=== PATIENT | male | born 1965 | race Caucasian/White ===

== ENCOUNTER → 2016-12-09 | Day surgery (SDC) | payer BC ==
[2016-12-02 11:43] VITALS: Ht 190.5 cm; Wt 106.8 kg
[~2016-12-09] VITALS: Ht 190.5 cm; Wt 106.8 kg
[~2016-12-09] MED LIST: ADVIN50/60 INH; ASCO500T16 PO; ATROPINE SULFATE 0.1 MG/ML 5ML SYR IV PRN; CALC1TAB25 PO; CHOL2000 PO; CLINDAMYCIN PHOS 150 MG/ML 2 ML VIAL IV SCH; CYCL10TA6 PO; DEXAMETHASONE SOD INJ 4 MG/ML VIAL ONE; DIAZ10TA3 PO; ECHI125T PO; EpHEDrine SULFATE 50MG/5ML SYR ONE; EpHEDrine SULFATE INJ 50 MG/ML AMP IV PRN; FENTANYL CITRATE INJ 50 MCG/1 ML 2 ML VIAL IV PRN; FENTANYL CITRATE INJ 50 MCG/1 ML 2 ML VIAL ONE; FLNIN/ NAE; HYDR25TA5 PO; HYDROmorphone INJ 1 MG/ML SYR IV PRN; KRIL1CAP24 PO; LACTATED RINGER'S 1000ML 1,000 ML IV SCH; LIDOCAINE HCL 2% 2 ML VIAL (20MG/ML) ONE; LISI20TA3 PO; LXP10 PO; MCRK20 PO; MELA1TAB5 PO; MIDAZOLAM HCL 1 MG/ML 2ML VIAL ONE; MULT-513 PO; NURSING VERBAL MED ORDER ONE; ONDANSETRON INJ 2 MG/ML 2 ML VIAL IV PRN; ONDANSETRON INJ 2 MG/ML 2 ML VIAL ONE; OXYCODONE/ACETAMINOPHEN 5-325 TAB ONE; PROMETHAZINE HCL INJ 12.5 MG in SODIUM CHLORIDE 0.9% 50ML 50 ML IV PRN; PROMETHAZINE HCL INJ 25 MG/ML 1 ML VIAL ONE; PROPOFOL IV EMULSION 10 MG/ML 20 ML VIAL IV ONE; ROPIVACAINE 0.5% 5 MG/ML 30 ML VIAL ONE; SNG10 PO; SODIUM CHLORIDE 0.9% 1000ML 1,000 ML IV SCH; VNTHFA/IN INH
--- NOTE | 2016-12-09 06:45 | History & Physical Bridge Note ---
H&P Re-Evaluation Bridge Note: I have examined the patient, reviewed the History & Physical and in the interval since the performance of the History & Physical I have noted the following changes of clinical significance: No changes noted
--- NOTE | 2016-12-09 06:47 | Discharge Instructions ---
Discharge Instructions Visit Reason for Visit: Left Shoulder Acromioclavicular Arthritis, Impinge Discharge Discharge Diagnosis / Problem: same Discharge Goals Goal(s): Decrease discomfort, Improve function, Increase independence Medications Stopped Medications Name(s): na Restart Stopped Medication(s): use scripts as directed Activity Recommendations Activity Limitations: as noted below Lifting Limitations: until after follow-up appointment Exercise/Sports Limitations: until after follow-up appointment May Resume Sexual Activity: when tolerated Shower/Bathe: keep incision dry Driving or Machine Use: resume 1 day after discharge Anesthesia . Post Anesthesia Instructions: If you have had General Anesthesia or IV Sedation: * Do not drive today. * Resume driving when surgeon permits. * Do not make important decisions or sign legal documents today. * Call surgeon for: 1. Temperature elevations greater than 101 degrees F. 2. Uncontrollable pain. 3. Excessive bleeding. 4. Persistent nausea and vomiting. 5. Medication intolerance (nausea, vomiting or rash). * For nausea and vomiting use only clear liquids such as: tea, soda, bouillon until nausea subsides, then gradually increase diet as tolerated. * If you have any concerns or questions, call your surgeon's office. If physician is unavailable and it is an emergency, call 911 or go to the nearest emergency room. . Instructions / Follow-Up Instructions / Follow-Up The following are instructions to follow after "Shoulder Surgery" including, Acromioplasty, Rotator Cuff Repair and Instability Surgery ACTIVITY RECOMMENDATIONS: * Minimize activity after surgery. * No excessive walking, jogging, sports or laboring. * Return to activity is individualized depending on the patient and type of surgery. * Driving is not permitted until at least your first post operative visit. Please ask your doctor when it is safe to resume driving. * Expect increased discomfort with increased activity. Continue to ice the shoulder as needed. SCHOOL/WORK RECOMMENDATIONS: * You may return to sedentary work or school when you are feeling more comfortable. This is usually 3-7 days after surgery. MEDICATIONS: * You will have a prescription for pain medication and an anti-inflammatory medication after surgery. * Use the pain medication for severe pain and the anti-inflammatory for less severe pain. Once the pain medication has run out, try to use the anti-inflammatory medication. If this is not effective, contact the office for assistance. * The pain medication may cause nausea, constipation and drowsiness. You should see how they affect you before driving or similar activity. * The anti-inflammatory medication may cause stomach upset and bleeding. If this occurs let your doctor know immediately . * Take a stool softener like Colace or a laxative like Senokot to prevent constipation. DIET: * Resume previous diet. SPECIAL CARE: ICE: You have the option of an ice cooler, gel packs or ice bags. * If you have an ice cooler, refer to the instructions for that device. The ice cooler may be used continuously. * If you do not have an ice cooler, you will need to use ice bags or gel packs. Do not apply ice directly to the skin. Use a thin dressing or herb shirt between the skin and ice bag. Apply ice for 20-30 minutes and repeat every 2-4 hours. This is especially important for the first 7-10 days after surgery. Once the pain improves, use ice as needed. ELEVATION: * You may be more comfortable sleeping in an upright position. Use the sling to elevate your arm. DRESSING: * Your dressing will be changed at your first therapy appointment approximately 4-5 days after surgery. Band-aids, tape strips or gauze may be applied. You may then change your dressing daily. * Reapply dressing followed by the EBIce cooling pad (if chosen) and then the sling. * Always wash your hands prior to touching the incision area. * Once the stitches are removed, you may leave the wound open to air or cover with gauze. * Expect some bloody drainage for the first few days after surgery. * Leave the tape strips, if present, in place for 5-7 days. * Band-aids and gauze may be changed daily. * There may be a gauze pad in your armpit area. This can be changed daily or replaced by a dry washcloth. SLING/BRACE: * You will need to use a sling or brace after surgery. The length of time the sling is used is dependent upon the type of surgery performed. * Arthroscopic Acromioplasty requires use of the sling for 2-4 weeks for comfort. * Labral procedures and Rotator Cuff Repairs require use of the sling for a longer period of time. Please check with your doctor prior to discontinuing the sling. BATHING: * You may shower or sponge-bathe immediately after surgery. The post operative shoulder dressing is mostly water-tight. You may shower right over this dressing, but be reasonably careful not to get the gauze or incision wet. * Once the dressing has been changed on the fourth or fifth day after surgery, you may shower and get the incision wet. * Wash with regular soap and water. * Do not bathe (submerge the incision), soak, swim or use a hot tub until the incision is completely healed over with normal skin and the doctor has given the OK to proceed. * There is no need to apply any ointments, powders or salves to your incision. * Do not apply alcohol or hydrogen peroxide directly to the incision. * Diluted peroxide (50:50 mixture with sterile saline) may be used to clean dried blood from around the incision area. THERAPY: * You will begin therapy four or five days after surgery. * Organized therapy with the therapist is important for the first 2-4 months after surgery depending on the type of procedure. During that time you will attend therapy 1-3 times per week. * You will also need to do daily exercises for range of motion and strength as instructed. * Patients who have a Capsular Shift Procedure will need to abide by temporary range of motion limitations. * Patients having Rotator Cuff Surgery are not allowed to actively lift their arms until 4-6 weeks after surgery. * Please check with your doctor regarding appropriate motion restrictions. FOLLOW UP VISIT: * If not already scheduled, please call the office at to schedule a follow-up appointment for 10 days after surgery and monthly thereafter. Diet Recommendations Recommended Home Diet: resume previous diet Pending Studies Studies pending at discharge: no Medical Emergencies . Who to Call and When: Medical Emergencies: If at any time you feel your situation is an emergency, please call 911 immediately. . Non-Emergent Contact Non-Emergency issues call your: Specialist Call Non-Emergent contact if: temperature is above 101.5 . . "Provider Documentation" section prepared by Wolf Chandler.
[2016-12-09] MEDS: EpINEphrine INJ 1MG/ML AMP 1 MG/ML AMP ONE (07:25)
--- NOTE | 2016-12-09 08:02 | [facility] Post Operative Brief Note ---
Immediate Operative Summary Operative Date Dec 09, 2016. Pre-Operative Diagnosis Left Shoulder AC Joint Arthritis, Impingement and Adhesive Capsulitis Post-Operative Diagnosis Same Procedure(s) Performed Left Shoulder Arthroscopy, Subacromial Decompression, Distal Clavicle Excision, Manipulation, Exam Under Anesthesia Surgeon Dr. Chandler Developer Programmer Analyst Surgeon(s) Dr. Pandey; Darwin Trejo PA-C Estimated Blood Loss 0 mL Findings adhesive capsulitis/ac djd/impingement Fluids (cc crystalloids) 700cc Specimens None Drains none Anesthesia lma/block Complication(s) None Disposition Recovery Room / PACU
--- NOTE | 2016-12-09 08:39 | OPERATIVE REPORT ---
DATE OF OPERATION: 12/09/2016 PREOPERATIVE DIAGNOSIS: Chronic restrictive capsular disease left shoulder with pain and impingement, AC joint arthropathy. POSTOPERATIVE DIAGNOSIS: Same. OPERATION PERFORMED: 1. Exam under anesthesia. 2. Diagnostic arthroscopy. 3. Resection AC joint. 4. Subacromial decompression with bursectomy. 5. Manipulation under anesthesia. SURGEON: Dr. Chandler. STEEL CHECKER: Dr. Durand. SECOND STILL OPERATOR GIN: Bhupendra Trejo PA-C PERIOPERATIVE SITUATION: Medically cleared male with intractable left shoulder pain has been going on for an extended period of time, has failed conservative management and wants to proceed with surgical treatment. OPERATION AND FINDINGS: OPERATION: The patient appropriately identified, site verified, consent verified, 900 mg of clindamycin confirmed as being given. The left shoulder was examined revealing forward flexion to 100 degrees, external rotation to 0, abduction to 80 degrees with external rotation to -10 in that position. Once anesthetized, the patient was then manipulated forward flexion got to full, abduction external rotation to 90 degrees and 110, external rotation at the side to 50, internal rotation at the 90 degree position to 50. The arm was then prepped and draped in usual routine fashion and scope placed in the posterior portal 2 cm medial and inferior to posterolateral tip of the acromion. Inspection of the joint revealed no major articular disease. The area of capsular releases from the manipulation were noted. These were lightly debrided. The biceps anchor was solid. Rotator cuff attachment was good on the articular side. This part of the procedure was then terminated. The subacromial space entered. There was an exuberant bursa. An anterolateral portal was then made with tedious positioning was finally identified and the shaver started and resected some of the bursa. The CA ligament was quite thick, it was released with the thermal device. The acromion was a type 3. It was burred down to a flat surface. The AC joint was hypertrophic. It was resected on its anterior surface then using the anterior portal, the medial surface of the acromion and the lateral surface of the clavicle resected. Viewing from the straight lateral portal there was an excellent resection. Viewing the rotator cuff there was no tearing noted. All debris was removed from the subacromial space, the procedure then terminated. All instruments and fluid were removed. The portals closed with 4-0 nylon, dressed with Xeroform, 4 x 4 gauze, ABD pads and Ioban dressing. Estimated blood loss trace. Crystalloid 700 mL. DVT prophylaxis none. I attest to the content of the Intraoperative Record and any orders documented therein. Any exceptio ns are noted below.
[2016-12-09 09:24] VITALS: TEMP 36.4
[2016-12-09 10:10] VITALS: BP 142/86; PULSE 71; O2SAT 96
--- NOTE | 2016-12-09 10:22 | Anesthesia Progress Nt - [facility] ---
Anesthesia Post Op Note Date & Time Dec 09, 2016 at 10:21 Vital Signs Pain Intensity: 6 Vital Signs Past 12 Hours Date Time Temp Pulse Resp B/P Pulse Ox O2 Delivery O2 Flow Rate FiO2 12/09/16 09:24 36.4 71 16 144/92 93 Room Air 12/09/16 09:18 81 14 127/71 12/09/16 09:18 85 14 89 12/09/16 09:15 36.4 12/09/16 09:14 128/84 12/09/16 09:13 76 15 94 12/09/16 09:13 77 12 92 12/09/16 09:08 134/76 12/09/16 09:03 77 15 129/79 91 12/09/16 09:03 77 15 12/09/16 08:58 77 19 91 12/09/16 08:58 75 26 130/84 94 12/09/16 08:54 133/85 12/09/16 08:49 154/105 12/09/16 08:48 90 19 12/09/16 08:48 90 19 93 12/09/16 08:43 81 21 138/83 98 12/09/16 08:43 85 13 98 12/09/16 08:38 133/85 12/09/16 08:33 75 19 121/90 98 12/09/16 08:33 75 19 12/09/16 08:28 77 15 127/78 97 12/09/16 08:28 73 15 97 12/09/16 08:23 126/80 12/09/16 08:18 75 15 127/85 98 12/09/16 08:18 74 16 98 12/09/16 08:13 76 7 12/09/16 08:13 36.3 76 16 120/77 97 Diffusion Mask 8 12/09/16 08:13 75 7 126/79 97 12/09/16 07:00 68 14 117/85 96 Nasal Cannula 2 12/09/16 06:55 57 16 123/91 93 Nasal Cannula 2 12/09/16 06:54 61 16 129/83 92 Nasal Cannula 2 12/09/16 06:49 36.5 73 20 115/82 95 Room Air Notes Mental Status: alert / awake / arousable, participated in evaluation Pt Amnestic to Procedure: Yes Nausea / Vomiting: adequately controlled Pain: adequately controlled Airway Patency, RR, SpO2: stable & adequate BP & HR: stable & adequate Hydration State: stable & adequate Anesthetic Complications: no major complications apparent
--- NOTE | 2016-12-09 13:41 | OPERATIVE REPORT ---
PREOPERATIVE DIAGNOSIS: Left shoulder chronic adhesive capsulitis, impingement, and AC joint arthropathy. POSTOPERATIVE DIAGNOSIS: Left shoulder same. PROCEDURE: Left shoulder arthroscopy, resection of the AC joint, subacromial decompression with bursectomy, and manipulation under anesthesia. SURGEON: Dr. Chandler. PLANER TAILER: Dr. Durand. SECOND PLANER TAILER: Bhupendra Trejo PA-C. HISTORY OF PRESENT ILLNESS: This 51-year-old white male presented to the office with complaints of left shoulder pain and loss of motion that had failed conservative care. He elected to proceed with surgical intervention in hopes of improving his range of motion and comfort. Preoperative x-ray and MRI were obtained. OPERATION: The patient was administered regional block and then taken to the operating room where he was given general anesthetic. He was prepped and draped in the usual sterile fashion. Please see Dr. Chandler's operative report for specifics of the procedure. I was present for the entire case from initial patient positioning through final wound closure. Assistance was provided in arthroscopy and final wound closure. The patient was taken to the recovery room in satisfactory condition.
== END | disposition home or self-care (01) ==
LOC: X.SURG 06:21
PROVIDERS: ATTEND Physical Medicine & Rehabilitation Sports Medicine
DX: M25.612 Stiffness of left shoulder, not elsewhere classified (principal); M19.012 Primary osteoarthritis, left shoulder; I10 Essential (primary) hypertension; J45.909 Unspecified asthma, uncomplicated

== ENCOUNTER → 2016-12-10 | Outpatient (CLI) | payer BC ==
[~2016-12-10] MED LIST changes: -ATROPINE SULFATE 0.1 MG/ML 5ML SYR IV PRN; -CLINDAMYCIN PHOS 150 MG/ML 2 ML VIAL IV SCH; -DEXAMETHASONE SOD INJ 4 MG/ML VIAL ONE; -EpHEDrine SULFATE 50MG/5ML SYR ONE; -EpHEDrine SULFATE INJ 50 MG/ML AMP IV PRN; -FENTANYL CITRATE INJ 50 MCG/1 ML 2 ML VIAL IV PRN; -FENTANYL CITRATE INJ 50 MCG/1 ML 2 ML VIAL ONE; -HYDROmorphone INJ 1 MG/ML SYR IV PRN; -LACTATED RINGER'S 1000ML 1,000 ML IV SCH; -LIDOCAINE HCL 2% 2 ML VIAL (20MG/ML) ONE; -MIDAZOLAM HCL 1 MG/ML 2ML VIAL ONE; -NURSING VERBAL MED ORDER ONE; -ONDANSETRON INJ 2 MG/ML 2 ML VIAL IV PRN; -ONDANSETRON INJ 2 MG/ML 2 ML VIAL ONE; -OXYCODONE/ACETAMINOPHEN 5-325 TAB ONE; -PROMETHAZINE HCL INJ 12.5 MG in SODIUM CHLORIDE 0.9% 50ML 50 ML IV PRN; -PROMETHAZINE HCL INJ 25 MG/ML 1 ML VIAL ONE; -PROPOFOL IV EMULSION 10 MG/ML 20 ML VIAL IV ONE; -ROPIVACAINE 0.5% 5 MG/ML 30 ML VIAL ONE; -SODIUM CHLORIDE 0.9% 1000ML 1,000 ML IV SCH
== END | disposition home or self-care (01) ==
LOC: C.LAB 13:20
PROVIDERS: ATTEND Family Medicine
DX: R07.9 Chest pain, unspecified (principal)

== ENCOUNTER → 2017-01-19 | Outpatient (CLI) | payer BC | END | disposition home or self-care (01) | LOC: C.RDSM 10:40 | PROVIDERS: ATTEND Physical Medicine & Rehabilitation Sports Medicine | DX: M75.02 Adhesive capsulitis of left shoulder (principal) ==

== ENCOUNTER → 2017-04-01 | Outpatient (CLI) | payer BC ==
[2017-04-01 16:36] LABS: THYROID STIMULATING HORMONE 2.19 uIu/ml (0.300-4.500)
== END | disposition home or self-care (01) ==
LOC: C.LAB1850 14:18
PROVIDERS: ATTEND Physician Assistant
DX: R53.83 Other fatigue (principal)

== ENCOUNTER 2017-04-17 16:03 | Inpatient (IN) | payer BC ==
[~2017-04-17] VITALS: Ht 190.5 cm; Wt 112.2 kg
[~2017-04-17 16:03] MED LIST changes: -KRIL1CAP24 PO; -MCRK20 PO
[2017-04-17] MEDS ORDERED: ASPIRIN 324 MG CHEW PO STA (16:30)
[2017-04-17] MEDS ORDERED: NITROGLYCERIN OINT 2% 1GM PACKET EXT ONE (16:30)
[2017-04-17] MEDS ORDERED: KRIL1CAP24 PO (16:32)
[2017-04-17 17:06] LABS: BASO % 0.2 %; BASO ABS # 0.01 K/uL (0-0.2); COMPLETE YES; EOS % 6.3 %; HEMATOCRIT 43.9 % (42-52); LYMPH % 26.6 %; LYMPH ABS # 1.69 K/uL (1.2-3.4); MEAN CELL VOLUME 83.3 fL (80-100); MEAN CORPUSCULAR HEMOGLOBIN 28.1 pg (25-34); MEAN CORPUSCULAR HGB CONC 33.7 g/dl (32-36); MEAN PLATELET VOLUME 10.7 fL (7.4-10.4); MONO % 5.8 %; NEUT % 61.1 %; PLATELET COUNT 213 K/uL (130-400); RED BLOOD COUNT 5.27 M/uL (4.7-6.1); WHITE BLOOD COUNT 6.35 K/uL (4.8-10.8)
[2017-04-17 17:14] LABS: PARTIAL THROMBOPLASTIN RATIO 1.1; PROTHROMBIN TIME (PATIENT) 10.6 SECONDS (9.0-12.0)
[2017-04-17] MEDS ORDERED: AMIODARONE IV BOLUS / DRIP IV STA ×2 (17:21→19:13)
[2017-04-17 17:25] LABS: BUN/CREATININE RATIO 18.6 (10-20); CALCIUM 8.4 mg/dl (8.5-10.1); CREATININE 1.2 mg/dl (0.60-1.40); MAGNESIUM 2.4 mg/dl (1.8-2.4); POTASSIUM 2.9 mmol/L (3.5-5.1)
[2017-04-17] MEDS ORDERED: AMIODARONE 150MG / 100ML D5W ONE (17:27)
[2017-04-17 17:30] LABS: URINE APPEARANCE CLEAR (CLEAR); URINE BILIRUBIN NEG (NEG); URINE COLOR YELLOW; URINE NITRITE NEG (NEG); URINE SPECIFIC GRAVITY 1.012 (1.000-1.030); UROBILINOGEN NEG (NEG); ZZUR CULT IF INDIC CLEAN CATCH NO
[2017-04-17] MEDS ORDERED: AMIODARONE 360MG / 200ML D5W ONE (17:32)
[2017-04-17] MEDS ORDERED: POTASSIUM CHLORIDE 10 MEQ / 100ML WTR IV STA (17:32)
[2017-04-17] MEDS ORDERED: AMIODARONE / D5W 100 ML IV STA (17:33)
--- NOTE | 2017-04-17 17:33 | DIAGNOSTIC IMAGING REPORT ---
CHEST ONE VIEW PORTABLE CLINICAL HISTORY: Chest pain, shortness of breath and dizziness. COMPARISON STUDY: Chest radiograph February 06, 2015. FINDINGS: Lung volumes are normal. There is no pneumothorax or pleural effusion. There is no consolidation to suggest pneumonia. Cardiomediastinal silhouette is stable. There is no evidence of pulmonary edema. The appearance of the chest is unchanged. IMPRESSION: No acute cardiopulmonary findings. Electronically signed by: Vasile Parikh M.D. 04/17/2017 5:32 PM Dictated Date/Time: 04/17/2017 5:31 PM
[2017-04-17 17:34] LABS: MANUAL MICROSCOPIC REQUIRED? NO; REVIEW REQ? NO
[2017-04-17 17:37] LABS: CKMB/CK RATIO 1.5 (0-3.0); THYROID STIMULATING HORMONE 2.04 uIu/ml (0.300-4.500)
[2017-04-17] MEDS ORDERED: AMIODARONE / D5W 200 ML IV SCH ×3 (17:45→23:45)
[2017-04-17 18:05] LABS: LYME DISEASE AB IGG NEG (NEG); LYME DISEASE AB IGM NEG (NEG)
[2017-04-17] MEDS ORDERED: NITROGLYCERIN 0.4 MG SL PER TAB CHARGE SL PRN (19:00)
[2017-04-17] MEDS ORDERED: ACETAMINOPHEN 325 MG TAB PO PRN (19:00)
[2017-04-17] MEDS ORDERED: ONDANSETRON INJ 2 MG/ML 2 ML VIAL IV PRN (19:00)
[2017-04-17] MEDS ORDERED: MAGNESIUM HYDROXIDE SUSP 30 ML UDC PO PRN (19:00)
[2017-04-17] MEDS ORDERED: ECHINACEA PO PRN (19:15)
[2017-04-17] MEDS ORDERED: ALBUTEROL HFA 8 GM INHALER INH PRN (19:15)
[2017-04-17] MEDS ORDERED: FLUTICASONE/SALMETEROL (ADVAIR) 500/50 INH 14 PUFF INH PRN (19:15)
--- NOTE | 2017-04-17 19:26 | EMERGENCY ROOM VISIT NOTE ---
History First contact with patient: 16:15 Chief Complaint: CHEST PAIN Stated Complaint: DIZZY,SOB,CHEST PAIN,SORE L ARM Nursing Triage Summary: pt c/o sob for last hour or so. has chest pain described as sore. soreness in left arm. pt reports hx of asthma does not feel like asthma. feels dizzy History of Present Illness The patient is a 51 year old male who presents to the Emergency Room with complaints of chest pain and shortness of breath for the past hour. He states that his left arm is with soreness but not distinct pain. The patient has a history of bad asthma, but this does not feel like his normal asthma exacerbations. The patient reports over the past few weeks he has had similar episodes that have lasted for a shorter duration before resolving. He states that his symptoms began today while he was sitting at his desk at work. The patient states that he did have lightheadedness and dizziness when walking outside to go to his car. The patient does not have a history of cardiac disease or diabetes. No recent travel history. He has not had fever or chills. He does not report other complaints and rates his discomfort a dull 8/ 10. He has not taken anything [id number] for his discomfort. He does not identify any alleviating or aggravating factors. Review of Systems More than 10 systems were reviewed and otherwise negative with the exception of history of present illness. Past Medical/Surgical History Medical Problems: (1) Asthma (2) Benign hypertension (3) Bronchitis (4) Chest pain (5) Depression (6) Migraines (7) Pneumonia (8) Vomiting Family History FH: cancer FHx: heart disease Hypertension Social History Smoking Status: Never Smoker Alcohol Use: occasionally Drug Use: none Marital Status: Housing Status: lives with family Occupation Status: employed Current/Historical Medications Scheduled Ascorbic Acid (Ascorbic Acid), 500 MG PO QAM Calcium W/ Magnesium (Calcium Magnesium 750), 2 TABS PO HS Cholecalciferol (Vitamin D3), 1 CAP PO QAM Cyclobenzaprine Hcl (Flexeril), 10 MG PO HS Diazepam (Valium), 10 MG PO HS Escitalopram Oxalate (Escitalopram Oxalate), 5 MG PO QAM Fluticasone Propionate (Fluticasone Propionate), 2 SPRAYS TG QAM Hydrochlorothiazide (Hydrochlorothiazide), 25 MG PO QAM Krill Oil (Krill Oil 500 mg), 500 MG PO QAM Lisinopril (Prinivil), 20 MG PO QAM Montelukast Sod (Montelukast Sodium), 10 MG PO QAM Multivitamins/Minerals (Mvi With Minerals), 1 TAB PO QAM Scheduled PRN Albuterol Hfa (Ventolin Hfa), 2-4 PUFFS INH Q6H PRN for SOB/Wheezing Echinacea (Echinacea), 2 TAB PO DAILY PRN for PRN Fluticasone Prop/Salmeterol (Advair Diskus 500/50 60 Dose), 1 PUFF INH BID PRN for PRN Allergies Coded Allergies: Amoxicillin (Verified Allergy, Unknown, RX AN , 04/17/17) Clavulanic Acid (Verified Allergy, Unknown, RX AN , 04/17/17) Erythromycin (Verified Allergy, Unknown, REACTION TO PCN AND AUGMENTIN, ) Penicillins (Verified Allergy, Unknown, REACTION AN - UNKNOWN, ) Tetracyclines (Verified Allergy, Unknown, VOMITING AND RASH, 04/17/17) Physical Exam Vital Signs Date Time Temp Pulse Resp B/P Pulse Ox O2 Delivery O2 Flow Rate FiO2 04/17/17 19:02 133/91 04/17/17 19:00 67 14 98 04/17/17 18:56 136/91 04/17/17 18:51 129/93 04/17/17 18:46 135/83 04/17/17 18:45 64 19 98 04/17/17 18:41 147/87 04/17/17 18:36 134/92 04/17/17 18:31 145/109 04/17/17 18:30 59 21 97 04/17/17 18:26 110/88 04/17/17 18:23 147/87 04/17/17 18:15 68 15 04/17/17 18:11 134/84 04/17/17 18:06 126/84 04/17/17 18:01 137/80 04/17/17 18:00 67 20 91 04/17/17 17:45 70 16 120/84 97 Room Air 04/17/17 17:35 72 16 136/90 98 Room Air 04/17/17 17:00 81 16 119/69 96 Room Air 04/17/17 16:42 77 5/26/17 16:21 98 Room Air 04/17/17 16:05 36.7 78 18 135/84 95 Room Air Physical Exam VITALS: Vitals are noted on the nurse's note and reviewed by myself. Vital signs stable. GENERAL: Well-developed, well-nourished, white male, who is in no acute distress and resting comfortably. Patient is cooperative with the examination. HEAD: Normocephalic atraumatic. HEART: Regular rate with frequent PVCs. No murmur appreciated. LUNGS: Clear to auscultation bilaterally without wheezes, rales or rhonchi. No retractions or accessory muscle use. ABDOMEN: Positive normal bowel sounds x 4. Soft, nontender, without masses or organomegaly. No guarding or rebound tenderness. MUSCULOSKELETAL: No muscle atrophy, erythema, or edema noted. Full range of motion without joint tenderness in all extremities. Medical Decision & Procedures ER Provider Diagnostic Interpretation: CHEST ONE VIEW PORTABLE CLINICAL HISTORY: Chest pain, shortness of breath and dizziness. COMPARISON STUDY: Chest radiograph February 06, 2015. FINDINGS: Lung volumes are normal. There is no pneumothorax or pleural effusion. There is no consolidation to suggest pneumonia. Cardiomediastinal silhouette is stable. There is no evidence of pulmonary edema. The appearance of the chest is unchanged. IMPRESSION: No acute cardiopulmonary findings. Laboratory Results 04/17/17 16:50 Red Blood Count 5.27, Mean Corpuscular Volume 83.3, Mean Corpuscular Hemoglobin 28.1, Mean Corpuscular Hemoglobin Concent 33.7, Mean Platelet Volume 10.7, Neutrophils (%) (Auto) 61.1, Lymphocytes (%) (Auto) 26.6, Monocytes (%) (Auto) 5.8, Eosinophils (%) (Auto) 6.3, Basophils (%) (Auto) 0.2, Neutrophils # (Auto) 3.88, Lymphocytes # (Auto) 1.69, Monocytes # (Auto) 0.37, Eosinophils # (Auto) 0.40, Basophils # (Auto) 0.01 04/17/17 16:50 Test 04/17/17 16:50 04/17/17 16:57 04/17/17 17:15 White Blood Count 6.35 K/uL (4.8-10.8) Red Blood Count 5.27 M/uL (4.7-6.1) Hemoglobin 14.8 g/dL (14.0-18.0) Hematocrit 43.9 % (42-52) Mean Corpuscular Volume 83.3 fL (80-100) Mean Corpuscular Hemoglobin 28.1 pg (25-34) Mean Corpuscular Hemoglobin Concent 33.7 g/dl (32-36) Platelet Count 213 K/uL (130-400) Mean Platelet Volume 10.7 fL (7.4-10.4) Neutrophils (%) (Auto) 61.1 % Lymphocytes (%) (Auto) 26.6 % Monocytes (%) (Auto) 5.8 % Eosinophils (%) (Auto) 6.3 % Basophils (%) (Auto) 0.2 % Neutrophils # (Auto) 3.88 K/uL (1.4-6.5) Lymphocytes # (Auto) 1.69 K/uL (1.2-3.4) Monocytes # (Auto) 0.37 K/uL (0.11-0.59) Eosinophils # (Auto) 0.40 K/uL (0-0.5) Basophils # (Auto) 0.01 K/uL (0-0.2) RDW Standard Deviation 38.0 fL (36.4-46.3) RDW Coefficient of Variation 12.6 % (11.5-14.5) Immature Granulocyte % (Auto) 0.0 % Immature Granulocyte # (Auto) 0.00 K/uL (0.00-0.02) Prothrombin Time 10.6 SECONDS (9.0-12.0) Prothromb Time International Ratio 1.0 (0.9-1.1) Activated Partial Thromboplast Time 28.2 SECONDS (21.0-31.0) Partial Thromboplastin Ratio 1.1 Anion Gap 9.0 mmol/L (3-11) Est Creatinine Clear Calc Drug Dose 89.0 ml/min Estimated GFR () 81.8 Estimated GFR (Non- 70.6 BUN/Creatinine Ratio 18.6 (10-20) Calcium Level 8.4 mg/dl (8.5-10.1) Magnesium Level 2.4 mg/dl (1.8-2.4) Total Bilirubin 0.5 mg/dl (0.2-1) Aspartate Amino Transf (AST/SGOT) 19 U/L (15-37) Alanine Aminotransferase (ALT/SGPT) 29 U/L (12-78) Alkaline Phosphatase 55 U/L (45-117) Total Creatine Kinase 94 U/L (39-308) Creatine Kinase MB 1.4 ng/ml (0.5-3.6) Creatine Kinase MB Ratio 1.5 (0-3.0) Total Protein 7.1 gm/dl (6.4-8.2) Albumin 3.6 gm/dl (3.4-5.0) Globulin 3.5 gm/dl (2.5-4.0) Albumin/Globulin Ratio 1.0 (0.9-2) Lipase 198 U/L (73-393) Thyroid Stimulating Hormone (TSH) 2.040 uIu/ml (0.300-4.500) Lyme Disease IgG Antibody NEG (NEG) Lyme Disease IgM Antibody NEG (NEG) Bedside D-Dimer 289 ng/mlFEU (0-450) Bedside Troponin I 0.000 ng/ml (0-0.045) Urine Color YELLOW Urine Appearance CLEAR (CLEAR) Urine pH 5.0 (4.5-7.5) Urine Specific [place] 1.012 (1.000-1.030) Urine Protein NEG (NEG) Urine Glucose (UA) NEG (NEG) Urine Ketones NEG (NEG) Urine Occult Blood NEG (NEG) Urine Nitrite NEG (NEG) Urine Bilirubin NEG (NEG) Urine Urobilinogen NEG (NEG) Urine Leukocyte Esterase NEG (NEG) Medications Administered Medications (Trade) Dose Ordered Sig/[place] Start Time Stop Time Status Last Admin Dose Admin Aspirin (Aspirin Chew) 324 mg NOW STAT PO 04/17/17 16:30 04/17/17 16:32 DC 04/17/17 17:00 324 MG Nitroglycerin (Nitroglycerin 2% Oint) 1 inch NOW ONCE EXT 04/17/17 16:30 04/17/17 16:32 DC 04/17/17 17:01 1 INCH Amiodarone HCL/ Dextrose (Nexterone / D5w) 150 mg STK-MED ONCE .ROUTE 04/17/17 17:27 04/17/17 17:28 DC 04/17/17 17:39 150 MG Potassium Chloride (Kcl 10 Meq / Wtr) 20 meq NOW STAT IV 04/17/17 17:32 04/17/17 17:34 DC 04/17/17 18:23 10 MEQ Amiodarone HCL/ Dextrose (Nexterone / D5w) 360 mg STK-MED ONCE .ROUTE 04/17/17 17:32 04/17/17 17:33 DC 04/17/17 17:40 360 MG ED Course Physical exam and history were performed. Nursing notes and EMR were reviewed. Patient appears to have chest pain, lightheadedness, and shortness of breath for the past few hours. EKG was performed and shows normal sinus rhythm at 86 bpm with frequent PVCs. There is a nonspecific T wave abnormality which appears new from 02/07/2015. IV access was established and labs were obtained. The patient was medicated as above. Chest x-ray was performed. The patient was placed on the ekg monitor tech. The patient's blood work is as above and was reviewed. He does not have a significant elevated white blood cell count, gross anemia, or significant bandemia. His potassium is 2.9 and this was repleted through the IV. Mag is within normal limits. The patient's d-dimer and troponin 1 are both negative. Chest x-rays without acute findings. After about 1 hour stay here in the emergency department the patient was found to have an 11 beat run of nonsustained ventricular tachycardia while on the monitor. I immediately reevaluated the patient following this episode, and he remained in stable condition. The patient case was discussed with my attending physician, Dr. Pedroza, and the patient was given a bolus of amiodarone with a drip. Other modalities were considered, however he is a bad asthmatic and beta blockers were felt contraindicated. The case was discussed with the on-call hospitalist, who agreed to evaluate the patient here in the emergency department for further management. Please see their dictation for further patient course, plan, and disposition. The chart was completed utilizing [employer] Speech Voice Recognition Software. Grammatical errors, random word insertions, pronoun errors, and incomplete sentences are an occasional consequence of this system due to software limitations, ambient noise, and hardware issues. Any formal questions or concerns about the content, text, or information contained within the body of this dictation should be directly addressed to the provider for clarification. . Medical Decision Differential diagnosis includes, but is not limited to: Myocardial infarction, dysrhythmia, pericarditis, pneumothorax, aortic aneurysm/dissection, DVT/PE, anxiety, GERD, PUD, electrolyte imbalance, thyroid disorder, pneumonia, bronchitis, pancreatitis, and others Impression Primary Impression: Ventricular tachycardia, non-sustained Additional Impression: Chest pain Departure Information Referrals Jhonny Damian M.D. (PCP) Patient Instructions [facility] Problem Qualifiers
--- NOTE | 2017-04-17 19:27 | History and Physical ---
History & Physical Date & Time of Service: April 17, 2017 at 19:16 Chief Complaint: Dizzy,Sob,Chest Pain,Sore L Arm Primary Care Physician: Jhonny Damian M.D. History of Present Illness Source: patient 51 y/o M c/o chest pain. Pt has been having chest pain on and off for the last two weeks. It was mostly on the L, but moved to the R on occasion. It would last 30-60 minutes and resolve spontaneously. This morning the chest pain was more intense and did not resolve. He was having chest tightness similar to when he has had asthma attacks in the past and felt like he couldn't catch his breath. He was not frankly SOB. Prior to the last two weeks, his only chest pain was asthma related and not similar to this at all. Pt states the last few weeks at work have been stressful for him. Today, he was looking forward to work as most of the office was off due to the long weekend. There was no stress there today. He has also noted occasional palpitations over the last two weeks. Pt denies fever, abd pain, n/v/c/d, LE pain or swelling. ROS as noted above, otherwise neg. Pt's EKG showed PVCs, however during his work-up he had an 11 beat run of vtach that resolved spontaneously. He was started on amio. Pt has not had further chest pain. He does have some R UE pain that started after his K infusion. After my interview and exam, nursing found me to report another 11 beat vtach run that again resolved spontaneously. She was actually in with the pt and he had no chest pain or other complaints with this. Past Medical/Surgical History Medical Problems: (1) Asthma Status: Chronic (2) Benign hypertension Status: Chronic (3) Bronchitis Status: Resolved (4) Depression Status: Chronic (5) Migraines Status: Chronic (6) Pneumonia Status: Resolved (7) Vomiting Status: Resolved Insomnia RLS Only prior hospitalizations were for asthma Family History Family history was reviewed; no changes noted. Social History Smoking Status: Never Smoker Alcohol Use: none Drug Use: none Marital Status: Occupational Status: employed Immunizations History of Influenza Vaccine: Yes Influenza Vaccine Date: Oct 26, 2006 History of Tetanus Vaccine?: Yes History of Pneumococcal: Yes Pneumococcal Date: March 26, 2005 History of Hepatitis B Vaccine: Unknown Multi-Drug Resistant Organisms History of MDRO: No Allergies Coded Allergies: Amoxicillin (Verified Allergy, Unknown, RX AN , 04/17/17) Clavulanic Acid (Verified Allergy, Unknown, RX AN INFANT, 04/17/17) Erythromycin (Verified Allergy, Unknown, REACTION TO PCN AND AUGMENTIN, ) Penicillins (Verified Allergy, Unknown, REACTION AN - UNKNOWN, ) Tetracyclines (Verified Allergy, Unknown, VOMITING AND RASH, 04/17/17) Home Medications Scheduled Ascorbic Acid (Ascorbic Acid), 500 MG PO QAM Calcium W/ Magnesium (Calcium Magnesium 750), 2 TABS PO HS Cholecalciferol (Vitamin D3), 1 CAP PO QAM Cyclobenzaprine Hcl (Flexeril), 10 MG PO HS Diazepam (Valium), 10 MG PO HS Escitalopram Oxalate (Escitalopram Oxalate), 5 MG PO QAM Fluticasone Propionate (Fluticasone Propionate), 2 SPRAYS TG QAM Hydrochlorothiazide (Hydrochlorothiazide), 25 MG PO QAM Krill Oil (Krill Oil 500 mg), 500 MG PO QAM Lisinopril (Prinivil), 20 MG PO QAM Montelukast Sod (Montelukast Sodium), 10 MG PO QAM Multivitamins/Minerals (Mvi With Minerals), 1 TAB PO QAM Scheduled PRN Albuterol Hfa (Ventolin Hfa), 2-4 PUFFS INH Q6H PRN for SOB/Wheezing Echinacea (Echinacea), 2 TAB PO DAILY PRN for PRN Fluticasone Prop/Salmeterol (Advair Diskus 500/50 60 Dose), 1 PUFF INH BID PRN for PRN Physical Exam Vital Signs Date Time Temp Pulse Resp B/P Pulse Ox O2 Delivery O2 Flow Rate FiO2 04/17/17 19:02 133/91 04/17/17 19:00 67 14 98 04/17/17 18:56 136/91 04/17/17 18:51 129/93 04/17/17 18:46 135/83 04/17/17 18:45 64 19 98 04/17/17 18:41 147/87 04/17/17 18:36 134/92 04/17/17 18:31 145/109 04/17/17 18:30 59 21 97 5/26/17 18:26 110/88 04/17/17 18:23 147/87 04/17/17 18:15 68 15 04/17/17 18:11 134/84 04/17/17 18:06 126/84 04/17/17 18:01 137/80 04/17/17 18:00 67 20 91 04/17/17 17:45 70 16 120/84 97 Room Air 04/17/17 17:35 72 16 136/90 98 Room Air 04/17/17 17:00 81 16 119/69 96 Room Air 04/17/17 16:42 77 04/17/17 16:21 98 Room Air 04/17/17 16:05 36.7 78 18 135/84 95 Room Air General Appearance: WD/WN, no apparent distress Head: normocephalic, atraumatic Respiratory/Chest: normal breath sounds, no respiratory distress Cardiovascular: regular rate, rhythm, no edema Abdomen/GI: non tender, soft Extremities/Musculoskelatal: no calf tenderness, no pedal edema Neurologic/Psych: alert, normal mood/affect, oriented x 3 Skin: normal color, warm/dry Diagnostics Laboratory Results Results Past 24 Hours Test 04/17/17 16:50 04/17/17 16:57 04/17/17 17:15 Range/Units White Blood Count 6.35 4.8-10.8 K/uL Red Blood Count 5.27 4.7-6.1 M/uL Hemoglobin 14.8 14.0-18.0 g/dL Hematocrit 43.9 42-52 % Mean Corpuscular Volume 83.3 80-100 fL Mean Corpuscular Hemoglobin 28.1 25-34 pg Mean Corpuscular Hemoglobin Concent 33.7 32-36 g/dl Platelet Count 213 130-400 K/uL Mean Platelet Volume 10.7 7.4-10.4 fL Neutrophils (%) (Auto) 61.1 % Lymphocytes (%) (Auto) 26.6 % Monocytes (%) (Auto) 5.8 % Eosinophils (%) (Auto) 6.3 % Basophils (%) (Auto) 0.2 % Neutrophils # (Auto) 3.88 1.4-6.5 K/uL Lymphocytes # (Auto) 1.69 1.2-3.4 K/uL Monocytes # (Auto) 0.37 0.11-0.59 K/uL Eosinophils # (Auto) 0.40 0-0.5 K/uL Basophils # (Auto) 0.01 0-0.2 K/uL RDW Standard Deviation 38.0 36.4-46.3 fL RDW Coefficient of Variation 12.6 11.5-14.5 % Immature Granulocyte % (Auto) 0.0 % Immature Granulocyte # (Auto) 0.00 0.00-0.02 K/uL Prothrombin Time 10.6 9.0-12.0 SECONDS Prothromb Time International Ratio 1.0 0.9-1.1 Activated Partial Thromboplast Time 28.2 21.0-31.0 SECONDS Partial Thromboplastin Ratio 1.1 Sodium Level 141 136-145 mmol/L Potassium Level 2.9 3.5-5.1 mmol/L Chloride Level 106 98-107 mmol/L Carbon Dioxide Level 26 21-32 mmol/L Anion Gap 9.0 3-11 mmol/L Blood Urea Nitrogen 22 7-18 mg/dl Creatinine 1.20 0.60-1.40 mg/dl Est Creatinine Clear Calc Drug Dose 89.0 ml/min Estimated GFR () 81.8 Estimated GFR (Non- 70.6 BUN/Creatinine Ratio 18.6 10-20 Random Glucose 119 70-99 mg/dl Calcium Level 8.4 8.5-10.1 mg/dl Magnesium Level 2.4 1.8-2.4 mg/dl Total Bilirubin 0.5 0.2-1 mg/dl Aspartate Amino Transf (AST/SGOT) 19 15-37 U/L Alanine Aminotransferase (ALT/SGPT) 29 12-78 U/L Alkaline Phosphatase 55 45-117 U/L Total Creatine Kinase 94 39-308 U/L Creatine Kinase MB 1.4 0.5-3.6 ng/ml Creatine Kinase MB Ratio 1.5 0-3.0 Total Protein 7.1 6.4-8.2 gm/dl Albumin 3.6 3.4-5.0 gm/dl Globulin 3.5 2.5-4.0 gm/dl Albumin/Globulin Ratio 1.0 0.9-2 Lipase 198 73-393 U/L Thyroid Stimulating Hormone (TSH) 2.040 0.300-4.500 uIu/ml Lyme Disease IgG Antibody NEG NEG Lyme Disease IgM Antibody NEG NEG Bedside D-Dimer 289 0-450 ng/mlFEU Bedside Troponin I 0.000 0-0.045 ng/ml Urine Color YELLOW Urine Appearance CLEAR CLEAR Urine pH 5.0 4.5-7.5 Urine Specific [place] 1.012 1.000-1.030 Urine Protein NEG NEG Urine Glucose (UA) NEG NEG Urine Ketones NEG NEG Urine Occult Blood NEG NEG Urine Nitrite NEG NEG Urine Bilirubin NEG NEG Urine Urobilinogen NEG NEG Urine Leukocyte Esterase NEG NEG CXR normal EKG As above Impression Assessment and Plan 51 y/o M who was admitted on 04/17 with chest pain. Chest pain: Noted vtach in the ED x2 Possibly related to hypoK Trop neg x1, serials pending EKG as noted ECHO pending CBC WNL Ddimer neg Lyme neg TSH WNL Tele monitor, amio drip Dr. Bedolla is aware of pt and agrees with current plan HypoK: replace IV and monitor Asthma: hx of multiple hospitalizations, stable now PRN meds as at home RLS/insomnia: continue home meds Depression: weaning off of lexapro HTN: continue home meds Other: Full code Lovenox for DVT proph Reg diet Level of Care Telemetry VTE Prophylaxis VTE Risk Assessment Done? Y/N: Yes Risk Level: Low
[2017-04-17 19:45] VITALS: BP 148/90; PULSE 59; TEMP 37.3; O2SAT 95; Ht 190.5 cm; Wt 112.2 kg
[2017-04-17] MEDS ORDERED: MAGNESIUM PO SCH (21:00)
[2017-04-17] MEDS ORDERED: CALCIUM PO SCH (21:00)
[2017-04-17] MEDS: DIAZEPAM 5MG TAB PO SCH (21:04)
[2017-04-17] MEDS: ENOXAPARIN 40 MG/0.4 ML SYR SC SCH (21:04)
[2017-04-17] MEDS: CYCLOBENZAPRINE HCL 10 MG TAB PO SCH (21:04)
[2017-04-17 23:48] VITALS: BP 131/76; PULSE 57; TEMP 36.3; O2SAT 92
[2017-04-18] VITALS (8 sets, daily range): BP systolic 110–139; BP diastolic 69–86; PULSE 51–80; TEMP 36.5–36.8; O2SAT 95–97
[2017-04-18] MEDS ORDERED: AMIODARONE / D5W 200 ML IV SCH (01:31)
[2017-04-18 03:10] LABS: BUN/CREATININE RATIO 20.1 (10-20); CALCIUM 8.2 mg/dl (8.5-10.1); CREATININE 1.1 mg/dl (0.60-1.40); POTASSIUM 3.2 mmol/L (3.5-5.1)
[2017-04-18] MEDS ORDERED: NURSING VERBAL MED ORDER ONE ×2 (03:15→08:00)
[2017-04-18] MEDS ORDERED: POTASSIUM CHLORIDE 10 MEQ TABCR PO ONE ×2 (04:30→08:45)
[2017-04-18 05:56] LABS: BLOOD UREA NITROGEN 21 mg/dl (7-18); BUN/CREATININE RATIO 19.5 (10-20); CARBON DIOXIDE 32 mmol/L (21-32); CHLORIDE 107 mmol/L (98-107); GLUCOSE 90 mg/dl (70-99); POTASSIUM 3.5 mmol/L (3.5-5.1); SODIUM 143 mmol/L (136-145)
--- NOTE | 2017-04-18 07:13 | Progress Note ---
Progress Note Date of Service April 18, 2017. Progress Note Pt was placed on Amio earlier in day due to VTs with CP - later in maureen had episodes of Junctional rhythm with dizziness and diaphoresis. Discussed with cardio and Amio D/Cd pending evaluation - may need to commence B fish under supervision With prolonged episode we should consider calling a heart alert per cardiology.
[2017-04-18] MEDS ORDERED: MoRPHine SULFATE 2 MG/ML CARP ONE (07:53)
[2017-04-18] MEDS: LISINOPRIL 20 MG TAB PO SCH (09:00)
[2017-04-18] MEDS: FLUTICASONE PROPIONATE NA SPR 16 GM BTL NAE SCH (09:00)
[2017-04-18] MEDS: MONTELUKAST SOD 10 MG TAB PO SCH (09:00)
[2017-04-18] MEDS: CEROVITE ADV FORMULA TAB PO SCH (09:00)
[2017-04-18] MEDS ORDERED: HYDROCHLOROTHIAZIDE 25 MG TAB PO SCH (09:00)
[2017-04-18] MEDS: ASCORBIC ACID 500 MG TAB PO SCH (09:00)
[2017-04-18] MEDS: ESCITALOPRAM OXALATE 10 MG TAB PO SCH (09:00)
[2017-04-18] MEDS ORDERED: KRILL OIL 500 MG PO SCH (09:00)
[2017-04-18] MEDS: CHOLECALCIFEROL 1000 INTER.UNIT TAB PO SCH (09:00)
--- NOTE | 2017-04-18 12:55 | ECHOCARDIOGRAM REPORT ---
*NOTICE TO RECEIVING DEMOCRAT AGENCY This information is strictly Confidential and protected under [place] law. [place] law prohibits you from making any further disclosure of this information unless further disclosure is expressly permitted by the written consent of the person to whom it pertains or is authorized by law. A general authorization for the release of medical or other information is not sufficient for this purpose. Hospital accepts no responsibility if the information is made available to any other person, INCLUDING THE PATIENT. Interpretation Summary * Name: JOSELO PERALTA Study Date: 04/18/2017 07:28 AM BP: 110/71 mmHg * Patient Location: C.2T\S\E222\S\1 HR: 55 * : 1965 (M/d/yyyy) Gender: Male Height: 75 in * Age: 51 yrs Ethnicity: CA Weight: 207 lb * Ordering Physician: Milly Bergman * Performed By: Maria Fernanda Verma * * Reason For Study: CHEST PAIN * BSA: 2.2 m2 * -- Conclusions -- * 1. Mildly dilated left ventricle with low-normal systolic function. EF 50-55%. No definite regional wall motion abnormalities. No left ventricular hypertrophy. Type 1 diastolic dysfunction. * 2. No significant valvular abnormalities. * 3. Normal estimated right ventricular systolic pressure; RVSP 22mmHg. * 4. Technically difficult study, enhanced with IV Definity. * 5. No prior study available for comparison. Procedure Details * A complete two-dimensional transthoracic echocardiogram was performed (2D, M-mode, Doppler and color flow Doppler). * A contrast injection of Definity was performed to improve assessment of LV function. * Contrast was injected into an intravenous site in the left arm. * One vial of Definity ultrasound contrast was diluted in normal saline to a total volume of 10 ml. A total of '3' ml of solution was administered during imaging. * Lot # [id number] of Definity utilized for procedure. * Expiration date 05/10. * The attending nurse who injected the contrast agent was WESTON RUIZ RN. Left Ventricle * Mildly dilated left ventricle with low-normal systolic function. EF 50-55%. No definite regional wall motion abnormalities. No left ventricular hypertrophy. Type 1 diastolic dysfunction. Right Ventricle * The right ventricle is normal in size and function. * The right ventricular systolic function is normal as assessed by tricuspid annular plane systolic excursion (TAPSE) (normal >1.5 cm). Atria * The left atrial size is normal. * Right atrial size is normal. * There is no evidence of atrial septal defect, but resolution does not allow assessment for a patent foramen ovale. Mitral Valve * The mitral valve is grossly normal. * There is no mitral valve stenosis. * There is trace mitral regurgitation. Tricuspid Valve * The tricuspid valve is not well visualized, but is grossly normal. * There is no tricuspid stenosis. * There is trace tricuspid regurgitation. Aortic Valve * The aortic valve is normal in structure and function. * The aortic valve is trileaflet. * No hemodynamically significant valvular aortic stenosis. * No aortic regurgitation is present. Pulmonic Valve * The pulmonary valve is inadequately visualized, but the Doppler data is adequate for interpretation. * There is no pulmonic valvular stenosis. * There is no significant pulmonary regurgitation. Great Vessels * The aortic root is normal size. Pericardium/Pleural * There is no pericardial effusion. Great Vessels * Normal inferior vena cava size and collapsability with sniff indicates a normal right atrial pressure of 3 mmHg MMode 2D Measurements and Calculations IVSd 0.97 cm IVSs 2.1 cm LVIDd 5.7 cm LVIDs 4.2 cm LVPWd 1.1 cm LVPWs 2.0 cm IVS/LVPW 0.89 FS 26.3 % EDV(Teich) 161.2 ml ESV(Teich) 79.2 ml EF(Teich) 50.9 % EDV(cubed) 187.0 ml ESV(cubed) 74.8 ml EF(cubed) 60.0 % % IVS thick 119.1 % % LVPW thick 86.9 % LV mass(C)d 237.5 grams LV mass(C)dI 106.7 grams/m\S\2 LV mass(C)s 429.6 grams LV mass(C)sI 193.0 grams/m\S\2 SV(Teich) 82.1 ml SI(Teich) 36.9 ml/m\S\2 SV(cubed) 112.2 ml SI(cubed) 50.4 ml/m\S\2 Ao root diam 3.9 cm Ao root area 12.2 cm\S\2 ACS 2.0 cm LA dimension 4.0 cm asc Aorta Diam 3.6 cm LA/Ao 1.0 LVOT diam 2.4 cm LVOT area 4.4 cm\S\2 LVAd ap4 43.1 cm\S\2 LVLd ap4 9.5 cm EDV(MOD-sp4) 160.2 ml EDV(sp4-el) 166.6 ml LVAs ap4 27.1 cm\S\2 LVLs ap4 8.3 cm ESV(MOD-sp4) 73.1 ml ESV(sp4-el) 75.1 ml EF(MOD-sp4) 54.4 % EF(sp4-el) 54.9 % LVAd ap2 45.6 cm\S\2 LVLd ap2 9.3 cm EDV(MOD-sp2) 189.0 ml EDV(sp2-el) 189.8 ml LVAs ap2 27.8 cm\S\2 LVLs ap2 7.9 cm ESV(MOD-sp2) 84.4 ml ESV(sp2-el) 83.5 ml EF(MOD-sp2) 55.3 % EF(sp2-el) 56.0 % LVLd %diff -4.86 % EDV(MOD-bp) 190.9 ml LVLs %diff -3.50 % ESV(MOD-bp) 79.6 ml EF(MOD-bp) 58.3 % SV(MOD-sp4) 87.1 ml SI(MOD-sp4) 39.1 ml/m\S\2 SV(MOD-sp2) 104.6 ml SI(MOD-sp2) 47.0 ml/m\S\2 SV(MOD-bp) 111.3 ml SI(MOD-bp) 50.0 ml/m\S\2 SV(sp4-el) 91.6 ml SI(sp4-el) 41.1 ml/m\S\2 SV(sp2-el) 106.3 ml SI(sp2-el) 47.7 ml/m\S\2 Doppler Measurements and Calculations MV E max woody 75.5 cm/sec MV A max woody 80.8 cm/sec MV E/A 0.93 MV dec time 0.28 sec Ao V2 max 105.8 cm/sec Ao max PG 4.5 mmHg Ao max PG (full) 1.7 mmHg RAMÓN(V,A) 3.5 cm\S\2 RAMÓN(V,D) 3.5 cm\S\2 LV V1 max PG 2.8 mmHg LV V1 max 83.8 cm/sec TV E max woody 42.3 cm/sec PA V2 max 66.4 cm/sec PA max PG 1.8 mmHg TR max woody 218.6 cm/sec RVSP(TR) 22.1 mmHg RAP systole 3.0 mmHg
--- NOTE | 2017-04-18 14:13 | CARDIOLOGY CONSULTATION ---
DATE OF CONSULTATION: 04/18/2017 TIME: 12:21 p.m. CONSULTING PHYSICIAN: Dr. Bergman. REASON FOR CONSULTATION: Ventricular tachycardia. PRIMARY HOSPITALIST: Dr. Rangel. PRIMARY CARE PHYSICIAN: Dr. Jhonny Damian. HISTORY OF PRESENT ILLNESS: Mr. Balbuena is a very pleasant 51-year-old gentleman with a history significant for hypertension, asthma requiring 3 hospitalizations in the past, probable sleep apnea who presented to [facility] with chest discomfort. For the past few weeks he has had left-sided chest tightness intermittently. He attributed it to anxiety. It would resolve if he lay down and relaxed. Symptoms lasted no more than 15 minutes. Yesterday after eating breakfast at approximately 10 a.m. while sitting at his desk at work, he developed left-sided chest discomfort described as a tightness. It did not necessarily radiate, but he did have another type of right-sided chest pain that felt more like a soreness and it was actually more painful than left-sided chest pain. He then developed left forearm pain. He walked to his car and felt quite lightheaded. At some point he had blurry vision intermittently over the next few hours. The chest pain was intermittently occurring, lasting no more than 15 minutes at most throughout the day. At approximately 1530 or 1600 p.m. the left-sided chest discomfort worsened. He noticed dizziness and a spinning sensation. At that point he drove himself to the Emergency Department for further evaluation. In the Emergency Department, he continued to have right-sided chest pain that has since resolved. The arm pain has also resolved. The intermittent left-sided chest tightness continues to occur intermittently. There is no specific trigger. Exertion does not appear to worsen it or cause the chest pain. He also felt mildly short of breath with his symptoms yesterday and at times had some diaphoresis, especially episodes overnight when he would wake up from sleep and found himself sweating. He still feels as though he is breathing shallow, but is not requiring oxygen supplementation. He has had intermittent lightheadedness while hospitalized when getting out of bed and walking to the restroom. He has been having intermittent lightheadedness as well as an outpatient. He states that he typically stays well hydrated. He does take hydrochlorothiazide and has been on it for quite some time as part of his antihypertensive regimen. He has intermittent palpitations for the past 2 weeks that last approximately 15 minutes. It felt as though his heart was beating very pronounced and fast. It did not necessarily correlate with his chest discomfort or other symptoms. In the Emergency Department, it was felt as though he was having ventricular tachycardia with 2 episodes of 11 beats in duration. He was started on amiodarone by the Emergency Department. I was contacted at that time by Dr. Bergman. The chest pain had resolved at that time. Overnight between 2 and 3 a.m., he was noted to have what appears to be idioventricular rhythm while on amiodarone. He was found to be diaphoretic with one of these episodes, but continued to have these episodes intermittently without diaphoresis or any symptoms. At that point, Dr. Lynn discontinued the amiodarone and contacted me via telephone. At that point, the patient was in sinus rhythm and asymptomatic. It was noted that his potassium was 2.9 upon presentation. It was recommended at that time to repeat stat labs and replete potassium as indicated, which Dr. Lynn did. Throughout the morning hours, he continued to have episodes of idioventricular arrhythmia with his last episode being shortly after 9:00 a.m. His heart rates in this rhythm were anywhere from the upper 50s to 70s, but tended to be in the lower range since started on amiodarone. Since shortly after 9 a.m. he has remained in sinus rhythm. He did not appear to be symptomatic with these episodes later this morning. It has been greater than 3 hours since his last episode. He reports having chest discomfort in November and states that he came to the Emergency Department. His troponin at that time was undetectable. During this hospitalization, he was placed on nitroglycerin paste and has since developed headache. This was discussed with nursing staff and she was asked to remove the nitroglycerin ointment to see if his headache improved. The headache has improved but continues to be present. He has had issues with migraines in the past. His states that he has sleep apnea but it has not yet been diagnosed formally. He has a sleep study pending in April. She states that she notices that he stops breathing at night. He also has had concerns recently for adrenal insufficiency. He has been seen by endocrinology who did not necessarily think that he had adrenal insufficiency. Endocrinology note was reviewed and it appears as though there is concern that perhaps his cortisol levels were lower than expected due to the fact that he sleeps only approximately 2 hours per night. Further workup and evaluation is pending. REVIEW OF SYSTEMS: As above and review of systems is otherwise negative. PAST MEDICAL HISTORY: 1. Asthma, requiring hospitalization x3 but no mechanical ventilation. 2. Hypertension. 3. Bronchitis. 4. Depression. 5. Obesity, status post weight loss. 6. Migraine. 7. Insomnia. 8. Probable sleep apnea per history but formal study pending. 9. Restless legs syndrome. 10. Diverticulosis. HOME MEDICATIONS: Include HCTZ 25 mg daily, lisinopril 20 mg daily, montelukast 10 mg daily, Krill oil, Lexapro 5 mg daily, Valium 10 mg p.o. at bedtime, Flexeril 10 mg p.o. at bedtime, ascorbic acid, calcium with magnesium, multivitamin, albuterol p.r.n., Advair Diskus p.r.n. ALLERGIES: INCLUDE AMOXICILLIN/PENICILLINS, CLAVULANIC ACID, ERYTHROMYCIN, TETRACYCLINE. INPATIENT MEDICATIONS: Include Flexeril, Valium, Lovenox 40 mg subQ at bedtime, Lexapro 5 mg daily, lisinopril 20 mg daily, Singulair 10 mg daily, nitroglycerin ointment being discontinued, potassium chloride has been given for supplementation, Advair Diskus. Amiodarone has been discontinued, but was being administered intravenously. SOCIAL HISTORY: Denies tobacco, alcohol or drug use. He is and has 3 children. One attends [employer] at the age of 21. One starts [employer] this fall at the age of 18 and their youngest son is 17 and finishing high school early to pursue collegiate football. 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 His , Nay, is a registered nurse and is present at the bedside. FAMILY HISTORY: There is documented history of hypertension, colon cancer and heart disease. PHYSICAL EXAMINATION: VITAL SIGNS: Temperature 36.6 degrees, heart rate 51 beats per minute, respiration rate 16, blood pressure 125/83 mmHg, oxygen saturation 97% on room air. GENERAL: No acute distress. He is alert and oriented. HEENT: Anicteric sclerae. NECK: No appreciable JVD. No bruits. Normal carotid upstrokes bilaterally. CARDIAC EXAM: No ventricular heave. PMI nondisplaced. Regular, normal S1, S2. No audible murmurs, rubs or gallops. LUNGS: Clear to auscultation bilaterally without wheezes, rales or rhonchi. ABDOMEN: Soft, nondistended. Mild left lower quadrant tenderness but no rebound tenderness. No palpable mass. No bruits. Normoactive bowel sounds. EXTREMITIES: No cyanosis or edema. 2+ radial pulses bilaterally. 2+ dorsalis pedis pulses bilaterally. No palpable cords. CHEST: Tenderness in the left chest reproducing his chest tightness. No palpable masses. No rash. PSYCHIATRIC: Affect appears appropriate. DATA: Telemetry was reviewed in detail. He appeared to have accelerated idioventricular arrhythmia intermittently upon presentation. There was a ventricular triplet. He intermittently had what appears to be accelerated idioventricular arrhythmia throughout the night but predominantly sinus rhythm. The episodes were often brief, but sometimes approximately 30 seconds. His last episode happened shortly after 9:00 a.m. this morning. The frequency appears to have improved with potassium supplementation. ECGs personally reviewed. ECG 04/17/2017 at 16:11 sinus rhythm with frequent PVCs. Possible inferior infarct. Repeat ECG at 04/18/2017 at 01:45 a.m., sinus rhythm at 64 beats per minute with PVC. Possible inferior infarct. ECG 04/18/2017 at 6:29 a.m., sinus bradycardia at 53 beats per minute. Cannot rule out inferior infarct. PVCs are no longer present. LABORATORY DATA: White blood cell count 6.35, hemoglobin 14.8, platelets 213. Sodium 143, potassium 3.5, BUN 21, creatinine 1.1, troponin undetectable x3. Initial potassium was 2.9, at 2:46 a.m. it was 3.2. Chest x-ray image personally reviewed. No acute cardiopulmonary findings per radiology. On personal review, no infiltrate or evidence of CHF suggested. Echocardiogram performed 04/18/2017 demonstrated mildly dilated left ventricle with low normal systolic function. EF 50%-55%. No definite regional wall motion abnormalities. No LVH. Type 1 diastolic dysfunction. No significant valvular abnormalities. Estimated RVSP 22 mmHg. ASSESSMENT AND PLAN: 1. Accelerated idioventricular rhythm: It appears as though in the Emergency Department, he had accelerated idioventricular rhythm rather than ventricular tachycardia other than a ventricular triplet. He continued to have these episodes overnight. This could be related to his hypokalemia. It appears as though the frequency has improved with potassium supplementation and in fact it has been over 3 hours and approaching 4 hours since his last episode now that his potassium is within normal limits. Would aim to keep his potassium between 4 and 4.5 if possible. Try to catch an episode on 12-lead ECG, if possible. Also attempt to see if symptoms correlate with arrhythmia because at this time it does not appear as though there is any correlation with his symptoms and his idioventricular rhythm. No specific antiarrhythmic therapy recommended at this time. Agree with the discontinuation of amiodarone. 2. Chest pain: His chest pain is atypical. It is reproducible upon exam and it is not exertional. His troponins are undetectable x3. We discussed ischemic evaluation. Recommend stress echo, potentially tomorrow if his arrhythmia issues subside. No urgent indication for cardiac catheterization. 3. Hypokalemia: HCTZ could be playing a role. HCTZ will be discontinued at this time. Continue supplementation with a goal of 4 to 4.5 if possible. This is being performed by the primary service. 4. Hypertension: Blood pressure has been adequately controlled. HCTZ will be discontinued as above. He has symptoms concerning for orthostatic hypotension. 5. Lightheadedness: Concerning for orthostatic hypotension as the symptoms occur with change in position. Nursing staff was asked to perform orthostatic vitals. HCTZ discontinued. Remain well hydrated. 6. Palpitations: He did not have palpitations during his idioventricular rhythm here. Continue to monitor to see if any other arrhythmia occurs and if there is any correlation of symptoms. 7. Sleep apnea: He likely has sleep apnea based upon his 's observation at home. Sleep study is pending. Recommend treatment if appropriate. 8. Disposition: Plan of care has been discussed with Dr. Rangel of the primary hospitalist service. Cardiology will continue to follow. Approximately 120 minutes time spent reviewing studies, chart, labs, telemetry, ECGs, and coordinating care. Greater than 50% of that time spent counseling patient at the bedside with his and coordinating care. Thank for allowing me to participate in the care of Mr. Balbuena.
[2017-04-18] MEDS: ENOXAPARIN 40 MG/0.4 ML SYR SC SCH (21:27)
[2017-04-18] MEDS: CYCLOBENZAPRINE HCL 10 MG TAB PO SCH (21:27)
[2017-04-18] MEDS: DIAZEPAM 5MG TAB PO SCH (21:27)
[2017-04-19 04:13] VITALS: BP 125/80; PULSE 56; TEMP 36.5; O2SAT 96
--- NOTE | 2017-04-19 05:26 | Progress Note ---
Subjective Date of Service: late entry for visit April 18, 2017. Subjective Pt evaluation today including: conversation w/ patient, physical exam, chart review, lab review, review of studies (echo), conversation w/ talent development consultant ( cardiology), review of inpatient medication list Pain: mild left chest wall discomfort PO Intake: normal Voiding: no voiding problems, no incontinence tele reviewed with cardiology had wide complex rhythm several times overnight rates were <100; possibly junctional rhythm he feels better today denies any sob or dyspnea on exertion at this time denies recent travel, personal or family h/o PE/DVT Problem List Medical Problems: (1) Asthma Status: Chronic (2) Benign hypertension Status: Chronic (3) Depression Status: Chronic (4) Migraines Status: Chronic (5) Ventricular tachycardia, non-sustained Status: Acute Review of Systems Constitutional: No fever Respiratory: No cough, No sputum Cardiac: + see HPI, No orthopnea Abdomen: No pain Objective Vital Signs Date Time Temp Pulse Resp B/P Pulse Ox O2 Delivery O2 Flow Rate FiO2 04/19/17 04:13 36.5 56 18 125/80 96 Room Air 04/19/17 04:00 Room Air 04/19/17 00:01 Room Air 04/18/17 23:39 36.8 55 18 117/76 95 Room Air 04/18/17 20:00 Room Air 04/18/17 19:22 36.7 66 18 135/69 96 Room Air 04/18/17 16:00 Room Air 04/18/17 15:52 36.6 66 18 130/85 97 Room Air 04/18/17 13:22 80 18 139/82 96 Room Air 128/86 132/85 04/18/17 12:00 Room Air 04/18/17 11:43 36.6 51 16 125/83 97 Room Air 04/18/17 08:00 Room Air 04/18/17 08:00 36.7 57 18 125/83 97 Room Air Physical Exam General Appearance: no apparent distress ENT: pharynx normal Neck: no JVD Respiratory/Chest: lungs clear, no respiratory distress, no accessory muscle use Cardiovascular: regular rate, rhythm, no edema, no gallop, no JVD, no murmur Abdomen: normal bowel sounds, non tender, soft, no organomegaly Extremities: no pedal edema Neurologic/Psychiatric: alert, oriented x 3 Skin: no rash Laboratory Results Last 24 Hours Test 04/18/17 05:22 Sodium Level 143 mmol/L Potassium Level 3.5 mmol/L Chloride Level 107 mmol/L Carbon Dioxide Level 32 mmol/L Anion Gap 4.0 mmol/L Blood Urea Nitrogen 21 mg/dl Creatinine 1.10 mg/dl Est Creatinine Clear Calc Drug Dose 107.7 ml/min Estimated GFR () 90.9 Estimated GFR (Non- 78.4 BUN/Creatinine Ratio 19.5 Random Glucose 90 mg/dl Calcium Level 8.0 mg/dl Troponin I < 0.015 ng/ml Assessment and Plan 51yo male - 1. chest pain - ACS ruled out. Unclear if the dysrhythmia seen on telemetry is a cause of his symptoms or is completely unrelated. Agree with Dr. Bedolla to simply observe again overnight on telemetry. 2. wide complex arrhythmia - may have been due to hypokalemia. Replete K. Observe. Amiodarone stopped. 3. hypokalemia - 2nd to HCTZ use. Replete BMP am HCTZ has been stopped. 4. asthma - not in exacerbation. 5. dyspnea - no signs of CHF, pneumonia, etc. Low threshold to r/o VTE if his symptoms persist. Uncertain if the dyspnea is primarily cardiac driven; will need to observe if the wide complex rhythm seen is correlated with his symptoms. 6. HTN - controlled. 7. DVT proph - lovenox daily. appreciate cardiology evaluation Continued [facility] stay due to: multiple IV medications needed Discharge planning: home
[2017-04-19] MEDS: ESCITALOPRAM OXALATE 10 MG TAB PO SCH (07:32)
[2017-04-19] MEDS: CEROVITE ADV FORMULA TAB PO SCH (07:32)
[2017-04-19] MEDS: LISINOPRIL 20 MG TAB PO SCH (07:32)
[2017-04-19] MEDS: MONTELUKAST SOD 10 MG TAB PO SCH (07:32)
[2017-04-19] MEDS: CHOLECALCIFEROL 1000 INTER.UNIT TAB PO SCH (07:33)
[2017-04-19] MEDS: ASCORBIC ACID 500 MG TAB PO SCH (07:33)
[2017-04-19] MEDS: FLUTICASONE PROPIONATE NA SPR 16 GM BTL NAE SCH (07:34)
[2017-04-19 07:45] VITALS: BP 127/82; PULSE 58; TEMP 36.4; O2SAT 94
[2017-04-19 08:19] LABS: BUN/CREATININE RATIO 14.4 (10-20); CREATININE 1.1 mg/dl (0.60-1.40); POTASSIUM 3.6 mmol/L (3.5-5.1)
[2017-04-19 08:26] LABS: CALCIUM 8.2 mg/dl (8.5-10.1)
[2017-04-19] MEDS ORDERED: POTASSIUM CHLORIDE 10 MEQ TABCR PO ONE (09:00)
[2017-04-19] MEDS ORDERED: POTASSIUM CHLORIDE 10 MEQ TABCR PO STA (10:16)
[2017-04-19 11:06] VITALS: BP 145/83; PULSE 85; TEMP 36.7; O2SAT 97
--- NOTE | 2017-04-19 11:22 | CARDIOLOGY PROGRESS NOTE ---
DATE: 04/19/2017 TIME: 10:11 a.m. SUBJECTIVE: Mr. Balbuena had an episode of chest discomfort yesterday, but overall the frequency has significantly reduced and he has not had any further chest pain today. He has not had any further accelerated idioventricular rhythm since yesterday shortly after 09:00 a.m. His potassium has remained normal. His orthostatic symptoms continued yesterday, but he drank a lot of water at the urging of his . He had orthostatic vital signs checked yesterday, which were not significantly abnormal. His orthostatic symptoms have not been present today. He feels much better overall. 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 He admits that is the most physical activity that he has done a while since having his left shoulder surgery several months ago. He denies syncope or palpitations. OBJECTIVE: VITAL SIGNS: Temperature 36.4 degrees, heart rate 58 beats per minute, respiratory rate 18, blood pressure 127/82 mmHg and oxygen saturation 94% on room air. Weight 112.2 kg. GENERAL: No acute distress. He is alert. NECK: No appreciable JVD. CARDIAC EXAM: No ventricular heave, regular, normal S1 and S2. No murmurs, rubs or gallops. LUNGS: Clear to auscultation bilaterally without wheezes, rales or rhonchi. ABDOMEN: Soft, nontender, and nondistended. Normoactive bowel sounds. EXTREMITIES: No cyanosis or edema. PSYCHIATRIC: Affect appears appropriate. MEDICATIONS: Include Lovenox 40 mg subQ at bedtime, lisinopril 20 mg daily, and Singulair 10 mg daily. Telemetry personally reviewed. No further arrhythmia. There are occasional PVCs, otherwise sinus rhythm. LABORATORY DATA: Sodium 141, potassium 3.6, BUN 16, and creatinine 1.1. Orthostatic vital signs performed yesterday, supine blood pressure 139/82, sitting 132/85, and standing 128/86. ASSESSMENT AND PLAN: 1. Accelerated idioventricular rhythm: Likely related to his hypokalemia upon presentation. Now that his potassium has been replaced and he has not had any further arrhythmia for greater than 24 hours. Recommend keeping potassium near 4. Would consider daily potassium supplementation and close followup with his PCP from a potassium standpoint. A 30-day event monitor could also be arranged as an outpatient to follow more penitentiary to see if he has further arrhythmia issues. No specific therapy recommended at this time from an antiarrhythmic standpoint. 2. Chest pain: Chest pain was atypical and was reproducible upon exam. Given his overall presentation, however, a stress echo will be ordered to be done today. 3. Hypokalemia: HCTZ was discontinued yesterday. Consider low dose potassium supplementation upon discharge and close followup with his PCP to monitor his potassium levels. 4. Hypertension: Blood pressure adequately controlled. 5. Lightheadedness: This has resolved today. He consumed more fluid yesterday and HCTZ has been discontinued. Symptoms were concerning for orthostatic hypotension; however, he was not significantly orthostatic yesterday. Remains well hydrated. 6. Palpitations: He did not have any palpitations while hospitalized. A event monitor as discussed above. 7. Sleep apnea: Sleep study is pending. 8. Disposition: If stress echo is unremarkable, no further cardiac evaluation recommended as an inpatient. Dr. Rangel of the primary hospitalist service will be notified of the stress echo findings.
[2017-04-19 12:15] VITALS: BP 152/69; PULSE 59; TEMP 36.5; O2SAT 99
[2017-04-19 12:35] VITALS: BP_SYST 121; BP_SYST 126; BP_SYST 130; BP_DIAS 79; BP_DIAS 80; BP_DIAS 81; PULSE 83
[2017-04-19] MEDS ORDERED: MCRK20 PO (15:09)
[2017-04-19 15:20] VITALS: BP 126/81; PULSE 83; TEMP 36.5; O2SAT 99
--- NOTE | 2017-04-19 15:23 | Discharge Instructions ---
Discharge Instructions Date of Service April 19, 2017. 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 . Instructions / Follow-Up Instructions / Follow-Up From Dr. Rangel - 1. Starting tomorrow on 04/20/17 recommend a potassium supplement 20meq once daily. Please have Dr. Damian recheck your potassium level at the time of your follow- up appointment. 2. Please STOP your hydrochlorothiazide. 3. Several years ago your testosterone level was low (or low-normal). Please speak with Dr. Damian about whether a recent testosterone level was drawn. 4. You will be receiving a 30-day monitor at your house within the next week. It will be mailed to you. It will contain instructions on its use. Dr. Bedolla will ultimately share the results of that test with you. 5. Keep your sleep study date. 6. If you continue with dizzy spells, and your cardiac work-up is normal, ask Dr. Damian about a referral to a neurologist. 7. Follow-up appointments - * see Dr. Pacheco in the next 1-2 weeks * see Dr. Damian THIS WEEK 8. Return to [facility] if - * you experience palpitations/racing heart for a prolonged period of time * you have recurrent chest pain * you have worsening shortness of breath * you have dizziness that interferes with your ability to walk or do normal activities Current Hospital Diet Patient's current hospital diet: Regular Diet Discharge Diet Recommended Diet: Regular Diet Procedures Procedures Performed: 1. echocardiogram - normal valves, normal structure and function; ejection fraction 55% 2. exercise stress test - normal Pending Studies Studies pending at discharge: yes List of pending studies: vitamin B12 level Medical Emergencies . Who to Call and When: Medical Emergencies: If at any time you feel your situation is an emergency, please call 911 immediately. . Non-Emergent Contact Non-Emergency issues call your: Primary Care Provider Call Non-Emergent contact if: temperature is above 100.5, your pain is unusual for you, your pain is concerning you, you have any medication questions . . "Provider Documentation" section prepared by Torsten Rangel. . VTE Core Measure Inpt VTE Proph given/why not?: Enoxaparin (Lovenox)SQ
--- NOTE | 2017-04-19 18:16 | EXERCISE STRESS ECHO ---
*NOTICE TO RECEIVING CONSTITUTION PARTY AGENCY This information is strictly Confidential and protected under [place] law. [place] law prohibits you from making any further disclosure of this information unless further disclosure is expressly permitted by the written consent of the person to whom it pertains or is authorized by law. A general authorization for the release of medical or other information is not sufficient for this purpose. Hospital accepts no responsibility if the information is made available to any other person, INCLUDING THE PATIENT. Interpretation Summary * Name: JOSELO PERALTA Study Date: 04/19/2017 09:54 AM BP: 118/93 mmHg * Patient Location: C.2T\S\E222\S\1 HR: 50 * : 1965 (M/d/yyyy) Gender: Male Height: 75 in * Age: 51 yrs Ethnicity: [place] Weight: 246 lb * Ordering Physician: Jl Bedolla MD * Performed By: Maria Fernanda Verma * * Reason For Study: CHEST PAIN * BSA: 2.4 m2 * -- Conclusions -- * Stress Echo: * 1. Negative stress echo for ischemia at 101% MPHR. * 2. Negative exercise ECG for ischemia at 101% MPHR. * 3. No arrhythmia. * 4. No chest pain reported. * 5. Mildly hypertensive response to exercise. * 6. Good exercise tolerance. * 7. Technically difficult study, enhanced with IV Definity. Procedure Details * A contrast injection of Definity was performed to improve assessment of LV function. * Contrast was injected into an intravenous site in the left arm. * One vial of Definity ultrasound contrast was diluted in normal saline to a total volume of 10 ml. A total of '4.5' ml of solution was administered during imaging. * Lot # [id number] of Definity utilized for procedure. * Expiration date 05/10. Left Ventricle * The left ventricle is mildly dilated. * Left ventricular systolic function is low-normal at rest and becomes more hyperdynamic following exercise. * The left ventricular ejection fraction increases normally with stress. The left ventricular end-systolic cavity size reduces post-stress (normal response). The left ventricular wall motion with stress is normal. * Resting wall motion: Normal. Stress wall motion: Appropriate increase in Left ventricular systolic function and decrease in cavity size. No stress induced segmental wall motion abnormalities. Stress Parameters * Sinus bradycardia at 54 bpm. * Stress ECG: No ST changes. No arrhythmias. * No arrhythmia were noted with stress. * The stress portion of this study was personally supervised by the undersigned interpreting physician. * Rest heart rate was '50' BPM. * Rest blood pressure was '118/93' * Maximum heart rate achieved was 173 bpm. * Maximum heart rate was 101 % of maximum age-predicted heart rate. * Maximum blood pressure was '205/59' * Total exercise time was '9:42' * Maximum exercise MET level achieved was '11.1' METS * Maximum treadmill speed was '4.10' miles per hour. * Maximum treadmill elevation was '16.00'% grade. * Exercise was terminated due to 'fatigue' * Exercise-induced hypertension. MMode 2D Measurements and Calculations LVIDd 5.5 cm LVIDs 4.0 cm LVPWd 0.98 cm FS 28.3 % EDV(Teich) 148.2 ml ESV(Teich) 68.0 ml EF(Teich) 54.1 % EDV(cubed) 167.6 ml ESV(cubed) 61.8 ml EF(cubed) 63.1 % SV(Teich) 80.2 ml SI(Teich) 33.5 ml/m\S\2 SV(cubed) 105.8 ml SI(cubed) 44.2 ml/m\S\2 LVAd ap2 40.2 cm\S\2 LVLd ap2 8.6 cm EDV(MOD-sp2) 155.7 ml EDV(sp2-el) 160.0 ml LVAs ap2 26.9 cm\S\2 LVLs ap2 8.0 cm ESV(MOD-sp2) 75.9 ml ESV(sp2-el) 77.3 ml EF(MOD-sp2) 51.2 % EF(sp2-el) 51.7 % SV(MOD-sp2) 79.7 ml SI(MOD-sp2) 33.3 ml/m\S\2 SV(sp2-el) 82.7 ml SI(sp2-el) 34.5 ml/m\S\2
[2017-04-20] MEDS ORDERED: POTASSIUM CHLORIDE 20 MEQ TABCR PO SCH (09:00)
--- NOTE | 2017-04-20 22:03 | Discharge Summary ---
Discharge Summary Date of Service April 20, 2017. Discharge Summary Admission Date: April 17, 2017 at 19:01 Discharge Date: April 19, 2017 Discharge Disposition: Home Principal Diagnosis: wide-complex idioventricular rhythm 2nd to hypokalemia Problems/Secondary Diagnoses: 1. Asthma. 2. Hypertension. 3. Depression. 4. Obesity, status post weight loss. 5. Chronic Migraines. 6. Insomnia. 7. concern of obstructive sleep apnea. 8. Restless legs syndrome. 9. Diverticulosis. 10. Dizziness, uncertain etiology. Immunizations: Have You Had Influenza Vaccine: Yes Influenza Vaccine Date: Oct 26, 2006 History of Tetanus Vaccine?: Yes History of Pneumococcal: Yes Pneumococcal Date: March 26, 2005 History of Hepatitis B Vaccine: Unknown Procedures: 1. echocardiogram: * -- Conclusions -- * 1. Mildly dilated left ventricle with low-normal systolic function. EF 50-55% . No definite regional wall motion abnormalities. No left ventricular hypertrophy. Type 1 diastolic dysfunction. * 2. No significant valvular abnormalities. * 3. Normal estimated right ventricular systolic pressure; RVSP 22mmHg. * 4. Technically difficult study, enhanced with IV Definity. * 5. No prior study available for comparison. 2. stress echocardiogram: * 1. Negative stress echo for ischemia at 101% MPHR. * 2. Negative exercise ECG for ischemia at 101% MPHR. * 3. No arrhythmia. * 4. No chest pain reported. * 5. Mildly hypertensive response to exercise. * 6. Good exercise tolerance. * 7. Technically difficult study, enhanced with IV Definity. Consultations: cardiology - Jl Bedolla MD Medication Reconciliation New Medications: Potassium Chloride (Klor-Con M20) 20 Meq Tabcr 20 MEQ PO QAM, #30 TAB 0 Refills Continued Medications: Albuterol Hfa (Ventolin Hfa) 200 Puffs/85526 Mcg Aers 2-4 PUFFS INH Q6H PRN for SOB/Wheezing Ascorbic Acid (Ascorbic Acid) 500 Mg Tab 500 MG PO QAM, TAB Calcium W/ Magnesium (Calcium Magnesium 750) Unknown Strength Tab 2 TABS PO HS Cholecalciferol (Vitamin D3) 2,000 Unit Cap 1 CAP PO QAM Cyclobenzaprine Hcl (Flexeril) 10 Mg Tab 10 MG PO HS Diazepam (Valium) 10 Mg Tab 10 MG PO HS DO NOT DRIVE WITH MEDICATION Echinacea (Echinacea) 125 Mg Tab 2 TAB PO DAILY PRN for PRN Escitalopram Oxalate (Escitalopram Oxalate) 10 Mg Tab 5 MG PO QAM Fluticasone Prop/Salmeterol (Advair Diskus 500/50 60 Dose) 1 Ea Aerp 1 PUFF INH BID PRN for PRN Fluticasone Propionate (Fluticasone Propionate) 120 Sprays/6000 Mcg Inha 2 SPRAYS TG QAM Krill Oil (Krill Oil 500 mg) 1 Cap Cap 500 MG PO QAM Lisinopril (Prinivil) 20 Mg Tab 20 MG PO QAM Montelukast Sod (Montelukast Sodium) 10 Mg Tab 10 MG PO QAM Multivitamins/Minerals (Mvi With Minerals) Tab 1 TAB PO QAM Discontinued Medications: Hydrochlorothiazide (Hydrochlorothiazide) 25 Mg Tab 25 MG PO QAM Referrals At Discharge Follow up Referrals: Technical Service Specialist Referral - Within 1-2 Weeks with Jl Bedolla MD Discharge Exam Physical Exam: General Appearance: WD/WN, no apparent distress ENT: pharynx normal Neck: no JVD Respiratory/Chest: lungs clear, normal breath sounds, no respiratory distress, no accessory muscle use Cardiovascular: regular rate, rhythm, no gallop, no JVD, no murmur, normal peripheral pulses Abdomen / GI: normal bowel sounds, non tender, soft, no organomegaly Extremities: no pedal edema Neurologic/Psychiatric: processor helper II-XII nml as tested, no motor/sensory deficits , alert, normal mood/affect, normal reflexes, oriented x 3, + pertinent finding (finger/nose/finger maneuver w/o dysmetria; heel-man maneuver without ataxia ) Skin: no rash Lymphatic: no adenopathy (cervical ) Hospital Course HISTORY OF PRESENT ILLNESS: 51yo male with history of asthma and HTN who presented with multiple complaints including chest pain. Patient reported he had been having chest pain on and off for about 2 weeks. It was mostly left-sided but moved to the right on occasion as well. Episodes would last 30-60 minutes and resolve spontaneously. On the AM of admission the chest pain was more intense and did not resolve. He reported some shortness of breath. Prior to the last two weeks his only chest pain was asthma related and not similar to this at all. Patient stated the last few weeks at work had been stressful for him. He also reported occasional palpitations over the last two weeks. Patient denied fever, abdominal pain, LE pain or swelling, nausea, emesis. Patient's EKG showed PVCs at presentation. Then, while awaiting admission in the ER, he was noted to have an 11-beat run of a wide complex rhythm, and then had a second run of wide-complex rhythm. These resolved spontaneously. He was subsequently started on amiodarone infusion. HOSPITAL COURSE: After admission to the telemetry unit the patient continued to have brief episodes of wide-complex idioventricular rhythm. Nonsustained ventricular tachycardia was NOT seen. The idioventricular rhythm was felt to be due to his hypokalemia as the episodes fully resolved after his potassium level normalized. Following normalization of his potassium he had no further dysrhythmia for the remainder of his stay. Serial cardiac enzymes were negative while hospitalized. Sed rate, b12, folate, TSH, and lyme's were all normal. He was seen in consult by Dr. Jl Bedolla, [facility] Cardiology. He felt that the wide-complex rhythm was due to the hypokalemia. With that said, in light of his multiple cardiopulmonary symptoms, echocardiogram and stress test were both recommended. Echocardiogram was largely normal except for low-normal EF of 50-55%. Stress echocardiogram was NEGATIVE for ischemia. It was unclear if the patient's symptoms of dizziness, chest pain, dyspnea, etc were due to the idioventricular rhythm. His symptoms did not appear to correlate with his telemetry findings while here. To further investigate this issue he will be set up with a 30-day event monitor after discharge. In light of the patient's significant hypokalemia and complaint of dizziness his HCTZ was discontinued. Orthostatic BPs during his stay were negative. HTN control was excellent OFF the HCTZ while hospitalized. For the reasons above it was recommended he remain off the HCTZ. It was also recommended he take a daily potassium supplement to keep his potassium as close as possible to 4. Lastly, the etiology of the patient's chronic dizziness was unclear. He was advised to follow-up with Dr. Bedolla in the cardiology clinic. If a cardiac cause is not found suggest neurology consultation. He was also encouraged to follow-through with his outpatient sleep study given his significant, daily fatigue. Total Time Spent: Greater than 30 minutes This includes examination of the patient, discharge planning, medication reconciliation, and communication with other providers. Discharge Instructions Please refer to the electronic Patient Visit Report (Discharge Instructions) for additional information. Follow-Up 1. see Dr. Damian within 5-[address] Bedolla within 2 weeks 3. outpatient 30-day event monitor to be arranged by [facility] cardiology Additional Copies To Jhonny Damian M.D.; Jl Bedolla MD
== END 2017-04-19 15:55 | disposition home or self-care (01) | DRG 641 ==
LOC: ENRESERVDT → ENRESERVTM → C.EDB 16:04 → C.2T 19:01
PROVIDERS: ADMIT Family Medicine; ATTEND Internal Medicine
DX: E87.6 Hypokalemia (principal); I44.2 Atrioventricular block, complete; T50.2X5A Adverse effect of carbonic-anhydrase inhibitors, benzothiadiazides and other diuretics, initial encounter; R42 Dizziness and giddiness; R07.89 Other chest pain; R06.00 Dyspnea, unspecified; J45.909 Unspecified asthma, uncomplicated; I10 Essential (primary) hypertension; F32.9 Major depressive disorder, single episode, unspecified; G43.909 Migraine, unspecified, not intractable, without status migrainosus; G47.00 Insomnia, unspecified; E66.9 Obesity, unspecified; Z51.81 Encounter for therapeutic drug level monitoring; Z79.899 Other long term (current) drug therapy; Z82.49 Family history of ischemic heart disease and other diseases of the circulatory system; Z68.30 Body mass index [BMI] 30.0-30.9, adult

== ENCOUNTER → 2017-06-29 | Outpatient (CLI) | payer BC ==
[~2017-06-29] MED LIST changes: -HYDR25TA5 PO; +KRIL1CAP24 PO; +MCRK20 PO; -MELA1TAB5 PO
[2017-06-29 10:08] LABS: BLOOD UREA NITROGEN 19 mg/dl (7-18); BUN/CREATININE RATIO 16.1 (10-20); CALCIUM 9.4 mg/dl (8.5-10.1); CARBON DIOXIDE 29 mmol/L (21-32); CHLORIDE 106 mmol/L (98-107); GLUCOSE 101 mg/dl (70-99); MAGNESIUM 2.2 mg/dl (1.8-2.4); POTASSIUM 3.6 mmol/L (3.5-5.1); SODIUM 141 mmol/L (136-145)
== END | disposition home or self-care (01) ==
LOC: C.LAB1850 08:54
PROVIDERS: ATTEND Internal Medicine Cardiovascular Disease
DX: I47.2 Ventricular tachycardia (principal)

== ENCOUNTER 2017-06-30 00:37 | Emergency (ER) | payer BC ==
[~2017-06-30] VITALS: Ht 190.5 cm; Wt 109.8 kg
[2017-06-30 00:39] VITALS: TEMP 36.7; Ht 190.5 cm; Wt 109.8 kg
[2017-06-30] MEDS ORDERED: SODIUM CHLORIDE 0.9% 1000ML 1,000 ML IV STA ×2 (00:59→02:04)
[2017-06-30] MEDS ORDERED: METOCLOPRAMIDE HCL INJ 5 MG/ML 2 ML VIAL IV STA (00:59)
[2017-06-30] MEDS ORDERED: KETOROLAC TROMETHAMINE 30 MG/ML VIAL IV STA (00:59)
[2017-06-30] MEDS ORDERED: DiphenhydrAMINE HCL 50 MG/ML VIAL IV STA (00:59)
--- NOTE | 2017-06-30 01:04 | EMERGENCY ROOM VISIT NOTE ---
History Report prepared by Alexanderibe: Keyla Lobato Under the Supervision of: Dr. Miguel A Temple M.D. First contact with patient: 00:54 Chief Complaint: HEADACHE Stated Complaint: MIGRAINE History of Present Illness The patient is a 51 year old male who presents to the Emergency Room with complaints of a worsening headache since 1729 last evening. He rates his discomfort as a 9/10 in severity and states it is mostly left sided. He notes "the pain got unbearable about an hour ago", so he decided to come to the ED. He did become nauseous and vomited once at home. He admits to a history of migraine headaches and states he has been experiencing them more frequently over the past 1 week. Before this past week, he had not had a migraine for approximately 1 year. The patient took Excedrin migraine around 2099 but states it has only provided minimal relief. He has been trying to keep hydrated and states "I drank a lot of water today". He denies any changes to his vision. He complains of some congestion last night, but states Mucinex provided good relief. He denies any recent fevers, chills, back pain, abdominal pain, diarrhea or urinary symptoms. Source of History: patient Onset: 1729 yesterday Position: head Symptom Intensity: 9/10 Timing: worsening Modifying Factors (Relieving): other (Excedrin migraine) Associated Symptoms: + nausea, + vomiting, No fevers, No chills, No abdominal pain, No back pain, No diarrhea, No urinary symptoms Review of Systems See HPI for pertinent positives and negatives. A total of ten systems were reviewed and were otherwise negative. Past Medical & Surgical Medical Problems: (1) Asthma (2) Benign hypertension (3) Bronchitis (4) Chest pain (5) Depression (6) Migraines (7) Pneumonia (8) Vomiting Family History FH: cancer FHx: heart disease Hypertension Social History Smoking Status: Never Smoker Alcohol Use: occasionally Drug Use: none Marital Status: Housing Status: lives with family Occupation Status: employed Current/Historical Medications Scheduled Ascorbic Acid (Ascorbic Acid), 500 MG PO QAM Calcium W/ Magnesium (Calcium Magnesium 750), 2 TABS PO HS Cholecalciferol (Vitamin D3), 1 CAP PO QAM Cyclobenzaprine Hcl (Flexeril), 10 MG PO HS Diazepam (Valium), 10 MG PO HS Escitalopram Oxalate (Escitalopram Oxalate), 5 MG PO QAM Fluticasone Propionate (Fluticasone Propionate), 2 SPRAYS TG QAM Krill Oil (Krill Oil 500 mg), 500 MG PO QAM Lisinopril (Prinivil), 20 MG PO QAM Montelukast Sod (Montelukast Sodium), 10 MG PO QAM Multivitamins/Minerals (Mvi With Minerals), 1 TAB PO BID Potassium Chloride (Klor-Con M20), 20 MEQ PO QAM Scheduled PRN Albuterol Hfa (Ventolin Hfa), 2-4 PUFFS INH Q6H PRN for SOB/Wheezing Echinacea (Echinacea), 2 TAB PO DAILY PRN for PRN Fluticasone Prop/Salmeterol (Advair Diskus 500/50 60 Dose), 1 PUFF INH BID PRN for PRN Allergies Coded Allergies: Amoxicillin (Verified Allergy, Unknown, RX AN , 06/30/17) Clavulanic Acid (Verified Allergy, Unknown, RX AN , 06/30/17) Erythromycin (Verified Allergy, Unknown, REACTION TO PCN AND AUGMENTIN, 06/30/17) Penicillins (Verified Allergy, Unknown, REACTION AN - UNKNOWN, ) Tetracyclines (Verified Allergy, Unknown, VOMITING AND RASH, 06/30/17) Physical Exam Vital Signs Date Time Temp Pulse Resp B/P (MAP) Pulse Ox O2 Delivery O2 Flow Rate FiO2 06/30/17 03:13 64 16 154/77 97 06/30/17 02:01 66 16 149/101 95 Room Air 06/30/17 00:39 36.7 70 18 143/97 96 Room Air Physical Exam GENERAL: Awake, alert, well-appearing, in no distress HENT: Normocephalic, atraumatic. Oropharynx unremarkable. Dry mucous membranes. Photophobia. EYES: Normal conjunctiva. Sclera non-icteric. NECK: Supple. No nuchal rigidity. FROM. No JVD. RESPIRATORY: Clear to auscultation. CARDIAC: Regular rate, normal rhythm. Extremities warm and well perfused. Pulses equal. ABDOMEN: Soft, non-distended. No tenderness to palpation. No rebound or guarding. No masses. RECTAL: Deferred. MUSCULOSKELETAL: Chest examination reveals no tenderness. The back is symmetrical on inspection without obvious abnormality. There is no CVA tenderness to palpation. No joint edema. LOWER EXTREMITIES: Calves are equal size bilaterally and non-tender. No edema. No discoloration. NEURO: Normal sensorium. No sensory or motor deficits noted. Cerebellar intact. SKIN: No rash or jaundice noted. Medical Decision & Procedures Medications Administered Medications (Trade) Dose Ordered Sig/North Route Start Time Stop Time Status Last Admin Dose Admin Sodium Chloride 1,000 ml @ 999 mls/hr Q1H1M STAT IV 06/30/17 00:59 06/30/17 01:59 DC 06/30/17 01:19 999 MLS/HR Metoclopramide HCl (Reglan Inj) 10 mg NOW STAT IV 06/30/17 00:59 06/30/17 01:01 DC 06/30/17 01:22 10 MG Diphenhydramine HCl (Benadryl Inj) 25 mg NOW STAT IV 06/30/17 00:59 06/30/17 01:01 DC 06/30/17 01:21 25 MG Ketorolac Tromethamine (Toradol Inj) 30 mg NOW STAT IV 06/30/17 00:59 06/30/17 01:01 DC 06/30/17 01:18 30 MG Dexamethasone Sodium Phosphate (Decadron Inj) 10 mg NOW ONCE IV 06/30/17 02:15 06/30/17 02:16 DC 06/30/17 02:17 10 MG Sodium Chloride 1,000 ml @ 999 mls/hr Q1H1M STAT IV 06/30/17 02:04 06/30/17 03:04 DC 06/30/17 02:17 999 MLS/HR ED Course 0055: The patient was evaluated in room A10. A complete history and physical exam was performed. 0059: Toradol 30 mg IV, Benadryl 25 mg IV, Reglan 10 mg IV, NSS 1000 ml @ 999 mls/hr IV. 0204: NSS 1000 ml @ 999 mls/hr IV. 0215: Decadron 10 mg IV. Medical Decision I reviewed the patient's past medical history, medications, and the nursing notes as described above. The differential diagnoses considered include migraine headache, tension headache, intracranial hemorrhage, meningitis and dehydration. Patient is a 51-year-old gentleman with a past medical history of migraines as well as recent admission with wide complex tachycardia presents emergency Department with complaint of gradual onset headache over the past 2 days per history of present illness. Arrival the patient appears mildly uncomfortable but in no acute distress and is afebrile with stable vital signs. She has mild photophobia but otherwise neurologically intact. Onset and chronicity not consistent with SAH. Neck is supple making managed chart is unlikely. Electrolytes done earlier in the day outpatient were unremarkable. He was treated with migraine cocktail with improvement in his symptoms although still present. An additional liter with a dose of dexamethasone with still additional improvement in his symptoms and the patient felt that he could go home. Findings and plan for follow-up d/w patient. Patient agreeable and d/c'd per discharge instructions. Medication Reconcilliation Current Medication List: was personally reviewed by me Blood Pressure Screening Patient's blood pressure: Elevated blood pressure Blood pressure disposition: Elevated BP felt to be situational Impression Primary Impression: Migraine headache Scribe Attestation The scribe's documentation has been prepared under my direction and personally reviewed by me in its entirety. I confirm that the note above accurately reflects all work, treatment, procedures, and medical decision making performed by me. Departure Information Dispostion Home / Self-Care Referrals Jhonny Damian M.D. (PCP) Patient Instructions ED Headache Migraine, My [facility] Additional Instructions Please follow up with your primary care physician in the next 1-3 days. Your symptoms improved with IV fluid hydration and medications. Otherwise, your exam did not show signs of an emergent condition at this time. Make sure to stay hydrated. Return to the emergency department for worsening symptoms as described in the accompanying instructions.
[2017-06-30] MEDS ORDERED: DEXAMETHASONE SOD INJ 10 MG/ML VIAL IV ONE (02:15)
[2017-06-30 03:13] VITALS: BP 154/77; PULSE 64; O2SAT 97
== END 2017-06-30 03:13 | disposition home or self-care (01) ==
LOC: C.EDB 00:37 → C.EDA 03:13
DX: G43.909 Migraine, unspecified, not intractable, without status migrainosus (principal); I10 Essential (primary) hypertension; F32.9 Major depressive disorder, single episode, unspecified; J45.909 Unspecified asthma, uncomplicated; Z79.899 Other long term (current) drug therapy; Z88.0 Allergy status to penicillin; Z88.1 Allergy status to other antibiotic agents; Z88.8 Allergy status to other drugs, medicaments and biological substances; Z80.9 Family history of malignant neoplasm, unspecified; Z82.49 Family history of ischemic heart disease and other diseases of the circulatory system

== ENCOUNTER → 2017-08-04 | Outpatient (CLI) | payer BC ==
[~2017-08-04] VITALS: Ht 190.5 cm; Wt 117.8 kg
[2017-08-04 15:35] VITALS: BP 150/90; PULSE 88; Ht 190.5 cm; Wt 117.8 kg
== END | disposition home or self-care (01) ==
LOC: C.NEUR 14:53
PROVIDERS: ATTEND Internal Medicine Pulmonary Disease
DX: G47.00 Insomnia, unspecified (principal); G47.61 Periodic limb movement disorder; R06.81 Apnea, not elsewhere classified; R53.83 Other fatigue; F32.9 Major depressive disorder, single episode, unspecified; I49.8 Other specified cardiac arrhythmias; I47.2 Ventricular tachycardia

== ENCOUNTER → 2017-11-06 | Outpatient (CLI) | payer BC ==
--- NOTE | 2017-11-06 11:49 | DIAGNOSTIC IMAGING REPORT ---
CHEST 2 VIEWS ROUTINE CLINICAL HISTORY: PERSONAL HX OF PNEUMONIA pneumonitis COMPARISON STUDY: 04/17/2017 FINDINGS: The bones soft tissues and hemidiaphragms are normal. The cardiomediastinal silhouette is normal. The lungs are clear. The pulmonary vasculature is normal. IMPRESSION: Negative chest. The lungs are considered clear. The above report was generated using voice recognition software. It may contain grammatical, syntax or spelling errors. Electronically signed by: Chad Rojas M.D. 11/06/2017 11:48 AM Dictated Date/Time: 11/06/2017 11:48 AM
== END | disposition home or self-care (01) ==
LOC: C.RAD1850 11:35
PROVIDERS: ATTEND Family Medicine
DX: Z87.01 Personal history of pneumonia (recurrent) (principal)

== ENCOUNTER 2018-01-27 06:36 | Emergency (ER) | payer BC, OTHER ==
[~2018-01-27] VITALS: Ht 190.5 cm; Wt 104.8 kg
[2018-01-27 06:40] VITALS: Ht 190.5 cm; Wt 104.8 kg
[2018-01-27] MEDS ORDERED: NEBI10TA2 PO (07:00)
[2018-01-27] MEDS ORDERED: METHYLPREDNISOLONE 125 MG VIAL IV STA (07:18)
[2018-01-27] MEDS ORDERED: ALBUT/IPRATROP 3MG/0.5MG NEB 3 ML VIAL INH STA (07:18)
[2018-01-27 08:15] LABS: BASO % 0.1 %; BASO ABS # 0.01 K/uL (0-0.2); EOS % 2.9 %; EOS ABS # 0.33 K/uL (0-0.5); HEMATOCRIT 47.7 % (42-52); HEMOGLOBIN 16.4 g/dL (14.0-18.0); IG# 0.04 K/uL (0.00-0.02); LYMPH % 6.4 %; LYMPH ABS # 0.74 K/uL (1.2-3.4); MEAN CELL VOLUME 84.6 fL (80-100); MEAN CORPUSCULAR HEMOGLOBIN 29.1 pg (25-34); MEAN CORPUSCULAR HGB CONC 34.4 g/dl (32-36); MEAN PLATELET VOLUME 10.5 fL (7.4-10.4); MONO % 6.8 %; MONO ABS # 0.78 K/uL (0.11-0.59); NEUT % 83.5 %; NEUT ABS # 9.62 K/uL (1.4-6.5); PLATELET COUNT 190 K/uL (130-400); RED CELL DISTRIBUTION WIDTH CV 13.5 % (11.5-14.5); RED CELL DISTRIBUTION WIDTH SD 41.6 fL (36.4-46.3); WHITE BLOOD COUNT 11.52 K/uL (4.8-10.8)
[2018-01-27 08:29] LABS: ALBUMIN 3.6 gm/dl (3.4-5.0); ALT/SGPT 72 U/L (12-78); BLOOD UREA NITROGEN 11 mg/dl (7-18); CALCIUM 8.4 mg/dl (8.5-10.1); CARBON DIOXIDE 26 mmol/L (21-32); CREATININE 1.05 mg/dl (0.60-1.40); GLUCOSE 92 mg/dl (70-99); POTASSIUM 3.5 mmol/L (3.5-5.1); SODIUM 137 mmol/L (136-145)
--- NOTE | 2018-01-27 08:30 | DIAGNOSTIC IMAGING REPORT ---
CHEST 2 VIEWS ROUTINE HISTORY: 52 years-old Male COUGH, SOB, FLU-LIKE SYMPTOMS acute cough with shortness of breath COMPARISON: Chest radiographs 11/06/2017 TECHNIQUE: PA and lateral views of the chest FINDINGS: Cardiac silhouette is mildly enlarged, unchanged. Atherosclerosis of the aorta. No pneumothorax or pleural effusion. There are patchy subsegmental bibasilar opacities present, some of which appear linear. No overt pulmonary edema. Bones of the chest appear grossly intact. IMPRESSION: 1. Patchy subsegmental bibasilar opacities favor atelectasis, however pneumonia could have a similar appearance. 2. Mild cardiomegaly without overt pulmonary edema. The above report was generated using voice recognition software. It may contain grammatical, syntax or spelling errors. Electronically signed by: Karthikeyan Lopez M.D. 01/27/2018 8:29 AM Dictated Date/Time: 01/27/2018 8:26 AM
[2018-01-27 08:38] LABS: ALKALINE PHOSPHATASE 74 U/L (45-117); AST/SGOT 39 U/L (15-37); CKMB 1.7 ng/ml (0.5-3.6); TOTAL PROTEIN 7.5 gm/dl (6.4-8.2)
[2018-01-27] MEDS ORDERED: ACETAMINOPHEN 500 MG TAB PO STA (09:05)
[2018-01-27] MEDS ORDERED: KETOROLAC TROMETHAMINE 30 MG/ML VIAL IV STA (09:05)
[2018-01-27 09:13] VITALS: BP 160/101
[2018-01-27] MEDS ORDERED: DOXYCYCLINE HYCLATE 100 MG CAP PO ONE (09:15)
[2018-01-27 09:23] LABS: INFLUENZA B ANTIGEN Neg for Influ B (NEG)
[2018-01-27] MEDS ORDERED: DOXY100C76 PO (09:47)
[2018-01-27] MEDS ORDERED: VNTHFA/IN INH (09:47)
[2018-01-27] MEDS ORDERED: IPRASOL4 INH (09:47)
[2018-01-27] MEDS ORDERED: PRED20TA PO (09:47)
[2018-01-27] MEDS ORDERED: HYDR5SYP11 PO (09:47)
--- NOTE | 2018-01-27 09:49 | EMERGENCY ROOM VISIT NOTE ---
History First contact with patient: 06:56 Chief Complaint: FLU LIKE SX Stated Complaint: VOMITING,SORE THROAT,TROUBLE BREATHING-ASTHMA,ACHE History of Present Illness Patient is a 52-year-old white male with past medical history significant for asthma, hypertension, among other medical issues, who presents emergency department for evaluation of flulike symptoms, productive cough and shortness of breath. He reports that about a week and a half ago, he developed flulike symptoms including congestion, cough and fever. He was seen at [facility] and diagnosed with influenza clinically and placed on a course of Tamiflu. He was also placed on a prednisone taper which he took. He states that his symptoms improved, and he was feeling better until yesterday, when he developed a sore throat, body and muscle aches, sweats and chills and a low-grade fever. He reports that his temperature was 100F last evening. He has had difficulty sleeping overnight, and reports a productive cough. He states that his breathing is his primary concern as he feels like he cannot take a full deep breath or catch his breath. He is on Singulair and Flonase chronically, he took airborne, Mucinex and has been using throat lozenges since yesterday. He has an Advair and albuterol inhaler at home, which he has not been using. He reports some chest tightness, but denies any chest pain, palpitations or irregular heartbeat. He has been hospitalized for an asthma exacerbation a couple of years ago, but has never been intubated for his asthma. He traveled by car to [place] a month ago, otherwise no prolonged travel. He has noted some pain in the left lower leg, but no swelling. He is not a smoker. He did get a flu shot this year. He has not been on any antibiotics recently. Review of Systems Review of systems as per HPI. All other systems reviewed were negative. 10 systems reviewed. Past Medical/Surgical History Medical Problems: (1) Acute asthma exacerbation (2) Asthma (3) Benign hypertension (4) Bronchitis (5) Chest pain (6) Depression (7) Headache (8) Migraine headache (9) Migraines (10) Pneumonia (11) URI (upper respiratory infection) (12) Ventricular tachycardia, non-sustained (13) Vomiting Electronic medical records are reviewed and summarized as above/below. See Problem List. Family History FH: cancer FHx: heart disease Hypertension Social History Smoking Status: Never Smoker Alcohol Use: occasionally Drug Use: none Marital Status: Housing Status: lives with family Occupation Status: employed Current/Historical Medications Scheduled Ascorbic Acid (Ascorbic Acid), 500 MG PO QAM Calcium W/ Magnesium (Calcium Magnesium 750), 2 TABS PO QAM Cholecalciferol (Vitamin D3), 1 CAP PO QAM Cyclobenzaprine Hcl (Flexeril), 10 MG PO HS Diazepam (Valium), 10 MG PO HS Doxycycline Monohydrate (Monodox), 100 MG PO BID Fluticasone Propionate (Fluticasone Propionate), 2 SPRAYS TG QAM Krill Oil (Krill Oil 500 mg), 500 MG PO QAM Montelukast Sod (Montelukast Sodium), 10 MG PO QAM Multivitamins/Minerals (Mvi With Minerals), 1 TAB PO BID Nebivolol Hcl (Bystolic), 10 MG PO DAILY Potassium Chloride (Klor-Con M20), 20 MEQ PO QAM Prednisone (Prednisone), 0 PO DAILY Scheduled PRN Albuterol Hfa (Ventolin Hfa), 2-4 PUFFS INH Q6H PRN for SOB/Wheezing Albuterol Hfa (Ventolin Hfa), 2 PUFFS INH Q4 PRN for SOB/Wheezing Echinacea (Echinacea), 2 TAB PO DAILY PRN for PRN Fluticasone Prop/Salmeterol (Advair Diskus 500/50 60 Dose), 1 PUFF INH BID PRN for PRN Hydrocodone W/ Homatropine (Hycodan 5/1.5MG 5 Ml), 10 ML PO Q4H PRN for Cough Ipratropium-Albuterol (Duoneb), 1 TREATMENT INH Q4H PRN for SOB/Wheezing Physical Exam Vital Signs Date Time Temp Pulse Resp B/P (MAP) Pulse Ox O2 Delivery O2 Flow Rate FiO2 01/27/18 10:10 37.2 92 98 01/27/18 09:13 37.2 94 16 160/101 01/27/18 08:56 98 23 92 01/27/18 08:51 97 26 92 01/27/18 08:46 84 30 92 01/27/18 08:41 99 25 93 01/27/18 08:36 91 24 95 01/27/18 08:31 82 21 95 01/27/18 08:30 167/110 01/27/18 08:29 169/101 01/27/18 08:16 79 22 96 01/27/18 08:11 84 17 99 01/27/18 08:06 80 18 98 01/27/18 08:01 74 19 95 01/27/18 07:56 81 27 94 01/27/18 07:51 78 18 94 01/27/18 07:51 37.4 01/27/18 07:46 69 27 93 01/27/18 07:41 74 20 93 01/27/18 07:39 146/107 01/27/18 07:36 84 22 94 01/27/18 07:31 86 01/27/18 07:31 82 19 93 01/27/18 07:26 163/110 01/27/18 06:40 36.9 104 20 172/90 96 Room Air Physical Exam CONSTITUTIONAL: 52-year-old white male who is awake and alert and in no acute distress. EYES: Pupils equal, round, reactive to light and accommodation. EOMs intact without nystagmus. Sclera are anicteric. ENT: Tympanic membranes intact, with normal landmarks. External canals are clear. Oral and nasopharynx are clear. Mucous membranes are moist, no lesions , tongue and gums appear normal. NECK: No bruits auscultated. Supple without lymphadenopathy. No thyromegaly. No meningeal signs. Full active range of motion without discomfort. CARDIOVASCULAR: Regular rate and rhythm, with normal S1 and S2, no murmur or gallop or rub is heard. No carotid bruits auscultated. No JVD. Peripheral pulses easy to palpable. RESPIRATORY: Breath sounds harsh and diminished at the bases bilaterally, posteriorly. No wheezes, rales, or rhonchi heard. Full and equal chest expansion without accessory muscle use or retractions. MUSCULOSKELETAL: Full range of motion of extremities x 4 with good strength. No cyanosis, edema, joint tenderness or swelling. No deformity. Calves are soft and nontender. Negative Homans sign. INTEGUMENTARY: No lesions or rash, normal skin turgor. NEUROLOGICAL: Alert, oriented, and cooperative. Cranial nerves, sensation and strength grossly intact. Pupils round, equal, and react to light, EOMs are full. LYMPH: No lymphadenopathy. Patient is an ill, nontoxic-appearing Medical Decision & Procedures ER Provider Diagnostic Interpretation: CHEST 2 VIEWS ROUTINE HISTORY: 52 years-old Male COUGH, SOB, FLU-LIKE SYMPTOMS acute cough with shortness of breath COMPARISON: Chest radiographs 11/06/2017 TECHNIQUE: PA and lateral views of the chest FINDINGS: Cardiac silhouette is mildly enlarged, unchanged. Atherosclerosis of the aorta. No pneumothorax or pleural effusion. There are patchy subsegmental bibasilar opacities present, some of which appear linear. No overt pulmonary edema. Bones of the chest appear grossly intact. IMPRESSION: 1. Patchy subsegmental bibasilar opacities favor atelectasis, however pneumonia could have a similar appearance. 2. Mild cardiomegaly without overt pulmonary edema. Laboratory Results 01/27/18 07:44 Red Blood Count 5.64, Mean Corpuscular Volume 84.6, Mean Corpuscular Hemoglobin 29.1, Mean Corpuscular Hemoglobin Concent 34.4, Mean Platelet Volume 10.5, Neutrophils (%) (Auto) 83.5, Lymphocytes (%) (Auto) 6.4, Monocytes (%) (Auto) 6.8, Eosinophils (%) (Auto) 2.9, Basophils (%) (Auto) 0.1, Neutrophils # (Auto) 9.62, Lymphocytes # (Auto) 0.74, Monocytes # (Auto) 0.78, Eosinophils # (Auto) 0.33, Basophils # (Auto) 0.01 01/27/18 07:44 Test 01/27/18 07:27 01/27/18 07:44 01/27/18 07:49 Influenza Type A Antigen Neg for Influ A (NEG) Influenza Type B Antigen Neg for Influ B (NEG) White Blood Count 11.52 K/uL (4.8-10.8) Red Blood Count 5.64 M/uL (4.7-6.1) Hemoglobin 16.4 g/dL (14.0-18.0) Hematocrit 47.7 % (42-52) Mean Corpuscular Volume 84.6 fL (80-100) Mean Corpuscular Hemoglobin 29.1 pg (25-34) Mean Corpuscular Hemoglobin Concent 34.4 g/dl (32-36) Platelet Count 190 K/uL (130-400) Mean Platelet Volume 10.5 fL (7.4-10.4) Neutrophils (%) (Auto) 83.5 % Lymphocytes (%) (Auto) 6.4 % Monocytes (%) (Auto) 6.8 % Eosinophils (%) (Auto) 2.9 % Basophils (%) (Auto) 0.1 % Neutrophils # (Auto) 9.62 K/uL (1.4-6.5) Lymphocytes # (Auto) 0.74 K/uL (1.2-3.4) Monocytes # (Auto) 0.78 K/uL (0.11-0.59) Eosinophils # (Auto) 0.33 K/uL (0-0.5) Basophils # (Auto) 0.01 K/uL (0-0.2) RDW Standard Deviation 41.6 fL (36.4-46.3) RDW Coefficient of Variation 13.5 % (11.5-14.5) Immature Granulocyte % (Auto) 0.3 % Immature Granulocyte # (Auto) 0.04 K/uL (0.00-0.02) Anion Gap 8.0 mmol/L (3-11) Est Creatinine Clear Calc Drug Dose 110.3 ml/min Estimated GFR () 95.5 Estimated GFR (Non- 82.4 BUN/Creatinine Ratio 10.2 (10-20) Calcium Level 8.4 mg/dl (8.5-10.1) Total Bilirubin 0.6 mg/dl (0.2-1) Aspartate Amino Transf (AST/SGOT) 39 U/L (15-37) Alanine Aminotransferase (ALT/SGPT) 72 U/L (12-78) Alkaline Phosphatase 74 U/L (45-117) Total Creatine Kinase 93 U/L (39-308) Creatine Kinase MB 1.7 ng/ml (0.5-3.6) Creatine Kinase MB Ratio 1.8 (0-3.0) Troponin I < 0.015 ng/ml (0-0.045) Total Protein 7.5 gm/dl (6.4-8.2) Albumin 3.6 gm/dl (3.4-5.0) Globulin 3.9 gm/dl (2.5-4.0) Albumin/Globulin Ratio 0.9 (0.9-2) Bedside D-Dimer 377 ng/mlFEU (0-450) Medications Administered Medications (Trade) Dose Ordered Sig/North Route Start Time Stop Time Status Last Admin Dose Admin Methylprednisolone Sodium Succinate (Solu-Medrol IV) 125 mg NOW STAT IV 01/27/18 07:18 01/27/18 07:22 DC 01/27/18 07:58 125 MG Albuterol/ Ipratropium (Duoneb) 3 ml NOW STAT INH 01/27/18 07:18 3 07:22 DC 01/27/18 07:58 3 ML Acetaminophen (Tylenol Tab) 1,000 mg NOW STAT PO 01/27/18 09:05 01/27/18 09:06 DC 01/27/18 09:11 1,000 MG Ketorolac Tromethamine (Toradol Inj) 30 mg NOW STAT IV 01/27/18 09:05 01/27/18 09:06 DC 01/27/18 09:12 30 MG Doxycycline Hyclate (Vibramycin Cap) 100 mg ONE ONCE PO 01/27/18 09:15 01/27/18 09:16 DC 01/27/18 09:11 100 MG ECG Per My Interpretation Indication: SOB/dyspnea Rate (beats per minute): 83 Rhythm: sinus rhythm Findings: PVC Comparison ECG Date: PVCs are new, ED Course The patient was seen and assessed as above. His old records were reviewed. IV lock was initiated, EKG was performed, laboratory studies were collected and he was placed on a classroom monitor. The patient was given a DuoNeb treatment and site Medrol 125 mg IV. CBC with differential, CMP, cardiac enzymes, point-of- care d-dimer and an influenza swab were performed. Chest x-ray was obtained. The patient was reassessed frequently. He did have some improvement after the breathing treatment. His laboratory studies noted a white count of 11,500, H&H is normal. Left shift and bandemia is present. Electrolytes are without significant abnormality. Renal functions are normal. LFTs are unremarkable. Cardiac enzymes are negative 1. [id number] d-dimer was within normal limits given this and the lack of PE risk factors, CT scan for PE was not pursued. Influenza swab was negative. Patient was reassessed after chest x-ray, and began to notice more body and muscle aches, a mild headache and sweats. Vital signs were rechecked and he was afebrile. The patient was still mildly tachycardic after the nebulizer treatment. Chest x-ray noted patchy subsegmental bibasilar opacities favoring atelectasis, however pneumonia could appear similar. Mild cardiomegaly without pulmonary edema. He was medicated with Toradol 30 mg IV, doxycycline 100 mg orally and acetaminophen 1 g orally. All laboratory and diagnostic imaging studies were reviewed with the patient. Given his recent flulike illness, now with more acute cough, fever and shortness of breath, in the setting of the patient's asthma, I have elected to treat him for pneumonia/asthma exacerbation. The patient does have a nebulizer machine at home, but no nebulizer vials. He will be placed on doxycycline and prednisone, was given DuoNeb treatments and an albuterol inhaler. He was also given Hycodan to use for nighttime cough. He was encouraged to follow-up with his primary care provider for recheck and was welcome to return to emergency department at any point if his symptoms are worsening. He expressed understanding of this and was agreeable. He was discharged home in fair condition. Differential diagnosis includes acute myocardial infarction, acute coronary syndrome, myocarditis, pericarditis, pericardial effusions /tamponade, esophageal perforation, pulmonary embolism, pneumonia, pneumothorax, cardiomyopathy, congestive heart failure, anemia , COPD/asthma exacerbation, musculoskeletal, anxiety, costochondritis, among others. Medical Decision See ED Course. Medication Reconcilliation Current Medication List: was personally reviewed by me Blood Pressure Screening Patient's blood pressure: Elevated blood pressure Blood pressure disposition: Elevated BP felt to be situational Impression Primary Impression: Pneumonia Additional Impression: Acute asthma exacerbation Departure Information Prescriptions Hydrocodone W/ Homatropine (HYCODAN 5/1.5MG 5 ML) 1 Syp Syp 10 ML PO Q4H Y for Cough, #200 ML For Initial Treatment Prov: Alix Tatum PA 01/27/18 Albuterol Hfa (VENTOLIN HFA) 200 Puffs/[id number] Mcg Aers 2 PUFFS INH Q4 Y for SOB/Wheezing, #1 INHALER Prov: Alix Tatum PA 01/27/18 Ipratropium-Albuterol (DUONEB) 3 Ml Nebu 1 TREATMENT INH Q4H Y for SOB/Wheezing, #1 BOX Prov: Alix Tatum PA 01/27/18 Prednisone (Prednisone) 20 Mg Tab 0 PO DAILY, #18 TAB 3 DAILY FOR 3 DAYS, THEN 2 DAILY FOR 3 DAYS, THEN 1 DAILY FOR 3 DAYS. Prov: Alix Tatum PA 01/27/18 Doxycycline Monohydrate (Monodox) 100 Mg Cap 100 MG PO BID, #14 CAP Prov: Alix Tatum PA 01/27/18 Referrals Jhonny Damian M.D. (PCP) Patient Instructions [facility] Additional Instructions Doxycycline 100mg: Take one pill twice daily for seven days for your infection. Take with food, but avoid dairy. Avoid prolonged sun exposure since this medication makes you temporarily more susceptible to sunburns. All antibiotics can cause diarrhea. If this occurs and you feel worse or it does not resolve in 1-2 days follow up with your doctor or return to the Emergency Department as this could be signs of serious underlying problems. Any medication can cause an allergic reaction, stop the pills immediately and return to the ER for rash, hives, breathing difficulties, or swelling. Prednisone : Once daily until the prescription is finished. It is best to take this earlier in the day as some patients note occasional difficulty falling asleep when taken in the late evening. Albuterol Inhaler/Duoneb treatments: Take 1 nebulizer treatment or 2 puffs via inhaler every 4 hours (while awake) for the next 5-7 days, then as needed. Resume Advair. Ibuprofen(Motrin, Advil) may be used for fever or pain. Use 600mg every six hours as needed. Take with food. Avoid using more than 2400mg in a 24 hour period. Do not use 2400mg per day for more than three consecutive days without physician direction. Prolonged inappropriate use can lead to stomach upset or ulcers. This is available over the counter and typically comes in 200mg tablets. (AND/OR) Acetaminophen(Tylenol) may be used for fever or pain. Use 1000mg every eight hours as needed. Avoid using more than 3000mg in a 24 hour period. This is available over the counter. Hycodan cough syrup: use 10 mL every six hours only as needed for severe cough. It is best for use at night since it will cause sedation. This is a narcotic medication. Avoid alcohol, operating machinery or dangerous equipment, working on ladders or roofs, DRIVING, important decision making, or situations where being under the influence may be dangerous. It is recommended to use an [id number]-[id number] stool softener such as Colace, 100mg twice daily while taking this medication to avoid constipation. Read all the package inserts or medication information paperwork provided. If you have any questions or concerns call your primary provider, pharmacist or the ER for assistance. Controlling your fever with Tylenol and Ibuprofen as above will make you feel better. Rest and drink plenty of fluids. Avoid strenuous activity until your symptoms resolve and your breathing returns to normal. Continue current medications. Return to the ER for chest pain, difficulty breathing, persistent fevers, vomiting, worsening of your condition, or as needed. Follow up with your primary care physician next week for recheck. Problem Qualifiers
[2018-01-27 10:10] VITALS: PULSE 92; TEMP 37.2; O2SAT 98
== END 2018-01-27 10:12 | disposition home or self-care (01) ==
LOC: C.EDB 06:37 → C.EDA 10:12
DX: J18.9 Pneumonia, unspecified organism (principal); J45.901 Unspecified asthma with (acute) exacerbation; I11.9 Hypertensive heart disease without heart failure; Z86.59 Personal history of other mental and behavioral disorders; Z87.01 Personal history of pneumonia (recurrent); Z82.49 Family history of ischemic heart disease and other diseases of the circulatory system

== ENCOUNTER → 2018-03-16 | Outpatient (CLI) | payer OTHER ==
[~2018-03-16] MED LIST changes: +DOXY100C76 PO; +IPRASOL4 INH; -LISI20TA3 PO; -LXP10 PO; +NEBI10TA2 PO; +PRED20TA PO
--- NOTE | 2018-03-16 12:33 | DIAGNOSTIC IMAGING REPORT ---
CHEST 2 VIEWS ROUTINE CLINICAL HISTORY: J18.9 dyspnea. Pneumonia. COMPARISON STUDY: 01/27/2018 FINDINGS: Minimal bibasilar atelectasis. No focal infiltrate. Diaphragms are smooth. Lungs otherwise appear clear. Heart top limits normal in terms of size. IMPRESSION: Mildly improved exam with minimal residual bibasilar atelectasis. The above report was generated using voice recognition software. It may contain grammatical, syntax or spelling errors. Electronically signed by: Chad Rojas M.D. 03/16/2018 12:31 PM Dictated Date/Time: 03/16/2018 12:30 PM
== END | disposition home or self-care (01) ==
LOC: C.RAD 11:26
PROVIDERS: ATTEND Nurse Practitioner Family
DX: J18.9 Pneumonia, unspecified organism (principal); Z88.0 Allergy status to penicillin; Z88.1 Allergy status to other antibiotic agents

== ENCOUNTER 2018-06-27 16:11 | Emergency (ER) | payer OTHER ==
[~2018-06-27] VITALS: Ht 190.5 cm; Wt 123.6 kg
[~2018-06-27 16:11] MED LIST changes: -ADVIN50/60 INH; -CALC1TAB25 PO; +IPRA-64 INH; -IPRASOL4 INH; -KRIL1CAP24 PO; -MULT-513 PO
[2018-06-27 16:19] VITALS: TEMP 36.7; Ht 190.5 cm; Wt 123.6 kg
[2018-06-27] MEDS ORDERED: SODIUM CHLORIDE 0.9% 1000ML 1,000 ML IV STA (16:26)
[2018-06-27] MEDS ORDERED: DiphenhydrAMINE HCL 50 MG/ML VIAL IV STA (16:26)
[2018-06-27] MEDS ORDERED: ACETAMINOPHEN IV 100 ML IV STA (16:26)
[2018-06-27] MEDS ORDERED: METOCLOPRAMIDE HCL INJ 5 MG/ML 2 ML VIAL IV STA (16:26)
[2018-06-27] MEDS ORDERED: KRIL1CAP24 PO (16:32)
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
[2018-06-27 17:00] VITALS: O2SAT 95
[2018-06-27 17:13] LABS: BASO % 0.2 %; BASO ABS # 0.01 K/uL (0-0.2); EOS % 3.9 %; EOS ABS # 0.25 K/uL (0-0.5); HEMATOCRIT 43.5 % (42-52); HEMOGLOBIN 14.8 g/dL (14.0-18.0); IG# 0.01 K/uL (0.00-0.02); LYMPH % 24.9 %; LYMPH ABS # 1.61 K/uL (1.2-3.4); MEAN CELL VOLUME 84.3 fL (80-100); MEAN CORPUSCULAR HEMOGLOBIN 28.7 pg (25-34); MEAN PLATELET VOLUME 11.1 fL (7.4-10.4); MONO % 6.2 %; NEUT % 64.6 %; NEUT ABS # 4.19 K/uL (1.4-6.5); PLATELET COUNT 204 K/uL (130-400); RED CELL DISTRIBUTION WIDTH CV 13.5 % (11.5-14.5); RED CELL DISTRIBUTION WIDTH SD 41.4 fL (36.4-46.3); WHITE BLOOD COUNT 6.47 K/uL (4.8-10.8)
[2018-06-27] MEDS ORDERED: NEBI20TA2 PO (17:15)
[2018-06-27] MEDS ORDERED: BYS5 PO (17:15)
[2018-06-27] MEDS ORDERED: POTA-639 PO (17:15)
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
[2018-06-27 17:53] LABS: ALBUMIN 3.4 gm/dl (3.4-5.0); CREATININE 1.59 mg/dl (0.60-1.40)
--- NOTE | 2018-06-27 18:00 | DIAGNOSTIC IMAGING REPORT ---
CHEST ONE VIEW PORTABLE CLINICAL HISTORY: CHEST PAIN dyspnea COMPARISON STUDY: 03/16/2018 FINDINGS: The bones soft tissues and hemidiaphragms are normal. The cardiomediastinal silhouette is normal. The lungs are clear. The pulmonary vasculature is normal. IMPRESSION: Negative chest. The above report was generated using voice recognition software. It may contain grammatical, syntax or spelling errors. Electronically signed by: Chad Rojas M.D. 06/27/2018 5:59 PM Dictated Date/Time: 06/27/2018 5:59 PM
[2018-06-27] MEDS ORDERED: NON-FORMULARY MEDICATION IV STA (18:35)
[2018-06-27] MEDS ORDERED: MAGNESIUM SULFATE 1GM / D5W 1 GM BAG IV STA (18:41)
[2018-06-27] MEDS ORDERED: POTASSIUM CHLORIDE 10 MEQ TABCR PO STA (18:41)
[2018-06-27] MEDS ORDERED: DEXAMETHASONE **PF** INJ 10 MG/ML VIAL IV ONE (18:45)
[2018-06-27] MEDS ORDERED: SODIUM CHLORIDE 0.9% IV ONE (19:15)
[2018-06-27] MEDS ORDERED: HALOPERIDOL IV ONE (19:15)
[2018-06-27] MEDS ORDERED: DIAZEPAM 5MG TAB PO STA (20:07)
[2018-06-27] MEDS ORDERED: CYCLOBENZAPRINE HCL 5 MG TAB PO STA (20:07)
[2018-06-27 21:38] VITALS: BP 144/97; PULSE 82; O2SAT 95
[2018-06-27] MEDS ORDERED: MULT-513 PO (22:02)
[2018-06-27] MEDS ORDERED: CALC1TAB25 PO (22:02)
[2018-06-27] MEDS ORDERED: ADVIN50/60 INH (22:02)
== END 2018-06-27 21:47 | disposition home or self-care (01) ==
LOC: C.EDB 16:13
DX: S06.0X0A Concussion without loss of consciousness, initial encounter (principal); E86.0 Dehydration; W20.8XXA Other cause of strike by thrown, projected or falling object, initial encounter; J45.909 Unspecified asthma, uncomplicated; I10 Essential (primary) hypertension; F17.200 Nicotine dependence, unspecified, uncomplicated; Z88.1 Allergy status to other antibiotic agents; Z88.0 Allergy status to penicillin; Z88.8 Allergy status to other drugs, medicaments and biological substances

== ENCOUNTER 2023-01-05 15:41 | Inpatient (IN) ==
[2023-01-05 16:31] LABS: Basophils # (auto) 0.03 K/uL (0-0.2); Basophils % (auto) 0.3 %; Eosinophils # (auto) 0.15 K/uL (0-0.50); Eosinophils % (auto) 1.7 %; Hematocrit (blood only) 45.2 % (42.0-52.0); Hemoglobin 15.4 g/dl (14.0-18.0); Immature Granulocytes # (auto) 0.03 K/uL (0.01-0.20); Immature Granulocytes % (auto) 0.3 %; Lymphocytes % (auto) 19.7 %; Mean Corpuscular Hemoglobin 28.5 pg (25.0-34.0); Mean Corpuscular Hgb Conc 34.1 g/dL (32.0-36.0); Mean Corpuscular Volume 83.5 fL (80.0-100.0); Mean Platelet Volume 10.6 fL (9.4-12.4); Monocytes # (auto) 0.76 K/uL (0.11-0.59); Monocytes % (auto) 8.8 %; Neutrophils # (auto) 5.98 K/uL (1.40-6.50); Neutrophils % (auto) 69.2 %; Platelet Count 302 K/uL (130-400); RDW Coefficient of Variation 13.2 % (11.5-14.5); RDW Standard Deviation 39.8 fL (36.4-46.3); Red Blood Count 5.41 M/uL (4.70-6.10); White Blood Count 8.65 K/ul (4.8-10.8)
[2023-01-05 16:52] LABS: Albumin Globulin Ratio 1.5 (0.9-2); BUN Creatinine Ratio 14.5 (10-20); Bilirubin,Total 0.6 mg/dl (0.2-1.0); Creatinine Clr Calc Pharmacy 104.7 ml/min; Est GFR (African American) 87.1 ml/min; Est GFR (Non-African American) 75.2 ml/min; Globulin 2.7 gm/dl (2.5-4.0); Magnesium 2.2 mg/dl (1.7-2.4); Potassium 3.3 mmol/L (3.5-5.1); Total Protein 6.7 gm/dl (6.0-8.3)
[2023-01-05 16:58] LABS: Troponin I High Sensitivity 32.7 pg/ml (0-20)
--- NOTE | 2023-01-05 17:00 | XRay Report ---
SINGLE VIEW CHEST CLINICAL HISTORY: Atypical chest pain FINDINGS: An AP, portable, upright chest radiograph is compared to study dated 11/10/2022 and correla lela with chest CT dated 12/02/2022. The heart is enlarged. There is prominence of the pulmonary vascul ature. The lungs and pleural spaces are clear noting bibasilar atelectasis. No pneumothorax is seen. The bony thorax is grossly intact. IMPRESSION: Cardiomegaly with prominence of the pulmonary vasculature. Correlate clinically for evide nce of fluid overload/mild congestive change. ACT 112: Negative or not required by law. Electronically signed by: Reji Lauren M.D. 01/05/2023 4:59 PM
[2023-01-05 17:09] LABS: Partial Thromboplastin Ratio 0.9; Prothrombin Time 10.9 Seconds (9.0-12.0)
[2023-01-05] MEDS ORDERED: Heparin IV Adult Wt-Based Low-Dose WITH Bolus Protocol IV STA (18:37)
[2023-01-05] MEDS ORDERED: POTASSIUM CHLORIDE 10 MEQ TABCR PO STA (18:37)
[2023-01-05] MEDS ORDERED: HEPARIN SOD (PORCINE) 1000 UNIT/ML IV ONE (18:53)
[2023-01-05] MEDS: HEPARIN SODIUM/DEXTROSE 25,000 UNITS/500 ML BAG IV SCH (18:53)
--- NOTE | 2023-01-05 20:03 | Emergency Department Note ---
History of Present Illness General Chief complaint: Cardiac Assessment Stated complaint: REF BY CARDI, ABNORMAL LABS,A FIB Time Seen by Provider: 01/05/23 16:06 History of Present Illness Provider complaint: Abnormal echo chest pain Maximum Pain Intensity: 1 57-year-old male presents emergency department for an abnormal echo and chest pain. Patient states that he has been having chest pain that comes and goes since he had COVID in August. He also reports some progressive dyspnea since August after being diagnosed with COVID-19. Patient reports that he was sent for an echocardiogram by Dr. Luciano Black cardiology and while he was there they discovered he was in atrial fibrillation. Patient has no history of atrial fibrillation. He states that the compressor service technician then spoke with Dr. Luciano Black who reviewed his images and then referred him to the emergency department. Patient currently reports no chest pain or difficulty breathing. He reports no hem optysis. Patient is not on any blood thinners. Patient has not traveled anywhere recently. No hemoptysis. No exogenous hormone usage. Home Medications Medication Instructions Recorded Confirmed Type albuterol sulfate 90 mcg/actuation 1 puffs inhalation .COMPLEX 08/17/19 12/03/22 History breath activated powder inhaler ascorbate calcium (vitamin C) 500 500 mg PO DAILY 08/17/19 12/03/22 History mg tablet cholecalciferol (vitamin D3) 10 400 units PO DAILY 08/17/19 12/03/22 History mcg (400 unit) capsule cyclobenzaprine 10 mg tablet 10 mg PO HS #30 tabs 08/17/19 12/03/22 Rx fluticasone propionate 50 See Rx Instructions intranasal 08/17/19 12/03/22 History mcg/actuation nasal DAILY spray,suspension (Children's Flonase Allergy Relief) montelukast 10 mg tablet 10 mg PO QPM 08/17/19 12/03/22 History multivitamin 1 cap PO DAILY 08/17/19 12/03/22 History naproxen sodium 220 mg tablet See Rx Instructions PO BID 08/17/19 12/03/22 History (Aleve) amlodipine 10 mg tablet 10 mg PO DAILY #90 tabs 02/11/22 12/03/22 Rx nebivolol 20 mg tablet (Bystolic) 20 mg PO BID #180 tabs 05/07/22 12/03/22 Rx ipratropium 0.5 mg-albuterol 3 mg 3 ml inhalation Q6H PRN wheezing 08/22/22 12/03/22 Rx (2.5 mg base)/3 mL nebulization #90 mL soln diazepam 5 mg tablet 5 mg PO BID PRN 09/03/22 12/03/22 History melatonin 5 mg capsule mg PO PRN 09/03/22 12/03/22 History prednisone 20 mg tablet 20 mg PO DAILY 09/03/22 12/03/22 History calcium-magnesium 500 mg-250 mg 3 tab PO 12/03/22 12/03/22 History tablet fluticasone 500 mcg-salmeterol 50 1 inh inhalation BID #60 ea 12/04/22 12/04/22 Rx mcg/dose blistr powdr for inhalation (Wixela Inhub) furosemide 20 mg tablet (Lasix) 20 mg PO DAILY #30 tabs 12/04/22 12/04/22 Rx benralizumab 30 mg/mL subcutaneous 30 mg subcut .COMPLEX #1 mL 01/01/23 01/01/23 Rx auto-injector (Fasenra Pen) Allergies Allergy/AdvReac Type Severity Reaction Status Date / Time ceftriaxone [From Rocephin] Allergy Mild Hives Verified 12/03/22 11:15 amoxicillin Allergy Unknown RX AN Verified 12/03/22 11:15 INFANT clavulanic acid Allergy Unknown RX AN Verified 12/03/22 11:15 erythromycin base Allergy Unknown REACTION Verified 12/03/22 11:15 TO PCN AND AUGMENTIN Penicillins Allergy Unknown REACTION Verified 12/03/22 11:15 AN INFANT - UNKNOWN Tetracyclines Allergy Unknown VOMITING Verified 12/03/22 11:15 AND RASH Past Med/Surg History Medical History Asthma 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 Chest pain Chest tightness Chronic dyspnea Edema History of ventricular tachycardia Hypertension Restless leg syndrome Subacute cough Surgical History No significant past surgical history Social History Smoking Status: Never smoker Preferred Language: Djiboutian Feels Safe at Home: Yes Physical Exam Vital Signs Vital Signs - 24 hr 01/05/23 15:47 01/05/23 16:09 01/05/23 16:10 Temperature 36.4 C L Temperature Source Temporal Artery Scan Pulse Rate 99 H Pulse Rate [Right Finger] 112 H Pulse Rhythm Regular Pulse Rhythm [Right Finger] Regular Respiratory Rate 16 18 Respiratory Effort / Characteristics Non-Labored Spontaneous Non-Labored Spontaneous Respiratory Depth Normal Normal Respiratory Pattern Regular Blood Pressure 123/85 Blood Pressure [Right Arm] 134/96 Blood Pressure Mean 97 Blood Pressure Mean [Right Arm] 108 Blood Pressure Position [Right Arm] Lying Pulse Oximetry 97 93 92 Oxygen Delivery Method Room Air Room Air Room Air Sepsis Recent Fever Within 48 Hours No Sepsis New/Unexplained Change in Mental Status No Sepsis Action Taken by Nursing No Action Required 01/05/23 17:22 01/05/23 17:40 01/05/23 19:07 Temperature Temperature Source Pulse Rate Pulse Rate [Right Finger] 98 H 110 H Pulse Rhythm Pulse Rhythm [Right Finger] Regular Regular Respiratory Rate 18 18 Respiratory Effort / Characteristics Non-Labored Spontaneous Non-Labored Spontaneous Non-Labored Spontaneous Respiratory Depth Normal Normal Normal Respiratory Pattern Regular Regular Blood Pressure Blood Pressure [Right Arm] 123/97 123/97 Blood Pressure Mean Blood Pressure Mean [Right Arm] 105 105 Blood Pressure Position [Right Arm] Lying Lying Pulse Oximetry 94 94 Oxygen Delivery Method Room Air Room Air Room Air Sepsis Recent Fever Within 48 Hours Sepsis New/Unexplained Change in Mental Status Sepsis Action Taken by Nursing Physical Exam GENERAL: He is oriented to person, place, and time. He appears well-developed and well-nourished. He does not appear distressed. HENT: Exam performed. - Head: Normocephalic and atraumatic. EYES: Conjunctivae and EOM are normal. Pupils are equal, round, and reactive to light. Right eye exhibits no discharge. Left eye exhibits no discharge. No scleral icterus. NECK: Normal range of motion. Neck supple. No JVD present. CV: Normal rate, irregular rhythm, normal heart sounds and intact distal pulses. There is no peripheral edema. Palpable radial pulses bue. PULM/CHEST: Effort normal and breath sounds normal. No respiratory distress. No stridor. He has no wheezes. He has no rales. - Chest Wall: He exhibits no tenderness. ABD: The abdomen is soft. MUSC/SKEL: Normal range of motion. There is no peripheral edema, tenderness or deformity. LYMPH: No cervical adenopathy. NEURO: Motor and sensation grossly intact. SKIN: Skin is warm and dry. He is not diaphoretic. PSYCH: He has a normal mood and affect. Behavior is normal. Judgment and thought content normal. Course Course 1606: The patient was evaluated in room B5. A complete history and physical exam was performed Cardiac monitoring: An order was placed for continuous cardiac monitoring. The monitor shows a rate of 100 with atrial fibrilation rhythm interpreted by me 181: Vital signs stable. Patient has been in atrial fibrillation during his entire emergency department stay. Patient's labs are within normal limits with exception of mild elevation of troponin and mild hypokalemia. Chest x-ray shows mild pulmonary edema. Spoke with [facility] cardiology on-call Dr. Vega who states he was not aware of the patient but did give me Dr. Welching her cell phone number to contact him. 1819: Spoke with Dr. Dykes. He states that the patient had an echocardiogram done outpatient at [facility]. He states he received a call about them and states that the patient's ejection fraction was 25 to 30%. Given the patient's low ejection fracture, chest x-ray showing pulmonary edema, and new onset atrial fibrillation, the patient will be admitted to the hospital and Dr. Dykes will evaluate the patient while he is inpatient. Dr. Dykes states that the patient should be on anticoagulation, patient be started on heparin dr fam. Patient is agreement to be admitted to the hospital. Potassium was also replaced in the emergency department. Administered Medications Heparin Sodium/Dextrose (Heparin Sodium/Dextrose) 25,000 units in 500 mls @ 20 mls/hr IV .Q24H [facility]; Protocol Stop: 02/04/23 18:59 Last Admin: 01/05/23 18:53 Dose: 1,000 units/hr, 20 mls/hr Documented By: JUAN Co-signed By: JIM Discontinued Medications Heparin Sodium (Porcine) (Heparin Sod (Porcine) 1000 Unit/Ml) 1 units IV NOW ONE Stop: 01/05/23 18:54 Last Admin: 01/05/23 18:55 Dose: 4,000 units Documented By: JUAN Co-signed By: JIM Heparin Sodium/Dextrose (Heparin Iv Adult Wt-Based Low-Dose With Bolus Protocol) 1 each IV NOW [facility]; Protocol Stop: 01/05/23 18:38 Last Admin: 01/05/23 19:41 Dose: Not Given Documented By: JUAN Potassium Chloride (Potassium Chloride 10 Meq Tabcr) 40 meq PO NOW STA Stop: 01/05/23 18:38 Last Admin: 01/05/23 19:16 Dose: 40 meq Documented By: JUAN Medical Decision Making Laboratory Data Attestation: I reviewed the patient's lab results. 01/05/23 16:00 01/05/23 16:00 Lab Results 01/05/23 01/05/23 01/05/23 Range/Units 16:00 16:00 16:00 WBC 8.65 (4.8-10.8) K/ul RBC 5.41 (4.70-6.10) M/uL Hgb 15.4 (14.0-18.0) g/dl Hct 45.2 (42.0-52.0) % MCV 83.5 (80.0-100.0) fL MCH 28.5 (25.0-34.0) pg MCHC 34.1 (32.0-36.0) g/dL RDW Std Deviation 39.8 (36.4-46.3) fL RDW Coeff of Nam 13.2 (11.5-14.5) % Plt Count 302 (130-400) K/uL MPV 10.6 (9.4-12.4) fL Immature Gran % (Auto) 0.3 % Neut % (Auto) 69.2 % Lymph % (Auto) 19.7 % Jefferson % (Auto) 8.8 % Eos % (Auto) 1.7 % Baso % (Auto) 0.3 % Neut # (Auto) 5.98 (1.40-6.50) K/uL Lymph # (Auto) 1.70 (1.2-3.4) K/uL Jefferson # (Auto) 0.76 H (0.11-0.59) K/uL Eos # (Auto) 0.15 (0-0.50) K/uL Baso # (Auto) 0.03 (0-0.2) K/uL Immature Gran # (Auto) 0.03 (0.01-0.20) K/uL PT 10.9 (9.0-12.0) Seconds INR 1.0 (0.9-1.1) APTT 26.0 (21.0-31.0) Seconds PTT Ratio 0.9 Sodium 140 (136-145) mmol/L Potassium 3.3 L (3.5-5.1) mmol/L Chloride 105 (98-107) mmol/L Carbon Dioxide 28 (21-32) mmol/L Anion Gap 7 (3-11) BUN 16 (6-23) mg/dl Creatinine 1.10 (0.6-1.4) mg/dl Est Cr Clr Drug Dosing 104.7 ml/min Est GFR ( Amer) 87.1 ml/min Est GFR (Non-Af Amer) 75.2 ml/min BUN/Creatinine Ratio 14.5 (10-20) Glucose 106 H (70-99(Fasting)) mg/dl Calcium 9.0 (8.5-10.1) mg/dl Magnesium 2.2 (1.7-2.4) mg/dl Total Bilirubin 0.6 (0.2-1.0) mg/dl AST 23 (13-39) U/L ALT 18 (7-52) U/L Alkaline Phosphatase 52 (34-104) U/L Troponin I High Sens 32.7 H (0-20) pg/ml Total Protein 6.7 (6.0-8.3) gm/dl Albumin 4.0 (3.4-5.0) gm/dl Globulin 2.7 (2.5-4.0) gm/dl Albumin/Globulin Ratio 1.5 (0.9-2) SARS-CoV-2, RNA, NAAT (NEGATIVE) 01/05/23 01/05/23 Range/Units 18:25 19:11 WBC (4.8-10.8) K/ul RBC (4.70-6.10) M/uL Hgb (14.0-18.0) g/dl Hct (42.0-52.0) % MCV (80.0-100.0) fL MCH (25.0-34.0) pg MCHC (32.0-36.0) g/dL RDW Std Deviation (36.4-46.3) fL RDW Coeff of Nam (11.5-14.5) % Plt Count (130-400) K/uL MPV (9.4-12.4) fL Immature Gran % (Auto) % Neut % (Auto) % Lymph % (Auto) % Jefferson % (Auto) % Eos % (Auto) % Baso % (Auto) % Neut # (Auto) (1.40-6.50) K/uL Lymph # (Auto) (1.2-3.4) K/uL Jefferson # (Auto) (0.11-0.59) K/uL Eos # (Auto) (0-0.50) K/uL Baso # (Auto) (0-0.2) K/uL Immature Gran # (Auto) (0.01-0.20) K/uL PT (9.0-12.0) Seconds INR (0.9-1.1) APTT (21.0-31.0) Seconds PTT Ratio Sodium (136-145) mmol/L Potassium (3.5-5.1) mmol/L Chloride (98-107) mmol/L Carbon Dioxide (21-32) mmol/L Anion Gap (3-11) BUN (6-23) mg/dl Creatinine (0.6-1.4) mg/dl Est Cr Clr Drug Dosing ml/min Est GFR ( Amer) ml/min Est GFR (Non-Af Amer) ml/min BUN/Creatinine Ratio (10-20) Glucose (70-99(Fasting)) mg/dl Calcium (8.5-10.1) mg/dl Magnesium (1.7-2.4) mg/dl Total Bilirubin (0.2-1.0) mg/dl AST (13-39) U/L ALT (7-52) U/L Alkaline Phosphatase (34-104) U/L Troponin I High Sens 35.3 H (0-20) pg/ml Total Protein (6.0-8.3) gm/dl Albumin (3.4-5.0) gm/dl Globulin (2.5-4.0) gm/dl Albumin/Globulin Ratio (0.9-2) SARS-CoV-2, RNA, NAAT NEGATIVE (NEGATIVE) Imaging Data Attestation: I personally reviewed and interpreted this imaging study as follows: Radiologist's Impression: Chest X-Ray 01/05/23 15:50 SINGLE VIEW CHEST CLINICAL HISTORY: Atypical chest pain FINDINGS: An AP, portable, upright chest radiograph is compared to study dated 11/10/2022 and correlated with chest CT dated 12/02/2022. The heart is enlarged. There is prominence of the pulmonary vasculature. The lungs and pleural spaces are clear noting bibasilar atelectasis. No pneumothorax is seen. The bony thorax is grossly intact. IMPRESSION: Cardiomegaly with prominence of the pulmonary vasculature. Correlate clinically for evidence of fluid overload/mild congestive change. ACT 112: Negative or not required by law. Electronically signed by: Reji Lauren M.D. 01/05/2023 4:59 PM ECG Data Attestation: I personally reviewed and interpreted this ECG as follows: Additional Comments: EKG #1 at 1552: Atrial fibrillation with rate of 100. QRS 106. QTc 503. No ST elevation or ST depression. PVCs present. EKG #2 at 1553: Atrial fibrillation with a rate of 90. QRS [address] elevation or ST depression. PVCs present. [facility] Narrative 1606: The patient was evaluated in room B5. A complete history and physical exam was performed Cardiac monitoring: An order was placed for continuous cardiac monitoring. The monitor shows a rate of 100 with atrial fibrilation rhythm interpreted by me 1816: Vital signs stable. Patient has been in atrial fibrillation during his entire emergency department stay. Patient's labs are within normal limits with exception of mild elevation of troponin and mild hypokalemia. Chest x-ray shows mild pulmonary edema. Spoke with [facility] cardiology on-call Dr. Vega who states he was not aware of the patient but did give me Dr. Welching her cell phone number to contact him. 1820: Spoke with Dr. Dykes. He states that the patient had an echocardiogram done outpatient at [facility]. He states he received a call about them and states that the patient's ejection fraction was 25 to 30%. Given the patient's low ejection fracture, chest x-ray showing pulmonary edema, and new onset atrial fibrillation, the patient will be admitted to the hospital and Dr. Dykes will evaluate the patient while he is inpatient. Dr. Dykes states that the patient should be on anticoagulation, patient be started on heparin drip. Patient is agreement to be admitted to the hospital. Potassium was also replaced in the emergency department. Impression & Plan Atrial fibrillation, Congestive heart failure Discharge Plan Visit Data Chief Complaint: Cardiac Assessment Stated Complaint: REF BY CARDI, ABNORMAL LABS,A FIB ED Provider: Jossue Vasquez Discharge Problem: Atrial fibrillation, Congestive heart failure Patient Disposition: Admitted As Inpatient Forms Stand Alone Forms: My [facility] [employer] Prescriptions Prescriptions: No Action naproxen sodium [Aleve] 220 mg tablet See Rx Instructions PO BID Label Comments: ae directed as needed PO BID; Rx Instructions: ae directed as needed PO BID; albuterol sulfate 90 mcg/actuation aerosol powdr breath activated 1 puffs INH .COMPLEX Label Comments: 1 inh INH as needed; Rx Instructions: 1 inh INH as needed; cyclobenzaprine 10 mg tablet 10 mg PO HS Qty: 30 0RF fluticasone propionate [Children's Flonase Allergy Rlf] 50 mcg/actuation spray,suspension See Rx Instructions INTNAS DAILY Label Comments: 1-2sprays in each nostril daily INTNAS DAILY; Rx Instructions: 1-2sprays in each nostril daily INTNAS DAILY; montelukast 10 mg tablet 10 mg PO QPM multivitamin capsule 1 cap PO DAILY ascorbate calcium (vitamin C) 500 mg tablet 500 mg PO DAILY cholecalciferol (vitamin D3) 400 unit capsule 400 units PO DAILY Bystolic 20 mg tablet 20 mg PO BID Qty: 180 3RF calcium-magnesium 500-250 mg tablet 3 tab PO prednisone 20 mg tablet 20 mg PO DAILY diazepam 5 mg tablet 5 mg PO BID PRN melatonin 5 mg capsule PO PRN furosemide [Lasix] 20 mg tablet 20 mg PO DAILY Qty: 30 2RF fluticasone propion-salmeterol [Wixela Inhub] 500-50 mcg/dose blister with device 1 inh inhalation BID Qty: 60 2RF Fasenra Pen 30 mg/mL auto-injector 30 mg subcut .COMPLEX Qty: 1 9RF Rx Instructions: 30 mg subcutaneously; Inject 30 mg subcutaneously every 4 weeks x 3 doses (loading dose), then inject 30 mg subcutaneously every 8 weeks (maintenance dose) Authorization dates 11/23/2022 - 12/28/2023 amlodipine 10 mg tablet 10 mg PO DAILY Qty: 90 3RF ipratropium-albuterol 0.5 mg-3 mg(2.5 mg base)/3 mL solution for nebulization 3 ml inhalation Q6H PRN (Reason: wheezing) Qty: 90 1RF Referrals Referrals: Amrit Alvarez MD [Primary Care Provider] -
--- NOTE | 2023-01-05 21:01 | History & Physical Report ---
Date of Service January 05, 2023 Assessment & Plan (1) Atrial fibrillation: (2) Congestive heart failure: (3) 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: (4) History of COVID-19: (5) Subacute cough: (6) Restless leg syndrome: (7) Hypertension: (8) Hypokalemia: (9) AIVR (accelerated idioventricular rhythm): (10) Elevated troponin: (11) Insomnia: Plan New onset atrial fibrillation/initially RVR, now controlled rate/elevated troponin/hypertension/CHF- The patient will be admitted to telemetry for serial cardiac enzymes, serial EKG's, cardiac rhythm monitoring. Troponin mildly elevated at 35.3, likely function of brief episode of A-fib with RVR, and/or supply demand mismatch Continue nebivolol 20 mg p.o. twice daily, changed to metoprolol tartrate 100 mg p.o. twice daily per formulary interchange Continue furosemide 20 mg daily We will need to increase potassium chloride supplement from 10 mEq daily to 20 mill equivalents p.o. daily, and /or add spironolactone Potassium 3.3 upon admission. Given 40 mEq p.o. by the ED, and will give additional 40 mEq p.o. now. Patient did have echocardiogram done in the outpatient setting, with no reading available at this time Since patient is stable at this time, will leave to cardiology in the a.m. after read of echocardiogram how they want to adjust furosemide, potassium and/or spironolactone We will hold amlodipine, in anticipation of changing to negative inotrope and/or increasing dosing of current negative inotropes in the a.m. Asthma/presumptive CLAUDIA- Patient follows with pulmonology Dr. Early, and reportedly is being considered for Fasenra injections. Continue montelukast, and routine inhalers albuterol and fluticasone/albuterol DuoNebs every 4 hours as needed Chronic cough- Differential including reflux, asthma, postnasal drip etc. Continue asthma treatment per his photographer helper as noted GERD- Start famotidine 20 mg p.o. twice daily, which she has been on in the past Insomnia/RLS- Continue at bedtime dosing of melatonin, cyclobenzaprine and diazepam History of Present Illness Chief Complaint: The patient is referred to the emergency department by cardiology Dr. Velasquez Ventura after having a preoffice visit echocardiogram revealed new onset atrial fibrillation with RVR. Primary Care Provider: Amrit Alvarez MD The patient is a 57-year-old male with a past medical history including steroid- dependent asthma, lower extremity edema, COVID-19 on 08/14, history of V. tach, RLS, hypertension, asthma, insomnia, hypertension, AIVR, concussion and history of asthma exacerbations. He was referred to the emergency department by cardiology today due to atrial fibrillation with RVR being detected on routine preoffice visit echocardiogram. Upon arrival to the emergency department, the patient was in atrial fibrillation with controlled rate. He reports that he has had worsening issues with asthma exacerbations and breathing in general ever s mannie having had COVID-19 infection in July 2022. He has been on multiple prednisone courses, with most recent being 2 weeks ago. He uses his albuterol HFA 4 times daily. He has a persistent irritant cough over the past several months as well. He has had issues with reflux in the past, which she has not taken medications for recently, but did actually take a single dose of Pepcid yesterday. Significant abnormal laboratories: Potassium 3.3 with normal magnesium 2.2, glucose 106, troponin 35.3. Chest x-ray shows cardiomegaly with suggestion of possible early CHF EKG showed atrial fibrillation with controlled rate of 90 The patient was started on heparin drip by the ED Allergies Allergy/AdvReac Type Severity Reaction Status Date / Time ceftriaxone [From Rocephin] Allergy Mild Hives Verified 12/03/22 11:15 amoxicillin Allergy Unknown RX AN Verified 12/03/22 11:15 INFANT clavulanic acid Allergy Unknown RX AN Verified 12/03/22 11:15 INFANT erythromycin base Allergy Unknown REACTION Verified 12/03/22 11:15 TO PCN AND AUGMENTIN Penicillins Allergy Unknown REACTION Verified 12/03/22 11:15 AN - UNKNOWN Tetracyclines Allergy Unknown VOMITING Verified 12/03/22 11:15 AND RASH banana AdvReac Vomiting Unverified 01/05/23 21:19 Home Medications Medication Instructions Recorded Confirmed Type albuterol sulfate 90 mcg/actuation 1 puffs inhalation .COMPLEX PRN 08/17/19 01/05/23 History breath activated powder inhaler Shortness Of Breath Or Wheezing ascorbate calcium (vitamin C) 500 500 mg PO DAILY 08/17/19 01/05/23 History mg tablet cholecalciferol (vitamin D3) 10 400 units PO DAILY 08/17/19 01/05/23 History mcg (400 unit) capsule cyclobenzaprine 10 mg tablet 10 mg PO HS #30 tabs 08/17/19 01/05/23 Rx fluticasone propionate 50 See Rx Instructions intranasal 08/17/19 01/05/23 History mcg/actuation nasal DAILY spray,suspension (Children's Flonase Allergy Relief) montelukast 10 mg tablet 10 mg PO QAM 08/17/19 01/05/23 History amlodipine 10 mg tablet 10 mg PO DAILY #90 tabs 02/11/22 01/05/23 Rx nebivolol 20 mg tablet (Bystolic) 20 mg PO BID #180 tabs 05/07/22 01/05/23 Rx diazepam 5 mg tablet 5 mg PO HS 09/03/22 01/05/23 History melatonin 5 mg capsule 5 mg PO HS 09/03/22 01/05/23 History fluticasone 500 mcg-salmeterol 50 1 inh inhalation BID #60 ea 12/04/22 01/05/23 Rx mcg/dose blistr powdr for inhalation (Wix[facility] Inhub) furosemide 20 mg tablet (Lasix) 20 mg PO DAILY #30 tabs 12/04/22 01/05/23 Rx calcium carb-Ca gluc 500 mg 3 tab PO DAILY 01/05/23 01/05/23 History calcium-magnesium ox-Mg gluc 250 mg tablet (Calcium Magnesium) multivitamin 1 tab PO DAILY 01/05/23 01/05/23 History Past Med/Surg History Medical History Asthma 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 Chest pain Chest tightness Chronic dyspnea Edema History of ventricular tachycardia Hypertension Restless leg syndrome Subacute cough Surgical History No significant past surgical history Social History Smoking Status: Never smoker Hx Alcohol Use: No Hx Substance Use: No Preferred Language: [facility] Aide Required: No Beliefs That Will Affect Care: None Current Living Situation: Spouse Other Information That Helps Us Care for You: No Feels Safe at Home: Yes Safety Concerns: Feels Safe At This Time Assistive Devices: None Review of Systems Review of Systems: The patient denies chest pain, palpitations, sore throat, fevers, chills, sweats, nausea, vomiting, diarrhea , constipation, abdominal pain, pelvic pain, blood in urine or stool, dysuria, urinary frequency or urgency, lightheadedness, dizziness, headache, memory loss, loss of consciousness, rash, abnormal bruising or bleeding, imbalance, focal or generalized weakness, numbness or tingling in arms or legs, generalized arthralgias or myalgias, back or neck pain, or night sweats. The review of systems is otherwise negative other than for that already noted above, and at least 10 systems have been reviewed. Physical Exam Physical Exam: The patient is awake, alert and oriented 3, well developed and well nourished, normocephalic and atraumatic, lying in bed and in no acute distress. HEENT--PERRL, EOMI, mucous membranes and oropharynx normal. Neck--supple. No JVD. No bruits. Thyroid normal, trachea midline, no adenopathy. Heart--normal S1 and S2. No murmurs, rubs or gallops. Lungs--decreased breath sounds throughout, with scattered wheeze. No respiratory distress, no accessory muscle use. Abdomen--normal bowel sounds and soft. Nontender. Nondistended, no hernias or masses, no organomegaly. Obese Extremities--1+ bilateral pretibial pitting edema Dermatologic--normal skin turgor, normal color, no abnormal lymph nodes, no rash. Neurologic--cranial nerves II through XII grossly intact. Rheumatologic--normal range of motion. Psychiatric--normal affect. Results & Data Results & Data ([facility]) Vital Signs (Past 12 Hours) Vital Signs Temp Pulse Pulse Resp BP BP Pulse Ox 01/05/23 20:44 82 01/05/23 16:29 93 H 01/05/23 19:07 110 H 18 123/97 94 01/05/23 17:40 01/05/23 17:22 98 H 18 123/97 94 01/05/23 16:10 112 H 18 134/96 92 01/05/23 16:09 93 01/05/23 15:47 36.4 C L 99 H 16 123/85 97 O2 Del Method 01/05/23 20:44 01/05/23 16:29 01/05/23 19:07 Room Air 01/05/23 17:40 Room Air 01/05/23 17:22 Room Air 01/05/23 16:10 Room Air 01/05/23 16:09 Room Air 01/05/23 15:47 Room Air Laboratory Results Laboratory Results WBC 8.65 K/ul (4.8-10.8) 01/05/23 16:00 RBC 5.41 M/uL (4.70-6.10) 01/05/23 16:00 Hgb 15.4 g/dl (14.0-18.0) 01/05/23 16:00 Hct 45.2 % (42.0-52.0) 01/05/23 16:00 MCV 83.5 fL (80.0-100.0) 01/05/23 16:00 MCH 28.5 pg (25.0-34.0) 01/05/23 16:00 MCHC 34.1 g/dL (32.0-36.0) 01/05/23 16:00 RDW Std Deviation 39.8 fL (36.4-46.3) 01/05/23 16:00 RDW Coeff of Nam 13.2 % (11.5-14.5) 01/05/23 16:00 Plt Count 302 K/uL (130-400) 01/05/23 16:00 MPV 10.6 fL (9.4-12.4) 01/05/23 16:00 Immature Gran % (Auto) 0.3 % 01/05/23 16:00 Neut % (Auto) 69.2 % 01/05/23 16:00 Lymph % (Auto) 19.7 % 01/05/23 16:00 [place] % (Auto) 8.8 % 01/05/23 16:00 Eos % (Auto) 1.7 % 01/05/23 16:00 Baso % (Auto) 0.3 % 01/05/23 16:00 Neut # (Auto) 5.98 K/uL (1.40-6.50) 01/05/23 16:00 Lymph # (Auto) 1.70 K/uL (1.2-3.4) 01/05/23 16:00 [place] # (Auto) 0.76 K/uL (0.11-0.59) H 01/05/23 16:00 Eos # (Auto) 0.15 K/uL (0-0.50) 01/05/23 16:00 Baso # (Auto) 0.03 K/uL (0-0.2) 01/05/23 16:00 Immature Gran # (Auto) 0.03 K/uL (0.01-0.20) 01/05/23 16:00 PT 10.9 Seconds (9.0-12.0) 01/05/23 16:00 INR 1.0 (0.9-1.1) 01/05/23 16:00 APTT 26.0 Seconds (21.0-31.0) 01/05/23 16:00 PTT Ratio 0.9 01/05/23 16:00 Sodium 140 mmol/L (136-145) 01/05/23 16:00 Potassium 3.3 mmol/L (3.5-5.1) L 01/05/23 16:00 Chloride 105 mmol/L (98-107) 01/05/23 16:00 Carbon Dioxide 28 mmol/L (21-32) 01/05/23 16:00 Anion Gap 7 (3-11) 01/05/23 16:00 BUN 16 mg/dl (6-23) 01/05/23 16:00 Creatinine 1.10 mg/dl (0.6-1.4) 01/05/23 16:00 Est Cr Clr Drug Dosing 104.7 ml/min 01/05/23 16:00 Est GFR ( Amer) 87.1 ml/min 01/05/23 16:00 Est GFR (Non-Af Amer) 75.2 ml/min 01/05/23 16:00 BUN/Creatinine Ratio 14.5 (10-20) 01/05/23 16:00 Glucose 106 mg/dl (70-99(Fasting)) H 01/05/23 16:00 Calcium 9.0 mg/dl (8.5-10.1) 01/05/23 16:00 Magnesium 2.2 mg/dl (1.7-2.4) 01/05/23 16:00 Total Bilirubin 0.6 mg/dl (0.2-1.0) 01/05/23 16:00 AST 23 U/L (13-39) 01/05/23 16:00 ALT 18 U/L (7-52) 01/05/23 16:00 Alkaline Phosphatase 52 U/L (34-104) 01/05/23 16:00 Troponin I High Sens 33.1 pg/ml (0-20) H 01/05/23 22:34 Total Protein 6.7 gm/dl (6.0-8.3) 01/05/23 16:00 Albumin 4.0 gm/dl (3.4-5.0) 01/05/23 16:00 Globulin 2.7 gm/dl (2.5-4.0) 01/05/23 16:00 Albumin/Globulin Ratio 1.5 (0.9-2) 01/05/23 16:00 SARS-CoV-2, RNA, NAAT NEGATIVE (NEGATIVE) 01/05/23 19:11 Impressions Chest X-Ray 01/05/23 15:50 SINGLE VIEW CHEST CLINICAL HISTORY: Atypical chest pain FINDINGS: An AP, portable, upright chest radiograph is compared to study dated 11/10/2022 and correlated with chest CT dated 12/02/2022. The heart is enlarged. There is prominence of the pulmonary vasculature. The lungs and pleural spaces are clear noting bibasilar atelectasis. No pneumothorax is seen. The bony thorax is grossly intact. IMPRESSION: Cardiomegaly with prominence of the pulmonary vasculature. Correlate clinically for evidence of fluid overload/mild congestive change. ACT 112: Negative or not required by law. Electronically signed by: Reji Lauren M.D. 01/05/2023 4:59 PM Code Status & VTE Plan Code Status Full code VTE Prophylaxis Plan VTE Prophylaxis will be ordered: Yes PG Care Time/CCT Total # of Minutes Spent Total Time Spent with Patient: Total time spent is greater than 50% in coordination of care (as documented) at patient's floor/unit and/or counseling patient: Coding Level of Care Code 65949 INT INP/OBS CARE 3/75MIN Diagnoses Atrial fibrillation I48.91 Atrial fibrillation type: unspecified Congestive heart failure I50.9 Heart failure chronicity: unspecified Heart failure type: unspecified 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 J45.909; Z79.52 History of COVID-19 Z86.16 Subacute cough R05.2 Restless leg syndrome G25.81 Hypertension I10 Hypokalemia E87.6 AIVR (accelerated idioventricular rhythm) I44.2 Elevated troponin R77.8 Insomnia G47.00 Insomnia type: unspecified (1) Atrial fibrillation Atrial fibrillation type: unspecified Qualified Code(s): I48.91 - Unspecified atrial fibrillation (2) Congestive heart failure Heart failure chronicity: unspecified Heart failure type: unspecified Qualified Code(s): I50.9 - Heart failure, unspecified (3) Insomnia Insomnia type: unspecified Qualified Code(s): G47.00 - Insomnia, unspecified
[2023-01-05] MEDS ORDERED: POTASSIUM CHLORIDE CRTAB 20 MEQ TABCR PO STA (21:03)
[2023-01-05] MEDS ORDERED: FAMOTIDINE 20 MG TAB PO ONE (21:15)
[2023-01-05] MEDS ORDERED: ONDANSETRON INJ 2 MG/ML 2 ML VIAL IV PRN (22:03)
[2023-01-05] MEDS ORDERED: ALBUTEROL HFA 8 GM INHALER INH PRN (23:26)
[2023-01-05] MEDS ORDERED: diazePAM 5 MG TABLET PO ONE (23:59)
[2023-01-06] MEDS: CYCLOBENZAPRINE HCL 10 MG TAB PO SCH ×2 (00:24→21:44)
[2023-01-06] MEDS: METOPROLOL TARTRATE 100 MG TAB PO SCH ×2 (00:24→07:56)
[2023-01-06] MEDS: MELATONIN 3 MG TAB PO SCH ×2 (00:25→21:42)
[2023-01-06 01:17] LABS: Partial Thromboplastin Ratio 1.2; Partial Thromboplastin Time 31.8 Seconds (21.0-31.0)
[2023-01-06] MEDS ORDERED: HEPARIN SOD (PORCINE) 1000 UNIT/ML IV ONE ×2 (01:45→10:30)
[2023-01-06 07:13] LABS: Basophils # (auto) 0.02 K/uL (0-0.2); Basophils % (auto) 0.3 %; Eosinophils # (auto) 0.21 K/uL (0-0.50); Eosinophils % (auto) 2.6 %; Hematocrit (blood only) 46.9 % (42.0-52.0); Hemoglobin 15.6 g/dl (14.0-18.0); Immature Granulocytes # (auto) 0.03 K/uL (0.01-0.20); Immature Granulocytes % (auto) 0.4 %; Lymphocytes # (auto) 1.98 K/uL (1.2-3.4); Lymphocytes % (auto) 24.9 %; Mean Corpuscular Hemoglobin 28.5 pg (25.0-34.0); Mean Corpuscular Hgb Conc 33.3 g/dL (32.0-36.0); Mean Corpuscular Volume 85.6 fL (80.0-100.0); Mean Platelet Volume 10.7 fL (9.4-12.4); Monocytes # (auto) 0.68 K/uL (0.11-0.59); Monocytes % (auto) 8.5 %; Neutrophils # (auto) 5.04 K/uL (1.40-6.50); Neutrophils % (auto) 63.3 %; Platelet Count 296 K/uL (130-400); RDW Coefficient of Variation 13.2 % (11.5-14.5); RDW Standard Deviation 40.9 fL (36.4-46.3); Red Blood Count 5.48 M/uL (4.70-6.10); White Blood Count 7.96 K/ul (4.8-10.8)
[2023-01-06 07:25] LABS: Albumin Level 4.1 gm/dl (3.4-5.0); BUN Creatinine Ratio 13.7 (10-20); Creatinine Clr Calc Pharmacy 113.4 ml/min; Est GFR (African American) 95.5 ml/min; Est GFR (Non-African American) 82.4 ml/min; Magnesium 2.3 mg/dl (1.7-2.4); Phosphorus 3.4 mg/dl (2.5-4.9); Potassium 3.8 mmol/L (3.5-5.1)
[2023-01-06 07:31] LABS: Troponin I High Sensitivity 32.7 pg/ml (0-20)
[2023-01-06 07:48] LABS: INR 1.1 (0.9-1.1); Prothrombin Time 11.4 Seconds (9.0-12.0)
[2023-01-06] MEDS: FAMOTIDINE 20 MG TAB PO SCH ×2 (07:54→21:43)
[2023-01-06] MEDS: POTASSIUM CHLORIDE CRTAB 20 MEQ TABCR PO SCH (07:54)
[2023-01-06] MEDS: CHOLECALCIFEROL 400 UNITS 10 MCG TAB PO SCH (07:55)
[2023-01-06] MEDS: ASCORBIC ACID 500 MG TAB PO SCH (07:55)
[2023-01-06] MEDS: ASPIRIN 81 MG ECTAB PO SCH (07:55)
[2023-01-06] MEDS: MONTELUKAST SODIUM 10 MG TABLET PO SCH (07:55)
--- NOTE | 2023-01-06 07:55 | Progress Note ---
Date of Service January 06, 2023 Assessment & Plan (1) Atrial fibrillation: Plan: This is a 57 y/o M with a history of HTN, CHF, steroid dependent asthma, and ventricular arrhythmias presenting with new onset Afib with RVR, referred by his vice president of development. New onset AFIB with RVR -Continue to monitor on telemetry -Rate controlled with Carvedilol 25 mg BID, discontinued metoprolol 100 mg BID -Anticoagulate switch from heparin drip 1,200 units/hr to apixaban -Monitor cardiac enzymes (troponin trend), currently downtrending at 32.7 (peak was 35.3) Hypokalemia - Last reading was 3.8, up from 3.3 - Continue KCL CHF - As per vice president of development: Carvedilol 25 mg BID Valsartan/Sacubitril 51/ 1 tab - Continue furosemide 20 mg daily (home med) HTN - See plan above for CHF - Recommend sleep study in lab Asthma, subacute cough - Followed by Pulmonology, Dr. Early - Continue Montelukast - Continue Fluticasone/albuterol - Continue DuoNeb q4h Restless leg syndrome/ insomnia - Continue Melatonin 4.5 mg GERD -Continue Ondanstron 4 mg Atrial fibrillation type: unspecified Qualified Code(s): I48.91 - Unspecified atrial fibrillation Admission and Anticipated Discharge Date Admission Date: January 05, 2023 Supervising Physician Co-Signing Physician Notes I personally examined the patient and verified all khalil points of history and exam, discussed case, and agree with decision making with C danuta Ment MS2 breathing still a little off. coughing. extensive discussions w pt and , later discussed with cardiology input greatly appreciated. 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 Subjective This is a 57 y/o M with a history of HTN, CHF, steroid dependent asthma, mild hypokalemia and ventricular arrhythmias presenting with new onset Afib with RVR, referred by his vice president of development. The patient felt no chest discomfort yesterday (01/05/23) and had a routine echo scheduled. The Afib was incidentally found by his vice president of development who referred him to the ED. The patient has a history of hypokalemia that was found during a similar cardiac episode in 2016. At the time he was put on KCL supplementation, and was taken off when his potassium levels normalized. He was recently (in the past week) put on furosemide, which prompted his PCP to check his potassium levels given his history. They came back low and he was given a dose of KCL. He has chronic asthma that was controlled with a rescue inhaler only until this past July when he was caught COVID. This exacerbated his symptoms and since has needed to take Montelukast and DuoNeb, and uses his inhaler 4x/day. He also recently had pneumonia 11/13, where he was given a course of prednisone. He states that since his 30s a mild viral illness quickly progresses to pneumonia which has not helped his breathing. He states that his has been able to hear his wheezing more recently. He does feel some chest discomfort from time to time which he recently attributed to muscle pain. The patient has restless leg syndrome for which he takes cyclobenzaprine for. However, he did not recognize this as chest pain, or palpitations. He is not SOB compared to his normal baseline, he has no fever, chills, or lightheadedness. He has no GI discomfort and no dysuria, diarrhea or constipation. He has having no leg pain or edema. Review of Systems Review of Systems: All systems reviewed & are unremarkable except as noted in Subjective Physical Exam Constitutional: WD/WN, vitals as above well developed, well nourished and + well hydrated; no acute distress Eyes: PERRL, conjunctivae normal, anicteric sclerae Respiratory: normal respiratory effort (Speaking in full sentences, but coug kaycee a little after a deep inhalation) and + cough Auscultation: lungs clear to auscultation bilaterally and + diminished lung sounds Did not appreciate any wheezing. The dimished lung sounds could be from the patient trying to avoid inhaling too deeply as it would induce a cough. Cardiovascular: Rate/Rhythm: regular rate Vessels: normal peripheral pulses; no JVD Extremities: normal capillary refill; no calf tenderness, no pedal edema and no edema Skin: no rashes, warm and dry Psychiatric: A+Ox3, euthymic affect Eye Contact: good eye contact Results & Data ([facility]) Vital Signs (Past 12 Hours) Vital Signs Temp Pulse Pulse Resp BP Pulse Ox O2 Del Method 01/06/23 07:33 36.4 C L 109 H 18 125/85 96 Room Air 01/06/23 04:48 36.8 C 79 18 107/80 96 Room Air 01/05/23 22:16 93 H 01/05/23 22:03 Room Air 01/05/23 22:10 36.8 C 87 16 139/82 97 Room Air 01/05/23 21:14 98 H 18 121/89 95 Room Air 01/05/23 20:44 82 Laboratory Results K+ this morning (01/06/23) at 3.8 (up from 01/05/23 at 3.3)
[2023-01-06] MEDS: FLUTICASONE PROPIONATE NA SPR 16 GM BTL NAE SCH (07:56)
[2023-01-06] MEDS: FUROSEMIDE 20 MG TAB PO SCH (07:56)
[2023-01-06] MEDS: MULTIVITAMIN TAB PO SCH (07:56)
[2023-01-06] MEDS: FLUTICASONE/VILANTEROL 200/25MCG 14 PUFFS/INHALER INH SCH (07:57)
[2023-01-06] MEDS ORDERED: NON-FORMULARY MEDICATION (Ca Carb-Ca Gluc-Mg Ox-Mg Gluco [Calcium Magnesium] 500 mg calciu PO SCH (09:00)
--- NOTE | 2023-01-06 09:32 | Cardiology Consultation ---
Date of Consultation January 06, 2023 Assessment & Plan (1) Congestive heart failure: (2) Cardiomyopathy: (3) Atrial fibrillation: (4) Anticoagulant long-term use: (5) Elevated troponin: (6) History of COVID-19: (7) Hypertension: (8) AIVR (accelerated idioventricular rhythm): Plan 1. Congestive heart failure: He presents with worsening shortness of breath and dyspnea on exertion and appears to be in mild congestive heart failure. It was not obvious however on chest x-ray he seems to have some fluid retention and he does feel better now with diuresis. Although he probably has lung disease as a contributor a lot of his current symptoms are probably due to fluid retention and heart failure. I would continue to diurese for now. 2. Cardiomyopathy: Based on his echocardiogram (verbal report, I have not seen the official report) he has significant left ventricular dysfunction. This is consistent with cardiomegaly seen on CT scan. His cardiomyopathy may well be due to atrial fibrillation, or could be due to COVID-19 or some other cause. At this point I would rate control his atrial fibrillation, he is now on metoprolol tartrate which I would switch to carvedilol although that might not control rate quite as well and we may need to add digoxin. He was started on anticoagulation that should be continued. I am hopeful that with rate control his cardiomyopathy will improve. I do want to start him on Entresto as well. I am going to draw standard laboratory studies for reversible causes of cardiomyopathy. 3. Atrial fibrillation: His echocardiogram from August 21, 2022 shows atrial fibrillation with a rapid heart rate, that was when he presented with COVID-19. His symptoms are relatively minor and perhaps he has been in that arrhythmia since which could explain his cardiomyopathy. His [id number] score was only 1 in July, , but now it with congestive heart failure and with the thought that we will probably try to get him back into sinus rhythm in the near future he should be anticoagulated. He is currently on heparin. 4. Anticoagulation: I would continue anticoagulation for the time being, I doubt we will want to pursue invasive evaluation but for now I would continue heparin before starting an oral agent. When we switch to an oral agent I would use Eliquis 5 mg twice a day. 5. Elevated troponin: His troponin is minimally elevated and has remained at about the same level since presentation. This may be demand ischemia or it may represent a component of myocardial damage such as myocarditis, it is not consistent with ischemia. I will repeat a troponin measurement tomorrow as we correct his heart rate and his heart failure hopefully this will normalize. 6. COVID-19: It is possible his COVID 19 diagnosis in July 2022 was related to his current presentation, either by helping initiate atrial fibrillation (which had not been seen before) or perhaps independently causing the cardiomyopathy. There is no specific treatment for this. 7. Hypertension: He has a long history of hypertension which has been well controlled. I suspect the heart for medications that we are going to place him on will control his blood pressure as well. I would prefer to use beta-blockade and Entresto rather than calcium channel blockers. 8. AIVR: He has a history of AIVR, we have not seen that this admission that probably is not related to his current presentation. That has been minimally symptomatic in the past. History of Present Illness Reason for Consultation: New onset atrial fibrillation, cardiomyopathy Attending Physician: Amrit Stapleton DO History of Present Illness This is a 57-year-old gentleman with a history of hypertension and asthma who presented to [facility] in March 2017 with chest discomfort. Evaluation included stress echocardiography which was negative for ischemia, suggesting the chest discomfort was noncardiac. Echocardiography demonstrated normal left ventricular function. On telemetry however he was observed to have a wide complex rhythm, this was not associated with lightheadedness or palpitations (although he does describe symptoms of lightheadedness and palpitations at times but not during this arrhythmia). He was observed on telemetry to have periods of a ventricular rhythm with a heart rate in the 50s to 70s, although sometimes irregular and at times a little bit faster. A follow-up echocardiogram done July 15, 2018 showed a mildly dilated left ventricle with normal systolic function and ejection fraction 55 to 60%. He did have mild left ventricular hypertrophy. He was somewhat hypokalemic in the emergency room and he had been taking potassium, he was on hydrochlorothiazide and was taking lisinopril for hypertension. He was not on a beta fish or an antiarrhythmic. He was discharged with an event monitor for nursing home monitoring. He had a number of automatic recordings for ventricular arrhythmias. The ventricular arrhythmias demonstrate an irregular pattern of varying durations, some of these more in the 100 beat per minute range, others were slower and appeared to be an accelerated ventricular rhythm in the mid 70s. They seem to occur at different times of day. The longest episode that I saw was on 06/23/2017 at about 6 PM, this lasted approximately 30 seconds, was quite irregular and there were some supraventricular beats conducted during the arrhythmia. The heart rate was a little over 100 on average but quite irregular. I don't believe there were any symptoms. With these findings I added Bystolic 10 mg daily to his regimen and discontinued the lisinopril. His Bystolic has been gradually titrated, in part for blood pressure control, to his current dose of 40 mg daily. He was in the emergency room June 27, 2018 when a ceramic object fell on his head and he had a concussion, but it was not from him falling, etc. due to an arrhythmia. He had a prolonged recovery from that event. Ultimately he went back to work full-time. He was feeling fatigued a lot of the time and was not sleeping well at night which had been going on for several years and he felt that that made him tired during the day. His tells him that he snores intermittently but not all of the time. I arranged a sleep study which was done at home on March 23, 2020, it was somewhat abnormal but not to the point where referral to pulmonary for CPAP seemed warranted. He was diagnosed with asthma which was felt a cause of his dyspnea on exertion. He also had COVID in July 2022 and was seen in the emergency room on August 21, 2022. He was not admitted, however an electrocardiogram done at the time did show atrial fibrillation with a heart rate of [address]-T abnormalities. Subsequently his symptoms of shortness of breath appeared to worsen. He was treated for asthma. Pulmonary function test December 14, 2022 were consistent with his history of asthma. He presented to [facility] as an outpatient for an echocardiogram on January 05, 2023, by verbal report that echocardiogram showed significant left ventricular dysfunction. I therefore referred him to the emergency room. In the emergency room he was noted to be in rate controlled atrial fibrillation, his initial troponin was mildly elevated to 35.3 and 3 subsequent measurements are all in about that range. His chest x-ray suggested mild congestive heart failure and cardiomegaly. At the time my evaluation in the hospital he was feeling a little bit better, he had been diuresing quite a bit and was not having difficulty with shortness of breath at rest. His palpitations however were subtle and he was really not aware of his arrhythmia. His medications were changed somewhat with a switch from Bystolic to metoprolol tartrate and amlodipine was discontinued. Allergies Allergy/AdvReac Type Severity Reaction Status Date / Time ceftriaxone [From Rocephin] Allergy Mild Hives Verified 12/03/22 11:15 amoxicillin Allergy Unknown RX AN Verified 12/03/22 11:15 clavulanic acid Allergy Unknown RX AN Verified 12/03/22 11:15 erythromycin base Allergy Unknown REACTION Verified 12/03/22 11:15 TO PCN AND AUGMENTIN Penicillins Allergy Unknown REACTION Verified 12/03/22 11:15 AN - UNKNOWN Tetracyclines Allergy Unknown VOMITING Verified 12/03/22 11:15 AND RASH banana AdvReac Vomiting Unverified 01/05/23 21:19 Home Medications Medication Instructions Recorded Confirmed Type albuterol sulfate 90 mcg/actuation 1 puffs inhalation .COMPLEX PRN 08/17/19 01/05/23 History breath activated powder inhaler Shortness Of Breath Or Wheezing ascorbate calcium (vitamin C) 500 500 mg PO DAILY 08/17/19 01/05/23 History mg tablet cholecalciferol (vitamin D3) 10 400 units PO DAILY 08/17/19 01/05/23 History mcg (400 unit) capsule cyclobenzaprine 10 mg tablet 10 mg PO HS #30 tabs 08/17/19 01/05/23 Rx fluticasone propionate 50 See Rx Instructions intranasal 08/17/19 01/05/23 History mcg/actuation nasal DAILY spray,suspension (Children's Flonase Allergy Relief) montelukast 10 mg tablet 10 mg PO QAM 08/17/19 01/05/23 History amlodipine 10 mg tablet 10 mg PO DAILY #90 tabs 02/11/22 01/05/23 Rx nebivolol 20 mg tablet (Bystolic) 20 mg PO BID #180 tabs 05/07/22 01/05/23 Rx diazepam 5 mg tablet 5 mg PO HS 09/03/22 01/05/23 History melatonin 5 mg capsule 5 mg PO HS 09/03/22 01/05/23 History fluticasone 500 mcg-salmeterol 50 1 inh inhalation BID #60 ea 12/04/22 01/05/23 Rx mcg/dose blistr powdr for inhalation (Wixela Inhub) furosemide 20 mg tablet (Lasix) 20 mg PO DAILY #30 tabs 12/04/22 01/05/23 Rx calcium carb-Ca gluc 500 mg 3 tab PO DAILY 01/05/23 01/05/23 History calcium-magnesium ox-Mg gluc 250 mg tablet (Calcium Magnesium) multivitamin 1 tab PO DAILY 01/05/23 01/05/23 History Patient History Medical History Asthma 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 Chest pain Chest tightness Chronic dyspnea Edema History of ventricular tachycardia Hypertension Restless leg syndrome Subacute cough Surgical History No significant past surgical history Social History Smoking Status: Never smoker Hx Alcohol Use: No Hx Substance Use: No Preferred Language: Latvian Social Media Community Manager Required: No Beliefs That Will Affect Care: None Current Living Situation: Spouse Other Information That Helps Us Care for You: No Feels Safe at Home: Yes Safety Concerns: Feels Safe At This Time Assistive Devices: None Review of Systems Review of Systems: A review of systems was performed and is notable as in the HPI Physical Exam Physical Exam: Constitutional: Alert, cooperative and in no distress. HEENT: Unremarkable Neck: No jugular venous distention, carotid pulses are irregular but otherwise normal and equal bilaterally without bruits. Pulmonary: Clear to auscultation bilaterally. Cardiac: Irregular rhythm with no murmur, gallop or rub. Abdomen: Soft, nontender with normal bowel sounds. Extremities: No edema. Distal pulses intact. Neurologic: No focal findings. Gait is steady. Skin: No rash, ecchymoses or petechiae. Results & Data ([facility]) Vital Signs (Past 12 Hours) Vital Signs Temp Pulse Pulse Resp BP Pulse Ox O2 Del Method 01/06/23 07:33 36.4 C L 109 H 18 125/85 96 Room Air 01/06/23 04:48 36.8 C 79 18 107/80 96 Room Air 01/05/23 22:16 93 H 01/05/23 22:03 Room Air 01/05/23 22:10 36.8 C 87 16 139/82 97 Room Air Laboratory Results Cardiac Enzymes 01/05/23 01/05/23 01/05/23 Range/Units 16:00 18:25 22:34 AST 23 (13-39) U/L Troponin I High Sens 32.7 H 35.3 H 33.1 H (0-20) pg/ml 01/06/23 01/06/23 Range/Units 06:29 10:58 AST (13-39) U/L Troponin I High Sens 32.7 H 30.3 H (0-20) pg/ml Coagulation 01/05/23 01/06/23 01/06/23 Range/Units 16:00 00:30 06:29 PT 10.9 11.4 (9.0-12.0) Seconds APTT 26.0 31.8 H (21.0-31.0) Seconds 01/06/23 Range/Units 08:41 PT (9.0-12.0) Seconds APTT 37.3 H (21.0-31.0) Seconds CBC 01/05/23 01/06/23 Range/Units 16:00 06:29 WBC 8.65 7.96 (4.8-10.8) K/ul RBC 5.41 5.48 (4.70-6.10) M/uL Hgb 15.4 15.6 (14.0-18.0) g/dl Hct 45.2 46.9 (42.0-52.0) % Plt Count 302 296 (130-400) K/uL Neut # (Auto) 5.98 5.04 (1.40-6.50) K/uL Lymph # (Auto) 1.70 1.98 (1.2-3.4) K/uL [place] # (Auto) 0.76 H 0.68 H (0.11-0.59) K/uL Eos # (Auto) 0.15 0.21 (0-0.50) K/uL Baso # (Auto) 0.03 0.02 (0-0.2) K/uL Comprehensive Metabolic Panel 01/05/23 01/06/23 Range/Units 16:00 06:29 Sodium 140 141 (136-145) mmol/L Potassium 3.3 L 3.8 (3.5-5.1) mmol/L Chloride 105 106 (98-107) mmol/L Carbon Dioxide 28 30 (21-32) mmol/L BUN 16 14 (6-23) mg/dl Creatinine 1.10 1.02 (0.6-1.4) mg/dl Glucose 106 H 103 H (70-99(Fasting)) mg/dl Calcium 9.0 9.0 (8.5-10.1) mg/dl AST 23 (13-39) U/L ALT 18 (7-52) U/L Alkaline Phosphatase 52 (34-104) U/L Total Protein 6.7 (6.0-8.3) gm/dl Albumin 4.0 4.1 (3.4-5.0) gm/dl Intake and Output 01/05/23 01/06/23 01/06/23 22:59 06:59 14:59 Intake Total 150 / 590.667 440.667 / 590.667 196.0 / 196.0 Output Total 350 / 850 500 / 850 Balance -200 / -259.333 -59.333 / -259.333 196.0 / 196.0 Intake: IV 140.667 / 140.667 196.0 / 196.0 Heparin Sodium/Dextrose 25,000 140.667 / 140.667 196.0 / 196.0 units In 500 ml @ 1,200 UNITS/ HR 24 mls/hr IV .[id number] [facility] Rx #:[id number] Oral 150 / 450 300 / 450 Output: Urine 350 / 850 500 / 850 Other: # Unmeasured Voids 2 Weight 118.5 kg 118.1 kg Weight Measurement Method Standing Scale Built in [facility] Diagnostic Findings Electrocardiograms this admission were reviewed and demonstrate atrial fibrillation with a moderately rapid ventricular response and no acute changes. Telemetry was reviewed and this shows atrial fibrillation with an average heart rate of about 100 or little bit higher with very little diurnal heart rate variation. Frequent PVCs are present. PG Care Time/CCT Total # of Minutes Spent Total Time Spent with Patient: Total time spent is greater than 50% in coordination of care (as documented) at patient's floor/unit and/or counseling patient: Coding Level of Care Code INP/OBS CONSULT LVL 5, 80 MIN Diagnoses Congestive heart failure I50.9 Heart failure chronicity: unspecified Heart failure type: unspecified Cardiomyopathy I42.0 Cardiomyopathy type: dilated Atrial fibrillation I48.91 Atrial fibrillation type: unspecified Anticoagulant long-term use Z79.01 Elevated troponin R77.8 History of COVID-19 Z86.16 Hypertension I10 Hypertension type: primary hypertension AIVR (accelerated idioventricular rhythm) I44.2 (1) Congestive heart failure Heart failure chronicity: unspecified Heart failure type: unspecified Qualified Code(s): I50.9 - Heart failure, unspecified (2) Cardiomyopathy Cardiomyopathy type: dilated Qualified Code(s): I42.0 - Dilated cardiomyopathy (3) Atrial fibrillation Atrial fibrillation type: unspecified Qualified Code(s): I48.91 - Unspecified atrial fibrillation (7) Hypertension Hypertension type: primary hypertension Qualified Code(s): I10 - Essential (primary) hypertension
[2023-01-06 09:39] LABS: Partial Thromboplastin Ratio 1.4; Partial Thromboplastin Time 37.3 Seconds (21.0-31.0)
[2023-01-06] MEDS ORDERED: DIGOXIN 0.125 MG TAB PO ONE ×2 (12:47→17:30)
[2023-01-06] MEDS: HEPARIN SODIUM/DEXTROSE 25,000 UNITS/500 ML BAG IV SCH ×2 (15:38→17:42)
[2023-01-06 17:04] LABS: Partial Thromboplastin Ratio 1.6; Partial Thromboplastin Time 44.4 Seconds (21.0-31.0)
--- NOTE | 2023-01-06 19:29 | Billing Data ---
Date of Service January 06, 2023 Coding Level of Care Code 15618 SUB INP/OBS CARE 3MIN
[2023-01-06] MEDS: VALSARTAN/SACUBITRIL 51/49 MG TAB PO SCH (21:43)
[2023-01-06] MEDS: diazePAM 5 MG TABLET PO SCH (21:43)
[2023-01-06] MEDS: carvediloL 25 MG TAB PO SCH (21:44)
[2023-01-06] MEDS ORDERED: DIGOXIN 0.25 MG TAB PO ONE (22:00)
[2023-01-06 23:43] LABS: Partial Thromboplastin Ratio 1.5; Partial Thromboplastin Time 41.1 Seconds (21.0-31.0)
--- NOTE | 2023-01-07 04:32 | Electrocardiogram Report ---
Test Reason : Blood Pressure : / mmHG Vent. Rate : 090 BPM Atrial Rate : 069 BPM P-R Int : 000 ms QRS Dur : 102 ms QT Int : 392 ms P-R-T Axes : 000 -37 020 degrees QTc Int : 479 ms Atrial fibrillation with premature ventricular or aberrantly conducted complexes Left axis deviation Nonspecific T wave abnormality Abnormal ECG When compared with ECG of 21-AUG-2022 21:39, No significant change Confirmed by Jl Bedolla ([id number]) on 01/07/2023 4:32:28 AM Referred By: Confirmed By:Jl Bedolla
--- NOTE | 2023-01-07 04:57 | Electrocardiogram Report ---
Test Reason : Blood Pressure : / mmHG Vent. Rate : 104 BPM Atrial Rate : 111 BPM P-R Int : 000 ms QRS Dur : 104 ms QT Int : 402 ms P-R-T Axes : 000 001 019 degrees QTc Int : 528 ms Atrial fibrillation with rapid ventricular response with premature ventricular or aberrantly conducte d complexes Prolonged QT Abnormal ECG When compared with ECG of 05-JAN-2023 15:53, No significant change was found Confirmed by Jl Bedolla ([id number]) on 01/07/2023 4:57:30 AM Referred By: Velasquez Ventura Confirmed By:Jl Bedolla
[2023-01-07 06:12] LABS: Basophils # (auto) 0.03 K/uL (0-0.2); Basophils % (auto) 0.4 %; Eosinophils # (auto) 0.27 K/uL (0-0.50); Eosinophils % (auto) 3.4 %; Hematocrit (blood only) 49.8 % (42.0-52.0); Hemoglobin 16.7 g/dl (14.0-18.0); Immature Granulocytes # (auto) 0.03 K/uL (0.01-0.20); Immature Granulocytes % (auto) 0.4 %; Lymphocytes # (auto) 1.52 K/uL (1.2-3.4); Lymphocytes % (auto) 19.4 %; Mean Corpuscular Hemoglobin 28.3 pg (25.0-34.0); Mean Corpuscular Hgb Conc 33.5 g/dL (32.0-36.0); Mean Corpuscular Volume 84.4 fL (80.0-100.0); Mean Platelet Volume 10.4 fL (9.4-12.4); Monocytes # (auto) 0.65 K/uL (0.11-0.59); Monocytes % (auto) 8.3 %; Neutrophils # (auto) 5.35 K/uL (1.40-6.50); Neutrophils % (auto) 68.1 %; Platelet Count 277 K/uL (130-400); RDW Coefficient of Variation 12.9 % (11.5-14.5); RDW Standard Deviation 39.7 fL (36.4-46.3); White Blood Count 7.85 K/ul (4.8-10.8)
[2023-01-07 07:16] LABS: Ferritin 69.8 ng/ml (8-388)
[2023-01-07 07:38] LABS: INR 1.1 (0.9-1.1); Partial Thromboplastin Ratio 1.6; Partial Thromboplastin Time 43.4 Seconds (21.0-31.0); Prothrombin Time 11.4 Seconds (9.0-12.0)
[2023-01-07 07:45] LABS: Albumin Level 3.9 gm/dl (3.4-5.0); Calcium 8.7 mg/dl (8.5-10.1); Magnesium 2.1 mg/dl (1.7-2.4); Potassium 3.5 mmol/L (3.5-5.1)
[2023-01-07 07:58] LABS: Phosphorus 2.3 mg/dl (2.5-4.9)
[2023-01-07] MEDS: FAMOTIDINE 20 MG TAB PO SCH ×2 (08:33→20:14)
[2023-01-07] MEDS: carvediloL 25 MG TAB PO SCH (08:33)
[2023-01-07] MEDS: CHOLECALCIFEROL 400 UNITS 10 MCG TAB PO SCH (08:34)
[2023-01-07] MEDS: MULTIVITAMIN TAB PO SCH (08:34)
[2023-01-07] MEDS: ASPIRIN 81 MG ECTAB PO SCH (08:34)
[2023-01-07] MEDS: VALSARTAN/SACUBITRIL 51/49 MG TAB PO SCH ×2 (08:34→20:14)
[2023-01-07] MEDS: MONTELUKAST SODIUM 10 MG TABLET PO SCH (08:34)
[2023-01-07] MEDS: FLUTICASONE PROPIONATE NA SPR 16 GM BTL NAE SCH (08:35)
[2023-01-07] MEDS: FUROSEMIDE 20 MG TAB PO SCH (08:35)
[2023-01-07] MEDS: FLUTICASONE/VILANTEROL 200/25MCG 14 PUFFS/INHALER INH SCH (08:35)
[2023-01-07] MEDS: ASCORBIC ACID 500 MG TAB PO SCH (08:35)
[2023-01-07] MEDS: POTASSIUM CHLORIDE CRTAB 20 MEQ TABCR PO SCH (08:35)
[2023-01-07] MEDS: HEPARIN SODIUM/DEXTROSE 25,000 UNITS/500 ML BAG IV SCH ×2 (08:40→11:51)
[2023-01-07 08:49] LABS: BUN Creatinine Ratio 10.5 (10-20); Creatinine Clr Calc Pharmacy 118.4 ml/min; Est GFR (Non-African American) 89.8 ml/min
--- NOTE | 2023-01-07 09:57 | Progress Note ---
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 Acute on chronic CHF exacerbation -presented with increased sob at rest -outpatient echo: global dyskinesia, EF 30% -switched to carvedilol 25mg bid, cont. -started on entresto, cont. -cont. home lasix 20mg daily. Gave an additional dose of lasix 20mg po for further diuresis -monitor I/Os, daily weights, Cr Afib with RVR -Previosuly seen on EKG in Jul 2022. Found incidentally again on recent outpatient echo. Possible triggers include previous covid, asthma, right heart strain. Possibly contributing to cardiomyopathy. -previously on Bystolic; switched to carvedilol for rate control -digoxin x3 given 01/06 for rhythm control; may attempt cardioversion later this week -started on heparin gtt on admission, will transition to eliquis 5mg bid for anticoagulation Elevated trop -trop peaked at 35, suspect due to demand ischemia Hypokalemia - likely due to diuresis - cont. potassium 20meq qam HTN - See above; cont. carvedilol, entresto - Recommend sleep study outpatient Asthma, chronic - Followed by Pulmonology, Dr. Early - Continue Montelukast, Fluticasone/albuterol inhaler, duoneb q4h Restless leg syndrome Insomnia - Continue Melatonin 4.5 mg GERD -Continue Ondansetron 4 mg FEN/GI: HH DVT ppx: heparin gtt, will transition to eliquis 5mg bid Code Status: Full Dispo: PCU Atrial fibrillation type: unspecified Qualified Code(s): I48.91 - Unspecified atrial fibrillation Admission and Anticipated Discharge Date Admission Date: January 05, 2023 Supervising Physician Co-Signing Physician Notes I personally examined the patient and verified all khalil points of history and exam, discussed case, and agree with decision making with Georgia Taylor Feeling a good bit better still dyspnea on exertion. vitals noted nad heent nc at mmm breathing unlabored no accessory muscles good effort skin no rashes no pallor or icterus neuro no focal deficits afib, likely rate related cardiomyopathy, subsequent rate related (diastolic) and possibly acute systolic CHF w mild pulmonary edema - likely precipitated by long standing increase in intrathoracic pressure (mostly from asthma - ?underlying CLAUDIA as well?) - rate control, anticoagulation, likely ischemic w/u at some point for completeness but demand ischemia fairly mild and echo not w focal wall motion abnormalities so certainly no acuity for this. Outpatient sleep study. Continue current med management, a little bit of additional diuresis today. Depending on cardioversion versus outpatient management per cardiologypossibly home tomorrow, if cardioversion, will likely keep until it i s complete Subjective Patient seen at bedside this morning. He did not sleep well overnight. Still having sob at rest, has not tried to walk around yet. Some sternal pain. Denies chest pain, fever, headache, abd pain, diarrhea/constipation, leg pain. Review of Systems Review of Systems: All systems reviewed & are unremarkable except as noted in HPI & below Physical Exam Constitutional: WD/WN, vitals as above well developed, well nourished and + well hydrated; no acute distress Eyes: PERRL, conjunctivae normal, anicteric sclerae Respiratory: normal respiratory effort (Speaking in full sentences, but coughing a little after a deep inhalation) and + cough Auscultation: lungs clear to auscultation bilaterally and + diminished lung sounds Cardiovascular: Rate/Rhythm: regular rate and + irregularly irregular Vessels: normal peripheral pulses; no JVD and no carotid bruit Extremities: + pedal edema; no calf tenderness Skin: no rashes, warm and dry Psychiatric: A+Ox3, euthymic affect Eye Contact: good eye contact Results & Data ([facility]) Vital Signs (Past 12 Hours) Vital Signs Temp Pulse Pulse Resp BP Pulse Ox O2 Del Method 01/07/23 07:00 36.5 C 81 20 125/61 Room Air 01/07/23 05:06 36.4 C L 80 16 125/61 93 Room Air 01/06/23 23:20 36.6 C 99 H 16 113/72 96 Room Air 01/06/23 22:10 119 H 01/06/23 21:44 110 H
--- NOTE | 2023-01-07 10:02 | Cardiology Progress Note ---
Date of Service January 07, 2023 Assessment & Plan (1) Congestive heart failure: (2) Cardiomyopathy: (3) Atrial fibrillation: (4) Anticoagulant long-term use: (5) Elevated troponin: (6) History of COVID-19: (7) Hypertension: (8) AIVR (accelerated idioventricular rhythm): Plan 1. Congestive heart failure: He presents with worsening shortness of breath and dyspnea on exertion and appears to be in mild congestive heart failure. Although improved I believe he still has some element of congestive heart failure and would recommend another day of diuresis. 2. Cardiomyopathy: Based on his echocardiogram (verbal report, I have not seen the official report) he has significant left ventricular dysfunction. This is consistent with cardiomegaly seen on CT scan. His cardiomyopathy is most likely due to atrial fibrillation, although it could be due to COVID-19 or some other cause. At this point I would rate control his atrial fibrillation, he is now on Entresto, carvedilol and digoxin, although his rate remains elevated. I am going to increase his carvedilol today and check a digoxin level, he did receive 0.75 mg yesterday total. He was started on anticoagulation that should be continued, I believe we can discontinue heparin and initiate Eliquis today. I am hopeful that with rate control his cardiomyopathy will improve. If we cannot get his heart rate controlled I recommended a RATNA cardioversion, I am going to go ahead and try to schedule that for Thursday in case we were still struggling with high heart rates. So far his blood test for reversible causes of cardiomyopathy are negative. 3. Atrial fibrillation: His echocardiogram from August 21, 2022 shows atrial fibrillation with a rapid heart rate, that was when he presented with COVID-19. His symptoms are relatively minor and perhaps he has been in that arrhythmia since which could explain his cardiomyopathy. His [id number] score was only 1 in July, hypertension, but now with congestive heart failure and with the thought that we will probably try to get him back into sinus rhythm in the near future he should be anticoagulated. He is currently on heparin but I will switch to Eliquis. 4. Anticoagulation: I would continue anticoagulation for the time being, I would use Eliquis 5 mg twice a day. 5. Elevated troponin: His troponin is minimally elevated and there has been a slight drop since presentation. This may be demand ischemia or it may represent a component of ongoing myocardial damage such as myocarditis, however it is not consistent with ischemia. At some point we should probably do something to exclude coronary artery disease but that does not change our current approach. I would favor a stress echo, but I would not do that now in the acute setting. 6. COVID-19: It is possible his COVID 19 diagnosis in July 2022 was related to his current presentation, either by helping initiate atrial fibrillation (which had not been seen before) or perhaps independently causing the cardiomyopathy. There is no specific treatment for this. 7. Hypertension: He has a long history of hypertension which has been well controlled. I suspect the heart for medications that we are going to place him on will control his blood pressure as well. I would prefer to use beta-blockade and Entresto rather than calcium channel blockers. 8. AIVR: He has a history of AIVR, we have not seen that this admission that probably is not related to his current presentation. That has been minimally symptomatic in the past. Admission and Anticipated Discharge Date Admission Date: January 05, 2023 Subjective He is probably feeling somewhat better today but still does not feel back. His breathing is still not back to baseline and he has not been very active although he has been going to the bathroom frequently. He is diuresing quite a bit. He is not aware of his rhythm and does not have palpitations or sensation of a high heart rate. Physical Exam Physical Exam: Constitutional: Alert, cooperative and in no distress. HEENT: Unremarkable Neck: No jugular venous distention, carotid pulses are irregular but otherwise normal and equal bilaterally without bruits. Pulmonary: Slight basilar crackles. Cardiac: Irregular rhythm with no murmur, gallop or rub. Abdomen: Soft, nontender with normal bowel sounds. Extremities: No edema. Distal pulses intact. Neurologic: No focal findings. Gait is steady. Skin: No rash, ecchymoses or petechiae. Results & Data ([facility]) Vital Signs (Past 12 Hours) Vital Signs Temp Pulse Pulse Resp BP Pulse Ox O2 Del Method 01/07/23 07:00 36.5 C 81 20 125/61 Room Air 01/07/23 05:06 36.4 C L 80 16 125/61 93 Room Air 01/06/23 23:20 36.6 C 99 H 16 113/72 96 Room Air 01/06/23 22:10 119 H Laboratory Results Cardiac Enzymes 01/06/23 01/06/23 Range/Units 10:58 16:06 Troponin I High Sens 30.3 H 30.3 H (0-20) pg/ml Coagulation 01/06/23 01/06/23 01/07/23 Range/Units 16:01 22:57 05:49 PT (9.0-12.0) Seconds APTT 44.4 H 41.1 H Cancelled (21.0-31.0) Seconds 01/07/23 Range/Units 05:49 PT 11.4 (9.0-12.0) Seconds APTT 43.4 H (21.0-31.0) Seconds CBC 01/07/23 Range/Units 05:49 WBC 7.85 (4.8-10.8) K/ul RBC 5.90 (4.70-6.10) M/uL Hgb 16.7 (14.0-18.0) g/dl Hct 49.8 (42.0-52.0) % Plt Count 277 (130-400) K/uL Neut # (Auto) 5.35 (1.40-6.50) K/uL Lymph # (Auto) 1.52 (1.2-3.4) K/uL [place] # (Auto) 0.65 H (0.11-0.59) K/uL Eos # (Auto) 0.27 (0-0.50) K/uL Baso # (Auto) 0.03 (0-0.2) K/uL Comprehensive Metabolic Panel 01/07/23 Range/Units 05:49 Sodium 141 (136-145) mmol/L Potassium 3.5 (3.5-5.1) mmol/L Chloride 107 (98-107) mmol/L Carbon Dioxide 26 (21-32) mmol/L BUN 10 (6-23) mg/dl Creatinine 0.95 (0.6-1.4) mg/dl Glucose 107 H (70-99(Fasting)) mg/dl Calcium 8.7 (8.5-10.1) mg/dl Albumin 3.9 (3.4-5.0) gm/dl Intake and Output 01/06/23 01/07/23 01/07/23 22:59 06:59 14:59 Intake Total 200.2 / 1541.2 350 / 1541.2 255.200 / 255.200 Output Total 1225 / 2350 575 / 2350 Balance -1024.8 / -808.8 -225 / -808.8 255.200 / 255.200 Intake: IV 200.2 / 596.2 200 / 596.2 255.200 / 255.200 Heparin Sodium/Dextrose 25,000 200.2 / 596.2 200 / 596.2 255.200 / 255.200 units In 500 ml @ 1,500 UNITS/ HR 30 mls/hr IV .[id number] DONNIE Rx #:[id number] Oral 150 / 945 Output: Urine 1225 / 2350 575 / 2350 Other: Weight 111.4 kg Weight Measurement Method Built in [facility] Diagnostic Findings Telemetry: Atrial fibrillation, heart rate still elevated. Averaging around 100 overall, in the mid 90s overnight, 110-120 during the day while active. V isually assessed. PG Care Time/CCT Total # of Minutes Spent Total Time Spent with Patient: Total time spent is greater than 50% in coordination of care (as documented) at patient's floor/unit and/or counseling patient: Coding Level of Care Code 38071 SUB INP/OBS CARE 3/50MIN Diagnoses Congestive heart failure I50.9 Heart failure chronicity: unspecified Heart failure type: unspecified Cardiomyopathy I42.0 Cardiomyopathy type: dilated Atrial fibrillation I48.91 Atrial fibrillation type: unspecified Anticoagulant long-term use Z79.01 Elevated troponin R77.8 History of COVID-19 Z86.16 Hypertension I10 Hypertension type: primary hypertension AIVR (accelerated idioventricular rhythm) I44.2 (1) Congestive heart failure Heart failure chronicity: unspecified Heart failure type: unspecified Qualified Code(s): I50.9 - Heart failure, unspecified (2) Cardiomyopathy Cardiomyopathy type: dilated Qualified Code(s): I42.0 - Dilated cardiomyopathy (3) Atrial fibrillation Atrial fibrillation type: unspecified Qualified Code(s): I48.91 - Unspecified atrial fibrillation (7) Hypertension Hypertension type: primary hypertension Qualified Code(s): I10 - Essential (primary) hypertension
[2023-01-07] MEDS ORDERED: FUROSEMIDE 20 MG TAB PO ONE (11:06)
[2023-01-07] MEDS ORDERED: carvediloL 12.5 MG TAB PO ONE (12:45)
[2023-01-07] MEDS ORDERED: POTASSIUM CHLORIDE CRTAB 20 MEQ TABCR PO STA (12:46)
[2023-01-07] MEDS: POT PHOSPHATE MONOBASIC W/ SOD TAB PO SCH ×3 (13:27→20:14)
[2023-01-07] MEDS: APIXABAN 5 MG TABLET PO SCH ×2 (13:28→20:14)
[2023-01-07 13:52] LABS: Partial Thromboplastin Ratio 1.5; Partial Thromboplastin Time 40.1 Seconds (21.0-31.0)
[2023-01-07] MEDS: ACETAMINOPHEN 325 MG TAB PO PRN (16:39)
--- NOTE | 2023-01-07 17:46 | Billing Data ---
Date of Service January 07, 2023 Coding Level of Care Code 72283 SUB INP/OBS CARE 3MIN
[2023-01-07] MEDS: DIGOXIN 0.25 MG TAB PO SCH (17:48)
[2023-01-07] MEDS: CYCLOBENZAPRINE HCL 10 MG TAB PO SCH (20:15)
[2023-01-07] MEDS: MELATONIN 3 MG TAB PO SCH (20:15)
[2023-01-07] MEDS: carvediloL 12.5 MG TAB PO SCH (20:16)
[2023-01-07] MEDS: diazePAM 5 MG TABLET PO SCH (20:18)
--- NOTE | 2023-01-07 22:21 | Electrocardiogram Report ---
Test Reason : Blood Pressure : / mmHG Vent. Rate : 102 BPM Atrial Rate : 096 BPM P-R Int : 000 ms QRS Dur : 106 ms QT Int : 384 ms P-R-T Axes : 000 -31 026 degrees QTc Int : 500 ms Poor data quality, interpretation may be adversely affected Atrial fibrillation with rapid ventricular response Left axis deviation Cannot rule out Inferior infarct , age undetermined Nonspecific T wave abnormality Abnormal ECG When compared with ECG of 06-JAN-2023 06:01, QRS axis Shifted left Nonspecific T wave abnormality now evident in Anterolateral leads Confirmed by Jl Bedolla ([id number]) on 01/07/2023 10:21:26 PM Referred By: Velasquez Ventura Confirmed By:Jl Bedolla
[2023-01-08] MEDS: POT PHOSPHATE MONOBASIC W/ SOD TAB PO SCH (01:10)
[2023-01-08 07:03] LABS: Basophils # (auto) 0.02 K/uL (0-0.2); Basophils % (auto) 0.3 %; Eosinophils # (auto) 0.24 K/uL (0-0.50); Eosinophils % (auto) 3.4 %; Hematocrit (blood only) 51.5 % (42.0-52.0); Hemoglobin 17.2 g/dl (14.0-18.0); Immature Granulocytes # (auto) 0.05 K/uL (0.01-0.20); Immature Granulocytes % (auto) 0.7 %; Lymphocytes # (auto) 1.67 K/uL (1.2-3.4); Lymphocytes % (auto) 23.5 %; Mean Corpuscular Hemoglobin 28.5 pg (25.0-34.0); Mean Corpuscular Hgb Conc 33.4 g/dL (32.0-36.0); Mean Corpuscular Volume 85.4 fL (80.0-100.0); Mean Platelet Volume 10.7 fL (9.4-12.4); Monocytes # (auto) 0.78 K/uL (0.11-0.59); Neutrophils # (auto) 4.34 K/uL (1.40-6.50); Neutrophils % (auto) 61.1 %; Platelet Count 274 K/uL (130-400); RDW Coefficient of Variation 13.2 % (11.5-14.5); RDW Standard Deviation 40.9 fL (36.4-46.3); Red Blood Count 6.03 M/uL (4.70-6.10)
[2023-01-08 07:19] LABS: Albumin Level 3.6 gm/dl (3.4-5.0); BUN Creatinine Ratio 12.6 (10-20); Calcium 9.1 mg/dl (8.5-10.1); Creatinine Clr Calc Pharmacy 85.7 ml/min; Est GFR (African American) 73.2 ml/min; Est GFR (Non-African American) 63.2 ml/min; Magnesium 2.2 mg/dl (1.7-2.4); Phosphorus 5.6 mg/dl (2.5-4.9); Potassium 4.4 mmol/L (3.5-5.1)
[2023-01-08 07:31] LABS: INR 1.1 (0.9-1.1); Partial Thromboplastin Time 28.5 Seconds (21.0-31.0); Prothrombin Time 11.4 Seconds (9.0-12.0)
[2023-01-08] MEDS: FLUTICASONE PROPIONATE NA SPR 16 GM BTL NAE SCH (09:21)
[2023-01-08] MEDS: FLUTICASONE/VILANTEROL 200/25MCG 14 PUFFS/INHALER INH SCH (09:21)
[2023-01-08] MEDS: VALSARTAN/SACUBITRIL 51/49 MG TAB PO SCH (09:22)
[2023-01-08] MEDS: FAMOTIDINE 20 MG TAB PO SCH (09:22)
[2023-01-08] MEDS: CHOLECALCIFEROL 400 UNITS 10 MCG TAB PO SCH (09:22)
[2023-01-08] MEDS: POTASSIUM CHLORIDE CRTAB 20 MEQ TABCR PO SCH (09:22)
[2023-01-08] MEDS: FUROSEMIDE 20 MG TAB PO SCH (09:22)
[2023-01-08] MEDS: MONTELUKAST SODIUM 10 MG TABLET PO SCH (09:22)
[2023-01-08] MEDS: MULTIVITAMIN TAB PO SCH (09:22)
[2023-01-08] MEDS: carvediloL 12.5 MG TAB PO SCH (09:22)
[2023-01-08] MEDS: ASPIRIN 81 MG ECTAB PO SCH (09:23)
[2023-01-08] MEDS: APIXABAN 5 MG TABLET PO SCH (09:23)
[2023-01-08] MEDS: ASCORBIC ACID 500 MG TAB PO SCH (09:23)
[2023-01-08] MEDS ORDERED: carvediloL 12.5 MG TAB PO ONE (10:08)
--- NOTE | 2023-01-08 10:09 | Discharge Summary ---
Date of Service January 08, 2023 Admission HPI Per Admitting Provider The patient is a 57-year-old male with a past medical history including steroid- dependent asthma, lower extremity edema, COVID-19 on 08/14, history of V. tach, RLS, hypertension, asthma, insomnia, hypertension, AIVR, concussion and history of asthma exacerbations. He was referred to the emergency department by cardiology today due to atrial fibrillation with RVR being detected on routine preoffice visit echocardiogram. Upon arrival to the emergency department, the patient was in atrial fibrillation with controlled rate. He reports that he has had worsening issues with asthma exacerbations and breathing in general ever since having had COVID-19 infection in July 2022. He has been on multiple prednisone courses, with most recent being 2 weeks ago. He uses his albuterol HFA 4 times daily. He has a persistent irritant cough over the past several months as well. He has had issues with reflux in the past, which she has not taken medications for recently, but did actually take a single dose of Pepcid yesterday. Significant abnormal laboratories: Potassium 3.3 with normal magnesium 2.2, glucose 106, troponin 35.3. Chest x-ray shows cardiomegaly with suggestion of possible early CHF EKG showed atrial fibrillation with controlled rate of 90 The patient was started on heparin drip by the ED Principal Diagnosis acute on chronic CHF, atrial fibrillation, cardiomyopathy Discharge Exam Constitutional WD/WN, vitals as above well nourished and + well hydrated Eyes PERRL, conjunctivae normal, anicteric sclerae Respiratory normal respiratory effort, lungs clear to auscultation normal respiratory effort, + cough and able to speak in complete sentences; no labored breathing Auscultation: lungs clear to auscultation bilaterally and + diminished lung sounds Cardiovascular Rate/Rhythm: regular rate and + irregularly irregular Heart Sounds: no gallop, no murmur and no cardiac rub Vessels: no JVD Extremities: normal capillary refill and + pedal edema; no calf tenderness and no edema Skin no rashes, warm and dry Psychiatric A+Ox3, euthymic affect Discharge Data Allergies Allergy/AdvReac Type Severity Reaction Status Date / Time ceftriaxone [From Rocephin] Allergy Mild Hives Verified 12/03/22 11:15 amoxicillin Allergy Unknown RX AN Verified 12/03/22 11:15 clavulanic acid Allergy Unknown RX AN Verified 12/03/22 11:15 INFANT erythromycin base Allergy Unknown REACTION Verified 12/03/22 11:15 TO PCN AND AUGMENTIN Penicillins Allergy Unknown REACTION Verified 12/03/22 11:15 AN INFANT - UNKNOWN Tetracyclines Allergy Unknown VOMITING Verified 12/03/22 11:15 AND RASH banana AdvReac Vomiting Unverified 01/05/23 21:19 Consultations 01/05/23 18:37 ED Decision to Admit Stat 01/05/23 22:03 Consult Cardiology Routine 01/07/23 11:07 Consult Cardiac Rehabilitation Routine Ordered Studies Laboratory Results WBC 7.10 K/ul (4.8-10.8) 01/08/23 06:08 RBC 6.03 M/uL (4.70-6.10) 01/08/23 06:08 Hgb 17.2 g/dl (14.0-18.0) 01/08/23 06:08 Hct 51.5 % (42.0-52.0) 01/08/23 06:08 MCV 85.4 fL (80.0-100.0) 01/08/23 06:08 MCH 28.5 pg (25.0-34.0) 01/08/23 06:08 MCHC 33.4 g/dL (32.0-36.0) 01/08/23 06:08 RDW Std Deviation 40.9 fL (36.4-46.3) 01/08/23 06:08 RDW Coeff of Nam 13.2 % (11.5-14.5) 01/08/23 06:08 Plt Count 274 K/uL (130-400) 01/08/23 06:08 MPV 10.7 fL (9.4-12.4) 01/08/23 06:08 Immature Gran % (Auto) 0.7 % 01/08/23 06:08 Neut % (Auto) 61.1 % 01/08/23 06:08 Lymph % (Auto) 23.5 % 01/08/23 06:08 [place] % (Auto) 11.0 % 01/08/23 06:08 Eos % (Auto) 3.4 % 01/08/23 06:08 Baso % (Auto) 0.3 % 01/08/23 06:08 Neut # (Auto) 4.34 K/uL (1.40-6.50) 01/08/23 06:08 Lymph # (Auto) 1.67 K/uL (1.2-3.4) 01/08/23 06:08 [place] # (Auto) 0.78 K/uL (0.11-0.59) H 01/08/23 06:08 Eos # (Auto) 0.24 K/uL (0-0.50) 01/08/23 06:08 Baso # (Auto) 0.02 K/uL (0-0.2) 01/08/23 06:08 Immature Gran # (Auto) 0.05 K/uL (0.01-0.20) 01/08/23 06:08 PT 11.4 Seconds (9.0-12.0) 01/08/23 06:08 INR 1.1 (0.9-1.1) 01/08/23 06:08 APTT 28.5 Seconds (21.0-31.0) 01/08/23 06:08 PTT Ratio 1.0 01/08/23 06:08 Sodium 144 mmol/L (136-145) 01/08/23 06:08 Potassium 4.4 mmol/L (3.5-5.1) D 01/08/23 06:08 Chloride 106 mmol/L (98-107) 01/08/23 06:08 Carbon Dioxide 32 mmol/L (21-32) 01/08/23 06:08 Anion Gap 6 (3-11) 01/08/23 06:08 BUN 16 mg/dl (6-23) 01/08/23 06:08 Creatinine 1.27 mg/dl (0.6-1.4) D 01/08/23 06:08 Est Cr Clr Drug Dosing 85.7 ml/min 01/08/23 06:08 Est GFR ( Amer) 73.2 ml/min 01/08/23 06:08 Est GFR (Non-Af Amer) 63.2 ml/min 01/08/23 06:08 BUN/Creatinine Ratio 12.6 (10-20) 01/08/23 06:08 Glucose 94 mg/dl (70-99(Fasting)) 01/08/23 06:08 Calcium 9.1 mg/dl (8.5-10.1) 01/08/23 06:08 Phosphorus 5.6 mg/dl (2.5-4.9) H D 01/08/23 06:08 Magnesium 2.2 mg/dl (1.7-2.4) 01/08/23 06:08 Iron 92 mcg/dl (35-175) 01/07/23 05:49 Unsaturated IBC 220 mcg/dl (155-355) 01/07/23 05:49 Ferritin 69.8 ng/ml (8-388) 01/07/23 05:49 Total Bilirubin 0.6 mg/dl (0.2-1.0) 01/05/23 16:00 AST 23 U/L (13-39) 01/05/23 16:00 ALT 18 U/L (7-52) 01/05/23 16:00 Alkaline Phosphatase 52 U/L (34-104) 01/05/23 16:00 Troponin I High Sens 30.3 pg/ml (0-20) H 01/06/23 16:06 Total Protein 6.7 gm/dl (6.0-8.3) 01/05/23 16:00 Albumin 3.6 gm/dl (3.4-5.0) 01/08/23 06:08 Globulin 2.7 gm/dl (2.5-4.0) 01/05/23 16:00 Albumin/Globulin Ratio 1.5 (0.9-2) 01/05/23 16:00 Digoxin 0.5 ng/ml (0.8-2.0) L 01/07/23 12:57 SARS-CoV-2, RNA, NAAT NEGATIVE (NEGATIVE) 01/05/23 19:11 Impressions Chest X-Ray 01/05/23 15:50 SINGLE VIEW CHEST CLINICAL HISTORY: Atypical chest pain FINDINGS: An AP, portable, upright chest radiograph is compared to study dated 11/10/2022 and correlated with chest CT dated 12/02/2022. The heart is enlarged. There is prominence of the pulmonary vasculature. The lungs and pleural spaces are clear noting bibasilar atelectasis. No pneumothorax is seen. The bony thorax is grossly intact. IMPRESSION: Cardiomegaly with prominence of the pulmonary vasculature. Correlate clinically for evidence of fluid overload/mild congestive change. ACT 112: Negative or not required by law. Electronically signed by: Reji Lauren M.D. 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 Acute on chronic CHF exacerbation Cardiomyopathy -presented with increased sob at rest; likely culprit was big superbowl meal the night before. Cardiology following. -outpatient echo: global dyskinesia, EF 30% -titrated up carvedilol 50mg bid, cont. -cont. Entresto bid, cont. -cont. home Lasix 20 mg daily with supplementation of potassium 20meq daily -f/u cardiology, heart clinic, cardiac rehab Afib with RVR -Previously seen on EKG in Jul 2022. Found incidentally again on recent outpatient echo. Possible triggers include previous covid, asthma, right heart strain. Possibly contributing to cardiomyopathy. Remains in atrial fibrillation. -previously on Bystolic; switched to carvedilol for rate control, cont. -Cont. digoxin daily -Eliquis 5mg bid, cont. -will f/u with cardiology next week. Possible cardioversion in the upcoming weeks. Elevated trop, peaked -trop peaked at 35 then continued to downtrend, suspect due to demand ischemia Hypokalemia, resolved - Likely due to diuresis - Continue potassium 20meq daily HTN - See above; continue Carvedilol, Entresto - D/c'd home amlodipine, Bystolic Asthma, chronic - Followed by Pulmonology, Dr. Early - Continue taking Montelukast, Wixela, albuterol - Recommend in lab sleep study outpatient Restless leg syndrome Insomnia - Continue taking Melatonin 4.5 mg GERD -Continue taking Ondansetron 4 mg Total Time Total Time Spent Total Time Spent (In Minutes): >30 Discharge Plan Discharge Items Patient Disposition: Home - Self-Care Reason For Visit: NEW ONSET ATRIAL FIBRILLATION Discharge Diagnosis: acute on chronic CHF, atrial fibrillation, cardiomyopathy Activity: Per Instructions section Non-emergency contact: Primary Care Provider, Aircraft Power Plant Assembler and Pulp Screen Operator Call non-emergency contact if: you have any medication questions Follow-up/Referrals: Velasquez Ventura MD [Physician] - 01/16/23 11:00 am Gabriella Elizabeth PA-C [Physician Kitchen Operator] - (Heart failure clinic) Amrit Alvarez MD [Primary Care Provider] - Diet: Heart Healthy and Low Sodium (2gm) Addtl Attending Provider Instructions: You were admitted to the hospital for suspected atrial fibrillation from an outpatient echocardiogram. We monitored you in the hospital and you remained in atrial fibrillation throughout your stay with the goal of improving your heart rate. As for your echocardiogram, it showed that you have a reduced heart function, unknown etiology at this time as discussed her treatment plan remains the same with the hopes of improved heart function over time. Below is a problem by problem list with treatment goals going forward. CHF -When you arrived you appear to be fluid overloaded which was aiding to your shortness of breath. We gave you additional diuretics to take fluid off eventually we got you to the more dry side. To avoid CHF exacerbation in the future it is important to reduce your sodium intake with goals of limiting sodium to 2000mg a day. As fluid intake is less important you should still be cautious in over drinking daily. Atrial fibrillation -You remain in atrial fibrillation, but your heart rate is reasonable for your clinical picture. We have added some medications to help with your heart rate as well as a blood thinner to reduce your chance of stroke going forward. Cardiology will speak with you at your next visit for a potential cardioversion down the road. 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 -It would be a good idea to plan for a repeat sleep study. Medications: -Stop home amlodipine and Bystolic -Continue Entresto, carvedilol, digoxin as prescribed -Continue potassium supplementation 20meq daily -Continue lasix 20mg daily Follow ups: -Cardiology next week -Primary care provider in the next 1-2 weeks -Heart failure clinic with Gabriella Elizabeth who will likely get repeat labs -Cardiac rehab -Pulmonology for sleep study and asthma Pending Studies at Discharge: No Stand-Alone Forms: My [facility], Work/School Release, Smoking Cessation Medications and DC Order Prescriptions: New Eliquis 5 mg Tablet 5 mg PO BID Qty: 40 0RF carvedilol 25 mg Tablet 50 mg PO BID Qty: 40 0RF digoxin 250 mcg (0.25 mg) Tablet 0.25 mg PO QAM Qty: 20 0RF potassium chloride 20 mEq Tablet,Er Particles/Crystals 20 meq PO QAM Qty: 40 0RF Entresto 49-51 mg Tablet 1 tab PO BID Qty: 40 0RF Continued albuterol sulfate 90 mcg/actuation aerosol powdr breath activated 1 puffs INH .COMPLEX PRN (Reason: Shortness Of Breath Or Wheezing) Patient Comments: 1 inh INH as needed; Rx Instructions: 1 inh INH as needed; cyclobenzaprine 10 mg tablet 10 mg PO HS Qty: 30 0RF fluticasone propionate [Children's Flonase Allergy Rlf] 50 mcg/actuation spray,suspension See Rx Instructions INTNAS DAILY Rx Instructions: 1-2sprays in each nostril daily INTNAS DAILY; montelukast 10 mg tablet 10 mg PO QAM ascorbate calcium (vitamin C) 500 mg tablet 500 mg PO DAILY cholecalciferol (vitamin D3) 400 unit capsule 400 units PO DAILY diazepam 5 mg tablet 5 mg PO HS melatonin 5 mg capsule 5 mg PO HS furosemide [Lasix] 20 mg tablet 20 mg PO DAILY Qty: 30 2RF fluticasone propion-salmeterol [Wixela Inhub] 500-50 mcg/dose blister with device 1 inh inhalation BID Qty: 60 2RF Calcium Magnesium 500 mg calcium -250 mg Tablet 3 tab PO DAILY multivitamin Tablet 1 tab PO DAILY Discontinued Bystolic 20 mg tablet 20 mg PO BID Qty: 180 3RF amlodipine 10 mg tablet 10 mg PO DAILY Qty: 90 3RF Discharge Orders: Discharge Order- CHF (Routine); Ordered 01/08/23 Ordered By: Cliff Kaplan Admission Data Admit Date/Time: 01/05/23 20:47 Attending Provider: Amrit Stapleton Admit Provider: Trip Fragoso Primary Care Provider: Amrit Alvarez Other Providers: Trip Fragoso ; Velasquez Ventura Other Interventions: Discharge Summary Assessment (RN) Last Done: 01/08/23 17:53 Supervising Physician Co-Signing Physician Notes I personally examined the patient and verified all khalil points of history and exam, discussed case, and agree with decision making with Georgia Taylor Dyspnea on exertion better. Somewhat lightheaded when walking. Otherwise feels up to going home. Heart rate bumped up some with exertion, may be a little bit at rest at times, but overall rate control is been much better. Would like to go home. vitals noted nad heent nc at mmm breathing unlabored no accessory muscles good effort skin no rashes no pallor or icterus neuro no focal deficits afib, likely rate related cardiomyopathy, subsequent rate related (diastolic) and possibly acute systolic CHF w mild pulmonary edema - likely precipitated by long standing increase in intrathoracic pressure (mostly from asthma - ?underlying CLAUDIA as well?) - rate control, anticoagulation, likely ischemic w/u at some point for completeness but demand ischemia fairly mild and echo not w focal wall motion abnormalities so certainly no acuity for this. Outpatient sleep study. Stable for home. Discussed that lightheadedness and even a little bit of low blood pressure from time to time is likely a combination of being on the slightly dry side after extra diuresis yesterday, as well as Entresto. Discussed orthostatic prophylaxis as far as preventing syncope and preventing problems if he has syncope, then discussed that it is likely that these are side effects that will be temporary, but if he is continuing to feel that dizziness/orthostasis past maybe the next 5 days or so, that likely reducing dose of Entresto would make sense. Otherwise home on current medications, basic metabolic panel roughly weekly. Extensively discussed sodium restriction (with hindsight his joked that she put him into congestive heart failure with their Super Bowl meal)but they expressed a very good understanding of sodium restriction. Home, close and multidisciplinary follow-up
--- NOTE | 2023-01-08 10:20 | Cardiology Progress Note ---
Date of Service January 08, 2023 Assessment & Plan (1) Congestive heart failure: (2) Cardiomyopathy: (3) Atrial fibrillation: (4) Anticoagulant long-term use: (5) Elevated troponin: (6) History of COVID-19: (7) Hypertension: (8) AIVR (accelerated idioventricular rhythm): Plan 1. Congestive heart failure: He appears to be euvolemic now, I would transition back to his outpatient oral Lasix. He should follow up in CHF clinic. 2. Cardiomyopathy: He has significant left ventricular dysfunction. This is consistent with cardiomegaly seen on CT scan. His cardiomyopathy is most likely due to atrial fibrillation, although it could be due to COVID-19 or some other cause. At this point I would continue to rate control his atrial fibrillation, which is probably adequate now but I am going to increase the Carvedilol. He is now on Entresto, carvedilol and digoxin, at appropriate doses. I would continue these. cardiomyopathy are negative. 3. Atrial fibrillation: His echocardiogram from August 21, 2022 shows atrial fibrillation with a rapid heart rate, that was when he presented with COVID-19. His symptoms are relatively minor and perhaps he has been in that arrhythmia since which could explain his cardiomyopathy. His [id number] score was only 1 in July (hypertension), but now with congestive heart failure and with the thought that we will probably try to get him back into sinus rhythm in the near future he should be anticoagulated. He is currently on Eliquis. 4. Anticoagulation: I would continue anticoagulation for the time being, I would use Eliquis 5 mg twice a day. 5. Elevated troponin: His troponin is minimally elevated and there has been a slight drop since presentation. This may be demand ischemia or it may represent a component of ongoing myocardial damage such as myocarditis, or even rate related, however it is not consistent with ischemia. At some point we should probably do something to exclude coronary artery disease but that does not change our current approach. I would favor a stress echo, but I would not do that now in the acute setting and with the rapid HR. 6. COVID-19: It is possible his COVID 19 diagnosis in July 2022 was related to his current presentation, either by helping initiate atrial fibri llation (which had not been seen before) or perhaps independently causing the cardiomyopathy. There is no specific treatment for this. 7. Hypertension: He has a long history of hypertension which has been well controlled. I suspect the heart for medications that he is now on will control his blood pressure as well. I would prefer to use beta-blockade and Entresto rather than calcium channel blockers. 8. AIVR: He has a history of AIVR, we have not seen that this admission and that probably is not related to his current presentation. That has been minimally symptomatic in the past. I agree with discharge today if his ambulation is good and his HR does not elevate too much with activity. Admission and Anticipated Discharge Date Admission Date: January 05, 2023 Subjective He is feeling better today, he has been ambulating without too much difficulty. Less SOB and coughing, no chest pain. Brief mild headache relieved by tylenol. Physical Exam Physical Exam: Constitutional: Alert, cooperative and in no distress. HEENT: Unremarkable Neck: No jugular venous distention, carotid pulses are irregular but otherwise normal and equal bilaterally without bruits. Pulmonary: Clear to auscultation. Cardiac: Irregular rhythm with no murmur, gallop or rub. Abdomen: Soft, nontender with normal bowel sounds. Extremities: No edema. Distal pulses intact. Neurologic: No focal findings. Gait is steady. Skin: No rash, ecchymoses or petechiae. Results & Data ([facility]) Vital Signs (Past 12 Hours) Vital Signs Temp Pulse Pulse Pulse Resp BP Pulse Ox 01/08/23 07:46 36.5 C 148 H 17 124/80 94 01/08/23 07:28 88 01/08/23 03:44 36.3 C L 71 18 122/66 92 01/08/23 00:02 36.6 C 93 H 16 117/54 L 92 01/07/23 23:00 98 H O2 Del Method 01/08/23 07:46 Room Air 01/08/23 07:28 01/08/23 03:44 Room Air 01/08/23 00:02 Room Air 01/07/23 23:00 Laboratory Results Coagulation 01/07/23 01/08/23 Range/Units 12:57 06:08 PT 11.4 (9.0-12.0) Seconds APTT 40.1 H 28.5 (21.0-31.0) Seconds CBC 01/08/23 Range/Units 06:08 WBC 7.10 (4.8-10.8) K/ul RBC 6.03 (4.70-6.10) M/uL Hgb 17.2 (14.0-18.0) g/dl Hct 51.5 (42.0-52.0) % Plt Count 274 (130-400) K/uL Neut # (Auto) 4.34 (1.40-6.50) K/uL Lymph # (Auto) 1.67 (1.2-3.4) K/uL [place] # (Auto) 0.78 H (0.11-0.59) K/uL Eos # (Auto) 0.24 (0-0.50) K/uL Baso # (Auto) 0.02 (0-0.2) K/uL Comprehensive Metabolic Panel 01/08/23 Range/Units 06:08 Sodium 144 (136-145) mmol/L Potassium 4.4 D (3.5-5.1) mmol/L Chloride 106 (98-107) mmol/L Carbon Dioxide 32 (21-32) mmol/L BUN 16 (6-23) mg/dl Creatinine 1.27 D (0.6-1.4) mg/dl Glucose 94 (70-99(Fasting)) mg/dl Calcium 9.1 (8.5-10.1) mg/dl Albumin 3.6 (3.4-5.0) gm/dl Intake and Output 01/07/23 01/08/23 01/08/23 22:59 06:59 14:59 Intake Total 1000 / 1917.267 200 / 1917.267 Balance 1000 / -82.733 200 / -82.733 Intake: Oral 1000 / 1500 200 / 1500 Other: # Unmeasured Voids 2 2 Weight 103.8 kg Weight Measurement Method Built in [facility] Diagnostic Findings Telemetry: AF, rate better, averaging less than 100 PG Care Time/CCT Total # of Minutes Spent Total Time Spent with Patient: Total time spent is greater than 50% in coordination of care (as documented) at patient's floor/unit and/or counseling patient: Coding Level of Care Code 32689 SUB INP/OBS CARE 3/50MIN Diagnoses Congestive heart failure I50.9 Heart failure chronicity: unspecified Heart failure type: unspecified Cardiomyopathy I42.0 Cardiomyopathy type: dilated Atrial fibrillation I48.91 Atrial fibrillation type: unspecified Anticoagulant long-term use Z79.01 Elevated troponin R77.8 History of COVID-19 Z86.16 Hypertension I10 Hypertension type: primary hypertension AIVR (accelerated idioventricular rhythm) I44.2 (1) Congestive heart failure Heart failure chronicity: unspecified Heart failure type: unspecified Qualified Code(s): I50.9 - Heart failure, unspecified (2) Cardiomyopathy Cardiomyopathy type: dilated Qualified Code(s): I42.0 - Dilated cardiomyopathy (3) Atrial fibrillation Atrial fibrillation type: unspecified Qualified Code(s): I48.91 - Unspecified atrial fibrillation (7) Hypertension Hypertension type: primary hypertension Qualified Code(s): I10 - Essential (primary) hypertension
[2023-01-08] MEDS: ACETAMINOPHEN 325 MG TAB PO PRN (14:38)
[2023-01-08] MEDS: DIGOXIN 0.25 MG TAB PO SCH (16:46)
[2023-01-08 18:02] LABS: Albumin 3.5 g/dL (3.8-4.8); Alpha 1 Globulin 0.3 g/dL (0.2-0.3); Alpha 2 Globulin 0.8 g/dL (0.5-0.9); Angiotensin Converting Enzyme 45 U/L (9-67); Beta-1-Globulin 0.4 g/dL (0.4-0.6); Beta-2-Globulin 0.4 g/dL (0.2-0.5); Gamma Globulin 0.8 g/dL (0.8-1.7); Monoclonal Protein Band 1 DNR g/dL (NONE DETECTED); Monoclonal Protein Band 2 DNR g/dL (NONE DETECTED); Monoclonal Protein Band 3 DNR g/dL (NONE DETECTED); Total Protein 6.1 g/dL (6.1-8.1)
--- NOTE | 2023-01-08 20:23 | Billing Data ---
Date of Service January 08, 2023 Coding Level of Care Code 20774 SUB INP/OBS CARE 3MIN
--- NOTE | 2023-01-08 20:24 | Billing Data ---
Date of Service January 08, 2023 Coding Level of Care Code HOSP INP/OBS DISCH >30 MIN Comment disregard [id number] - entered in error
[2023-01-08] MEDS ORDERED: carvediloL 25 MG TAB PO SCH (21:00)
== END 2023-01-08 18:48 | disposition home or self-care (01) | DRG 308 ==
LOC: ED 15:41 → SUATTDRO 20:47 → 2S 20:47

== ENCOUNTER 2023-01-30 17:52 | Observation (INO) ==
--- NOTE | 2023-01-30 18:12 | Emergency Department Note ---
Impression & Plan Facial droop, Chest pain, Right-sided headache ED Provider Note Name: JOSELO PERALTA Age: 57 Sex: M Arrives Via: Walk-In Informant: Patient, ED Provider: David Callahan MD Chief Complaint: Frontal headache with facial droop Impression: As per impression above Medical Decision Makin-year-old pleasant gentleman with a history of asthma, hypertension and recent diagnosis of A-fib hospitalized here last month started on Eliquis, digoxin. He arrives for evaluation of sudden onset right periorbital discomfort with right upper facial weakness at roughly 4-430pm. No recent trauma, injuries or other inciting event. On getting patient to a room nursing emergently requested me to come bedside patient and due to acute onset of symptoms stroke alert was called. Taken to CT where no clear evidence of intracranial hemorrhage was noted did obtain CT angios of head and neck as well. Discussed with neurology at [place] reviewing the fact that is no LVO findings, is on Eliquis and has no evidence of intracranial hemorrhage on CT head. Agree patient is not a TNKase candidate nor would he be intervention candidate with the CTAs being negative and no evidence of dissection. Suggested treating as complex atypical migraine adding on inflammatory markers. Patient did also complain of bilateral upper chest pain. I do feel this is likely musculoskeletal given he was at rehab earlier today. EKG x2 does not show STEMI but rather his A-fib and his troponin is not consistent with ACS. Patient was monitored in the ER for several hours following medications and continues to have right-sided mild headache with right upper facial droop. With this in mind hospitalization indicated for further work-up. This is not consistent with acute arterial or venous occlusion of the eye and is made much less likely given that he is on Eliquis. There is no evidence of herpetic lesions to suggest shingles at this time. He does have mildly injected right eye which would be consistent with possible complex migraine or cluster headache. Prior Medical Record and Triage/Nursing Notes reviewed by Me External chart review by me including recent discharge summary from hospital Differentials:Intracranial hemorrhage, ischemic stroke, arterial/venous retinal issue, seizure, complex migraine, Lyme, inflammatory arterial issue, herpetic, dissection amongst other pathologies considered Vital Signs: reviewed and remarkable for no significant abnormalities Interventions: Decadron IV, magnesium IV, Ativan IV, Tylenol IV, Zofran IV Labs:Reviewed and remarkable for unremarkable laboratory work-up other than just faintly elevated CRP of nonspecific etiology. Imaging: CT of the head without contrast as per my informal interpretation no evidence of intracranial hemorrhage. Radiologist concurs CT angio of the head and neck as per radiologist no evidence of dissection or occlusion EKG:As per my interpretation. Indication anterior chest pain. Atrial fibrillation at 70 bpm with a QTc of 419. There is no ischemia appreciated. There is a PVC noted. When compared to EKG of January 07 2023 there is no significant change and PVC is new Cardiac/Tele Monitoring: Cardiac Monitoring: An Order was placed for continuous cardiac monitoring. The monitor shows a rate of 70 with a afib rhythm. Consults: Dr. Olive[facility] neurology. Agrees not TNKase candidate. No indication for transfer for neuro IR. Suggested management with Decadron mag and other meds as needed for possible atypical migraine Dr. Xuan EVANS hospitalist Plan: Disposition:Hospitalization. Condition: Good History of Present Illness:57-year-old gentleman arrives for evaluation of right facial weakness. Patient notes that he start developing what felt like an itchy right eye around 4 to 4:30 PM. As he drove home he started develop headache behind the right eye and now he notes significant weakness of the right upper face and difficulty opening his eye. Notes some tingling of the right side of his face in general. No other weakness in arms and legs, paresthesias, visual changes, nausea, vomiting, palpitations or other concerning signs or symptoms. Patient was recently diagnosed with A-fib about 1 month ago and started on Eliquis. He states he been taking it twice daily without any missed doses. He is on both a beta-fish and digoxin for rate control. He is supposed to have cardioversion in the next few days. Patient denies previous issues with this though did have a complex migraine in the past. Past Medical History:A-fib, hypertension, heart failure, asthma, migraines Home Medications:See Below Allergies:Ceftriaxone, amoxicillin, clavulanic acid, erythromycin, penicillins, tetracyclines, banana Vitals:Blood Pressure: 140/82, Pulse 64, RR 18, T 36.6C, O2 94% on RA Physical Exam: GENERAL: Patient is anxious appearing and in mild distress. EYES: No scleral icterus, unremarkable pupils. FACE: Right upper facial loss of tone. Voluntary control bilateral lower. Slight rash bilateral face (reportedly x 1 month) ENT: Mucous membranes moist, no nasal congestion. NECK: No masses appreciated, nomeningismus, trachea is midline. RESPIRATORY: No dyspnea. Clear to auscultation and equal bilaterally. No wheeze, no rhonchi. CARDIOVASCULAR: Regular rate and rhythm.No murmurs, rubs, gallops appreciated. GASTROINTESTINAL: Abdomen soft, non-tender, no peritonitis.Bowel sounds positive.No masses appreciated. BACK: No midline tenderness, no CVA tenderness EXTREMITIES: Normal motion all extremities, no cyanosis, no edema. NEUROLOGIC: Alert and oriented, no acute motor or sensory deficits, no focal weakness, right upper face weakness SKIN: No rash, no jaundice, no diaphoresis. PSYCH: Appropriate GCS: 15 ED Course: Times/Reassessments: Multiple repeat evaluations mild improvement in pain but continues to have weakness in the right upper face. Agreeable to [facility] for further work-up and evaluation Critical Care: I have personally spent 30 minutes of critical care time in the direct management of this patient. Acute Stroke Alert activation with consideration of thrombolytic. This was a life/limb threatening event. This 30 minutes is in excess of all separately billable procedures. David Callahan MD Past Med/Surg History Medical History Asthma 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 Chest pain Chest tightness Chronic dyspnea Edema History of ventricular tachycardia Hypertension Restless leg syndrome Subacute cough Surgical History No significant past surgical history Social History Smoking Status: Never smoker Hx Alcohol Use: No Hx Substance Use: No Preferred Language: Yi Communication Ability: Effective Electrocardiograph Technician Required: No Beliefs That Will Affect Care: None Current Living Situation: Spouse current occupation: [employer] Other Information That Helps Us Care for You: No Feels Safe at Home: Yes Safety Concerns: Feels Safe At This Time Assistive Devices: None Allergies Allergies Allergy/AdvReac Type Severity Reaction Status Date / Time ceftriaxone [From Rocephin] Allergy Mild Hives Verified 01/22/23 12:00 amoxicillin Allergy Unknown RX AN Verified 01/22/23 12:00 clavulanic acid Allergy Unknown RX AN Verified 01/22/23 12:00 erythromycin base Allergy Unknown REACTION Verified 01/22/23 12:00 TO PCN AND AUGMENTIN Penicillins Allergy Unknown REACTION Verified 01/22/23 12:00 AN - UNKNOWN Tetracyclines Allergy Unknown VOMITING Verified 01/22/23 12:00 AND RASH banana AdvReac Vomiting Unverified 01/22/23 12:00 Home Meds Home Medications Medication Instructions Recorded Confirmed albuterol sulfate 90 mcg/actuation 1 puffs inhalation .COMPLEX PRN 08/17/19 01/30/23 breath activated powder inhaler Shortness Of Breath Or Wheezing ascorbate calcium (vitamin C) 500 500 mg PO DAILY 08/17/19 01/30/23 mg tablet cholecalciferol (vitamin D3) 10 400 units PO DAILY 08/17/19 01/30/23 mcg (400 unit) capsule fluticasone propionate 50 See Rx Instructions intranasal 08/17/19 01/30/23 mcg/actuation nasal DAILY spray,suspension (Children's Flonase Allergy Relief) montelukast 10 mg tablet 10 mg PO QAM 08/17/19 01/30/23 diazepam 5 mg tablet 5 mg PO HS 09/03/22 01/30/23 melatonin 5 mg capsule 5 mg PO HS 09/03/22 01/30/23 calcium carb-Ca gluc 500 mg 3 tab PO DAILY 01/05/23 01/30/23 calcium-magnesium ox-Mg gluc 250 mg tablet (Calcium Magnesium) multivitamin 1 tab PO DAILY 01/05/23 01/30/23 fluticasone 100 mcg-salmeterol 50 1 inh inhalation BID 01/12/23 01/30/23 mcg/dose blistr powdr for inhalation (Advair Diskus) famotidine 20 mg tablet (Pepcid) 20 mg PO BID 01/30/23 01/30/23 furosemide 20 mg tablet (Lasix) 20 mg PO DAILY PRN Weight Gain 01/30/23 01/30/23 Previous Rx's Medication Instructions Recorded cyclobenzaprine 10 mg tablet 10 mg PO HS #30 tabs 08/17/19 carvedilol 25 mg tablet 50 mg PO BID #180 tabs 01/13/23 apixaban 5 mg tablet (Eliquis) 5 mg PO BID #180 tabs 01/22/23 digoxin 250 mcg (0.25 mg) tablet 0.25 mg PO QAM #90 tabs 01/22/23 sacubitril 49 mg-valsartan 51 mg 1 tab PO BID #180 tabs 01/22/23 tablet (Entresto) Results & Data (ED) Vital Signs Vital Signs - 24 hr 01/30/23 17:58 01/30/23 18:08 01/30/23 19:24 Temperature 36.6 C Temperature Source Temporal Artery Scan Pulse Rate 72 64 Pulse Rate [Apical] 64 Pulse Rate from SpO2 Sensor Respiratory Rate 18 17 Respiratory Effort / Characteristics Non-Labored Spontaneous Respiratory Depth Normal Normal Blood Pressure 140/82 Blood Pressure [Right Arm] 137/93 Blood Pressure Mean 101 Blood Pressure Mean [Right Arm] 107 Pulse Oximetry 94 99 Oxygen Delivery Method Room Air Non-rebreather Oxygen Flow Rate 10 Sepsis Recent Fever Within 48 Hours No Sepsis New/Unexplained Change in Mental Status No Sepsis Action Taken by Nursing No Action Required 01/30/23 19:22 01/30/23 19:30 01/30/23 20:00 Temperature Temperature Source Pulse Rate 62 64 82 Pulse Rate [Apical] Pulse Rate from SpO2 Sensor 60 Respiratory Rate 23 17 18 Respiratory Effort / Characteristics Respiratory Depth Blood Pressure 137/93 Blood Pressure [Right Arm] Blood Pressure Mean 107 Blood Pressure Mean [Right Arm] Pulse Oximetry 99 Oxygen Delivery Method Non-rebreather Oxygen Flow Rate 10 Sepsis Recent Fever Within 48 Hours Sepsis New/Unexplained Change in Mental Status Sepsis Action Taken by Nursing 01/30/23 20:16 01/30/23 20:30 Temperature Temperature Source Pulse Rate 66 67 Pulse Rate [Apical] Pulse Rate from SpO2 Sensor Respiratory Rate 19 21 Respiratory Effort / Characteristics Respiratory Depth Blood Pressure 151/103 H Blood Pressure [Right Arm] Blood Pressure Mean 119 Blood Pressure Mean [Right Arm] Pulse Oximetry 99 98 Oxygen Delivery Method Oxygen Flow Rate Sepsis Recent Fever Within 48 Hours Sepsis New/Unexplained Change in Mental Status Sepsis Action Taken by Nursing Laboratory Data 01/30/23 18:08 01/30/23 18:08 Lab Results 01/30/23 01/30/23 01/30/23 Range/Units 18:08 18:08 18:08 WBC 7.34 (4.8-10.8) K/ul RBC 5.63 (4.70-6.10) M/uL Hgb 16.2 (14.0-18.0) g/dl Hct 47.7 (42.0-52.0) % MCV 84.7 (80.0-100.0) fL MCH 28.8 (25.0-34.0) pg MCHC 34.0 (32.0-36.0) g/dL RDW Std Deviation 41.8 (36.4-46.3) fL RDW Coeff of Nam 13.5 (11.5-14.5) % Plt Count 233 (130-400) K/uL MPV 11.2 (9.4-12.4) fL Immature Gran % (Auto) 0.3 % Neut % (Auto) 60.4 % Lymph % (Auto) 25.1 % Wright % (Auto) 9.0 % Eos % (Auto) 4.9 % Baso % (Auto) 0.3 % Neut # (Auto) 4.44 (1.40-6.50) K/uL Lymph # (Auto) 1.84 (1.2-3.4) K/uL Wright # (Auto) 0.66 H (0.11-0.59) K/uL Eos # (Auto) 0.36 (0-0.50) K/uL Baso # (Auto) 0.02 (0-0.2) K/uL Immature Gran # (Auto) 0.02 (0.01-0.20) K/uL ESR (0-20) mm/hr PT 10.9 (9.0-12.0) Seconds INR 1.0 (0.9-1.1) APTT 29.3 (21.0-31.0) Seconds PTT Ratio 1.1 Sodium 140 (136-145) mmol/L Potassium 3.5 (3.5-5.1) mmol/L Chloride 103 (98-107) mmol/L Carbon Dioxide 30 (21-32) mmol/L Anion Gap 7 (3-11) BUN 17 (6-23) mg/dl Creatinine 1.28 (0.6-1.4) mg/dl Est Cr Clr Drug Dosing 92.2 ml/min Est GFR ( Amer) 72.5 ml/min Est GFR (Non-Af Amer) 62.6 ml/min BUN/Creatinine Ratio 13.3 (10-20) Glucose 102 H (70-99(Fasting)) mg/dl POC Glucose (70-99) mg/dl Calcium 9.4 (8.5-10.1) mg/dl Magnesium 2.3 (1.7-2.4) mg/dl Total Bilirubin 0.6 (0.2-1.0) mg/dl AST 23 (13-39) U/L ALT 18 (7-52) U/L Alkaline Phosphatase 50 (34-104) U/L Troponin I High Sens 19.4 (0-20) pg/ml C-Reactive Protein 0.77 H (0-0.5) mg/dl Total Protein 6.9 (6.0-8.3) gm/dl Albumin 4.2 (3.4-5.0) gm/dl Globulin 2.7 (2.5-4.0) gm/dl Albumin/Globulin Ratio 1.6 (0.9-2) Digoxin (0.8-2.0) ng/ml Lyme Disease IgG Ab (Negative) Lyme Disease IgM Ab (Negative) SARS-CoV-2, RNA, NAAT (NEGATIVE) Blood Type Antibody Screen 01/30/23 01/30/23 01/30/23 Range/Units 18:08 18:08 18:31 WBC (4.8-10.8) K/ul RBC (4.70-6.10) M/uL Hgb (14.0-18.0) g/dl Hct (42.0-52.0) % MCV (80.0-100.0) fL MCH (25.0-34.0) pg MCHC (32.0-36.0) g/dL RDW Std Deviation (36.4-46.3) fL RDW Coeff of Nam (11.5-14.5) % Plt Count (130-400) K/uL MPV (9.4-12.4) fL Immature Gran % (Auto) % Neut % (Auto) % Lymph % (Auto) % Wright % (Auto) % Eos % (Auto) % Baso % (Auto) % Neut # (Auto) (1.40-6.50) K/uL Lymph # (Auto) (1.2-3.4) K/uL Wright # (Auto) (0.11-0.59) K/uL Eos # (Auto) (0-0.50) K/uL Baso # (Auto) (0-0.2) K/uL Immature Gran # (Auto) (0.01-0.20) K/uL ESR (0-20) mm/hr PT (9.0-12.0) Seconds INR (0.9-1.1) APTT (21.0-31.0) Seconds PTT Ratio Sodium (136-145) mmol/L Potassium (3.5-5.1) mmol/L Chloride (98-107) mmol/L Carbon Dioxide (21-32) mmol/L Anion Gap (3-11) BUN (6-23) mg/dl Creatinine (0.6-1.4) mg/dl Est Cr Clr Drug Dosing ml/min Est GFR ( Amer) ml/min Est GFR (Non-Af Amer) ml/min BUN/Creatinine Ratio (10-20) Glucose (70-99(Fasting)) mg/dl POC Glucose (70-99) mg/dl Calcium (8.5-10.1) mg/dl Magnesium (1.7-2.4) mg/dl Total Bilirubin (0.2-1.0) mg/dl AST (13-39) U/L ALT (7-52) U/L Alkaline Phosphatase (34-104) U/L Troponin I High Sens (0-20) pg/ml C-Reactive Protein (0-0.5) mg/dl Total Protein (6.0-8.3) gm/dl Albumin (3.4-5.0) gm/dl Globulin (2.5-4.0) gm/dl Albumin/Globulin Ratio (0.9-2) Digoxin 1.3 (0.8-2.0) ng/ml Lyme Disease IgG Ab Negative (Negative) Lyme Disease IgM Ab Negative (Negative) SARS-CoV-2, RNA, NAAT (NEGATIVE) Blood Type O Positive Antibody Screen NEGATIVE 01/30/23 01/30/23 01/30/23 Range/Units 18:31 19:08 19:45 WBC (4.8-10.8) K/ul RBC (4.70-6.10) M/uL Hgb (14.0-18.0) g/dl Hct (42.0-52.0) % MCV (80.0-100.0) fL MCH (25.0-34.0) pg MCHC (32.0-36.0) g/dL RDW Std Deviation (36.4-46.3) fL RDW Coeff of Nam (11.5-14.5) % Plt Count (130-400) K/uL MPV (9.4-12.4) fL Immature Gran % (Auto) % Neut % (Auto) % Lymph % (Auto) % Wright % (Auto) % Eos % (Auto) % Baso % (Auto) % Neut # (Auto) (1.40-6.50) K/uL Lymph # (Auto) (1.2-3.4) K/uL Wright # (Auto) (0.11-0.59) K/uL Eos # (Auto) (0-0.50) K/uL Baso # (Auto) (0-0.2) K/uL Immature Gran # (Auto) (0.01-0.20) K/uL ESR 18 (0-20) mm/hr PT (9.0-12.0) Seconds INR (0.9-1.1) APTT (21.0-31.0) Seconds PTT Ratio Sodium (136-145) mmol/L Potassium (3.5-5.1) mmol/L Chloride (98-107) mmol/L Carbon Dioxide (21-32) mmol/L Anion Gap (3-11) BUN (6-23) mg/dl Creatinine (0.6-1.4) mg/dl Est Cr Clr Drug Dosing ml/min Est GFR ( Amer) ml/min Est GFR (Non-Af Amer) ml/min BUN/Creatinine Ratio (10-20) Glucose (70-99(Fasting)) mg/dl POC Glucose 97 (70-99) mg/dl Calcium (8.5-10.1) mg/dl Magnesium (1.7-2.4) mg/dl Total Bilirubin (0.2-1.0) mg/dl AST (13-39) U/L ALT (7-52) U/L Alkaline Phosphatase (34-104) U/L Troponin I High Sens (0-20) pg/ml C-Reactive Protein (0-0.5) mg/dl Total Protein (6.0-8.3) gm/dl Albumin (3.4-5.0) gm/dl Globulin (2.5-4.0) gm/dl Albumin/Globulin Ratio (0.9-2) Digoxin (0.8-2.0) ng/ml Lyme Disease IgG Ab (Negative) Lyme Disease IgM Ab (Negative) SARS-CoV-2, RNA, NAAT NEGATIVE (NEGATIVE) Blood Type Antibody Screen Administered Medications Apixaban (Apixaban 5 Mg Tablet) 5 mg PO BID [facility] Stop: 03/01/23 22:18 Last Admin: 01/31/23 00:26 Dose: 5 mg Documented By: CLC Carvedilol (Carvedilol 25 Mg Tab) 50 mg PO BID [facility] Stop: 03/01/23 22:18 Last Admin: 01/31/23 00:26 Dose: 50 mg Documented By: CLC Acetaminophen (Ofirmev) 1,000 mg in 100 mls @ 400 mls/hr IV Q8H PRN PRN Reason: pain (1,2,3), fever, headache Stop: 02/02/23 21:27 Last Infusion: 01/31/23 00:17 Dose: 0 mls/hr Documented By: Admin: 01/31/23 00:01 Dose: 400 mls/hr Documented By: CLC Melatonin (Melatonin 3 Mg Tab) 6 mg PO HS PRN PRN Reason: Sleep Stop: 03/01/23 22:47 Last Admin: 01/31/23 00:25 Dose: 6 mg Documented By: CLC Ondansetron HCl (Ondansetron Inj 2 Mg/Ml 2 Ml Vial) 4 mg IV Q6H PRN PRN Reason: Nausea And Vomiting Stop: 03/01/23 23:20 Last Admin: 01/30/23 23:55 Dose: 4 mg Documented By: CLC Sacubitril/Valsartan (Valsartan/Sacubitril 51/49 Mg Tab) 1 tab PO BID [facility] Stop: 03/01/23 22:18 Last Admin: 01/31/23 00:26 Dose: 1 tab Documented By: CLC Discontinued Medications Dexamethasone Sodium Phosphate (DexamethasonePf 10 Mg/Ml Vial) 10 mg IV NOW ONE Stop: 01/30/23 18:38 Last Admin: 01/30/23 18:48 Dose: 10 mg Documented By: OAM Hydromorphone HCl (Hydromorphone Inj 0.5 Mg/0.5 Ml Syr) 0.5 mg IV NOW STA Stop: 01/30/23 18:38 Last Admin: 01/30/23 18:48 Dose: 0.5 mg Documented By: KILEY Magnesium Sulfate/Dextrose (Magnesium Sulfate / D5w) 1 gm in 100 mls @ 100 mls/hr IV NOW STA Stop: 01/30/23 19:36 Last Infusion: 01/30/23 20:18 Dose: 0 mls/hr Documented By: Admin: 01/30/23 18:48 Dose: 100 mls/hr Documented By: KILEY Acetaminophen (Ofirmev) 1,000 mg in 100 mls @ 400 mls/hr IV NOW STA Stop: 01/30/23 18:51 Last Infusion: 01/30/23 19:24 Dose: 0 mls/hr Documented By: Admin: 01/30/23 18:48 Dose: 400 mls/hr Documented By: KILEY Lorazepam (Lorazepam 2 Mg/1 Ml Vial) 0.5 mg IV NOW STA Stop: 01/30/23 19:29 Last Admin: 01/30/23 19:41 Dose: 0.5 mg Documented By: ADELE Lorazepam (Lorazepam 2 Mg/1 Ml Vial) 0.5 mg IV NOW STA Stop: 01/30/23 20:39 Last Admin: 01/30/23 20:48 Dose: 0.5 mg Documented By: ADELE Ondansetron HCl (Ondansetron Inj 2 Mg/Ml 2 Ml Vial) 4 mg IV NOW STA Stop: 01/30/23 20:39 Last Admin: 01/30/23 20:49 Dose: 4 mg Documented By: ADELE Imaging Data Radiologist's Impression: Head CT 01/30/23 18:[address] OF THE BRAIN; CT ANGIOGRAM OF THE BRAIN; CT ANGIOGRAM OF THE NECK CLINICAL HISTORY: Neurological deficit. Stroke like symptoms. COMPARISON STUDY: CT of the brain dated 06/27/2018. TECHNIQUE: Unenhanced axial CT scan of the brain is performed. Subsequently, following the IV administration of 110 of Optiray 320, CT angiogram of the head and neck was performed from the aortic arch to the vertex. Images are reviewed in the axial, sagittal, and coronal planes. 3-D MIPS images are created and assessed. IV contrast was administered without complication. All measurements were calculated based on NASCET criteria. A dose lowering technique was utilized adhering to the principles of ALARA. CT DOSE: 1196.29 mGy.cm FINDINGS: Brain parenchyma: The brain parenchyma is normal in appearance. There is no hemorrhage, mass effect, or evidence of acute territorial ischemia by CT criteria. There is no evidence of enhancing mass lesion on the angiogram phase images. The ventricles, sulci, and cisterns are normal in configuration. Lopez- white matter differentiation is preserved. No extra-axial fluid collection is seen. Thoracic aorta: Visualized portions of the thoracic aorta are normal in caliber. The aortic arch demonstrates bovine variant anatomy. Right carotid arterial system: The right common carotid artery is widely patent, as are the right internal and external carotid arteries. Minimal calcified pl aque is seen in the carotid bulb. Left carotid arterial system: The left common carotid artery is widely patent, as are the left internal and external carotid arteries. Vertebral arteries: The vertebral arteries are widely patent bilaterally noting left-sided dominance. Subclavian arteries: Widely patent bilaterally. Intracranial vasculature: The internal carotid arteries are patent at the skull base, as are the anterior and middle cerebral arteries bilaterally. The vertebrobasilar system and posterior cerebral arteries are widely patent. There are bilateral posterior communicating arteries. The left vertebral artery is dominant. There is no aneurysm, high-grade stenosis, or focal vessel cut off seen throughout the intracranial circulation. Jugular veins: Patent bilaterally. Dural sinuses: Patent. Lung apices: Partially visualized upper lobe lung parenchyma appears clear. Soft tissues: The visualized pharyngeal soft tissues are normal in appearance noting angiographic phase technique. The oropharyngeal airway appears widely patent. The salivary and thyroid glands are normal in appearance. No cervical lymphadenopathy is seen. Skeletal structures: The calvarium appears intact. The cervical spine is within normal limits. Orbits: The bony orbits are intact. Orbital contents are normal as visualized. Sinuses and mastoids: The paranasal sinuses are clear. The mastoid air cells are well pneumatized. IMPRESSION: 1. There is no hemorrhage, mass effect, or evidence of acute territorial ischemia by CT criteria. 2. Unremarkable CT angiogram of the brain. 3. Unremarkable CT angiogram of the neck. ACT 112: Negative or not required by law. Electronically signed by: Reji Lauren M.D. 01/30/2023 6:32 PM Head CTA 01/30/23 18:[address] OF THE BRAIN; CT ANGIOGRAM OF THE BRAIN; CT ANGIOGRAM OF THE NECK CLINICAL HISTORY: Neurological deficit. Stroke like symptoms. COMPARISON STUDY: CT of the brain dated 06/27/2018. TECHNIQUE: Unenhanced axial CT scan of the brain is performed. Subsequently, following the IV administration of 110 of Optiray 320, CT angiogram of the head and neck was performed from the aortic arch to the vertex. Images are reviewed in the axial, sagittal, and coronal planes. 3-D MIPS images are created and assessed. IV contrast was administered without complication. All measurements were calculated based on NASCET criteria. A dose lowering technique was utilized adhering to the principles of ALARA. CT DOSE: 1196.29 mGy.cm FINDINGS: Brain parenchyma: The brain parenchyma is normal in appearance. There is no hemorrhage, mass effect, or evidence of acute territorial ischemia by CT criteria. There is no evidence of enhancing mass lesion on the angiogram phase images. The ventricles, sulci, and cisterns are normal in configuration. Lopez- white matter differentiation is preserved. No extra-axial fluid collection is seen. Thoracic aorta: Visualized portions of the thoracic aorta are normal in caliber. The aortic arch demonstrates bovine variant anatomy. Right carotid arterial system: The right common carotid artery is widely patent, as are the right internal and external carotid arteries. Minimal calcified pl aque is seen in the carotid bulb. Left carotid arterial system: The left common carotid artery is widely patent, as are the left internal and external carotid arteries. Vertebral arteries: The vertebral arteries are widely patent bilaterally noting left-sided dominance. Subclavian arteries: Widely patent bilaterally. Intracranial vasculature: The internal carotid arteries are patent at the skull base, as are the anterior and middle cerebral arteries bilaterally. The vertebrobasilar system and posterior cerebral arteries are widely patent. There are bilateral posterior communicating arteries. The left vertebral artery is dominant. There is no aneurysm, high-grade stenosis, or focal vessel cut off seen throughout the intracranial circulation. Jugular veins: Patent bilaterally. Dural sinuses: Patent. Lung apices: Partially visualized upper lobe lung parenchyma appears clear. Soft tissues: The visualized pharyngeal soft tissues are normal in appearance noting angiographic phase technique. The oropharyngeal airway appears widely patent. The salivary and thyroid glands are normal in appearance. No cervical lymphadenopathy is seen. Skeletal structures: The calvarium appears intact. The cervical spine is within normal limits. Orbits: The bony orbits are intact. Orbital contents are normal as visualized. Sinuses and mastoids: The paranasal sinuses are clear. The mastoid air cells are well pneumatized. IMPRESSION: 1. There is no hemorrhage, mass effect, or evidence of acute territorial ischemia by CT criteria. 2. Unremarkable CT angiogram of the brain. 3. Unremarkable CT angiogram of the neck. ACT 112: Negative or not required by law. Electronically signed by: Reji Lauren M.D. 01/30/2023 6:32 PM Neck CTA 01/30/23 18:[address] OF THE BRAIN; CT ANGIOGRAM OF THE BRAIN; CT ANGIOGRAM OF THE NECK CLINICAL HISTORY: Neurological deficit. Stroke like symptoms. COMPARISON STUDY: CT of the brain dated 06/27/2018. TECHNIQUE: Unenhanced axial CT scan of the brain is performed. Subsequently, following the IV administration of 110 of Optiray 320, CT angiogram of the head and neck was performed from the aortic arch to the vertex. Images are reviewed in the axial, sagittal, and coronal planes. 3-D MIPS images are created and assessed. IV contrast was administered without complication. All measurements were calculated based on NASCET criteria. A dose lowering technique was utilized adhering to the principles of ALARA. CT DOSE: 1196.29 mGy.cm FINDINGS: Brain parenchyma: The brain parenchyma is normal in appearance. There is no hemorrhage, mass effect, or evidence of acute territorial ischemia by CT criteria. There is no evidence of enhancing mass lesion on the angiogram phase images. The ventricles, sulci, and cisterns are normal in configuration. Lopez- white matter differentiation is preserved. No extra-axial fluid collection is seen. Thoracic aorta: Visualized portions of the thoracic aorta are normal in caliber. The aortic arch demonstrates bovine variant anatomy. Right carotid arterial system: The right common carotid artery is widely patent, as are the right internal and external carotid arteries. Minimal calcified pl aque is seen in the carotid bulb. Left carotid arterial system: The left common carotid artery is widely patent, as are the left internal and external carotid arteries. Vertebral arteries: The vertebral arteries are widely patent bilaterally noting left-sided dominance. Subclavian arteries: Widely patent bilaterally. Intracranial vasculature: The internal carotid arteries are patent at the skull base, as are the anterior and middle cerebral arteries bilaterally. The vertebrobasilar system and posterior cerebral arteries are widely patent. There are bilateral posterior communicating arteries. The left vertebral artery is dominant. There is no aneurysm, high-grade stenosis, or focal vessel cut off seen throughout the intracranial circulation. Jugular veins: Patent bilaterally. Dural sinuses: Patent. Lung apices: Partially visualized upper lobe lung parenchyma appears clear. Soft tissues: The visualized pharyngeal soft tissues are normal in appearance noting angiographic phase technique. The oropharyngeal airway appears widely patent. The salivary and thyroid glands are normal in appearance. No cervical lymphadenopathy is seen. Skeletal structures: The calvarium appears intact. The cervical spine is within normal limits. Orbits: The bony orbits are intact. Orbital contents are normal as visualized. Sinuses and mastoids: The paranasal sinuses are clear. The mastoid air cells are well pneumatized. IMPRESSION: 1. There is no hemorrhage, mass effect, or evidence of acute territorial ischemia by CT criteria. 2. Unremarkable CT angiogram of the brain. 3. Unremarkable CT angiogram of the neck. ACT 112: Negative or not required by law. Electronically signed by: Reji Lauren M.D. 01/30/2023 6:32 PM Discharge Plan Visit Data Chief Complaint: Headache Stated Complaint: HEADACHE OVER R EYE,DIZZINESS,EYE CLOSED, ELIQUIS ED Provider: David Callahan Discharge Problem: Facial droop, Chest pain, Right-sided headache Patient Disposition: Admitted As Inpatient Discharge Instructions Interventions: ED Discharge Assessment Last Done: 01/30/23 21:51 Chest pain Qualifiers: Chest pain type: unspecified Qualified Code(s): R07.9 - Chest pain, unspecified
[2023-01-30 18:30] LABS: Basophils # (auto) 0.02 K/uL (0-0.2); Basophils % (auto) 0.3 %; Eosinophils # (auto) 0.36 K/uL (0-0.50); Eosinophils % (auto) 4.9 %; Hematocrit (blood only) 47.7 % (42.0-52.0); Hemoglobin 16.2 g/dl (14.0-18.0); Immature Granulocytes # (auto) 0.02 K/uL (0.01-0.20); Immature Granulocytes % (auto) 0.3 %; Lymphocytes # (auto) 1.84 K/uL (1.2-3.4); Lymphocytes % (auto) 25.1 %; Mean Corpuscular Hemoglobin 28.8 pg (25.0-34.0); Mean Corpuscular Volume 84.7 fL (80.0-100.0); Mean Platelet Volume 11.2 fL (9.4-12.4); Monocytes # (auto) 0.66 K/uL (0.11-0.59); Neutrophils # (auto) 4.44 K/uL (1.40-6.50); Neutrophils % (auto) 60.4 %; Platelet Count 233 K/uL (130-400); RDW Coefficient of Variation 13.5 % (11.5-14.5); RDW Standard Deviation 41.8 fL (36.4-46.3); Red Blood Count 5.63 M/uL (4.70-6.10); White Blood Count 7.34 K/ul (4.8-10.8)
--- NOTE | 2023-01-30 18:34 | CT Scan Report ---
UNENHANCED CT OF THE BRAIN; CT ANGIOGRAM OF THE BRAIN; CT ANGIOGRAM OF THE NECK CLINICAL HISTORY: Neurological deficit. Stroke like symptoms. COMPARISON STUDY: CT of the brain dated 06/27/2018. TECHNIQUE: Unenhanced axial CT scan of the brain is performed. Subsequently, following the IV adminis tration of 110 of Optiray 320, CT angiogram of the head and neck was performed from the aortic arch t o the vertex. Images are reviewed in the axial, sagittal, and coronal planes. 3-D MIPS images are cre ated and assessed. IV contrast was administered without complication. All measurements were calculate d based on NASCET criteria. A dose lowering technique was utilized adhering to the principles of ALA RA. CT DOSE: 1196.29 mGy.cm FINDINGS: Brain parenchyma: The brain parenchyma is normal in appearance. There is no hemorrhage, mass effect, or evidence of acute territorial ischemia by CT criteria. There is no evidence of enhancing mass lesi on on the angiogram phase images. The ventricles, sulci, and cisterns are normal in configuration. Gr ay-white matter differentiation is preserved. No extra-axial fluid collection is seen. Thoracic aorta: Visualized portions of the thoracic aorta are normal in caliber. The aortic arch demo nstrates bovine variant anatomy. Right carotid arterial system: The right common carotid artery is widely patent, as are the right int ernal and external carotid arteries. Minimal calcified plaque is seen in the carotid bulb. Left carotid arterial system: The left common carotid artery is widely patent, as are the left international relations teacher al and external carotid arteries. Vertebral arteries: The vertebral arteries are widely patent bilaterally noting left-sided dominance. Subclavian arteries: Widely patent bilaterally. Intracranial vasculature: The internal carotid arteries are patent at the skull base, as are the ante rior and middle cerebral arteries bilaterally. The vertebrobasilar system and posterior cerebral regina derick are widely patent. There are bilateral posterior communicating arteries. The left vertebral regina ry is dominant. There is no aneurysm, high-grade stenosis, or focal vessel cut off seen throughout th e intracranial circulation. Jugular veins: Patent bilaterally. Dural sinuses: Patent. Lung apices: Partially visualized upper lobe lung parenchyma appears clear. Soft tissues: The visualized pharyngeal soft tissues are normal in appearance noting angiographic pha se technique. The oropharyngeal airway appears widely patent. The salivary and thyroid glands are nor mal in appearance. No cervical lymphadenopathy is seen. Skeletal structures: The calvarium appears intact. The cervical spine is within normal limits. Orbits: The bony orbits are intact. Orbital contents are normal as visualized. Sinuses and mastoids: The paranasal sinuses are clear. The mastoid air cells are well pneumatized. IMPRESSION: 1. There is no hemorrhage, mass effect, or evidence of acute territorial ischemia by CT criteria. 2. Unremarkable CT angiogram of the brain. 3. Unremarkable CT angiogram of the neck. ACT 112: Negative or not required by law. Electronically signed by: Reji Lauren M.D. 01/30/2023 6:32 PM
[2023-01-30] MEDS ORDERED: ACETAMINOPHEN 1,000 MG/100 ML VIAL IV STA (18:37)
[2023-01-30] MEDS ORDERED: HYDROmorphone INJ 0.5 MG/0.5 ML SYR IV STA (18:37)
[2023-01-30] MEDS ORDERED: MAGNESIUM SULFATE / D5W 1 GM/100 ML BAG IV STA (18:37)
[2023-01-30] MEDS ORDERED: dexAMETHasone**PF** 10 MG/ML VIAL IV ONE (18:37)
[2023-01-30 18:44] LABS: Creatinine Clr Calc Pharmacy 92.2 ml/min; Potassium 3.5 mmol/L (3.5-5.1); Total Protein 6.9 gm/dl (6.0-8.3)
[2023-01-30 18:53] LABS: Albumin Globulin Ratio 1.6 (0.9-2); Albumin Level 4.2 gm/dl (3.4-5.0); BUN Creatinine Ratio 13.3 (10-20); Bilirubin,Total 0.6 mg/dl (0.2-1.0); C Reactive Protein 0.77 mg/dl (0-0.5); Calcium 9.4 mg/dl (8.5-10.1); Est GFR (African American) 72.5 ml/min; Est GFR (Non-African American) 62.6 ml/min; Globulin 2.7 gm/dl (2.5-4.0); Magnesium 2.3 mg/dl (1.7-2.4)
[2023-01-30 18:59] LABS: Troponin I High Sensitivity 19.4 pg/ml (0-20)
[2023-01-30 19:20] LABS: Partial Thromboplastin Ratio 1.1; Partial Thromboplastin Time 29.3 Seconds (21.0-31.0); Prothrombin Time 10.9 Seconds (9.0-12.0)
[2023-01-30] MEDS ORDERED: LORazepam 2 MG/1 ML VIAL IV STA ×2 (19:28→20:38)
[2023-01-30 19:45] LABS: Lyme Ab IgG w/WB Rflx Negative (Negative); Lyme Ab IgM w/WB Rflx Negative (Negative)
[2023-01-30] MEDS ORDERED: ONDANSETRON INJ 2 MG/ML 2 ML VIAL IV STA (20:38)
[2023-01-30] MEDS ORDERED: PHARMACIST DISCHARGE MED REC CONSULT PRN (20:52)
--- NOTE | 2023-01-30 20:52 | History & Physical Report ---
Patient seen and examined. I agree with the history and physical and the plan as outlined in the PA note. Date of Service January 30, 2023 Assessment & Plan (1) Weakness on right side of face: Plan: -Admit to the PCU on tele -The patient is currently afebrile, hemodynamically stable, and stable on RA -The patient experienced sudden onset of right headache and right sided facial weakness at approximately 4 pm today -Stroke alert called in the ED, CT of the head and CTA of the head/neck were negative for acute findings -[place] telestroke suggested treating for an atypical migraine but his symptoms have not resolved -Patient has been on Eliquis since 01/08 without other medication changes, however, he was recently diagnosed with afib so embolic stroke cannot entirely be ruled out at this time -Physical exam findings are not consistent with Zurita's Palsy as he is having difficulty opening his eye and eyebrow raise is decreased on the right side -Will obtain MRI of the brain without con tonight for further assessment, TTE in the am -Dysphagia screen ordered, speech therapy, PT/OT tomorrow -Q4h neuro checks ordered -Not currently on a Statin, follow am A1c and lipid panels -Continue home Eliquis at this time -BL SCD's and Eliquis for DVT PPX -AM CBC, CMP, Mag, PT/INR, Lipid panel and A1c (2) Chest tightness: Plan: -Patient described chest tightness after arrival to the ED, prior to my exam, this chest tightness has now resolved -Multiple ECG's obtained since ED arrival as there was artifact disrupting an accurate read -Repeat ECG obtained after admission now without acute ST segment or T-wave changes -Will repeat another high sensitivity trop now and continue to monitor on tele (3) HFrEF (heart failure with reduced ejection fraction): Plan: -Currently examines euvolemic -Continue entresto (4) Atrial fibrillation: Plan: -Stable -Continue Carvedilol, Dig, and Eliquis -Monitor AM Dig level (5) 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: Plan: -Stable on RA -Continue Advair and prn albuterol (6) Hypertension: Plan: -Stable -Continue Carvedilol Plan The patient was discussed with Dr. Lu at the time of the admission History of Present Illness Chief Complaint: Right facial weakness Primary Care Provider: Amrit Alvarez MD Wilder is a 57-year-old male with a past medical history significant for atrial fibrillation (started on Eliquis this month) , cardiomyopathy, HFrEF (LVEF of 25-30% as of 01/16/23), AIVR, hypertension, and asthma who presented to the [facility] ED on 01/30/23 with complaints of acute, right-sided facial weakness/numbness. In the ED the patient was found to be afebrile, hemodynamically stable, and and stable on RA. Labs were significant for a CBC WNL, stable Cr. at 1.28, stable electrolytes, glucose of 102, LFT's WNL, CRP of 0.77, dig level of 1.3, lyme IgG and IgM negative. CT of the head and CTA of the head/neck was read as "1. There is no hemorrhage, mass effect, or evidence of acute territorial ischemia by CT criteria. 2. Unremarkable CT angiogram of the brain. 3. Unremarkable CT angiogram of the neck.". The ED staff spoke with Tele stroke who thought the patient's symptoms were more likely associated with an atypical migraine. At that time they recommended the ED treat the patient for a migraine and monitor for improvement of symptoms. They recommended admission for further TIA/stroke workup if the patient's symptoms did not resolve within a few hours. TNK was not administered due to the patient being anticoagulated on Eliquis. Prior to admission the patient was given 4 mg IV zofran, 1gm IV magnesium, 0.5 mg IV ativan, 0.5 mg IV dilaudid, 10 mg IV dexamethasone, and 1g IV tylenol. At the time of the exam the patient was sitting up in bed in no acute distress with his sitting bedside. He states that he was in his normal state of health when he woke up this am. He went to Cardiac rehab around noon and then ran some more errands in the afternoon. He was driving home at approximately 4:15 pm when he developed a sudden right-sided headache. He noticed some irritation in his right eye while driving but was not sure if he experienced a change in vision. By the time he got home his noticed that his eye appeared irritated with an injected sclera and some swelling around the right eye. They then noticed the weakness/dropping of the right side of his face which prompted him to come to the ED. He denies recent fevers, chills, insect bites, weakness in his extremities, chest pain, SOB, abd pain, dysuria, hematuria, and recent trauma prior to ED arrival. He does mention that he had some chest tightness approximately an hour before my exam, this has resolved at the time of my exam. He states that he has a long history of migraines, especially occipital migraines but this does not feel like his normal ones. He experienced one episode of nausea and vomiting after receiving medications in the ED but is feeling ok now. He has not missed a dose of Eliquis since starting it on 01/08/23. He still has a moderate headache at this time, approximately a 5/10. He has had no other medication changes since his last admission and denies recent illness. Please refer to Dr. Lu's attestation for any changes to the treatment plan Allergies Allergy/AdvReac Type Severity Reaction Status Date / Time ceftriaxone [From Rocephin] Allergy Mild Hives Verified 01/22/23 12:00 amoxicillin Allergy Unknown RX AN Verified 01/22/23 12:00 INFANT clavulanic acid Allergy Unknown RX AN Verified 01/22/23 12:00 erythromycin base Allergy Unknown REACTION Verified 01/22/23 12:00 TO PCN AND AUGMENTIN Penicillins Allergy Unknown REACTION Verified 01/22/23 12:00 AN - UNKNOWN Tetracyclines Allergy Unknown VOMITING Verified 01/22/23 12:00 AND RASH banana AdvReac Vomiting Unverified 01/22/23 12:00 Home Medications Medication Instructions Recorded Confirmed Type albuterol sulfate 90 mcg/actuation 1 puffs inhalation .COMPLEX PRN 08/17/19 01/30/23 History breath activated powder inhaler Shortness Of Breath Or Wheezing ascorbate calcium (vitamin C) 500 500 mg PO DAILY 08/17/19 01/30/23 History mg tablet cholecalciferol (vitamin D3) 10 400 units PO DAILY 08/17/19 01/30/23 History mcg (400 unit) capsule cyclobenzaprine 10 mg tablet 10 mg PO HS #30 tabs 08/17/19 01/30/23 Rx fluticasone propionate 50 See Rx Instructions intranasal 08/17/19 01/30/23 History mcg/actuation nasal DAILY spray,suspension (Children's Flonase Allergy Relief) montelukast 10 mg tablet 10 mg PO QAM 08/17/19 01/30/23 History diazepam 5 mg tablet 5 mg PO HS 09/03/22 01/30/23 History melatonin 5 mg capsule 5 mg PO HS 09/03/22 01/30/23 History calcium carb-Ca gluc 500 mg 3 tab PO DAILY 01/05/23 01/30/23 History calcium-magnesium ox-Mg gluc 250 mg tablet (Calcium Magnesium) multivitamin 1 tab PO DAILY 01/05/23 01/30/23 History fluticasone 100 mcg-salmeterol 50 1 inh inhalation BID 01/12/23 01/30/23 History mcg/dose blistr powdr for inhalation (Advair Diskus) carvedilol 25 mg tablet 50 mg PO BID #180 tabs 01/13/23 01/30/23 Rx apixaban 5 mg tablet (Eliquis) 5 mg PO BID #180 tabs 01/22/23 01/30/23 Rx digoxin 250 mcg (0.25 mg) tablet 0.25 mg PO QAM #90 tabs 01/22/23 01/30/23 Rx sacubitril 49 mg-valsartan 51 mg 1 tab PO BID #180 tabs 01/22/23 01/30/23 Rx tablet (Entresto) famotidine 20 mg tablet (Pepcid) 20 mg PO BID 01/30/23 01/30/23 History furosemide 20 mg tablet (Lasix) 20 mg PO DAILY PRN Weight Gain 01/30/23 01/30/23 History Past Med/Surg History Medical History Asthma 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 Chest pain Chest tightness Chronic dyspnea Edema History of ventricular tachycardia Hypertension Restless leg syndrome Subacute cough Surgical History No significant past surgical history Social History Smoking Status: Never smoker Hx Alcohol Use: No (None 05/2021) Hx Substance Use: No Preferred Language: French Communication Ability: Effective Registry Np Required: No Beliefs That Will Affect Care: None Current Living Situation: Spouse current occupation: [employer] Feels Safe at Home: Yes Assistive Devices: None Review of Systems Review of Systems: Denies current fever, chills, changes hearing, taste, and smell, chest pain, SOB, cough, abdominal pain,diarrhea, hematemesis, melena, dysuria, hematuria, and recent trauma All systems have been reviewed and are otherwise negative. Physical Exam Physical Exam: Physical Exam: General: In no acute distress, stated age, well-nourished, non-toxic appearing HEENT: Patient currently with drooping of the right face with difficulty opening his right eye, no scleral icterus, pupils around round, symmetrical, and reactive to light, right eye is not currently irritated or injected, moist mucus membranes, trachea midline, no thyromegaly Chest/Pulm: No respiratory distress, symmetrical chest expansion, clear breath sounds throughout Cardiac: irregular rate and rhythm, no murmurs noted Abdomen: Negative for ascites and bruising, normoactive bowel sounds, soft, non-tender to palpation throughout Musculoskeletal: Symmetrical and without signs of acute trauma, upper and lower extremities with full ROM, no atrophy, spasticity, or flaccidity Extremities: Radial, dorsalis pedis, and posterior tibial pulses are intact and symmetrical, no edema noted in the BL LE's Skin: Warm, dry, no rashes , lesions, or scars noted Neuro: Alert and oriented to person, place, month, year, and president, patient currently with drooping of the right side of his face, eyebrow raise less pronounced on the right than left, difficulty opening right eyelid, pupils are round, symmetrical and reactive to light, tongue and uvula are midline, symmetrical strength with turning head left and right and symmetrical shoulder shrug, negative pronator drift BL, symmetrical strength in the BL upper and lower extremities, no tremor noted Psych: No acute distress, calm and cooperative during the exam Results & Data Results & Data ([facility]) Vital Signs (Past 12 Hours) Vital Signs Temp Pulse Pulse Resp BP BP Pulse Ox 01/30/23 19:24 64 17 137/93 99 01/30/23 18:08 64 01/30/23 17:58 36.6 C 72 18 140/82 94 O2 Del Method O2 Flow Rate 01/30/23 19:24 Non-rebreather 10 01/30/23 18:08 01/30/23 17:58 Room Air Laboratory Results Abnormal lab results 01/30/23 01/30/23 Range/Units 18:08 18:08 [place] # (Auto) 0.66 H (0.11-0.59) K/uL Glucose 102 H (70-99(Fasting)) mg/dl C-Reactive Protein 0.77 H (0-0.5) mg/dl Diagnostic Findings Head CT 01/30/23 18:[address] OF THE BRAIN; CT ANGIOGRAM OF THE BRAIN; CT ANGIOGRAM OF THE NECK CLINICAL HISTORY: Neurological deficit. Stroke like symptoms. COMPARISON STUDY: CT of the brain dated 06/27/2018. TECHNIQUE: Unenhanced axial CT scan of the brain is performed. Subsequently, following the IV administration of 110 of Optiray 320, CT angiogram of the head and neck was performed from the aortic arch to the vertex. Images are reviewed in the axial, sagittal, and coronal planes. 3-D MIPS images are created and assessed. IV contrast was administered without complication. All measurements were calculated based on NASCET criteria. A dose lowering technique was utilized adhering to the principles of ALARA. CT DOSE: 1196.29 mGy.cm FINDINGS: Brain parenchyma: The brain parenchyma is normal in appearance. There is no hemorrhage, mass effect, or evidence of acute territorial ischemia by CT criteria. There is no evidence of enhancing mass lesion on the angiogram phase images. The ventricles, sulci, and cisterns are normal in configuration. Lopez- white matter differentiation is preserved. No extra-axial fluid collection is seen. Thoracic aorta: Visualized portions of the thoracic aorta are normal in caliber. The aortic arch demonstrates bovine variant anatomy. Right carotid arterial system: The right common carotid artery is widely patent, as are the right internal and external carotid arteries. Minimal calcified plaque is seen in the carotid bulb. Left carotid arterial system: The left common carotid artery is widely patent, as are the left internal and external carotid arteries. Vertebral arteries: The vertebral arteries are widely patent bilaterally noting left-sided dominance. Subclavian arteries: Widely patent bilaterally. Intracranial vasculature: The internal carotid arteries are patent at the skull base, as are the anterior and middle cerebral arteries bilaterally. The vertebrobasilar system and posterior cerebral arteries are widely patent. There are bilateral posterior communicating arteries. The left vertebral artery is dominant. There is no aneurysm, high-grade stenosis, or focal vessel cut off seen throughout the intracranial circulation. Jugular veins: Patent bilaterally. Dural sinuses: Patent. Lung apices: Partially visualized upper lobe lung parenchyma appears clear. Soft tissues: The visualized pharyngeal soft tissues are normal in appearance noting angiographic phase technique. The oropharyngeal airway appears widely patent. The salivary and thyroid glands are normal in appearance. No cervical lymphadenopathy is seen. Skeletal structures: The calvarium appears intact. The cervical spine is within normal limits. Orbits: The bony orbits are intact. Orbital contents are normal as visualized. Sinuses and mastoids: The paranasal sinuses are clear. The mastoid air cells are well pneumatized. IMPRESSION: 1. There is no hemorrhage, mass effect, or evidence of acute territorial ischemia by CT criteria. 2. Unremarkable CT angiogram of the brain. 3. Unremarkable CT angiogram of the neck. ACT 112: Negative or not required by law. Electronically signed by: Reji Lauren M.D. 01/30/2023 6:32 PM Head CTA 01/30/23 18:[address] OF THE BRAIN; CT ANGIOGRAM OF THE BRAIN; CT ANGIOGRAM OF THE NECK CLINICAL HISTORY: Neurological deficit. Stroke like symptoms. COMPARISON STUDY: CT of the brain dated 06/27/2018. TECHNIQUE: Unenhanced axial CT scan of the brain is performed. Subsequently, following the IV administration of 110 of Optiray 320, CT angiogram of the head and neck was performed from the aortic arch to the vertex. Images are reviewed in the axial, sagittal, and coronal planes. 3-D MIPS images are created and assessed. IV contrast was administered without complication. All measurements were calculated based on NASCET criteria. A dose lowering technique was utilized adhering to the principles of ALARA. CT DOSE: 1196.29 mGy.cm FINDINGS: Brain parenchyma: The brain parenchyma is normal in appearance. There is no h emorrhage, mass effect, or evidence of acute territorial ischemia by CT criteria. There is no evidence of enhancing mass lesion on the angiogram phase images. The ventricles, sulci, and cisterns are normal in configuration. Lopez- white matter differentiation is preserved. No extra-axial fluid collection is seen. Thoracic aorta: Visualized portions of the thoracic aorta are normal in caliber. The aortic arch demonstrates bovine variant anatomy. Right carotid arterial system: The right common carotid artery is widely patent, as are the right internal and external carotid arteries. Minimal calcified plaque is seen in the carotid bulb. Left carotid arterial system: The left common carotid artery is widely patent, as are the left internal and external carotid arteries. Vertebral arteries: The vertebral arteries are widely patent bilaterally noting left-sided dominance. Subclavian arteries: Widely patent bilaterally. Intracranial vasculature: The internal carotid arteries are patent at the skull base, as are the anterior and middle cerebral arteries bilaterally. The vertebrobasilar system and posterior cerebral arteries are widely patent. There are bilateral posterior communicating arteries. The left vertebral artery is dominant. There is no aneurysm, high-grade stenosis, or focal vessel cut off seen throughout the intracranial circulation. Jugular veins: Patent bilaterally. Dural sinuses: Patent. Lung apices: Partially visualized upper lobe lung parenchyma appears clear. Soft tissues: The visualized pharyngeal soft tissues are normal in appearance noting angiographic phase technique. The oropharyngeal airway appears widely patent. The salivary and thyroid glands are normal in appearance. No cervical lymphadenopathy is seen. Skeletal structures: The calvarium appears intact. The cervical spine is within normal limits. Orbits: The bony orbits are intact. Orbital contents are normal as visualized. Sinuses and mastoids: The paranasal sinuses are clear. The mastoid air cells are well pneumatized. IMPRESSION: 1. There is no hemorrhage, mass effect, or evidence of acute territorial ischemia by CT criteria. 2. Unremarkable CT angiogram of the brain. 3. Unremarkable CT angiogram of the neck. ACT 112: Negative or not required by law. Electronically signed by: Reji Lauren M.D. 01/30/2023 6:32 PM Neck CTA 01/30/23 18:[address] OF THE BRAIN; CT ANGIOGRAM OF THE BRAIN; CT ANGIOGRAM OF THE NECK CLINICAL HISTORY: Neurological deficit. Stroke like symptoms. COMPARISON STUDY: CT of the brain dated 06/27/2018. TECHNIQUE: Unenhanced axial CT scan of the brain is performed. Subsequently, following the IV administration of 110 of Optiray 320, CT angiogram of the head and neck was performed from the aortic arch to the vertex. Images are reviewed in the axial, sagittal, and coronal planes. 3-D MIPS images are created and assessed. IV contrast was administered without complication. All measurements were calculated based on NASCET criteria. A dose lowering technique was utilized adhering to the principles of ALARA. CT DOSE: 1196.29 mGy.cm FINDINGS: Brain parenchyma: The brain parenchyma is normal in appearance. There is no hemorrhage, mass effect, or evidence of acute territorial ischemia by CT criteria. There is no evidence of enhancing mass lesion on the angiogram phase images. The ventricles, sulci, and cisterns are normal in configuration. Lopez- white matter differentiation is preserved. No extra-axial fluid collection is seen. Thoracic aorta: Visualized portions of the thoracic aorta are normal in caliber. The aortic arch demonstrates bovine variant anatomy. Right carotid arterial system: The right common carotid artery is widely patent, as are the right internal and external carotid arteries. Minimal calcified plaque is seen in the carotid bulb. Left carotid arterial system: The left common carotid artery is widely patent, as are the left internal and external carotid arteries. Vertebral arteries: The vertebral arteries are widely patent bilaterally noting left-sided dominance. Subclavian arteries: Widely patent bilaterally. Intracranial vasculature: The internal carotid arteries are patent at the skull base, as are the anterior and middle cerebral arteries bilaterally. The vertebrobasilar system and posterior cerebral arteries are widely patent. There are bilateral posterior communicating arteries. The left vertebral artery is dominant. There is no aneurysm, high-grade stenosis, or focal vessel cut off seen throughout the intracranial circulation. Jugular veins: Patent bilaterally. Dural sinuses: Patent. Lung apices: Partially visualized upper lobe lung parenchyma appears clear. Soft tissues: The visualized pharyngeal soft tissues are normal in appearance noting angiographic phase technique. The oropharyngeal airway appears widely patent. The salivary and thyroid glands are normal in appearance. No cervical lymphadenopathy is seen. Skeletal structures: The calvarium appears intact. The cervical spine is within normal limits. Orbits: The bony orbits are intact. Orbital contents are normal as visualized. Sinuses and mastoids: The paranasal sinuses are clear. The mastoid air cells are well pneumatized. IMPRESSION: 1. There is no hemorrhage, mass effect, or evidence of acute territorial ische yuri by CT criteria. 2. Unremarkable CT angiogram of the brain. 3. Unremarkable CT angiogram of the neck. ACT 112: Negative or not required by law. Electronically signed by: Reji Lauren M.D. 01/30/2023 6:32 PM ECG Additional Comments: Initial ECG with increased artifact, will reapeat one now Code Status & VTE Plan Code Status Full Code VTE Prophylaxis Plan VTE Prophylaxis will be ordered: Yes PG Care Time/CCT Total # of Minutes Spent Total Time Spent with Patient: Total time spent is greater than 50% in coordination of care (as documented) at patient's floor/unit and/or counseling patient: Coding [place] [address] INT INP/OBS CARE MIN Patient Type Established History Comprehensive Exam Comprehensive Medical Decision Making High Complexity Diagnoses Weakness on right side of face R29.810 Chest tightness R07.89 HFrEF (heart failure with reduced ejection fraction) I50.20 Atrial fibrillation I48.91 Atrial fibrillation type: unspecified 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
[2023-01-30] MEDS ORDERED: MELATONIN 3 MG TAB PO PRN (22:48)
[2023-01-30] MEDS ORDERED: ONDANSETRON INJ 2 MG/ML 2 ML VIAL IV PRN (23:21)
[2023-01-31] MEDS: ACETAMINOPHEN 1,000 MG/100 ML VIAL IV PRN ×2 (00:01→08:54)
[2023-01-31] MEDS: APIXABAN 5 MG TABLET PO SCH ×2 (00:26→08:47)
[2023-01-31] MEDS: carvediloL 25 MG TAB PO SCH ×2 (00:26→08:47)
[2023-01-31] MEDS: VALSARTAN/SACUBITRIL 51/49 MG TAB PO SCH ×2 (00:26→08:47)
[2023-01-31 05:09] LABS: Hematocrit (blood only) 47.5 % (42.0-52.0); Hemoglobin 16.2 g/dl (14.0-18.0); Mean Corpuscular Hemoglobin 28.6 pg (25.0-34.0); Mean Corpuscular Hgb Conc 34.1 g/dL (32.0-36.0); Mean Corpuscular Volume 83.8 fL (80.0-100.0); Mean Platelet Volume 11.1 fL (9.4-12.4); Platelet Count 218 K/uL (130-400); RDW Coefficient of Variation 13.3 % (11.5-14.5); RDW Standard Deviation 40.7 fL (36.4-46.3); Red Blood Count 5.67 M/uL (4.70-6.10); White Blood Count 11.93 K/ul (4.8-10.8)
[2023-01-31 05:26] LABS: Albumin Globulin Ratio 1.6 (0.9-2); Albumin Level 4.2 gm/dl (3.4-5.0); Bilirubin,Total 0.6 mg/dl (0.2-1.0); Calcium 9.1 mg/dl (8.5-10.1); Chol HDL Ratio 4.7 (0-5); Creatinine Clr Calc Pharmacy 114.3 ml/min; Est GFR (African American) 97.8 ml/min; Est GFR (Non-African American) 84.4 ml/min; Globulin 2.6 gm/dl (2.5-4.0); Magnesium 2.3 mg/dl (1.7-2.4); Potassium 4.4 mmol/L (3.5-5.1); Total Protein 6.8 gm/dl (6.0-8.3)
[2023-01-31 05:49] LABS: Basophils # (auto) 0.02 K/uL (0-0.2); Basophils % (auto) 0.2 %; Immature Granulocytes # (auto) 0.05 K/uL (0.01-0.20); Immature Granulocytes % (auto) 0.4 %; Lymphocytes # (auto) 0.51 K/uL (1.2-3.4); Lymphocytes % (auto) 4.3 %; Monocytes # (auto) 0.15 K/uL (0.11-0.59); Monocytes % (auto) 1.3 %; Neutrophils % (auto) 93.8 %; RBC Morphology Unremarkable
[2023-01-31 07:46] LABS: Estimated Average Glucose 117 mg/dl; Hemoglobin A1C 5.7 % (4.5-5.6)
[2023-01-31] MEDS ORDERED: FLUTICASONE/VILANTEROL 100/25MCG 14 PUFFS/INHALER INH SCH (09:00)
[2023-01-31] MEDS ORDERED: FAMOTIDINE 20 MG TAB PO SCH (09:00)
--- NOTE | 2023-01-31 11:21 | Magnetic Resonance Report ---
MR brain wo con CLINICAL HISTORY: stroke workup TECHNIQUE: Multiplanar and multisequence MR images of the brain were obtained without intravenous con trast. Comparison: Comparison is made to MRI brain 03/24/2013 FINDINGS: No abnormal restricted diffusion is identified. Foci of T2 and FLAIR hyperintensity are noted in the paraventricular areas consistent with chronic small vessel ischemic disease. The ventricular system i s normal in appearance. No mass is seen. There is no mass effect or midline shift. There is no eviden ce of acute intraparenchymal hemorrhage. No extra axial fluid collections are seen. The corpus callos um, pituitary gland, and cerebellar tonsils appear grossly unremarkable. Incidental note is again mad e of low-lying right cerebellar tonsil. Flow voids of the major intracranial arterial vessels are identified. The imaged portions of the para nasal sinuses, mastoid air cells, and orbits are unremarkable. IMPRESSION: No acute abnormality and in particular no evidence of acute infarct. ACT 112: Negative or not required by law. Electronically signed by: Elkin Moran M.D. 01/31/2023 11:20 AM
--- NOTE | 2023-01-31 11:50 | Neurology Consultation ---
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 not suggestive of stroke. mri negative. Recommendations: do recommend prednisone 60mg po daily for 5 days and stop. no need for further stroke work up. ok for discharge from neurology stand point. will sign off. Dr. Jesus Easley MD [facility] Neurology Chief Complaint: rt face droop History of Present Illness: 57 yo male with rt face droop. this morning improved headache and rt face droop mild. mri brain negative. chart reviewed. pt feeling much better and wants to go home. Admission/Initial HPI documentation: Wilder is a 57-year-old male with a past medical history significant for atrial fibrillation (started on Eliquis this month) , cardiomyopathy, HFrEF (LVEF of 25-30% as of 01/16/23), AIVR, hypertension, and asthma who presented to the [facility] ED on 01/30/23 with complaints of acute, right-sided facial weakness/numbness. In the ED the patient was found to be afebrile, hemodynamically stable, and and stable on RA. Labs were significant for a CBC WNL, stable Cr. at 1.28, stable electrolytes, glucose of 102, LFT's WNL, CRP of 0.77, dig level of 1.3, lyme IgG and IgM negative. CT of the head and CTA of the head/neck was read as "1. There is no hemorrhage, mass effect, or evidence of acute territorial ischemia by CT criteria. 2. Unremarkable CT angiogram of the brain. 3. Unremarkable CT angiogram of the neck.". The ED staff spoke with Tele stroke who thought the patient's symptoms were more likely associated with an atypical migraine. At that time they recommended the ED treat the patient for a migraine and monitor for improvement of symptoms. They recommended admission for further TIA/stroke workup if the patient's symptoms did not resolve within a few hours. TNK was not administered due to the patient being anticoagulated on Eliquis. Prior to admission the patient was given 4 mg IV zofran, 1gm IV magnesium, 0.5 mg IV ativan, 0.5 mg IV dilaudid, 10 mg IV dexamethasone, and 1g IV tylenol. At the time of the exam the patient was sitting up in bed in no acute distress with his sitting bedside. He states that he was in his normal state of health when he woke up this am. He went to Cardiac rehab around noon and then ran some more errands in the afternoon. He was driving home at approximately 4:15 pm when he developed a sudden right-sided headache. He noticed some irritation in his right eye while driving but was not sure if he experienced a change in vision. By the time he got home his noticed that his eye appeared irritated with an injected sclera and some swelling around the right eye. They then noticed the weakness/dropping of the right side of his face which prompted him to come to the ED. He denies recent fevers, chills, insect bites, weakness in his extremities, chest pain, SOB, abd pain, dysuria, hematuria, and recent trauma prior to ED arrival. He does mention that he had some chest tightness approximately an hour before my exam, this has resolved at the time of my exam. He states that he has a long history of migraines, especially occipital migraines but this does not feel like his normal ones. He experienced one episode of nausea and vomiting after receiving medications in the ED but is feeling ok now. He has not missed a dose of Eliquis since starting it on 01/08/23. He still has a moderate headache at this time, approximately a 5/10. He has had no other medication changes since his last admission and denies recent illness. Past Medical History: See chart Meds: See chart I personally reviewed all of the medications Social & Family History: See chart Review of Systems: Per initial HPI on admission. Physical Exam: GEN: NAD HEENT: Normocephalic Neuro: Mental status:A & O x 3.No dysarthria or aphasia.No neglect. Fluent speech. No apraxia Cranial Nerves:II-XII intact except subtle rt forehead and face weakness. Motor:Normal bulk and tone,5/5 strength x 4 extremities Coordination:Intact FTN testing Reflexes:down going toes chrissy Sensation: Intact x 4 extremities to touch Chart reviewed I have spent more than 50% educating patient about potential diagnosis and neurological evaluation and coordinating care with patient's treatment team. Total time spent (including chart review and coordination of care): 80 min (this includes chart review). History of Present Illness Attending Physician: Pancho Espinozaorio Allergies Allergy/AdvReac Type Severity Reaction Status Date / Time ceftriaxone [From Rocephin] Allergy Mild Hives Verified 01/22/23 12:00 amoxicillin Allergy Unknown RX AN Verified 01/22/23 12:00 INFANT clavulanic acid Allergy Unknown RX AN Verified 01/22/23 12:00 INFANT erythromycin base Allergy Unknown REACTION Verified 01/22/23 12:00 TO PCN AND AUGMENTIN Penicillins Allergy Unknown REACTION Verified 01/22/23 12:00 AN - UNKNOWN Tetracyclines Allergy Unknown VOMITING Verified 01/22/23 12:00 AND RASH banana AdvReac Vomiting Unverified 01/22/23 12:00 Home Medications Medication Instructions Recorded Confirmed Type albuterol sulfate 90 mcg/actuation 1 puffs inhalation .COMPLEX PRN 08/17/19 01/30/23 History breath activated powder inhaler Shortness Of Breath Or Wheezing ascorbate calcium (vitamin C) 500 500 mg PO DAILY 08/17/19 01/30/23 History mg tablet cholecalciferol (vitamin D3) 10 400 units PO DAILY 08/17/19 01/30/23 History mcg (400 unit) capsule cyclobenzaprine 10 mg tablet 10 mg PO HS #30 tabs 08/17/19 01/30/23 Rx fluticasone propionate 50 See Rx Instructions intranasal 08/17/19 01/30/23 History mcg/actuation nasal DAILY spray,suspension (Children's Flonase Allergy Relief) montelukast 10 mg tablet 10 mg PO QAM 08/17/19 01/30/23 History diazepam 5 mg tablet 5 mg PO HS 09/03/22 01/30/23 History melatonin 5 mg capsule 5 mg PO HS 09/03/22 01/30/23 History calcium carb-Ca gluc 500 mg 3 tab PO DAILY 01/05/23 01/30/23 History calcium-magnesium ox-Mg gluc 250 mg tablet (Calcium Magnesium) multivitamin 1 tab PO DAILY 01/05/23 01/30/23 History fluticasone 100 mcg-salmeterol 50 1 inh inhalation BID 01/12/23 01/30/23 History mcg/dose blistr powdr for inhalation (Advair Diskus) carvedilol 25 mg tablet 50 mg PO BID #180 tabs 01/13/23 01/30/23 Rx apixaban 5 mg tablet (Eliquis) 5 mg PO BID #180 tabs 01/22/23 01/30/23 Rx digoxin 250 mcg (0.25 mg) tablet 0.25 mg PO QAM #90 tabs 01/22/23 01/30/23 Rx sacubitril 49 mg-valsartan 51 mg 1 tab PO BID #180 tabs 01/22/23 01/30/23 Rx tablet (Entresto) famotidine 20 mg tablet (Pepcid) 20 mg PO BID 01/30/23 01/30/23 History furosemide 20 mg tablet (Lasix) 20 mg PO DAILY PRN Weight Gain 01/30/23 01/30/23 History Patient History Medical History Asthma 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 Chest pain Chest tightness Chronic dyspnea Edema History of ventricular tachycardia Hypertension Restless leg syndrome Subacute cough Surgical History No significant past surgical history Social History Smoking Status: Never smoker Hx Alcohol Use: No Hx Substance Use: No Preferred Language: Lebanese Communication Ability: Effective General Activities Therapist Required: No Beliefs That Will Affect Care: None Current Living Situation: Spouse current occupation: [employer] Other Information That Helps Us Care for You: No Feels Safe at Home: Yes Safety Concerns: Feels Safe At This Time Assistive Devices: None Results & Data ([facility]) Vital Signs (Past 12 Hours) Vital Signs Temp Pulse Pulse Resp BP Pulse Ox O2 Del Method 01/31/23 08:38 70 01/31/23 07:47 37.0 C 74 18 104/67 95 Room Air 01/31/23 02:50 36.6 C 88 18 119/77 93 Room Air
--- NOTE | 2023-01-31 14:11 | Electrocardiogram Report ---
Test Reason : Blood Pressure : / mmHG Vent. Rate : 071 BPM Atrial Rate : 150 BPM P-R Int : 000 ms QRS Dur : 108 ms QT Int : 384 ms P-R-T Axes : 000 -25 039 degrees QTc Int : 417 ms Atrial fibrillation with premature ventricular or aberrantly conducted complexes Possible Anterior infarct (cited on or before 12-JAN-2023) Abnormal ECG When compared with ECG of 12-JAN-2023 11:31, (unconfirmed) No significant change was found Confirmed by Tha Denney ([id number]) on 01/31/2023 2:11:03 PM Referred By: REFERRED SELF Confirmed By:Tha Denney
--- NOTE | 2023-01-31 14:15 | Electrocardiogram Report ---
Test Reason : Blood Pressure : / mmHG Vent. Rate : 069 BPM Atrial Rate : 038 BPM P-R Int : 000 ms QRS Dur : 080 ms QT Int : 362 ms P-R-T Axes : 000 003 085 degrees QTc Int : 387 ms Poor data quality, interpretation may be adversely affected Atrial fibrillation with premature ventricular or aberrantly conducted complexes RSR' or QR pattern in V1 suggests right ventricular conduction delay Anteroseptal infarct (cited on or before 12-JAN-2023) Abnormal ECG When compared with ECG of 30-JAN-2023 18:12, (unconfirmed) No significant change was found T wave inversion now evident in Lateral leads Confirmed by Tha Denney ([id number]) on 01/31/2023 2:15:15 PM Referred By: REFERRED SELF Confirmed By:Tha Denney
--- NOTE | 2023-01-31 14:16 | Electrocardiogram Report ---
Test Reason : Blood Pressure : / mmHG Vent. Rate : 070 BPM Atrial Rate : 340 BPM P-R Int : 000 ms QRS Dur : 104 ms QT Int : 388 ms P-R-T Axes : 000 -25 038 degrees QTc Int : 419 ms Poor data quality, interpretation may be adversely affected Atrial fibrillation with premature ventricular or aberrantly conducted complexes Possible Inferior infarct , age undetermined Anterolateral infarct (cited on or before 12-JAN-2023) Abnormal ECG When compared with ECG of 30-JAN-2023 19:31, (unconfirmed) Possible Inferior infarct is now Present Serial changes of Anterior infarct Present Confirmed by Tha Denney ([id number]) on 01/31/2023 2:15:52 PM Referred By: REFERRED SELF Confirmed By:Tha Denney
--- NOTE | 2023-01-31 14:22 | Electrocardiogram Report ---
Test Reason : Blood Pressure : / mmHG Vent. Rate : 083 BPM Atrial Rate : 101 BPM P-R Int : 000 ms QRS Dur : 102 ms QT Int : 388 ms P-R-T Axes : 000 -23 058 degrees QTc Int : 455 ms Poor data quality, interpretation may be adversely affected Atrial fibrillation with premature ventricular or aberrantly conducted complexes Possible Inferior infarct (cited on or before 07-JAN-2023) Possible Anterior infarct (cited on or before 12-JAN-2023) Abnormal ECG When compared with ECG of 30-JAN-2023 19:32, (unconfirmed) No significant change was found Confirmed by Tha Denney ([id number]) on 01/31/2023 2:22:27 PM Referred By: REFERRED SELF Confirmed By:Tha Denney
--- NOTE | 2023-01-31 14:23 | Electrocardiogram Report ---
Test Reason : Blood Pressure : / mmHG Vent. Rate : 096 BPM Atrial Rate : 258 BPM P-R Int : 000 ms QRS Dur : 100 ms QT Int : 420 ms P-R-T Axes : 000 -22 016 degrees QTc Int : 530 ms Poor data quality, interpretation may be adversely affected Atrial fibrillation with premature ventricular or aberrantly conducted complexes Possible Inferior infarct (cited on or before 07-JAN-2023) Possible Anterior infarct (cited on or before 12-JAN-2023) Abnormal ECG When compared with ECG of 30-JAN-2023 21:56, (unconfirmed) Lateral ST/T cahnges slightly worse Confirmed by Tha Denney ([id number]) on 01/31/2023 2:23:04 PM Referred By: REFERRED SELF Confirmed By:Tha Denney
[2023-01-31] MEDS ORDERED: STROKE PATIENT DISCHARGE STA (14:32)
[2023-01-31] MEDS ORDERED: DIGOXIN 0.25 MG TAB PO SCH (16:00)
[2023-01-31] MEDS ORDERED: diazePAM 5 MG TABLET PO SCH (21:00)
[2023-01-31] MEDS ORDERED: CYCLOBENZAPRINE HCL 10 MG TAB PO SCH (21:00)
--- NOTE | 2023-02-10 22:09 | Discharge Summary ---
Date of Service January 31, 2023 Admission HPI Per Admitting Provider Wilder is a 57-year-old male with a past medical history significant for atrial fibrillation (started on Eliquis this month) , cardiomyopathy, HFrEF (LVEF of 25-30% as of 01/16/23), AIVR, hypertension, and asthma who presented to the [facility] ED on 01/30/23 with complaints of acute, right-sided facial weakness/numbness. In the ED the patient was found to be afebrile, hemodynamically stable, and and stable on RA. Labs were significant for a CBC WNL, stable Cr. at 1.28, stable electrolytes, glucose of 102, LFT's WNL, CRP of 0.77, dig level of 1.3, lyme IgG and IgM negative. CT of the head and CTA of the head/neck was read as "1. There is no hemorrhage, mass effect, or evidence of acute territorial ischemia by CT criteria. 2. Unremarkable CT angiogram of the brain. 3. Unremarkable CT angiogram of the neck.". The ED staff spoke with Tele stroke who thought the patient's symptoms were more likely associated with an atypical migraine. At that time they recommended the ED treat the patient for a migraine and monitor for improvement of symptoms. They recommended admission for further TIA/stroke workup if the patient's symptoms did not resolve within a few hours. TNK was not administered due to the patient being anticoagulated on Eliquis. Prior to admission the patient was given 4 mg IV zofran, 1gm IV magnesium, 0.5 mg IV ativan, 0.5 mg IV dilaudid, 10 mg IV dexamethasone, and 1g IV tylenol. At the time of the exam the patient was sitting up in bed in no acute distress with his sitting bedside. He states that he was in his normal state of health when he woke up this am. He went to Cardiac rehab around noon and then ran some more errands in the afternoon. He was driving home at approximately 4:15 pm when he developed a sudden right-sided headache. He noticed some irritation in his right eye while driving but was not sure if he experienced a change in vision. By the time he got home his noticed that his eye appeared irritated with an injected sclera and some swelling around the right eye. They then noticed the weakness/dropping of the right side of his face which prompted him to come to the ED. He denies recent fevers, chills, insect bites, weakness in his extremities, chest pain, SOB, abd pain, dysuria, hematuria, and recent trauma prior to ED arrival. He does mention that he had some chest tightness approximately an hour before my exam, this has resolved at the time of my exam. He states that he has a long history of migraines, especially occipital migraines but this does not feel like his normal ones. He experienced one episode of nausea and vomiting after receiving medications in the ED but is feeling ok now. He has not missed a dose of Eliquis since starting it on 01/08/23. He still has a moderate headache at this time, approximately a 5/10. He has had no other medication changes since his last admission and denies recent illness. 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 Discharge Exam General: In no acute distress, stated age, well-nourished, non-toxic appearing HEENT: Patient currently with drooping of the right face with difficulty opening his right eye, no scleral icterus, pupils around round, symmetrical, and reactive to light, right eye is not currently irritated or injected, moist mucus membranes, trachea midline, no thyromegaly Chest/Pulm: No respiratory distress, symmetrical chest expansion, clear breath sounds throughout Cardiac: irregular rate and rhythm, no murmurs noted Abdomen: Negative for ascites and bruising, normoactive bowel sounds, soft, non-tender to palpation throughout Musculoskeletal: Symmetrical and without signs of acute trauma, upper and lower extremities with full ROM, no atrophy, spasticity, or flaccidity Extremities: Radial, dorsalis pedis, and posterior tibial pulses are intact and symmetrical, no edema noted in the BL LE's Skin: Warm, dry, no rashes , lesions, or scars noted Neuro: Alert and oriented to person, place, month, year, and president, patient currently with drooping of the right side of his face, eyebrow raise less pronounced on the right than left, difficulty opening right eyelid, pupils are round, symmetrical and reactive to light, tongue and uvula are midline, symmetrical strength with turning head left and right and symmetrical shoulder shrug, negative pronator drift BL, symmetrical strength in the BL upper and lower extremities, no tremor noted Psych: No acute distress, calm and cooperative during the exam Discharge Data Allergies Allergy/AdvReac Type Severity Reaction Status Date / Time ceftriaxone [From Rocephin] Allergy Intermediate Hives Verified 02/03/23 10:12 amoxicillin Allergy Unknown RX AN Verified 02/03/23 10:12 INFANT clavulanic acid Allergy Unknown RX AN Verified 02/03/23 10:12 erythromycin base Allergy Unknown REACTION Verified 02/03/23 10:12 TO PCN AND AUGMENTIN Penicillins Allergy Unknown REACTION Verified 02/03/23 10:12 AN INFANT - UNKNOWN Tetracyclines Allergy Unknown VOMITING Verified 02/03/23 10:12 AND RASH banana AdvReac Mild Vomiting Unverified 02/03/23 10:12 hydromorphone [From Dilaudid] AdvReac Mild Vomiting Verified 02/03/23 10:12 Consultations 01/30/23 20:39 ED Decision to Admit Stat 01/31/23 08:48 Consult Neurology Routine Ordered Studies 01/30/23 18:09 CT angio head w con Stat CT angio neck with con Stat CT head/brain wo con Stat 01/30/23 21:22 MRI Brain [MR brain wo con] Routine Hospital Course (1) Weakness on right side of face: -Admit to the PCU on tele -The patient is currently afebrile, hemodynamically stable, and stable on RA -The patient experienced sudden onset of right headache and right sided facial weakness at approximately 4 pm today -Stroke alert called in the ED, CT of the head and CTA of the head/neck were negative for acute findings [facility] an [facility] but his symptoms have not resolved -Patient has been on Eliquis since 01/08 without other medication changes, however, he was recently diagnosed with afib so embolic stroke cannot entirely be ruled out at this time -Physical exam findings are not consistent with Zurita's Palsy as he is having difficulty opening his eye and eyebrow raise is decreased on the right side -Will obtain MRI of the brain without con tonight for further assessment, TTE in the am -Dysphagia screen ordered, speech therapy, PT/OT tomorrow -Q4h neuro checks ordered -Not currently on a Statin, follow am A1c and lipid panels -Continue home Eliquis at this time On day of discharge: Evaluated by Neuro: pt likely with 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 not suggestive of stroke. mri negative. Recommendations: do recommend prednisone 60mg po daily for 5 days and stop. no need for further stroke work up. ok for discharge from neurology stand point. 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: -Stable on RA -Continue Advair and prn albuterol (6) Hypertension: -Stable -Continue Carvedilol Total Time Total Time Spent Total Time Spent (In Minutes): 32 Discharge Plan Discharge Items Patient Disposition: Home - Self-Care Reason For Visit: STROKE ALERT Discharge Diagnosis: 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 Neurology recommends to take prednisone 60 mg once a day for 5 days start tomorrow. Pending Studies at Discharge: No Stand-Alone Forms: My [facility], Smoking Cessation Medications and DC Order Prescriptions: Continued albuterol sulfate 90 mcg/actuation aerosol powdr breath activated 1 puffs INH .COMPLEX PRN (Reason: Shortness Of Breath Or Wheezing) Patient Comments: 1 inh INH as needed; Rx Instructions: 1 inh INH as needed; cyclobenzaprine 10 mg tablet 10 mg PO HS Qty: 30 0RF fluticasone propionate [Children's Flonase Allergy Rlf] 50 mcg/actuation spray,suspension See Rx Instructions INTNAS DAILY Rx Instructions: 1-2sprays in each nostril daily INTNAS DAILY; montelukast 10 mg tablet 10 mg PO QAM ascorbate calcium (vitamin C) 500 mg tablet 500 mg PO DAILY cholecalciferol (vitamin D3) 400 unit capsule 400 units PO DAILY carvedilol 25 mg tablet 50 mg PO BID Qty: 180 3RF Eliquis 5 mg tablet 5 mg PO BID Qty: 180 3RF digoxin 250 mcg (0.25 mg) tablet 0.25 mg PO QAM Qty: 90 3RF Hold Instructions: low hr Entresto 49-51 mg tablet 1 tab PO BID Qty: 180 3RF diazepam 5 mg tablet 5 mg PO HS melatonin 5 mg capsule 5 mg PO HS fluticasone propion-salmeterol [Advair Diskus] 100-50 mcg/dose blister with device 1 inh inhalation BID Calcium Magnesium 500 mg calcium -250 mg Tablet 3 tab PO DAILY multivitamin Tablet 1 tab PO DAILY famotidine [Pepcid] 20 mg Tablet 20 mg PO BID furosemide [Lasix] 20 mg tablet 20 mg PO DAILY PRN (Reason: Weight Gain) Discharge Orders: Discharge Order (Routine); Ordered 01/31/23 Ordered By: Pancho Sheth Admission Data Admit Date/Time: 01/30/23 20:52 Attending Provider: Pancho Sheth Admit Provider: Miki Govea Primary Care Provider: Amrit Alvarez Other Providers: Miki Govea ; Jesus Easley Other Interventions: Discharge Summary Assessment (RN) Last Done: 01/31/23 14:42 Coding Level of Care Code 95086 INP/OBS DISCH >30 MIN Diagnoses Weakness on right side of face R29.810 Chest tightness R07.89 HFrEF (heart failure with reduced ejection fraction) I50.20 Atrial fibrillation I48.91 Atrial fibrillation type: unspecified 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
== END 2023-01-31 15:44 | disposition home or self-care (01) ==
LOC: ED 17:52 → SUATTDRO 20:52 → INTOOBSV 20:52 → 2S 20:52
DX: G51.0 Bell's palsy; I50.20 Unspecified systolic (congestive) heart failure; I48.91 Unspecified atrial fibrillation; G43.809 Other migraine, not intractable, without status migrainosus; R07.89 Other chest pain; R29.810 Facial weakness; Z79.52 Long term (current) use of systemic steroids; Z88.1 Allergy status to other antibiotic agents; J45.909 Unspecified asthma, uncomplicated; I11.0 Hypertensive heart disease with heart failure; Z88.0 Allergy status to penicillin

== ENCOUNTER 2023-10-27 08:43 | Inpatient (IN) ==
[2023-10-27] MEDS ORDERED: ACETAMINOPHEN 1,000 MG/100 ML VIAL IV STA ×2 (09:06→13:47)
--- NOTE | 2023-10-27 09:18 | Emergency Department Note ---
Impression & Plan Chest pain, Dyspnea, Atrial fibrillation with rapid ventricular response, COVID-19 ED Provider Note ED Provider Note NAME: JOSELO PERALTA AGE:57 SEX: Male : 1965 ARRIVES VIA: Private vehicle INFORMANT: Patient ED PROVIDER(s): Perla Cage DO CHIEF COMPLAINT: Chest pain, shortness of breath, atrial fibrillation HPI: This is a 57-year-old male who presents emergency department due to concern for chest pain, difficulty breathing, and atrial fibrillation. Patient states last evening he began noticing a sore throat, fatigue, headache, and cough and went to bed early. He states this morning around 4 AM he awoke and realized he had a heavy burning in the center of his chest that was otherwise nonradiating. He states he felt more short of breath. He tried to lay back down but had difficulty sleeping. He did try and take medication at that time however it did not help and he continued to have discomfort. He did check his smart watch and realized he was in a very rapid rate. He states he has been in A-fib since he saw cardiology the end of August. He does have a prior history of atrial fibrillation. Patient otherwise has significant prior heart history and states his last ejection fraction was 30%. He states he was referred to [facility] for additional evaluation. He states he has tried to contact Dr. Rios, his routine transplanter each week over the last 4 weeks due to the ongoing atrial fibrillation but had not received any follow-up. He states a physician psychology assistant from the office did call him and states that upon review of his tracing sent to the office as well as his known history they wanted to add Toprol to his current regimen that does not include carvedilol and Eliquis already. Patient states he had just picked that up yesterday but did not yet started it. He has not had anything to eat this morning and has not otherwise taken his medications. PAST MEDICAL HISTORY:See Below PAST SURGICAL HISTORY:See Below FAMILY HISTORY:See Below SOCIAL HISTORY:See Below HOME MEDICATIONS:See Below ALLERGIES:See Below VITALS:See Below PHYSICAL EXAMINATION: GENERAL: alert, anxious appearing, well nourished, no distress, non-toxic EYE EXAM: normal conjunctiva, PERRL and EOM's grossly intact OROPHARYNX: no exudate, no erythema, lips, buccal mucosa, and tongue normal and mucous membranes are moist NECK: supple, no nuchal rigidity, no adenopathy, non-tender LUNGS: Clear to auscultation. Normal chest wall mechanics, no w/r/r HEART: no murmurs, S1 normal and S2 normal ABDOMEN: abdomen soft, non-tender, normo-active bowel sounds, no masses, no rebound or guarding. BACK: Back is symmetrical on inspection and there is no deformity, no midline tenderness, no CVA tenderness. SKIN: no rashes, petechiae, orbruising UPPER EXTREMITIES: upper extremities are grossly normal. FROM, nml pulses b/l. LOWER EXTREMITIES: No pitting edema. FROM, nml pulses b/l. NEURO EXAM: Normal sensorium, cranial nerves II-XII grossly intact, normal speech, no facial droop,nogross weakness of arms, no gross weakness of legs. Gross sensation intact. No ataxia. Vital Signs: reviewed and remarkable Differential Diagnosis: acute coronary syndrome, pericarditis, pulmonary embolus, aortic dissection, pneumonia, pneumothorax, musculoskeletal pain, shingles, GERD, GI bleed, as well as others were considered MEDICAL DECISION MAKING: This is a 57-year-old male presents emerged department due to concern for chest pain and shortness of breath which began this morning. Patient afebrile vital signs stable but he was noted to have a elevated heart rate and an EKG appeared to have atrial fibrillation with RVR. Labs drawn and sent, IV established, EKG and chest x-ray performed at bedside interpret by me and patient monitor on telemetry. Patient given small IV fluid bolus as he appeared clinically dehydrated at that time. He was also given medication for nausea as well as his chest discomfort in the form of IV Tylenol and IV Zofran. Patient's presentation discussed with cardiology who recommended adding the Toprol that had been previously recommended last week. Patient was given his normal home carvedilol initially and then the Toprol was added. Patient did not have any significant improvement in his heart rate. He was then given an additional small fluid bolus. I did have concern for patient's volume status as well he appeared clinically dehydrated his last ejection fraction was 30 to 35%. Patient's nasal swab ultimately positive for COVID which I suspect is the reason for his symptoms. Patient as well as cardiology were updated on this. Patient then had recurrent nausea and vomiting, additional medications were added, and he also complained of a headache. I did update cardiology again given the persistent rapid heart rate and they recommended adding digoxin next. Patient sent for CT head as a precaution due to use of anticoagulation although it he had not had his morning dose due to his nausea. CT head reassuring, patient given additional meds for nausea and was able to tolerate a small amount p.o. Due to concern for persistent worsening symptoms as well as persistent rapid heart rate, case discussed with hospitalist team for additional evaluation and management. Consultation(s): 1045: Discussed with Dr. Vega. Recommends maintaining patient on his usual meds and adding in the Toprol as described by the cardiology note from Neptali Reis PA-C. 1422: Updated Dr. Vega. Recommends digoxin next. 1545: Discussed with Dr. Junior, [facility] hospitalist team, for additional evaluation and mgmt. ER Treatment Provided: See below Diagnostics Interpreted By Me: -ECG: Atrial fibrillation at a rate of 129, leftward axis, normal intervals, nonspecific ST/T wave changes -Cardiac Monitoring: An order was placed for continuous cardiac monitoring. The monitor shows a rate of 111 with a.fib rhythm. -Laboratory studies: As stated above and show below. -Imaging studies: X-ray Chest: A single view study of the chest was reviewed and was negative for cardiomegaly, focal infiltrate, effusion, pulmonary edema, or wide mediastinum. Triage Nursing Note Reviewed Prior/Outside Records Reviewed -office visit with cardiology 09/22/2023 Procedures: [] Critical Care: Critical care of 48 min performed to assess and manage high likelihood of life- threatening dysrhythmia, involving labs and imaging performed with assessment to evaluate dysrhythmia diagnosis with frequent reassessment. This time includes bedside time, treatment discussions with patient/family/consultants, documentation time and excludes procedure time. 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 on Eliquis. Follows with Dr. Rios. 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 DETAILS History of tooth extraction Hx of vasectomy Nausea and vomiting after administration of anesthetic agent Social History Smoking Status: Never smoker Cigarettes Per Day: USED TO SMOKE CIGARS "ONCE IN A WHILE" NOT ANY FOR YEARS; Second Hand Exposure: No; Do You Dip or Chew Tobacco: No; Hx Alcohol Use: No Hx Substance Use: No Preferred Language: Cook Islander Communication Ability: Effective Manager Molecular Required: No Beliefs That Will Affect Care: None Current Living Situation: Spouse current occupation: [employer] Other Information That Helps Us Care for You: No Feels Safe at Home: Yes Safety Concerns: Feels Safe At This Time Assistive Devices: None Allergies Allergies Allergy/AdvReac Type Severity Reaction Status Date / Time ceftriaxone [From Rocephin] Allergy Intermediate Hives Verified 10/27/23 13:15 amoxicillin Allergy Unknown RX AN Verified 10/27/23 13:15 INFANT clavulanic acid Allergy Unknown RX AN Verified 10/27/23 13:15 erythromycin base Allergy Unknown REACTION Verified 10/27/23 13:15 TO PCN AND AUGMENTIN Penicillins Allergy Unknown REACTION Verified 10/27/23 13:15 AN INFANT - UNKNOWN Tetracyclines Allergy Unknown VOMITING Verified 10/27/23 13:15 AND RASH banana AdvReac Mild Vomiting Unverified 10/27/23 13:15 hydromorphone [From Dilaudid] AdvReac Mild Vomiting Verified 10/27/23 13:15 Home Meds Home Medications Medication Instructions Recorded Confirmed albuterol sulfate 90 mcg/actuation 1 puffs inhalation .COMPLEX PRN 08/17/19 10/27/23 breath activated powder inhaler Shortness Of Breath Or Wheezing ascorbate calcium (vitamin C) 500 500 mg PO DAILY 08/17/19 10/27/23 mg tablet cholecalciferol (vitamin D3) 10 400 units PO DAILY 08/17/19 10/27/23 mcg (400 unit) capsule montelukast 10 mg tablet 10 mg PO QAM 08/17/19 10/27/23 diazepam 5 mg tablet 5 mg PO HS 09/03/22 10/27/23 melatonin 5 mg capsule 5 mg PO HS 09/03/22 10/27/23 calcium carb-Ca gluc 500 mg 3 tab PO DAILY 01/05/23 10/27/23 calcium-magnesium ox-Mg gluc 250 mg tablet (Calcium Magnesium) multivitamin 1 tab PO DAILY 01/05/23 10/27/23 famotidine 20 mg tablet (Pepcid) 20 mg PO BID 01/30/23 10/27/23 furosemide 20 mg tablet (Lasix) 20 mg PO DAILY PRN Weight Gain 01/30/23 10/27/23 fluticasone 500 mcg-salmeterol 50 1 inh inhalation BID 02/19/23 10/27/23 mcg/dose blistr powdr for inhalation (Advair Diskus) carvedilol 25 mg tablet 25 mg PO BID 10/27/23 10/27/23 fluticasone propionate 50 1 spray intranasal DAILY 10/27/23 10/27/23 mcg/actuation nasal spray,suspension Previous Rx's Medication Instructions Recorded cyclobenzaprine 10 mg tablet 10 mg PO HS #30 tabs 08/17/19 apixaban 5 mg tablet (Eliquis) 5 mg PO BID #180 tabs 01/22/23 sacubitril 97 mg-valsartan 103 mg 1 tab PO BID #180 tabs 03/10/23 tablet (Entresto) dapagliflozin propanediol 10 mg 10 mg PO DAILY #30 tabs 08/19/23 tablet (Farxiga) metoprolol succinate 50 mg 50 mg PO DAILY #90 tabs 10/23/23 tablet,extended release 24 hr Results & Data (ED) Vital Signs Vital Signs - 24 hr 10/27/23 16:00 10/27/23 16:00 10/27/23 16:00 Pulse Rate 126 H Pulse Rate [Apical] 126 H Pulse Rate from SpO2 Sensor 165 H Respiratory Rate 18 29 H Respiratory Effort / Characteristics Spontaneous Blood Pressure 132/74 Blood Pressure [Right Arm] 132/74 Blood Pressure Mean 99 Blood Pressure Mean [Right Arm] 93 Blood Pressure Position [Right Arm] Lying Pulse Oximetry 95 91 Oxygen Delivery Method Room Air Laboratory Data 10/28/23 03:28 10/28/23 03:28 Lab Results 10/27/23 10/27/23 Range/Units 08:57 09:36 WBC 9.32 (4.8-10.8) K/ul RBC 5.87 (4.70-6.10) M/uL Hgb 16.8 (14.0-18.0) g/dl Hct 48.7 (42.0-52.0) % MCV 83.0 (80.0-100.0) fL MCH 28.6 (25.0-34.0) pg MCHC 34.5 (32.0-36.0) g/dL RDW Std Deviation 39.8 (36.4-46.3) fL RDW Coeff of Nam 13.3 (11.5-14.5) % Plt Count 195 (130-400) K/uL MPV 11.1 (9.4-12.4) fL Immature Gran % (Auto) 0.3 % Neut % (Auto) 85.9 % Lymph % (Auto) 4.4 % Wood % (Auto) 7.5 % Eos % (Auto) 1.7 % Baso % (Auto) 0.2 % Neut # (Auto) 8.00 H (1.40-6.50) K/uL Lymph # (Auto) 0.41 L (1.20-3.40) K/uL Wood # (Auto) 0.70 H (0.11-0.59) K/uL Eos # (Auto) 0.16 (0.00-0.50) K/uL Baso # (Auto) 0.02 (0.00-0.20) K/uL Immature Gran # (Auto) 0.03 (0.01-0.20) K/uL PT 11.6 (9.0-12.0) Seconds INR 1.1 (0.9-1.1) Sodium 139 (136-145) mmol/L Potassium 3.6 (3.5-5.1) mmol/L Chloride 106 (98-107) mmol/L Carbon Dioxide 23 (21-32) mmol/L Anion Gap 10 (3-11) BUN 13 (6-23) mg/dl Creatinine 1.02 (0.6-1.4) mg/dl Est Cr Clr Drug Dosing 106.6 ml/min Est GFR ( Amer) 95.5 ml/min Est GFR (Non-Af Amer) 82.4 ml/min BUN/Creatinine Ratio 12.7 (10-20) Glucose 98 (70-99(Fasting)) mg/dl Calcium 9.2 (8.6-10.3) mg/dl Magnesium 2.0 (1.7-2.4) mg/dl Total Bilirubin 0.9 (0.2-1.0) mg/dl AST 18 (13-39) U/L ALT 16 (7-52) U/L Alkaline Phosphatase 46 (34-104) U/L Troponin I High Sens 17.0 (0-20) pg/ml Total Protein 6.8 (6.0-8.3) gm/dl Albumin 4.2 (3.4-5.0) gm/dl Globulin 2.6 (2.5-4.0) gm/dl Albumin/Globulin Ratio 1.6 (0.9-2) Lipase 15 (11-82) U/L TSH 2.614 (0.300-4.500) uIu/ml Adenovirus (PCR) Not Detected (NotDetected) B. pertussis DNA (PCR) Not Detected (NotDetected) B.parapertussis DNA PCR Not Detected (NotDetected) C. pneumoniae DNA (PCR) Not Detected (NotDetected) Coronavirus OC43 (PCR) Not Detected (NotDetected) Coronavirus HKU1 (PCR) Not Detected (NotDetected) Coronavirus 229E (PCR) Not Detected (NotDetected) SARS-CoV-2 (PCR) DETECTED A* (NotDetected) Coronavirus NL63 (PCR) Not Detected (NotDetected) Human Metapneumovir PCR Not Detected (NotDetected) Influenza Type A (PCR) Not Detected (NotDetected) Influenza Type B (PCR) Not Detected (NotDetected) M. pneumoniae (PCR) Not Detected (NotDetected) Parainfluenza 1 (PCR) Not Detected (NotDetected) Parainfluenza 2 (PCR) Not Detected (NotDetected) Parainfluenza 3 (PCR) Not Detected (NotDetected) Parainfluenza 4 (PCR) Not Detected (NotDetected) RSV (PCR) Not Detected (NotDetected) Entero/Rhino (PCR) Not Detected (NotDetected) Administered Medications Acetaminophen (Acetaminophen 325 Mg Tab) 650 mg PO Q4H PRN PRN Reason: Pain or Fever Stop: 11/26/23 16:26 Last Admin: 10/28/23 12:27 Dose: 650 mg Documented By: Admin: 10/28/23 08:42 Dose: 650 mg Documented By: Admin: 10/28/23 01:05 Dose: 650 mg Documented By: IVÁN Apixaban (Apixaban 2.5 Mg Tab) 2.5 mg PO BID [facility] Stop: 11/26/23 20:59 Last Admin: 10/28/23 08:46 Dose: 2.5 mg Documented By: Admin: 10/27/23 21:15 Dose: 2.5 mg Documented By: LEXI Benzonatate (Benzonatate 100 Mg Capsule) 100 mg PO TID [facility] Stop: 11/26/23 20:59 Last Admin: 10/28/23 13:03 Dose: 100 mg Documented By: Admin: 10/28/23 08:44 Dose: 100 mg Documented By: Admin: 10/27/23 21:14 Dose: 100 mg Documented By: LEXI Carvedilol (Carvedilol 25 Mg Tab) 25 mg PO BID [facility] Stop: 11/26/23 20:59 Last Admin: 10/28/23 08:45 Dose: 25 mg Documented By: Admin: 10/27/23 21:14 Dose: 25 mg Documented By: LEXI Cyclobenzaprine HCl (Cyclobenzaprine Hcl 10 Mg Tab) 10 mg PO HS [facility] Stop: 11/26/23 20:59 Last Admin: 10/27/23 21:13 Dose: 10 mg Documented By: LEXI Famotidine (Famotidine 20 Mg Tab) 20 mg PO BID [facility] Stop: 11/26/23 20:59 Last Admin: 10/28/23 08:42 Dose: 20 mg Documented By: Admin: 10/27/23 21:15 Dose: 20 mg Documented By: LEXI Fluticasone Propionate (Fluticasone Propionate Na Spr 16 Gm Btl) 1 sprays NA DAILY [facility] Stop: 11/27/23 08:59 Last Admin: 10/28/23 08:44 Dose: 1 sprays Documented By: LAURYN Fluticasone/Vilanterol (Fluticasone/Vilanterol 100/25mcg 14 Puffs/Inhaler) 1 puffs INH DAILY [facility]; Protocol Stop: 11/27/23 08:59 Last Admin: 10/28/23 08:50 Dose: 1 puffs Documented By: LAURYN Melatonin (Melatonin 3 Mg Tab) 6 mg PO HSZ [facility] Stop: 11/26/23 21:59 Last Admin: 10/27/23 21:09 Dose: 6 mg Documented By: LEXI Metoprolol Succinate (Metoprolol Succ 50mg Ext Rel Tab) 50 mg PO DAILY [facility] Stop: 11/27/23 08:59 Last Admin: 10/28/23 08:45 Dose: 50 mg Documented By: LAURYN Miscellaneous (Order Awaiting Action) 1 each N/A QS [facility] Stop: 11/27/23 00:00 Last Admin: 10/28/23 16:30 Dose: Not Given Documented By: Admin: 10/28/23 07:53 Dose: Not Given Documented By: Admin: 10/28/23 00:07 Dose: Not Given Documented By: JAS Montelukast Sodium (Montelukast Sodium 10 Mg Tablet) 10 mg PO QAM [facility] Stop: 11/27/23 08:59 Last Admin: 10/28/23 08:45 Dose: 10 mg Documented By: LAURYN Nirmatrelvir/Ritonavir (Nirmatrelvir/Ritonavir 1 Ea Tab) 3 each PO BID [facility] Stop: 11/26/23 20:59 Last Admin: 10/28/23 08:42 Dose: 3 each Documented By: Admin: 10/27/23 21:13 Dose: 3 each Documented By: LEXI Ondansetron HCl (Ondansetron Inj 2 Mg/Ml 2 Ml Vial) 4 mg IV Q6H PRN PRN Reason: Nausea Stop: 11/26/23 16:26 Last Admin: 10/28/23 12:30 Dose: 4 mg Documented By: Admin: 10/28/23 08:41 Dose: 4 mg Documented By: LAURYN Sacubitril/Valsartan (Valsartan/Sacubitril 103/97mg Tab) 0.5 tab PO BID [facility] Stop: 11/26/23 20:59 Last Admin: 10/28/23 08:43 Dose: 0.5 tab Documented By: Admin: 10/27/23 21:09 Dose: 0.5 tab Documented By: KRYSTAJ Discontinued Medications Acetaminophen/Butalbital/Caffeine (Butalbital/Acetamin/Caffeine Tab) 1 tab PO NOW STA Stop: 10/28/23 14:48 Last Admin: 10/28/23 15:14 Dose: 1 tab Documented By: CPB Acetaminophen/Butalbital/Caffeine (Butalbital/Acetamin/Caffeine Tab) Confirm Administered Dose 1 tab PO .STK-MED ONE Stop: 10/28/23 15:11 Last Admin: 10/28/23 15:14 Dose: Not Given Documented By: CPB Carvedilol (Carvedilol 25 Mg Tab) 25 mg PO NOW ONE Stop: 10/27/23 10:47 Last Admin: 10/27/23 11:58 Dose: 25 mg Documented By: CHELLE Diphenhydramine HCl (Diphenhydramine 50 Mg/Ml Vial) 12.5 mg IV NOW STA Stop: 10/27/23 14:41 Last Admin: 10/27/23 14:58 Dose: 12.5 mg Documented By: MARIO Acetaminophen (Ofirmev) 1,000 mg in 100 mls @ 400 mls/hr IV NOW STA Stop: 10/27/23 09:20 Last Infusion: 10/27/23 09:56 Dose: Infused Documented By: Admin: 10/27/23 09:29 Dose: 400 mls/hr Documented By: HS Famotidine (Pepcid 20mg Iv Push) 20 mg in 5 mls @ 2.5 mls/min IV NOW STA Stop: 10/27/23 10:05 Last Admin: 10/27/23 10:24 Dose: 2.5 mls/min Documented By: HS Sodium Chloride (Nss) 500 mls @ 999 mls/hr IV .Q31M ONE Stop: 10/27/23 11:06 Last Infusion: 10/27/23 13:30 Dose: Infused Documented By: Admin: 10/27/23 11:59 Dose: 999 mls/hr Documented By: AMS Sodium Chloride (Nss) 500 mls @ 999 mls/hr IV .Q31M ONE Stop: 10/27/23 13:59 Last Infusion: 10/27/23 17:41 Dose: Infused Documented By: Admin: 10/27/23 13:31 Dose: 999 mls/hr Documented By: CHELLE Acetaminophen (Ofirmev) 1,000 mg in 100 mls @ 400 mls/hr IV NOW STA Stop: 10/27/23 14:01 Last Infusion: 10/27/23 17:35 Dose: Infused Documented By: Admin: 10/27/23 14:58 Dose: 400 mls/hr Documented By: MARIO Prochlorperazine (Compazine) 1 mls @ 1 mls/min IV ONE ONE Stop: 10/27/23 14:41 Last Admin: 10/27/23 14:57 Dose: 1 mls/min Documented By: MARIO Digoxin 250 mcg/ Syringe 10 mls @ 2 mls/min IV 1700 ONE Stop: 10/27/23 17:04 Last Admin: 10/27/23 17:20 Dose: 2 mls/min Documented By: JESÚS Digoxin 250 mcg/ Syringe 10 mls @ 2 mls/min IV ONE ONE Stop: 10/27/23 21:24 Last Admin: 10/27/23 21:15 Dose: 2 mls/min Documented By: LEXI Metoprolol Succinate (Metoprolol Succ 50mg Ext Rel Tab) 50 mg PO NOW STA Stop: 10/27/23 12:57 Last Admin: 10/27/23 13:29 Dose: 50 mg Documented By: CHELLE Metoprolol Tartrate (Metoprolol Tartrate 1 Mg/Ml Vial) 5 mg IV NOW STA Stop: 10/27/23 09:59 Last Admin: 10/27/23 10:24 Dose: 5 mg Documented By: JESÚS Montelukast Sodium (Montelukast Sodium 10 Mg Tablet) 10 mg PO NOW ONE Stop: 10/27/23 12:40 Last Admin: 10/27/23 13:29 Dose: 10 mg Documented By: CHELLE Ondansetron HCl (Ondansetron Inj 2 Mg/Ml 2 Ml Vial) 4 mg IV NOW STA Stop: 10/27/23 10:05 Last Admin: 10/27/23 10:24 Dose: 4 mg Documented By: JESÚS Ondansetron HCl (Ondansetron Inj 2 Mg/Ml 2 Ml Vial) 4 mg IV NOW STA Stop: 10/28/23 14:48 Last Admin: 10/28/23 15:14 Dose: 4 mg Documented By: CPB Imaging Data Radiologist's Impression: Chest X-Ray 10/27/23 09:06 XR chest 1V portable HISTORY: Shortness of breath. Atypical chest pain. COMPARISON: Chest 01/05/2023. FINDINGS: No pneumothorax. No pleural effusions. The heart remains enlarged. No focal lung consolidations to suggest a pneumonia. No evidence for pulmonary edema. No acute fractures identified. IMPRESSION: Stable cardiomegaly. Otherwise, no acute process within the chest. ACT 112: Negative or not required by law. Electronically signed by: Adrian Willis M.D. 10/27/2023 9:[address] 10/27/23 15:12 CT head/brain wo con CLINICAL HISTORY: headache Technique: Contiguous axial CT images of the head were acquired from the base of the skull to the vertex without intravenous contrast administration. Images were viewed in brain, subdural and bone windows. Automated dose lowering techniques and/or adjustment according to patient size were utilized for this exam. Comparison: Comparison is made to CT head 01/30/2023 Findings: The ventricles, basal cisterns, and cerebral sulci are normal. There is no acute intracranial hemorrhage or evidence of acute territorial infarction. Neither mass effect, shift of the midline structures, nor abnormal extra-axial fluid collections are shown. Imaged portions of the paranasal sinuses and mastoid air cells are clear. The orbits appear normal. There are no acute fractures of the calvaria or scalp swelling. Impression: No acute intracranial hemorrhage, no evidence of acute territorial infarction or other acute intracranial disease process. ACT 112: Negative or not required by law. Electronically signed by: Elkin Moran M.D. 10/27/2023 3:32 PM Discharge Plan Visit Data Chief Complaint: Chest Pain Stated Complaint: chest pain,sob,nausea,cough,has afib,hr 150 ED Provider: Perla Cage Discharge Problem: Chest pain, Dyspnea, Atrial fibrillation with rapid ventricular response, COVID-19 Discharge Instructions Interventions: ED Discharge Assessment Last Done: 10/27/23 18:54
[2023-10-27 09:32] LABS: Basophils # (auto) 0.02 K/uL (0.00-0.20); Basophils % (auto) 0.2 %; Eosinophils # (auto) 0.16 K/uL (0.00-0.50); Eosinophils % (auto) 1.7 %; Hematocrit (blood only) 48.7 % (42.0-52.0); Hemoglobin 16.8 g/dl (14.0-18.0); Immature Granulocytes # (auto) 0.03 K/uL (0.01-0.20); Immature Granulocytes % (auto) 0.3 %; Lymphocytes # (auto) 0.41 K/uL (1.20-3.40); Lymphocytes % (auto) 4.4 %; Mean Corpuscular Hemoglobin 28.6 pg (25.0-34.0); Mean Corpuscular Hgb Conc 34.5 g/dL (32.0-36.0); Mean Platelet Volume 11.1 fL (9.4-12.4); Monocytes % (auto) 7.5 %; Neutrophils % (auto) 85.9 %; Platelet Count 195 K/uL (130-400); RDW Coefficient of Variation 13.3 % (11.5-14.5); RDW Standard Deviation 39.8 fL (36.4-46.3); Red Blood Count 5.87 M/uL (4.70-6.10); White Blood Count 9.32 K/ul (4.8-10.8)
[2023-10-27 09:45] LABS: Albumin Globulin Ratio 1.6 (0.9-2); Albumin Level 4.2 gm/dl (3.4-5.0); BUN Creatinine Ratio 12.7 (10-20); Bilirubin,Total 0.9 mg/dl (0.2-1.0); Calcium 9.2 mg/dl (8.6-10.3); Creatinine Clr Calc Pharmacy 106.6 ml/min; Est GFR (African American) 95.5 ml/min; Est GFR (Non-African American) 82.4 ml/min; Globulin 2.6 gm/dl (2.5-4.0); Potassium 3.6 mmol/L (3.5-5.1); Total Protein 6.8 gm/dl (6.0-8.3)
--- OUTSIDE RECORDS SUMMARY | 2023-10-27 09:55 | External Medical Summary | Continuity of Care Document ---
Author Name Unknown Organization [facility] [address] [id number] Care Team Providers Care Supervisor Cabinetmaker Name Role Phone Brianna Cornell Primary Care Physician [phone] Encounter [facility] [id number] Date(s): 06/29/23 - 06/29/23 [facility] [address] [place], [place] [address]Hxyaq [phone] Encounter Diagnosis HFrEF (heart failure with reduced ejection fraction)(Discharge Diagnosis) - 06/29/23 Persistent atrial fibrillation(Discharge Diagnosis) - 06/29/23 Insomnia(Discharge Diagnosis) - 06/29/23 Daytime hypersomnolence(Discharge Diagnosis) - 06/29/23 Discharge Disposition: Home or Self Care Attending Physician: DO Ahuja Franklin J Allergies, Adverse Reactions, Alerts Substance Reaction Severity Status erythromycin Active penicillins Active Keflex unknown Active Rocephin rash Active cefTRIAXone hives Active Assessment and Plan Extracted from: Title:Office Visit Note Author:DO Cornell Alonn a Paige Date:06/30/23 1.HFrEF (heart failure wit h reduced ejection fraction) - Chronic, stable - Likely w/w persistent A Fib (s/p Cardioversion, ongoing beta fish/Eliquis) - Continue Carvedilol, Entresto, and PRN Lasix - Discussed addition of Jardiance (SGLT2) - Continue Cardiac rehab and dietary modifications (low salt) - Continue to follow with HF clinic and Dr. Ventura (Cardiology) 2.Persistent atrial fibrillation - See above 3.Insomnia - Acute on chronic - Ongoing Valium 5 mg nightly (CSA completed at visit) - Continues to awaken at night with racing thoughts - Possible anxiety component - Consideration given to CLAUDIA, sleep study ordered d/t day time hypersomnolence and increased upper airway sounds at night - Will pursue further anxiety management pending sleep study - Long-term goal to d/c benzodiazepine Immunizations Given and Recorded Vaccine Date Status Refusal Reason SARS-CoV-2 (COVID-19) mRNA BNT-162b2 vax 1 11/20/21 Recorded SARS-CoV-2 (COVID-19) mRNA BNT-162b2 vax 03/07/21 Recorded SARS-CoV-2 (COVID-19) mRNA BNT-162b2 vax 02/14/21 Recorded influenza virus vaccine, inactivated 09/06/18 Jose M rded influenza virus vaccine, inactivated 01/03/18 Jose M rded influenza virus vaccine, inactivated 2 09/28/15 Re corded influenza virus vaccine, inactivated 09/26/13 Give n 1Result Comment: 2022-08-26: Historical information-source unspecified 2Result Comment: [10/01/2015] Got at [facility] Medications Advair Diskus 500 mcg-50 mcg Start: 08/26/22 9:44:00 EDT, See Instructions, Disp# 60 blister, Refills: 5, inhale 1 dose by mouthtwice a day, Pharmacy: [facility] #[id number] Start Date: 08/26/22 Status: Ordered albuterol 90 mcg/inh inhalation powder Start: 01/19/23 13:51:00 EST, 1 Unknown, Unknown, 1 inh INH as needed; Start Date: 01/19/23 Status: Ordered albuterol CFC free 90 mcg/inh MDI Start: 11/21/22 8:38:00 EST, 4 puff, inhaled, qid, Disp# 2 each, Refills: 3, PRN: as needed for wheezing, Pharmacy: [facility] #[id number] Start Date: 11/21/22 Stop Date: 03/21/23 Status: Ordered albuterol-ipratropium 2.5 mg-0.5 mg/3 mL inhalation solution Start: 08/26/22 9:38:00 EDT, 3 mL, inhaled, q6h, PRN: as needed for shortness of breath or wheezing Start Date: 08/26/22 Status: Ordered Alina 24 Hour Allergy oral tablet Start: 08/26/22 9:41:00 EDT Start Date: 08/26/22 Status: Ordered Calcium and Magnesium oral tablet Start: 10/31/15 10:11:00, 1 tab, PO, qhs Start Date: 10/31/15 Status: Ordered carvedilol 25 mg oral tablet Start: 03/23/23 8:18:00 EDT, 1 tab, PO, bid Start Date: 03/23/23 Status: Ordered cyclobenzaprine 10 mg oral tablet Start: 05/12/23 11:27:00 EDT, See Instructions, Disp# 60 tab, Refills: 0, take 1 tablet by mouth twice a day if needed for muscle spasm, Pharmacy: [facility] #[id number] Start Date: 05/12/23 Status: Ordered diazePAM 5 mg oral tablet Start: 06/29/23 19:16:00 EDT, 1 tab, PO, qhs, Disp# 30 tab, Refills: 0, Note to Pharmacy: PDMP verified, PRN: sleep, Pharmacy: [facility] #[id number] Start Date: 06/29/23 Status: Ordered Efudex 5% topical cream Start: 05/28/23 16:09:00 EDT, 1 appl, topical, bid, Disp# 40 g, Refills: 0, apply to face for 4 weeks and then stop, Pharmacy: [facility] #[id number] Start Date: 05/28/23 Status: Ordered Eliquis 5 mg oral tablet Start: 01/19/23 13:57:00 EST, 1 tab, PO, bid Start Date: 01/19/23 Status: Ordered Entresto 97 mg-103 mg oral tablet Start: 05/28/23 15:38:00 EDT, 1 tab, PO, bid Start Date: 05/28/23 Status: Ordered famotidine 20 mg oral tablet Start: 03/23/23 8:20:00 EDT, 1 tab, PO, Daily Start Date: 03/23/23 Status: Ordered fluticasone 50 mcg/inh nasal spray Start: 03/03/23 21:45:00 EDT, See Instructions, Disp# 16 g, Refills: 2, instill 2 sprays into each nostril once daily, [facility]acy: [facility] #[id number] Start Date: 03/03/23 Status: Ordered furosemide 20 mg oral tablet Start: 12/25/22 14:17:00 EST, 1 tab, PO, Daily Start Date: 12/25/22 Status: Ordered inhaler spacer Start: 02/01/18 14:25:00, See Instructions, Disp# 1 each, UD, Pharmacy: [facility] [place] [address] Start Date: 02/01/18 Status: Ordered Mag-SR with Calcium Start: 05/28/23 15:39:00 EDT, Daily Start Date: 05/28/23 Status: Ordered melatonin 5 mg oral tablet Start: 08/13/18 16:26:00 EDT, 1 tab, PO, qhs, PRN: Insomnia Start Date: 08/13/18 Status: Ordered montelukast 10 mg oral tablet Start: 06/05/23 10:34:00 EDT, See Instructions, Disp# 90 tab, Refills: 0, take 1 tablet by mouth every evening, Pharmacy: [facility] #[id number] Start Date: 06/05/23 Status: Ordered Multiple Vitamins oral tablet Start: 09/26/13 14:39:00, 1 tab, PO, Daily Start Date: 09/26/13 Status: Ordered naproxen 500 mg oral tablet Start: 09/24/22 10:43:00 EDT, 1 tab, PO, bid, Disp# 60 tab, PRN: as needed for pain, Pharmacy: [facility] #[id number] Start Date: 09/24/22 Stop Date: 10/24/22 Status: Ordered Potassium Chloride (Eqv-K-Tab) 10 mEq oral tablet, extended release Start: 12/29/22 11:07:00 EST, 1 tab, PO, Daily, Disp# 30 tab, Refills: 2, Pharmacy: [facility] #[id number] Start Date: 12/29/22 Stop Date: 03/29/23 Status: Ordered sacubitril-valsartan 97 mg-103 mg oral tablet Start: 03/23/23 8:21:00 EDT, 1 tab, bid Start Date: 03/23/23 Status: Ordered Vitamin C 500 mg oral tablet Start: 09/26/13 14:39:00, 1 tab, PO, Daily Start Date: 09/26/13 Status: Ordered Vitamin D3 2000 intl units oral tablet Start: 06/04/15 9:06:00, 1 tab, PO, Daily Start Date: 06/04/15 Status: Ordered Mental Status 06/29/23 Barriers to Learning one year None evide nt Mandatory Health Literacy Documentation Yes Health Literacy Communication Barriers N ever Primary Language Algerian Problem List Condition Confirmation Course Effective Dates Status H ealth Status Informant AIVR (accelerated idioventricular rhythm) Confirmed Active Witnessed apneic spells Confirmed Active Benign hypertension Confirmed Active Cardiomegaly Confirmed Active HFrEF (heart failure with reduced ejection fraction) Confirmed Active History of recurrent pneumonia Confirmed Active Insomnia Confirmed Active Persistent atrial fibrillation Confirmed Active Severe persistent asthma Confirmed Active Tobacco user Confirmed Active Weight disorder Confirmed Active Diagnosis Diagnosis Type Effective Dates Health Status Clinical Service Informant Insomnia Discharge Diagnosis 06/29/23 Persistent atrial fibrillation Discharge Diagnosis 06/29/23 HFrEF (heart failure with reduced ejection fraction) Discharge Diagnosis 06/29/23 Daytime hypersomnolence Discharge Diagnosis 06/29/23 Non-Specified Procedures Procedure Date Related Diagnosis Body Site Status Colonoscopy 1 06/01/[address] 2 01/30/[address] ANGIOGRAPHY HEAD 3 01/30/23 Com pleted MRI of brain 4 01/30/[address] 5 12/02/22 Completed Chest X-ray 6 12/12/19 Completed Colonoscopy 7 04/08/19 Completed Examination of eye 8 06/19/17 Comp leted Echocardiogram 9 04/17/17 Complete d Exercise stress echocardiography 10 04/13/17 Completed MR,left shoulderI 11/06/[address] - Computerised tomography ,head noncontrast 10/19/16 Completed Colonoscopy 11, 12 04/08/16 Comple lela Mohs surgery 13 Completed Procedure on knee Complet ed Tonsillectomy Completed 1Impression: -Non-bleeding internal hemorrhoids -Diverticulosis in the sigmoid colonm in the descending colon and in the ascending colon -Repeat in 5-10 years 2IMPRESSION: 1. There is no hemorrhage, mass effect, or evidence of acute territorial ischemia by CT criteria. 2. Unremarkable CT angiogram of the brain. 3. Unremarkable CT angiogram of the neck. 3IMPRESSION: 1. There is no hemorrhage, mass effect, or evidence of acute territorial ischemia by CT criteria. 2. Unremarkable CT angiogram of the brain. 3. Unremarkable CT angiogram of the neck. 4IMPRESSION: No acute abnormality and in particular no evidence of acute infarct. 5Impression: 1. Moderate cardiomegaly which has developed since prior CT> Given symptoms, cardiology consultation might be considered. 2. Mild dilatation of the central pulmonary arteries. This raises the possibility of pulmonary arterial hypertension. 3. Ground glass opacities which favor atelectasis. No consolidation to suggest pneumonia. No CT evidence for interstitial lung disease. 6No active disease in the chest. 7COLO to cecum, pandiveriticulosis, hemorrhids, repeat colo 3 years. 8No pathology related to hypertension in either eye. No evidence for glaucoma or macular degeneration. Return in 1 year for another dilated exam. 91. Mildly dilated left ventricle with low-normal systoloc function. EF 50-55%. No definite regionalwall motion abnormalities. No left ventricular hypertrophy. Type 1 diastolic dysfunction. 2. No significant valvular abnormalities. 3. Normal estimated right ventricular systolic pressure; RVSP 22mmHg 4. Technically difficult study, enhanced with IV definity. 5. No prior study available for comparison.d 101. Negative stress echo for ischemia at 101% MPHR. 2. Negative exercise ECG for ischemia at 101% MPHR. 3. No arrhythmoa. 4. No chest pain reported. 5. Mildly hypertensive response to exercise. 6. Good exercise tolerance. 7. Technically difficult study enhanced with IV Dfefinity. 11COLO to cecum, diverticulosis, hemorrhoids 12repeat colo 3 years (brother with CRC at age 52). 13Nose Vital Signs Most recent to oldest [Reference Range]: 1 Patient Weight 105.1 kg (06/29/23 3:55 PM) Temperature [36.5-37.9 DegC] 36.8 DegC (06/29/23 3:55 PM) Blood Pressure 120/74mmHg (06/29/23 3:55 PM) BP Location # 1 Left Arm (06/29/23 3:55 PM) Social History Social History Type Response Smoking Status Never smoked cigaret asuncion Sex FCM Outpt Note * MD [place] Amy L: MODIFY MD [place] Amy L: MODIFY, MODIFY Event Display: FCM Outpt Note Authored Date: [id number] Chief Complaint pt here for f/u- needs CSA History of Present Illness Joselo is a 57 year old male with history of HFrEF, persistent A Fib, insomnia, HTN, cardiomegaly, severe asthma, tobacco use, and apneic spells who presents for follow up visit. HFrEF - Considered 2/2 A Fib (required cardioversion to return to NSR) - Ongoing Coreg, Entresto, and PRN Lasix (1x per month) - No active SGLT2 or IGGY (considered by Cardiology) - Last Cardiology visit March 2023, upcoming in July (Dr. Ventura) - Ongoing Cardiac Rehab and follow up with HF Clinic (Gabriella Elizabeth) - Next Echo scheduled in July - On Eliquis for anticoagulation in A Fib - Changed diet significantly - Generally weighs himself daily, no significant weight changes Insomnia/Anxiety - Notes he is commonly awakened by racing thoughts - halfway Valium 5 mg - Prior failure of Melatonin/Ambien - CLAUDIA evaluation - not yet complete - Tried Paroxetine years ago w/o benefit for anxiety - Occasional daytime hypersomnolence (worse in evenings) - concerned for significant snoring and wheezing at night - Increased airway sounds when sleeping on the back Asthma - Singulair Daily - Occasional Flonase - Has not needed Albuterol Physical Exam Vitals & Measurements T:36.8C BP:120/74 SpO2:98% WT:105.100kg(Dosing) WT:105.1kg PHQ2 Data(Data Documented on:06/29/2023 15:49) Emotional health assessment NEGATIVE General: NAD, well appearing, alert, interactive HEENT: NC/AT, PERRL, EOMI, patent nares, MMM Neck: Supple, no LAD, normal ROM, no JVD Respiratory: Non-labored, no wheezing/rhonchi/rales, CTAB Cardiovascular: RRR, normal S1/S2, no murmur/rubs/gallops Abdomen: Soft, non-distended, no TTP, normoactive bowel sounds, no masses Extremities: refill <2s, 2+ dp bilaterally, no peripheral edema Neurologic: Alert/oriented X3, no focal neurologic defects Skin: Intact, no rashes/lesions/erythema Assessment/Plan 1.HFrEF (heart failure with reduced ejection fraction) - Chronic, stable - Likely w/w persistent A Fib (s/p Cardioversion, ongoing beta fish/Eliquis) - Continue Carvedilol, Entresto, and PRN Lasix - Discussed addition of Jardiance (SGLT2) - Continue Cardiac rehab and dietary modifications (low salt) - Continue to follow with HF clinic and Dr. Ventura (Cardiology) 2.Persistent atrial fibrillation - See above 3.Insomnia - Acute on chronic - Ongoing Valium 5 mg nightly (CSA completed at visit) - Continues to awaken at night with racing thoughts - Possible anxiety component - Consideration given to CLAUDIA, sleep study ordered d/t day time hypersomnolence and increased upper airway sounds at night - Will pursue further anxiety management pending sleep study - Long-term goal to d/c benzodiazepine Attestation Attestation -I discussed and evaluated this patient with Dr. Cornell. The assessment and plan was developed with her and carried out at my direction. I have read and agree with her note. Problem List/Past Medical History Ongoing AIVR (accelerated idioventricular rhythm) Benign hypertension Cardiomegaly HFrEF (heart failure with reduced ejection fraction) History of recurrent pneumonia Insomnia Persistent atrial fibrillation Severe persistent asthma Tobacco user Weight disorder Witnessed apneic spells Historical Adhesive capsulitis of left shoulder Asthma Asthma Calcific tendonitis of left shoulder Concussion Cramp in lower limb Epistaxis Left shoulder pain LRTI (lower respiratory tract infection) Strain of tendon of right rotator cuff Procedure/Surgical History Colonoscopy (06/01/2023)MRI of brain (01/30/2023)Chest CT (01/30/2023)CT ANGIOGRAPHY HEAD (01/30/2023)Chest CT (12/02/2022)Chest X-ray (12/12/2019)Colonoscopy (04/08/2019)Examination of eye (06/19/2017)Echocardiogram (04/17/2017)Exercise stress echocardiography (04/13/2017)MR,left shoulderI (11/06/2016)CT - Computerised tomography,head noncontrast (10/19/2016)Colonoscopy (04/08/2016)Mohs surgeryProcedure on kneeTonsillectomy Medications albuterol(albuterol CFC free 90 mcg/inh MDI), 4 puff, inhaled, qid, PRN, 3 refills albuterol(albuterol 90 mcg/inh inhalation powder) albuterol-ipratropium(albuterol-ipratropium 2.5 mg-0.5 mg/3 mL inhalation solution), 3 mL, inhaled,q6h, PRN apixaban(Eliquis 5 mg oral tablet), 5 mg= 1 tab, PO, bid ascorbic acid(Vitamin C 500 mg oral tablet), 500 mg= 1 tab, PO, Daily carvedilol(carvedilol 25 mg oral tablet), 25 mg= 1 tab, PO, bid cholecalciferol(Vitamin D3 2000 intl units oral tablet), 2000 Int_Unit= 1 tab, PO, Daily cyclobenzaprine(cyclobenzaprine 10 mg oral tablet), See Instructions diazePAM(diazePAM 5 mg oral tablet), 5 mg= 1 tab, PO, qhs, PRN famotidine(famotidine 20 mg oral tablet), 20 mg= 1 tab, PO, Daily fexofenadine(Alina 24 Hour Allergy oral tablet) fluorouracil topical(Efudex 5% topical cream), 1 appl, topical, bid fluticasone nasal(fluticasone 50 mcg/inh nasal spray), See Instructions, 2 refills fluticasone-salmeterol(Advair Diskus 500 mcg-50 mcg), See Instructions, 5 refills furosemide(furosemide 20 mg oral tablet), 20 mg= 1 tab, PO, Daily inhalation accessory(inhaler spacer), See Instructions melatonin(melatonin 5 mg oral tablet), 5 mg= 1 tab, PO, qhs, PRN montelukast(montelukast 10 mg oral tablet), See Instructions multivitamin(Multiple Vitamins oral tablet), 1 tab, PO, Daily multivitamin with minerals(Calcium and Magnesium oral tablet), 1 tab, PO, qhs multivitamin with minerals(Mag-SR with Calcium), Daily naproxen(naproxen 500 mg oral tablet), 500 mg= 1 tab, PO, bid, PRN potassium chloride(Potassium Chloride (Eqv-K-Tab) 10 mEq oral tablet, extended release), 10 mEq= 1 tab, PO, Daily, 2 refills sacubitril-valsartan(sacubitril-valsartan 97 mg-103 mg oral tablet), 1 tab, bid sacubitril-valsartan(Entresto 97 mg-103 mg oral tablet), 1 tab, PO, bid Allergies Keflexunknown Rocephinrash cefTRIAXonehives erythromycin penicillins Social History Smoking Status Never smoked cigarettes Employment/School 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 Health Status Family Member(s) Father: History is negative Immunizations Vaccine Date Status SARS-CoV-2 (COVID-19) mRNA BNT-162b2 vax 11/20/2021 Recorded Comments : 2022-08-26: Historical information-source unspecified SARS-CoV-2 (COVID-19) mRNA BNT-162b2 vax 03/07/2021 Recorded SARS-CoV-2 (COVID-19) mRNA BNT-162b2 vax 02/14/2021 Recorded influenza virus vaccine, inactivated - Not Given Comments : Already received vaccine influenza virus vaccine, inactivated 09/06/2018 Recorded influenza virus vaccine, inactivated 01/03/2018 Recorded influenza virus vaccine, inactivated 09/28/2015 Recorded Comments : [10/01/2015] Got at [facility] influenza virus vaccine, inactivated 09/26/2013 Given Recommendations Health Maintenance Pending(in the next year) OverDue Adult Influenza Vaccine due05/23/23and every 1year Due Adult COVID-19 Vaccination due06/30/23Unknown Frequency Adult Tdap/Td Vaccine due06/30/23Unknown Frequency Hepatitis C Screening due06/30/23One-time only Pneumococcal Vaccine Adults and Adolescents with Chronic Illness due06/30/23One-time only Shingles Vaccine due06/30/23One-time only Due In Future Body Mass Index not due until06/28/24and every 1year Satisfied(in the past 1 year) Satisfied Body Mass Index on04/27/23.Satisfied by COLLEEN Torres Paul Electronic Signature on File Electronically Reviewed/Signed by: Brianna Cornell DO Author Signature Dt/Tm:06/30/2023 08:09 PM Resident Department of Family Medicine Electronically Reviewed/Signed by: Brianna Cornell DO Cosigner Signature Dt/Tm: 06/30/2023 08:11 PM Resident Department of Family Medicine Electronically Reviewed/Signed by: Clarisa Montana MD Cosigner Signature Dt/Tm: 06/30/2023 08:24 PM Re Recording Mixer [facility] [address], [address] [place] [address] APQ Patient Care team information Care Team Personnel Name: Nina Ibrahim Position: HIS Supervisor_P Member Role: HIS Lifetime Name: DO Cornell Alonna Paige Position: Resident Member Role: Primary Care Provider Address: Address: [address] [place] [address] [place] Care Team Related Persons Name: JAE PERALTA Address: [place] Address: home [address] [place], [place] [phone] Name: UMA PERALTA Address: [place] Address: home [address] [place], [phone] Name: MIGEL PERALTA Address: [place] Address: home [address] [place], [place] [id number] Name: CESAR PERALTA Address: home [address] [place], [place] [phone] Name: CESAR PERALTA Address: [place] Address: home [address] [place], [place] [id number]
--- OUTSIDE RECORDS SUMMARY | 2023-10-27 09:55 | External Medical Summary | Continuity of Care Document ---
Author Name Unknown Organization [facility] [address] [facility] [address] [id number] Care Team Providers Care Security Guard Name Role Phone Brianna Cornell Primary Care Physician [phone] Encounter [facility] VIJAYA [id number] Date(s): 09/15/23 - 09/15/23 [facility] [address] [facility] [address] [id number] Encounter Diagnosis Epidermal inclusion cyst(Discharge Diagnosis) - 09/15/23 AK (actinic keratosis)(Discharge Diagnosis) - 09/15/23 Discharge Disposition: Home or Self Care Attending Physician: MD Phelan Thomas A Referring Physician: MD Phelan Thomas A Allergies, Adverse Reactions, Alerts Substance Reaction Severity Status erythromycin Active penicillins Active Keflex unknown Active Rocephin rash Active bananas Vomiting Active cefTRIAXone hives Active Immunizations Given and Recorded Vaccine Date Status [...] information-source unspecified 2Result Comment: [10/01/2015] Got at [facility] Medications Advair Diskus 500 mcg-50 mcg Start: 08/26/22 9:44:00 EDT, See Instructions, Disp# 60 blister, Refills: 5, inhale 1 dose by mouthtwice a day, Pharmacy: [facility] #[id number] Start Date: 08/26/22 Status: Ordered albuterol 90 mcg/inh inhalation powder Start: 01/19/23 13:51:00 EST, 1 Unknown, Unknown, 1 inh INH as needed; Start Date: 01/19/23 Status: Ordered albuterol CFC free 90 mcg/inh MDI Start: 11/21/22 8:38:00 EST, 4 puff, inhaled, qid, Disp# 2 each, Refills: 3, PRN: as needed for wheezing, Pharmacy: [facility] #[id number] Start Date: 11/21/22 Stop Date: 03/21/23 Status: [...] Ordered cyclobenzaprine 10 mg oral tablet Start: 09/03/23 18:10:00 EDT, See Instructions, Disp# 30 tab, Refills: 0, take 1 tablet by mouth twice a day if needed for muscle spasm, Pharmacy: [facility] #[id number] Start Date: 09/03/23 Status: Ordered diazePAM 5 mg oral tablet Start: 09/03/23 18:12:00 EDT, 1 tab, PO, qhs, Disp# 30 tab, Refills: 0, Note to Pharmacy: PDMP verified, PRN: sleep, Pharmacy: [facility] #[id number] Start Date: 09/03/23 Status: Ordered Efudex 5% topical cream Start: 05/28/23 16:09:00 EDT, 1 appl, topical, bid, Disp# 40 g, Refills: 0, apply to face for 4 weeks and then stop, Pharmacy: [facility] #[id number] Start Date: 05/28/23 Status: Ordered Eliquis 5 mg oral tablet Start: 01/19/23 13:57:00 EST, 1 tab, PO, bid Start Date: 01/19/23 Status: Ordered Entresto 97 mg-103 mg oral tablet Start: 05/28/23 15:38:00 EDT, 1 tab, PO, bid Start Date: 05/28/23 Status: Ordered famotidine 20 mg oral tablet Start: 03/23/23 8:20:00 EDT, 1 tab, PO, Daily Start Date: 03/23/23 Status: Ordered Farxiga 10 mg oral tablet Start: 09/15/23 9:11:00 EDT, 1 tab, PO, Daily Start Date: 09/15/23 Status: Ordered fluticasone 50 mcg/inh nasal spray Start: 03/03/23 21:45:00 EDT, See Instructions, Disp# 16 g, Refills: 2, instill 2 sprays into each nostril once daily, Pharmacy: [facility] #[id number] Start Date: 03/03/23 Status: Ordered inhaler spacer Start: 02/01/18 14:25:00, See Instructions, Disp# 1 each, UD, Pharmacy: [id number] Start Date: 02/01/18 Status: Ordered Mag-SR with Calcium Start: 05/28/23 15:39:00 EDT, Daily Start Date: 05/28/23 Status: Ordered melatonin 5 mg oral tablet Start: 08/13/18 16:26:00 EDT, 1 tab, PO, qhs, PRN: Insomnia Start Date: 08/13/18 Status: Ordered montelukast 10 mg oral tablet Start: 09/07/23 20:30:00 EDT, 1 tab, PO, qPM, Disp# 90 tab, Refills: 0, Pharmacy: [facility] #[id number] Start Date: 09/07/23 Status: Ordered Multiple Vitamins oral tablet Start: 09/26/13 14:39:00, 1 tab, PO, Daily Start Date: 11/4/13 Status: Ordered Potassium Chloride (Eqv-K-Tab) 10 mEq oral tablet, extended release Start: 12/29/22 11:07:00 EST, 1 tab, PO, Daily, Disp# 30 tab, Refills: 2, Pharmacy: [facility] #[id number] Start Date: 12/29/22 Stop Date: 03/29/23 Status: Ordered Vitamin C 500 mg oral tablet Start: 09/26/13 14:39:00, 1 tab, PO, Daily Start Date: 09/26/13 Status: Ordered Vitamin D3 2000 intl units oral tablet Start: 06/04/15 9:06:00, 1 tab, PO, Daily Start Date: 06/04/15 Status: Ordered Mental Status 09/15/23 Barriers to Learning one year None evide nt Mandatory Health Literacy Documentation Yes Health Literacy Communication Barriers N ever Primary Language Qatari Problem List Condition Confirmation Course Effective Dates Status H ealth Status Informant AIVR (accelerated idioventricular rhythm) Confirmed Active AK (actinic keratosis) Confirmed Active Right ankle pain Confirmed Active Witnessed apneic spells Confirmed Active Benign hypertension Confirmed Active Cardiomegaly Confirmed Active Effusion, right ankle Confirmed Active HFrEF (heart failure with reduced ejection fraction) Confirmed Active History of recurrent pneumonia Confirmed Active Insomnia Confirmed Active Persistent atrial fibrillation Confirmed Active Severe persistent asthma Confirmed Active Tobacco user Confirmed Active Diagnosis Diagnosis Type Effective Dates Health Status Cl inical Service Informant Epidermal inclusion cyst Discharge Diagnosis 09/15/23 AK (actinic keratosis) Discharge Diagnosis 09/15/23 Procedures Procedure Date Related Diagnosis Body Site [...] (brother with CRC at age 52). 13Nose Social History Social History Type Response Smoking Status Never smoked cigaret asuncion Sex Patient Care team information Care Team Personnel Name: Nina Ibrahim Position: HIS Supervisor_P Member Role: HIS Lifetime Name: DO Cornell Alonna Paige Position: Resident Member Role: Primary Care Provider Address: Address: [facility] [address] [place] [phone] Care Team Related Persons Name: JAE PERALTA Address: [place] Address: home [address] [place], [place] [phone] Name: UMA PERALTA Address: [place] Address: home [address] [place], [phone] Name: MIGEL PERALTA Address: [place] Address: home [address] [place], [place] [phone] Name: CESAR PERALTA Address: home [address] [place], [place] [phone] Name: CESAR PERALTA Address: [place] Address: home [address] [place], [place] [phone]
--- OUTSIDE RECORDS SUMMARY | 2023-10-27 09:55 | External Medical Summary | Continuity of Care Document ---
Author Name Unknown Organization [facility] [address] [address] [place] [id number] Care Team Providers Care Worm Grower Name Role Phone Brianna Cornell Primary Care Physician [phone] Encounter [facility] [id number] Date(s): 09/16/23 - 09/16/[address] [facility] [address] [address] [phone] Encounter Diagnosis Body mass index [BMI] 28.0-28.9, adult(Discharge Diagnosis) - 09/16/23 Ankle pain(Discharge Diagnosis) - 09/16/23 Discharge Disposition: Home or Self Care Attending Physician: MD Yeh Christopher Allergies, Adverse Reactions, Alerts Substance Reaction Severity Status erythromycin Active penicillins Active Keflex unknown Active Rocephin rash Active bananas Vomiting Active cefTRIAXone hives Active Assessment and Plan Extracted from: Title:Office Visit Note Author:MD Saida, C dede Date:09/16/23 Ankle pain Subacute, stable, Patient's injury occurred 3 1/2 weeks ago and today he presents with mild/moderate pain (3/10), but no swelling, no erythema, no restricted ROM upon dorsiflexion, plantar flexion, eversion, inversion, and 5/5 strength upon both dorsiflexion and plantar flexion in that right ankle. Upon palpation the pain is observed to be primarily in the anterior portion of the ankle, at height of the malleolus. No foot pain upon palpation. Patient encouraged to take Tylenol for the pain, continued to use ice treatments as needed to help loosen it up in the mornings, and use heat treatment/heating pad to help treat area symptomatically. Patient also encouraged to resume activity as tolerated to continue to get blood flow to area, help healing process, while avoiding activity that could put undue stress on the ankle. Discouraged from using NSAIDs on a daily basis since he is on Eliquis to manage the pain. 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 Encouraged to call for F/U if pain doesn't improve within a month. Immunizations Given and Recorded Vaccine Date Status [...] information-source unspecified 2Result Comment: [10/01/2015] Got at [facility] Medications Advair Diskus 500 mcg-50 mcg Start: 08/26/22 9:44:00 EDT, See Instructions, Disp# 60 blister, Refills: 5, inhale 1 dose by mouthtwice a day, Pharmacy: [facility] #[id number] Start Date: 08/26/22 Status: Ordered albuterol 90 mcg/inh inhalation powder Start: 01/19/23 13:51:00 EST, 1 Unknown, Unknown, 1 inh INH as needed; Start Date: 01/19/23 Status: Ordered albuterol CFC free 90 mcg/inh MDI Start: 11/21/22 8:38:00 EST, 4 puff, inhaled, qid, Disp# 2 each, Refills: 3, PRN: as needed for wheezing, Pharmacy: [facility] #[id number] Start Date: 11/21/22 Stop Date: 03/21/23 Status: [...] day if needed for muscle spasm, [facility]acy: [facility] #[id number] Start Date: 09/03/23 Status: Ordered diazePAM 5 mg oral tablet Start: 09/03/23 18:12:00 EDT, 1 tab, PO, qhs, Disp# 30 tab, Refills: 0, Note to Pharmacy: PDMP verified, PRN: sleep, Pharmacy: [facility] #[id number] Start Date: 09/03/23 Status: Ordered Efudex 5% topical cream Start: 05/28/23 16:09:00 EDT, 1 appl, topical, bid, Disp# 40 g, Refills: 0, apply to face for 4 weeks and then stop, Pharmacy: [facility] #[id number] Start Date: 05/28/23 Status: Ordered Eliquis 5 [...] each nostril once daily, Pharmacy: [facility] #[id number] Start Date: 03/03/23 Status: Ordered inhaler spacer Start: 02/01/18 14:25:00, See Instructions, Disp# 1 each, UD, Pharmacy: [facility] Start Date: 02/01/18 Status: Ordered Mag-SR with Calcium Start: 05/28/23 15:39:00 EDT, Daily Start Date: 05/28/23 Status: Ordered melatonin 5 mg oral tablet Start: 08/13/18 16:26:00 EDT, 1 tab, PO, qhs, PRN: Insomnia Start Date: 08/13/18 Status: Ordered montelukast 10 mg oral tablet Start: 09/07/23 20:30:00 EDT, 1 tab, PO, qPM, Disp# 90 tab, Refills: 0, [facility]acy[facility] #[id number] Start Date: 09/07/23 Status: Ordered Multiple Vitamins oral tablet Start: 09/26/13 14:39:00, 1 tab, PO, Daily Start Date: 09/26/13 Status: Ordered Potassium Chloride (Eqv-K-Tab) 10 mEq oral tablet, extended release Start: 12/29/22 11:07:00 EST, 1 tab, PO, Daily, Disp# 30 tab, Refills: 2, Pharmacy: [facility] #[id number] Start Date: 12/29/22 Stop Date: 03/29/23 Status: Ordered Vitamin C 500 mg oral tablet Start: 09/26/13 14:39:00, 1 tab, PO, Daily Start Date: 09/26/13 Status: Ordered Vitamin D3 2000 intl units oral tablet Start: 06/04/15 9:06:00, 1 tab, PO, Daily Start Date: 06/04/15 Status: Ordered Mental Status 09/16/23 Barriers to Learning one year None evide nt Mandatory Health Literacy Documentation Yes Health Literacy Communication Barriers N ever Primary Language Russian Problem List Condition Confirmation Course Effective Dates [...] Dates Health Status Cl inical Service Informant Body mass index [BMI] 28.0-28.9, adult Discharge Diagnosis 09/16/23 Non-Specified Ankle pain Discharge Diagnosis 09/16/23 Non-Specified Procedures Procedure Date Related Diagnosis Body [...] Most recent to oldest [Reference Range]: 1 Height 190.8 cm (09/16/23 8:07 AM) Patient Weight 103.6 kg (09/16/23 8:07 AM) Body Mass Index 28.46 kg/m2 (09/16/23 8:07 AM) Temperature [36.5-37.9 DegC] 36.7 DegC (09/16/23 8:07 AM) Respiratory Rate 20 br/min (09/16/23 8:07 AM) Blood Pressure 120/84mmHg (09/16/23 8:07 AM) Cuff Pulse Pressure 36 mmHg (09/16/23 8:07 AM) BP Location # 1 Left Arm (09/16/23 8:07 AM) Social History Social History Type Response Smoking Status Never smoked cigaret asuncion Sex FCM Outpt Note * MD Yeh Christopher: MODIFY MD Yeh Christopher: MODIFY Event Display: FCM Outpt Note Authored Date: [id number] Chief Complaint Pt here for f/u on his ER visit for rt ankle pain. Was seen at Ortho and had fluid removed. History of Present Illness Patient is a 57 yo M w/ a PMHx of HTN, HFrEF, insomnia, recurrent pneumonia, persistent AFib, severe persistent asthma, insomnia who presents today for a F/U appt after being seen in the [facility] ED for right ankle pain and effusion on 09/06/23. Since discharge he has seen an park interpretive specialist, , on09/08/23 who aspirated the joint and found evidence of blood but no evidence of crystals (due to gout or pseudogout). - Xrays of r. foot and ankle neg at [facility], 09/06/23 - pt on 5 mg Eliquis, PO, BID -pt describes pain as 3/10 but he's not taking anything for it - been about 3 1/2 wks since initial "trauma" when walking dog -rec'd flu vaccine; reccommended and pt willing to take COVID19 vacc - pt will see Lorenzo next week to follow up with cardiac issues (HFrEF) Physical Exam Vitals & Measurements T:36.7C RR:20 BP:120/84 SpO2:99% HT:190.8cm WT:103.600kg(Dosing) WT:103.6kg BMI:28.46 PHQ2 Data(Data Documented on:09/16/2023 08:05) Emotional health assessment NEGATIVE ANKLE,_Noproximal fibular tenderness.Nomedial or lateral malleolus tenderness.Notenderness to palpation along the Lisfranc joint or the base of the fifth metatarsal. Painless and fulldorsiflexion, plantarflexion, inversion and eversion, but pain associated with dorsiflexion and plantar flexion.Negativesqueeze test. General: _Alert and oriented, No acute distress HEENT: Normocephalic Cardiovascular:Normal rate, Regular rhythm, No murmur, No gallop. Respiratory:Lungs are clear to auscultation, Respirations are non-labored, Breath sounds are equal Gastrointestinal:Soft, Non-tender, Non-distended, Normal bowel sounds. Musculoskeletal: Normal range of motion,normal strength. Assessment/Plan Ankle pain Subacute, stable, Patient's injury occurred 3 1/2 weeks ago and today he presents with mild/moderate pain (3/10), butno swelling, no erythema, no restricted ROM upon dorsiflexion, plantar flexion, eversion, inversion, and 5/5 strength upon both dorsiflexion and plantar flexion in that right ankle. Upon palpation the pain is observed to be primarily in the anterior portion of the ankle, at height of the malleolus.No foot pain upon palpation. Patient encouraged to take Tylenol for the pain, continued to use ice treatments as needed to help loosen it up in the mornings, and use heat treatment/heating pad to help treat area symptomatically.Patient also encouraged to resume activity as tolerated to continue to get blood flow to area, helphealing process, while avoiding activity that could put undue stress on the ankle. Discouraged fromusing NSAIDs on a daily basis since he is on Eliquis to manage the pain. 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 Encouraged to call for F/U if pain doesn't improve within a month. Attestation Pt seen and examined in concert with Dr. Cintron, agree with history and physical as documented above. Plan reviewed in detail. Any corrections or additions are noted here - ankle pain following mild inversion injury while wlaking the dog (but 1 wk following) with ongoing mild pain that is improving following tap with ortho. Counseling reviewed re: potential etiology and management including conservative measures and support as well as precautions for nonresolving f/u. NSAID avoidance in thesetting of chronic AC reviewed in detail and encourage APAP for pain control if needed. Problem List/Past Medical History Ongoing AIVR (accelerated idioventricular rhythm) AK (actinic keratosis) Benign hypertension Cardiomegaly Effusion, right ankle HFrEF (heart failure with reduced ejection fraction) History of recurrent pneumonia Insomnia Persistent atrial fibrillation Right ankle pain Severe persistent asthma Tobacco user Witnessed apneic spells Historical Adhesive capsulitis of [...] cyclobenzaprine(cyclobenzaprine 10 mg oral tablet), See Instructions dapagliflozin(Farxiga 10 mg oral tablet), 10 mg= 1 tab, PO, Daily diazePAM(diazePAM 5 mg oral tablet), 5 mg= 1 tab, PO, qhs, PRN famotidine(famotidine 20 mg oral tablet), 20 mg= 1 tab, PO, Daily fexofenadine(Alina 24 Hour Allergy oral tablet) fluorouracil topical(Efudex 5% topical cream), 1 appl, topical, bid fluticasone nasal(fluticasone 50 mcg/inh nasal spray), See Instructions, 2 refills fluticasone-salmeterol(Advair Diskus 500 mcg-50 mcg), See Instructions, 5 refills inhalation accessory(inhaler spacer), See Instructions melatonin(melatonin 5 mg oral tablet), 5 mg= 1 tab, PO, qhs, PRN montelukast(montelukast 10 mg oral tablet), 1 tab, PO, qPM multivitamin(Multiple Vitamins oral tablet), 1 tab, PO, Daily multivitamin with minerals(Calcium and Magnesium oral tablet), 1 tab, PO, qhs multivitamin with minerals(Mag-SR with Calcium), Daily potassium chloride(Potassium Chloride (Eqv-K-Tab) 10 mEq oral tablet, extended release), 10 mEq= 1 tab, PO, Daily, 2 refills sacubitril-valsartan(Entresto 97 mg-103 mg oral tablet), 1 tab, PO, bid Allergies Keflexunknown Rocephinrash bananasVomiting cefTRIAXonehives erythromycin penicillins Social History Smoking Status Never smoked cigarettes Employment/School Status:Employed Description:[employer] Exercise Times per week:5-6 times/week Exercise type:Walking [...] due05/23/23and every 1year Due Adult COVID-19 Vaccination due09/16/23Unknown Frequency Adult Tdap/Td Vaccine due09/16/23Unknown Frequency Hepatitis C Screening due09/16/23One-time only Pneumococcal Vaccine Adults and Adolescents with Chronic Illness due09/16/23One-time only Shingles Vaccine due09/16/23One-time only Due In Future Body Mass Index not due until09/15/24and every 1year Satisfied(in the past 1 year) Satisfied Body Mass Index on09/16/23.Satisfied by BAYLEE Zarco Paula Electronic Signature on File Electronically Reviewed/Signed by: Gopi Cintron MD Author Signature Dt/Tm:09/16/2023 09:39 AM Resident Department of Family Medicine Electronically Reviewed/Signed by: Gopi Yeh MD Cosigner Signature Dt/Tm: 09/16/2023 11:05AM Department of Family Medicine CM Patient Care team information Care Team Personnel Name: Nina Ibrahim Position: HIS Supervisor_P Member Role: HIS Lifetime Name: DO Cornell Alonna Paige Position: Resident Member Role: Primary Care Provider Address: Address: [facility] [address] [place] [address] [place] Care Team Related Persons Name: JAE PERALTA Address: [place] Address: home [address] [place], [place] [phone] Name: UMA PERALTA Address: [place] Address: home [address] [place], [id number] Name: MIGEL PERALTA Address: [place] Address: home [address] [place], [place] [phone] Name: CESAR PERALTA Address: home [address] [place], [place] [phone] Name: CESAR PERALTA Address: [place] Address: home [address] [place], [place] [phone]
--- OUTSIDE RECORDS SUMMARY | 2023-10-27 09:55 | External Medical Summary | Continuity of Care Document ---
Author Name Unknown Organization [address] Address [address] [place] [phone] Care Team Providers Care Costume Technician Name Role Phone Brianna Cornell Primary Care Physician [phone] Encounter PSYCHIATRIC MARYR [id number] Date(s): 09/08/23 - 09/08/23 [place] [id number] [place] [id number] [facility] Medicine [address] [place], [place] [id number] Encounter Diagnosis Right ankle pain(Discharge Diagnosis) - 09/08/23 Effusion, right ankle(Discharge Diagnosis) - 09/08/23 Discharge Disposition: Home or Self Care Attending Physician: MD Dylan, Roge Aguirre Allergies, Adverse Reactions, Alerts Substance Reaction Severity Status erythromycin Active penicillins Active Keflex unknown Active Rocephin rash Active cefTRIAXone hives Active Assessment and Plan Extracted from: Title:Orthopaedics Office Visit Note Author:Ángel baig MD, Roge Aguirre Date:09/08/23 1.Right ankle pain 2.Effusion, right ankle Differential and treatment options were discussed with thepatient. He has done some reading ongout and is notthink thatthis fits what he iscurrently experiencing. His diet has been much improved sinceFebruary of this year. He denies any personal orfamily history of gout. On evaluation of his x-rays there are some degenerative changesnoted. His joint effusioncould be coming from joint irritation or possibly a loosebody. For diagnostic andless so therapeuticoptions, I suggested that we aspirate the right ankleand check the fluid forcrystals. He is agreeable with this plan. Verbal consent was obtained and a timeout procedure was performed per [facility] protocol. Site of injection was confirmed and the patient wascorrectly identified. I was assisted with this procedure byFabiana Elizabeth LPN. The anterior aspect of theright ankle was prepped in a sterile manner with ChloraPrep skin prep and sterile ultrasound gel was used for the procedure. Taking care to avoid the dorsalis pedis artery andanterior ankletendons, andout of plane approachwas used for the aspiration. The injectionpath andjoint was anesthetized with3 cc ofa solution containing 2 cc of 1% lidocaine without epinephrine and 1 cc ofropivacaine 0.5%. After anesthesia was achieved,an 18-gauge needle was advanced into the jointand approximately7 cc ofbloody fluid was obtained. The needle was withdrawn, the anterior ankle was cleaned, and a Band-Aid was applied. Conner tolerated theprocedure well. Fluid will be sent to the lab for analysis, he will be notifiedwith the results of thisanalysis. If there is no evidence of crystals and he is still having anklepain we could consider further imaging of theankle. Immunizations Given and Recorded Vaccine Date Status [...] information-source unspecified 2Result Comment: [10/01/2015] Got at [facility] Medications Advair Diskus 500 mcg-50 mcg Start: 08/26/22 9:44:00 EDT, See Instructions, Disp# 60 blister, Refills: 5, inhale 1 dose by mouthtwice a day, Pharmacy: [facility] #[id number] Start Date: 08/26/22 Status: Ordered albuterol 90 mcg/inh inhalation powder Start: 01/19/23 13:51:00 EST, 1 Unknown, Unknown, 1 inh INH as needed; Start Date: 01/19/23 Status: Ordered albuterol CFC free 90 mcg/inh MDI Start: 11/21/22 8:38:00 EST, 4 puff, inhaled, qid, Disp# 2 each, Refills: 3, PRN: as needed for wheezing, Pharmacy: [facility] #[id number] Start Date: 11/21/22 Stop Date: 03/21/23 Status: [...] day if needed for muscle spasm, Pharmacy: [facility] #[id number] Start Date: 09/03/23 Status: Ordered diazePAM 5 mg oral tablet Start: 09/03/23 18:12:00 EDT, 1 tab, PO, qhs, Disp# 30 tab, Refills: 0, Note to Pharmacy: PDMP verified, PRN: sleep, Pharmacy: [facility] #[id number] Start Date: 09/03/23 Status: Ordered Efudex 5% topical cream Start: 05/28/23 16:09:00 EDT, 1 appl, topical, bid, Disp# 40 g, Refills: 0, apply to face for 4 weeks and then stop, Pharmacy: [facility] #[id number] Start Date: 05/28/23 Status: Ordered Eliquis 5 [...] each nostril once daily, [facility]acy: [facility] #[id number] Start Date: 03/03/23 Status: Ordered furosemide 20 mg oral tablet Start: 12/25/22 14:17:00 EST, 1 tab, PO, Daily Start Date: 12/25/22 Status: Ordered inhaler spacer Start: 02/01/18 14:25:00, See Instructions, Disp# 1 each, UD, [facility]acy[id number] Start Date: 02/01/18 Status: Ordered Mag-SR with Calcium Start: 05/28/23 15:39:00 EDT, Daily Start Date: 05/28/23 Status: Ordered melatonin 5 mg oral tablet Start: 08/13/18 16:26:00 EDT, 1 tab, PO, qhs, PRN: Insomnia Start Date: 08/13/18 Status: Ordered montelukast 10 mg oral tablet Start: 09/07/23 20:30:00 EDT, 1 tab, PO, qPM, Disp# 90 tab, Refills: 0, [facility]acy: [facility] #[id number] Start Date: 09/07/23 Status: Ordered Multiple Vitamins oral tablet Start: 09/26/13 14:39:00, 1 tab, PO, Daily Start Date: 09/26/13 Status: Ordered naproxen 500 mg oral tablet Start: 09/24/22 10:43:00 EDT, 1 tab, PO, bid, Disp# 60 tab, PRN: as needed for pain, Pharmacy: [facility] #[id number] Start Date: 09/24/22 Stop Date: 10/24/22 Status: Ordered Potassium Chloride (Eqv-K-Tab) 10 mEq oral tablet, extended release Start: 12/29/22 11:07:00 EST, 1 tab, PO, Daily, Disp# 30 tab, Refills: 2, [facility]acy: [facility] #[id number] Start Date: 12/29/22 Stop Date: 03/29/23 Status: [...] Start Date: 06/04/15 Status: Ordered Mental Status 09/08/23 Barriers to Learning one year None evide nt Mandatory Health Literacy Documentation Yes Health Literacy Communication Barriers N ever Primary Language Romanian Problem List Condition Confirmation Course Effective Dates Status H ealth Status Informant AIVR (accelerated idioventricular rhythm) Confirmed Active Right ankle pain Confirmed Active [...] Dates Health Status Cl inical Service Informant Right ankle pain Discharge Diagnosis 09/08/23 Effusion, right ankle Discharge Diagnosis 09/08/23 Procedures Procedure Date Related Diagnosis Body Site [...] (brother with CRC at age 52). 13Nose Results Most recent to oldest [Reference Range]: 1 2 Site, fld-QST RIGHT ANKLE 1 (09/08/23 2:22 PM) RIGHT ANKLE 2 (09/08/23 2:22 PM) Color, Fld-Quest [STRAW/YELLOW] RED 3 *A* (09/08/23 2:22 PM) Appearance, [facility]Quest [CLEAR/HAZY] BLOOD Y 4 *A* (09/08/23 2:22 PM) Nuc Cell, Fld-Quest [<150 cells/uL] 500 cells/uL 5 *HI* (09/08/23 2:22 PM) Neutrophils, Fld[facility]Quest [0-24 %] 10 % 6 (09/08/23 2:22 PM) Lympho, Fld[facility]Quest [0-74 %] 72 % 7 (09/08/23 2:22 PM) Concho/Mac, Fld-Quest [0-69 %] 15 % 8 (09/08/23 2:22 PM) EOS, Fld-Quest [0-2 %] 3 % 9 *HI* (09/08/23 2:22 PM) Baso, Fld[facility]Quest [0 %] 0 % 10 (09/08/23 2:22 PM) Synoviocytes, Fld-Quest [0-15 %] 0 % 11 (09/08/23 2:22 PM) Crystals, Synovial fld-Quest [NONE SEEN /HPF] SEE COMMENT /HPF 12 (09/08/23 2:22 PM) 1Result Comment: Specimen Received d/t: 09/09/2023 03:59:00 Lab test performed by: [facility] [address] [place] [address] Rudi Bruno MD 2Result Comment: Specimen Received d/t: 09/09/2023 03:59:00 Lab test performed by: [facility] [address] [place] [address]Merari Bruno MD 3Result Comment: Specimen Received d/t: 09/09/2023 03:59:00 Lab test performed by: [facility] [address] [place] [address]Merari Bruno MD 4Result Comment: Specimen Received d/t: 09/09/2023 03:59:00 Lab test performed by: [facility] [address] [place] [address]Merari Bruno MD 5Result Comment: Specimen Received d/t: 09/09/2023 03:59:00 Lab test performed by: [facility] [address] [place], [place] Orlin Bruno MD 6Result Comment: Specimen Received d/t: 09/09/2023 03:59:00 Lab test performed by: [facility] [address] [place], [place] Orlin Bruno MD 7Result Comment: Specimen Received d/t: 09/09/2023 03:59:00 Lab test performed by: [facility] [address] [place], [place] Orlin Bruno MD 8Result Comment: Specimen Received d/t: 09/09/2023 03:59:00 Lab test performed by: [facility] [address] [place], [place] Orlin Bruno MD 9Result Comment: Specimen Received d/t: 09/09/2023 03:59:00 Lab test performed by: [facility] [address] [place] [address]Dianna Bruno MD 10Result Comment: Specimen Received d/t: 09/09/2023 03:59:00 Lab test performed by: [facility] [address] [place], [place] Orlin Bruno MD 11Result Comment: Specimen Received d/t: 09/09/2023 03:59:00 Lab test performed by: [facility] [address] [place], [place] Orlin Bruno MD 12Result Comment: None seen Specimen Received d/t: 09/09/2023 03:59:00 Lab test performed by: [facility] [address] [place] [address]Chava Bruno MD Vital Signs Most recent to oldest [Reference Range]: 1 Height 190.8 cm (09/08/23 1:31 PM) Patient Weight 102.2 kg (09/08/23 1:31 PM) Body Mass Index 28.07 kg/m2 (09/08/23 1:31 PM) Social History Social History Type Response Smoking Status Never smoked cigaret asuncion Sex Ortho Outpt Note * MD Dylan, Roge Aguirre: PERFORM, MODIFY Event Display: Ortho Outpt Note Authored Date: [id number] Primary Care Provider DO Cornell Alonna Paige Chief Complaint Injured right ankle about 2 weeks ago when he rolled it. Walked it off and felt ok. This weekend itflared and swelled. went to ED History of Present Illness Conner is a [id number] seen for evaluation of right ankle painas above. He was walkinghisdog in a field near his housewhen herolled the ankle, but did not think much of it. His symptoms graduallyimproved, however about a weeklater he noticed increasedpain and swellingprompting him to go to the emergency roomon the morning of09/06. He had x-rays of the foot and ankle performed there which were negative. He has had gradually improvingpain since thattime but has noticed persistent stiffnessin the ankle. He did not have anyredness or warmth of theankleat any timefor the past 2 weeks. He denies any prior history ofgout, however this was brought up as a possible diagnosis when he was in the emergency room. He denies any prior history of significantright ankle injury. His recent past medical history and current medications have been reviewed, as there has been several changessince December of this year. Physical Exam Vitals & Measurements HT:190.8cm WT:102.2kg WT:102.200kg(Dosing) BMI:28.07 General: Appears well, ambulatingslowly but comfortably. Right ankle: Trace lower extremityswelling and fullness to palpation of theright ankle. He lacks about 10 degrees of dorsiflexion and plantarflexion when compared to theleft and feels limitedininversion andeversion. Pain- free and full strength with resisted dorsiflexion, plantarflexion, inversion, andeversion. No redness or warmthnoted. Dependent bruising is noted at the toes. Diagnostic Results A limited musculoskeletal ultrasound evaluation of theright anterior ankle isperformed. Amoderatetibiotalar joint effusion is appreciated. Images of theevaluation and procedure [facility]. Assessment/Plan 1.Right ankle pain 2.Effusion, right ankle Differential and treatment options were discussed with thepatient. He has done some reading ongout and is notthink thatthis fits what he iscurrently experiencing. His diet has been muchimproved sinceFebruary of this year. He denies any personal orfamily history of gout. On evaluation of his x-rays there are some degenerative changesnoted. His joint effusioncouldbe coming from joint irritation or possibly a loosebody. For diagnostic andless so therapeuticoptions, I suggested that we aspirate the right ankleand check the fluid forcrystals. He is agreeable with this plan. Verbal consent was obtained and a timeout procedure was performed per [facility] protocol. Site of injection was confirmed and the patient wascorrectly identified. I was assisted with this procedure byFabiana Elizabeth LPN. The anterior aspect of theright ankle was prepped in a sterile manner with ChloraPrep skin prep and sterile ultrasound gel was used for the procedure. Takingcare to avoid the dorsalis pedis artery andanterior ankletendons, andout of plane approachwas used for the aspiration. The injectionpath andjoint was anesthetized with3 cc ofa solution containing 2 cc of 1% lidocaine without epinephrine and 1 cc ofropivacaine 0.5%. After anesthesia was achieved,an 18-gauge needle was advanced into the jointand approximately7 cc ofbloody fluid was obtained. The needle was withdrawn, the anterior ankle was cleaned, and a Band-Aid was applied. Conner tolerated theprocedure well. Fluid will be sent to the lab for analysis, he will be notifiedwith the results of thisanalysis. If there is no evidence of crystals and he is still having anklepain we could consider furtherimaging of theankle. 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 Exercise Times per week:5-6 times/week Exercise type:Walking [...] due05/23/23and every 1year Due Adult COVID-19 Vaccination due09/08/23Unknown Frequency Adult Tdap/Td Vaccine due09/08/23Unknown Frequency Hepatitis C Screening due09/08/23One-time only Pneumococcal Vaccine Adults and Adolescents with Chronic Illness due09/08/23One-time only Shingles Vaccine due09/08/23One-time only Due In Future Body Mass Index not due until09/07/24and every 1year Satisfied(in the past 1 year) Satisfied Body Mass Index on09/08/23.Satisfied by COLLEEN Elizabeth Bonita Electronic Signature on File Electronically Reviewed/Signed by: Roge Richardson MD Author Signature Dt/Tm:09/08/2023 04:34 PM Division of Sports Medicine [facility] Patient Care team information Care Team Personnel Name: Patrice Nina Position: HIS Supervisor_P Member Role: HIS Lifetime Name: DO Cornell Alonna Paige Position: Resident Member Role: Primary Care Provider Address: Address: [address] [place] [address] Care Team Related Persons Name: JAE PERALTA Address: [place] Address: home [address] [place] [phone] Name: UMA PERALTA Address: [place] Address: home [address] [place], [phone] Name: MIGEL PERALTA Address: [place] Address: home [address] [place], [place] [phone] Name: CESAR PERALTA Address: home [address] [place], [place] [phone] Name: CESAR PERALTA Address: [place] Address: home [address] [place] [phone]
[2023-10-27 09:56] LABS: INR 1.1 (0.9-1.1); Prothrombin Time 11.6 Seconds (9.0-12.0)
--- NOTE | 2023-10-27 09:56 | XRay Report ---
XR chest 1V portable HISTORY: Shortness of breath. Atypical chest pain. COMPARISON: Chest 01/05/2023. FINDINGS: No pneumothorax. No pleural effusions. The heart remains enlarged. No focal lung consolidat ions to suggest a pneumonia. No evidence for pulmonary edema. No acute fractures identified. IMPRESSION: Stable cardiomegaly. Otherwise, no acute process within the chest. ACT 112: Negative or not required by law. Electronically signed by: Adrian Willis M.D. 10/27/2023 9:55 AM
[2023-10-27] MEDS ORDERED: METOPROLOL TARTRATE 1 MG/ML VIAL IV STA (09:58)
[2023-10-27 10:01] LABS: Thyroid Stimulating Hormone 2.614 uIu/ml (0.300-4.500)
[2023-10-27] MEDS ORDERED: FAMOTIDINE 20MG IV PUSH 20 MG/5 ML SYR IV STA (10:04)
[2023-10-27] MEDS ORDERED: ONDANSETRON INJ 2 MG/ML 2 ML VIAL IV STA (10:04)
[2023-10-27] MEDS ORDERED: SODIUM CHLORIDE 0.9% 500 ML IV ONE ×2 (10:36→13:29)
[2023-10-27] MEDS ORDERED: carvediloL 25 MG TAB PO ONE (10:46)
[2023-10-27 10:52] LABS: Adenovirus PCR Not Detected (NotDetected); Bordetella parapertussis PCR Not Detected (NotDetected); Bordetella pertussis PCR Not Detected (NotDetected); Chlamydia pneumoniae PCR Not Detected (NotDetected); Coronavirus 229E PCR Not Detected (NotDetected); Coronavirus HKU1 PCR Not Detected (NotDetected); Coronavirus NL63 PCR Not Detected (NotDetected); Coronavirus OC43PCR Not Detected (NotDetected); Human Metapneumovirus PCR Not Detected (NotDetected); Influenza A PCR Not Detected (NotDetected); Influenza B PCR Not Detected (NotDetected); Mycoplasma pneumoniae PCR Not Detected (NotDetected); Parainfluenza Virus 1 PCR Not Detected (NotDetected); Parainfluenza Virus 2 PCR Not Detected (NotDetected); Parainfluenza Virus 3 PCR Not Detected (NotDetected); Parainfluenza Virus 4 PCR Not Detected (NotDetected); Respiratory Syncytial VirusPCR Not Detected (NotDetected); Rhinovirus/Enterovirus PCR Not Detected (NotDetected)
[2023-10-27 11:01] LABS: Coronavirus CoV-2 (COVID19)PCR DETECTED (NotDetected)
[2023-10-27] MEDS ORDERED: MONTELUKAST SODIUM 10 MG TABLET PO ONE (12:39)
[2023-10-27] MEDS ORDERED: METOPROLOL SUCC 50MG EXT REL TAB PO STA (12:56)
[2023-10-27] MEDS ORDERED: diphenhydrAMINE 50 MG/ML VIAL IV STA (14:40)
[2023-10-27] MEDS ORDERED: PROCHLORPERAZINE 1 ML IV ONE (14:40)
--- NOTE | 2023-10-27 15:02 | Electrocardiogram Report ---
Test Reason : Blood Pressure : / mmHG Vent. Rate : 129 BPM Atrial Rate : 000 BPM P-R Int : 000 ms QRS Dur : 100 ms QT Int : 342 ms P-R-T Axes : 000 -31 015 degrees QTc Int : 501 ms Atrial fibrillation with rapid ventricular response with premature ventricular or aberrantly conducte d complexes Left axis deviation Inferior infarct (cited on or before 07-JAN-2023) Possible Anterior infarct , age undetermined Abnormal ECG When compared with ECG of 22-SEP-2023 11:19, (unconfirmed) Nonspecific T wave abnormality now evident in Anterior leads Confirmed by Jhonny Vega ([id number]) on 10/27/2023 3:02:09 PM Referred By: REFERRED SELF Confirmed By:Jhonny Vega
--- NOTE | 2023-10-27 15:33 | CT Scan Report ---
CT head/brain wo con CLINICAL HISTORY: headache Technique: Contiguous axial CT images of the head were acquired from the base of the skull to the tutu vida without intravenous contrast administration. Images were viewed in brain, [facility]ural and bone [facility]. Automated dose lowering techniques and/or adjustment according to patient size were utilized for this exam. Comparison: Comparison is made to CT head 01/30/2023 Findings: The ventricles, basal cisterns, and cerebral sulci are normal. There is no acute intracranial hemorrh age or evidence of acute territorial infarction. Neither mass effect, shift of the midline structures , nor abnormal extra-axial fluid collections are shown. Imaged portions of the paranasal sinuses and mastoid air cells are clear. The orbits appear normal. There are no acute fractures of the calvaria or scalp swelling. Impression: No acute intracranial hemorrhage, no evidence of acute territorial infarction or other acute intracra nial disease process. ACT 112: Negative or not required by law. Electronically signed by: Elkin Moran M.D. 10/27/2023 3:32 PM
--- NOTE | 2023-10-27 15:49 | History & Physical Report ---
Date of Service October 27, 2023 Assessment & Plan (1) Atrial fibrillation with rapid ventricular response: Plan: Patient with known history of atrial fibrillation. Was previously successfully cardioverted which lasted about 7 months. On carvedilol 25 mg and Eliquis at home. Recently metoprolol was added to his regimen - has not taken any doses yet. ED physician spoke to cards oncology specialist - Dr. Vega recommended starting metoprolol as outlined by Neptali Dang PA-C. No significant improvement in rate control. Follow up rec - Dig load. Will formally consult cardiology - appreciate recs. This is likely reactive in the setting of acute Covid-19 infection. Cards on board Digoxin load - 0.25 mg IV x2 - 4 hours apart Consider cardioversion Continuous cardiac monitoring (2) COVID-19: Plan: This is all likely in the setting of acute Covid-19 infection. Patient may benefit from Paxlovid administration. [place] interaction aircraft delivery checker used. Will decrease Eliquis to 2.5 mg BID. Decreased Entresto to half dosing as there is a possibility of hypotension with concomitant use of Entresto and Paxlovid. Caution with diazepam. Switch to Breo Ellipta from Advair. Continue these modifications during Paxlovid use and for 3 days following. Otherwise continue with supportive care. Antiemetics as needed Tylenol 650 Q4H PRN Austyn barajas Will send paxlovid to outpatient pharmacy (3) Cardiomyopathy: Plan: Patient with history of non-ischemic cardiomyopathy. On GDMT - Entresto, dapagliflozin, furosemide, carvedilol. Recently added on metoprolol as patient was not adequately rate controlled. Last ECHO 08/15 - EF 30-35%, dilated cardiomyopathy. Adjust medications as above. Continue to monitor. (4) Restless leg syndrome: Plan: Stable on diazepam 5 mg QHS, cyclobenzaprine 10 mg, melatonin 5 mg QHS. Continue while inpatient. Caution with diazepam while taking Paxlovid. (5) Asthma: Plan: Patient stable on Advair, montelukast, and fluticasone nasal. Would need to hold Advair while taking Paxlovid. Would do Breo while taking Paxlovid. (6) Chest pain: (7) Dyspnea: Plan Code status: full DVT ppx: Eliquis 2.5 mg, ambulation FENGI: heart healthy Dispo: PCU History of Present Illness Chief Complaint: heart racing Primary Care Provider: Brianna Cornell DO 57 y/o male with a PMHx of HFrEF, asthma, a. fib, RLS, and difficulty sleeping here for evaluation of heart racing. Patient with intermittent bouts of elevated heart rates for the past few weeks. Patient was in contact with his mattress packer's office - Dr. Ventura sending him readings from his smart watch. Neptali Reis PA-C was in contact with patient and recommended started metoprolol. Patient has not yet started that medication as he picked it up yesterday. 10/26 patient began to feel unwell. Rapid covid test was negative at that time. Patient felt worse this morning - headache, sore throat, cough, chest pain, shortness of breath, nauseous, heart racing. He was brought by his to the ED. In the ED HDS with tachycardia - irregularly irregular. Afebrile without tachypnea. High sensitivity troponin negative, EKG consistent with a. fib with RVR, labs relatively unremarkable. Respiratory panel positive for Covid-19. CXR without acute findings CT Head without acute findings Dr. Cage discussed the case with Dr. Vega. Patient given metoprolol succinate 50 mg as this was the medication he was to start outpatient. In addition he was given 5 mg Lopressor IV without significant improvement in rate control. Next step would be dig load. Patient also nauseous with a headache - treated with Zofran, then treated with Tylenol, prochlorperazine, and Benadryl. Upon my interview, patient much more comfortable after being able to take a nap. Reports continued headache (improved to 4/10), cough, congestion, and sore throat. Nausea has much improved. Patient would like to eat something. No fevers or chills. Patient would be interested in Paxlovid if it is an option. Allergies Allergy/AdvReac Type Severity Reaction Status Date / Time ceftriaxone [From Rocephin] Allergy Intermediate Hives Verified 10/27/23 13:15 amoxicillin Allergy Unknown RX AN Verified 10/27/23 13:15 clavulanic acid Allergy Unknown RX AN Verified 10/27/23 13:15 erythromycin base Allergy Unknown REACTION Verified 10/27/23 13:15 TO PCN AND AUGMENTIN Penicillins Allergy Unknown REACTION Verified 10/27/23 13:15 AN INFANT - UNKNOWN Tetracyclines Allergy Unknown VOMITING Verified 10/27/23 13:15 AND RASH banana AdvReac Mild Vomiting Unverified 10/27/23 13:15 hydromorphone [From Dilaudid] AdvReac Mild Vomiting Verified 10/27/23 13:15 Home Medications Medication Instructions Recorded Confirmed Type albuterol sulfate 90 mcg/actuation 1 puffs inhalation .COMPLEX PRN 08/17/19 10/27/23 History breath activated powder inhaler Shortness Of Breath Or Wheezing ascorbate calcium (vitamin C) 500 500 mg PO DAILY 08/17/19 10/27/23 History mg tablet cholecalciferol (vitamin D3) 10 400 units PO DAILY 08/17/19 10/27/23 History mcg (400 unit) capsule cyclobenzaprine 10 mg tablet 10 mg PO HS #30 tabs 08/17/19 10/27/23 Rx montelukast 10 mg tablet 10 mg PO QAM 08/17/19 10/27/23 History diazepam 5 mg tablet 5 mg PO HS 09/03/22 10/27/23 History melatonin 5 mg capsule 5 mg PO HS 09/03/22 10/27/23 History calcium carb-Ca gluc 500 mg 3 tab PO DAILY 01/05/23 10/27/23 History calcium-magnesium ox-Mg gluc 250 mg tablet (Calcium Magnesium) multivitamin 1 tab PO DAILY 01/05/23 10/27/23 History apixaban 5 mg tablet (Eliquis) 5 mg PO BID #180 tabs 01/22/23 10/27/23 Rx famotidine 20 mg tablet (Pepcid) 20 mg PO BID 01/30/23 10/27/23 History furosemide 20 mg tablet (Lasix) 20 mg PO DAILY PRN Weight Gain 01/30/23 10/27/23 History fluticasone 500 mcg-salmeterol 50 1 inh inhalation BID 02/19/23 10/27/23 History mcg/dose blistr powdr for inhalation (Advair Diskus) sacubitril 97 mg-valsartan 103 mg 1 tab PO BID #180 tabs 03/10/23 10/27/23 Rx tablet (Entresto) dapagliflozin propanediol 10 mg 10 mg PO DAILY #30 tabs 08/19/23 10/27/23 Rx tablet (Farxiga) metoprolol succinate 50 mg 50 mg PO DAILY #90 tabs 10/23/23 10/27/23 Rx tablet,extended release 24 hr carvedilol 25 mg tablet 25 mg PO BID 10/27/23 10/27/23 History fluticasone propionate 50 1 spray intranasal DAILY 10/27/23 10/27/23 History mcg/actuation nasal spray,suspension Past Med/Surg History Medical History Anxiety 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 Atrial fibrillation s/p cardioversion 01/2023 [place]. on Eliquis. Follows with Dr. Rios. Zurita's palsy DX 01/30/23 *[facility] (CURRENTLY RX PREDNISONE FOR 5 DAYS) RT EYE CLOSED AND PARALYSIS RT SIDE CHF (congestive heart failure) Chronic dyspnea Diverticulosis GERD (gastroesophageal reflux disease) History of COVID-19 07/2022>DEVELOPED PNX AFTER COVID AND TREATED History of skin cancer NOSE AREA History of ventricular tachycardia Hypertension Migraine Restless leg syndrome Surgical History Family history of reaction to anesthesia MOTHER AND DAUGHTER>N/V History of arthroscopy LEFT KNEE History of cardioversion History of colonoscopy History of ear surgery ? 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 Feels Safe at Home: Yes Assistive Devices: Glasses Review of Systems 2 Review of Systems: See HPI Physical Exam 2 Physical Exam: Gen: non-toxic, but ill appearing male in NAD HEENT: AT NC, EOMI PERRL, photophobic, no conjunctival injection, no scleral icterus Resp: CTAB no wheezing no increased work of breathing CV: irregularly irregular, tachycardia, without murmurs or additional heart sounds, clinically well perfused, no lower extremity edema Abd: soft, non-distended, non-tender, +BS Skin: no rashes or bruising noted MSK: no obvious deformities Neuro: alert and oriented Psych: appropriate mood and affect Results & Data Results & Data Vital Signs (Past 12 Hours) Vital Signs Temp Pulse Pulse Resp BP BP Pulse Ox 10/27/23 14:00 126 H 19 140/105 H 96 10/27/23 13:03 132 H 10/27/23 12:10 121 H 19 150/94 H 98 10/27/23 10:30 125 H 21 96 10/27/23 10:27 101/86 10/27/23 10:27 133 H 13 93 10/27/23 10:24 126 H 10/27/23 10:00 140 H 18 95 10/27/23 09:30 124 H 19 97 10/27/23 09:04 133 H 10/27/23 09:02 133 H 25 H 97 10/27/23 09:01 137/102 H 10/27/23 08:45 36.7 C 98 H 18 160/106 H 99 O2 Del Method 10/27/23 14:00 Room Air 10/27/23 13:03 10/27/23 12:10 Room Air 10/27/23 10:30 10/27/23 10:27 10/27/23 10:27 10/27/23 10:24 10/27/23 10:00 10/27/23 09:30 10/27/23 09:04 10/27/23 09:02 10/27/23 09:01 10/27/23 08:45 Room Air Laboratory Results 10/27/23 08:57 10/27/23 08:57 Diagnostic Findings Chest X-Ray 10/27/23 09:06 FINDINGS: No pneumothorax. No pleural effusions. The heart remains enlarged. No focal lung consolidations to suggest a pneumonia. No evidence for pulmonary edema. No acute fractures identified. IMPRESSION: Stable cardiomegaly. Otherwise, no acute process within the chest. Head CT 10/27/23 15:12 Findings: The ventricles, basal cisterns, and cerebral sulci are normal. There is no acute intracranial hemorrhage or evidence of acute territorial infarction. Neither mass effect, shift of the midline structures, nor abnormal extra-axial fluid collections are shown. Imaged portions of the paranasal sinuses and mastoid air cells are clear. The orbits appear normal. There are no acute fractures of the calvaria or scalp swelling. Impression: No acute intracranial hemorrhage, no evidence of acute territorial infarction or other acute intracranial disease process. Supervising Physician Co-Signing Physician Notes I personally saw and examined the patient. I independently reviewed the labs, EKG, imaging, problem list, medication list, past medical history and family history. I verified all khalil points and agree with resident physician Dr Simran Wharton MD with the following exceptions and/or additions: 57 year old with paroxysmal atrial fibrillation. COVID-19 symptoms started today. Suspect this is making it difficult to get him back into NSR. Resident and ER provider discussed with cardiology for plan. Palpitations and shortness of breath on exertion when in atrial fibrillation previously. O/E A&Ox3, HS normal rate, irregular rhythm, no murmurs, Chest CTAB, Abdo SNT A/P A. fib RVR - improved over the course of the day with digoxin load. Will defer ongoing dosing to cardiology. Continue anticogulation. COVID-19 - Paxlovid with temporary medication changes due to interactions as above Resident Activity Tracking Resident Involvement: Resident Care Provided Care Provided: Adult Hospital Medicine (3) Cardiomyopathy Cardiomyopathy type: dilated Qualified Code(s): I42.0 - Dilated cardiomyopathy
[2023-10-27] MEDS ORDERED: POLYETHYLENE (MIRALAX) 17 GM PACK PO PRN (16:27)
[2023-10-27] MEDS ORDERED: IBUPROFEN 600 MG TAB PO PRN (16:39)
[2023-10-27] MEDS ORDERED: DIGOXIN 250 MCG in SYRINGE 9 ML IV ONE ×2 (17:00→21:20)
[2023-10-27] MEDS ORDERED: FUROSEMIDE 20 MG TAB PO PRN (18:54)
[2023-10-27] MEDS ORDERED: ALBUTEROL HFA 8 GM INHALER INH PRN (19:04)
[2023-10-27] MEDS ORDERED: diazePAM 5 MG TABLET PO SCH (21:00)
[2023-10-27] MEDS: VALSARTAN/SACUBITRIL 103/97MG TAB PO SCH (21:09)
[2023-10-27] MEDS: MELATONIN 3 MG TAB PO SCH (21:09)
[2023-10-27] MEDS: CYCLOBENZAPRINE HCL 10 MG TAB PO SCH (21:13)
[2023-10-27] MEDS: NIRMATRELVIR/RITONAVIR 1 EA TAB PO SCH (21:13)
[2023-10-27] MEDS: carvediloL 25 MG TAB PO SCH (21:14)
[2023-10-27] MEDS: BENZONATATE 100 MG CAPSULE PO SCH (21:14)
[2023-10-27] MEDS: FAMOTIDINE 20 MG TAB PO SCH (21:15)
[2023-10-27] MEDS: APIXABAN 2.5 MG TAB PO SCH (21:15)
[2023-10-28] MEDS ORDERED: [UNRECOGNIZED DRUG - REMARK] SCH
[2023-10-28] MEDS: ACETAMINOPHEN 325 MG TAB PO PRN ×4 (01:05→22:25)
[2023-10-28 03:45] LABS: Basophils # (auto) 0.01 K/uL (0.00-0.20); Basophils % (auto) 0.2 %; Eosinophils # (auto) 0.03 K/uL (0.00-0.50); Eosinophils % (auto) 0.5 %; Hematocrit (blood only) 44.6 % (42.0-52.0); Immature Granulocytes # (auto) 0.03 K/uL (0.01-0.20); Immature Granulocytes % (auto) 0.5 %; Lymphocytes # (auto) 0.66 K/uL (1.20-3.40); Lymphocytes % (auto) 10.3 %; Mean Corpuscular Hemoglobin 28.3 pg (25.0-34.0); Mean Corpuscular Hgb Conc 33.6 g/dL (32.0-36.0); Mean Corpuscular Volume 84.2 fL (80.0-100.0); Mean Platelet Volume 10.9 fL (9.4-12.4); Monocytes # (auto) 0.82 K/uL (0.11-0.59); Monocytes % (auto) 12.8 %; Neutrophils # (auto) 4.86 K/uL (1.40-6.50); Neutrophils % (auto) 75.7 %; Platelet Count 143 K/uL (130-400); RDW Coefficient of Variation 13.4 % (11.5-14.5); RDW Standard Deviation 41.8 fL (36.4-46.3); White Blood Count 6.41 K/ul (4.8-10.8)
[2023-10-28 04:01] LABS: BUN Creatinine Ratio 12.1 (10-20); Calcium 8.4 mg/dl (8.6-10.3); Creatinine Clr Calc Pharmacy 101.6 ml/min; Est GFR (African American) 90.1 ml/min; Est GFR (Non-African American) 77.7 ml/min; Potassium 3.6 mmol/L (3.5-5.1)
[2023-10-28] MEDS: ONDANSETRON INJ 2 MG/ML 2 ML VIAL IV PRN ×2 (08:41→12:30)
[2023-10-28] MEDS: NIRMATRELVIR/RITONAVIR 1 EA TAB PO SCH ×2 (08:42→22:24)
[2023-10-28] MEDS: FAMOTIDINE 20 MG TAB PO SCH ×2 (08:42→22:38)
[2023-10-28] MEDS: VALSARTAN/SACUBITRIL 103/97MG TAB PO SCH ×2 (08:43→22:40)
[2023-10-28] MEDS: BENZONATATE 100 MG CAPSULE PO SCH ×3 (08:44→22:28)
[2023-10-28] MEDS: FLUTICASONE PROPIONATE NA SPR 16 GM BTL SCH (08:44)
[2023-10-28] MEDS: MONTELUKAST SODIUM 10 MG TABLET PO SCH (08:45)
[2023-10-28] MEDS: METOPROLOL SUCC 50MG EXT REL TAB PO SCH (08:45)
[2023-10-28] MEDS: carvediloL 25 MG TAB PO SCH ×2 (08:45→22:29)
[2023-10-28] MEDS: APIXABAN 2.5 MG TAB PO SCH ×2 (08:46→22:37)
[2023-10-28] MEDS: FLUTICASONE/VILANTEROL 100/25MCG 14 PUFFS/INHALER INH SCH (08:50)
[2023-10-28] MEDS ORDERED: FLUTICASONE/VILANTEROL 200/25MCG 14 PUFFS/INHALER INH SCH (09:00)
--- NOTE | 2023-10-28 09:21 | Billing Data ---
Date of Service October 27, 2023 Coding Level of Care Code 74410 INT INP/OBS CARE
--- NOTE | 2023-10-28 12:02 | Cardiology Consultation ---
Date of Consultation October 28, 2023 Assessment & Plan (1) Atrial fibrillation with rapid ventricular response: -ventricular response now well controlled with the addition of metoprolol succinate to his carvedilol. -he did receive intravenous digoxin last evening. -rapid ventricular response likely related to his COVID infection. -continue Eliquis (dose reduced secondary to Paxlovid). (2) COVID-19: -management per hospitalist team. -Eliquis and Entresto dose is reduced secondary to Paxlovid. (3) Nonischemic cardiomyopathy: -LVEF 30-35%, July 2023. -follows closely with Dr. Ventura as an outpatient. -continue carvedilol and Entresto. -Farxiga currently on hold. -continue Lasix on a p.r.n. basis. History of Present Illness Attending Physician: Torsten Rangel MD History of Present Illness Mr. Balbuena is a 57-year-old male admitted yesterday with the COVID infection and atrial fibrillation with a rapid ventricular response. This consultation was ordered to assist in his cardiac management. Of note, patient typically follows with Dr. Ventura in the outpatient setting. The patient was in his usual state of health until approximately 24 hours prior to presentation. He began to note fatigue, a headache, and low-grade fever. He checked a COVID test at home which was negative. He was noting some palpitations and checked his heart rate and EKG via his Apple watch. He noted atrial fibrillation with a rapid ventricular response approximately 140-150 beats per minute. He then proceeded to the emergency room for further care. The patient has longstanding history of paroxysmal atrial fibrillation. He underwent an elective cardioversion back in January. He remained in sinus rhythm until early September. He has been in atrial fibrillation since that time. The heart rates have been adequately controlled until lately. He also carries a history of a nonischemic cardiomyopathy. Most recent echocardiogram performed on August 15 noted ejection fraction of 30-35% with global hypokinesis. There was mild mitral regurgitation. Compared with the study performed in February 2023, no significant change. He continues on carvedilol and Entresto. Currently, patient is COVID symptoms are improving on Paxlovid. Ventricular response to atrial fibrillation now well controlled. Past medical and surgical history 1. Nonischemic cardiomyopathy 2. Chronic systolic CHF 3. History of an accelerated idioventricular rhythm 4. Paroxysmal atrial fibrillation 5. Frequent PVCs 6. Hypertension 7. Asthma 8. GERD 9. Diverticulitis 10. Migraine headaches 11. Restless leg syndrome 12. Anxiety 13. Vasectomy Social history and lives with his No tobacco alcohol Family history Noncontributory Review of systems A 10 point review of systems was undertaken and negative except that described above Allergies Allergy/AdvReac Type Severity Reaction Status Date / Time ceftriaxone [From Rocephin] Allergy Intermediate Hives Verified 10/27/23 13:15 amoxicillin Allergy Unknown RX AN Verified 10/27/23 13:15 clavulanic acid Allergy Unknown RX AN Verified 10/27/23 13:15 erythromycin base Allergy Unknown REACTION Verified 10/27/23 13:15 TO PCN AND AUGMENTIN Penicillins Allergy Unknown REACTION Verified 10/27/23 13:15 AN - UNKNOWN Tetracyclines Allergy Unknown VOMITING Verified 10/27/23 13:15 AND RASH banana AdvReac Mild Vomiting Unverified 10/27/23 13:15 hydromorphone [From Dilaudid] AdvReac Mild Vomiting Verified 10/27/23 13:15 Home Medications Medication Instructions Recorded Confirmed Type albuterol sulfate 90 mcg/actuation 1 puffs inhalation .COMPLEX PRN 08/17/19 10/27/23 History breath activated powder inhaler Shortness Of Breath Or Wheezing ascorbate calcium (vitamin C) 500 500 mg PO DAILY 08/17/19 10/27/23 History mg tablet cholecalciferol (vitamin D3) 10 400 units PO DAILY 08/17/19 10/27/23 History mcg (400 unit) capsule cyclobenzaprine 10 mg tablet 10 mg PO HS #30 tabs 08/17/19 10/27/23 Rx montelukast 10 mg tablet 10 mg PO QAM 08/17/19 10/27/23 History diazepam 5 mg tablet 5 mg PO HS 09/03/22 10/27/23 History melatonin 5 mg capsule 5 mg PO HS 09/03/22 10/27/23 History calcium carb-Ca gluc 500 mg 3 tab PO DAILY 01/05/23 10/27/23 History calcium-magnesium ox-Mg gluc 250 mg tablet (Calcium Magnesium) multivitamin 1 tab PO DAILY 01/05/23 10/27/23 History apixaban 5 mg tablet (Eliquis) 5 mg PO BID #180 tabs 01/22/23 10/27/23 Rx famotidine 20 mg tablet (Pepcid) 20 mg PO BID 01/30/23 10/27/23 History furosemide 20 mg tablet (Lasix) 20 mg PO DAILY PRN Weight Gain 01/30/23 10/27/23 History fluticasone 500 mcg-salmeterol 50 1 inh inhalation BID 02/19/23 10/27/23 History mcg/dose blistr powdr for inhalation (Advair Diskus) sacubitril 97 mg-valsartan 103 mg 1 tab PO BID #180 tabs 03/10/23 10/27/23 Rx tablet (Entresto) dapagliflozin propanediol 10 mg 10 mg PO DAILY #30 tabs 08/19/23 10/27/23 Rx tablet (Farxiga) metoprolol succinate 50 mg 50 mg PO DAILY #90 tabs 10/23/23 10/27/23 Rx tablet,extended release 24 hr carvedilol 25 mg tablet 25 mg PO BID 10/27/23 10/27/23 History fluticasone propionate 50 1 spray intranasal DAILY 10/27/23 10/27/23 History mcg/actuation nasal spray,suspension Patient History Medical History Anxiety 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 Atrial fibrillation s/p cardioversion 01/2023 [place]. on Eliquis. Follows with Dr. Rios. Zurita's palsy DX 01/30/23 *[facility] (CURRENTLY RX PREDNISONE FOR 5 DAYS) RT EYE CLOSED AND PARALYSIS RT SIDE CHF (congestive heart failure) Chronic dyspnea Diverticulosis GERD (gastroesophageal reflux disease) History of COVID-19 07/2022>DEVELOPED PNX AFTER COVID AND TREATED History of skin cancer NOSE AREA History of ventricular tachycardia Hypertension Migraine Restless leg syndrome Surgical History Family history of reaction to anesthesia MOTHER AND DAUGHTER>N/V History of arthroscopy LEFT KNEE History of cardioversion History of colonoscopy History of ear surgery ? 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 Ruiz as patient in [facility]. Results & Data Vital Signs (Past 12 Hours) Vital Signs Pulse Pulse Resp BP BP Pulse Ox O2 Del Method 10/28/23 07:31 80 10/28/23 06:30 89 30 H 94 10/28/23 06:00 143/99 H 10/28/23 06:00 83 30 H 95 10/28/23 05:30 89 26 H 97 10/28/23 05:00 121/73 10/28/23 05:00 87 28 H 10/28/23 04:30 87 26 H 95 10/28/23 04:00 80 26 H 93 10/28/23 04:00 130/95 10/28/23 03:30 90 25 H 93 10/28/23 03:00 90 25 H 92 10/28/23 03:00 126/79 10/28/23 02:30 82 25 H 92 10/28/23 02:00 89 28 H 96 10/28/23 02:00 155/94 H 10/28/23 01:30 90 26 H 96 10/28/23 01:21 94 H 28 H 97 10/28/23 01:21 156/103 H 10/28/23 01:20 89 18 156/103 H 96 Room Air 10/28/23 01:17 95 Room Air 10/28/23 01:00 144/115 H 10/28/23 01:00 95 10/28/23 00:30 112 H 27 H 93 10/28/23 00:00 154/102 H 10/28/23 00:00 90 22 96 O2 Flow Rate 10/28/23 07:31 10/28/23 06:30 10/28/23 06:00 10/28/23 06:00 10/28/23 05:30 10/28/23 05:00 10/28/23 05:00 10/28/23 04:30 10/28/23 04:00 10/28/23 04:00 10/28/23 03:30 10/28/23 03:00 10/28/23 03:00 10/28/23 02:30 10/28/23 02:00 10/28/23 02:00 10/28/23 01:30 10/28/23 01:21 10/28/23 01:21 10/28/23 01:20 10/28/23 01:17 0 10/28/23 01:00 10/28/23 01:00 10/28/23 00:30 10/28/23 00:00 10/28/23 00:00 Laboratory Results CBC notes hemoglobin 15.0, crit 44.6, white count 6.4, and platelet count [id number]. Electrolytes note a sodium 136, potassium 3.6, chloride 103, bicarb 27, BUN 13, creatinine 1.07, and glucose of 96. High sensitivity troponin 17 on presentation. Diagnostic Findings EKG on presentation notes atrial fibrillation with a rapid ventricular response and PVCs versus aberrant beats. There is a left axis deviation and poor R-wave progression across the anterior precordium. PG Care Time/CCT Total # of Minutes Spent Total Time Spent with Patient: Total time spent is greater than 50% in coordination of care (as documented) at patient's floor/unit and/or counseling patient: Coding Level of Care Code 20608 IN/OBS CONSULT LVL 4,60M Diagnoses Atrial fibrillation with rapid ventricular response I48.91 COVID-19 U07.1 Nonischemic cardiomyopathy I42.8
[2023-10-28] MEDS ORDERED: BUTALBITAL/ACETAMIN/CAFFEINE TAB PO STA ×2 (14:47→21:50)
[2023-10-28] MEDS ORDERED: ONDANSETRON INJ 2 MG/ML 2 ML VIAL IV STA (14:47)
--- NOTE | 2023-10-28 14:51 | Hospitalist Progress Note ---
Date of Service October 28, 2023 Assessment & Plan (1) Atrial fibrillation with rapid ventricular response: Plan: Patient with known history of atrial fibrillation. Was previously cardioverted which maintained NSR for about 7 months. On carvedilol 25 mg BID and Eliquis BID at home. Uncontrolled a.fib is likely due to physical stress of his COVID illness. I corresponded with Dr Vega - he advises continued use of coreg + the metoprolol succinate. He was dig loaded overnight, but Dr Vega recommends deferring on PO dig at this time. Follow rates overnight. Cont Eliquis at reduced dose of 2.5mg BID while on Paxlovid. TSH, K, mag all wnl. (2) COVID-19: Plan: Fortunately labs, vitals, etc are stable. CXR without pneumonia. O2 sats wnl. Lungs clear today. Worst symptom is headache - could have migraine (has past h/o such). Fioricet with zofran x 1 now. Day #2 of Paxlovid. There is interaction between Paxlovid & Eliquis thus latter dose decreased to 2.5mg BID. Entresto dose also reduced due to interaction. Will need reduced doses until Paxlovid course is complete. Defer on steroids at this time unless worsening respiratory symptoms/signs of lower resp tract disease/pneumonia. Repeat labs in am. Supportive care. (3) Cardiomyopathy: Plan: Patient with history of non-ischemic cardiomyopathy. Remains on Entresto, dapagliflozin, furosemide, carvedilol. ECHO 08/15 - EF 30-35%, dilated cardiomyopathy. Adjust medications as above in #2. Compensated on exam today. Appreciate cardiology consultation. (4) Restless leg syndrome: Plan: Stable on diazepam 5 mg QHS, cyclobenzaprine 10 mg, melatonin 5 mg QHS. Continue while inpatient. (5) Asthma: Plan: Patient stable on Advair, montelukast, and fluticasone nasal. No exacerbation at this time. (6) Chest pain: Plan: 2nd rapid a.fib? no evidence of ACS. no evidence of lower respiratory tract disease from COVID. O2 sats wnl. Chest pain has resolved. Monitor. (7) Dyspnea: Plan: 2nd to rapid a.fib, +/- COVID? improved. monitor. Plan updated by phone while I was in the room visiting with him watch overnight home tomorrow? Admission and Anticipated Discharge Date Admission Date: October 27, 2023 Subjective HRs overnight much improved s/p dig loading and addition of metoprolol succ to his coreg during the visit he c/o cough, nasal congestion, myalgias, fatigue, and severe headache he does report a past h/o migraines headache is worst symptom eating is a little better today tolerating Paxlovid w/o GI side effects Review of Systems Review of Systems: gen - no fevers today cv - had chest "pain" / tightness yesterday - now resolved pulm - cough but no dyspnea or wheeze GI - no vomiting; no abd pain Physical Exam Physical Exam: gen - looks ill but nontoxic, coughing mouth - MMM neck - no JVD heart - irregularly irregular, s1 s2, no murmur lungs - CTA b/l; no rales, no wheeze, no increased work of breathing abd - soft NT ND BS+ ext - no edema, pulses 2+ b/l psych - a/o x 3 Results & Data Results & Data Vital Signs (Past 12 Hours) Vital Signs Pulse Pulse Resp BP BP Pulse Ox O2 Del Method 10/28/23 14:30 93 H 14 94 10/28/23 14:01 106/73 10/28/23 14:01 90 22 83 L 10/28/23 14:00 75 14 89 L 10/28/23 13:30 82 23 94 10/28/23 13:01 131/86 10/28/23 13:01 75 19 97 10/28/23 13:00 91 H 23 97 10/28/23 12:30 96 H 18 99 10/28/23 12:13 80 18 124/86 98 Room Air 10/28/23 12:01 73 23 93 10/28/23 12:01 124/86 10/28/23 12:00 83 20 93 10/28/23 11:30 84 16 93 10/28/23 11:21 68 16 98 10/28/23 11:21 124/83 10/28/23 11:00 87 21 96 10/28/23 07:31 80 10/28/23 06:30 89 30 H 94 10/28/23 06:00 143/99 H 10/28/23 06:00 83 30 H 95 12/06/23 05:30 89 26 H 97 10/28/23 05:00 121/73 10/28/23 05:00 87 28 H 10/28/23 04:30 87 26 H 95 10/28/23 04:00 80 26 H 93 10/28/23 04:00 130/95 10/28/23 03:30 90 25 H 93 10/28/23 03:00 90 25 H 92 10/28/23 03:00 126/79 Laboratory Results Laboratory Results - last 48 hr 10/27/23 10/27/23 10/28/23 08:57 09:36 03:28 WBC 9.32 6.41 RBC 5.87 5.30 Hgb 16.8 15.0 Hct 48.7 44.6 MCV 83.0 84.2 MCH 28.6 28.3 MCHC 34.5 33.6 RDW Std Deviation 39.8 41.8 RDW Coeff of Nam 13.3 13.4 Plt Count 195 143 MPV 11.1 10.9 Immature Gran % (Auto) 0.3 0.5 Neut % (Auto) 85.9 75.7 Lymph % (Auto) 4.4 10.3 [place] % (Auto) 7.5 12.8 Eos % (Auto) 1.7 0.5 Baso % (Auto) 0.2 0.2 Neut # (Auto) 8.00 H 4.86 Lymph # (Auto) 0.41 L 0.66 L [place] # (Auto) 0.70 H 0.82 H Eos # (Auto) 0.16 0.03 Baso # (Auto) 0.02 0.01 Immature Gran # (Auto) 0.03 0.03 PT 11.6 INR 1.1 Sodium 139 136 Potassium 3.6 3.6 Chloride 106 103 Carbon Dioxide 23 27 Anion Gap 10 6 BUN 13 13 Creatinine 1.02 1.07 Est Cr Clr Drug Dosing 106.6 101.6 Est GFR ( Amer) 95.5 90.1 Est GFR (Non-Af Amer) 82.4 77.7 BUN/Creatinine Ratio 12.7 12.1 Glucose 98 96 POC Glucose Calcium 9.2 8.4 L Magnesium 2.0 Total Bilirubin 0.9 AST 18 ALT 16 Alkaline Phosphatase 46 Troponin I High Sens 17.0 Total Protein 6.8 Albumin 4.2 Globulin 2.6 Albumin/Globulin Ratio 1.6 Lipase 15 TSH 2.614 Adenovirus (PCR) Not Detected B. pertussis DNA (PCR) Not Detected B.parapertussis DNA PCR Not Detected C. pneumoniae DNA (PCR) Not Detected Coronavirus OC43 (PCR) Not Detected Coronavirus HKU1 (PCR) Not Detected Coronavirus 229E (PCR) Not Detected SARS-CoV-2 (PCR) DETECTED A* Coronavirus NL63 (PCR) Not Detected Human Metapneumovir PCR Not Detected Influenza Type A (PCR) Not Detected Influenza Type B (PCR) Not Detected M. pneumoniae (PCR) Not Detected Parainfluenza 1 (PCR) Not Detected Parainfluenza 2 (PCR) Not Detected Parainfluenza 3 (PCR) Not Detected Parainfluenza 4 (PCR) Not Detected RSV (PCR) Not Detected Entero/Rhino (PCR) Not Detected PG Care Time/CCT Total # of Minutes Spent Total Time Spent with Patient: Total time spent is greater than 50% in coordination of care (as documented) at patient's floor/unit and/or counseling patient: Coding Level of Care Code 41635 SUB INP/OBS CARE 2/35MIN Diagnoses Atrial fibrillation with rapid ventricular response I48.91 COVID-19 U07.1 Dilated cardiomyopathy I42.0 Cardiomyopathy type: dilated Restless leg syndrome G25.81 Asthma J45.909 Chest pain R07.9 Dyspnea R06.00 (3) Cardiomyopathy Cardiomyopathy type: dilated Qualified Code(s): I42.0 - Dilated cardiomyopathy
[2023-10-28] MEDS ORDERED: BUTALBITAL/ACETAMIN/CAFFEINE TAB PO ONE (15:10)
--- NOTE | 2023-10-28 15:23 | Electrocardiogram Report ---
Test Reason : Blood Pressure : / mmHG Vent. Rate : 129 BPM Atrial Rate : 000 BPM P-R Int : 000 ms QRS Dur : 098 ms QT Int : 326 ms P-R-T Axes : 000 -39 021 degrees QTc Int : 477 ms Atrial fibrillation with rapid ventricular response Left axis deviation Poor R wave progression, consider anterior [place] vs. lead placement vs. LVH Abnormal ECG When compared with ECG of 22-SEP-2023 11:19, (unconfirmed) Borderline criteria for Anterior infarct are now Present Confirmed by Jhonny Vega ([id number]) on 10/28/2023 3:22:55 PM Referred By: REFERRED SELF Confirmed By:Jhonny Vega
[2023-10-28] MEDS: MELATONIN 3 MG TAB PO SCH (22:39)
[2023-10-28] MEDS: CYCLOBENZAPRINE HCL 10 MG TAB PO SCH (22:42)
[2023-10-28] MEDS ORDERED: METOCLOPRAMIDE HCL INJ 5 MG/ML 2 ML VIAL IV ONE (23:41)
[2023-10-29] MEDS ORDERED: MoRPHine SULFATE 4 MG/ML 1 ML CARP\\VIAL IV STA (05:48)
[2023-10-29 06:48] LABS: Basophils # (auto) 0.02 K/uL (0.00-0.20); Basophils % (auto) 0.5 %; Eosinophils # (auto) 0.13 K/uL (0.00-0.50); Eosinophils % (auto) 3.2 %; Hematocrit (blood only) 44.8 % (42.0-52.0); Hemoglobin 15.2 g/dl (14.0-18.0); Immature Granulocytes # (auto) 0.01 K/uL (0.01-0.20); Immature Granulocytes % (auto) 0.2 %; Mean Corpuscular Hemoglobin 28.4 pg (25.0-34.0); Mean Corpuscular Hgb Conc 33.9 g/dL (32.0-36.0); Mean Corpuscular Volume 83.6 fL (80.0-100.0); Mean Platelet Volume 10.8 fL (9.4-12.4); Monocytes # (auto) 0.67 K/uL (0.11-0.59); Monocytes % (auto) 16.7 %; Neutrophils # (auto) 2.38 K/uL (1.40-6.50); Neutrophils % (auto) 59.4 %; Platelet Count 155 K/uL (130-400); RDW Coefficient of Variation 13.4 % (11.5-14.5); Red Blood Count 5.36 M/uL (4.70-6.10); White Blood Count 4.01 K/ul (4.8-10.8)
[2023-10-29 07:02] LABS: BUN Creatinine Ratio 16.3 (10-20); Calcium 8.5 mg/dl (8.6-10.3); Creatinine Clr Calc Pharmacy 125.8 ml/min; Est GFR (African American) 113.1 ml/min; Est GFR (Non-African American) 97.6 ml/min; Potassium 3.6 mmol/L (3.5-5.1)
[2023-10-29] MEDS: MONTELUKAST SODIUM 10 MG TABLET PO SCH (09:37)
[2023-10-29] MEDS: VALSARTAN/SACUBITRIL 103/97MG TAB PO SCH ×2 (09:37→21:21)
[2023-10-29] MEDS: FLUTICASONE/VILANTEROL 100/25MCG 14 PUFFS/INHALER INH SCH (09:37)
[2023-10-29] MEDS: APIXABAN 2.5 MG TAB PO SCH ×2 (09:37→21:19)
[2023-10-29] MEDS: carvediloL 25 MG TAB PO SCH ×2 (09:37→21:20)
[2023-10-29] MEDS: METOPROLOL SUCC 50MG EXT REL TAB PO SCH (09:37)
[2023-10-29] MEDS: FAMOTIDINE 20 MG TAB PO SCH ×2 (09:37→21:21)
[2023-10-29] MEDS: BENZONATATE 100 MG CAPSULE PO SCH ×3 (09:37→21:57)
[2023-10-29] MEDS: FLUTICASONE PROPIONATE NA SPR 16 GM BTL SCH (09:37)
[2023-10-29] MEDS: NIRMATRELVIR/RITONAVIR 1 EA TAB PO SCH ×2 (09:38→21:23)
--- NOTE | 2023-10-29 13:04 | Hospitalist Progress Note ---
Date of Service October 29, 2023 Assessment & Plan (1) Atrial fibrillation with rapid ventricular response: Plan: Patient with known history of atrial fibrillation. Was previously cardioverted which maintained NSR for about 7 months. On carvedilol 25 mg BID and Eliquis BID at home. Presented with uncontrolled a.fib -- likely due to physical stress of his COVID illness. I corresponded with Dr Vega - he advises continued use of coreg + the metoprolol succinate. He was dig loaded hospital day #[address] Vega recommends deferring on PO dig at this time. Rates are under good control with double beta fish. Cont Eliquis at reduced dose of 2.5mg BID while on Paxlovid. TSH, K, mag all wnl. (2) COVID-19: Plan: Fortunately labs, vitals, etc are stable. CXR without pneumonia. Repeat cxr today -- still no pneumonia. Obtained repeat cxr due to mild chest tightness. O2 sats remain wnl. Lungs still clear today. Worst symptom is headache - could have migraine (has past h/o such). 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 If vertigo was to worsen/persist OR he has other posterior circulation symptoms would need MRI brain to r/o CVA. For vertigo start meclizine 12.5mg qid. For headache - give Fioricet again. Start dexamethasone 6mg daily - this should help with pulmonary symptoms (does have asthma), headache, and potentially any inner ear issues (vertigo). Day #3 of Paxlovid. There is interaction between Paxlovid & Eliquis thus latter dose decreased to 2.5mg BID. Entresto dose also reduced due to interaction. Will need reduced doses until Paxlovid course is complete. Repeat labs in am. Supportive care. (3) Cardiomyopathy: Plan: Patient with history of non-ischemic cardiomyopathy (presumed, has not had cath). Remains on Entresto, dapagliflozin, furosemide, carvedilol. ECHO 08/15 - EF 30-35%, dilated cardiomyopathy. Adjust medications as above in #2. Again compensated on exam today. CXR w/o pulm edema. Appreciate cardiology consultation. (4) Restless leg syndrome: Plan: Stable on diazepam 5 mg QHS, cyclobenzaprine 10 mg, melatonin 5 mg QHS. Continue while inpatient. (5) Asthma: Plan: Patient stable on Advair, montelukast, and fluticasone nasal. No wheezing but he is reporting bronchial cough and chest tightness. Start dexamethasone. Albuterol 2 puffs qid. Flutter valve. Incentive spirometer. Add mucinex BID. (6) Chest pain: Plan: More of a tightness. Suspect bronchoconstriction from his asthma. Starting steroids. no evidence of ACS. no evidence of pneumonia. doubt PE - is on anticoagulation. O2 sats wnl. Monitor. (7) Dyspnea: Plan: 2nd to rapid a.fib, + COVID/asthma. improved. monitor. Plan left message for pt's this evening no discharge today change OBS status to full admission home tomorrow if symptoms have improved?? Admission and Anticipated Discharge Date Admission Date: October 27, 2023 Subjective c/o multiple symptoms - * vertigo - multiple episodes with movement; each last 30 sec or less; started 2 days ago, but he did not mention this yesterday; denies visual changes; denies visual field cut * nausea/emesis - had latter after walking back from the bathroom earlier today * ongoing cough with some sputum * chest tightness but no pain * ongoing headache which DID respond to fioricet yesterday and then morphine this am; the morphine made him a little "off" * myalgias are slightly better * is eating despite the nausea * denies any dyspnea tele - a.fib, rates <100 Review of Systems Review of Systems: gen - no fevers or chills cv - no orthopnea, no edema pulm - no dyspnea at rest or with walking GI - no pain Physical Exam Physical Exam: gen - continues to look ill; looks tired; coughing mouth - MMM eyes - PERRL, EOMI, no nystagmus neck - no JVD heart - irregularly irregular, s1 s2, no murmur lungs - CTA b/l; no rales, no wheeze, no increased work of breathing abd - soft NT ND BS+ ext - no edema, pulses 2+ b/l psych - a/o x 3 neuro - finger/nose/finger maneuver w/o ataxia; strength 5/5 x 4 exts; no facial droop; did not test gait Results & Data Results & Data Vital Signs (Past 12 Hours) Vital Signs Temp Pulse Pulse Resp BP Pulse Ox O2 Del Method 10/29/23 11:41 36.8 C 77 20 131/86 95 Room Air 10/29/23 08:00 84 18 127/82 95 Room Air 10/29/23 07:46 80 10/29/23 03:00 37 C 73 18 134/96 93 Room Air Laboratory Results Laboratory Results 10/28/23 10/29/23 16:33 06:17 WBC 4.01 L RBC 5.36 Hgb 15.2 Hct 44.8 MCV 83.6 MCH 28.4 MCHC 33.9 RDW Std Deviation 41.0 RDW Coeff of Nam 13.4 Plt Count 155 MPV 10.8 Immature Gran % (Auto) 0.2 Neut % (Auto) 59.4 Lymph % (Auto) 20.0 [place] % (Auto) 16.7 Eos % (Auto) 3.2 Baso % (Auto) 0.5 Neut # (Auto) 2.38 Lymph # (Auto) 0.80 L [place] # (Auto) 0.67 H Eos # (Auto) 0.13 Baso # (Auto) 0.02 Immature Gran # (Auto) 0.01 Sodium 139 Potassium 3.6 Chloride 105 Carbon Dioxide 27 Anion Gap 7 BUN 14 Creatinine 0.86 Est Cr Clr Drug Dosing 125.8 Est GFR ( Amer) 113.1 Est GFR (Non-Af Amer) 97.6 BUN/Creatinine Ratio 16.3 Glucose 88 POC Glucose 106 H Calcium 8.5 L Troponin I High Sens 17.0 PG Care Time/CCT Total # of Minutes Spent Total Time Spent with Patient: Total time spent is greater than 50% in coordination of care (as documented) at patient's floor/unit and/or counseling patient: Coding Level of Care Code 39554 SUB INP/OBS CARE 3/50MIN Diagnoses Atrial fibrillation with rapid ventricular response I48.91 COVID-19 U07.1 Dilated cardiomyopathy I42.0 Cardiomyopathy type: dilated Restless leg syndrome G25.81 Asthma J45.909 Chest pain R07.9 Dyspnea R06.00 (3) Cardiomyopathy Cardiomyopathy type: dilated Qualified Code(s): I42.0 - Dilated cardiomyopathy
[2023-10-29] MEDS ORDERED: BUTALBITAL/ACETAMIN/CAFFEINE TAB PO STA (13:05)
--- NOTE | 2023-10-29 13:07 | Cardiology Progress Note ---
Date of Service October 29, 2023 Assessment & Plan (1) Atrial fibrillation with rapid ventricular response: Plan: -ventricular response controlled with the addition of metoprolol succinate to his carvedilol. -no further digoxin required. -rapid ventricular response likely related to his COVID infection. -continue Eliquis (dose reduced secondary to Paxlovid). (2) COVID-19: Plan: -management per hospitalist team. -Eliquis and Entresto doses reduced secondary to Paxlovid. (3) Nonischemic cardiomyopathy: Plan: -LVEF 30-35%, July 2023. -follows closely with Dr. Ventura as an outpatient. -continue carvedilol and Entresto. -Farxiga currently on hold, resume when able. -continue Lasix on a p.r.n. basis. Admission and Anticipated Discharge Date Admission Date: October 27, 2023 Subjective The patient is improving according to his report. Headache and shortness of breath much better. Physical Exam Physical Exam: Physical exam per Dr. Ruiz as patient in [facility] isolation. Results & Data Vital Signs (Past 12 Hours) Vital Signs Temp Pulse Pulse Resp BP Pulse Ox O2 Del Method 10/29/23 11:41 36.8 C 77 20 131/86 95 Room Air 10/29/23 08:00 84 18 127/82 95 Room Air 10/29/23 07:46 80 10/29/23 03:00 37 C 73 18 134/96 93 Room Air Diagnostic Findings vehicle monitor technician notes rate controlled atrial fibrillation. PG Care Time/CCT Total # of Minutes Spent Total Time Spent with Patient: Total time spent is greater than 50% in coordination of care (as documented) at patient's floor/unit and/or counseling patient: Coding Level of Care Code 64324 SUB INP/OBS CARE 3/50MIN Diagnoses Atrial fibrillation with rapid ventricular response I48.91 COVID-19 U07.1 Nonischemic cardiomyopathy I42.8
--- NOTE | 2023-10-29 14:16 | Electrocardiogram Report ---
Test Reason : Blood Pressure : / mmHG Vent. Rate : 094 BPM Atrial Rate : 241 BPM P-R Int : 000 ms QRS Dur : 104 ms QT Int : 332 ms P-R-T Axes : 000 -17 041 degrees QTc Int : 415 ms Atrial fibrillation with premature ventricular or aberrantly conducted complexes Possible Anterior infarct (cited on or before 12-JAN-2023) Abnormal ECG When compared with ECG of 27-OCT-2023 10:59, Inverted T waves have replaced nonspecific T wave abnormality in Anterior leads Confirmed by Jhonny Vega ([id number]) on 10/29/2023 2:16:03 PM Referred By: REFERRED SELF Confirmed By:Jhonny Vega
--- NOTE | 2023-10-29 14:16 | Electrocardiogram Report ---
Test Reason : Blood Pressure : / mmHG Vent. Rate : 093 BPM Atrial Rate : 288 BPM P-R Int : 000 ms QRS Dur : 104 ms QT Int : 344 ms P-R-T Axes : 000 -19 037 degrees QTc Int : 427 ms Atrial fibrillation with premature ventricular or aberrantly conducted complexes Poor R wave progression, consider anterior [place] vs. lead placement vs. LVH Abnormal ECG When compared with ECG of 28-OCT-2023 22:35, (unconfirmed) Nonspecific T wave abnormality no longer evident in Inferior leads Confirmed by Jhonny Vega ([id number]) on 10/29/2023 2:16:39 PM Referred By: REFERRED SELF Confirmed By:Jhonny Vega
[2023-10-29] MEDS: guaiFENesin 600 MG TABCR PO SCH ×2 (14:25→21:19)
[2023-10-29] MEDS: MECLIZINE 12.5 MG TAB PO SCH ×3 (14:25→21:57)
[2023-10-29] MEDS: dexAMETHasone 6 MG in SYRINGE 0 ML IV SCH (14:27)
[2023-10-29] MEDS: ALBUTEROL HFA 8 GM INHALER INH SCH ×3 (14:51→19:41)
--- NOTE | 2023-10-29 16:05 | XRay Report ---
SINGLE VIEW CHEST CLINICAL HISTORY: Chest tightness. Covid. FINDINGS: An AP, portable, upright chest radiograph is compared to study dated 10/27/2023. Correlation is made with chest CT dated 12/02/2022. The heart is enlarged. The pulmonary vasculature is not conge sted. There is mild chronic elevation of the right hemidiaphragm with dependent atelectasis. No airsp buffy consolidation or large pleural effusion is identified. No pneumothorax is seen. The bony thorax i s grossly intact. IMPRESSION: Cardiomegaly with no acute cardiopulmonary abnormality. ACT 112: Negative or not required by law. Electronically signed by: Reji Lauren M.D. 10/29/2023 4:04 PM
[2023-10-29] MEDS: MELATONIN 3 MG TAB PO SCH (21:57)
[2023-10-29] MEDS: CYCLOBENZAPRINE HCL 10 MG TAB PO SCH (21:57)
[2023-10-30] MEDS ORDERED: METOPROLOL TARTRATE 1 MG/ML VIAL IV PRN (01:53)
[2023-10-30] MEDS ORDERED: traMADol HCL 50 MG TABLET PO STA (02:08)
[2023-10-30] MEDS: ALBUTEROL HFA 8 GM INHALER INH SCH ×4 (07:57→19:44)
[2023-10-30 08:06] LABS: BUN Creatinine Ratio 22.3 (10-20); C Reactive Protein 1.8 mg/dl (0-0.5); Calcium 9.5 mg/dl (8.6-10.3); Est GFR (African American) 105.4 ml/min; Est GFR (Non-African American) 90.9 ml/min; Potassium 4.4 mmol/L (3.5-5.1)
[2023-10-30] MEDS: carvediloL 25 MG TAB PO SCH ×2 (08:51→21:24)
[2023-10-30] MEDS: APIXABAN 2.5 MG TAB PO SCH ×2 (08:51→21:24)
[2023-10-30] MEDS: FLUTICASONE PROPIONATE NA SPR 16 GM BTL SCH (08:52)
[2023-10-30] MEDS: FAMOTIDINE 20 MG TAB PO SCH ×2 (08:52→21:24)
[2023-10-30] MEDS: guaiFENesin 600 MG TABCR PO SCH ×2 (08:53→21:24)
[2023-10-30] MEDS: MECLIZINE 12.5 MG TAB PO SCH ×3 (08:54→17:18)
[2023-10-30] MEDS: MONTELUKAST SODIUM 10 MG TABLET PO SCH (08:54)
[2023-10-30] MEDS: METOPROLOL SUCC 50MG EXT REL TAB PO SCH (08:54)
[2023-10-30] MEDS: NIRMATRELVIR/RITONAVIR 1 EA TAB PO SCH ×2 (08:55→21:26)
[2023-10-30] MEDS: VALSARTAN/SACUBITRIL 103/97MG TAB PO SCH ×2 (08:56→21:24)
[2023-10-30] MEDS: BENZONATATE 100 MG CAPSULE PO SCH ×3 (09:55→21:24)
[2023-10-30] MEDS ORDERED: DIGOXIN 250 MCG in SYRINGE 9 ML IV ONE (10:30)
[2023-10-30] MEDS: FLUTICASONE/VILANTEROL 100/25MCG 14 PUFFS/INHALER INH SCH (10:59)
--- NOTE | 2023-10-30 12:22 | Cardiology Progress Note ---
Date of Service October 30, 2023 Assessment & Plan (1) Atrial fibrillation with rapid ventricular response: Plan: -ventricular response has been elevated since last evening. -would try digoxin 0.25 mg IV x2. Would then use digoxin 0.25 mg p.o. daily. -continue metoprolol succinate and carvedilol. -rapid ventricular response likely related to his COVID infection. -continue Eliquis (dose reduced secondary to Paxlovid). (2) COVID-19: Plan: -management per hospitalist team. -Eliquis and Entresto doses reduced secondary to Paxlovid. (3) Nonischemic cardiomyopathy: Plan: -LVEF 30-35%, July 2023. -follows closely with Dr. Ventura as an outpatient. -continue carvedilol and Entresto. -Farxiga currently on hold, resume when able. -continue Lasix on a p.r.n. basis. Admission and Anticipated Discharge Date Admission Date: October 29, 2023 Subjective The patient is improving clinically. He specifically denies palpitations related to his atrial fibrillation. Physical Exam Physical Exam: Physical exam per Dr. Ruiz as patient in [facility] isolation. Results & Data Vital Signs (Past 12 Hours) Vital Signs Temp Pulse Pulse Resp BP Pulse Ox O2 Del Method 10/30/23 11:52 36.3 C L 68 18 133/86 97 Room Air 10/30/23 11:00 82 10/30/23 08:00 99 H 10/30/23 08:00 36.8 C 90 18 129/80 94 Room Air 10/30/23 07:58 83 16 93 Room Air 10/30/23 02:30 36.7 C 91 H 18 148/93 H 95 Room Air Diagnostic Findings panel monitor noted an elevated ventricular response since approximately 8:00 p.m. last evening. PG Care Time/CCT Total # of Minutes Spent Total Time Spent with Patient: Total time spent is greater than 50% in coordination of care (as documented) at patient's floor/unit and/or counseling patient: Coding Level of Care Code 25291 SUB INP/OBS CARE 3/50MIN Diagnoses Atrial fibrillation with rapid ventricular response I48.91 COVID-19 U07.1 Nonischemic cardiomyopathy I42.8
[2023-10-30] MEDS: dexAMETHasone 6 MG in SYRINGE 0 ML IV SCH (13:35)
[2023-10-30] MEDS: ONDANSETRON INJ 2 MG/ML 2 ML VIAL IV PRN (13:44)
[2023-10-30] MEDS ORDERED: LORazepam 0.5 MG TAB PO STA (17:02)
--- NOTE | 2023-10-30 17:05 | Hospitalist Progress Note ---
Date of Service October 30, 2023 Assessment & Plan (1) Atrial fibrillation with rapid ventricular response: Plan: Patient with known history of atrial fibrillation. Was previously cardioverted which maintained NSR for about 7 months. On carvedilol 25 mg BID and Eliquis BID at home. Presented with uncontrolled a.fib -- likely due to physical stress of his COVID illness. Rates overall have been controlled with coreg + metoprolol succinate. He was dig loaded hospital day #1 as well. Did have uncontrolled a.fib overnight and this am with nausea/emesis and movement. Dr Vega recommended another dose of digoxin IV which was given (250mcg). Rates rest of day were normal. Cont Eliquis at reduced dose of 2.5mg BID while on Paxlovid. TSH, K, mag all wnl. (2) COVID-19: Plan: CXR x 2 without pneumonia. O2 sats remain wnl. Mild asthma symptoms remain with COVID as the trigger for the asthma flare. Day #2 dexamethasone 6mg daily. Worst symptom is headache - could have migraine (has past h/o such). 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 Day #4 of Paxlovid. There is interaction between Paxlovid & Eliquis thus latter dose decreased to 2.5mg BID. Entresto dose also reduced due to interaction. Will need reduced doses until Paxlovid course is complete. Limit fioricet use as it can reduce the effectiveness of the Paxlovid. Repeat labs in am. Supportive care. (3) Cardiomyopathy: Plan: Patient with history of non-ischemic cardiomyopathy (presumed, has not had cath). Remains on Entresto, dapagliflozin, furosemide, carvedilol. ECHO 08/15 - EF 30-35%, dilated cardiomyopathy. Adjust medications as above in #2. Again compensated on exam today. CXR w/o pulm edema. Appreciate cardiology consultation. (4) Restless leg syndrome: Plan: Stable on diazepam 5 mg QHS, cyclobenzaprine 10 mg, melatonin 5 mg QHS. Continue while inpatient. (5) Asthma: Plan: Patient with mild flare due to COVID infection. Day #2 steroids. Cont albuterol qid Cont Breo in selene of advair. Cont montelukast and fluticasone nasal. Cont Flutter valve, incentive spirometer, mucinex, and tessalon. o2 sats remain stable. (6) Chest pain: Plan: More of a tightness. Suspect bronchoconstriction from his asthma. no evidence of ACS. no evidence of pneumonia. doubt PE - is on anticoagulation. O2 sats wnl. Monitor. (7) Dyspnea: Plan: 2nd to rapid a.fib + COVID/asthma. improved. monitor. (8) Vertigo: Plan: statistically likely due to vestibular neuronitis from COVID infection. however, he continues with vertigo despite QID meclizine 12.5mg each dose. he is even getting sx's at rest and without movement. theoretically a migraine could cause vertigo (VB migraine) but doubt. ?double vision with rightward gaze during my exam today?? recommended MRI brain to r/o CVA - obtain today. increase meclizine to 25mg TID. could consider scop patch if refractory, ativan prn, etc. re-eval after MRI. Plan left message for pt's yesterday evening Admission and Anticipated Discharge Date Admission Date: October 29, 2023 Subjective some episodes of rapid a.fib to 130s with activity (and during episode of emesis) continues with vertigo with most spells lasting <1 min; had at least 4 today a couple have occurred with simply laying in bed still nausea/emesis continue headache continues although not as severe as yesterday did require dose of tramadol overnight albuterol is helping cough & chest symptoms appetite is good today Review of Systems Review of Systems: gen - no fever cv - no chest pain just occasional tightness; no orthopnea; no edema pulm - ongoing cough; sputum is better neuro - no double vision; no focal motor weakness Physical Exam Physical Exam: gen - continues to look ill although not as bad as yesterday; looks tired; occasional cough mouth - MMM eyes - PERRL, EOMI, maybe couple beats of horizontal nystagmus; with rightward gaze had brief double vision but no double vision otherwise neck - no JVD heart - irregularly irregular, s1 s2, no murmur lungs - CTA b/l; no rales, no wheeze, no increased work of breathing abd - soft NT ND BS+ ext - no edema, pulses 2+ b/l psych - a/o x 3 neuro - finger/nose/finger maneuver still w/o ataxia; strength 5/5 x 4 exts; no facial droop Results & Data Results & Data Vital Signs (Past 12 Hours) Vital Signs Temp Pulse Pulse Resp BP Pulse Ox O2 Del Method 10/30/23 15:47 67 18 96 Room Air 10/30/23 11:52 36.3 C L 68 18 133/86 97 Room Air 10/30/23 11:00 82 10/30/23 10:57 76 18 96 Room Air 10/30/23 09:00 Room Air 10/30/23 08:00 99 H 10/30/23 08:00 36.8 C 90 18 129/80 94 Room Air 10/30/23 07:58 83 16 93 Room Air Laboratory Results Laboratory Results 10/30/23 07:19 Sodium 139 Potassium 4.4 D Chloride 105 Carbon Dioxide 28 Anion Gap 6 BUN 21 Creatinine 0.94 Est Cr Clr Drug Dosing 115.0 Est GFR ( Amer) 105.4 Est GFR (Non-Af Amer) 90.9 BUN/Creatinine Ratio 22.3 H Glucose 127 H Calcium 9.5 C-Reactive Protein 1.80 H PG Care Time/CCT Total # of Minutes Spent Total Time Spent with Patient: Total time spent is greater than 50% in coordination of care (as documented) at patient's floor/unit and/or counseling patient: Coding Level of Care Code 09180 SUB INP/OBS CARE 3/50MIN Diagnoses Atrial fibrillation with rapid ventricular response I48.91 COVID-19 U07.1 Dilated cardiomyopathy I42.0 Cardiomyopathy type: dilated Restless leg syndrome G25.81 Asthma J45.909 Chest pain R07.9 Dyspnea R06.00 Vertigo R42 (3) Cardiomyopathy Cardiomyopathy type: dilated Qualified Code(s): I42.0 - Dilated cardiomyopathy
[2023-10-30] MEDS ORDERED: LORazepam 0.5 MG TAB ONE (20:16)
[2023-10-30] MEDS: CYCLOBENZAPRINE HCL 10 MG TAB PO SCH (21:23)
[2023-10-30] MEDS: MECLIZINE HCL 25 MG TAB PO SCH (21:24)
[2023-10-30] MEDS: MELATONIN 3 MG TAB PO SCH (21:25)
--- NOTE | 2023-10-30 22:58 | Magnetic Resonance Report ---
Exam(s): MRI HEAD Without Contrast EXAM: MR Head Without Intravenous Contrast CLINICAL HISTORY: Reason for exam: COVID+, vertigo; eval CVA. TECHNIQUE: Magnetic resonance images of the head/brain without intravenous contrast in multiple planes. COMPARISON: Comparison made to prior head CT from October 27, 2023. FINDINGS: Brain: Minimal nonspecific white matter changes. No mass. No hemorrhage. No acute infarct. The flow voids at the base of the brain are intact. There are 10.7 mm of right cerebellar tonsillar ectopia and 4.2 mm of left cerebellar tonsillar ectopia. Ventricles: Unremarkable. No ventriculomegaly. Bones/joints: Hyperostosis frontalis interna. No acute fracture. Sinuses: Chronic left sphenoid, maxillary and ethmoid sinusitis. No acute sinusitis. Mastoid air cells: Unremarkable as visualized. No mastoid effusion. Orbits: Unremarkable as visualized. IMPRESSION: No evidence of acute intracranial pathology. Minimal nonspecific white matter changes. Electronically signed by: Leydi Mitchell MD 10/30/23 22:57 PM
[2023-10-31] MEDS: ACETAMINOPHEN 325 MG TAB PO PRN ×3 (06:35→20:17)
[2023-10-31 07:34] LABS: BUN Creatinine Ratio 27.3 (10-20); Calcium 9.3 mg/dl (8.6-10.3); Creatinine Clr Calc Pharmacy 122.6 ml/min; Est GFR (African American) 112.1 ml/min; Est GFR (Non-African American) 96.7 ml/min; Potassium 3.7 mmol/L (3.5-5.1)
[2023-10-31] MEDS: ALBUTEROL HFA 8 GM INHALER INH SCH ×4 (07:43→18:06)
[2023-10-31] MEDS: carvediloL 25 MG TAB PO SCH ×2 (08:36→20:12)
[2023-10-31] MEDS: APIXABAN 2.5 MG TAB PO SCH ×2 (08:36→20:11)
[2023-10-31] MEDS: FLUTICASONE PROPIONATE NA SPR 16 GM BTL SCH (08:37)
[2023-10-31] MEDS: FLUTICASONE/VILANTEROL 100/25MCG 14 PUFFS/INHALER INH SCH (08:37)
[2023-10-31] MEDS: guaiFENesin 600 MG TABCR PO SCH ×2 (08:37→20:13)
[2023-10-31] MEDS: FAMOTIDINE 20 MG TAB PO SCH ×2 (08:37→20:13)
[2023-10-31] MEDS: MECLIZINE HCL 25 MG TAB PO SCH ×3 (08:38→20:15)
[2023-10-31] MEDS: METOPROLOL SUCC 50MG EXT REL TAB PO SCH (08:39)
[2023-10-31] MEDS: VALSARTAN/SACUBITRIL 103/97MG TAB PO SCH ×2 (08:39→20:16)
[2023-10-31] MEDS: NIRMATRELVIR/RITONAVIR 1 EA TAB PO SCH ×2 (08:40→20:15)
[2023-10-31] MEDS: MONTELUKAST SODIUM 10 MG TABLET PO SCH (08:40)
[2023-10-31] MEDS: BENZONATATE 100 MG CAPSULE PO SCH ×3 (09:09→20:11)
[2023-10-31] MEDS: dexAMETHasone 6 MG in SYRINGE 0 ML IV SCH (14:02)
[2023-10-31] MEDS ORDERED: MAGNESIUM SULFATE / D5W 1 GM/100 ML BAG IV ONE (14:22)
--- NOTE | 2023-10-31 16:05 | Hospitalist Progress Note ---
Date of Service October 31, 2023 Assessment & Plan (1) Atrial fibrillation with rapid ventricular response: Plan: Patient with known history of atrial fibrillation. Was previously cardioverted which maintained NSR for about 7 months. On carvedilol 25 mg BID and Eliquis BID at home. Presented with uncontrolled a.fib -- likely due to physical stress of his COVID illness. Rates overall have been controlled with coreg + metoprolol succinate. He was dig loaded hospital day #1 as well. Then received dig again yesterday. Cont Eliquis at reduced dose of 2.5mg BID while on Paxlovid. TSH, K, mag all wnl. (2) COVID-19: Plan: CXR x 2 without pneumonia. O2 sats remain wnl. Mild asthma symptoms remain with COVID as the trigger for the asthma flare. Day #3 dexamethasone 6mg daily. Plan 7 days in total. Worst symptom is headache - could have migraine (has past h/o such). 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 Day #4-5 of Paxlovid. last dose tomorrow am. There is interaction between Paxlovid & Eliquis thus latter dose decreased to 2.5mg BID. Entresto dose also reduced due to interaction. Will need reduced doses until Paxlovid course is complete. Limit fioricet use as it can reduce the effectiveness of the Paxlovid. Repeat labs in am. Supportive care. (3) Cardiomyopathy: Plan: Patient with history of non-ischemic cardiomyopathy (presumed, has not had cath). Remains on Entresto, dapagliflozin, furosemide, carvedilol. ECHO 08/15 - EF 30-35%, dilated cardiomyopathy. Adjust medications as above in #2. Again compensated on exam today. CXR w/o pulm edema. Appreciate cardiology consultation. (4) Restless leg syndrome: Plan: Stable on diazepam 5 mg QHS, cyclobenzaprine 10 mg, melatonin 5 mg QHS. Continue while inpatient. (5) Asthma: Plan: Patient with mild flare due to COVID infection. Day #3 steroids. Cont albuterol qid Cont Breo in selene of advair. Cont montelukast and fluticasone nasal. Cont Flutter valve, incentive spirometer, mucinex, and tessalon. o2 sats remain stable. (6) Chest pain: Plan: More of a tightness. Suspect bronchoconstriction from his asthma. no evidence of ACS. no evidence of pneumonia. doubt PE - is on anticoagulation. O2 sats wnl. Monitor. (7) Dyspnea: Plan: 2nd to rapid a.fib + COVID/asthma. improved. monitor. stable o2 sats. (8) Vertigo: Plan: statistically likely due to vestibular neuronitis from COVID infection. theoretically a migraine could cause vertigo (VB migraine) but doubt. MRI brain WITHOUT acute CVA, ICH, etc cont meclizine 25mg TID. could consider scop patch if refractory, ativan prn, etc. 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 Admission and Anticipated Discharge Date Admission Date: October 29, 2023 Subjective afib, rates <100 overnight he is eating most of his meals 2-3 episodes of brief vertigo since Midnight - much more manageable than previous still with occasional nausea still with headache coughing but no worse than prior no dyspnea on exertion ambulating in room no double vision or any new neuro symptoms Review of Systems Review of Systems: gen - no fevers or chills; still with fatigue cv - no chest pain or tightness today pulm - sputum better GI - no diarrhea; hasn't moved bowels much while here Physical Exam Physical Exam: gen - looks better today; not as tired appearing; occasional cough; NAD mouth - MMM eyes - PERRL, EOMI, NO nystagmus today; no diplopia with gaze in any direction neck - no JVD heart - irregularly irregular, s1 s2, no murmur lungs - CTA b/l; still no rales, no wheeze unless he is coughing, no increased work of breathing abd - soft NT ND BS+ ext - no edema, pulses 2+ b/l psych - a/o x 3 Results & Data Results & Data Vital Signs (Past 12 Hours) Vital Signs Temp Pulse Pulse Resp BP Pulse Ox O2 Del Method 10/31/23 14:28 60 18 96 Room Air 10/31/23 11:51 36.5 C 51 L 18 117/68 96 Room Air 10/31/23 10:53 68 18 97 Room Air 10/31/23 10:18 Room Air 10/31/23 07:43 70 16 94 Room Air 10/31/23 07:34 81 10/31/23 07:28 36.5 C 67 18 142/88 H 93 Room Air Laboratory Results Laboratory Results 10/31/23 06:24 WBC RBC Hgb Hct MCV MCH MCHC RDW Std Deviation RDW Coeff of Nam Plt Count MPV Sodium 140 Potassium 3.7 Chloride 105 Carbon Dioxide 28 Anion Gap 7 BUN 24 H Creatinine 0.88 Est Cr Clr Drug Dosing 122.6 Est GFR ( Amer) 112.1 Est GFR (Non-Af Amer) 96.7 BUN/Creatinine Ratio 27.3 H Glucose 126 H Calcium 9.3 Magnesium PG Care Time/CCT Total # of Minutes Spent Total Time Spent with Patient: Total time spent is greater than 50% in coordination of care (as documented) at patient's floor/unit and/or counseling patient: Coding Level of Care Code 86995 SUB INP/OBS CARE 3/50MIN Diagnoses Atrial fibrillation with rapid ventricular response I48.91 COVID-19 U07.1 Dilated cardiomyopathy I42.0 Cardiomyopathy type: dilated Restless leg syndrome G25.81 Asthma J45.909 Chest pain R07.9 Dyspnea R06.00 Vertigo R42 Headache R51 Cerebellar tonsillar ectopia Q04.8 (3) Cardiomyopathy Cardiomyopathy type: dilated Qualified Code(s): I42.0 - Dilated cardiomyopathy
[2023-10-31] MEDS ORDERED: VALPROATE SOD 500 MG in DEXTROSE 5% 50 ML IV ONE (18:45)
[2023-10-31] MEDS: CYCLOBENZAPRINE HCL 10 MG TAB PO SCH (20:12)
[2023-10-31] MEDS ORDERED: SUMAtriptan succinate 25 MG TAB PO STA (21:18)
[2023-10-31] MEDS: MELATONIN 3 MG TAB PO SCH (22:07)
[2023-10-31] MEDS: diazePAM 5 MG TABLET PO PRN (22:08)
[2023-11-01] MEDS: ALBUTEROL HFA 8 GM INHALER INH SCH ×4 (07:09→19:36)
[2023-11-01 07:46] LABS: Hemoglobin 17.2 g/dl (14.0-18.0); Mean Corpuscular Hemoglobin 28.3 pg (25.0-34.0); Mean Corpuscular Hgb Conc 34.4 g/dL (32.0-36.0); Mean Corpuscular Volume 82.4 fL (80.0-100.0); Mean Platelet Volume 10.8 fL (9.4-12.4); Platelet Count 214 K/uL (130-400); RDW Coefficient of Variation 13.3 % (11.5-14.5); RDW Standard Deviation 39.5 fL (36.4-46.3); Red Blood Count 6.07 M/uL (4.70-6.10); White Blood Count 14.41 K/ul (4.8-10.8)
[2023-11-01 08:31] LABS: BUN Creatinine Ratio 28.4 (10-20); Calcium 9.1 mg/dl (8.6-10.3); Creatinine Clr Calc Pharmacy 133.7 ml/min; Est GFR (Non-African American) 100.1 ml/min; Magnesium 2.1 mg/dl (1.7-2.4); Potassium 3.6 mmol/L (3.5-5.1)
[2023-11-01] MEDS: APIXABAN 2.5 MG TAB PO SCH ×2 (08:50→20:31)
[2023-11-01] MEDS: BENZONATATE 100 MG CAPSULE PO SCH ×3 (08:50→20:31)
[2023-11-01] MEDS: FLUTICASONE PROPIONATE NA SPR 16 GM BTL SCH (08:51)
[2023-11-01] MEDS: carvediloL 25 MG TAB PO SCH (08:51)
[2023-11-01] MEDS: FAMOTIDINE 20 MG TAB PO SCH ×2 (08:51→20:33)
[2023-11-01] MEDS: FLUTICASONE/VILANTEROL 100/25MCG 14 PUFFS/INHALER INH SCH (08:52)
[2023-11-01] MEDS: guaiFENesin 600 MG TABCR PO SCH ×2 (08:52→20:33)
[2023-11-01] MEDS: MECLIZINE HCL 25 MG TAB PO SCH ×2 (08:53→14:15)
[2023-11-01] MEDS: METOPROLOL SUCC 50MG EXT REL TAB PO SCH ×2 (08:53→20:35)
[2023-11-01] MEDS: NIRMATRELVIR/RITONAVIR 1 EA TAB PO SCH ×2 (08:54→21:35)
[2023-11-01] MEDS: MONTELUKAST SODIUM 10 MG TABLET PO SCH (08:54)
[2023-11-01] MEDS: VALSARTAN/SACUBITRIL 103/97MG TAB PO SCH ×2 (08:55→20:36)
[2023-11-01] MEDS: dexAMETHasone 6 MG in SYRINGE 0 ML IV SCH (14:15)
--- NOTE | 2023-11-01 20:01 | Hospitalist Progress Note ---
Date of Service November 01, 2023 Assessment & Plan (1) Atrial fibrillation with rapid ventricular response: Plan: Patient with known history of atrial fibrillation. Was previously cardioverted which maintained NSR for about 7 months. On carvedilol 25 mg BID and Eliquis BID at home. Presented this admission with uncontrolled a.fib -- likely due to physical stress of his COVID illness. Rates overall have been controlled with coreg + metoprolol succinate. He was dig loaded hospital day #1; then received dig again on Thursday. Cont Eliquis at reduced dose of 2.5mg BID while on Paxlovid. TSH, K, mag all wnl. Plan - reduce dose of coreg to 6.25mg; increase metoprolol succinate to 50mg BID. then wean coreg off completely and proceed forward with metoprolol only. (2) COVID-19: Plan: IMPROVED. CXR x 2 without pneumonia. O2 sats remain wnl. Mild asthma symptoms remain with COVID as the trigger for the asthma flare. Day #4 dexamethasone 6mg daily. Plan 7 days in total. Worst symptom is headache - could have migraine (has past h/o such). 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 Today is final day of 5-day course of Paxlovid. There is interaction between Paxlovid & Eliquis thus latter dose decreased to 2.5mg BID. Entresto dose also reduced due to interaction. Need to check with pharmacy to see when Eliquis/Entresto dosing can be adjusted back to normal doses. Leukocytosis on CBC today likely due to steroids and not a sign of any bacterial process. (3) Cardiomyopathy: Plan: Patient with history of non-ischemic cardiomyopathy (presumed, has not had cath). Remains on Entresto, dapagliflozin, furosemide, carvedilol. ECHO 08/15 - EF 30-35%, dilated cardiomyopathy. Adjust medications as above in #2. Again compensated on exam today. CXR w/o pulm edema. Appreciate cardiology consultation. Weaning coreg off; changing to metoprolol succ BID. (4) Restless leg syndrome: Plan: Stable on diazepam 5 mg QHS, cyclobenzaprine 10 mg, melatonin 5 mg QHS. Continue while inpatient. (5) Asthma: Plan: Patient with mild flare due to COVID infection. Day #4 steroids. Cont albuterol qid Cont Breo in selene of advair. Resume latter at dc. Cont montelukast and fluticasone nasal. Cont Flutter valve, incentive spirometer, mucinex, and tessalon. o2 sats remain stable. (6) Chest pain: Plan: Suspect bronchoconstriction from his asthma. resolved. no evidence of ACS. no evidence of pneumonia. doubt PE - is on anticoagulation. o2 sats nl the entire hospitalization. (7) Dyspnea: Plan: 2nd to rapid a.fib + COVID/asthma. improved. stable o2 sats. (8) Vertigo: Plan: statistically likely due to vestibular neuronitis from COVID infection. theoretically a migraine could cause vertigo (VB migraine) but doubt. MRI brain WITHOUT acute CVA, ICH, etc cont meclizine but lower dose to 12.5mg TID. wean off next 3-4 days. 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: Plan: I discussed this with him Told him that he has had this likely since if he had had severe, chronic migraine headaches - refractory to meds - for years perhaps he would have needed neurosurg eval earlier in life at this point in time additional Rx for low lying tonsils is unnecessary he could f/u on routine basis with neuro to discuss more if desired Plan progressing left message for pt's on her cell phone this pm home tomorrow barring any setbacks or new issues Admission and Anticipated Discharge Date Admission Date: October 29, 2023 Subjective overall good day 1 episode of vertigo with walking to bathroom lasted about 1 minute then resolved while working with PT had fleeting dizziness/lightheadedness had BP taken during PT session - was told it was normal eating drinking mild cough - nonproductive no dyspnea had mild nausea today with the vertigo but no emesis headache is down to 2/10 today - very manageable still ill with COVID at home tele - a.fib, rates <100 wide complex rhythms seen on monitor - likely a.fib with aberrancy; not VT Review of Systems Review of Systems: gen - no fevers or chills cv - no chest pain or tightness pulm - cough only; no dyspnea; no KENNEDY; no orthopnea or PND GI - no abd pain; no emesis today; moving bowels Physical Exam Physical Exam: gen - again looks better today; occasional cough; NAD mouth - MMM neck - no JVD heart - irregularly irregular, s1 s2, no murmur lungs - CTA b/l; still no rales, no wheeze, no increased work of breathing abd - soft NT ND BS+ ext - no edema, pulses 2+ b/l psych - a/o x 3 Results & Data Results & Data Vital Signs (Past 12 Hours) Vital Signs Temp Pulse Pulse Resp BP Pulse Ox O2 Del Method 11/01/23 19:37 73 18 93 Room Air 11/01/23 19:00 37.0 C 92 H 16 132/91 94 Room Air 11/01/23 16:36 36.8 C 70 18 147/103 H 96 Room Air 11/01/23 14:40 60 18 98 Room Air 11/01/23 11:34 36.4 C L 62 18 138/88 96 Room Air 11/01/23 10:56 68 16 96 Room Air 11/01/23 10:41 67 11/01/23 10:34 Room Air Laboratory Results Laboratory Results - last 24 hr 11/01/23 06:50 WBC 14.41 H RBC 6.07 Hgb 17.2 Hct 50.0 MCV 82.4 MCH 28.3 MCHC 34.4 RDW Std Deviation 39.5 RDW Coeff of Nam 13.3 Plt Count 214 MPV 10.8 Sodium 140 Potassium 3.6 Chloride 105 Carbon Dioxide 28 Anion Gap 7 BUN 23 Creatinine 0.81 Est Cr Clr Drug Dosing 133.7 Est GFR ( Amer) 116.0 Est GFR (Non-Af Amer) 100.1 BUN/Creatinine Ratio 28.4 H Glucose 128 H Calcium 9.1 Magnesium 2.1 PG Care Time/CCT Total # of Minutes Spent Total Time Spent with Patient: Total time spent is greater than 50% in coordination of care (as documented) at patient's floor/unit and/or counseling patient: Coding Level of Care Code 92555 SUB INP/OBS CARE 2/35MIN Diagnoses Atrial fibrillation with rapid ventricular response I48.91 COVID-19 U07.1 Dilated cardiomyopathy I42.0 Cardiomyopathy type: dilated Restless leg syndrome G25.81 Asthma J45.909 Chest pain R07.9 Dyspnea R06.00 Vertigo R42 Headache R51 Cerebellar tonsillar ectopia Q04.8 (3) Cardiomyopathy Cardiomyopathy type: dilated Qualified Code(s): I42.0 - Dilated cardiomyopathy
[2023-11-01] MEDS: CYCLOBENZAPRINE HCL 10 MG TAB PO SCH (20:32)
[2023-11-01] MEDS: MECLIZINE 12.5 MG TAB PO SCH (20:34)
[2023-11-01] MEDS ORDERED: carvediloL 6.25 MG TAB PO ONE (21:00)
[2023-11-01] MEDS: diazePAM 5 MG TABLET PO PRN (22:44)
[2023-11-01] MEDS: MELATONIN 3 MG TAB PO SCH (22:44)
[2023-11-02] MEDS: ALBUTEROL HFA 8 GM INHALER INH SCH (07:12)
[2023-11-02 07:40] LABS: Calcium 8.9 mg/dl (8.6-10.3); Creatinine Clr Calc Pharmacy 112.4 ml/min; Est GFR (African American) 102.7 ml/min; Est GFR (Non-African American) 88.6 ml/min; Potassium 3.5 mmol/L (3.5-5.1)
[2023-11-02 07:58] LABS: Hematocrit (blood only) 52.7 % (42.0-52.0); Hemoglobin 17.7 g/dl (14.0-18.0); Mean Corpuscular Hemoglobin 28.3 pg (25.0-34.0); Mean Corpuscular Hgb Conc 33.6 g/dL (32.0-36.0); Mean Corpuscular Volume 84.3 fL (80.0-100.0); Mean Platelet Volume 10.9 fL (9.4-12.4); Platelet Count 232 K/uL (130-400); RDW Coefficient of Variation 13.1 % (11.5-14.5); RDW Standard Deviation 40.5 fL (36.4-46.3); Red Blood Count 6.25 M/uL (4.70-6.10); White Blood Count 13.84 K/ul (4.8-10.8)
[2023-11-02] MEDS: FLUTICASONE/VILANTEROL 100/25MCG 14 PUFFS/INHALER INH SCH (08:44)
[2023-11-02] MEDS: APIXABAN 2.5 MG TAB PO SCH (08:45)
[2023-11-02] MEDS: FLUTICASONE PROPIONATE NA SPR 16 GM BTL SCH (08:45)
[2023-11-02] MEDS: FAMOTIDINE 20 MG TAB PO SCH (08:46)
[2023-11-02] MEDS: ACETAMINOPHEN 325 MG TAB PO PRN (08:46)
[2023-11-02] MEDS: guaiFENesin 600 MG TABCR PO SCH (08:46)
[2023-11-02] MEDS: BENZONATATE 100 MG CAPSULE PO SCH ×2 (08:46→13:04)
[2023-11-02] MEDS: MONTELUKAST SODIUM 10 MG TABLET PO SCH (08:47)
[2023-11-02] MEDS: MECLIZINE 12.5 MG TAB PO SCH ×2 (08:47→13:04)
[2023-11-02] MEDS: METOPROLOL SUCC 50MG EXT REL TAB PO SCH (08:47)
[2023-11-02] MEDS: VALSARTAN/SACUBITRIL 103/97MG TAB PO SCH (08:48)
[2023-11-02] MEDS ORDERED: SUMAtriptan succinate 6 MG/0.5 ML VIAL SQ STA (10:14)
[2023-11-02] MEDS ORDERED: ALBUTEROL HFA 8 GM INHALER INH PRN (10:27)
[2023-11-02] MEDS: dexAMETHasone 6 MG in SYRINGE 0 ML IV SCH (13:04)
--- NOTE | 2023-11-03 10:02 | Discharge Summary ---
Date of Service date of admission - October 27, 2023 date of discharge - November 02, 2023 Admission HPI Per Admitting Provider 57 y/o male with a PMHx of HFrEF, asthma, a. fib, RLS, and difficulty sleeping here for evaluation of heart racing. Patient with intermittent bouts of elevated heart rates for the past few weeks. 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 Ventura sending him readings from his smart watch. Neptali Reis PA-C was in contact with patient and recommended started metoprolol. Patient has not yet started that medication as he picked it up yesterday. 10/26 patient began to feel unwell. Rapid covid test was negative at that time. Patient felt worse this morning - headache, sore throat, cough, chest pain, shortness of breath, nauseous, heart racing. He was brought by his to the ED. In the ED HDS with tachycardia - irregularly irregular. Afebrile without tachypnea. High sensitivity troponin negative, EKG consistent with a. fib with RVR, labs relatively unremarkable. Respiratory panel positive for Covid-19. CXR without acute findings CT Head without acute findings Dr. Cage discussed the case with Dr. Vega. Patient given metoprolol succinate 50 mg as this was the medication he was to start outpatient. In addition he was given 5 mg Lopressor IV without significant improvement in rate control. Next step would be dig load. Patient also nauseous with a headache - treated with Zofran, then treated with Tylenol, prochlorperazine, and Benadryl. Upon my interview, patient much more comfortable after being able to take a nap. Reports continued headache (improved to 4/10), cough, congestion, and sore throat. Nausea has much improved. Patient would like to eat something. No fevers or chills. Patient would be interested in Paxlovid if it is an option. Principal Diagnosis 1. COVID-19 infection 2. A.fib with RVR 3. Chronic systolic CHF / cardiomyopathy 4. Acute vertigo - 2nd to #1 5. Status migraine headache 6. Asthma with exacerbation - resolving 7. 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 Discharge Exam gen - again looks better today; NAD; nontoxic in appearance mouth - MMM neck - no JVD eyes - no nystagmus heart - irregularly irregular, s1 s2, no murmur lungs - CTA b/l; no rales, no wheeze, no increased work of breathing abd - soft NT ND BS+ ext - no edema, pulses 2+ b/l psych - a/o x 3 neuro - gait w/o ataxia; strength 5/5 x 4 exts Discharge Data Allergies Allergy/AdvReac Type Severity Reaction Status Date / Time ceftriaxone [From Rocephin] Allergy Intermediate Hives Verified 10/27/23 13:15 amoxicillin Allergy Unknown RX AN Verified 10/27/23 13:15 INFANT clavulanic acid Allergy Unknown RX AN Verified 10/27/23 13:15 erythromycin base Allergy Unknown REACTION Verified 10/27/23 13:15 TO PCN AND AUGMENTIN Penicillins Allergy Unknown REACTION Verified 10/27/23 13:15 AN INFANT - UNKNOWN Tetracyclines Allergy Unknown VOMITING Verified 10/27/23 13:15 AND RASH banana AdvReac Mild Vomiting Unverified 10/27/23 13:15 hydromorphone [From Dilaudid] AdvReac Mild Vomiting Verified 10/27/23 13:15 Consultations [facility] [place] Cardiology Physical therapy Ordered Studies Chest X-Ray 10/27/23 09:06 XR chest 1V portable HISTORY: Shortness of breath. Atypical chest pain. COMPARISON: Chest 01/05/2023. FINDINGS: No pneumothorax. No pleural effusions. The heart remains enlarged. No focal lung consolidations to suggest a pneumonia. No evidence for pulmonary edema. No acute fractures identified. IMPRESSION: Stable cardiomegaly. Otherwise, no acute process within the chest. ACT 112: Negative or not required by law. Electronically signed by: Adrian Willis M.D. 10/27/2023 9:[address] 10/27/23 15:12 CT head/brain wo con CLINICAL HISTORY: headache Technique: Contiguous axial CT images of the head were acquired from the base of the skull to the vertex without intravenous contrast administration. Images were viewed in brain, subdural and bone windows. Automated dose lowering techniques and/or adjustment according to patient size were utilized for this exam. Comparison: Comparison is made to CT head 01/30/2023 Findings: The ventricles, basal cisterns, and cerebral sulci are normal. There is no acute intracranial hemorrhage or evidence of acute territorial infarction. Neither mass effect, shift of the midline structures, nor abnormal extra-axial fluid collections are shown. Imaged portions of the paranasal sinuses and mastoid air cells are clear. The orbits appear normal. There are no acute fractures of the calvaria or scalp swelling. Impression: No acute intracranial hemorrhage, no evidence of acute territorial infarction or other acute intracranial disease process. ACT 112: Negative or not required by law. Electronically signed by: Elkin Moran M.D. 10/27/2023 3:32 PM Chest X-Ray 10/29/23 13:01 SINGLE VIEW CHEST CLINICAL HISTORY: Chest tightness. Covid. FINDINGS: An AP, portable, upright chest radiograph is compared to study dated 10/27/2023. Correlation is made with chest CT dated 12/02/2022. The heart is enlarged. The pulmonary vasculature is not congested. There is mild chronic elevation of the right hemidiaphragm with dependent atelectasis. No airspace consolidation or large pleural effusion is identified. No pneumothorax is seen. The bony thorax is grossly intact. IMPRESSION: Cardiomegaly with no acute cardiopulmonary abnormality. ACT 112: Negative or not required by law. Electronically signed by: Reji Lauren M.D. 10/29/2023 4:04 PM Brain MRI 10/30/23 17:02 Exam(s): MRI HEAD Without Contrast EXAM: MR Head Without Intravenous Contrast CLINICAL HISTORY: Reason for exam: COVID+, vertigo; eval CVA. TECHNIQUE: Magnetic resonance images of the head/brain without intravenous contrast in multiple planes. COMPARISON: Comparison made to prior head CT from October 27, 2023. FINDINGS: Brain: Minimal nonspecific white matter changes. No mass. No hemorrhage. No acute infarct. The flow voids at the base of the brain are intact. There are 10.7 mm of right cerebellar tonsillar ectopia and 4.2 mm of left cerebellar tonsillar ectopia. Ventricles: Unremarkable. No ventriculomegaly. Bones/joints: Hyperostosis frontalis interna. No acute fracture. Sinuses: Chronic left sphenoid, maxillary and ethmoid sinusitis. No acute sinusitis. Mastoid air cells: Unremarkable as visualized. No mastoid effusion. Orbits: Unremarkable as visualized. IMPRESSION: No evidence of acute intracranial pathology. Minimal nonspecific white matter changes. Electronically signed by: Leydi Mitchell MD 10/30/23 22:57 PM Hospital Course (1) COVID-19: IMPROVED/resolving by time of discharge. CXR x 2 without pneumonia. O2 sats were wnl the entire stay. He did have a mild asthma exacerbation from his COVID infection. He received IV dexamethasone while here for his asthma flare. 5 days of dexamethasone were given throughout his stay, and he will complete 5 more days of such upon discharge home. He was treated with a 5-day course of Paxlovid; the entire course was completed prior to discharge. His stay was complicated by acute vertigo - likely vestibular neuronitis from COVID-19 infection. MRI brain was negative for acute CVA. In addition, he had a status migraine headache for much of the stay, requiring multiple medications for symptomatic relief. Labs and vitals were stable while hospitalized. He had a mild leukocytosis on CBC prior to discharge but this was likely due to his steroid therapy. (2) Atrial fibrillation with rapid ventricular response: Patient with known history of atrial fibrillation. Was previously cardioverted on 02/05/[address] Velasquez Ventura which maintained NSR for about 7 months. Has been taking coreg 25mg BID and Eliquis BID at home. Presented this admission with uncontrolled, rapid a.fib -- likely due to physical stress of his COVID illness. He was seen in consult by [facility] [place] Cardiology during the stay. Metoprolol succinate 50mg daily was added to his twice daily coreg. He was also loaded with IV digoxin on hospital day #1 but this was not continued thereafter. He was continued on his usual Eliquis albeit at a reduced dose of 2.5mg BID as Paxlovid interacts with Eliquis. TSH, K, magnesium were all wnl. With the above his rate control improved. Towards the conclusion of the stay his metoprolol succinate was increased to 50mg BID and his coreg was weaned off. With such his rates were <100 at rest and about 110-120 with activity. He will need to remain on a reduced dose of Eliquis 2.5mg BID until 11/05/23 at which time he can resume his usual Eliquis dose of 5mg BID. He will continue metoprolol succinate 50mg BID. Coreg has been stopped. (3) Vertigo: Likely due to vestibular neuronitis from COVID infection. Theoretically a migraine could cause vertigo (Vertebral-basilar migraine) but doubt such in his case. MRI brain WITHOUT acute CVA, ICH, etc Required meclizine the majority of his stay. He was prescribed meclizine 12.5mg tablets and was asked to take scheduled for a few days post-discharge, then use prn thereafter. (4) Headache: Migraine vs tension-migraine - all in the setting of COVID-19 infection. No symptoms or signs on exam to suggest meningitis. Headache had been refractory to steroids, tramadol, fioricet, etc. in the early part of his stay. He was ultimately given mag sulfate 1gm IV x 1 + depakote 500mg IV x 1 + imitrex both PO & Subcu for his refractory headache. Headache finally went down to less than 3/10 on pain scale prior to discharge. Hopefully his 5-day steroid course will extinguish any remaining headache. He was given a small amount of fioricet to use on prn basis at home. (5) Asthma: Patient with mild flare due to COVID infection. s/p 5 days of IV dexamethasone 6mg. Will complete 5 more days of dexamethasone 6mg PO daily upon discharge home. Cont albuterol qid prn. Cont Advair. Cont montelukast and fluticasone nasal. Cont Flutter valve, incentive spirometer, and tessalon prn. o2 sats were stable in room air while here. (6) Cardiomyopathy: Patient with history of non-ischemic cardiomyopathy (presumed, has not had heart catheterization). Treated with Entresto, dapagliflozin, furosemide, and beta blockade. ECHO 08/15 - EF 30-35%, dilated cardiomyopathy. Was compensated on exam the entire stay, and CXR x 2 did not show pulmonary edema. Again, coreg was weaned off and metoprolol succinate 50mg BID was prescribed at discharge in selene. (7) Restless leg syndrome: Stable on diazepam 5 mg QHS, cyclobenzaprine 10 mg, melatonin 5 mg QHS. (8) Chest pain: Suspect bronchoconstriction from his asthma was the culprit. Pain/tightness was resolved by discharge. no evidence of ACS. no evidence of pneumonia. doubt PE - is on chronic anticoagulation. o2 sats were normal the entire hospitalization. Multiple HS troponins were negative. (9) Dyspnea: 2nd to rapid a.fib + COVID/asthma. improved/resolved. (10) Cerebellar tonsillar ectopia: Seen incidentally on MRI brain. No treatment needed at this time. Patient was told about this incidental finding. Total Time Total Time Spent Total Time Spent (In Minutes): 50 Discharge Plan Discharge Items Patient Disposition: Home - Self-Care Reason For Visit: RAPID A FIB Discharge Diagnosis: 1. COVID-19 infection 2. Rapid a.fib - improved 3. Severe vertigo - improving; 2nd to #1; MRI brain negative for stroke 4. Headache / Migraine - improving 5. Asthma exacerbation - due to #1 6. Low lying cerebellar "tonsils" on MRI brain - no treatment needed for this Activity: As commented below Activity Comment: light activities for a few days then gradually increase as tolerated Exercise/Sports: Wait until after follow-up appointment Non-emergency contact: Primary Care Provider and [employer] Call non-emergency contact if: you have any medication questions and your symptoms worsen Follow-up/Referrals: Uma Anderson PA-C [Physician Analysis Evaluator] - 11/06/23 (a.fib follow-up) Brianna Cornell DO [Primary Care Provider] - 11/09/23 11:00 am (Will see Dr Lyles) Diet: Heart Healthy Fluids: 1800ml (7 cups) Addtl Attending Provider Instructions: Mr Balbuena, You were hospitalized due to COVID-19 infection and rapid atrial fibrillation (a .fib). Fortunately you did not have pneumonia from the COVID-19. Chest x-rays x 2 were both negative for fluid or pneumonia. Your stay was complicated by severe headache/migraine as well as vertigo. Migraine headaches are often triggered by illness. A brain MRI was obtained due to the persistent vertigo and was negative for stroke, bleeding, tumor, etc. Thus, the vertigo is likely coming from an inner ear infection from your COVID- 19. [facility] Cardiology saw you in consult for your a.fib and made recommendations for better control of such. Your COVID-19 infection as well as the vertigo, headaches, etc were treated with various medicines including Paxlovid (you completed the full 5-day course), dexamethasone steroid, meclizine (for vertigo), various medications for your hea dache, etc. All symptoms gradually improved while here. You were seen by physical therapy and you did well with them. Rehab was not recommended. Recommendations - 1. steroids for headache, COVID-19 infection, and asthma flare-up - * dexamethasone 6mg once daily x 5 days, start 11/03/23; take with food * steroids can cause fluid retention/weight gain; thus, check your weight every day diligently and take furosemide as needed 2. for vertigo - take as follows - * take meclizine 12.5mg upon return home this afternoon, then take 12.5mg at bedtime tonight * take meclizine 12.5mg tomorrow morning and 12.5mg tomorrow evening * then take meclizine 12.5mg every 6 hours as needed for vertigo thereafter starting 11/04/23 3. for nausea/vomiting - * ondansetron 4mg every 6 hours as needed 4. for severe headache - * fioricet ([id number]) capsule - 1 every 6 hours as needed * do not drive while taking this medication * do not drink alcohol while taking this medication * do not take this medication with your muscle relaxers (diazepam, cyclobenzaprine) 5. Please plan to stay at home and rest today, tomorrow, and Thursday. This is the remainder of your "isolation" period. On of this week - if you are feeling well, all symptoms are improved, and you have had no fever - you can discontinue isolation at that time. Please wear a mask in public until your cough is mostly resolved. 6. You likely have another 1-2 weeks of recovery ahead. Focus on good nutrition, rest/sleep, etc. Light activities only during your recovery period. The last symptoms to likely go away will be the fatigue and cough. 7. For a.fib - * DISCONTINUE carvedilol * START metoprolol succinate 50mg TWICE DAILY; first dose TONIGHT 8. Resume your normal Entresto dose TONIGHT 9. Eliquis instructions - * take Eliquis 2.5mg TONIGHT * take Eliquis 2.5mg twice daily TOMORROW (11/03/23) * take Eliquis 2.5mg twice daily on 11/04/23 * THEN resume your normal Eliquis dosing of 5mg twice daily on 11/05/23 Follow-up - see separate section Return to [facility] if - * you have worsening shortness of breath * you have chest pains that don't respond to your usual inhalers * you have oxygen levels with your finger oximeter less than 90% * you have severe vomiting that is not responding to your nausea medication * you have severe vertigo that is not responding to your vertigo medication * any other concerns It was our pleasure caring for you! Pending Studies at Discharge: No Stand-Alone Forms: My [facility], Work/School Release, Smoking Cessation Medications and DC Order Prescriptions: New meclizine 12.5 mg Tablet 12.5 mg PO TID PRN (Reason: vertigo/spinning) Qty: 20 0RF benzonatate 100 mg Capsule 100 mg PO TID PRN (Reason: cough) Qty: 30 0RF Eliquis 2.5 mg tablet 2.5 mg PO BID Qty: 6 0RF Rx Instructions: first dose PM of 11/02/23. dexamethasone 6 mg tablet 6 mg PO DAILY 5 Days Qty: 5 0RF Rx Instructions: start 11/03/23; take with food. ondansetron 4 mg tablet,disintegrating 4 mg PO Q6H PRN (Reason: nausea and vomiting) Qty: 14 0RF [id number] [Fioricet] 50-300-40 mg capsule 1 cap PO Q6H PRN (Reason: headache/migraine) Qty: 7 0RF Continued cyclobenzaprine 10 mg tablet 10 mg PO HS Qty: 30 0RF montelukast 10 mg tablet 10 mg PO QAM ascorbate calcium (vitamin C) 500 mg tablet 500 mg PO DAILY cholecalciferol (vitamin D3) 400 unit capsule 400 units PO DAILY diazepam 5 mg tablet 5 mg PO HS melatonin 5 mg capsule 5 mg PO HS Entresto 97-103 mg tablet 1 tab PO BID Qty: 180 3RF fluticasone propion-salmeterol [Advair Diskus] 500-50 mcg/dose blister with device 1 inh inhalation BID Farxiga 10 mg tablet 10 mg PO DAILY Qty: 30 11RF Calcium Magnesium 500 mg calcium -250 mg Tablet 3 tab PO DAILY multivitamin Tablet 1 tab PO DAILY famotidine [Pepcid] 20 mg Tablet 20 mg PO BID furosemide [Lasix] 20 mg tablet 20 mg PO DAILY PRN (Reason: Weight Gain) fluticasone propionate 50 mcg/actuation spray,suspension 1 spray INTRANASAL DAILY Changed metoprolol succinate 50 mg tablet extended release 24 hr 50 mg PO BID Qty: 90 3RF Rx Instructions: aS OF 10/27/23, PT HASN'T STARTED YET albuterol sulfate 90 mcg/actuation aerosol powdr breath activated 2 puffs INH Q4H PRN (Reason: Shortness Of Breath Or Wheezing or cough) Qty: 1 0RF Patient Comments: 1 inh INH as needed; Rx Instructions: use with spacer device Held Eliquis 5 mg tablet 5 mg PO BID Qty: 180 3RF Hold Instructions: Resume on 11/05/23. Discontinued carvedilol 25 mg tablet 25 mg PO BID Discharge Orders: Discharge Order (Routine); Ordered 11/02/23 Ordered By: Torsten Mac/Other Patient Handouts: Using an Inhaler with a Spacer Admission Data Admit Date/Time: 10/29/23 18:49 Attending Provider: Torsten Rangel Admit Provider: Torsten Rangel Primary Care Provider: Brianna Cornell Other Providers: Torsten Junior; Jhonny Vega Other Interventions: Discharge Summary Assessment (RN) Last Done: 11/02/23 13:29 Coding Level of Care Code 92576 INP/OBS DISCH >30 MIN Diagnoses COVID-19 U07.1 Atrial fibrillation with rapid ventricular response I48.91 Vertigo R42 Headache R51 Asthma J45.909 Dilated cardiomyopathy I42.0 Cardiomyopathy type: dilated Restless leg syndrome G25.81 Chest pain R07.9 Dyspnea R06.00 Cerebellar tonsillar ectopia Q04.8
== END 2023-11-02 14:21 | disposition home or self-care (01) | DRG 178 ==
LOC: EDINP 08:43 → ED 08:43 → SUATTDRO 16:29 → 2S 18:54
DX: G43.909 Migraine, unspecified, not intractable, without status migrainosus; Z88.1 Allergy status to other antibiotic agents; G25.81 Restless legs syndrome; I50.22 Chronic systolic (congestive) heart failure; Z86.16 Personal history of COVID-19; Q04.8 Other specified congenital malformations of brain; I11.0 Hypertensive heart disease with heart failure; G44.209 Tension-type headache, unspecified, not intractable; I42.8 Other cardiomyopathies; I48.0 Paroxysmal atrial fibrillation; H81.20 Vestibular neuronitis, unspecified ear; U07.1 COVID-19; J45.901 Unspecified asthma with (acute) exacerbation

== ENCOUNTER 2023-11-13 02:23 | Observation (INO) ==
[2023-11-13] MEDS ORDERED: SODIUM CHLORIDE 0.9% 500 ML IV ONE (02:41)
[2023-11-13] MEDS ORDERED: METOPROLOL TARTRATE 1 MG/ML VIAL IV STA (03:13)
[2023-11-13 03:17] LABS: Basophils # (auto) 0.01 K/uL (0.00-0.20); Basophils % (auto) 0.1 %; Eosinophils # (auto) 0.03 K/uL (0.00-0.50); Eosinophils % (auto) 0.3 %; Hematocrit (blood only) 51.3 % (42.0-52.0); Immature Granulocytes # (auto) 0.07 K/uL (0.01-0.20); Immature Granulocytes % (auto) 0.6 %; Lymphocytes # (auto) 0.74 K/uL (1.20-3.40); Lymphocytes % (auto) 6.3 %; Mean Corpuscular Hemoglobin 28.1 pg (25.0-34.0); Mean Corpuscular Hgb Conc 33.1 g/dL (32.0-36.0); Mean Corpuscular Volume 84.9 fL (80.0-100.0); Mean Platelet Volume 11.1 fL (9.4-12.4); Monocytes # (auto) 0.68 K/uL (0.11-0.59); Monocytes % (auto) 5.8 %; Neutrophils # (auto) 10.28 K/uL (1.40-6.50); Neutrophils % (auto) 86.9 %; Platelet Count 207 K/uL (130-400); RDW Coefficient of Variation 13.6 % (11.5-14.5); RDW Standard Deviation 41.9 fL (36.4-46.3); Red Blood Count 6.04 M/uL (4.70-6.10); White Blood Count 11.81 K/ul (4.8-10.8)
[2023-11-13 03:25] LABS: Base Excess VBG 1.1 mEq/L; HCO3 VBG 25 mmol/L; Oxygen Saturation VBG 88.3 %; PCO2 VBG 37 mmHg (38-50); PO2 VBG 56 mmHg; pH VBG 7.44 (7.36-7.41)
[2023-11-13 03:32] LABS: Albumin Globulin Ratio 1.2 (0.9-2); Albumin Level 3.7 gm/dl (3.4-5.0); BUN Creatinine Ratio 27.2 (10-20); Bilirubin,Total 0.4 mg/dl (0.2-1.0); Calcium 8.8 mg/dl (8.6-10.3); Creatinine Clr Calc Pharmacy 108.4 ml/min; Est GFR (African American) 108.1 ml/min; Est GFR (Non-African American) 93.3 ml/min; Magnesium 2.4 mg/dl (1.7-2.4); Potassium 4.3 mmol/L (3.5-5.1); Total Protein 6.7 gm/dl (6.0-8.3)
[2023-11-13 03:38] LABS: Troponin I High Sensitivity 16.9 pg/ml (0-20)
[2023-11-13 04:00] LABS: INR 0.9 (0.9-1.1); Partial Thromboplastin Time 28 Seconds (21-31); Prothrombin Time 10.3 Seconds (9.0-12.0)
--- NOTE | 2023-11-13 05:56 | History & Physical Report ---
Date of Service November 13, 2023 Assessment & Plan (1) Atrial fibrillation with rapid ventricular response: Plan: Patient is a 57-year-old male with a past medical history of cerebellar tonsillar being, nonischemic cardiomyopathy, atrial fibrillation, hypertension, asthma, HFrEF, and chronic dyspnea who presents to the hospital for evaluation of dyspnea. Patient found to be in A-fib with RVR. -Admit to telemetry, telemetry indication being A-fib with RVR -5 mg of IV metoprolol tartrate given in ED with some improvement in rate, as needed metoprolol pushes available -Consult cardiology, appreciate recommendations. Patient has been on regular dose Eliquis for the past 10 days and should be adequately anticoagulated for possible cardioversion in house -Magnesium goal greater than 2, potassium goal greater than 4 -Continue Eliquis 5 mg twice daily (2) Dyspnea: Plan: - Likely exacerbation of chronic dyspnea due to A-fib with RVR and recent COVID- 19 illness as well as history of asthma -Without hypoxia but with mild exacerbation, gave dose of methylprednisolone in the ED -Austyn Chavez for cough (3) Hypertension: Plan: - Continue metoprolol, Entresto (4) HFrEF (heart failure with reduced ejection fraction): Plan: - Continue metoprolol, Entresto, Farxiga -Hold Lasix (5) History of COVID-19: Plan: -Recent diagnosis of COVID-19 on last admission, patient completed Paxlovid -Does not require isolation room at this time (6) Asthma: Plan: - Continue inhalers and montelukast -Solu-Medrol for possible exacerbation as above Plan Disposition: Admit to telemetry for rate control/possible cardioversion Diet: N.p.o. for possible cardioversion DVT prophylaxis: Eliquis CODE STATUS: Full code History of Present Illness Chief Complaint: Dyspnea Primary Care Provider: Brianna Cornell DO Patient is a 57-year-old male with a past medical history of cerebellar tonsillar being, nonischemic cardiomyopathy, atrial fibrillation, hypertension, asthma, HFrEF, and chronic dyspnea who presents to the hospital for evaluation of dyspnea. Patient has long history of subjective dyspnea without hypoxia and it seems over the past day or so, his dyspnea has progressively gotten worse so he came to the emergency room for evaluation. He denies any nausea, vomiting, chest pain, or headache. Of note, he was recently diagnosed with COVID-19 on 10/27/2023 and was placed on Paxil bid. While on Paxil bid he felt improvement in his symptoms. At that time, he also was in A-fib with RVR secondary to the stress of COVID. While on Paxlovid his Eliquis dose was reduced to 2.5 mg twice daily and was reverted once the Paxlovid dose was completed. He had follow-up with his gis analyst developer on 11/06/2023 who recommended a cardioversion which is currently scheduled for December 02. Otherwise without any complaints at this time. ED course: Patient brought back and evaluated by provider. Labs are significant for white count of 11.8, VBG pH of 7.4, lactate of 3.3, BNP of 439. Chest x-ray per my interpretation shows cardiomegaly without acute pulmonary edema. Patient was given a 500 cc bolus of normal saline and one 5 mg IV dose of metoprolol. His rate did improved to the low 100s. A 40 mg dose of IV Solu-Medrol was also given. The hospitalist service was then consulted for further recommendations and treatment. Allergies Allergy/AdvReac Type Severity Reaction Status Date / Time Tetracyclines Allergy Severe VOMITING Verified 11/13/23 02:43 AND RASH ceftriaxone [From Rocephin] Allergy Intermediate Hives Verified 11/13/23 02:43 amoxicillin Allergy Unknown RX AN Verified 11/13/23 02:43 INFANT clavulanic acid Allergy Unknown RX AN Verified 11/13/23 02:43 erythromycin base Allergy Unknown REACTION Verified 11/13/23 02:43 TO PCN AND AUGMENTIN Penicillins Allergy Unknown REACTION Verified 11/13/23 02:43 AN - UNKNOWN banana AdvReac Intermediate Vomiting Verified 11/13/23 02:43 hydromorphone [From Dilaudid] AdvReac Intermediate Vomiting Verified 11/13/23 02:43 Home Medications Medication Instructions Recorded Confirmed Type ascorbate calcium (vitamin C) 500 500 mg PO DAILY 08/17/19 11/13/23 History mg tablet cholecalciferol (vitamin D3) 10 400 units PO DAILY 08/17/19 11/13/23 History mcg (400 unit) capsule cyclobenzaprine 10 mg tablet 10 mg PO HS #30 tabs 08/17/19 11/13/23 Rx montelukast 10 mg tablet 10 mg PO QAM 08/17/19 11/13/23 History diazepam 5 mg tablet 5 mg PO HS 09/03/22 11/13/23 History melatonin 5 mg capsule 5 mg PO HS 09/03/22 11/13/23 History calcium carb-Ca gluc 500 mg 3 tab PO DAILY 01/05/23 11/13/23 History calcium-magnesium ox-Mg gluc 250 mg tablet (Calcium Magnesium) multivitamin 1 tab PO DAILY 01/05/23 11/13/23 History apixaban 5 mg tablet (Eliquis) 5 mg PO BID #180 tabs 01/22/23 11/13/23 Rx famotidine 20 mg tablet (Pepcid) 20 mg PO BID 01/30/23 11/13/23 History furosemide 20 mg tablet (Lasix) 20 mg PO DAILY PRN Weight Gain 01/30/23 11/13/23 History fluticasone 500 mcg-salmeterol 50 1 inh inhalation BID 02/19/23 11/13/23 History mcg/dose blistr powdr for inhalation (Advair Diskus) sacubitril 97 mg-valsartan 103 mg 1 tab PO BID #180 tabs 03/10/23 11/13/23 Rx tablet (Entresto) dapagliflozin propanediol 10 mg 10 mg PO DAILY #30 tabs 08/19/23 11/13/23 Rx tablet (Farxiga) fluticasone propionate 50 1 spray intranasal DAILY 10/27/23 11/13/23 History mcg/actuation nasal spray,suspension albuterol sulfate 90 mcg/actuation 2 puffs inhalation Q4H PRN 11/02/23 11/13/23 Rx breath activated powder inhaler Shortness Of Breath Or Wheezing or cough #1 ea benzonatate 100 mg capsule 100 mg PO TID PRN cough #30 caps 11/02/23 11/13/23 Rx aidhnoutnb-sdjdsksgrbkmz-mujxqsar 1 cap PO Q6H PRN headache/migraine 11/02/23 11/13/23 Rx 50 mg-300 mg-40 mg capsule #7 caps (Fioricet) meclizine 12.5 mg tablet 12.5 mg PO TID PRN 11/02/23 11/13/23 Rx vertigo/spinning #20 tabs ondansetron 4 mg disintegrating 4 mg PO Q6H PRN nausea and 11/02/23 11/13/23 Rx tablet vomiting #14 tabs metoprolol succinate 50 mg 200 mg (4 x 50 mg) PO DAILY 30 11/14/23 Rx tablet,extended release 24 hr days #120 tabs oxymetazoline 0.05 % nasal spray 1 spray TG BID 3 days #22 mL 11/14/23 Rx (Nasal [place] (oxymetazoline)) sulfamethoxazole 800 1 tab PO Q12 6 days #12 tabs 11/14/23 Rx mg-trimethoprim 160 mg tablet (Bactrim DS) Past Med/Surg History Medical History (Updated 11/14/23 @ 11:01 by Brianna Cornell DO) Acute bacterial rhinosinusitis HFrEF (heart failure with reduced ejection fraction) Cardiomyopathy Migraine Atrial fibrillation s/p cardioversion 01/2023 [place]. on Eliquis. Follows with Dr. Rios. 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 DETAILS Social History Smoking Status: Never smoker Cigarettes Per Day: USED TO SMOKE CIGARS "ONCE IN A WHILE" NOT ANY FOR YEARS; Second Hand Exposure: No; Do You Dip or Chew Tobacco: No; Hx Alcohol Use: No Hx Substance Use: No Preferred Language: Georgian Communication Ability: Effective Warehouse Team Member Required: No Beliefs That Will Affect Care: None Current Living Situation: Spouse and Family current occupation: [employer] Feels Safe at Home: Yes Assistive Devices: None Review of Systems Review of Systems: All systems reviewed & are unremarkable except as noted in HPI & below Physical Exam Constitutional: WD/WN, vitals as above Eyes: + anicteric sclerae Neck: trachea midline, no thyromegaly Respiratory: normal respiratory effort, lungs clear to auscultation frequent cough Cardiovascular: Rate/Rhythm: + tachycardic and + irregularly irregular Chest (Breasts): normal inspection/palpation of breasts Gastrointestinal (Abdomen): normal bowel sounds, soft, nontender, no hepatosplenomegaly Musculoskeletal: Head/Neck/Chest: normocephalic and head atraumatic Skin: no rashes, warm and dry Neurologic: moves all extremities Psychiatric: A+Ox3, euthymic affect Results & Data Results & Data Vital Signs (Past 12 Hours) Vital Signs Temp Pulse Pulse Resp BP BP Pulse Ox 11/13/23 05:28 112 H 11/13/23 05:00 110 H 16 116/83 96 11/13/23 04:24 128 H 18 105/67 94 11/13/23 04:00 128 H 22 124/86 94 11/13/23 02:44 11/13/23 02:44 142 H 20 119/76 95 11/13/23 02:44 11/13/23 02:36 136 H 11/13/23 02:26 37 C 69 20 99/63 L 98 O2 Del Method 11/13/23 05:28 11/13/23 05:00 Room Air 11/13/23 04:24 Room Air 11/13/23 04:00 Room Air 11/13/23 02:44 Room Air 11/13/23 02:44 Room Air 11/13/23 02:44 Room Air 11/13/23 02:36 11/13/23 02:26 Room Air Supervising Physician Co-Signing Physician Notes Attending addendum: I have physically seen this patient, have supervised the medical residents activities, and agree with the H&P unless as otherwise noted. Assessment and Plan: Atrial fibrillation with RVR/hypertension/HFrEF- The patient will be admitted to telemetry for serial cardiac enzymes, serial EKG's, cardiac rhythm monitoring and a 2-D echocardiogram with Dopplers. Continue Eliquis 5 mg p.o. twice daily Target potassium greater than 4, and magnesium greater than 2 Given Lopressor 5 mg IV in the ED with some improvement to control heart rate Lopressor 5 mg IV every 4 hours as needed for heart rate greater than 110 Continue metoprolol succinate 200 mg daily, Entresto 97-103 p.o. twice daily and Farxiga Physiologic stress of recent COVID-19 infection may be in part responsible as a trigger, as patient does still have a mildly productive cough Cardiology consult COPD with mild exacerbation- May be a component of residual inflammation due to recent COVID-19 infection Status post methylprednisolone IV in ED Methylprednisolone 40 mg IV every 12 hours Continue usual inhalers and montelukast Remaining orders and notations as noted (3) Hypertension Hypertension type: primary hypertension Qualified Code(s): I10 - Essential (primary) hypertension
--- OUTSIDE RECORDS SUMMARY | 2023-11-13 06:23 | External Medical Summary | Continuity of Care Document ---
Author Name Unknown Organization [facility] [address] [place] [id number] Care Team Providers Care Band Edger Name Role Phone Brianna Cornell Primary Care Physician [phone] Encounter [facility] [id number] Date(s): 11/09/23 - 11/09/[address] [facility] 0 [facility] [address] [address] [phone] Encounter Diagnosis Body mass index [BMI] 28.0-28.9, adult(Discharge Diagnosis) - 11/09/23 Cough(Discharge Diagnosis) - 11/09/23 Hospital discharge follow-up(Discharge Diagnosis) - 11/09/23 Insomnia(Discharge Diagnosis) - 11/09/23 Muscle spasm(Discharge Diagnosis) - 11/09/23 Atrial fibrillation(Discharge Diagnosis) - 11/09/23 COVID(Discharge Diagnosis) - 11/09/23 Rash of hand(Discharge Diagnosis) - 11/09/23 Discharge Disposition: Home or Self Care [facility] Allergies, Adverse Reactions, Alerts Substance Reaction Severity Status cefTRIAXone hives Active erythromycin Active penicillins Active Keflex unknown Active Rocephin rash Active bananas Vomiting Active Immunizations Given and Recorded Vaccine Date [...] information-source unspecified 2Result Comment: [10/01/2015] Got at [facility] Medications Advair Diskus 500 mcg-50 mcg Start: 08/26/22 9:44:00 EDT, See Instructions, Disp# 60 blister, Refills: 5, inhale 1 dose by mouthtwice a day, Pharmacy: [id number] Start Date: 08/26/22 Status: Ordered albuterol CFC free 90 mcg/inh MDI Start: 11/21/22 8:38:00 EST, 4 puff, inhaled, qid, Disp# 2 each, Refills: 3, PRN: as needed for wheezing, Pharmacy: [email or web address] #[id number] Start Date: 11/21/22 Stop Date: 03/21/23 Status: Ordered Alina 24 Hour Allergy oral tablet Start: 08/26/22 9:41:00 EDT Start Date: 08/26/22 Status: Ordered Calcium and Magnesium oral tablet Start: 10/31/15 10:11:00, 1 tab, PO, qhs Start Date: 10/31/15 Status: Ordered cyclobenzaprine 10 mg oral tablet Start: 11/09/23 12:10:00 EST, 1 tab, PO, qhs, Disp# 30 tab, Refills: 0, PRN: as needed for spasm, Pharmacy: [email or web address] #[id number] Start Date: 11/09/23 Status: Ordered diazePAM 5 mg oral tablet Start: 11/09/23 12:59:00 EST, 1 tab, PO, qhs, Disp# 30 tab, Refills: 0, Note to Pharmacy: PDMP verified, PRN: sleep, Pharmacy: [email or web address] #[id number] Start Date: 11/09/23 Status: Ordered Eliquis 5 mg oral tablet [...] each nostril once daily, Pharmacy: [facility] #[id number] Start Date: 03/03/23 Status: Ordered inhaler spacer Start: 02/01/18 14:25:00, See Instructions, Disp# 1 each, UD, Pharmacy: [id number] Start Date: 02/01/18 Status: Ordered Lasix 20 mg oral tablet Start: 10/08/23 9:37:00 EST, 1 tab, PO, Daily Start Date: 10/08/23 Status: Ordered Mag-SR with Calcium Start: 05/28/23 15:39:00 EDT, Daily Start Date: 05/28/23 Status: Ordered melatonin 5 mg oral tablet Start: 08/13/18 16:26:00 EDT, 1 tab, PO, qhs, PRN: Insomnia Start Date: 08/13/18 Status: Ordered Metoprolol Succinate ER 50 mg oral tablet, extended release Start: 11/09/23 11:14:00 EST, 3 tab, PO, Daily Start Date: 11/09/23 Status: Ordered montelukast 10 mg oral tablet Start: 09/07/23 20:30:00 EDT, 1 tab, PO, qPM, Disp# 90 tab, Refills: 0, Pharmacy: [facility] #[id number] Start Date: 09/07/23 Status: Ordered Multiple Vitamins oral tablet Start: 09/26/13 14:39:00, 1 tab, PO, Daily Start Date: 09/26/13 Status: Ordered Tessalon Perles 100 mg oral capsule Start: 11/09/23 11:46:00 EST, 1 cap, PO, tid, Disp# 21 cap, Refills: 0, Pharmacy: [facility] #[id number] Start Date: 11/09/23 Status: Ordered Vitamin C 500 mg oral tablet Start: 09/26/13 14:39:00, 1 tab, PO, Daily Start Date: 09/26/13 Status: Ordered Vitamin D3 2000 intl units oral tablet Start: 06/04/15 9:06:00, 1 tab, PO, Daily Start Date: 06/04/15 Status: Ordered Mental Status 11/09/23 Barriers to Learning one year None evide nt Mandatory Health Literacy Documentation Yes Health Literacy Communication Barriers N ever Primary Language Latvian Problem List Condition Confirmation Course Effective Dates [...] Effective Dates Health Status Clinical Service Informant Body mass index [BMI] 28.0-28.9, adult Discharge Diagnosis 11/09/23 Non-Specified Cough Discharge Diagnosis 11/09/23 Non-Specified COVID Discharge Diagnosis 11/09/23 Non-Specified Hospital discharge follow-up Discharge Diagnosis 11/09/23 Insomnia Discharge Diagnosis 11/09/23 Non-Specified Muscle spasm Discharge Diagnosis 11/09/23 Non-Specified Atrial fibrillation Discharge Diagnosis 11/09/23 Non-Specified Rash of hand Discharge Diagnosis 11/09/23 Procedures Procedure Date Related Diagnosis Body Site [...] recent to oldest [Reference Range]: 1 Height 189.5 cm (11/09/23 11:14 AM) Patient Weight 101.3 kg (11/09/23 11:14 AM) Body Mass Index 28.21 kg/m2 (11/09/23 11:14 AM) Temperature [36.5-37.9 DegC] 36.5 DegC (11/09/23 11:14 AM) Heart Rate 64 bpm (11/09/23 11:14 AM) Respiratory Rate 12 br/min (11/09/23 11:14 AM) Blood Pressure 104/80mmHg (11/09/23 11:14 AM) Cuff Pulse Pressure 24 mmHg (11/09/23 11:14 AM) Social History Social History Type Response Smoking Status Never smoked cigaret asuncion Sex Patient Care team information Care Team Personnel Name: Nina Ibrahim Position: HIS Supervisor_P Member Role: HIS Lifetime Name: DO Cornell Alonna Paige Position: Resident Member Role: Primary Care Provider Address: Address: [address] Care Team Related Persons Name: JAE PERALTA Address: [place] Address: home [address] [place], [place] [phone] Name: UMA PERALTA Address: [place] Address: home [address] [place], [id number] Name: MIGEL PERALTA Address: [place] Address: home [address] [place], [place] [id number] Name: CESAR PERALTA Address: home [address] [place], [place] [phone] Name: CESAR PERALTA Address: [place] Address: home [address] [place], [place] [id number]
--- NOTE | 2023-11-13 06:26 | Emergency Department Note ---
History of Present Illness General Chief complaint: Shortness of Breath/Dyspnea Stated complaint: SOB,COUGH Time Seen by Provider: 11/13/23 02:31 History of Present Illness This is a 57-year-old male presenting to the emergency department for evaluation of shortness of breath symptoms worsening over the past 3 to 4 days. The patient has a history of A-fib and CHF with ejection fraction of 30%. He was diagnosed with COVID-19 about 3 weeks ago and seems to have been recovering. The patient has chest tightness tonight and did take an old dose of steroids as well as use an albuterol inhaler without significant improvement of symptoms. Patient has not had distinct fevers or chills. He rates his discomfort an 8/10. Home Medications Medication Instructions Recorded Confirmed Type ascorbate calcium (vitamin C) 500 500 mg PO DAILY 08/17/19 11/13/23 History mg tablet cholecalciferol (vitamin D3) 10 400 units PO DAILY 08/17/19 11/13/23 History mcg (400 unit) capsule cyclobenzaprine 10 mg tablet 10 mg PO HS #30 tabs 08/17/19 11/13/23 Rx montelukast 10 mg tablet 10 mg PO QAM 08/17/19 11/13/23 History diazepam 5 mg tablet 5 mg PO HS 09/03/22 11/13/23 History melatonin 5 mg capsule 5 mg PO HS 09/03/22 11/13/23 History calcium carb-Ca gluc 500 mg 3 tab PO DAILY 01/05/23 11/13/23 History calcium-magnesium ox-Mg gluc 250 mg tablet (Calcium Magnesium) multivitamin 1 tab PO DAILY 01/05/23 11/13/23 History apixaban 5 mg tablet (Eliquis) 5 mg PO BID #180 tabs 01/22/23 11/13/23 Rx famotidine 20 mg tablet (Pepcid) 20 mg PO BID 01/30/23 11/13/23 History furosemide 20 mg tablet (Lasix) 20 mg PO DAILY PRN Weight Gain 01/30/23 11/13/23 History fluticasone 500 mcg-salmeterol 50 1 inh inhalation BID 02/19/23 11/13/23 History mcg/dose blistr powdr for inhalation (Advair Diskus) sacubitril 97 mg-valsartan 103 mg 1 tab PO BID #180 tabs 03/10/23 11/13/23 Rx tablet (Entresto) dapagliflozin propanediol 10 mg 10 mg PO DAILY #30 tabs 08/19/23 11/13/23 Rx tablet (Farxiga) fluticasone propionate 50 1 spray intranasal DAILY 10/27/23 11/13/23 History mcg/actuation nasal spray,suspension albuterol sulfate 90 mcg/actuation 2 puffs inhalation Q4H PRN 11/02/23 11/13/23 Rx breath activated powder inhaler Shortness Of Breath Or Wheezing or cough #1 ea benzonatate 100 mg capsule 100 mg PO TID PRN cough #30 caps 11/02/23 11/13/23 Rx khkuprizln-xwgmxwjdaakdd-cyrejbzk 1 cap PO Q6H PRN headache/migraine 11/02/23 11/13/23 Rx 50 mg-300 mg-40 mg capsule #7 caps (Fioricet) meclizine 12.5 mg tablet 12.5 mg PO TID PRN 11/02/23 11/13/23 Rx vertigo/spinning #20 tabs ondansetron 4 mg disintegrating 4 mg PO Q6H PRN nausea and 11/02/23 11/13/23 Rx tablet vomiting #14 tabs metoprolol succinate 50 mg 150 mg (3 x 50 mg) PO DAILY #90 11/06/23 11/13/23 Rx tablet,extended release 24 hr tabs Allergies Allergy/AdvReac Type Severity Reaction Status Date / Time Tetracyclines Allergy Severe VOMITING Verified 11/13/23 02:43 AND RASH ceftriaxone [From Rocephin] Allergy Intermediate Hives Verified 11/13/23 02:43 amoxicillin Allergy Unknown RX AN Verified 11/13/23 02:43 INFANT clavulanic acid Allergy Unknown RX AN Verified 11/13/23 02:43 INFANT erythromycin base Allergy Unknown REACTION Verified 11/13/23 02:43 TO PCN AND AUGMENTIN Penicillins Allergy Unknown REACTION Verified 11/13/23 02:43 AN INFANT - UNKNOWN banana AdvReac Intermediate Vomiting Verified 11/13/23 02:43 hydromorphone [From Dilaudid] AdvReac Intermediate Vomiting Verified 11/13/23 02:43 Past Med/Surg History Medical History Migraine Atrial fibrillation s/p cardioversion 01/2023 [place]. on Eliquis. Follows with Dr. Rios. 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 DETAILS Social History Smoking Status: Never smoker Cigarettes Per Day: USED TO SMOKE CIGARS "ONCE IN A WHILE" NOT ANY FOR YEARS; Second Hand Exposure: No; Do You Dip or Chew Tobacco: No; Hx Alcohol Use: No Hx Substance Use: No Preferred Language: Japanese Communication Ability: Effective Enterprise Resource Planner Required: No Beliefs That Will Affect Care: None Current Living Situation: Spouse current occupation: [employer] Feels Safe at Home: Yes Assistive Devices: None Review of Systems A total of 10 systems reviewed and were otherwise negative Physical Exam Vital Signs Vital Signs - 24 hr 11/13/23 02:26 11/13/23 02:36 11/13/23 02:44 Temperature 37 C Temperature Source Temporal Artery Scan Pulse Rate 69 136 H Pulse Rate [Finger] Pulse Rhythm Regular Pulse Rhythm [Finger] Pulse Strength Normal Pulse Strength [Finger] Respiratory Rate 20 Respiratory Effort / Characteristics Non-Labored Spontaneous Respiratory Depth Normal Respiratory Pattern Blood Pressure 99/63 L Blood Pressure [Right Arm] Blood Pressure Mean 75 Blood Pressure Mean [Right Arm] Blood Pressure Position Sitting Pulse Oximetry 98 Oxygen Delivery Method Room Air Room Air Sepsis Recent Fever Within 48 Hours No Sepsis New/Unexplained Change in Mental Status N/A Sepsis Action Taken by Nursing No Action Required 11/13/23 02:44 11/13/23 02:44 11/13/23 04:00 Temperature Temperature Source Pulse Rate Pulse Rate [Finger] 142 H 128 H Pulse Rhythm Regular Pulse Rhythm [Finger] Regular Pulse Strength Pulse Strength [Finger] Normal Respiratory Rate 20 22 Respiratory Effort / Characteristics Non-Labored Spontaneous Non-Labored Spontaneous Respiratory Depth Normal Normal Respiratory Pattern Regular Regular Blood Pressure Blood Pressure [Right Arm] 119/76 124/86 Blood Pressure Mean Blood Pressure Mean [Right Arm] 90 98 Blood Pressure Position Pulse Oximetry 95 94 Oxygen Delivery Method Room Air Room Air Room Air Sepsis Recent Fever Within 48 Hours Sepsis New/Unexplained Change in Mental Status Sepsis Action Taken by Nursing 11/13/23 04:24 11/13/23 05:00 11/13/23 05:28 Temperature Temperature Source Pulse Rate 112 H Pulse Rate [Finger] 128 H 110 H Pulse Rhythm Pulse Rhythm [Finger] Pulse Strength Pulse Strength [Finger] Respiratory Rate 18 16 Respiratory Effort / Characteristics Respiratory Depth Respiratory Pattern Blood Pressure Blood Pressure [Right Arm] 105/67 116/83 Blood Pressure Mean Blood Pressure Mean [Right Arm] 79 94 Blood Pressure Position Pulse Oximetry 94 96 Oxygen Delivery Method Room Air Room Air Sepsis Recent Fever Within 48 Hours Sepsis New/Unexplained Change in Mental Status Sepsis Action Taken by Nursing 11/13/23 06:00 Temperature Temperature Source Pulse Rate Pulse Rate [Finger] 108 H Pulse Rhythm Pulse Rhythm [Finger] Regular Pulse Strength Pulse Strength [Finger] Normal Respiratory Rate 24 Respiratory Effort / Characteristics Non-Labored Spontaneous Respiratory Depth Normal Respiratory Pattern Regular Blood Pressure Blood Pressure [Right Arm] 124/90 Blood Pressure Mean Blood Pressure Mean [Right Arm] 101 Blood Pressure Position Pulse Oximetry 94 Oxygen Delivery Method Room Air Sepsis Recent Fever Within 48 Hours Sepsis New/Unexplained Change in Mental Status Sepsis Action Taken by Nursing VITALS: Vitals are noted on the nurse's note and reviewed by myself. Vital signs with tachycardia in the 140s GENERAL: Well-developed, well-nourished, white male, who is pleasant but mildly uncomfortable. HEAD: Normocephalic atraumatic. NECK: Supple without nuchal rigidity. No lymphadenopathy. No thyromegaly. Cervical spine is nontender. HEART: Irregularly irregular LUNGS: Mild bibasilar crackles right greater than left ABDOMEN: Positive normal bowel sounds x 4. Soft, nontender, without masses or organomegaly. No guarding or rebound tenderness. MUSCULOSKELETAL: No muscle atrophy, erythema, or edema noted. Full range of motion in all extremities. NEURO: Patient was alert and oriented to person place and time. CN II through XII grossly intact. Course Administered Medications Discontinued Medications Sodium Chloride (Nss) 500 mls @ 999 mls/hr IV .Q31M ONE Stop: 11/13/23 03:11 Last Infusion: 11/13/23 05:29 Dose: Infused Documented By: Admin: 11/13/23 03:22 Dose: 999 mls/hr Documented By: LEXI Metoprolol Tartrate (Metoprolol Tartrate 1 Mg/Ml Vial) 5 mg IV NOW STA Stop: 11/13/23 03:14 Last Admin: 11/13/23 03:25 Dose: 5 mg Documented By: LEXI Medical Decision Making Differential Diagnosis Differential diagnosis includes, but is not limited to: Myocardial infarction, dysrhythmia, pericarditis, pneumothorax, aortic aneurysm/dissection, DVT/PE, anxiety, GERD, PUD, electrolyte imbalance, thyroid disorder, pneumonia, bronchitis, pancreatitis, and others Laboratory Data 11/13/23 02:48 11/13/23 02:48 Lab Results 11/13/23 11/13/23 Range/Units 02:48 03:18 WBC 11.81 H (4.8-10.8) K/ul RBC 6.04 (4.70-6.10) M/uL Hgb 17.0 (14.0-18.0) g/dl Hct 51.3 (42.0-52.0) % MCV 84.9 (80.0-100.0) fL MCH 28.1 (25.0-34.0) pg MCHC 33.1 (32.0-36.0) g/dL RDW Std Deviation 41.9 (36.4-46.3) fL RDW Coeff of Nam 13.6 (11.5-14.5) % Plt Count 207 (130-400) K/uL MPV 11.1 (9.4-12.4) fL Immature Gran % (Auto) 0.6 % Neut % (Auto) 86.9 % Lymph % (Auto) 6.3 % [place] % (Auto) 5.8 % Eos % (Auto) 0.3 % Baso % (Auto) 0.1 % Neut # (Auto) 10.28 H (1.40-6.50) K/uL Lymph # (Auto) 0.74 L (1.20-3.40) K/uL [place] # (Auto) 0.68 H (0.11-0.59) K/uL Eos # (Auto) 0.03 (0.00-0.50) K/uL Baso # (Auto) 0.01 (0.00-0.20) K/uL Immature Gran # (Auto) 0.07 (0.01-0.20) K/uL PT 10.3 (9.0-12.0) Seconds INR 0.9 (0.9-1.1) APTT 28 (21-31) Seconds PTT Ratio 1.0 VBG pH 7.44 H (7.36-7.41) VBG pCO2 37 L (38-50) mmHg VBG pO2 56 mmHg VBG HCO3 25 mmol/L VBG O2 Saturation 88.3 % VBG Base Excess 1.1 mEq/L Sodium 138 (136-145) mmol/L Potassium 4.3 (3.5-5.1) mmol/L Chloride 105 (98-107) mmol/L Carbon Dioxide 23 (21-32) mmol/L Anion Gap 10 (3-11) BUN 25 H (6-23) mg/dl Creatinine 0.92 (0.6-1.4) mg/dl Est Cr Clr Drug Dosing 108.4 ml/min Est GFR ( Amer) 108.1 ml/min Est GFR (Non-Af Amer) 93.3 ml/min BUN/Creatinine Ratio 27.2 H (10-20) Glucose 156 H (70-99(Fasting)) mg/dl Lactate 3.3 H* (0.4-2.0) mmol/L Calcium 8.8 (8.6-10.3) mg/dl Magnesium 2.4 (1.7-2.4) mg/dl Total Bilirubin 0.4 (0.2-1.0) mg/dl AST 23 (13-39) U/L ALT 27 (7-52) U/L Alkaline Phosphatase 55 (34-104) U/L Troponin I High Sens 16.9 (0-20) pg/ml B-Natriuretic Peptide 439 H (0-100) pg/ml Total Protein 6.7 (6.0-8.3) gm/dl Albumin 3.7 (3.4-5.0) gm/dl Globulin 3.0 (2.5-4.0) gm/dl Albumin/Globulin Ratio 1.2 (0.9-2) MDM Narrative Physical exam and history were performed. Nursing notes, EMR, and Medication List were personally reviewed. No social concerns were identified as barriers to patients care. Patient appears to have shortness of breath symptoms bringing him to the ER. He does have an elevated heart rate on arrival in the 130s to 140s. EKG was performed and does show atrial fibrillation with RVR at 127 bpm. IV access was established and labs were obtained. He does have a history of CHF and was very gently hydrated with 500 mL normal saline. An order was placed for continuous cardiac monitoring. The monitor shows a rate of 108 with atrial fibrillation rhythm. Patient's blood work is as above and was reviewed. His white blood cell count is minimally elevated at 11.8. He does not have significant anemia, bandemia, or gross electrolyte imbalance. Glucose is 156. Transaminases are not diagnostic. Troponin x 1 is negative. BNP is elevated at 439. Lipase and transaminases not diagnostic. The patient initially had a slightly low blood pressure on arrival, which did seem to correct with the 500 mL normal saline. Case was discussed with my attending physician, and we did give the patient 5 milligram IV Lopressor. Overall the patient does not appear well for discharge home. He does not have an obvious source for infection, and antibiotics were considered, however this was deferred to the hospitalist service. Additionally we did not wish to overload the patient with fluids as his ejection fraction is low and BNP is elevated. The case was discussed with the hospitalist team who agreed to evaluate the patient here in the ER. Please see their dictation for further patient course, plan, disposition. The chart was completed utilizing [employer] Speech Voice Recognition Software. Grammatical errors, random word insertions, pronoun errors, and incomplete sentences are an occasional consequence of this system due to software limitations, ambient noise, and hardware issues. Any formal questions or concerns about the content, text, or information contained within the body of this dictation should be directly addressed to the provider for clarification. . Impression & Plan Atrial fibrillation with rapid ventricular response, Congestive heart failure, History of COVID-19 Discharge Plan Visit Data Chief Complaint: Shortness of Breath/Dyspnea Stated Complaint: SOB,COUGH ED Provider: David Callahan ED Midlevel Provider: Wilder Johnson Discharge Problem: Atrial fibrillation with rapid ventricular response, Congestive heart failure, History of COVID-19 Discharge Instructions Interventions: ED Discharge Assessment Last Done: 11/13/23 06:18 Forms Stand Alone Forms: [facility] Prescriptions Prescriptions: No Action cyclobenzaprine 10 mg tablet 10 mg PO HS Qty: 30 0RF montelukast 10 mg tablet 10 mg PO QAM ascorbate calcium (vitamin C) 500 mg tablet 500 mg PO DAILY cholecalciferol (vitamin D3) 400 unit capsule 400 units PO DAILY Eliquis 5 mg tablet 5 mg PO BID Qty: 180 3RF Hold Instructions: Resume on 11/05/23. metoprolol succinate 50 mg tablet extended release 24 hr 150 mg PO DAILY Qty: 90 5RF diazepam 5 mg tablet 5 mg PO HS melatonin 5 mg capsule 5 mg PO HS Entresto 97-103 mg tablet 1 tab PO BID Qty: 180 3RF fluticasone propion-salmeterol [Advair Diskus] 500-50 mcg/dose blister with device 1 inh inhalation BID Farxiga 10 mg tablet 10 mg PO DAILY Qty: 30 11RF Calcium Magnesium 500 mg calcium -250 mg Tablet 3 tab PO DAILY multivitamin Tablet 1 tab PO DAILY famotidine [Pepcid] 20 mg Tablet 20 mg PO BID furosemide [Lasix] 20 mg tablet 20 mg PO DAILY PRN (Reason: Weight Gain) fluticasone propionate 50 mcg/actuation spray,suspension 1 spray INTRANASAL DAILY meclizine 12.5 mg Tablet 12.5 mg PO TID PRN (Reason: vertigo/spinning) Qty: 20 0RF benzonatate 100 mg Capsule 100 mg PO TID PRN (Reason: cough) Qty: 30 0RF ondansetron 4 mg tablet,disintegrating 4 mg PO Q6H PRN (Reason: nausea and vomiting) Qty: 14 0RF albuterol sulfate 90 mcg/actuation aerosol powdr breath activated 2 puffs INH Q4H PRN (Reason: Shortness Of Breath Or Wheezing or cough) Qty: 1 0RF Patient Comments: 1 inh INH as needed; Rx Instructions: use with spacer device eznpucrczs-hmyumjtzxouaz-zgck [Fioricet] 50-300-40 mg capsule 1 cap PO Q6H PRN (Reason: headache/migraine) Qty: 7 0RF Referrals Referrals: Brianna Cornell DO [Primary Care Provider] -
[2023-11-13 06:44] LABS: Appearance Urine Clear (Clear); Bacteria Urine Automated Negative (Negative); Bilirubin Urine Negative (Negative); Blood Urine Negative (Negative); Cast Urine Automated 0 /lpf (0-5); Color Urine Yellow; Epithelial Cell Urine Auto 0-5 /lpf (0-5); Glucose Urine UA 3+ (Negative); Ketones Urine Negative (Negative); Leukocyte Esterase Urine Negative (Negative); Nitrite Urine Negative (Negative); Protein Urine Trace (Negative); RBC Urine Automated 0-4 /hpf (0-4); Specific Gravity Urine 1.033 (1.000-1.030); Urobilinogen Urine Negative (Negative)
[2023-11-13] MEDS ORDERED: POLYETHYLENE (MIRALAX) 17 GM PACK PO PRN (06:53)
[2023-11-13] MEDS ORDERED: BENZONATATE 100 MG CAPSULE PO PRN (06:53)
[2023-11-13] MEDS ORDERED: ONDANSETRON 4 MG OD TAB PO PRN (06:53)
[2023-11-13] MEDS ORDERED: ACETAMINOPHEN 325 MG TAB PO PRN (06:53)
[2023-11-13] MEDS ORDERED: METOPROLOL TARTRATE 1 MG/ML VIAL IV PRN (06:53)
[2023-11-13] MEDS ORDERED: MECLIZINE 12.5 MG TAB PO PRN (06:53)
--- NOTE | 2023-11-13 07:11 | Hospitalist Progress Note ---
"Date of Service November 13, 2023 Assessment & Plan (1) Atrial fibrillation with rapid ventricular response: (2) Dyspnea: (3) Hypertension: (4) HFrEF (heart failure with reduced ejection fraction): (5) History of COVID-19: (6) Asthma: Plan Conner is a 57 M w/ PMH of nonischemic cardiomyopathy, atrial fibrillation, hypertension, asthma, HFrEF, chronic dyspnea, and cerebellar tonsillar ectopia who presents to the hospital for evaluation of dyspnea. Patient found to be in A-fib with RVR. Atrial fibrillation with rapid ventricular response: -Admit to telemetry, telemetry indication being A-fib with RVR -5 mg of IV metoprolol tartrate given in ED with some improvement in rate, as needed metoprolol pushes available -Consult cardiology, appreciate recommendations -Magnesium goal greater than 2, potassium goal greater than 4 -Continue Eliquis 5 mg twice daily --- Cardiology recommending against inpt cardioversion, unlikely that patient's symptoms are consistent with AFib given that he is chronically asymptomatic, in addition, patient would require 4 weeks of full dose anticoagulation prior to Cardioversion, otherwise RATNA/CV would be required. Cardiology to increase dose of Metoprolol and add Spironolactone to regimen. Dyspnea/Cough | ABRS - Likely secondary to acute bacterial rhinosinusitis in the setting of recent COVID-19 infection and chronic asthma - Patient w/o hypoxia or evidence of fluid overload on examination - Improvement following Methylprednisolone dose in ED - Continue Tessalon perles PRN for cough --- Add Bactrim DS BID for treatment of ABRS (patient allergic to PCN, cephalosporins, and tetracyclines) --- Add Affrin nasal spray x 6 doses for nasal congestion Hypertension: - Continue metoprolol, Entresto HFrEF (heart failure with reduced ejection fraction): - Continue metoprolol, Entresto, Farxiga - Hold Lasix --- No evidence of fluid overload on examination, continue w/o Lasix History of COVID-19: -Recent diagnosis of COVID-19 on last admission, patient completed Paxlovid -Does not require isolation room at this time Asthma: - Continue inhalers and montelukast - S/p Solu-Medrol as above Disposition: Med/tele Diet: Heart Healthy DVT prophylaxis: Eliquis CODE STATUS: Full code Admission and Anticipated Discharge Date Admission Date: November 13, 2023 Supervising Physician Co-Signing Physician Notes I personally examined the patient and verified all khalil points of history and exam, discussed case, and agree with decision making with Dr Cornell seen in f/u from early AM admission - abx for secondary bacterial overgrowth sinusitis. follow into tomorrow - anticipate probably home then. otherwise as above Subjective 11/13: Patient feeling much improved this morning. He endorses an ongoing cough and upper respiratory congestion, but denies dyspnea, chest pain, fevers, or chills. He is not experiencing any lower extremity edema. He denies any significant weight gain in the last two weeks and states he has not required a dose of lasix. Of note, patient recently had COVID-19, he feels that he recovered, but then subsequently worsened again. Patient and have similar symptoms. Review of Systems Review of Systems: As per HPI Physical Exam Physical Exam: Gen: NAD, alert, interactive HEENT: Supple, no LAD, no thyromegaly, no JVD Resp:Non-labored, no wheezing/rhonchi/rales, CTAB, coughing CV:tachycardic, irregularly irregular, no M/R/G Abd: Soft, non-distended, no TTP, normoactive bowels, no masses Extr: 2+ dp bilaterally, no edema Skin: No rashes lesions or erythema Results & Data Results & Data Vital Signs (Past 12 Hours) Vital Signs Temp Pulse Pulse Resp BP BP Pulse Ox 11/13/23 06:00 108 H 24 124/90 94 11/13/23 05:28 112 H 11/13/23 05:00 110 H 16 116/83 96 11/13/23 04:24 128 H 18 105/67 94 11/13/23 04:00 128 H 22 124/86 94 11/13/23 02:44 11/13/23 02:44 142 H 20 119/76 95 11/13/23 02:44 11/13/23 02:36 136 H 11/13/23 02:26 37 C 69 20 99/63 L 98 O2 Del Method 11/13/23 06:00 Room Air 11/13/23 05:28 11/13/23 05:00 Room Air 11/13/23 04:24 Room Air 11/13/23 04:00 Room Air 11/13/23 02:44 Room Air 11/13/23 02:44 Room Air 11/13/23 02:44 Room Air 11/13/23 02:36 11/13/23 02:26 Room Air Resident Activity Tracking Resident Involvement: Resident Care Provided Care Provided: Adult Hospital Medicine (3) Hypertension Hypertension type: primary hypertension Qualified Code(s): I10 - Essential (primary) hypertension"
[2023-11-13] MEDS ORDERED: ALBUTEROL HFA 8 GM INHALER INH PRN (07:13)
--- NOTE | 2023-11-13 07:21 | XRay Report ---
XR chest 1V portable CLINICAL HISTORY: Shortness of breath. COMPARISON STUDY: Chest CT December 02, 2022. Chest radiograph October 29, 2023. FINDINGS: Lung volumes are normal. Lungs are clear. There is no pneumothorax or pleural effusion. Mod erate cardiomegaly is unchanged. Mediastinal contours are normal. There is no evidence for pulmonary edema. IMPRESSION: No acute cardiopulmonary findings. ACT 112: Negative or not required by law. Electronically signed by: Vasile Parikh M.D. 11/13/2023 7:20 AM
[2023-11-13] MEDS: APIXABAN 5 MG TABLET PO SCH ×2 (08:27→21:21)
[2023-11-13] MEDS: CHOLECALCIFEROL 400 UNITS 10 MCG TAB PO SCH (08:27)
[2023-11-13] MEDS: guaiFENesin 600 MG TABCR PO SCH ×2 (08:28→21:21)
[2023-11-13] MEDS: VALSARTAN/SACUBITRIL 103/97MG TAB PO SCH ×2 (08:29→21:21)
[2023-11-13] MEDS: MONTELUKAST SODIUM 10 MG TABLET PO SCH (08:29)
[2023-11-13] MEDS: FLUTICASONE PROPIONATE NA SPR 16 GM BTL SCH (08:30)
[2023-11-13] MEDS ORDERED: METOPROLOL SUCC 50MG EXT REL TAB PO SCH (09:00)
[2023-11-13] MEDS ORDERED: NON-FORMULARY MEDICATION (Ca Carb-Ca Gluc-Mg Ox-Mg Gluco [Calcium Magnesium] 500 mg calciu PO SCH (09:00)
[2023-11-13] MEDS: FLUTICASONE/VILANTEROL 100/25MCG 14 PUFFS/INHALER INH SCH (09:40)
[2023-11-13] MEDS: FAMOTIDINE 20 MG TAB PO SCH ×2 (10:27→21:22)
--- NOTE | 2023-11-13 13:04 | Cardiology Consultation ---
Date of Consultation November 13, 2023 Assessment & Plan (1) Atrial fibrillation: (2) HFrEF (heart failure with reduced ejection fraction): (3) Cardiomyopathy: (4) Chest tightness: (5) Dyspnea: (6) Hypertension: Plan ASSESSMENT/PLAN: 1. Atrial fibrillation: Persistent. Heart rate reasonably controlled at rest but quickly elevates on exertion per nursing staff. Will increase metoprolol succinate to 200 mg daily. Discussed potentially performing transesophageal echo and cardioversion today, if able to arrange but given what sounds to be more like an upper respiratory issue, since there is no urgent indication, recommend at this time continuation of rate control and keeping arranged outpatient cardioversion. Atrial fibrillation does not seem to be playing a role in his admission as he has been in A-fib since August and tolerating it without obvious symptoms. Continue anticoagulation for stroke risk reduction. 2. Heart failure with reduced EF: He appears euvolemic. Continue metoprolol succinate and will titrate to 200 mg daily for more rate control. Continue high-dose Entresto. Continue SGLT2 inhibitor. Start spironolactone 25 mg daily. Monitor renal function and electrolytes. Low-sodium diet, less than 2000 mg daily. Daily weights. I's and O's while hospitalized. Uses Lasix as needed. Lasix not necessary at this time. 3. Cardiomyopathy: Presumed nonischemic. Secondary workup has been unremarkable thus far. His primary bodywork therapist has mentioned referral to [facility] heart failure specialist team. He follows with the heart failure program locally as well. Medical therapy as above. After 3 months of optimal therapy, if LV systolic function remains significantly reduced, can consider ICD for primary prevention. 4. Chest pain: Does not seem consistent with angina or pericarditis. May be related to his upper respiratory issue and asthma. Symptoms seem to have improved with steroids. 5. Dyspnea: Euvolemic on exam. Does not seem to be cardiac in nature. Symptoms improving with steroids. Recent COVID infection. 6. Hypertension: Blood pressure reasonably controlled. Adjusting medications as above. 7. Disposition: Plan of care discussed with primary hospitalist team, Dr. Cornell. Dr. Ventura, his primary bodywork therapist, will be on-call and covering the next several days. Please call with any questions or concerns. Plan of care discussed with nursing staff as well. Thank you for allowing me to participate in the care of your patient. Please call for any other questions or concerns. Sincerely, Eagle Bedolla M.D. History of Present Illness Reason for Consultation: Afib Requesting Physician: Sekou Story Attending Physician: rBianna Cornell, History of Present Illness Mr. Balbuena is a very pleasant 57-year-old gentleman with a history significant for atrial fibrillation, heart failure with reduced EF, cardiomyopathy, hypertension, and asthma. His primary bodywork therapist is Dr. Ventura. He also follows in the heart failure program. He has had the following studies/procedures: 1. 01/16/23 Echo: Severely dilated LV with reduced EF, 25-30%. Global hypokinesis. No LVH. Normal RV size with moderately reduced systolic function. Mild left atrial dilation. Afib. 2. 12/14/22 PFTs: Moderate airflow obstruction with significant bronchodilator response. Mild air trapping and normal DLCO. Consistent with asthma. 3. 01/31/23 Echo: LV moderately dilated. Severe concentric LVH. EF 15-20%. Severe global hypokinesis of the LV. RV normal size/function. No right to left shunting. Frequent PVCs. 4. 02/05/23 Cardioversion 5. 03/10/23 Echo: Moderately dilated LV. Mild LVH. EF 35-40%. Normal RV size/function. No significant valve pathology. Normal CVP. Sinus. 6. 03/27/23 Stress echo: Abnormal baseline echo and EKG but no evidence of ischemia. 7. 08/05/23 Echo: Severe LV dilatation with moderate global hypokinesis. EF 30- 35%. Mild left atrial dilatation. Mild MR. He was hospitalized on 11/13/2023 after presenting to the emergency department with shortness of breath and cough. He was previously discharged on 11/03/2023 after being treated for COVID infection and asthma exacerbation. He has been in atrial fibrillation since sometime in August and when noted to be in A-fib, apparently had no significant symptoms when evaluated by his primary bodywork therapist. After recent hospitalization, he noted improvement of his shortness of breath and chest tightness and was treated with Paxlovid. Eliquis was transiently reduced to 2.5 mg twice daily. He felt better went home but over the past 3 to 4 days, had increased shortness of breath and cough with yellow/green sputum. He also has had thick yellow/green mucus from his nose but no sore throat or fever. When he came to the emergency department, he was noted to be in atrial fibrillation as he has been since August, with rapid ventricular response. His breathing has improved since presentation, noting improvement following methylprednisolone earlier this morning. His coughing has improved. He denies orthopnea. He has had substernal chest tightness both earlier in October and once again on occasion. The chest discomfort is nonradiating, nonexertional, nonpositional, and nonpleuritic. The pain can persist for several minutes. It is accompanied with shortness of breath at times. He weighs himself daily at home. He has gained only 1.5 pounds since discharged earlier in October. He has as needed Lasix available but has used only 1 dose in the past 9 months or so. He maintains a low-sodium diet. He is scheduled for outpatient cardioversion in 2 or 3 weeks, after several weeks of therapeutic anticoagulation therapy. He recently noted red "spots" on his chest, face, and hands. He showed them to his PCP, Dr. Shelby. It was felt that perhaps it was related to the COVID infection. He believes that these spots are improving. Review of systems: As above. Review of systems otherwise negative/unremarkable. Family history: No known premature CAD in first-degree relatives. Paternal grandfather and paternal uncle in their 50s with presumed myocardial infarction. Social history: No recent smoking. No alcohol abuse. Lives at home with his and an adult daughter. Has 3 adult children. 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 He was unaccompanied. Allergies Allergy/AdvReac Type Severity Reaction Status Date / Time Tetracyclines Allergy Severe VOMITING Verified 11/13/23 02:43 AND RASH ceftriaxone [From Rocephin] Allergy Intermediate Hives Verified 11/13/23 02:43 amoxicillin Allergy Unknown RX AN Verified 11/13/23 02:43 INFANT clavulanic acid Allergy Unknown RX AN Verified 11/13/23 02:43 INFANT erythromycin base Allergy Unknown REACTION Verified 11/13/23 02:43 TO PCN AND AUGMENTIN Penicillins Allergy Unknown REACTION Verified 11/13/23 02:43 AN - UNKNOWN banana AdvReac Intermediate Vomiting Verified 11/13/23 02:43 hydromorphone [From Dilaudid] AdvReac Intermediate Vomiting Verified 11/13/23 02:43 Home Medications Medication Instructions Recorded Confirmed Type ascorbate calcium (vitamin C) 500 500 mg PO DAILY 08/17/19 11/13/23 History mg tablet cholecalciferol (vitamin D3) 10 400 units PO DAILY 08/17/19 11/13/23 History mcg (400 unit) capsule cyclobenzaprine 10 mg tablet 10 mg PO HS #30 tabs 08/17/19 11/13/23 Rx montelukast 10 mg tablet 10 mg PO QAM 08/17/19 11/13/23 History diazepam 5 mg tablet 5 mg PO HS 09/03/22 11/13/23 History melatonin 5 mg capsule 5 mg PO HS 09/03/22 11/13/23 History calcium carb-Ca gluc 500 mg 3 tab PO DAILY 01/05/23 11/13/23 History calcium-magnesium ox-Mg gluc 250 mg tablet (Calcium Magnesium) multivitamin 1 tab PO DAILY 01/05/23 11/13/23 History apixaban 5 mg tablet (Eliquis) 5 mg PO BID #180 tabs 01/22/23 11/13/23 Rx famotidine 20 mg tablet (Pepcid) 20 mg PO BID 01/30/23 11/13/23 History furosemide 20 mg tablet (Lasix) 20 mg PO DAILY PRN Weight Gain 01/30/23 11/13/23 History fluticasone 500 mcg-salmeterol 50 1 inh inhalation BID 02/19/23 11/13/23 History mcg/dose blistr powdr for inhalation (Advair Diskus) sacubitril 97 mg-valsartan 103 mg 1 tab PO BID #180 tabs 03/10/23 11/13/23 Rx tablet (Entresto) dapagliflozin propanediol 10 mg 10 mg PO DAILY #30 tabs 08/19/23 11/13/23 Rx tablet (Farxiga) fluticasone propionate 50 1 spray intranasal DAILY 10/27/23 11/13/23 History mcg/actuation nasal spray,suspension albuterol sulfate 90 mcg/actuation 2 puffs inhalation Q4H PRN 11/02/23 11/13/23 Rx breath activated powder inhaler Shortness Of Breath Or Wheezing or cough #1 ea benzonatate 100 mg capsule 100 mg PO TID PRN cough #30 caps 11/02/23 11/13/23 Rx yiqckljgax-heqgpdkobwroq-tkahyydr 1 cap PO Q6H PRN headache/migraine 11/02/23 11/13/23 Rx 50 mg-300 mg-40 mg capsule #7 caps (Fioricet) meclizine 12.5 mg tablet 12.5 mg PO TID PRN 11/02/23 11/13/23 Rx vertigo/spinning #20 tabs ondansetron 4 mg disintegrating 4 mg PO Q6H PRN nausea and 11/02/23 11/13/23 Rx tablet vomiting #14 tabs metoprolol succinate 50 mg 150 mg (3 x 50 mg) PO DAILY #90 11/06/23 11/13/23 Rx tablet,extended release 24 hr tabs Patient History Medical History (Updated 11/13/23 @ 13:29 by Jl Bedolla MD) HFrEF (heart failure with reduced ejection fraction) Cardiomyopathy Migraine Atrial fibrillation s/p cardioversion 01/2023 [place]. on Eliquis. Follows with Dr. Rios. Diverticulosis GERD (gastroesophageal reflux disease) History of skin cancer NOSE AREA Anxiety Zurita's palsy DX 01/30/23 *[facility] (CURRENTLY RX PREDNISONE FOR 5 DAYS) RT EYE CLOSED AND PARALYSIS RT SIDE CHF (congestive heart failure) History of COVID-19 07/2022>DEVELOPED PNX AFTER COVID AND TREATED Chronic dyspnea 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 History of ventricular tachycardia Restless leg syndrome Hypertension Surgical History History of cardioversion Family history of reaction to anesthesia MOTHER AND DAUGHTER>N/V Nausea and vomiting after administration of anesthetic agent History of arthroscopy LEFT KNEE Hx of vasectomy History of colonoscopy History of tooth extraction History of ear surgery ? 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 Alert and oriented. HEENT: Anicteric sclera. Neck: No JVD. No hepatojugular reflux. No bruits. Normal carotid upstrokes bilaterally. Cardiac: No ventricular heave. Irregularly irregular in the 90s. Normal S1-S2. No murmurs, rubs, or gallops. Pulmonary: Clear to auscultation bilaterally without wheezes, rales, or rhonchi. Abdomen: Soft, nontender, nondistended, with normoactive bowel sounds. No bruits noted. Extremities: 2+ radial pulses bilaterally. 2+ posterior tibialis pulses bilaterally. No edema or cyanosis. Psychiatric: Affect appears appropriate. Results & Data Vital Signs (Past 12 Hours) Vital Signs Temp Pulse Pulse Resp BP BP Pulse Ox 11/13/23 11:48 36.6 C 74 18 123/76 93 11/13/23 08:12 93 H 11/13/23 07:47 36.5 C 80 18 129/85 98 11/13/23 07:30 11/13/23 07:00 36.5 C 81 18 118/77 95 11/13/23 06:00 108 H 24 124/90 94 11/13/23 05:28 112 H 11/13/23 05:00 110 H 16 116/83 96 11/13/23 04:24 128 H 18 105/67 94 11/13/23 04:00 128 H 22 124/86 94 11/13/23 02:44 11/13/23 02:44 142 H 20 119/76 95 11/13/23 02:44 11/13/23 02:36 136 H 11/13/23 02:26 37 C 69 20 99/63 L 98 O2 Del Method 11/13/23 11:48 Room Air 11/13/23 08:12 11/13/23 07:47 Room Air 11/13/23 07:30 Room Air 11/13/23 07:00 Room Air 11/13/23 06:00 Room Air 11/13/23 05:28 11/13/23 05:00 Room Air 11/13/23 04:24 Room Air 11/13/23 04:00 Room Air 11/13/23 02:44 Room Air 11/13/23 02:44 Room Air 11/13/23 02:44 Room Air 11/13/23 02:36 11/13/23 02:26 Room Air Intake & Output 11/11/23 11/12/23 11/13/23 11/14/23 06:59 06:59 06:59 06:59 Intake Total 500 / 500 Balance 500 / 500 Weight 221 lb 1.978 oz 220 lb 10.923 oz Laboratory Results Laboratory Results - last 24 hr 11/13/23 11/13/23 11/13/23 02:48 03:18 06:18 WBC 11.81 H RBC 6.04 Hgb 17.0 Hct 51.3 MCV 84.9 MCH 28.1 MCHC 33.1 RDW Std Deviation 41.9 RDW Coeff of Nam 13.6 Plt Count 207 MPV 11.1 Immature Gran % (Auto) 0.6 Neut % (Auto) 86.9 Lymph % (Auto) 6.3 [place] % (Auto) 5.8 Eos % (Auto) 0.3 Baso % (Auto) 0.1 Neut # (Auto) 10.28 H Lymph # (Auto) 0.74 L [place] # (Auto) 0.68 H Eos # (Auto) 0.03 Baso # (Auto) 0.01 Immature Gran # (Auto) 0.07 PT 10.3 INR 0.9 APTT 28 PTT Ratio 1.0 VBG pH 7.44 H VBG pCO2 37 L VBG pO2 56 VBG HCO3 25 VBG O2 Saturation 88.3 VBG Base Excess 1.1 Sodium 138 Potassium 4.3 Chloride 105 Carbon Dioxide 23 Anion Gap 10 BUN 25 H Creatinine 0.92 Est Cr Clr Drug Dosing 108.4 Est GFR ( Amer) 108.1 Est GFR (Non-Af Amer) 93.3 BUN/Creatinine Ratio 27.2 H Glucose 156 H Lactate 3.3 H* 1.7 Calcium 8.8 Magnesium 2.4 Total Bilirubin 0.4 AST 23 ALT 27 Alkaline Phosphatase 55 Troponin I High Sens 16.9 B-Natriuretic Peptide 439 H Total Protein 6.7 Albumin 3.7 Globulin 3.0 Albumin/Globulin Ratio 1.2 Urine Color Urine Appearance Urine pH Ur Specific [place] Urine Protein Urine Glucose (UA) Urine Ketones Urine Blood Urine Nitrite Urine Bilirubin Urine Urobilinogen Ur Leukocyte Esterase Urine WBC (Auto) Urine RBC (Auto) U Hyaline Cast (Auto) U Epithel Cells (Auto) Urine Bacteria (Auto) 11/13/23 06:24 WBC RBC Hgb Hct MCV MCH MCHC RDW Std Deviation RDW Coeff of Nam Plt Count MPV Immature Gran % (Auto) Neut % (Auto) Lymph % (Auto) [place] % (Auto) Eos % (Auto) Baso % (Auto) Neut # (Auto) Lymph # (Auto) [place] # (Auto) Eos # (Auto) Baso # (Auto) Immature Gran # (Auto) PT INR APTT PTT Ratio VBG pH VBG pCO2 VBG pO2 VBG HCO3 VBG O2 Saturation VBG Base Excess Sodium Potassium Chloride Carbon Dioxide Anion Gap BUN Creatinine Est Cr Clr Drug Dosing Est GFR ( Amer) Est GFR (Non-Af Amer) BUN/Creatinine Ratio Glucose Lactate Calcium Magnesium Total Bilirubin AST ALT Alkaline Phosphatase Troponin I High Sens B-Natriuretic Peptide Total Protein Albumin Globulin Albumin/Globulin Ratio Urine Color Yellow Urine Appearance Clear Urine pH 6.0 Ur Specific [place] 1.033 H Urine Protein Trace H Urine Glucose (UA) 3+ H Urine Ketones Negative Urine Blood Negative Urine Nitrite Negative Urine Bilirubin Negative Urine Urobilinogen Negative Ur Leukocyte Esterase Negative Urine WBC (Auto) 1-5 Urine RBC (Auto) 0-4 U Hyaline Cast (Auto) 0 U Epithel Cells (Auto) 0-5 Urine Bacteria (Auto) Negative Diagnostic Findings Outpatient cardiology notes reviewed. Echo reports reviewed as noted above in HPI. History and physical report reviewed. Telemetry personally reviewed: Atrial fibrillation with improved heart rate. Heart rate now mostly 90s while in bed. ECG personally reviewed 11/13/2023 at 2:34 AM: A-fib RVR 127 bpm. PVC versus aberrantly conducted complex. Labs reviewed and notable for mild leukocytosis, normal hemoglobin, normal potassium, normal renal function, normal magnesium, normal transaminase levels, normal high-sensitivity troponin level, improved BNP, normal albumin. Chest x-ray 11/13/2023: No acute findings per radiology. Blood cultures are pending. Medications Administered Current Inpatient Medications Acetaminophen (Acetaminophen 325 Mg Tab) 650 mg PO Q4H PRN PRN Reason: Pain or Fever Stop: 12/13/23 06:52 Albuterol (Albuterol Hfa 8 Gm Inhaler) 2 puffs INH Q4H PRN PRN Reason: Shortness Of Breath Or Wheezing or cough Stop: 12/13/23 07:12 Apixaban (Apixaban 5 Mg Tablet) 5 mg PO BID [facility] Stop: 12/13/23 08:59 Last Admin: 11/13/23 08:27 Dose: 5 mg Benzonatate (Benzonatate 100 Mg Capsule) 100 mg PO TID PRN PRN Reason: cough Stop: 12/13/23 06:52 Cyclobenzaprine HCl (Cyclobenzaprine Hcl 10 Mg Tab) 10 mg PO HS [facility] Stop: 12/13/23 20:59 Diazepam (Diazepam 5 Mg Tablet) 5 mg PO HS [facility] Stop: 12/13/23 20:59 Famotidine (Famotidine 20 Mg Tab) 20 mg PO BID [facility] Stop: 12/13/23 08:59 Last Admin: 11/13/23 10:27 Dose: 20 mg Fluticasone Propionate (Fluticasone Propionate Na Spr 16 Gm Btl) 1 sprays NA DAILY DONNIE Stop: 12/13/23 08:59 Last Admin: 11/13/23 08:30 Dose: 1 sprays Fluticasone/Vilanterol (Fluticasone/Vilanterol 100/25mcg 14 Puffs/Inhaler) 1 puffs INH DAILY [facility] Stop: 12/13/23 08:59 Last Admin: 11/13/23 09:40 Dose: 1 puffs Guaifenesin (Guaifenesin 600 Mg Tabcr) 1,200 mg PO Q12 DONNIE Stop: 12/13/23 08:59 Last Admin: 11/13/23 08:28 Dose: 1,200 mg Meclizine HCl (Meclizine 12.5 Mg Tab) 12.5 mg PO TID PRN PRN Reason: vertigo/spinning Stop: 12/13/23 06:52 Melatonin (Melatonin 3 Mg Tab) 6 mg PO HS [facility] Stop: 12/13/23 20:59 Metoprolol Succinate (Metoprolol Succ 50mg Ext Rel Tab) 150 mg PO DAILY DONNIE Stop: 12/13/23 08:59 Last Admin: 11/13/23 08:28 Dose: 150 mg Metoprolol Tartrate (Metoprolol Tartrate 1 Mg/Ml Vial) 5 mg IV Q5M PRN PRN Reason: Tachycardia Stop: 12/13/23 06:52 Miscellaneous (Farxiga 10 Mg Tablet: Order Awaiting Action) 1 each N/A QS [facility] Stop: 12/13/23 07:59 Last Admin: 11/13/23 08:26 Dose: Not Given Montelukast Sodium (Montelukast Sodium 10 Mg Tablet) 10 mg PO QAM [facility] Stop: 12/13/23 08:59 Last Admin: 11/13/23 08:29 Dose: 10 mg Ondansetron HCl (Ondansetron 4 Mg Od Tab) 4 mg PO Q6H PRN PRN Reason: nausea and vomiting Stop: 12/13/23 06:52 Oxymetazoline HCl (Oxymetazoline 0.05% 30 Ml Btl) 1 sprays TG BID [facility] Stop: 11/16/23 09:01 Polyethylene Glycol (Polyethylene (Miralax) 17 Gm Pack) 17 gm PO DAILY PRN PRN Reason: Constipation Stop: 12/13/23 06:52 Sacubitril/Valsartan (Valsartan/Sacubitril 103/97mg Tab) 1 tab PO BID [facility] Stop: 12/13/23 08:59 Last Admin: 11/13/23 08:29 Dose: 1 tab Trimethoprim/Sulfamethoxazole (Sulfamethoxazole/Trimethoprim Ds 800/160mg Tab) 1 tab PO Q12 [facility] Stop: 11/20/23 20:59 Vitamin D (Cholecalciferol 400 Units 10 Mcg Tab) 400 units PO DAILY [facility] Stop: 12/13/23 08:59 Last Admin: 11/13/23 08:27 Dose: 400 units PG Care Time/CCT Total # of Minutes Spent Total Time Spent with Patient: Total time spent is greater than 50% in coordination of care (as documented) at patient's floor/unit and/or counseling patient: Coding Level of Care Code 33347 INT INP/OBS CARE 3/75MIN Diagnoses Atrial fibrillation I48.91 Atrial fibrillation type: unspecified HFrEF (heart failure with reduced ejection fraction) I50.20 Dilated cardiomyopathy I42.0 Cardiomyopathy type: dilated Chest tightness R07.89 Dyspnea R06.00 Primary hypertension I10 Hypertension type: primary hypertension (1) Atrial fibrillation Atrial fibrillation type: unspecified Qualified Code(s): I48.91 - Unspecified atrial fibrillation (3) Cardiomyopathy Cardiomyopathy type: dilated Qualified Code(s): I42.0 - Dilated cardiomyopathy (6) Hypertension Hypertension type: primary hypertension Qualified Code(s): I10 - Essential (primary) hypertension
[2023-11-13] MEDS ORDERED: METOPROLOL SUCC 50MG EXT REL TAB PO STA (15:15)
[2023-11-13] MEDS ORDERED: diazePAM 5 MG TABLET PO SCH (21:00)
[2023-11-13] MEDS ORDERED: CYCLOBENZAPRINE HCL 10 MG TAB PO SCH (21:00)
[2023-11-13] MEDS ORDERED: MELATONIN 3 MG TAB PO SCH (21:00)
[2023-11-13] MEDS: SULFAMETHOXAZOLE/TRIMETHOPRIM DS 800/160MG TAB PO SCH (21:21)
[2023-11-13] MEDS: OXYMETAZOLINE 0.05% 30 ML BTL NAE SCH (21:22)
--- NOTE | 2023-11-13 22:14 | Electrocardiogram Report ---
Test Reason : Blood Pressure : / mmHG Vent. Rate : 127 BPM Atrial Rate : 000 BPM P-R Int : 000 ms QRS Dur : 100 ms QT Int : 322 ms P-R-T Axes : 000 -10 038 degrees QTc Int : 467 ms Atrial fibrillation with rapid ventricular response with premature ventricular or aberrantly conducte d complexes Possible Inferior infarct (cited on or before 06-NOV-2023) Abnormal ECG When compared with ECG of 06-NOV-2023 15:44, No significant change was found Confirmed by Jl Bedolla ([id number]) on 11/13/2023 10:14:05 PM Referred By: REFERRED SELF Confirmed By:Jl Bedolla
[2023-11-14 06:23] LABS: Hematocrit (blood only) 46.5 % (42.0-52.0); Hemoglobin 15.4 g/dl (14.0-18.0); Mean Corpuscular Hemoglobin 28.2 pg (25.0-34.0); Mean Corpuscular Hgb Conc 33.1 g/dL (32.0-36.0); Mean Platelet Volume 10.4 fL (9.4-12.4); Platelet Count 194 K/uL (130-400); RDW Coefficient of Variation 13.6 % (11.5-14.5); Red Blood Count 5.47 M/uL (4.70-6.10); White Blood Count 12.83 K/ul (4.8-10.8)
[2023-11-14 06:47] LABS: BUN Creatinine Ratio 31.1 (10-20); Calcium 8.7 mg/dl (8.6-10.3); Creatinine Clr Calc Pharmacy 110.8 ml/min; Est GFR (Non-African American) 95.8 ml/min; Potassium 3.9 mmol/L (3.5-5.1)
--- NOTE | 2023-11-14 07:34 | Discharge Summary ---
"Date of Service November 14, 2023 Admission HPI Per Admitting Provider Patient is a 57-year-old male with a past medical history of cerebellar tonsillar being, nonischemic cardiomyopathy, atrial fibrillation, hypertension, asthma, HFrEF, and chronic dyspnea who presents to the hospital for evaluation of dyspnea. Patient has long history of subjective dyspnea without hypoxia and it seems over the past day or so, his dyspnea has progressively gotten worse so he came to the emergency room for evaluation. He denies any nausea, vomiting, chest pain, or headache. Of note, he was recently diagnosed with COVID-19 on 10/27/2023 and was placed on Paxil bid. While on Paxil bid he felt improvement in his symptoms. At that time, he also was in A-fib with RVR secondary to the stress of COVID. While on Paxlovid his Eliquis dose was reduced to 2.5 mg twice daily and was reverted once the Paxlovid dose was completed. 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 Otherwise without any complaints at this time. ED course: Patient brought back and evaluated by provider. Labs are significant for white count of 11.8, VBG pH of 7.4, lactate of 3.3, BNP of 439. Chest x-ray per my interpretation shows cardiomegaly without acute pulmonary edema. Patient was given a 500 cc bolus of normal saline and one 5 mg IV dose of metoprolol. His rate did improved to the low 100s. A 40 mg dose of IV Solu-Medrol was also given. The hospitalist service was then consulted for further recommendations and treatment. Admission Exam Per Admitting Provider Constitutional: WD/WN, vitals as above Eyes: + anicteric sclerae Neck: trachea midline, no thyromegaly Respiratory: normal respiratory effort, lungs clear to auscultation frequent cough Cardiovascular: Rate/Rhythm: + tachycardic and + irregularly irregular Chest (Breasts): normal inspection/palpation of breasts Gastrointestinal (Abdomen): normal bowel sounds, soft, nontender, no hepatosplenomegaly Musculoskeletal: Head/Neck/Chest: normocephalic and head atraumatic Skin: no rashes, warm and dry Neurologic: moves all extremities Psychiatric: A+Ox3, euthymic affect Principal Diagnosis AFib RVR ABRS Discharge Exam Gen: NAD, alert, interactive HEENT: Supple, no LAD, no thyromegaly, no JVD Resp:Non-labored, no wheezing/rhonchi/rales, CTAB, coughing CV:irregularly irregular, no M/R/G Abd: Soft, non-distended, no TTP, normoactive bowels, no masses Extr: 2+ dp bilaterally, no edema Skin: No rashes lesions or erythema OSE: Headache: Suboccipital/L>R Paraspinal hypertonicity w/ TTP --> Paraspinal kneading & stretching, Suboccipital Inhibition ---> Resolution of sx Discharge Data Allergies Allergy/AdvReac Type Severity Reaction Status Date / Time Tetracyclines Allergy Severe VOMITING Verified 11/13/23 02:43 AND RASH ceftriaxone [From Rocephin] Allergy Intermediate Hives Verified 11/13/23 02:43 amoxicillin Allergy Unknown RX AN Verified 11/13/23 02:43 clavulanic acid Allergy Unknown RX AN Verified 11/13/23 02:43 INFANT erythromycin base Allergy Unknown REACTION Verified 11/13/23 02:43 TO PCN AND AUGMENTIN Penicillins Allergy Unknown REACTION Verified 11/13/23 02:43 AN - UNKNOWN banana AdvReac Intermediate Vomiting Verified 11/13/23 02:43 hydromorphone [From Dilaudid] AdvReac Intermediate Vomiting Verified 11/13/23 02:43 Consultations 11/13/23 04:15 ED Decision to Admit Stat 11/13/23 06:53 Consult Cardiology Routine Hospital Course (1) Atrial fibrillation with rapid ventricular response: (2) Dyspnea: (3) Hypertension: (4) HFrEF (heart failure with reduced ejection fraction): (5) History of COVID-19: (6) Asthma: (7) Acute bacterial rhinosinusitis: Liz Prieto is a 57 M w/ PMH of nonischemic cardiomyopathy, atrial fibrillation, hypertension, asthma, HFrEF, chronic dyspnea, and cerebellar tonsillar ectopia who presents to the hospital for evaluation of dyspnea. Patient found to be in A-fib with RVR. Atrial fibrillation with rapid ventricular response: -Admit to telemetry, telemetry indication being A-fib with RVR -5 mg of IV metoprolol tartrate given in ED with some improvement in rate, as needed metoprolol pushes available -Consult cardiology, appreciate recommendations -Magnesium goal greater than 2, potassium goal greater than 4 -Continue Eliquis 5 mg twice daily --- Plan for outpatient cardioversion as scheduled to allow for 4 weeks of full anticoagulation --- Continue increased Metoprolol dosing at 200 mg, plan for addition of Spironolactone as outpatient Dyspnea/Cough | ABRS - Likely secondary to acute bacterial rhinosinusitis in the setting of recent COVID-19 infection and chronic asthma - Patient w/o hypoxia or evidence of fluid overload on examination - Improvement following Methylprednisolone dose in ED - Continue Tessalon perles PRN for cough --- Improved with symptomatic management and Bactrim DS BID, continue 7 day course as complete treatment of ABRS --- Continue Affrin nasal spray for total of 6 doses to improve nasal congestion Hypertension: - Continue metoprolol, Entresto HFrEF (heart failure with reduced ejection fraction): - Continue metoprolol, Entresto, Farxiga - Hold Lasix --- No evidence of fluid overload on examination, continue w/o Lasix History of COVID-19: -Recent diagnosis of COVID-19 on last admission, patient completed Paxlovid -Does not require isolation room at this time Asthma: - Continue inhalers and montelukast - S/p Solu-Medrol as above Disposition: Med/tele Diet: Heart Healthy DVT prophylaxis: Eliquis CODE STATUS: Full code Total Time Total Time Spent Total Time Spent (In Minutes): <30 Discharge Plan Discharge Items Patient Disposition: Home - Self-Care Reason For Visit: DYSPNEA Discharge Diagnosis: AFib RVR ABRS Activity: Per Instructions section Non-emergency contact: Primary Care Provider Call non-emergency contact if: you have any medication questions and your symptoms worsen Follow-up/Referrals: Brianna Cornell DO [Primary Care Provider] - Diet: Heart Healthy Addtl Attending Provider Instructions: You were admitted to the hospital for shortness of breath in the setting of an acute bacterial sinus infection and Atrial Fibrillation with rapid ventricular rate. You were evaluated by Cardiology while inpatient, who felt that your shortness of breath was not paired with the active A Fib w/ RVR. Atrial Fibrillation w/ RVR: During your inpatient admission, your dose of Metoprolol was increased from 150 mg to 200 mg daily. This was done to provide increased rate control moving forward. The plan remains for you to receive a cardioversion as an outpatient following 4 complete weeks of full dose anticoagulation with Eliquis. This will be the best way to reduce the risk of dislodging a clot during the cardioversion procedure as the medication will drastically reduce the risk of there being a clot present. Heart Failure: Clinically stable during presentation, you presented with no evidence of fluid overload or decompensation from a heart failure perspective. Cardiology recommended starting Spironolactone 25 mg PO daily for increased long-term benefit to your chronic heart failure. Because of active treatment of a bacterial infection with the antibiotic Bactrim, we will hold off on starting Spironolactone until your outpatient follow up. Acute Bacterial Rhinosinusitis: Given your recent COVID-19 infection with subsequent improvement followed by worsening symptoms, it is strongly suspected that you have a bacterial sinus infection. Continue supportive measures at home (decongestants, Tylenol, hydration). You were started on an antibiotic inpatient, Bactrim DS twice daily. I recommend taking this medication for 7 days total. In addition, you were started on Afrin (Oxymetazoline) nasal spray inpatient, use this medication for no more than 3 days (6 doses), this will help reduce nasal congestion and runny nose (rhinorrhea). Please follow up with your PCP (myself) within 1-2 weeks of discharge, at this visit we will address the addition of Spironolactone to your Heart Failure management regimen. It was a pleasure to be a part of your inpatient care, Brianna Cornell, Pending Studies at Discharge: No Stand-Alone Forms: My [facility], Smoking Cessation Medications and DC Order Prescriptions: New metoprolol succinate 50 mg Tablet Extended Release 24 Hr 200 mg PO DAILY 30 Days Qty: 120 0RF sulfamethoxazole-trimethoprim [Bactrim DS] 800-160 mg Tablet 1 tab PO Q12 6 Days Qty: 12 0RF oxymetazoline [Nasal [place] (oxymetazoline)] 0.05 % [place],Non-Aerosol 1 spray TG BID 3 Days Qty: 22 0RF Rx Instructions: Take 6 doses total (AM and PM) for 3 days Continued cyclobenzaprine 10 mg tablet 10 mg PO HS Qty: 30 0RF montelukast 10 mg tablet 10 mg PO QAM ascorbate calcium (vitamin C) 500 mg tablet 500 mg PO DAILY cholecalciferol (vitamin D3) 400 unit capsule 400 units PO DAILY Eliquis 5 mg tablet 5 mg PO BID Qty: 180 3RF Hold Instructions: Resume on 11/05/23. diazepam 5 mg tablet 5 mg PO HS melatonin 5 mg capsule 5 mg PO HS Entresto 97-103 mg tablet 1 tab PO BID Qty: 180 3RF fluticasone propion-salmeterol [Advair Diskus] 500-50 mcg/dose blister with device 1 inh inhalation BID Farxiga 10 mg tablet 10 mg PO DAILY Qty: 30 11RF Calcium Magnesium 500 mg calcium -250 mg Tablet 3 tab PO DAILY multivitamin Tablet 1 tab PO DAILY famotidine [Pepcid] 20 mg Tablet 20 mg PO BID furosemide [Lasix] 20 mg tablet 20 mg PO DAILY PRN (Reason: Weight Gain) fluticasone propionate 50 mcg/actuation spray,suspension 1 spray INTRANASAL DAILY meclizine 12.5 mg Tablet 12.5 mg PO TID PRN (Reason: vertigo/spinning) Qty: 20 0RF benzonatate 100 mg Capsule 100 mg PO TID PRN (Reason: cough) Qty: 30 0RF ondansetron 4 mg tablet,disintegrating 4 mg PO Q6H PRN (Reason: nausea and vomiting) Qty: 14 0RF albuterol sulfate 90 mcg/actuation aerosol powdr breath activated 2 puffs INH Q4H PRN (Reason: Shortness Of Breath Or Wheezing or cough) Qty: 1 0RF Patient Comments: 1 inh INH as needed; Rx Instructions: use with spacer device [id number] [Fioricet] 50-300-40 mg capsule 1 cap PO Q6H PRN (Reason: headache/migraine) Qty: 7 0RF Discontinued metoprolol succinate 50 mg tablet extended release 24 hr 150 mg PO DAILY Qty: 90 5RF Discharge Orders: Discharge Order (Routine); Ordered 11/14/23 Ordered By: Brianna Cornell Admission Data Admit Date/Time: 11/13/23 05:40 Attending Provider: Amrit Stapleton Admit Provider: Sekou Story Primary Care Provider: Brianna Cornell Other Providers: Trip Fragoso; Neptali Reis; Jose F Flores; Jhonny Vega; Wilder Deleon; Velasquez Ventura; Alfonso Lyle Jr; Jl Bedolla; Sheri Kirkland; Uma Anderson; Gopi Ibrahim; Gopi Hawley; Gerald Delacruz; Gabriella Elizabeth; Patricia Schmitt; Jeison Mae; Te Serna; Silas Valle Other Interventions: Discharge Summary Assessment (RN) Last Done: 11/14/23 11:27 Supervising Physician Co-Signing Physician Notes I personally examined the patient and verified all khalil points of history and exam, discussed case, and agree with decision making with Dr Cornell feeling ok enough to go home. head pressure but feels like he can manage at home vitals noted nad heent nc at mmm breathing unlabored no accessory muscles good effort skin no rashes no pallor or icterus neuro no focal deficits bacterial overgrowth sinusitis - secondary to initial covid infection. stable for home. bactrim due to allergies. afib, dilated cardiomyopathy -safe for home, outpt f/u - disucssed not starting spironolactone until after done wtih bactrim due to K risk; discussed having BMP after starting spironolactone regardless. otherwise as above Resident Activity Tracking Resident Involvement: Resident Care Provided Care Provided: Adult Hospital Medicine"
[2023-11-14] MEDS: FLUTICASONE PROPIONATE NA SPR 16 GM BTL SCH (08:22)
[2023-11-14] MEDS: OXYMETAZOLINE 0.05% 30 ML BTL NAE SCH (08:23)
[2023-11-14] MEDS: VALSARTAN/SACUBITRIL 103/97MG TAB PO SCH (08:24)
[2023-11-14] MEDS: SULFAMETHOXAZOLE/TRIMETHOPRIM DS 800/160MG TAB PO SCH (08:24)
[2023-11-14] MEDS: guaiFENesin 600 MG TABCR PO SCH (08:25)
[2023-11-14] MEDS: APIXABAN 5 MG TABLET PO SCH (08:25)
[2023-11-14] MEDS: MONTELUKAST SODIUM 10 MG TABLET PO SCH (08:26)
[2023-11-14] MEDS: FAMOTIDINE 20 MG TAB PO SCH (08:27)
[2023-11-14] MEDS: CHOLECALCIFEROL 400 UNITS 10 MCG TAB PO SCH (08:27)
[2023-11-14] MEDS: FLUTICASONE/VILANTEROL 100/25MCG 14 PUFFS/INHALER INH SCH (08:28)
[2023-11-14] MEDS ORDERED: METOPROLOL SUCC 50MG EXT REL TAB PO SCH (09:00)
--- NOTE | 2023-11-14 17:19 | Billing Data ---
Date of Service November 14, 2023 Coding Level of Care Code 05346 IN/OBS DISCH 30 MIN/LESS
--- NOTE | 2023-11-14 23:09 | Billing Data ---
Date of Service November 14, 2023 Coding Level of Care Code 82338 INT INP/OBS CARE
== END 2023-11-14 13:57 | disposition home or self-care (01) | DRG 309 ==
LOC: ED 02:23 → 2S 05:40 → INTOOBSV 05:40 → SUATTDRO 05:40 → 2S 06:18

== ENCOUNTER 2023-12-14 14:14 | Inpatient (IN) ==
--- NOTE | 2023-12-14 14:22 | ED Triage Note ---
Date of Service December 14, 2023 Provider in Triage Author: Miguel Bar History of Present Illness This patient was briefly evaluated while in triage. An abbreviated physical exam was performed. This patient is a 58-year-old Male who presents to the ED for evaluation of headache fever chills rhinorrnea. Brief episode of chest pain this morning. These symptoms began yesterday. Was cardioverted a few weeks ago. Was admitted for covid 1.5 months ago. Headache has become unbearable at this point. History of migraines. Has been taking tylenol. Fever yesterday 100.0 Physical Exam CONSTITUTIONAL: mildly ill appearing, nontoxic SKIN: pink, warm, dry CARDIAC: regular rate and rhythm RESPIRATORY: in no respiratory distress, lungs clear to auscultation Initial orders for labs and / or imaging were placed and patient was placed in the waiting area until a bed is available. Please see further documentation for the full ED course.
[2023-12-14 15:06] LABS: Hematocrit (blood only) 48.3 % (42.0-52.0); Hemoglobin 16.4 g/dl (14.0-18.0); Mean Corpuscular Hemoglobin 28.2 pg (25.0-34.0); Mean Platelet Volume 10.1 fL (9.4-12.4); Platelet Count 212 K/uL (130-400); RDW Coefficient of Variation 13.9 % (11.5-14.5); RDW Standard Deviation 41.6 fL (36.4-46.3); Red Blood Count 5.82 M/uL (4.70-6.10); White Blood Count 2.33 K/ul (4.8-10.8)
[2023-12-14 15:23] LABS: Albumin Globulin Ratio 1.4 (0.9-2); Albumin Level 4.4 gm/dl (3.4-5.0); BUN Creatinine Ratio 16.3 (10-20); Bilirubin,Total 1.2 mg/dl (0.2-1.0); Calcium 9.9 mg/dl (8.6-10.3); Creatinine Clr Calc Pharmacy 100.6 ml/min; Est GFR (African American) 99.5 ml/min; Est GFR (Non-African American) 85.8 ml/min; Globulin 3.2 gm/dl (2.5-4.0); Potassium 4.3 mmol/L (3.5-5.1); Total Protein 7.6 gm/dl (6.0-8.3)
[2023-12-14 15:29] LABS: Troponin I High Sensitivity 9.5 pg/ml (0-20)
--- NOTE | 2023-12-14 15:49 | CT Scan Report ---
CT OF THE HEAD WITHOUT CONTRAST CLINICAL HISTORY: Severe headache. COMPARISON STUDY: Head CT October 27, 2023. MRI of the brain October 30, 2023. CT DOSE: 625.8 mGy.cm TECHNIQUE: Helical axial images of the head were obtained without IV contrast. Automated exposure con trol was utilized for the study. A dose lowering technique was utilized adhering to the principles o f ALARA. FINDINGS: No acute intracranial hemorrhage, midline shift or mass effect is present. The ventricular system is unremarkable. Fullness at the level of the foramen magnum remains unchanged from earlier ex ams. No extra-axial collections are present. There are no findings to suggest acute dural sinus throm bosis or acute territorial infarct. There are no calvarial fractures. There is mild ethmoid sinus muc osal thickening. IMPRESSION: No acute intracranial findings. No change in appearance of the brain. ACT 112: Negative or not required by law. Electronically signed by: Vasile Parikh M.D. 12/14/2023 3:48 PM
[2023-12-14 16:03] LABS: Adenovirus PCR Not Detected (NotDetected); Bordetella parapertussis PCR Not Detected (NotDetected); Bordetella pertussis PCR Not Detected (NotDetected); Chlamydia pneumoniae PCR Not Detected (NotDetected); Coronavirus 229E PCR Not Detected (NotDetected); Coronavirus CoV-2 (COVID19)PCR Not Detected (NotDetected); Coronavirus HKU1 PCR Not Detected (NotDetected); Coronavirus NL63 PCR Not Detected (NotDetected); Coronavirus OC43PCR Not Detected (NotDetected); Human Metapneumovirus PCR Not Detected (NotDetected); Influenza A PCR Not Detected (NotDetected); Influenza B PCR Not Detected (NotDetected); Mycoplasma pneumoniae PCR Not Detected (NotDetected); Parainfluenza Virus 1 PCR Not Detected (NotDetected); Parainfluenza Virus 2 PCR Not Detected (NotDetected); Parainfluenza Virus 3 PCR Not Detected (NotDetected); Parainfluenza Virus 4 PCR Not Detected (NotDetected); Respiratory Syncytial VirusPCR Not Detected (NotDetected); Rhinovirus/Enterovirus PCR Not Detected (NotDetected)
--- NOTE | 2023-12-14 16:05 | XRay Report ---
XR chest 1V not portable HISTORY: 58 years-old Male fever, cough acute cough with fever COMPARISON: 11/13/2023 TECHNIQUE: PA view of the chest FINDINGS: Cardiomediastinal and hilar silhouettes are within normal limits. No pneumothorax, pleural effusion o r airspace consolidation. The bones of the chest appear grossly intact. IMPRESSION: No acute process. ACT 112: Negative or not required by law. The above report was generated using voice recognition software. It may contain grammatical, syntax o r spelling errors. Electronically signed by: Maynor Lopez M.D. 12/14/2023 4:04 PM
[2023-12-14 16:07] LABS: Basophils # (auto) 0.01 K/uL (0.00-0.20); Basophils % (auto) 0.4 %; Eosinophils # (auto) 0.14 K/uL (0.00-0.50); Immature Granulocytes # (auto) 0.01 K/uL (0.01-0.20); Immature Granulocytes % (auto) 0.4 %; Lymphocytes # (auto) 1.02 K/uL (1.20-3.40); Lymphocytes % (auto) 43.8 %; Monocytes # (auto) 0.97 K/uL (0.11-0.59); Monocytes % (auto) 41.6 %; Neutrophils # (auto) 0.18 K/uL (1.40-6.50); Neutrophils % (auto) 7.8 %
--- NOTE | 2023-12-14 16:43 | Electrocardiogram Report ---
Test Reason : Blood Pressure : / mmHG Vent. Rate : 058 BPM Atrial Rate : 058 BPM P-R Int : 166 ms QRS Dur : 102 ms QT Int : 416 ms P-R-T Axes : 066 006 056 degrees QTc Int : 408 ms Sinus bradycardia Abnormal ECG When compared with ECG of 02-DEC-2023 07:36, Premature ventricular complexes are no longer Present QT has shortened Confirmed by Gopi Hawley ([id number]) on 12/14/2023 4:43:19 PM Referred By: Confirmed By:Niko Hawley
--- NOTE | 2023-12-14 17:56 | Emergency Department Note ---
Impression & Plan Neutropenic fever, Nonischemic cardiomyopathy, Cough with congestion of paranasal sinus, Migraine ED Provider Note NAME: JOSELO PERALTA AGE: 58 SEX: M ARRIVES VIA: Walk-In INFORMANT: Patient ED PROVIDER(S): Miguel A Temple MD CHIEF COMPLAINT: Fever, headache, sinus congestion PLAN: Disposition: Admit MEDICAL DECISION MAKING: The patient is a pleasant 58-year-old gentleman with a past medical history of chronic migraines, nonischemic cardiomyopathy, atrial fibrillation on Eliquis status post cardioversion on 12/02, recent admission to this facility at the beginning of October 2023 for COVID-19 and then towards the end of October who presents to the emergency department via walk-in accompanied by his for evaluation of fever, cough, sinus congestion and worsening of his chronic headache last night with associated fever where his temperature was 100 last night. He reports 1 episode of vomiting when his headache was most severe. He correlates his ongoing headache to having a cardioversion which was performed on December 02 for atrial fibrillation but does admit that he had his headache prior to this stemming from his recent COVID-19 infection. He is also following with dermatology for skin eruption which they feel is attributed to his COVID-19 infection and/or Paxlovid and is currently being treated with topical fluorouracil and these 3 facial lesions are improving. He denies chest pain, shortness of breath. He denies any diarrhea. He reports having a single episode of burning with urination which resolved once he initiated the stream. Of note, the patient did arrive to emergency department during time of high volume, acuity and prolonged emergency department waiting times. Critical pathways initiated from triage. On my evaluation the patient is fatigued appearing but no acute distress, afebrile with stable vital signs. He appears clinically dry. He has boggy nasal turbinates. Bilateral TMs with scant middle ear effusion without significant TM injection. He has approximate 1 cm skin lesion of bilateral maxillary areas and 1 lesion left of midline on his forehead. He has no focal neurologic deficits. Neck is supple full range of motion. EKG without overt acute ischemia. CXR negative for acute cardiopulmonary process per my personal preliminary review/interpretation. WBC 2.3 with ANC of 0.18 demonstrating new neutropenia of unclear etiology. There is mild lymphopenia of 1.02. H/H and platelets within normal limits. Chemistry without metabolic acidosis. Electrolytes LFTs without significant abnormality. High-sensitivity troponin 9.5, within normal limits. Respiratory viral panel/BioFire was negative. Given the patient's neutropenia and report of fevers last night and ongoing myalgias we did agree with referral to hospital service for admission. Blood cultures were obtained and empiric treatment initiated with cefepime at this time. Unclear etiology to the patient's fever and congestion at this time however given the patient's unremarkable chest x-ray and sinus symptoms with mucosal thickening on CT symptoms possibly related to sinusitis. While the patient's BioFire was negative his symptoms are relatively new with feverishness and bodyaches only beginning yesterday and so viral illness is still a consideration. Patient is deny any known recent tick bites. Do have dogs at home but have not found any ticks on them recently. Additional symptomatic treatment of patient's headache/migraine was provided with gentle IV fluid hydration in setting of the patient's history of nonischemic or myopathy, IV APAP, Compazine, diphenhydramine and dexamethasone. Case was discussed with Dr. Jacobs [facility] hospitalist, who will evaluate the patient for admission. Further management per admitting team. Triage Nursing notes reviewed and agree them. Prior/external medical records reviewed Vital Signs: reviewed Differential diagnosis: Viral syndrome, otitis, pharyngitis, pneumonia, influenza, meningitis, urinary tract infection, sepsis, bacteremia, as well as other pathologies. ER treatment provided: See below. Diagnostics interpreted by me: ECG: Sinus bradycardia, 58 bpm, no ectopy, no overt ST elevation or depression, QTc 408, QRS 102 Cardiac Monitoring: An order for continuous cardiac monitoring was placed and demonstrated Sinus bradycardia, 58 bpm, no ectopy. Laboratory studies: See below Imaging studies: See below Consultation(s): Case was discussed with Dr. Jacobs [facility] hospitalist, who will evaluate the patient for admission. HPI: The patient is a pleasant 58-year-old gentleman with a past medical history of chronic migraines, nonischemic cardiomyopathy, atrial fibrillation on Eliquis status post cardioversion on 12/02, recent admission to this facility at the beginning of October 2023 for COVID-19 and then towards the end of October who presents to the emergency department via walk-in accompanied by his for evaluation of fever, cough, sinus congestion and worsening of his chronic headache last night with associated fever where his temperature was 100 last night. He reports 1 episode of vomiting when his headache was most severe. He correlates his ongoing headache to having a cardioversion which was performed on December 02 for atrial fibrillation but does admit that he had his headache prior to this stemming from his recent COVID-19 infection. He is also following with dermatology for skin eruption which they feel is attributed to his COVID-19 infection and/or Paxlovid and is currently being treated with topical fluorouracil and these 3 facial lesions are improving. He denies chest pain, shortness of breath. He denies any diarrhea. He reports having a single episode of burning with urination which resolved once he initiated the stream. ROS: See above HPI for pertinent positives & negatives. A total of 10 systems reviewed and were otherwise negative. VITALS:See Below PHYSICAL EXAMINATION: GENERAL: Awake, alert, fatigued-appearing, in no distress HENT: Normocephalic, atraumatic. Boggy nasal turbinates. Bilateral TMs with scant middle ear effusion without significant TM injection. Oropharynx with dry mucous membranes and otherwise unremarkable. EYES: Normal conjunctiva. Sclera non-icteric. EOMI. No nystamgus. PEARRL. NECK: Supple. No nuchal rigidity. FROM. No JVD. RESPIRATORY: Clear to auscultation. CARDIAC: Regular rate, normal rhythm. Extremities warm and well perfused. Pulses equal. ABDOMEN: Soft, non-distended. No tenderness to palpation. No rebound or guarding. No masses. RECTAL: Deferred. MUSCULOSKELETAL: Chest examination reveals no tenderness. The back is symmetrical on inspection without obvious abnormality. There is no CVA tenderness to palpation. No joint edema. LOWER EXTREMITIES: Calves are equal size bilaterally and non-tender. No edema. No discoloration. NEURO: Normal sensorium. No sensory or motor deficits noted. SKIN: 1 cm skin lesion of bilateral maxillary areas and 1 lesion left of midline on his forehead. No jaundice noted. Miguel A Temple MD Past Med/Surg History Medical History Nonischemic cardiomyopathy History of COVID-19 10/27/23 tested positive at [facility] through the emergency room. treated with paxlovid on 10/27/23. symptoms: flu symptoms. Migraine hx Atrial fibrillation s/p cardioversion 01/2023 [place]. on Eliquis. Follows with Dr. Rios. 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 CHF (congestive heart failure) Chronic dyspnea History of ventricular tachycardia Restless leg syndrome Hypertension Surgical History History of cardioversion (~01/2023) at [facility] Family history of reaction to anesthesia MOTHER AND DAUGHTER>N/V Nausea and vomiting after administration of anesthetic agent History of arthroscopy left knee Hx of vasectomy History of colonoscopy History of tooth extraction History of ear surgery ? 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 Other Information That Helps Us Care for You: No Feels Safe at Home: No Is there a partner from a previous relationship who is making you feel unsafe now?: No Any Concerns about Your Family Situation: No Would You Like to Speak to Someone About Your Situation: No Safety Concerns: Feels Safe At This Time Assistive Devices: None Allergies Allergies Allergy/AdvReac Type Severity Reaction Status Date / Time ceftriaxone [From Rocephin] Allergy Severe Throat Verified 12/14/23 19:30 Swelling Tetracyclines Allergy Severe VOMITING Verified 12/14/23 19:30 AND RASH amoxicillin Allergy Unknown RX AN Verified 12/14/23 19:30 clavulanic acid Allergy Unknown RX AN Verified 12/14/23 19:30 erythromycin base Allergy Unknown REACTION Verified 12/14/23 19:30 TO PCN AND AUGMENTIN Penicillins Allergy Unknown REACTION Verified 12/14/23 19:30 AN INFANT - UNKNOWN banana AdvReac Intermediate Vomiting Verified 12/14/23 19:30 hydromorphone [From Dilaudid] AdvReac Intermediate Vomiting Verified 12/14/23 19:30 Home Meds Home Medications Medication Instructions Recorded Confirmed ascorbate calcium (vitamin C) 500 500 mg PO QAM 08/17/19 12/14/23 mg tablet cholecalciferol (vitamin D3) 10 400 units PO QAM 08/17/19 12/14/23 mcg (400 unit) capsule montelukast 10 mg tablet 10 mg PO QAM 08/17/19 12/14/23 diazepam 5 mg tablet 5 mg PO HS 09/03/22 12/14/23 melatonin 5 mg capsule 5 mg PO HS 09/03/22 12/14/23 calcium carb-Ca gluc 500 mg 3 tab PO QAM 01/05/23 12/14/23 calcium-magnesium ox-Mg gluc 250 mg tablet (Calcium Magnesium) multivitamin 1 tab PO QAM 01/05/23 12/14/23 famotidine 20 mg tablet (Pepcid) 20 mg PO BID PRN Heartburn 01/30/23 12/14/23 furosemide 20 mg tablet (Lasix) 20 mg PO DAILY PRN Weight Gain 01/30/23 12/14/23 fluticasone 500 mcg-salmeterol 50 1 inh inhalation BID 02/19/23 12/14/23 mcg/dose blistr powdr for inhalation (Advair Diskus) fluticasone propionate 50 1 spray intranasal DAILY 10/27/23 12/14/23 mcg/actuation nasal spray,suspension dapagliflozin propanediol 10 mg 10 mg PO QAM 11/25/23 12/14/23 tablet (Farxiga) metoprolol succinate 50 mg 200 mg PO QAM 11/25/23 12/14/23 tablet,extended release 24 hr Previous Rx's Medication Instructions Recorded cyclobenzaprine 10 mg tablet 10 mg PO HS #30 tabs 08/17/19 apixaban 5 mg tablet (Eliquis) 5 mg PO BID #180 tabs 01/22/23 sacubitril 97 mg-valsartan 103 mg 1 tab PO BID #180 tabs 03/10/23 tablet (Entresto) albuterol sulfate 90 mcg/actuation 2 puffs inhalation Q4H PRN 11/02/23 breath activated powder inhaler Shortness Of Breath Or Wheezing or cough #1 ea ozaiieyklo-cvleunbtwqboy-obrepahh 1 cap PO Q6H PRN headache/migraine 11/02/23 50 mg-300 mg-40 mg capsule #7 caps (Fioricet) ondansetron 4 mg disintegrating 4 mg PO Q6H PRN nausea and 11/02/23 tablet vomiting #14 tabs spironolactone 25 mg tablet 25 mg PO DAILY #30 tabs 11/30/23 Results & Data (ED) Vital Signs Vital Signs - 24 hr 12/14/23 14:15 12/14/23 17:50 12/14/23 18:00 Temperature 36.3 C L Temperature Source Oral Pulse Rate 69 53 L Pulse Rate [Apical] 57 L Respiratory Rate 18 20 13 Respiratory Effort / Characteristics Non-Labored Spontaneous Non-Labored Respiratory Depth Normal Normal Respiratory Pattern Regular Blood Pressure 121/79 119/79 Blood Pressure [Right Arm] 120/78 Blood Pressure Mean 93 92 Blood Pressure Mean [Right Arm] 92 Pulse Oximetry 95 97 95 Oxygen Delivery Method Room Air Room Air Room Air Sepsis Recent Fever Within 48 Hours Yes Sepsis New/Unexplained Change in Mental Status N/A Sepsis Action Taken by Nursing No Action Required 12/14/23 18:04 12/14/23 18:30 12/14/23 19:01 Temperature Temperature Source Pulse Rate 51 L 54 L 56 L Pulse Rate [Apical] Respiratory Rate 13 14 Respiratory Effort / Characteristics Respiratory Depth Respiratory Pattern Blood Pressure 115/71 Blood Pressure [Right Arm] Blood Pressure Mean 85 Blood Pressure Mean [Right Arm] Pulse Oximetry 98 96 Oxygen Delivery Method Room Air Room Air Sepsis Recent Fever Within 48 Hours Sepsis New/Unexplained Change in Mental Status Sepsis Action Taken by Nursing 12/14/23 19:30 Temperature Temperature Source Pulse Rate 55 L Pulse Rate [Apical] Respiratory Rate 18 Respiratory Effort / Characteristics Respiratory Depth Respiratory Pattern Blood Pressure 125/70 Blood Pressure [Right Arm] Blood Pressure Mean 88 Blood Pressure Mean [Right Arm] Pulse Oximetry 99 Oxygen Delivery Method Room Air Sepsis Recent Fever Within 48 Hours Sepsis New/Unexplained Change in Mental Status Sepsis Action Taken by Nursing Laboratory Data Attestation: I reviewed the patient's lab results. 12/14/23 14:45 12/14/23 14:45 Lab Results 12/14/23 12/14/23 12/14/23 Range/Units 14:37 14:45 18:55 WBC 2.33 L (4.8-10.8) K/ul RBC 5.82 (4.70-6.10) M/uL Hgb 16.4 (14.0-18.0) g/dl Hct 48.3 (42.0-52.0) % MCV 83.0 (80.0-100.0) fL MCH 28.2 (25.0-34.0) pg MCHC 34.0 (32.0-36.0) g/dL RDW Std Deviation 41.6 (36.4-46.3) fL RDW Coeff of Nam 13.9 (11.5-14.5) % Plt Count 212 (130-400) K/uL MPV 10.1 (9.4-12.4) fL Immature Gran % (Auto) 0.4 % Neut % (Auto) 7.8 % Lymph % (Auto) 43.8 % [place] % (Auto) 41.6 % Eos % (Auto) 6.0 % Baso % (Auto) 0.4 % Neut # (Auto) 0.18 L* (1.40-6.50) K/uL Lymph # (Auto) 1.02 L (1.20-3.40) K/uL [place] # (Auto) 0.97 H (0.11-0.59) K/uL Eos # (Auto) 0.14 (0.00-0.50) K/uL Baso # (Auto) 0.01 (0.00-0.20) K/uL Immature Gran # (Auto) 0.01 (0.01-0.20) K/uL Sodium 135 L (136-145) mmol/L Potassium 4.3 (3.5-5.1) mmol/L Chloride 101 (98-107) mmol/L Carbon Dioxide 28 (21-32) mmol/L Anion Gap 6 (3-11) BUN 16 (6-23) mg/dl Creatinine 0.98 (0.6-1.4) mg/dl Est Cr Clr Drug Dosing 100.6 ml/min Est GFR ( Amer) 99.5 ml/min Est GFR (Non-Af Amer) 85.8 ml/min BUN/Creatinine Ratio 16.3 (10-20) Glucose 101 H (70-99(Fasting)) mg/dl Lactate 0.9 (0.4-2.0) mmol/L Calcium 9.9 (8.6-10.3) mg/dl Total Bilirubin 1.2 H (0.2-1.0) mg/dl AST 18 (13-39) U/L ALT 13 (7-52) U/L Alkaline Phosphatase 51 (34-104) U/L Troponin I High Sens 9.5 (0-20) pg/ml Total Protein 7.6 (6.0-8.3) gm/dl Albumin 4.4 (3.4-5.0) gm/dl Globulin 3.2 (2.5-4.0) gm/dl Albumin/Globulin Ratio 1.4 (0.9-2) Procalcitonin < 0.05 (0-0.5) ng/ml Urine Color Urine Appearance (Clear) Urine pH (4.5-7.5) Ur Specific [place] (1.000-1.030) Urine Protein (Negative) Urine Glucose (UA) (Negative) Urine Ketones (Negative) Urine Blood (Negative) Urine Nitrite (Negative) Urine Bilirubin (Negative) Urine Urobilinogen (Negative) Ur Leukocyte Esterase (Negative) Nasal Screen MRSA (PCR) (Negative) Adenovirus (PCR) Not Detected (NotDetected) Anaplasma Smear See Comment B. pertussis DNA (PCR) Not Detected (NotDetected) B.parapertussis DNA PCR Not Detected (NotDetected) Lyme Disease IgG Ab Negative (Negative) Lyme Disease IgM Ab Negative (Negative) C. pneumoniae DNA (PCR) Not Detected (NotDetected) Coronavirus OC43 (PCR) Not Detected (NotDetected) Coronavirus HKU1 (PCR) Not Detected (NotDetected) Coronavirus 229E (PCR) Not Detected (NotDetected) SARS-CoV-2 (PCR) Not Detected (NotDetected) Coronavirus NL63 (PCR) Not Detected (NotDetected) Human Metapneumovir PCR Not Detected (NotDetected) Influenza Type A (PCR) Not Detected (NotDetected) Influenza Type B (PCR) Not Detected (NotDetected) M. pneumoniae (PCR) Not Detected (NotDetected) Parainfluenza 1 (PCR) Not Detected (NotDetected) Parainfluenza 2 (PCR) Not Detected (NotDetected) Parainfluenza 3 (PCR) Not Detected (NotDetected) Parainfluenza 4 (PCR) Not Detected (NotDetected) RSV (PCR) Not Detected (NotDetected) Entero/Rhino (PCR) Not Detected (NotDetected) 12/14/23 12/14/23 Range/Units 19:10 19:26 WBC (4.8-10.8) K/ul RBC (4.70-6.10) M/uL Hgb (14.0-18.0) g/dl Hct (42.0-52.0) % MCV (80.0-100.0) fL MCH (25.0-34.0) pg MCHC (32.0-36.0) g/dL RDW Std Deviation (36.4-46.3) fL RDW Coeff of Nam (11.5-14.5) % Plt Count (130-400) K/uL MPV (9.4-12.4) fL Immature Gran % (Auto) % Neut % (Auto) % Lymph % (Auto) % [place] % (Auto) % Eos % (Auto) % Baso % (Auto) % Neut # (Auto) (1.40-6.50) K/uL Lymph # (Auto) (1.20-3.40) K/uL [place] # (Auto) (0.11-0.59) K/uL Eos # (Auto) (0.00-0.50) K/uL Baso # (Auto) (0.00-0.20) K/uL Immature Gran # (Auto) (0.01-0.20) K/uL Sodium (136-145) mmol/L Potassium (3.5-5.1) mmol/L Chloride (98-107) mmol/L Carbon Dioxide (21-32) mmol/L Anion Gap (3-11) BUN (6-23) mg/dl Creatinine (0.6-1.4) mg/dl Est Cr Clr Drug Dosing ml/min Est GFR ( Amer) ml/min Est GFR (Non-Af Amer) ml/min BUN/Creatinine Ratio (10-20) Glucose (70-99(Fasting)) mg/dl Lactate (0.4-2.0) mmol/L Calcium (8.6-10.3) mg/dl Total Bilirubin (0.2-1.0) mg/dl AST (13-39) U/L ALT (7-52) U/L Alkaline Phosphatase (34-104) U/L Troponin I High Sens (0-20) pg/ml Total Protein (6.0-8.3) gm/dl Albumin (3.4-5.0) gm/dl Globulin (2.5-4.0) gm/dl Albumin/Globulin Ratio (0.9-2) Procalcitonin (0-0.5) ng/ml Urine Color Yellow Urine Appearance Clear (Clear) Urine pH 6.5 (4.5-7.5) Ur Specific [place] 1.026 (1.000-1.030) Urine Protein Negative (Negative) Urine Glucose (UA) 3+ H (Negative) Urine Ketones Trace H (Negative) Urine Blood Negative (Negative) Urine Nitrite Negative (Negative) Urine Bilirubin Negative (Negative) Urine Urobilinogen Negative (Negative) Ur Leukocyte Esterase Negative (Negative) Nasal Screen MRSA (PCR) Negative (Negative) Adenovirus (PCR) (NotDetected) Anaplasma Smear B. pertussis DNA (PCR) (NotDetected) B.parapertussis DNA PCR (NotDetected) Lyme Disease IgG Ab (Negative) Lyme Disease IgM Ab (Negative) C. pneumoniae DNA (PCR) (NotDetected) Coronavirus OC43 (PCR) (NotDetected) Coronavirus HKU1 (PCR) (NotDetected) Coronavirus 229E (PCR) (NotDetected) SARS-CoV-2 (PCR) (NotDetected) Coronavirus NL63 (PCR) (NotDetected) Human Metapneumovir PCR (NotDetected) Influenza Type A (PCR) (NotDetected) Influenza Type B (PCR) (NotDetected) M. pneumoniae (PCR) (NotDetected) Parainfluenza 1 (PCR) (NotDetected) Parainfluenza 2 (PCR) (NotDetected) Parainfluenza 3 (PCR) (NotDetected) Parainfluenza 4 (PCR) (NotDetected) RSV (PCR) (NotDetected) Entero/Rhino (PCR) (NotDetected) Administered Medications Apixaban (Apixaban 5 Mg Tablet) 5 mg PO BID DONNIE Stop: 01/13/24 21:40 Last Admin: 12/14/23 22:48 Dose: 5 mg Documented By: SYLVESTER Cyclobenzaprine HCl (Cyclobenzaprine Hcl 10 Mg Tab) 10 mg PO HS DONNIE Stop: 01/13/24 21:40 Last Admin: 12/14/23 22:48 Dose: 10 mg Documented By: SYLVESTER Fluticasone/Vilanterol (Fluticasone/Vilanterol 200/25mcg 14 Puffs/Inhaler) 1 puffs INH DAILY DONNIE Stop: 01/13/24 22:14 Last Admin: 12/14/23 23:02 Dose: 1 puffs Documented By: SYLVESTER Melatonin (Melatonin 3 Mg Tab) 6 mg PO HS DONNIE Stop: 01/13/24 22:14 Last Admin: 12/14/23 22:48 Dose: 6 mg Documented By: SYLVESTER Sacubitril/Valsartan (Valsartan/Sacubitril 103/97mg Tab) 1 tab PO BID DONNIE Stop: 01/13/24 21:40 Last Admin: 12/14/23 23:02 Dose: 1 tab Documented By: SYLVESTER Discontinued Medications Dexamethasone Sodium Phosphate (DexamethasonePf 10 Mg/Ml Vial) 10 mg IV NOW ONE Stop: 12/14/23 18:35 Last Admin: 12/14/23 19:10 Dose: 10 mg Documented By: SCOUT Diphenhydramine HCl (Diphenhydramine 50 Mg/Ml Vial) 25 mg IV NOW STA Stop: 12/14/23 18:35 Last Admin: 12/14/23 19:10 Dose: 25 mg Documented By: SCOUT Guaifenesin (Guaifenesin 600 Mg Tabcr) 1,200 mg PO NOW STA Stop: 12/14/23 18:37 Last Admin: 12/14/23 19:00 Dose: 1,200 mg Documented By: SCOUT Acetaminophen (Ofirmev) 1,000 mg in 100 mls @ 400 mls/hr IV NOW STA Stop: 12/14/23 18:34 Last Infusion: 12/14/23 19:30 Dose: Infused Documented By: Admin: 12/14/23 19:13 Dose: 400 mls/hr Documented By: SCOUT Cefepime HCl (Maxipime) 2,000 mg in 20 mls @ 5 mls/min IV NOW STA; Protocol Stop: 12/14/23 18:24 Last Admin: 12/14/23 19:56 Dose: Not Given Documented By: SCOUT Sodium Chloride (Nss) 500 mls @ 125 mls/hr IV .Q4H DONNIE Stop: 01/13/24 18:44 Last Infusion: 12/14/23 21:58 Dose: Infused Documented By: Admin: 12/14/23 19:13 Dose: 125 mls/hr Documented By: SCOUT Prochlorperazine (Compazine) 1 mls @ 1 mls/min IV ONE ONE Stop: 12/14/23 18:35 Last Admin: 12/14/23 19:07 Dose: 1 mls/min Documented By: SCOUT Meropenem 500 mg/ Syringe 10 mls @ 2 mls/min IV NOW STA; Protocol Stop: 12/14/23 20:29 Last Admin: 12/14/23 20:43 Dose: 2 mls/min Documented By: SCOUT Sodium Chloride (Sodium Chloride 0.65% Na Soln 45 Ml ([place])) 2 sprays NA NOW ONE Stop: 12/14/23 18:37 Last Admin: 12/14/23 19:02 Dose: 2 sprays Documented By: SCOUT Imaging Data Radiologist's Impression: Chest X-Ray 12/14/23 14:22 XR chest 1V not portable HISTORY: 58 years-old Male fever, cough acute cough with fever COMPARISON: 11/13/2023 TECHNIQUE: PA view of the chest FINDINGS: Cardiomediastinal and hilar silhouettes are within normal limits. No pneumothorax, pleural effusion or airspace consolidation. The bones of the chest appear grossly intact. IMPRESSION: No acute process. ACT 112: Negative or not required by law. The above report was generated using voice recognition software. It may contain grammatical, syntax or spelling errors. Electronically signed by: Maynor Lopez M.D. 12/14/2023 4:[address] 12/14/23 14:22 CT OF THE HEAD WITHOUT CONTRAST CLINICAL HISTORY: Severe headache. COMPARISON STUDY: Head CT October 27, 2023. MRI of the brain October 30, 2023. CT DOSE: 625.8 mGy.cm TECHNIQUE: Helical axial images of the head were obtained without IV contrast. Automated exposure control was utilized for the study. A dose lowering technique was utilized adhering to the principles of ALARA. FINDINGS: No acute intracranial hemorrhage, midline shift or mass effect is present. The ventricular system is unremarkable. Fullness at the level of the foramen magnum remains unchanged from earlier exams. No extra-axial collections are present. There are no findings to suggest acute dural sinus thrombosis or acute territorial infarct. There are no calvarial fractures. There is mild ethmoid sinus mucosal thickening. IMPRESSION: No acute intracranial findings. No change in appearance of the brain. ACT 112: Negative or not required by law. Electronically signed by: Vasile Parikh M.D. 12/14/2023 3:48 PM Discharge Plan Visit Data Chief Complaint: Flu Like Symptoms Stated Complaint: FEVER/HEADACHE/ACHES &PAINS/NAUSEA ED Provider: Miguel A Temple Discharge Problem: Neutropenic fever, Nonischemic cardiomyopathy, Cough with congestion of paranasal sinus, Migraine Patient Disposition: Admitted As Inpatient Discharge Instructions Interventions: ED Discharge Assessment Last Done: 12/14/23 21:27 Discharge Problem: Migraine Qualifiers: Migraine type: unspecified Status migrainosus presence: with status migrainosus Intractability: intractable Qualified Code(s): G43.911 - Migraine, unspecified, intractable, with status migrainosus
[2023-12-14] MEDS ORDERED: ACETAMINOPHEN 1,000 MG/100 ML VIAL IV STA (18:20)
[2023-12-14] MEDS ORDERED: PROCHLORPERAZINE 1 ML IV ONE (18:34)
[2023-12-14] MEDS ORDERED: diphenhydrAMINE 50 MG/ML VIAL IV STA (18:34)
[2023-12-14] MEDS ORDERED: dexAMETHasone**PF** 10 MG/ML VIAL IV ONE (18:34)
[2023-12-14] MEDS ORDERED: SODIUM CHLORIDE 0.65% NA SOLN 45 ML (OCEAN) ONE (18:36)
[2023-12-14] MEDS ORDERED: guaiFENesin 600 MG TABCR PO STA (18:36)
[2023-12-14] MEDS ORDERED: SODIUM CHLORIDE 0.9% 500 ML IV SCH (18:45)
--- NOTE | 2023-12-14 18:58 | History & Physical Report ---
Date of Service December 14, 2023 Assessment & Plan (1) Neutropenic fever: Plan: Neutropenic fever Neutropenic, ANC 0.18 Bio fire negative With hyperbilirubinemia without transaminitis. Lyme and anaplasmosis are pending. Chest x-ray negative Received empiric cefepime, blood cultures drawn. Improving dry cough, otherwise denies respiratory symptoms, no sputum production. No abdominal pain. Denies rash outside of Paxlovid skin reaction. Patient reports that he was given ceftriaxone in the past and had a immediate reaction with hives and throat swelling. Cefepime discontinued due to risk of cross reaction/anaphylaxis; continue meropenem for empiric coverage Has had an improving dry cough since COVID, but this is improving and not any worse. Endorses dysuria for a few days. UA is noninfected appearing Headache is without neurodeficits, no nuchal rigidity, normal CThead migraine. Low suspicion for meningitis (2) Nonischemic cardiomyopathy: Plan: Heart failure with reduced ejection fraction, history of atrial fibrillation s/p cardioversion Nonischemic, suspect rate related due to afib versus COVID EF 25% 12/2022, 08/05/2023 echo with EF 30-35%, grade 1 diastolic dysfunction moderate global hypokinesis. Patient is pending follow-up with [facility] [place] No acute heart failure decompensation at time of admission. Continue Continue Eliquis, Lasix as needed, metoprolol, Entresto, spironolactone Farxiga held temporarily for risk of UTI (3) Asthma: Plan: No wheezing on admission DuoNebs as needed Continue Advair Continue montelukast (4) Atrial fibrillation with rapid ventricular response: Plan: History of A-fib, sinus bradycardia on admission Anticoagulation continued (5) Dysuria: Plan: With recent mild dysuria and urgency. UA is not infected appearing. History of Present Illness Primary Care Provider: DO Wilder Nguyen is a 58yo M who presents with neutropenic fever. Patient is at the bedside with his present. He reports he has had a chronic headache for a few weeks, and noticed that he had a 3-4/10 headache since cardioversion on the . This did completely resolve last week however it recurred 1 day ago. He reports he does not have severe photosensitivity, but the lights in the room are bright. No photosensitivity. No vision change. No strength or neurodeficits. He has been trying to stretch his neck but this has not helped. He does not have nuchal rigidity and is able to bring his chin to his chest without worsening of his pain. Headache is mostly in the occiput and slightly behind the left eye. He reports for the last day has had chills, muscle aches, muscle pain, a fever of 100 F, and an increase in the headache to around 8/10 today. He has taken a few regular strength Tylenol yesterday and today which have not helped. He did have a bloody nose after using Afrin yesterday, this has resolved. He does get sinus congestion intermittently he does not feel like he has sinusitis at this time. He has had a dry cough which is gradually improving since he had COVID for the second time in October. He has recently developed some burning and soreness when he starts to void, and urinary hesitancy which is new. No flank pain. No abdominal pain. He reports when he had COVID in October he was treated with Paxlovid and had 3 lesions develop, 1 on his right cheek, 1 on left cheek, 1 on the forehead as a result of the Paxlovid. He saw dermatology for this and completed topical 5-fluorouracil treatment. These have not been changing and are not painful. Patient reports he did have a severe reaction to ceftriaxone in the past, 5 minutes after this was administered he had rapid onset of hives and throat swelling. No other medications were coadministered at that time so suspect this was a true severe allergy to the antibiotic. He is also allergic to amoxicillin/penicillin. He reports he had an adverse reaction to tetracycline as a kid which stained his teeth but he has tolerated doxycycline well for infections in the past. He does not use tobacco or alcohol. Full code Allergies Allergy/AdvReac Type Severity Reaction Status Date / Time ceftriaxone [From Rocephin] Allergy Severe Throat Verified 12/14/23 19:30 Swelling Tetracyclines Allergy Severe VOMITING Verified 12/14/23 19:30 AND RASH amoxicillin Allergy Unknown RX AN Verified 12/14/23 19:30 INFANT clavulanic acid Allergy Unknown RX AN Verified 12/14/23 19:30 erythromycin base Allergy Unknown REACTION Verified 12/14/23 19:30 TO PCN AND AUGMENTIN Penicillins Allergy Unknown REACTION Verified 12/14/23 19:30 AN - UNKNOWN banana AdvReac Intermediate Vomiting Verified 12/14/23 19:30 hydromorphone [From Dilaudid] AdvReac Intermediate Vomiting Verified 12/14/23 19:30 Home Medications Medication Instructions Recorded Confirmed Type ascorbate calcium (vitamin C) 500 500 mg PO QAM 08/17/19 12/14/23 History mg tablet cholecalciferol (vitamin D3) 10 400 units PO QAM 08/17/19 12/14/23 History mcg (400 unit) capsule cyclobenzaprine 10 mg tablet 10 mg PO HS #30 tabs 08/17/19 12/14/23 Rx montelukast 10 mg tablet 10 mg PO QAM 08/17/19 12/14/23 History diazepam 5 mg tablet 5 mg PO HS 09/03/22 12/14/23 History melatonin 5 mg capsule 5 mg PO HS 09/03/22 12/14/23 History calcium carb-Ca gluc 500 mg 3 tab PO QAM 01/05/23 12/14/23 History calcium-magnesium ox-Mg gluc 250 mg tablet (Calcium Magnesium) multivitamin 1 tab PO QAM 01/05/23 12/14/23 History apixaban 5 mg tablet (Eliquis) 5 mg PO BID #180 tabs 01/22/23 12/14/23 Rx famotidine 20 mg tablet (Pepcid) 20 mg PO BID PRN Heartburn 01/30/23 12/14/23 History furosemide 20 mg tablet (Lasix) 20 mg PO DAILY PRN Weight Gain 01/30/23 12/14/23 History fluticasone 500 mcg-salmeterol 50 1 inh inhalation BID 02/19/23 12/14/23 History mcg/dose blistr powdr for inhalation (Advair Diskus) sacubitril 97 mg-valsartan 103 mg 1 tab PO BID #180 tabs 03/10/23 12/14/23 Rx tablet (Entresto) fluticasone propionate 50 1 spray intranasal DAILY 10/27/23 12/14/23 History mcg/actuation nasal spray,suspension albuterol sulfate 90 mcg/actuation 2 puffs inhalation Q4H PRN 11/02/23 12/14/23 Rx breath activated powder inhaler Shortness Of Breath Or Wheezing or cough #1 ea oulbfcgtvw-[id number]-jkqgoyvi 1 cap PO Q6H PRN headache/migraine 11/02/23 12/14/23 Rx 50 mg-300 mg-40 mg capsule #7 caps (Fioricet) ondansetron 4 mg disintegrating 4 mg PO Q6H PRN nausea and 11/02/23 12/14/23 Rx tablet vomiting #14 tabs dapagliflozin propanediol 10 mg 10 mg PO QAM 11/25/23 12/14/23 History tablet (Farxiga) metoprolol succinate 50 mg 200 mg PO QAM 11/25/23 12/14/23 History tablet,extended release 24 hr spironolactone 25 mg tablet 25 mg PO DAILY #30 tabs 11/30/23 12/14/23 Rx Past Med/Surg History Medical History Nonischemic cardiomyopathy History of COVID-19 10/27/23 tested positive at [facility] through the emergency room. treated with paxlovid on 10/27/23. symptoms: flu symptoms. Migraine hx Atrial fibrillation s/p cardioversion 01/2023 [place]. on Eliquis. Follows with Dr. Rios. 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 CHF (congestive heart failure) Chronic dyspnea History of ventricular tachycardia Restless leg syndrome Hypertension Surgical History History of cardioversion (~01/2023) at [facility] Family history of reaction to anesthesia MOTHER AND DAUGHTER>N/V Nausea and vomiting after administration of anesthetic agent History of arthroscopy left knee Hx of vasectomy History of colonoscopy History of tooth extraction History of ear surgery ? 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 NAD. Cooperative. HEENT: Atraumatic, normocephalic. Skin plaque and keratosis on left cheek, right cheek, and forehead without erythema/warmth/tenderness. Vision intact without deficit. Pupils equal and reactive to light. No nuchal rigidity Pulm: CTAB A&P. -wheezes, -rales, -rhonchi. Symmetrical chest rise. No increased work of breathing. No respiratory distress. Cardiac: RRR, -mrg. Radial pulses intact and symmetrical. Abdominal: Nontender, nondistended, soft. BS present. Extremities: Warm, dry. No swelling. Sensation is soft touch intact in hands and feet without asymmetry. 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/pulmonary physician strength 5/5 Results & Data Results & Data Vital Signs (Past 12 Hours) Vital Signs Temp Pulse Pulse Resp BP BP Pulse Ox 12/14/23 18:30 54 L 13 115/71 98 12/14/23 18:04 51 L 12/14/23 18:00 53 L 13 119/79 95 12/14/23 17:50 57 L 20 120/78 97 12/14/23 14:15 36.3 C L 69 18 121/79 95 O2 Del Method 12/14/23 18:30 Room Air 12/14/23 18:04 12/14/23 18:00 Room Air 12/14/23 17:50 Room Air 12/14/23 14:15 Room Air PG Care Time/CCT Total # of Minutes Spent Total Time Spent with Patient: Total time spent is greater than 50% in coordination of care (as documented) at patient's floor/unit and/or counseling patient: Coding Level of Care Code 07473 INT INP/OBS CARE 3/75MIN Diagnoses Neutropenic fever D70.9; R50.81 Nonischemic cardiomyopathy I42.8 Asthma J45.909 Atrial fibrillation with rapid ventricular response I48.91 Dysuria R30.0
[2023-12-14] MEDS: CEFEPIME 2,000 MG/20 ML VIAL IV STA ×2 (19:13→19:56)
[2023-12-14 19:34] LABS: Appearance Urine Clear (Clear); Bilirubin Urine Negative (Negative); Blood Urine Negative (Negative); Color Urine Yellow; Glucose Urine UA 3+ (Negative); Ketones Urine Trace (Negative); Leukocyte Esterase Urine Negative (Negative); Nitrite Urine Negative (Negative); Protein Urine Negative (Negative); Specific Gravity Urine 1.026 (1.000-1.030); Urobilinogen Urine Negative (Negative); pH Urine 6.5 (4.5-7.5)
[2023-12-14] MEDS ORDERED: BUTALBITAL/ACETAMIN/CAFFEINE TAB PO PRN (19:46)
[2023-12-14 20:11] LABS: Procalcitonin < 0.05 ng/ml (0-0.5)
[2023-12-14 20:17] LABS: Lyme Ab IgG w/WB Rflx Negative (Negative)
[2023-12-14 20:18] LABS: Lyme Ab IgM w/WB Rflx Negative (Negative)
[2023-12-14] MEDS ORDERED: MEROPENEM 500 MG in SYRINGE 0 ML IV STA (20:25)
[2023-12-14] MEDS ORDERED: ACETAMINOPHEN 325 MG TAB PO PRN (21:41)
[2023-12-14] MEDS ORDERED: POLYETHYLENE (MIRALAX) 17 GM PACK PO PRN (21:41)
[2023-12-14] MEDS ORDERED: FAMOTIDINE 20 MG TAB PO PRN (21:41)
[2023-12-14] MEDS ORDERED: diazePAM 5 MG TABLET PO PRN (21:41)
[2023-12-14] MEDS ORDERED: ONDANSETRON 4 MG OD TAB PO PRN (21:41)
[2023-12-14] MEDS: APIXABAN 5 MG TABLET PO SCH (22:48)
[2023-12-14] MEDS: MELATONIN 3 MG TAB PO SCH (22:48)
[2023-12-14] MEDS: CYCLOBENZAPRINE HCL 10 MG TAB PO SCH (22:48)
[2023-12-14] MEDS: VALSARTAN/SACUBITRIL 103/97MG TAB PO SCH (23:02)
[2023-12-14] MEDS: FLUTICASONE/VILANTEROL 200/25MCG 14 PUFFS/INHALER INH SCH (23:02)
[2023-12-15] MEDS: MEROPENEM 500 MG in SYRINGE 0 ML IV SCH ×4 (01:36→20:29)
[2023-12-15 07:08] LABS: Hematocrit (blood only) 49.8 % (42.0-52.0); Hemoglobin 16.4 g/dl (14.0-18.0); Mean Corpuscular Hemoglobin 27.8 pg (25.0-34.0); Mean Corpuscular Hgb Conc 32.9 g/dL (32.0-36.0); Mean Corpuscular Volume 84.4 fL (80.0-100.0); Mean Platelet Volume 10.1 fL (9.4-12.4); Platelet Count 218 K/uL (130-400); RDW Coefficient of Variation 13.4 % (11.5-14.5); RDW Standard Deviation 41.7 fL (36.4-46.3); White Blood Count 1.47 K/ul (4.8-10.8)
--- NOTE | 2023-12-15 07:10 | Hospitalist Progress Note ---
Date of Service December 15, 2023 Assessment & Plan (1) Neutropenic fever: (2) Nonischemic cardiomyopathy: (3) Asthma: (4) Atrial fibrillation with rapid ventricular response: (5) Dysuria: Plan Neutropenic fever Neutropenic, ANC 0.18 Bio fire negative With hyperbilirubinemia without transaminitis. Lyme and anaplasmosis are pending. Chest x-ray negative Received empiric cefepime, blood cultures drawn. Improving dry cough, otherwise denies respiratory symptoms, no sputum production. No abdominal pain. Denies rash outside of Paxlovid skin reaction. Patient reports that he was given ceftriaxone in the past and had a immediate reaction with hives and throat swelling. Cefepime discontinued due to risk of cross reaction/anaphylaxis; continue meropenem for empiric coverage Has had an improving dry cough since COVID, but this is improving and not any worse. Endorses dysuria for a few days. UA negative Headache is without neurodeficits, no nuchal rigidity, normal CThead migraine. Low suspicion for meningitis. -Will consult hematology d/t neutropenic fever w/o a known source. Nonischemic cardiomyopathy Heart failure with reduced ejection fraction, history of atrial fibrillation s/p cardioversion Nonischemic, suspect rate related due to afib versus COVID EF 25% 12/2022, 08/05/2023 echo with EF 30-35%, grade 1 diastolic dysfunction moderate global hypokinesis. Patient is pending follow[place] with [facility] [place] acute heart failure decompensation at time of admission. Continue Continue Eliquis, Lasix as needed, metoprolol, Entresto, spironolactone Farxiga held temporarily for risk of UTI Asthma No wheezing on admission DuoNebs as needed Continue Advair Continue montelukast Atrial fibrillation with rapid ventricular response History of A-fib, sinus bradycardia on admission Anticoagulation continued Dysuria With recent mild dysuria and urgency. UA is not infected appearing. Admission and Anticipated Discharge Date Admission Date: December 14, 2023 Supervising Physician Co-Signing Physician Notes Attending attestation Pt seen and examined in concert with Dr. Costa. In agreement with the documented findings as noted in the resident documentation with any exceptions or additions as noted here. Feeling overall better w/ less fatigue and malaise compared to time of admission. On examination, S1/S2 nl RRR no MCG. CTAB. Abd NT/ND BS+ve WBC: 1.47 ANC: 0.48 BIOFIRE Neg Neutropenic fever - continue meropenem and follow Cx. Hematology consultation for initial etiology of neutropenia without apparent cause. Else see resident documentation as noted. Subjective Patient was seen beside this AM. States that he is feeling a little bit better. Still has a minor cough and sweating at night. INIGUEZ 4/10 today which is improved. Review of Systems Review of Systems: All systems reviewed & are unremarkable except as noted in Subjective Physical Exam Physical Exam: General: A&Ox3. NAD. Cooperative. HEENT: Atraumatic, normocephalic. Skin plaque and keratosis on right cheek and forehead without erythema/warmth/tenderness. No nuchal rigidity Pulm: CTAB A&P. -wheezes, -rales, -rhonchi. Symmetrical chest rise. No increased work of breathing. No respiratory distress. Cardiac: RRR, -mrg. Radial pulses intact and symmetrical. Abdominal: Nontender, nondistended, soft. BS present. Extremities: Warm, dry. No swelling. Sensation is soft touch intact in hands and feet without asymmetry. 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/plate stacker hand strength 5/5 Results & Data Results & Data Vital Signs (Past 12 Hours) Vital Signs Temp Pulse Pulse Resp BP BP Pulse Ox 12/14/23 22:00 36.8 C 53 L 16 116/67 97 12/14/23 21:35 36.8 C 53 L 16 116/67 97 12/14/23 21:00 62 18 108/78 92 12/14/23 20:30 62 20 96/76 L 94 12/14/23 20:00 53 L 18 113/71 93 12/14/23 19:30 55 L 18 125/70 99 O2 Del Method 12/14/23 22:00 Room Air 12/14/23 21:35 Room Air 12/14/23 21:00 Room Air 12/14/23 20:30 Room Air 12/14/23 20:00 Room Air 12/14/23 19:30 Room Air Resident Activity Tracking Resident Involvement: Resident Care Provided Care Provided: Adult Hospital Medicine
[2023-12-15 07:26] LABS: BUN Creatinine Ratio 20.9 (10-20); Creatinine Clr Calc Pharmacy 117.1 ml/min; Est GFR (African American) 108.8 ml/min; Est GFR (Non-African American) 93.9 ml/min
[2023-12-15 07:34] LABS: RBC Morphology Unremarkable
[2023-12-15 07:35] LABS: Basophils # (auto) 0.01 K/uL (0.00-0.20); Basophils % (auto) 0.7 %; Immature Granulocytes # (auto) 0.01 K/uL (0.01-0.20); Immature Granulocytes % (auto) 0.7 %; Lymphocytes # (auto) 0.64 K/uL (1.20-3.40); Lymphocytes % (auto) 43.5 %; Monocytes # (auto) 0.33 K/uL (0.11-0.59); Monocytes % (auto) 22.4 %; Neutrophils # (auto) 0.48 K/uL (1.40-6.50); Neutrophils % (auto) 32.7 %
[2023-12-15] MEDS: APIXABAN 5 MG TABLET PO SCH ×2 (08:22→20:29)
[2023-12-15] MEDS: FLUTICASONE PROPIONATE NA SPR 16 GM BTL NAE SCH (08:22)
[2023-12-15] MEDS: MONTELUKAST SODIUM 10 MG TABLET PO SCH (08:22)
[2023-12-15] MEDS: VALSARTAN/SACUBITRIL 103/97MG TAB PO SCH ×2 (08:22→20:29)
[2023-12-15] MEDS: SPIRONOLACTONE 25 MG TAB PO SCH (08:22)
[2023-12-15] MEDS: MULTIVITAMIN TAB PO SCH (08:22)
[2023-12-15] MEDS: METOPROLOL SUCC 50MG EXT REL TAB PO SCH (08:22)
[2023-12-15] MEDS: FLUTICASONE/VILANTEROL 200/25MCG 14 PUFFS/INHALER INH SCH (13:58)
--- NOTE | 2023-12-15 16:27 | Oncology Consultation ---
Date of Consultation December 15, 2023 Assessment & Plan (1) Neutropenic fever: At from the neutropenic fever aspect I would recommend continuing him on broad- spectrum antibiotics to prevent septic shock. As far as the workup for neutropenia is concerned the patient will benefit from a peripheral smear, basic hematological evaluation including testing for B12, folate. I will also anticipate that he undergoes a bone marrow biopsy if his neutropenia does not resolve. 1 hypothesis is that this is a postviral neutropenia, the other issue could be an inherited problem in the bone marrow which is causing to him to be neutropenic. Rule that out I will recommend a bone marrow biopsy. Given that he has severe neutropenia I would definitely want to rule out an underlying bone marrow pathology. Plan Thank you for this interesting hematological consult. Hematology will continue to follow the patient and make appropriate recommendations. Chief recommendation after today's visit was to consider performing a bone marrow biopsy especially if the neutropenia is persistent. His ANC on admission was 180, increased to 480 on 12/15/2023. Continue checking absolute neutrophil count going forward. 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 He comes to [facility] after he had been complaining of chronic headache which had been going on for a few days since he underwent cardioversion. The patient has not started any new medications. He had COVID in October and was treated with Paxlovid. Subsequently he received topical 5-FU treatment. While in the hospital the patient was noted to be severely neutropenic with an absolute neutrophil count less than 500/mcL. He also had some chills, muscle ache and muscle pain due to fever of 100 Fahrenheit. Hematology has been consulted to assist in management of this patient with neutropenic fever which is not related to chemotherapy. He has undergone a viral serology which has been negative Allergies Allergy/AdvReac Type Severity Reaction Status Date / Time ceftriaxone [From Rocephin] Allergy Severe Throat Verified 12/14/23 19:30 Swelling Tetracyclines Allergy Severe VOMITING Verified 12/14/23 19:30 AND RASH amoxicillin Allergy Unknown RX AN Verified 12/14/23 19:30 INFANT clavulanic acid Allergy Unknown RX AN Verified 12/14/23 19:30 INFANT erythromycin base Allergy Unknown REACTION Verified 12/14/23 19:30 TO PCN AND AUGMENTIN Penicillins Allergy Unknown REACTION Verified 12/14/23 19:30 AN INFANT - UNKNOWN banana AdvReac Intermediate Vomiting Verified 12/14/23 19:30 hydromorphone [From Dilaudid] AdvReac Intermediate Vomiting Verified 12/14/23 19:30 Home Medications Medication Instructions Recorded Confirmed Type ascorbate calcium (vitamin C) 500 500 mg PO QAM 08/17/19 12/14/23 History mg tablet cholecalciferol (vitamin D3) 10 400 units PO QAM 08/17/19 12/14/23 History mcg (400 unit) capsule cyclobenzaprine 10 mg tablet 10 mg PO HS #30 tabs 08/17/19 12/14/23 Rx montelukast 10 mg tablet 10 mg PO QAM 08/17/19 12/14/23 History diazepam 5 mg tablet 5 mg PO HS 09/03/22 12/14/23 History melatonin 5 mg capsule 5 mg PO HS 09/03/22 12/14/23 History calcium carb-Ca gluc 500 mg 3 tab PO QAM 01/05/23 12/14/23 History calcium-magnesium ox-Mg gluc 250 mg tablet (Calcium Magnesium) multivitamin 1 tab PO QAM 01/05/23 12/14/23 History apixaban 5 mg tablet (Eliquis) 5 mg PO BID #180 tabs 01/22/23 12/14/23 Rx famotidine 20 mg tablet (Pepcid) 20 mg PO BID PRN Heartburn 01/30/23 12/14/23 History furosemide 20 mg tablet (Lasix) 20 mg PO DAILY PRN Weight Gain 01/30/23 12/14/23 History fluticasone 500 mcg-salmeterol 50 1 inh inhalation BID 02/19/23 12/14/23 History mcg/dose blistr powdr for inhalation (Advair Diskus) sacubitril 97 mg-valsartan 103 mg 1 tab PO BID #180 tabs 03/10/23 12/14/23 Rx tablet (Entresto) fluticasone propionate 50 1 spray intranasal DAILY 10/27/23 12/14/23 History mcg/actuation nasal spray,suspension albuterol sulfate 90 mcg/actuation 2 puffs inhalation Q4H PRN 11/02/23 12/14/23 Rx breath activated powder inhaler Shortness Of Breath Or Wheezing or cough #1 ea psdgveaqmw-eqlkshwkcdrjs-ggknjhqy 1 cap PO Q6H PRN headache/migraine 11/02/23 12/14/23 Rx 50 mg-300 mg-40 mg capsule #7 caps (Fioricet) ondansetron 4 mg disintegrating 4 mg PO Q6H PRN nausea and 11/02/23 12/14/23 Rx tablet vomiting #14 tabs dapagliflozin propanediol 10 mg 10 mg PO QAM 11/25/23 12/14/23 History tablet (Farxiga) metoprolol succinate 50 mg 200 mg PO QAM 11/25/23 12/14/23 History tablet,extended release 24 hr spironolactone 25 mg tablet 25 mg PO DAILY #30 tabs 11/30/23 12/14/23 Rx Patient History Medical History Nonischemic cardiomyopathy History of COVID-19 10/27/23 tested positive at [facility] through the emergency room. treated with paxlovid on 10/27/23. symptoms: flu symptoms. Migraine hx Atrial fibrillation s/p cardioversion 01/2023 [place]. on Eliquis. Follows with Dr. Rios. 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 CHF (congestive heart failure) Chronic dyspnea History of ventricular tachycardia Restless leg syndrome Hypertension Surgical History History of cardioversion (~01/2023) at [facility] Family history of reaction to anesthesia MOTHER AND DAUGHTER>N/V Nausea and vomiting after administration of anesthetic agent History of arthroscopy left knee Hx of vasectomy History of colonoscopy History of tooth extraction History of ear surgery ? 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
[2023-12-15] MEDS: MELATONIN 3 MG TAB PO SCH (20:29)
[2023-12-15] MEDS: CYCLOBENZAPRINE HCL 10 MG TAB PO SCH (20:29)
[2023-12-16] MEDS: MEROPENEM 500 MG in SYRINGE 0 ML IV SCH ×4 (01:34→20:54)
--- NOTE | 2023-12-16 07:07 | Hospitalist Progress Note ---
Date of Service December 16, 2023 Assessment & Plan (1) Neutropenic fever: (2) Nonischemic cardiomyopathy: (3) Asthma: (4) Atrial fibrillation with rapid ventricular response: (5) Dysuria: Plan Neutropenic fever Neutropenic, ANC 0.18 Bio fire negative With hyperbilirubinemia without transaminitis. Lyme and anaplasmosis are pending. Chest x-ray negative Received empiric cefepime, blood cultures drawn. Improving dry cough, otherwise denies respiratory symptoms, no sputum production. No abdominal pain. Denies rash outside of Paxlovid skin reaction. Patient reports that he was given ceftriaxone in the past and had a immediate reaction with hives and throat swelling. Cefepime discontinued due to risk of cross reaction/anaphylaxis; continue meropenem for empiric coverage Has had an improving dry cough since COVID, but this is improving and not any worse. Endorses dysuria for a few days. UA negative Headache is without neurodeficits, no nuchal rigidity, normal CThead migraine. Low suspicion for meningitis. -Will consult hematology d/t neutropenic fever w/o a known source. -Recommend continuing on broad-spectrum antibiotics -May be a result of a postviral neutropenia though unsure and would recommend at least a follow-up with hematology outpatient to discuss bone marrow biopsy. -Folate and vitamin B12 normal. Peripheral smear negative. -Neutrophil continues to raise and was 1.1 on 12/16 Nonischemic cardiomyopathy Heart failure with reduced ejection fraction, history of atrial fibrillation s/p cardioversion Nonischemic, suspect rate related due to afib versus COVID EF 25% 12/2022, 08/05/2023 echo with EF 30-35%, grade 1 diastolic dysfunction moderate global hypokinesis. Patient is pending follow[place] with [facility] [place] No acute heart failure decompensation at time of admission. Continue Continue Eliquis, Lasix as needed, metoprolol, Entresto, spironolactone Farxiga held temporarily for risk of UTI Asthma No wheezing on admission DuoNebs as needed Continue Advair Continue montelukast Atrial fibrillation with rapid ventricular response History of A-fib, sinus bradycardia on admission Anticoagulation continued Dysuria With recent mild dysuria and urgency. UA is not infected appearing. Admission and Anticipated Discharge Date Admission Date: December 14, 2023 Supervising Physician Co-Signing Physician Notes Attending attestation Pt seen and examined in concert with Dr. Costa. In agreement with the documented findings as noted in the resident documentation with any exceptions or additions as noted here. Ongoing improvement in malaise/fatigue. Spouse at bedside. On examination, S1/S2 nl RRR no MCG. CTAB. Abd NT/ND BS+ve WBC: 3.46 Neutrophils: 1.11 B12: 360 Folate: 18.39 Neutropenic fever - hematology consult - continue meropenem, cultures 48 hrs at 1700 today. May warrant bone marrow bx by hematology with any worsening but likely for outpatient f/u with ongoing improvement. Else see resident documentation as noted. Subjective Patient seen bedside this morning. States that he feels okay but was having trouble with sleeping last night. Not in any current pain at this time. Denies any shortness of breath, chest pain, nausea, or vomiting. Review of Systems Review of Systems: All systems reviewed & are unremarkable except as noted in Subjective Physical Exam Physical Exam: General: A&Ox3. NAD. Cooperative. HEENT: Atraumatic, normocephalic. Skin plaque and keratosis on right cheek and forehead without erythema/warmth/tenderness. No nuchal rigidity Pulm: CTAB A&P. -wheezes, -rales, -rhonchi. Symmetrical chest rise. No increased work of breathing. No respiratory distress. Cardiac: RRR, -mrg. Radial pulses intact and symmetrical. Abdominal: Nontender, nondistended, soft. BS present. Extremities: Warm, dry. No swelling. Sensation is soft touch intact in hands and feet without asymmetry. 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
[2023-12-16 07:41] LABS: Basophils # (auto) 0.02 K/uL (0.00-0.20); Basophils % (auto) 0.6 %; Eosinophils # (auto) 0.03 K/uL (0.00-0.50); Eosinophils % (auto) 0.9 %; Hematocrit (blood only) 48.4 % (42.0-52.0); Hemoglobin 15.9 g/dl (14.0-18.0); Immature Granulocytes # (auto) 0.06 K/uL (0.01-0.20); Immature Granulocytes % (auto) 1.7 %; Lymphocytes # (auto) 1.37 K/uL (1.20-3.40); Lymphocytes % (auto) 39.6 %; Mean Corpuscular Hemoglobin 27.7 pg (25.0-34.0); Mean Corpuscular Hgb Conc 32.9 g/dL (32.0-36.0); Mean Corpuscular Volume 84.3 fL (80.0-100.0); Mean Platelet Volume 9.9 fL (9.4-12.4); Monocytes # (auto) 0.87 K/uL (0.11-0.59); Monocytes % (auto) 25.1 %; Neutrophils # (auto) 1.11 K/uL (1.40-6.50); Neutrophils % (auto) 32.1 %; Platelet Count 226 K/uL (130-400); RDW Coefficient of Variation 13.9 % (11.5-14.5); RDW Standard Deviation 42.6 fL (36.4-46.3); Red Blood Count 5.74 M/uL (4.70-6.10); White Blood Count 3.46 K/ul (4.8-10.8)
[2023-12-16 07:53] LABS: Calcium 9.5 mg/dl (8.6-10.3); Potassium 3.9 mmol/L (3.5-5.1)
[2023-12-16 07:58] LABS: Creatinine Clr Calc Pharmacy 106.6 ml/min; Est GFR (African American) 97.1 ml/min; Est GFR (Non-African American) 83.8 ml/min
[2023-12-16 08:37] LABS: Folate (Folic Acid),Ser orPlas 18.39 ng/ml (>5.38)
[2023-12-16] MEDS: APIXABAN 5 MG TABLET PO SCH ×2 (08:59→20:51)
[2023-12-16] MEDS: MULTIVITAMIN TAB PO SCH (08:59)
[2023-12-16] MEDS: SPIRONOLACTONE 25 MG TAB PO SCH (08:59)
[2023-12-16] MEDS: FLUTICASONE/VILANTEROL 200/25MCG 14 PUFFS/INHALER INH SCH (09:00)
[2023-12-16] MEDS: VALSARTAN/SACUBITRIL 103/97MG TAB PO SCH ×2 (09:00→20:51)
[2023-12-16] MEDS: METOPROLOL SUCC 50MG EXT REL TAB PO SCH (09:00)
[2023-12-16] MEDS: MONTELUKAST SODIUM 10 MG TABLET PO SCH (09:00)
[2023-12-16] MEDS: FLUTICASONE PROPIONATE NA SPR 16 GM BTL NAE SCH (09:01)
--- NOTE | 2023-12-16 19:06 | Hematology/Oncology Prog Note ---
Date of Service December 16, 2023 Assessment & Plan (1) Neutropenic fever: Plan: His neutropenia seems to be improving without any intervention. At this point I am on the fence about a bone marrow biopsy. If he continues to notice improvement in his blood counts, then a bone marrow biopsy will not be needed. This may very well be a sequelae of a viral infection. Will recommend continued CBC evaluation. Plan Hematology will continue to follow and make appropriate recommendations. I relayed my recommendations to the primary team. Explained the rationale behind being on the fence of bone marrow biopsy at this point Admission and Anticipated Discharge Date Admission Date: December 14, 2023 Subjective The patient feels much better today. He does not feel tired or fatigued. No active bleeding or bruising. No more fevers. Results & Data Vital Signs (Past 12 Hours) Vital Signs Temp Pulse Resp BP Pulse Ox O2 Del Method 12/16/23 15:28 36.3 C L 53 L 16 117/70 94 Room Air
[2023-12-16] MEDS: CYCLOBENZAPRINE HCL 10 MG TAB PO SCH (20:51)
[2023-12-16] MEDS: MELATONIN 3 MG TAB PO SCH (20:51)
[2023-12-16] MEDS ORDERED: diazePAM 5 MG TABLET PO SCH (21:00)
--- NOTE | 2023-12-17 07:48 | Discharge Summary ---
Date of Service December 17, 2023 Admission HPI Per Admitting Provider Wilder is a 58yo M who presents with neutropenic fever. Patient is at the bedside with his present. He reports he has had a chronic headache for a few weeks, and noticed that he had a 3-4/10 headache since cardioversion on the . This did completely resolve last week however it recurred 1 day ago. He reports he does not have severe photosensitivity, but the lights in the room are bright. No photosensitivity. No vision change. No strength or neurodeficits. He has been trying to stretch his neck but this has not helped. He does not have nuchal rigidity and is able to bring his chin to his chest without worsening of his pain. Headache is mostly in the occiput and slightly behind the left eye. He reports for the last day has had chills, muscle aches, muscle pain, a fever of 100 F, and an increase in the headache to around 8/10 today. He has taken a few regular strength Tylenol yesterday and today which have not helped. He did have a bloody nose after using Afrin yesterday, this has resolved. He does get sinus congestion intermittently he does not feel like he has sinusitis at this time. He has had a dry cough which is gradually improving since he had COVID for the second time in October. He has recently developed some burning and soreness when he starts to void, and urinary hesitancy which is new. No flank pain. No abdominal pain. He reports when he had COVID in October he was treated with Paxlovid and had 3 lesions develop, 1 on his right cheek, 1 on left cheek, 1 on the forehead as a result of the Paxlovid. He saw dermatology for this and completed topical 5-fluorouracil treatment. These have not been changing and are not painful. Patient reports he did have a severe reaction to ceftriaxone in the past, 5 minutes after this was administered he had rapid onset of hives and throat swelling. No other medications were coadministered at that time so suspect this was a true severe allergy to the antibiotic. He is also allergic to amoxicillin/penicillin. He reports he had an adverse reaction to tetracycline as a kid which stained his teeth but he has tolerated doxycycline well for infections in the past. He does not use tobacco or alcohol. Full code Admission Exam Per Admitting Provider General: A&Ox3. NAD. Cooperative. HEENT: Atraumatic, normocephalic. Skin plaque and keratosis on left cheek, right cheek, and forehead without erythema/warmth/tenderness. Vision intact without deficit. Pupils equal and reactive to light. No nuchal rigidity Pulm: CTAB A&P. -wheezes, -rales, -rhonchi. Symmetrical chest rise. No increased work of breathing. No respiratory distress. Cardiac: RRR, -mrg. Radial pulses intact and symmetrical. Abdominal: Nontender, nondistended, soft. BS present. Extremities: Warm, dry. No swelling. Sensation is soft touch intact in hands and feet without asymmetry. 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 5/5 Principal Diagnosis Neutropenic fever Discharge Exam Constitutional: well-appearing, no acute distress HEENT: NCAT, no conjunctival injection CV: regular rhythm, no murmur appreciated, extremities well-perfused, no LE edema Resp: CTABL, no wheezes/rales/rhonchi appreciated, no increased work of breathing GI: soft, nondistended, nontender, BS normoactive MSK: no gross deformities appreciated Skin: warm, dry, no rash appreciated Neuro: alert, oriented, no focal neurologic deficit appreciated Discharge Data Allergies Allergy/AdvReac Type Severity Reaction Status Date / Time ceftriaxone [From Rocephin] Allergy Severe Throat Verified 12/14/23 19:30 Swelling Tetracyclines Allergy Severe VOMITING Verified 12/14/23 19:30 AND RASH amoxicillin Allergy Unknown RX AN Verified 12/14/23 19:30 INFANT clavulanic acid Allergy Unknown RX AN Verified 12/14/23 19:30 INFANT erythromycin base Allergy Unknown REACTION Verified 12/14/23 19:30 TO PCN AND AUGMENTIN Penicillins Allergy Unknown REACTION Verified 12/14/23 19:30 AN - UNKNOWN banana AdvReac Intermediate Vomiting Verified 12/14/23 19:30 hydromorphone [From Dilaudid] AdvReac Intermediate Vomiting Verified 12/14/23 19:30 Consultations 12/14/23 18:36 ED Decision to Admit Stat 12/15/23 09:29 Consult Hematology Routine Ordered Studies Chest X-Ray 12/14/23 14:22 XR chest 1V not portable HISTORY: 58 years-old Male fever, cough acute cough with fever COMPARISON: 11/13/2023 TECHNIQUE: PA view of the chest FINDINGS: Cardiomediastinal and hilar silhouettes are within normal limits. No pneumothorax, pleural effusion or airspace consolidation. The bones of the chest appear grossly intact. IMPRESSION: No acute process. ACT 112: Negative or not required by law. The above report was generated using voice recognition software. It may contain grammatical, syntax or spelling errors. Electronically signed by: Maynor Lopez M.D. 12/14/2023 4:[address] 12/14/23 14:22 CT OF THE HEAD WITHOUT CONTRAST CLINICAL HISTORY: Severe headache. COMPARISON STUDY: Head CT October 27, 2023. MRI of the brain October 30, 2023. CT DOSE: 625.8 mGy.cm TECHNIQUE: Helical axial images of the head were obtained without IV contrast. Automated exposure control was utilized for the study. A dose lowering technique was utilized adhering to the principles of ALARA. FINDINGS: No acute intracranial hemorrhage, midline shift or mass effect is present. The ventricular system is unremarkable. Fullness at the level of the foramen magnum remains unchanged from earlier exams. No extra-axial collections are present. There are no findings to suggest acute dural sinus thrombosis or acute territorial infarct. There are no calvarial fractures. There is mild ethmoid sinus mucosal thickening. IMPRESSION: No acute intracranial findings. No change in appearance of the brain. ACT 112: Negative or not required by law. Electronically signed by: Vasile Parikh M.D. 12/14/2023 3:48 PM 12/14/23 14:22 CT head/brain wo con Stat Hospital Course (1) Neutropenic fever: (2) Nonischemic cardiomyopathy: (3) Asthma: (4) Atrial fibrillation with rapid ventricular response: (5) Dysuria: Plan Neutropenic fever Neutropenic, ANC 0.18 at admission. Bio fire negative With hyperbilirubinemia without transaminitis. Lyme and anaplasmosis negative. Chest x-ray negative Received empiric cefepime, blood cultures drawn. Improving dry cough, otherwise denies respiratory symptoms, no sputum production. No abdominal pain. Denies rash outside of Paxlovid skin reaction. Blood cultures negative. Patient reports that he was given ceftriaxone in the past and had a immediate reaction with hives and throat swelling. Cefepime discontinued due to risk of cross reaction/anaphylaxis; continue meropenem for empiric coverage Has had an improving dry cough since COVID, but this is improving and not any worse. Endorses dysuria for a few days. UA negative Headache is without neurodeficits, no nuchal rigidity, normal CThead migraine. Low suspicion for meningitis. -Will consult hematology d/t neutropenic fever w/o known source. -Continue to broad-spectrum antibiotics while admitted to the hospital. -May be a result of a postviral neutropenia though unsure and will have a follow-up with hematology outpatient to discuss bone marrow biopsy. -Folate and vitamin B12 normal. Peripheral smear negative. -Neutrophil continues to raise and was 1.1 on 12/16 and then 1.2 on 12/17. Broad- spectrum antibiotics were stopped due to neutrophil count over 1.0 and no signs of infection. -CBC with differential in 1 week ordered. -Follow-up with PCP within 1 week and hematology. Nonischemic cardiomyopathy Heart failure with reduced ejection fraction, history of atrial fibrillation s/p cardioversion Nonischemic, suspect rate related due to afib versus COVID EF 25% 12/2022, 08/05/2023 echo with EF 30-35%, grade 1 diastolic dysfunction moderate global hypokinesis. Patient is pending follow-up with [facility] [place] No acute heart failure decompensation at time of admission. Continue Continue Eliquis, Lasix as needed, metoprolol, Entresto, spironolactone Farxiga held temporarily for risk of UTI, restarted at discharge. Asthma No wheezing on admission DuoNebs as needed Continue Advair Continue montelukast Atrial fibrillation with rapid ventricular response History of A-fib, sinus bradycardia on admission Anticoagulation continued Dysuria With recent mild dysuria and urgency. UA is not infected appearing. Total Time Total Time Spent Total Time Spent (In Minutes): Please refer to attendings attestation. Discharge Plan Discharge Items Patient Disposition: Home - Self-Care Reason For Visit: NEUTROPENIC FEVER Discharge Diagnosis: Neutropenic Fever Activity: Resume your previous activity Non-emergency contact: Primary Care Provider Call non-emergency contact if: you have any medication questions, your pain is unusual for you and your temperature is above 101.5 Follow-up/Referrals: Jonny Baker MD [Physician] - ([facility] PER [facility] WILL CONTACT THE PATIENT WITH A HOSPITAL FOLLOW UP VISIT.) Brianna Cornell DO [Primary Care Provider] - 12/22/23 10:25 am Diet: Regular Ambulatory Orders: Complete Blood Count with Diff (Routine) Timeframe: 1 Week Location: Determined by Patient Ordered By: Reji Marie Attending Provider Instructions: You were admitted to the hospital for neutropenic fever. You were treated with supportive care and antibiotics and got better. A discharge summary will be sent to your primary care physician to ensure continuity of care. Please bring this discharge summary with you to your next office appointment so that your provider can review it at that time. Follow-up appointments: * Make a follow-up appointment with your PCP within the next week. It is very important that you follow up with them shortly after discharge from the hospital. * Make a follow-up appointment with Dr. Baker (hematology/oncology) within the next 2 weeks. You will discuss the need for a bone marrow biopsy. * Keep all your follow-up appointments as already scheduled. If you cannot make an appointment, notify your provider. Medications: Your medication list has been reviewed and reconciled upon discharge to ensure accuracy and continuity of care. An updated list of all your medications is included with your hospital discharge paperwork. Please review this list closely, and make note of any changes. * No changes to your medications were made during this admission. * You should have a CBC with differential in one week after discharge and this will be discussed with your PCP. * If you have any issues filling these prescriptions, please call [phone] and ask to leave a message for Dr. Costa. * Take your medications as instructed; do not skip a dose of your medicines. Make sure all of your doctors know every medicine you are taking (including etfx-pxs-mipkcmt medicines, vitamins, and supplements). Call your primary care provider before taking any new medicines (including over- the-counter medicines, vitamins, and supplements), because some of these may interact with your current medications, or may make your symptoms worse. Tell your primary care provider if you cannot afford your medications. CONTACT YOUR PRIMARY CARE PROVIDER if you experience any of the following: * Worsening of symptoms * Fever, chills, or fatigue * Difficulty following your treatment plan, or difficulty taking medications CALL 911 OR GO TO THE EMERGENCY DEPARTMENT if you experience any of the following: * Sudden, severe abdominal pain or nausea/vomiting * Severe chest pain, or chest pain that radiates (moves) to your jaw or arm * Sudden, severe shortness of breath or difficulty breathing Thank you for allowing us to participate in your care. Pending Studies at Discharge: No Stand-Alone Forms: [facility], Smoking Cessation Medications and DC Order Prescriptions: Continued cyclobenzaprine 10 mg tablet 10 mg PO HS Qty: 30 0RF montelukast 10 mg tablet 10 mg PO QAM ascorbate calcium (vitamin C) 500 mg tablet 500 mg PO QAM cholecalciferol (vitamin D3) 400 unit capsule 400 units PO QAM Eliquis 5 mg tablet 5 mg PO BID Qty: 180 3RF Hold Instructions: Resume on 11/05/23. spironolactone 25 mg tablet 25 mg PO DAILY Qty: 30 2RF Rx Instructions: started after cardioversion. diazepam 5 mg tablet 5 mg PO HS melatonin 5 mg capsule 5 mg PO HS Entresto 97-103 mg tablet 1 tab PO BID Qty: 180 3RF fluticasone propion-salmeterol [Advair Diskus] 500-50 mcg/dose blister with device 1 inh inhalation BID Calcium Magnesium 500 mg calcium -250 mg Tablet 3 tab PO QAM multivitamin Tablet 1 tab PO QAM famotidine [Pepcid] 20 mg Tablet 20 mg PO BID PRN (Reason: Heartburn) furosemide [Lasix] 20 mg tablet 20 mg PO DAILY PRN (Reason: Weight Gain) fluticasone propionate 50 mcg/actuation spray,suspension 1 spray INTRANASAL DAILY ondansetron 4 mg tablet,disintegrating 4 mg PO Q6H PRN (Reason: nausea and vomiting) Qty: 14 0RF albuterol sulfate 90 mcg/actuation aerosol powdr breath activated 2 puffs INH Q4H PRN (Reason: Shortness Of Breath Or Wheezing or cough) Qty: 1 0RF Patient Comments: 1 inh INH as needed; Rx Instructions: use with spacer device [id number] [Fioricet] 50-300-40 mg capsule 1 cap PO Q6H PRN (Reason: headache/migraine) Qty: 7 0RF metoprolol succinate 50 mg tablet extended release 24 hr 200 mg PO QAM Farxiga 10 mg tablet 10 mg PO QAM Discharge Orders: Discharge Order (Routine); Ordered 12/17/23 Ordered By: Reji Mac/Other Patient Handouts: Neutropenia Admission Data Admit Date/Time: 12/14/23 19:46 Attending Provider: Gopi Yeh Admit Provider: Pranay Jacobs Primary Care Provider: Brianna Cornell Other Providers: Pranay Jacobs; Reji Bell; Clarisa Trinidad; Mayda Noonan; Jonny Baker; Jasmyne Dowling; Saray Maier; Sudhakar Leone; Darrin Jimenez; Ashley Cordero; NicoleP,No Attending Other Interventions: Discharge Summary Assessment (RN) Last Done: 12/17/23 13:26 Supervising Physician Co-Signing Physician Notes Attending attestation Pt seen and examined in concert with Dr. Costa. In agreement with the documented findings as noted in the resident documentation with any exceptions or additions as noted here. Ongoing improvement in malaise/fatigue, approaching baseline On examination, S1/S2 nl RRR no MCG. CTAB. Abd NT/ND BS+ve WBC: 4.32 Neutrophils: 1.2 B12: 360 Folate: 18.39 Neutropenic fever - hematology consult - d/c abx at discharge w/ negative cultures and improved neutropenia. To follow up with hematology with repeat CBC and ?bone marrow bx in the outpatient setting. Else see resident documentation as noted. Total attending physician time spent with this patient's care on the day of discharge: 38 minutes. Resident Activity Tracking Resident Involvement: Resident Care Provided Care Provided: Adult Hospital Medicine
[2023-12-17 08:21] LABS: Basophils # (auto) 0.05 K/uL (0.00-0.20); Basophils % (auto) 1.2 %; Eosinophils # (auto) 0.14 K/uL (0.00-0.50); Eosinophils % (auto) 3.2 %; Hematocrit (blood only) 47.6 % (42.0-52.0); Hemoglobin 15.9 g/dl (14.0-18.0); Immature Granulocytes # (auto) 0.15 K/uL (0.01-0.20); Immature Granulocytes % (auto) 3.5 %; Lymphocytes # (auto) 1.93 K/uL (1.20-3.40); Lymphocytes % (auto) 44.7 %; Mean Corpuscular Hemoglobin 27.7 pg (25.0-34.0); Mean Corpuscular Hgb Conc 33.4 g/dL (32.0-36.0); Mean Corpuscular Volume 82.9 fL (80.0-100.0); Mean Platelet Volume 9.7 fL (9.4-12.4); Monocytes # (auto) 0.85 K/uL (0.11-0.59); Monocytes % (auto) 19.7 %; Neutrophils % (auto) 27.7 %; Platelet Count 228 K/uL (130-400); RDW Coefficient of Variation 13.9 % (11.5-14.5); RDW Standard Deviation 41.9 fL (36.4-46.3); Red Blood Count 5.74 M/uL (4.70-6.10); White Blood Count 4.32 K/ul (4.8-10.8)
[2023-12-17] MEDS: VALSARTAN/SACUBITRIL 103/97MG TAB PO SCH (08:23)
[2023-12-17] MEDS: SPIRONOLACTONE 25 MG TAB PO SCH (08:24)
[2023-12-17] MEDS: MULTIVITAMIN TAB PO SCH (08:24)
[2023-12-17] MEDS: APIXABAN 5 MG TABLET PO SCH (08:24)
[2023-12-17] MEDS: METOPROLOL SUCC 50MG EXT REL TAB PO SCH (08:25)
[2023-12-17] MEDS: MONTELUKAST SODIUM 10 MG TABLET PO SCH (08:25)
[2023-12-17] MEDS: FLUTICASONE PROPIONATE NA SPR 16 GM BTL NAE SCH (08:26)
[2023-12-17] MEDS: FLUTICASONE/VILANTEROL 200/25MCG 14 PUFFS/INHALER INH SCH (08:26)
[2023-12-17 08:49] LABS: Calcium 9.1 mg/dl (8.6-10.3); Creatinine Clr Calc Pharmacy 122.5 ml/min; Est GFR (African American) 111.8 ml/min; Est GFR (Non-African American) 96.5 ml/min; Potassium 3.8 mmol/L (3.5-5.1)
== END 2023-12-17 14:03 | disposition home or self-care (01) | DRG 809 ==
LOC: ED 14:14 → 3N 19:46 → SUATTDRO 19:46 → 3N 21:27
DX: D70.9 Neutropenia, unspecified; I48.91 Unspecified atrial fibrillation; Z88.0 Allergy status to penicillin; Z88.1 Allergy status to other antibiotic agents; R30.0 Dysuria; Z88.5 Allergy status to narcotic agent; J45.909 Unspecified asthma, uncomplicated; R50.81 Fever presenting with conditions classified elsewhere; Z79.899 Other long term (current) drug therapy; I50.22 Chronic systolic (congestive) heart failure; Z86.16 Personal history of COVID-19; Z91.018 Allergy to other foods; I42.8 Other cardiomyopathies

== ENCOUNTER 2025-10-02 09:39 | Inpatient (IN) ==
--- NOTE | 2025-10-02 10:11 | XRay Report ---
XR chest 1V portable CLINICAL HISTORY: Dyspnea COMPARISON STUDY: 12/14/2023 FINDINGS: The heart is enlarged. There is slight prominence of the azygos, but no evidence for overt failure. There is no focal pulmonary consolidation. There are no pleural effusions. There is no pneum othorax.. IMPRESSION: 1. Mild cardiomegaly. 2. No evidence of focal pulmonary consolidation. No evidence of overt failure. ACT 112: Negative or not required by law. Electronically signed by: Sean Tapia M.D. 10/02/2025 10:09 AM
--- NOTE | 2025-10-02 10:15 | Emergency Department Note ---
ED Provider Note History of Present Illness Chief Complaint: Illness Time Seen by Provider: 10/02/25 09:52 Source: patient Mode of arrival: ambulatory Limitations: no limitations Patient is a 59-year-old male who presents to the emergency department with complaints of generalized bodyaches, cough, congestion, palpitations intermittently, intermittent chest discomfort and general unwell feeling. Patient states that he took a COVID test at home today which was negative and also reports that he has a history of CHF and is unsure if that is related to his symptoms today. Home Medications Medication Instructions Recorded Confirmed Type ascorbate calcium (vitamin C) 500 500 mg PO QAM 08/17/19 10/02/25 History mg tablet cholecalciferol (vitamin D3) 10 400 units PO QAM 08/17/19 10/02/25 History mcg (400 unit) capsule montelukast 10 mg tablet 10 mg PO QAM 08/17/19 10/02/25 History melatonin 5 mg capsule 5 mg PO HS 09/03/22 10/02/25 History calcium 500 mg 3 tab PO QAM 01/05/23 10/02/25 History (carb,gluconate)-magnesium 250 mg (gluc,oxide) tablet (Calcium Magnesium) multivitamin 1 tab PO QAM 01/05/23 10/02/25 History famotidine 20 mg tablet (Pepcid) 20 mg PO BID PRN Heartburn 01/30/23 10/02/25 History furosemide 20 mg tablet (Lasix) 20 mg PO DAILY PRN Weight Gain 01/30/23 10/02/25 History fluticasone 500 mcg-salmeterol 50 0 inh inhalation BID 02/19/23 10/02/25 History mcg/dose blistr powdr for inhalation (Advair Diskus) fluticasone propionate 50 0 spray intranasal DAILY 10/27/23 10/02/25 History mcg/actuation nasal spray,suspension albuterol sulfate 90 mcg/actuation 2 puffs inhalation Q4H PRN 11/02/23 10/02/25 Rx breath activated powder inhaler Shortness Of Breath Or Wheezing or cough #1 ea metoprolol succinate 200 mg 200 mg PO QAM #90 tabs 11/24/24 10/02/25 Rx tablet,extended release 24 hr apixaban 5 mg tablet (Eliquis) 5 mg PO BID #180 tabs 04/27/25 10/02/25 Rx dapagliflozin propanediol 10 mg 10 mg PO QAM #90 tabs 04/27/25 10/02/25 Rx tablet (Farxiga) sacubitril 97 mg-valsartan 103 mg 1 tab PO BID #180 tabs 04/27/25 10/02/25 Rx tablet (Entresto) spironolactone 25 mg tablet 25 mg PO DAILY #90 tabs 05/19/25 10/02/25 Rx escitalopram oxalate 20 mg tablet 20 mg PO DAILY 06/06/25 10/02/25 History (Lexapro) ropinirole 2 mg tablet 2 mg PO DAILY 06/06/25 10/02/25 History mrkoicfvsi-spmzrbssrvkim-cabetmli 0 cap PO Q6H PRN headache/migraine 10/02/25 10/02/25 History 50 mg-300 mg-40 mg capsule (Fioricet) ondansetron 4 mg disintegrating 0 mg PO Q6H PRN nausea and vomiting 10/02/25 10/02/25 History tablet Allergies Allergy/AdvReac Type Severity Reaction Status Date / Time ceftriaxone [From Rocephin] Allergy Severe Throat Verified 06/06/25 11:54 Swelling Tetracyclines Allergy Severe VOMITING Verified 06/06/25 11:54 AND RASH amoxicillin Allergy Unknown RX AN Verified 06/06/25 11:54 clavulanic acid Allergy Unknown RX AN Verified 06/06/25 11:54 erythromycin base Allergy Unknown REACTION Verified 06/06/25 11:54 TO PCN AND AUGMENTIN Penicillins Allergy Unknown REACTION Verified 06/06/25 11:54 AN - UNKNOWN banana AdvReac Intermediate Vomiting Verified 06/06/25 11:54 hydromorphone [From Dilaudid] AdvReac Intermediate Vomiting Verified 06/06/25 11:54 Past Med/Surg History Problem List (Updated 10/02/25 @ 17:53 by Long Reese MD) Rhinovirus Mononucleosis (Acute) Elevated troponin (Acute) Migraine (Acute) Cough with congestion of paranasal sinus (Acute) Neutropenic fever (Acute) Dysuria Neutropenic fever Nonischemic cardiomyopathy (Acute) Acute bacterial rhinosinusitis Cerebellar tonsillar ectopia Vertigo COVID-19 (Acute) COVID-19 Dyspnea (Acute) Chest pain (Acute) Colon cancer screening Frequent unifocal PVCs Encounter for pre-operative examination Zurita's palsy Right-sided headache (Acute) Chest pain (Acute) Facial droop (Acute) Weakness on right side of face Anticoagulant long-term use Congestive heart failure (Acute) Atrial fibrillation (Acute) 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 Chest tightness Edema Chest pain Subacute cough History of COVID-19 (Acute) No significant past surgical history Asthma Dizziness Insomnia Hypokalemia HBP (high blood pressure) AIVR (accelerated idioventricular rhythm) Dehydration (Acute) Concussion (Acute) Cardiomyopathy HFrEF (heart failure with reduced ejection fraction) Chronic dyspnea History of ventricular tachycardia Hypertension Medical History Atrial fibrillation with rapid ventricular response History of COVID-19 10/27/23 tested positive at [facility] through the emergency room. treated with paxlovid on 10/27/23. symptoms: flu symptoms. Migraine hx Atrial fibrillation s/p cardioversion 01/2023 [place]. on Eliquis. Follows with Dr. Rios. 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 CHF (congestive heart failure) Restless leg syndrome Surgical History History of cardioversion (~01/2023) at [facility] Family history of reaction to anesthesia MOTHER AND DAUGHTER>N/V Nausea and vomiting after administration of anesthetic agent History of arthroscopy left knee Hx of vasectomy History of colonoscopy History of tooth extraction History of ear surgery ? details Family History Daughter PONV (postoperative nausea and vomiting) Mother PONV (postoperative nausea and vomiting) Social History Smoking Status: Never smoker Tobacco Type: Cigars Second Hand Exposure: No; Do You Dip or Chew Tobacco: No; Hx Alcohol Use: No Hx Substance Use: No Preferred Language: Syriac Communication Ability: Effective Job Setter Required: No Beliefs That Will Affect Care: None Current Living Situation: Spouse current occupation: [employer] Other Information That Helps Us Care for You: No Feels Safe at Home: Yes Safety Concerns: Feels Safe At This Time Assistive Devices: None Physical Exam Vital Signs Vital Signs - 24 hr 10/02/25 09:46 10/02/25 10:10 10/02/25 10:12 Temperature 36.6 C Temperature Source Temporal Artery Scan Pulse Rate 102 H Pulse Rate [Apical] 101 H Respiratory Rate 18 20 Respiratory Effort / Characteristics Non-Labored Non-Labored Spontaneous Respiratory Depth Normal Normal Respiratory Pattern Regular Blood Pressure 133/87 Blood Pressure [Left Arm] 135/94 Blood Pressure Mean 102 Blood Pressure Mean [Left Arm] 107 Blood Pressure Position [Left Arm] Pulse Oximetry 96 95 93 Oxygen Delivery Method Room Air Room Air Room Air Sepsis Recent Fever Within 48 Hours No Sepsis New/Unexplained Change in Mental Status No Sepsis Action Taken by Nursing No Action Required 10/02/25 10:23 10/02/25 11:32 Temperature Temperature Source Pulse Rate 103 H Pulse Rate [Apical] 115 H Respiratory Rate 17 Respiratory Effort / Characteristics Non-Labored Spontaneous Respiratory Depth Normal Respiratory Pattern Blood Pressure Blood Pressure [Left Arm] 132/77 Blood Pressure Mean Blood Pressure Mean [Left Arm] 95 Blood Pressure Position [Left Arm] Semi-fowlers Pulse Oximetry 94 Oxygen Delivery Method Room Air Sepsis Recent Fever Within 48 Hours Sepsis New/Unexplained Change in Mental Status Sepsis Action Taken by Nursing VITAL SIGNS - Vital signs and nursing notes were reviewed. GENERAL -59-year-old male appearing their stated age, who is in no acute distress. Communicates well with provider and answers questions appropriately. HEAD - Normocephalic, Atraumatic. No Daigle's Sign or Raccoon's Eyes. EYES - PERRL with EOMI bilaterally. Sclera anicteric. Conjunctiva pink and moist with no injection. EARS - No deformities of external structures noted on gross examination bilaterally. NOSE - Midline and without cyanosis. No epistaxis or purulent drainage noted. MOUTH/OROPHARYNX - Without perioral cyanosis. Buccal mucosa pink and moist and without leukoplakia. NECK - Neck with FROM. Supple to palpation. No lymphadenopathy noted. LUNGS - Chest wall symmetric without accessory muscle use, intercostals retractions, or central cyanosis. Normal vesicular breath sounds CTA B/L. No wheezes, rales, or rhonchi appreciated. CARDIAC - RRR with S1/S2. No murmur, rubs, or gallops appreciated. EXTREMITIES - No edema present. +5/5 strength noted in UE/LE bilaterally. PSYCH - A&Ox3 and cooperates fully with examiner. Pt is very pleasant and interacts well with examiner Course Administered Medications Acetaminophen (Acetaminophen 325 Mg Tab) 650 mg PO Q4H PRN PRN Reason: Pain or Fever Stop: 11/01/25 15:22 Last Admin: 10/02/25 15:50 Dose: 650 mg Documented By: YARELIS Fluticasone/Vilanterol (Fluticasone/Vilanterol 200/25mcg 14 Puffs/Inhaler) 1 puffs INH DAILY DONNIE Stop: 11/01/25 15:44 Last Admin: 10/02/25 16:52 Dose: Not Given Documented By: kimberlyn Guaifenesin/Dextromethorphan (Guaifenesin/Dextrom Syrup 100mg/10mg 5ml Udc) 5 ml PO Q6H PRN PRN Reason: Cough Stop: 11/01/25 15:22 Last Admin: 10/02/25 17:48 Dose: 5 ml Documented By: kimberlyn Menthol (Cough Drop (Sugar Free) Ashley 24 Ashley/1 Box) 1 ashley BUCCAL Q2H PRN PRN Reason: Sore Throat Stop: 11/01/25 12:17 Last Admin: 10/02/25 16:44 Dose: 1 ashley Documented By: kimberlyn Discontinued Medications Acetaminophen (Acetaminophen 325 Mg Tab) Confirm Administered Dose 650 mg .ROUTE .STK-MED ONE Stop: 10/02/25 13:41 Last Admin: 10/02/25 13:43 Dose: 650 mg Documented By: FIONA Medical Decision Making Differential Diagnosis RSV, influenza, COVID, mono, strep throat, pneumonia, adenovirus, congestive heart failure, among others Medical Records Attestation: I reviewed the patient's medical records. Home Medications was personally reviewed by me Laboratory Data Attestation: I reviewed the patient's lab results. 10/02/25 10:10 10/02/25 10:10 Lab Results 10/02/25 10/02/25 10/02/25 Range/Units 10:10 11:00 11:53 WBC 11.53 H (4.8-10.8) K/ul RBC 5.63 (4.70-6.10) M/uL Hgb 16.4 (14.0-18.0) g/dl Hct 49.4 (42.0-52.0) % MCV 87.7 (80.0-100.0) fL MCH 29.1 (25.0-34.0) pg MCHC 33.2 (32.0-36.0) g/dL RDW Std Deviation 41.5 (36.4-46.3) fL RDW Coeff of Nam 12.9 (11.5-14.5) % Plt Count 197 (130-400) K/uL MPV 9.8 (9.4-12.4) fL Immature Gran % (Auto) 0.4 % Neut % (Auto) 81.0 % Lymph % (Auto) 9.2 % Weber % (Auto) 7.8 % Eos % (Auto) 1.4 % Baso % (Auto) 0.2 % Neut # (Auto) 9.34 H (1.40-6.50) K/uL Lymph # (Auto) 1.06 L (1.20-3.40) K/uL Weber # (Auto) 0.90 H (0.11-0.59) K/uL Eos # (Auto) 0.16 (0.00-0.50) K/uL Baso # (Auto) 0.02 (0.00-0.20) K/uL Immature Gran # (Auto) 0.05 (0.01-0.20) K/uL Sodium 137 (136-145) mmol/L Potassium 4.6 (3.5-5.1) mmol/L Chloride 103 (98-107) mmol/L Carbon Dioxide 28 (21-32) mmol/L Anion Gap 6 (3-11) BUN 20 (6-23) mg/dl Creatinine 1.11 (0.6-1.4) mg/dl Est Cr Clr Drug Dosing 101.8 ml/min eGFR 77.45 BUN/Creatinine Ratio 18.0 (10-20) Glucose 92 (70-99(Fasting)) mg/dl Calcium 9.4 (8.6-10.3) mg/dl Total Bilirubin 0.7 (0.2-1.0) mg/dl AST 22 (13-39) U/L ALT 19 (7-52) U/L Alkaline Phosphatase 45 (34-104) U/L Troponin I High Sens 40.6 H 8.8 D (0-20) pg/ml B-Natriuretic Peptide 365 H (0-100) pg/ml Total Protein 7.1 (6.0-8.3) gm/dl Albumin 4.2 (3.4-5.0) gm/dl Globulin 2.9 (2.5-4.0) gm/dl Albumin/Globulin Ratio 1.4 (0.9-2) Urine Color Yellow Urine Appearance Clear (Clear) Urine pH 8.0 H (4.5-7.5) Ur Specific [place] 1.017 (1.000-1.030) Urine Protein Negative (Negative) Urine Glucose (UA) 2+ H (Negative) Urine Ketones Negative (Negative) Urine Blood Negative (Negative) Urine Nitrite Negative (Negative) Urine Bilirubin Negative (Negative) Urine Urobilinogen Negative (Negative) Ur Leukocyte Esterase Negative (Negative) Urine Comment EBV Capsid Ag IgG Ab Positive EBV Caps Ag IgG Sig Str > 750.0 (< 18.0) U/mL EBV Capsid Ag IgM Ab Negative EBV Caps Ag IgM Sig Str < 10.0 (< 36.0) U/mL EBV Nuclear Antigen Ab Negative EBV Nucl Ag IgG Sig Str < 3.0 (< 18.0) U/mL EBV Interpretation See Comment Monoscreen Positive A (Negative) Imaging Data Radiologist's Impression: Chest X-Ray 10/02/25 09:52 XR chest 1V portable CLINICAL HISTORY: Dyspnea COMPARISON STUDY: 12/14/2023 FINDINGS: The heart is enlarged. There is slight prominence of the azygos, but no evidence for overt failure. There is no focal pulmonary consolidation. There are no pleural effusions. There is no pneumothorax.. IMPRESSION: 1. Mild cardiomegaly. 2. No evidence of focal pulmonary consolidation. No evidence of overt failure. ACT 112: Negative or not required by law. Electronically signed by: Sean Tapia M.D. 10/02/2025 10:09 AM [facility] Narrative Patient is a 59-year-old male who presents to the emergency department with complaints of generalized bodyaches, cough, congestion, palpitations intermittently, intermittent chest discomfort and general unwell feeling. Patient states that he took a COVID test at home today which was negative and also reports that he has a history of CHF and is unsure if that is related to his symptoms today. Patient was evaluated by myself and findings were noted in the physical exam above. Patient was ordered IV placement, lab work, EKG, cardiac monitoring, urinalysis, and an x-ray of the chest. Patient was also ordered an upper respiratory viral panel as well as a strep swab and Monospot. Patient's EKG was completed and interpreted by myself to show the patient and an A-fib rhythm. The patient does have a history of A-fib, is rate controlled and takes Eliquis daily. Patient's lab work resulted with a mildly elevated white blood cell count of 11.53. Patient had no indication of anemia with a hemoglobin of 16.4 and hematocrit of 49.4. Patient had no significant electrolyte imbalance noted. Patient did have an elevated troponin of 40.6 as well as BNP of 365. Patient was positive for mono and negative for strep throat. Patient's upper respiratory viral panel also resulted positive for enterovirus/rhinovirus. I discussed all these findings with the patient and the patient verbalized understanding. I discussed with the patient that despite he tested positive for rhinovirus and mono which are both viral processes, he does appear to be having a mild CHF exacerbation and has an elevated troponin level which would warrant hospitalization for further evaluation and management. Patient verbalized understanding and was agreeable to the plan for admission to the hospital for further management. I reached out and spoke with the [facility] hospitalist group and spoke with Dr. Ahuja. He gave him a full report and the patient's chief complaint, current status and the results of his imaging and lab work. He was agreeable to admit the patient under the [facility] group service for admission. Please refer to the [facility] hospitalist group's documentation for further evaluation and management of this patient. Impression Congestive heart failure, Atrial fibrillation, Elevated troponin, Mononucleosis Discharge Plan Visit Data Chief Complaint: Illness ED Provider: Eh Osuna ED Midlevel Provider: Ruth Poole Discharge Problem: Congestive heart failure, Atrial fibrillation, Elevated troponin, Mononucleosis Patient Disposition: Admitted As Inpatient Condition: Fair Discharge Instructions Interventions: ED Discharge Assessment Last Done: 10/02/25 15:24 ED DC CONDITION Conditon at Discharge Condition at Discharge: Fair Discharge Problem: Congestive heart failure Qualifiers: Heart failure type: unspecified Heart failure chronicity: acute on chronic Q ualified Code(s): I50.9 - Heart failure, unspecified Atrial fibrillation Qualifiers: Atrial fibrillation type: unspecified Qualified Code(s): I48.91 - Unspecified atrial fibrillation Mononucleosis Qualifiers: Infectious mononucleosis etiology: unspecified organism Infectious mononucleosis complication: without complication Qualified Code(s): B27.90 - Infectious mononucleosis, unspecified without complication
[2025-10-02 10:22] LABS: Hematocrit (blood only) 49.4 % (42.0-52.0); Hemoglobin 16.4 g/dl (14.0-18.0); Immature Granulocytes # (auto) 0.05 K/uL (0.01-0.20); Immature Granulocytes % (auto) 0.4 %; Mean Corpuscular Hemoglobin 29.1 pg (25.0-34.0); Mean Corpuscular Volume 87.7 fL (80.0-100.0); Platelet Count 197 K/uL (130-400); RDW Standard Deviation 41.5 fL (36.4-46.3); Red Blood Count 5.63 M/uL (4.70-6.10); White Blood Count 11.53 K/ul (4.8-10.8)
[2025-10-02 10:46] LABS: Albumin Level 4.2 gm/dl (3.4-5.0); Anion Gap 6.0 (3-11); Bilirubin,Total 0.7 mg/dl (0.2-1.0); Calcium 9.4 mg/dl (8.6-10.3); Carbon Dioxide 28.0 mmol/L (21-32); Chloride 103.0 mmol/L (98-107); Potassium 4.6 mmol/L (3.5-5.1); Sodium 137.0 mmol/L (136-145)
[2025-10-02 10:52] LABS: Alanine Aminotransferase 19.0 U/L (7-52); Albumin Globulin Ratio 1.4 (0.9-2); Alkaline Phosphatase 45.0 U/L (34-104); Blood Urea Nitrogen 20.0 mg/dl (6-23); Creatinine Clr Calc Pharmacy 101.8 ml/min; Globulin 2.9 gm/dl (2.5-4.0); Glucose 92.0 mg/dl (70-99(Fasting)); Total Protein 7.1 gm/dl (6.0-8.3)
[2025-10-02 11:21] LABS: Chlamydia pneumoniae PCR Not Detected (NotDetected); Coronavirus 229E PCR Not Detected (NotDetected); Coronavirus CoV-2 (COVID19)PCR Not Detected (NotDetected); Coronavirus HKU1 PCR Not Detected (NotDetected); Coronavirus NL63 PCR Not Detected (NotDetected); Coronavirus OC43PCR Not Detected (NotDetected); Human Metapneumovirus PCR Not Detected (NotDetected); Parainfluenza Virus 1 PCR Not Detected (NotDetected); Parainfluenza Virus 2 PCR Not Detected (NotDetected); Parainfluenza Virus 3 PCR Not Detected (NotDetected); Parainfluenza Virus 4 PCR Not Detected (NotDetected); Respiratory Syncytial VirusPCR Not Detected (NotDetected); Rhinovirus/Enterovirus PCR DETECTED (NotDetected)
[2025-10-02 11:53] LABS: Appearance Urine Clear (Clear); Glucose Urine UA 2+ (Negative)
--- NOTE | 2025-10-02 12:19 | History & Physical Report ---
Date of Service October 02, 2025 Assessment & Plan (1) Elevated troponin: (2) Nonischemic cardiomyopathy: (3) Rhinovirus: Plan 59 y/o male with PMH idiopathy Cardiomyopathy, Afib, CHF, HTN, GERD, asthma that presented to the ED due to general malaise, sore throat, palpitations and chest discomfort. Symptoms started last night. States having sporadic cough as well. Denied any SOB now now but does states feeling more SOB in the last couple of days. He'd been traveling recently due to work, he admitted not following low sodium diet. 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 Denied any chest pain on evaluation. Denied any abdominal pain, nausea or vomiting. Denied any orthopnea. Patient found positive for rhino virus and positive mono test. Due to SOB and general maise will admit for further monitoring Rhinovirus + - SOB , general malaise, sore throat - Lab unremarkable, WBC elevated 11.53, Normal renal function - Biofire positive for rhino virus and positive mono test - EBV panel negative for an acute infection - CXR: Mild cardiomegaly. No focal consolidations. No pulmonary edema or effusion - Symptomatic treatment: Tylenol, cough syrup - Labs in am Mild CHF - Increased SOB, palpitations and chest discomfort since yesterday night - Last echocardiogram on 2023, will repeat today - BNP 365 - Euvolemic on exam - Continue spironolactone, Entresto and Farxiga - Daily weight, and I/Os - Continue to monitor Paroxysmal Afib - Continue rate control - Continue Eliquis Elevated troponin - Arrival 40.6 repeat 8 - EKK afib, no ST elevation or depression - Echocardiogram ordered Dispo: Flo Young - DVT prophylaxis: Eliquis Admission and Anticipated Discharge Date Admission Date: ATTESTATION I also saw the patient and confirmed khalil portions of the history and exam. I agree with the impression and plan in the resident documentation, and as summarized below. patient reports about a 24-hour history of body aches, cough, congestion, palpitations and sore throat. he took a home COVID test which was negative. Given his past medical history of paroxysmal atrial fibrillation and congestive heart failure, he presented to the emergency department for evaluation. Workup in the emergency department demonstrated positive BioFire for rhinovirus. Also had a positive Monospot, but discussed this could be (unlikely) a false positive. With his history of atrial fibrillation and borderline rate control, and with concern for mild CHF exacerbation, he was referred for admission. EXAM 121/76, 94, 20, 36.7, 94% on room air He is alert and oriented. No distress appreciated. He speaks in full complete sentences without pause. Heart irregularly irregular - on the bedside monitor, he does have short runs of what looks to be sinus, mixed with longer periods of atrial fibrillation Lungs with nonlabored respirations; clear DATA Labs white blood cell count 11.53, hemoglobin 16.4 BMP is unremarkable with BUN 20, creatinine 1.11 AST 22, ALT 19, alkaline phosphatase 45 BNP 365 Imaging chest x-ray completed upon admission shows mild cardiomegaly but no evidence of focal pulmonary consolidation or pulmonary congestion. EKG demonstrates atrial fibrillation ventricular rate of 96 Micro BioFire is positive for rhinovirus IMPRESSION & PLAN Rhinovirus infection Cardiomyopathy with low normal systolic function Paroxysmal atrial fibrillation, on systemic anticoagulation, rate controlled Hypertension, controlled Elevated troponin Upon my exam, he appears euvolemic. Check echocardiogram Trend troponin Continue home medications Additional per resident documentation History of Present Illness Primary Care Provider: Chad Escalante Georgina 59 y/o male with PMH idiopathy Cardiomyopathy, Afib, CHF, HTN, GERD, asthma that presented to the ED due to general malaise, sore throat, palpitations and chest discomfort. Symptoms started last night. States having sporadic cough as well. Denied any SOB now now but does states feeling more SOB in the last couple of days. He'd been traveling recently due to work, he admitted not following low sodium diet. 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 Denied any chest pain on evaluation. Denied any abdominal pain, nausea or vomiting. Denied any orthopnea. Patient found positive for rhino virus and positive mono test. Allergies Allergy/AdvReac Type Severity Reaction Status Date / Time ceftriaxone [From Rocephin] Allergy Severe Throat Verified 06/06/25 11:54 Swelling Tetracyclines Allergy Severe VOMITING Verified 06/06/25 11:54 AND RASH amoxicillin Allergy Unknown RX AN Verified 06/06/25 11:54 INFANT clavulanic acid Allergy Unknown RX AN Verified 06/06/25 11:54 erythromycin base Allergy Unknown REACTION Verified 06/06/25 11:54 TO PCN AND AUGMENTIN Penicillins Allergy Unknown REACTION Verified 06/06/25 11:54 AN INFANT - UNKNOWN banana AdvReac Intermediate Vomiting Verified 06/06/25 11:54 hydromorphone [From Dilaudid] AdvReac Intermediate Vomiting Verified 06/06/25 11:54 Home Medications Medication Instructions Recorded Confirmed Type ascorbate calcium (vitamin C) 500 500 mg PO QAM 08/17/19 10/02/25 History mg tablet cholecalciferol (vitamin D3) 10 400 units PO QAM 08/17/19 10/02/25 History mcg (400 unit) capsule montelukast 10 mg tablet 10 mg PO QAM 08/17/19 10/02/25 History melatonin 5 mg capsule 5 mg PO HS 09/03/22 10/02/25 History calcium 500 mg 3 tab PO QAM 01/05/23 10/02/25 History (carb,gluconate)-magnesium 250 mg (gluc,oxide) tablet (Calcium Magnesium) multivitamin 1 tab PO QAM 01/05/23 10/02/25 History famotidine 20 mg tablet (Pepcid) 20 mg PO BID PRN Heartburn 01/30/23 10/02/25 History furosemide 20 mg tablet (Lasix) 20 mg PO DAILY PRN Weight Gain 01/30/23 10/02/25 History fluticasone 500 mcg-salmeterol 50 0 inh inhalation BID 02/19/23 10/02/25 History mcg/dose blistr powdr for inhalation (Advair Diskus) fluticasone propionate 50 0 spray intranasal DAILY 10/27/23 10/02/25 History mcg/actuation nasal spray,suspension albuterol sulfate 90 mcg/actuation 2 puffs inhalation Q4H PRN 11/02/23 10/02/25 Rx breath activated powder inhaler Shortness Of Breath Or Wheezing or cough #1 ea metoprolol succinate 200 mg 200 mg PO QAM #90 tabs 11/24/24 10/02/25 Rx tablet,extended release 24 hr apixaban 5 mg tablet (Eliquis) 5 mg PO BID #180 tabs 04/27/25 10/02/25 Rx dapagliflozin propanediol 10 mg 10 mg PO QAM #90 tabs 04/27/25 10/02/25 Rx tablet (Farxiga) sacubitril 97 mg-valsartan 103 mg 1 tab PO BID #180 tabs 04/27/25 10/02/25 Rx tablet (Entresto) spironolactone 25 mg tablet 25 mg PO DAILY #90 tabs 05/19/25 10/02/25 Rx escitalopram oxalate 20 mg tablet 20 mg PO DAILY 06/06/25 10/02/25 History (Lexapro) ropinirole 2 mg tablet 2 mg PO DAILY 06/06/25 10/02/25 History itcvfyqqnh-tzstqxtwrorbf-acatznsq 0 cap PO Q6H PRN headache/migraine 10/02/25 10/02/25 History 50 mg-300 mg-40 mg capsule (Fioricet) ondansetron 4 mg disintegrating 0 mg PO Q6H PRN nausea and vomiting 10/02/25 10/02/25 History tablet Past Med/Surg History Problem List (Updated 10/02/25 @ 17:53 by Long Reese MD) Rhinovirus Mononucleosis (Acute) Elevated troponin (Acute) Migraine (Acute) Cough with congestion of paranasal sinus (Acute) Neutropenic fever (Acute) Dysuria Neutropenic fever Nonischemic cardiomyopathy (Acute) Acute bacterial rhinosinusitis Cerebellar tonsillar ectopia Vertigo COVID-19 (Acute) COVID-19 Dyspnea (Acute) Chest pain (Acute) Colon cancer screening Frequent unifocal PVCs Encounter for pre-operative examination Zurita's palsy Right-sided headache (Acute) Chest pain (Acute) Facial droop (Acute) Weakness on right side of face Anticoagulant long-term use Congestive heart failure (Acute) Atrial fibrillation (Acute) 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 Chest tightness Edema Chest pain Subacute cough History of COVID-19 (Acute) No significant past surgical history Asthma Dizziness Insomnia Hypokalemia HBP (high blood pressure) AIVR (accelerated idioventricular rhythm) Dehydration (Acute) Concussion (Acute) Cardiomyopathy HFrEF (heart failure with reduced ejection fraction) Chronic dyspnea History of ventricular tachycardia Hypertension Medical History Atrial fibrillation with rapid ventricular response History of COVID-19 10/27/23 tested positive at [facility] through the emergency room. treated with paxlovid on 10/27/23. symptoms: flu symptoms. Migraine hx Atrial fibrillation s/p cardioversion 01/2023 [place]. on Eliquis. Follows with Dr. Rios. 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 CHF (congestive heart failure) Restless leg syndrome Surgical History History of cardioversion (~01/2023) at [facility] Family history of reaction to anesthesia MOTHER AND DAUGHTER>N/V Nausea and vomiting after administration of anesthetic agent History of arthroscopy left knee Hx of vasectomy History of colonoscopy History of tooth extraction History of ear surgery ? details Family History Daughter PONV (postoperative nausea and vomiting) Mother PONV (postoperative nausea and vomiting) Social History Smoking Status: Never smoker Tobacco Type: Cigars Second Hand Exposure: No; Do You Dip or Chew Tobacco: No; Hx Alcohol Use: No Hx Substance Use: No Preferred Language: [place] Communication Ability: Effective Network Pricing Consultant Required: No Beliefs That Will Affect Care: None Current Living Situation: Spouse current occupation: [employer] Other Information That Helps Us Care for You: No Feels Safe at Home: Yes Safety Concerns: Feels Safe At This Time Assistive Devices: None Review of Systems Review of Systems: as per hpi Physical Exam Constitutional: well developed and well nourished; no acute distress Respiratory: normal respiratory effort, lungs clear to auscultation Auscultation: no crackles and no wheezes Cardiovascular: Rate/Rhythm: + irregularly irregular Gastrointestinal (Abdomen): normal bowel sounds, soft, nontender, no hepatosplenomegaly Skin: no rashes, warm and dry Psychiatric: A+Ox3, euthymic affect Results & Data Results & Data Vital Signs (Past 12 Hours) Vital Signs Temp Pulse Pulse Resp BP BP Pulse Ox 10/02/25 11:32 115 H 17 132/77 94 10/02/25 10:23 103 H 10/02/25 10:12 101 H 20 135/94 93 10/02/25 10:10 95 10/02/25 09:46 36.6 C 102 H 18 133/87 96 O2 Del Method 10/02/25 11:32 Room Air 10/02/25 10:23 10/02/25 10:12 Room Air 10/02/25 10:10 Room Air 10/02/25 09:46 Room Air Code Status & VTE Plan VTE Prophylaxis Plan VTE Prophylaxis will be ordered: Yes Resident Activity Tracking Resident Involvement: Resident Care Provided Care Provided: Adult Hospital Medicine
[2025-10-02 13:06] LABS: EBV Nuclear Antigen IgG Ab Negative; EBV Nuclear Antigen IgG Quant < 3.0 U/mL (< 18.0)
[2025-10-02 13:07] LABS: EBV IgG Antibody Positive; EBV IgG Quant > 750.0 U/mL (< 18.0); EBV IgM Antibody Negative; EBV IgM Quant < 10.0 U/mL (< 36.0)
[2025-10-02] MEDS: ACETAMINOPHEN 325 MG TAB ONE (13:43)
[2025-10-02] MEDS ORDERED: FLUTICASONE PROPIONATE NA SPR 16 GM BTL NAE PRN (15:23)
[2025-10-02] MEDS ORDERED: FAMOTIDINE 20 MG TAB PO PRN (15:23)
[2025-10-02] MEDS ORDERED: ALBUTEROL HFA 8 GM INHALER INH PRN (15:28)
[2025-10-02] MEDS: ACETAMINOPHEN 325 MG TAB PO PRN (15:50)
[2025-10-02] MEDS ORDERED: INFLUENZA VACC TS2025-26(6m+)/PF (IIV3) 0.5mL Syr IM ONE (16:39)
[2025-10-02] MEDS: COUGH DROP (SUGAR FREE) LOZ 24 LOZ/1 BOX BUCCAL PRN (16:44)
[2025-10-02] MEDS: FLUTICASONE/VILANTEROL 200/25MCG 14 PUFFS/INHALER INH SCH (16:52)
[2025-10-02] MEDS: VALSARTAN/SACUBITRIL 103/97MG TAB PO SCH (20:07)
[2025-10-02] MEDS: MELATONIN 3 MG TAB PO SCH (20:07)
[2025-10-02] MEDS: APIXABAN 5 MG TABLET PO SCH (20:07)
[2025-10-02] MEDS: BUTALBITAL/ACETAMIN/CAFFEINE TAB PO PRN (20:27)
[2025-10-02] MEDS: ONDANSETRON INJ 2 MG/ML 2 ML VIAL IV PRN (21:12)
[2025-10-03] MEDS: PROCHLORPERAZINE 10 MG in SYRINGE 8 ML IV ONE (01:53)
[2025-10-03] MEDS: diphenhydrAMINE 50 MG/ML VIAL IV STA (01:54)
[2025-10-03] MEDS: ACETAMINOPHEN 1,000 MG/100 ML VIAL IV STA (01:54)
[2025-10-03] MEDS: METOPROLOL TARTRATE 1 MG/ML VIAL IV STA (02:38)
[2025-10-03 07:29] LABS: Hematocrit (blood only) 49.4 % (42.0-52.0); Hemoglobin 16.5 g/dl (14.0-18.0); Immature Granulocytes # (auto) 0.05 K/uL (0.01-0.20); Immature Granulocytes % (auto) 0.4 %; Mean Corpuscular Hemoglobin 29.0 pg (25.0-34.0); Mean Corpuscular Volume 87.0 fL (80.0-100.0); Platelet Count 187 K/uL (130-400); RDW Standard Deviation 41.4 fL (36.4-46.3); Red Blood Count 5.68 M/uL (4.70-6.10); White Blood Count 11.53 K/ul (4.8-10.8)
[2025-10-03 07:57] LABS: Anion Gap 6 (3-11); Blood Urea Nitrogen 17 mg/dl (6-23); Calcium 9.1 mg/dl (8.6-10.3); Carbon Dioxide 29 mmol/L (21-32); Chloride 104 mmol/L (98-107); Creatinine Clr Calc Pharmacy 99.8 ml/min; Glucose 93 mg/dl (70-99(Fasting)); Magnesium 2.2 mg/dl (1.7-2.4); Sodium 139 mmol/L (136-145)
[2025-10-03] MEDS: MONTELUKAST SODIUM 10 MG TABLET PO SCH (08:59)
[2025-10-03] MEDS: METOPROLOL SUCC 50MG EXT REL TAB PO SCH (08:59)
[2025-10-03] MEDS ORDERED: METOPROLOL SUCC 50MG EXT REL TAB PO SCH (09:00)
[2025-10-03] MEDS ORDERED: NON-FORMULARY MEDICATION (Dapagliflozin Propanediol [Farxiga] 10 mg tablet) PO SCH (09:00)
[2025-10-03] MEDS: ESCITALOPRAM OXALATE 20 MG TAB PO SCH (09:00)
[2025-10-03] MEDS: SPIRONOLACTONE 25 MG TAB PO SCH (09:00)
[2025-10-03] MEDS: LACTATED RINGER'S 1,000 ML IV SCH (12:09)
[2025-10-03] MEDS: PROCHLORPERAZINE 5 MG in SYRINGE 4 ML IV ONE (14:05)
[2025-10-03] MEDS: MAGNESIUM SULFATE / D5W 1 GM/100 ML BAG IV ONE (14:05)
--- NOTE | 2025-10-03 14:42 | Cardiology Consultation ---
Date of Consultation October 03, 2025 Assessment & Plan (1) Atrial fibrillation: (2) Nonischemic cardiomyopathy: (3) Anticoagulant long-term use: (4) Congestive heart failure: (5) Hypertension: (6) Frequent unifocal PVCs: Plan 1. Atrial fibrillation: He has had intermittent episodes of atrial fibrillation of which he was unaware, however he could usually tell by an increase in heart rate so I suspect he is not having much atrial fibrillation. The last electrocardiogram he had (and the last vital signs) were June 06, 2025 when he was in the office and he was in sinus statin. I suspect it is recent and possibly related to his viral illness. Still I do not like him being that fast with his history of cardiomyopathy and I think we should convert his rhythm back to normal. I am going to arrange this for tomorrow morning. 2. Cardiomyopathy: He has had a gradual improvement in his left ventricular function and his most recent outpatient echo suggested low normal systolic function and his current echocardiogram done during rapid atrial fibrillation is little hard to interpret but would be consistent with this. I am therefore going to continue with his current medical regimen. My understanding is that we should continue his medications for his left ventricular dysfunction even though we are not sure that he will need them over the long run. 3. Anticoagulation: He is doing well on Eliquis. He is on the correct dose based on his age, weight and kidney function and he has not missed doses recently. It should be safe to proceed with cardioversion. 4. Congestive heart failure: His symptoms of heart failure have improved substantially and he does not have fluid retention currently, has had an improvement in his exercise ability both clinically and by stress testing before developing his current illness. 5. Hypertension: His blood pressure is well controlled today on his current regimen and we have not detected symptomatic low blood pressures. He does not have orthostatic symptoms. 6. Frequent PVCs: He had PVCs historically although they did not appear to be frequent enough to cause development of his cardiomyopathy. With 5.3% on his Holter monitor April 03, 2023 we did continue to watch for these, but then at 13% I remain a little concerned that may be contributing to his cardiomyopathy although his ejection fraction is now nearly normalized so it does not fit well with that. On monitoring here he does not seem to have frequent PVCs at the moment. We are planning to repeat the Holter monitor this year but that would be best done during sinus rhythm. History of Present Illness Reason for Consultation: Atrial fibrillation with RVR, cardiomyopathy Attending Physician: Nick Ahuja DO History of Present Illness This is a 59-year-old gentleman with a history of hypertension and asthma who presented to [facility] in March 2017 with chest discomfort. Evaluation included stress echocardiography which was negative for ischemia, suggesting the chest discomfort was noncardiac. Echocardiography demonstrated normal left ventricular function. On telemetry however he was observed to have a wide complex rhythm, this was not associated with lightheadedness or palpitations (although he does describe symptoms of lightheadedness and palpitations at times but not during this arrhythmia). He was observed on telemetry to have periods of a ventricular rhythm with a heart rate in the 50s to 70s, although sometimes irregular and at times a little bit faster. A follow-up echocardiogram done July 15, 2018 showed a mildly dilated left ventricle (5.6 cm) with normal systolic function and ejection fraction 55 to 60%. He did have mild left ventricular hypertrophy. He was somewhat hypokalemic in the emergency room and he had been taking potassium, he was on hydrochlorothiazide and was taking lisinopril for hypertension. He was not on a beta fish or an antiarrhythmic. He was discharged with an event monitor for chcf monitoring. He had a number of automatic recordings for ventricular arrhythmias. The ventricular arrhythmias demonstrate an irregular pattern of varying durations, some of these more in the 100 beat per minute range, others were slower and appeared to be an accelerated ventricular rhythm in the mid 70s. They seemed to occur at different times of day. The longest episode that I saw was on 06/23/2017 at about 6 PM, this lasted approximately 30 seconds, was quite irregular and there were some supr aventricular beats conducted during the arrhythmia. The heart rate was a little over 100 on average but quite irregular. I don't believe there were any symptoms. With these findings I added Bystolic 10 mg daily to his regimen and discontinued the lisinopril. His Bystolic had been gradually titrated, in part for blood pressure control, to a dose of 40 mg daily. He was in the emergency room June 27, 2018 when a ceramic object fell on his head and he had a concussion, but it was not from him falling, etc. due to an arrhythmia. He had a prolonged recovery from that event. Ultimately he went b [facility] to [facility] full-time. A Holter monitor done July 12, 2018 showed sinus rhythm with a range from 39 to 96 bpm and an average of 57. He had 2827 premature ventricular beats which included runs of bigeminy and isolated premature beats. He did have dizziness at times which may have correlated with premature ventricular beats. He was feeling fatigued a lot of the time and was not sleeping well at night which had been going on for several years and he felt that that made him tired during the day. His tells him that he snores intermittently but not all of the time. I arranged a sleep study which was done at home on March 23, 2020, it was somewhat abnormal but not to the point where referral to pulmonary for CPAP seemed warranted. He was diagnosed with asthma which was felt a cause of his dyspnea on exertion. He also had COVID in July 2022 and was seen in the emergency room on August 21, 2022. He was not admitted, however an electrocardiogram done at the time did show atrial fibrillation with a heart rate of [address]-T abnormalities. Subsequently his symptoms of shortness of breath appeared to worsen. He was treated for asthma. Pulmonary function tests December 14, 2022 were consistent with his history of asthma. He presented to [facility] as an outpatient for an echocardiogram on January 05, 2023, by verbal report that echocardiogram showed significant left ventricular dysfunction. I therefore referred him to the emergency room. In the emergency room he was noted to be in rate controlled atrial fibrillation, his initial troponin was mildly elevated to 35.3 and 3 subsequent measurements are all in about that range. His chest x-ray suggested mild congestive heart failure and cardiomegaly. He was diuresed in the hospital and started on medical therapy for his cardiomyopathy. Reversible causes of cardiomyopathy were evaluated although an ischemic evaluation was not performed at that time due to his clinical status and the fact that it was not likely an ischemic cardiomyopathy. An echocardiogram done at [facility] on January 16, 2023 showed severe left ventricular dysfunction with ejection fraction of 25 to 30%. He remained in atrial fibrillation. He was treated with guideline directed medical therapy for his cardiomyopathy and a repeat echocardiogram on January 31, 2023 done in the [facility] hospital showed a moderately dilated left ventricle with ejection fraction reported at 15 to 20% although by my estimation on direct comparison I do not think it was worse than his prior. Cardioversion was performed on February 05, 2023 successfully. A Holter monitor was worn from March 27, 2023 through March 30, 2023, his rhythm was sinus and the heart rate range was from 38-123 with an average of 66. There was no atrial fibrillation, he did have a occasional runs of PAT up to 19 beats and he had 6.3% premature ventricular beats. He did have some nonsustained ventricular tachycardia with the longest episode being AIVR (which he had historically) with up to 9 beats at a rate of 72 bpm. This was asymptomatic. An echocardiogram was performed March 10, 2023, this showed a mildly dilated left ventricle with concentric left ventricular hypertrophy and ejection fraction felt to be 35 to 40%. This appeared improved compared to January 31, 2023. He had a treadmill stress echo performed on March 27, 2023 where he reached 87% of his maximal predicted heart rate, his blood pressure response was normal and his exercise tolerance was acceptable at 8.1 METS. He had no evidence of ischemia. An echocardiogram done August 05, 2023 shows severe left ventricular dilatation with moderate left ventricular dysfunction in a global manner, his ejection fraction was 30 to 35% and left ventricular diastolic dim ension was 7.2 cm. This was reported as unchanged from February 2023 however the ejection fraction on the prior study was 35 to 40% and left ventricular diastolic dimension was 6.1 cm. An echocardiogram done January 22, 2024 shows mild left ventricular dysfunction with an ejection fraction of 40 to 45% and moderate left ventricular dilatation with mild concentric left ventricular hypertrophy. Left ventricular diastolic dimension was 5.9 cm. This appears to show a definite improvement. An echocardiogram done August 09, 2024 shows borderline left ventricular dilatation with low normal left ventricular function with an ejection fraction of 50 to 55% and a borderline dilated ascending aorta at 3.9 cm. I did refer him to [facility] and he saw Dr. Yepez on February 15, 2024. Subsequently he had a metabolic stress test performed on March 17, 2024, I have the report and it was done as a modified Sammy protocol where he achieved 9.3 METS with a good heart rate response and I suspect a normal blood pressure response although his blood pressure did reach 202/96. He did have frequent premature ventricular beats and ventricular couplets during the test. He seemed to exercise quite well. Although he will stay in the loop at [facility] for future therapies was felt that our current approach was sufficient at this time. I did repeat his Holter monitor due to his longstanding ventricular ectopy, a 3- day Holter monitor was performed from October 28, 2024 through October 31, 2024. His rhythm was sinus (without atrial fibrillation) but with very frequent ventricular ectopy. His heart rate range was from 44 to 204 bpm, although that was a ventricular arrhythmia and his sinus rate was not that fast, with an average heart rate of 70 bpm. He did have 13.4% premature ventricular beats, 10.3% were isolated, 2% in couplets and 814 ventricular events with the longest 25 beats (which was AIVR at about 65 bpm). Most of his PVCs were of 1 morphology (99.5%). He was evaluated by Dr. Parikh at [facility] who noted that he had multifocal PVCs which would make targeting them with ablation difficult, although based on our last report 99.5% of his premature beats were categorized as a single morphology so this potentially could be reevaluated if indicated.. If he has recurrent atrial fibrillation she felt we should consider ablation of that arrhythmia to avoid recurrent cardiomyopathy although I do not think we ever established whether the cardiomyopathy or the atrial fibrillation was the primary event at the time and we treated both with good success. When I last saw him in the office in mid May 2025 he had been working full- time, he did not have symptoms of atrial fibrillation and did not seem to have symptoms related to his premature beats. He presented to the emergency room October 02, 2025 with what appeared to be a viral illness, his first troponin was 40.6 but the second 1 less than 2 hours later was only 8.8. His presenting electrocardiogram showed atrial fibrillation with a somewhat rapid heart rate of 96, however during the night (this morning at 224) his electrocardiogram showed atrial fibrillation with a rapid heart rate of 167. He remains on metoprolol succinate 200 mg daily as well as his other heart failure medications. He is also on Eliquis as his anticoagulant. He has been feeling better since admission, he has very little awareness of his atrial fibrillation despite the rapid heart rate. He feels that his throat symptoms are nearly resolved and he does not have much in the way of cardiovascular symptoms but has not been very active. Prior to renny his recent illness he was quite active and feeling well. Allergies Allergy/AdvReac Type Severity Reaction Status Date / Time ceftriaxone [From Rocephin] Allergy Severe Throat Verified 06/06/25 11:54 Swelling Tetracyclines Allergy Severe VOMITING Verified 06/06/25 11:54 AND RASH amoxicillin Allergy Unknown RX AN Verified 06/06/25 11:54 INFANT clavulanic acid Allergy Unknown RX AN Verified 06/06/25 11:54 INFANT erythromycin base Allergy Unknown REACTION Verified 06/06/25 11:54 TO PCN AND AUGMENTIN Penicillins Allergy Unknown REACTION Verified 06/06/25 11:54 AN - UNKNOWN banana AdvReac Intermediate Vomiting Verified 06/06/25 11:54 hydromorphone [From Dilaudid] AdvReac Intermediate Vomiting Verified 06/06/25 11:54 Home Medications Medication Instructions Recorded Confirmed Type ascorbate calcium (vitamin C) 500 500 mg PO QAM 08/17/19 10/02/25 History mg tablet cholecalciferol (vitamin D3) 10 400 units PO QAM 08/17/19 10/02/25 History mcg (400 unit) capsule montelukast 10 mg tablet 10 mg PO QAM 08/17/19 10/02/25 History melatonin 5 mg capsule 5 mg PO HS 09/03/22 10/02/25 History calcium 500 mg 3 tab PO QAM 01/05/23 10/02/25 History (carb,gluconate)-magnesium 250 mg (gluc,oxide) tablet (Calcium Magnesium) multivitamin 1 tab PO QAM 01/05/23 10/02/25 History famotidine 20 mg tablet (Pepcid) 20 mg PO BID PRN Heartburn 01/30/23 10/02/25 History furosemide 20 mg tablet (Lasix) 20 mg PO DAILY PRN Weight Gain 01/30/23 10/02/25 History fluticasone 500 mcg-salmeterol 50 0 inh inhalation BID 02/19/23 10/02/25 History mcg/dose blistr powdr for inhalation (Advair Diskus) fluticasone propionate 50 0 spray intranasal DAILY 10/27/23 10/02/25 History mcg/actuation nasal spray,suspension albuterol sulfate 90 mcg/actuation 2 puffs inhalation Q4H PRN 11/02/23 10/02/25 Rx breath activated powder inhaler Shortness Of Breath Or Wheezing or cough #1 ea metoprolol succinate 200 mg 200 mg PO QAM #90 tabs 11/24/24 10/02/25 Rx tablet,extended release 24 hr apixaban 5 mg tablet (Eliquis) 5 mg PO BID #180 tabs 04/27/25 10/02/25 Rx dapagliflozin propanediol 10 mg 10 mg PO QAM #90 tabs 04/27/25 10/02/25 Rx tablet (Farxiga) sacubitril 97 mg-valsartan 103 mg 1 tab PO BID #180 tabs 04/27/25 10/02/25 Rx tablet (Entresto) spironolactone 25 mg tablet 25 mg PO DAILY #90 tabs 05/19/25 10/02/25 Rx escitalopram oxalate 20 mg tablet 20 mg PO DAILY 06/06/25 10/02/25 History (Lexapro) ropinirole 2 mg tablet 2 mg PO DAILY 06/06/25 10/02/25 History fhfufxcszg-hxpeukdeocxad-mircekve 0 cap PO Q6H PRN headache/migraine 10/02/25 10/02/25 History 50 mg-300 mg-40 mg capsule (Fioricet) ondansetron 4 mg disintegrating 0 mg PO Q6H PRN nausea and vomiting 10/02/25 10/02/25 History tablet Patient History Medical History Atrial fibrillation with rapid ventricular response History of COVID-19 10/27/23 tested positive at [facility] through the emergency room. treated with paxlovid on 10/27/23. symptoms: flu symptoms. Migraine hx Atrial fibrillation s/p cardioversion 01/2023 [place]. on Eliquis. Follows with Dr. Rios. 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 CHF (congestive heart failure) Restless leg syndrome Surgical History History of cardioversion (~01/2023) at [facility] Family history of reaction to anesthesia MOTHER AND DAUGHTER>N/V Nausea and vomiting after administration of anesthetic agent History of arthroscopy left knee Hx of vasectomy History of colonoscopy History of tooth extraction History of ear surgery ? details Family History Daughter PONV (postoperative nausea and vomiting) Mother PONV (postoperative nausea and vomiting) Social History Smoking Status: Never smoker Tobacco Type: Cigars Second Hand Exposure: No; Do You Dip or Chew Tobacco: No; Hx Alcohol Use: No Hx Substance Use: No Preferred Language: Georgian Communication Ability: Effective Environmental Communications Specialist Required: No Beliefs That Will Affect Care: None Current Living Situation: Spouse current occupation: [employer] Other Information That Helps Us Care for You: No Feels Safe at Home: Yes Safety Concerns: Feels Safe At This Time Assistive Devices: None Review of Systems Review of Systems: All systems reviewed & are unremarkable except as noted in HPI & below Physical Exam Physical Exam: Constitutional: Alert, cooperative and in no distress. HEENT: Unremarkable Neck: No jugular venous distention, carotid pulses are irregular but otherwise normal and equal bilaterally without bruits. Pulmonary: Clear to auscultation bilaterally. Cardiac: Irregular somewhat rapid rhythm with no murmur, gallop or rub. Abdomen: Soft, nontender with normal bowel sounds. Extremities: No edema. Neurologic: No focal findings. Gait is steady. Skin: No rash, ecchymoses or petechiae. Results & Data Vital Signs (Past 12 Hours) Vital Signs Temp Pulse Pulse Resp BP BP Pulse Ox 10/03/25 12:57 107 H 10/03/25 09:55 10/03/25 07:11 37.1 C 90 18 128/85 93 10/03/25 06:06 127 H 10/03/25 03:40 36.7 C 116 H 16 151/82 H 92 10/03/25 02:53 147 H 119/73 O2 Del Method 10/03/25 12:57 10/03/25 09:55 Room Air 10/03/25 07:11 Room Air 10/03/25 06:06 10/03/25 03:40 Room Air 10/03/25 02:53 Laboratory Results CBC 10/03/25 Range/Units 06:54 WBC 11.53 H (4.8-10.8) K/ul RBC 5.68 (4.70-6.10) M/uL Hgb 16.5 (14.0-18.0) g/dl Hct 49.4 (42.0-52.0) % Plt Count 187 (130-400) K/uL Neut # (Auto) 9.46 H (1.40-6.50) K/uL Lymph # (Auto) 1.01 L (1.20-3.40) K/uL Jackson # (Auto) 0.89 H (0.11-0.59) K/uL Eos # (Auto) 0.10 (0.00-0.50) K/uL Baso # (Auto) 0.02 (0.00-0.20) K/uL Comprehensive Metabolic Panel 10/03/25 10/03/25 Range/Units 06:54 08:08 Sodium 139 (136-145) mmol/L Potassium TNP 4.2 Chloride 104 (98-107) mmol/L Carbon Dioxide 29 (21-32) mmol/L BUN 17 (6-23) mg/dl Creatinine 1.13 (0.6-1.4) mg/dl Glucose 93 (70-99(Fasting)) mg/dl Calcium 9.1 (8.6-10.3) mg/dl Intake and Output 10/02/25 10/03/25 10/03/25 22:59 06:59 14:59 Intake Total 350 / 350 Balance 350 / 350 Intake: IV 100 / 100 Acetaminophen 1,000 mg In 100 100 / 100 ml @ 400 mls/hr IV NOW STA Rx#: [id number] Oral 250 / 250 Other: # Unmeasured Voids 2 Weight 118.026 kg 117.9 kg Weight Measurement Method Standing Scale Diagnostic Findings Telemetry: Atrial fibrillation since admission, rate sometimes very fast (in excess of 200 bpm) Echocardiogram: I reviewed his echocardiogram which was done during rapid atrial fibrillation, that makes the ejection fraction difficult to determine with accuracy. I believe however that his ejection fraction remains low normal. The formal reading of this echocardiogram is pending. PG Care Time/CCT Total # of Minutes Spent Total Time Spent with Patient: Total time spent is greater than 50% in coordination of care (as documented) at patient's floor/unit and/or counseling patient: Coding Level of Care Code 83898 IN/OBS CONSULT LVL 5,80M Diagnoses Atrial fibrillation I48.91 Atrial fibrillation type: unspecified Nonischemic cardiomyopathy I42.8 Anticoagulant long-term use Z79.01 Chronic combined systolic and diastolic congestive heart failure I50.9 Heart failure chronicity: acute on chronic Heart failure type: unspecified Primary hypertension I10 Hypertension type: primary hypertension Frequent unifocal PVCs I49.3 (1) Atrial fibrillation Atrial fibrillation type: unspecified Qualified Code(s): I48.91 - Unspecified atrial fibrillation (4) Congestive heart failure Heart failure chronicity: acute on chronic Heart failure type: unspecified Qualified Code(s): I50.9 - Heart failure, unspecified (5) Hypertension Hypertension type: primary hypertension Qualified Code(s): I10 - Essential (primary) hypertension
--- NOTE | 2025-10-03 14:48 | Hospitalist Progress Note ---
Date of Service October 03, 2025 Assessment & Plan (1) Elevated troponin: (2) Nonischemic cardiomyopathy: (3) Rhinovirus: Plan 59 y/o male with PMH idiopathy Cardiomyopathy, Afib, CHF, HTN, GERD, asthma that presented to the ED due to general malaise, sore throat, palpitations and chest discomfort. Symptoms started last night. States having sporadic cough as well. Denied any SOB now now but does states feeling more SOB in the last couple of days. He'd been traveling recently due to work, he admitted not following low sodium diet. 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 Denied any chest pain on evaluation. Denied any abdominal pain, nausea or vomiting. Denied any orthopnea. Patient found positive for rhino virus and positive mono test. Due to SOB and general maise will admit for further monitoring #rhinovirus infection - reporting continued cough and general malasie this morning. having some discomfort with coughing. - remains afebrile. WBC 11.5. Electrolytes and kidney function remain stable - Biofire positive for rhinovirus and positive mono test - EBV panel negative for an acute infection - CXR: Mild cardiomegaly. No focal consolidations. No pulmonary edema or effusion - Symptomatic treatment: Tylenol, cough syrup - CBC, BMP qAM #paroxysmal a.fib - continued a fib with RVR overnight with rates in 150s. Highest HR overnight 210, however was asymptomatic. This morning, remains in a fib with rate in 150s, however now experiencing some sensation of fluttering and dizziness. - suspect some level of dehydration due to vomiting and poor PO. Given LR 80 ml/hr - history of cardioversion x2. most recent was about 1.[address] Ventura. - continue eliquis 5mg bid - cardiology consulted and waiting further recommendations #mild CHF/idiopathic cardiomyopathy - was having increased SOB, palpitations and chest discomfort prior to admission, unsure of how much of these symptoms were a result of rhinovirus vs acute CHF exacerbation - last echo 2023, repeated on admission, waiting for final result - BNP 365 on admission, however appears mildy dehydrated on exam today - Continue spironolactone, Entresto and Farxiga - Daily weight, and I/Os #elevated troponin - Arrival 40.6 repeat 8 - EKK afib, no ST elevation or depression - Echocardiogram ordered - continue telemetry Dispo: Med Tele - DVT prophylaxis: Hans Admission and Anticipated Discharge Date Admission Date: October 02, 2025 Supervising Physician Co-Signing Physician Notes ATTESTATION I also saw the patient and confirmed khalil portions of the history and exam. I agree with the impression and plan in the resident documentation, and as summarized below. Did not sleep well last night. This sounds to be secondary to an ongoing issue which sounds to be either restless legs or nocturnal cramps. He had been taking Flexeril for quite some time then this was switched to Requip which unfortunately is not working as well. He describes symptoms at rest which sound like restless legs, but then will also described using a foam roller which seems to help. He continues to cough quite a bit. We discussed that this is a rather defining feature of rhinovirus. Really no dyspnea. EXAM 101/70, 97, 18, 36.8, 91% on room air Heart irregularly irregular consistent with atrial fibrillation Lungs with nonlabored respirations; clear DATA Labs white blood cell count 11.53, hemoglobin 16.5 BMP is unremarkable with BUN 20, creatinine 1.11 Mg 2.2 Iron was last checked in 2022 and was 92. Imaging chest x-ray completed upon admission shows mild cardiomegaly but no evidence of focal pulmonary consolidation or pulmonary congestion. 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 patient's on phone and questions were answered for both patient and . alert, awake, no acute distress. Having episodes of a. fib RVR overnight without symptoms. Did have migraine with episode of vomiting and was given migraine cocktail, to some improvement of symptoms. This morning, telemetry still with A fib RVR and there was a short 7 beat run of VT. Patient without chest pain or SOB, however endorses some fluttering in chest with dizziness. Tolerating PO without concerns, denies further nausea or vomiting episodes. Review of Systems Review of Systems: as per hpi Physical Exam Constitutional: WD/WN, vitals as above Respiratory: normal respiratory effort, lungs clear to auscultation normal respiratory effort; no respiratory distress and no labored breathing Cardiovascular: Rate/Rhythm: + irregularly irregular Heart Sounds: no murmur Vessels: no JVD Extremities: no edema Gastrointestinal (Abdomen): normal bowel sounds, soft, nontender, no hepatosplenomegaly Musculoskeletal: Extremities: extremities normal to inspection Skin: no rashes, warm and dry Neurologic: no focal neurologic deficits Psychiatric: A+Ox3, euthymic affect Results & Data Results & Data Vital Signs (Past 12 Hours) Vital Signs Temp Pulse Pulse Resp BP BP Pulse Ox 10/03/25 12:57 107 H 10/03/25 09:55 10/03/25 07:11 37.1 C 90 18 128/85 93 10/03/25 06:06 127 H 10/03/25 03:40 36.7 C 116 H 16 151/82 H 92 10/03/25 02:53 147 H 119/73 O2 Del Method 10/03/25 12:57 10/03/25 09:55 Room Air 10/03/25 07:11 Room Air 10/03/25 06:06 10/03/25 03:40 Room Air 10/03/25 02:53
[2025-10-03] MEDS: CYCLOBENZAPRINE HCL 10 MG TAB PO SCH (21:42)
[2025-10-04 04:32] VITALS: TEMP 97.7
[2025-10-04 08:39] LABS: Hematocrit (blood only) 49.8 % (42.0-52.0); Hemoglobin 16.4 g/dL (14.0-18.0); Mean Corpuscular Hemoglobin 29.0 pg (25.0-34.0); Mean Corpuscular Volume 88.0 fL (80.0-100.0); Platelet Count 204 K/uL (130-400); RDW Standard Deviation 42.6 fL (36.4-46.3); Red Blood Count 5.66 M/uL (4.70-6.10); White Blood Count 9.64 K/ul (4.8-10.8)
[2025-10-04 09:00] LABS: Anion Gap 8.0 (3-11); Blood Urea Nitrogen 21.0 mg/dl (6-23); Calcium 9.4 mg/dl (8.6-10.3); Carbon Dioxide 28.0 mmol/L (21-32); Chloride 102.0 mmol/L (98-107); Creatinine Clr Calc Pharmacy 103.3 ml/min; Glucose 105.0 mg/dl (70-99(Fasting)); Potassium 4.3 mmol/L (3.5-5.1); Sodium 138.0 mmol/L (136-145)
[2025-10-04] MEDS ORDERED: PROPOFOL IV EMULSION 10 MG/ML 20 ML VIAL IV ONE (10:47)
--- NOTE | 2025-10-04 10:48 | Anesthesiology Consultation ---
Date of Service October 04, 2025 History Surgery Operation Date: 10/04/25 13:30 Proposed Procedures p Cardioversion - Velasquez Ventura MD Height/Weight Height: 6 ft 3 in Weight: 117.5 kg Allergies Allergy/AdvReac Type Severity Reaction Status Date / Time ceftriaxone [From Rocephin] Allergy Severe Throat Verified 06/06/25 11:54 Swelling Tetracyclines Allergy Severe VOMITING Verified 06/06/25 11:54 AND RASH amoxicillin Allergy Unknown RX AN Verified 06/06/25 11:54 clavulanic acid Allergy Unknown RX AN Verified 06/06/25 11:54 erythromycin base Allergy Unknown REACTION Verified 06/06/25 11:54 TO PCN AND AUGMENTIN Penicillins Allergy Unknown REACTION Verified 06/06/25 11:54 AN INFANT - UNKNOWN banana AdvReac Intermediate Vomiting Verified 06/06/25 11:54 hydromorphone [From Dilaudid] AdvReac Intermediate Vomiting Verified 06/06/25 11:54 Medications Home Medications Medication Instructions Recorded Confirmed Last Taken ascorbate calcium (vitamin C) 500 500 mg PO QAM 08/17/19 10/02/25 12/14/23 mg tablet cholecalciferol (vitamin D3) 10 400 units PO QAM 08/17/19 10/02/25 12/14/23 mcg (400 unit) capsule montelukast 10 mg tablet 10 mg PO QAM 08/17/19 10/02/25 12/14/23 melatonin 5 mg capsule 5 mg PO HS 09/03/22 10/02/25 12/13/23 calcium 500 mg 3 tab PO QAM 01/05/23 10/02/25 12/14/23 (carb,gluconate)-magnesium 250 mg (gluc,oxide) tablet (Calcium Magnesium) multivitamin 1 tab PO QAM 01/05/23 10/02/25 12/14/23 famotidine 20 mg tablet (Pepcid) 20 mg PO BID PRN Heartburn 01/30/23 10/02/25 11/12/23 furosemide 20 mg tablet (Lasix) 20 mg PO DAILY PRN Weight Gain 01/30/23 10/02/25 10/26/23 fluticasone 500 mcg-salmeterol 50 0 inh inhalation BID 02/19/23 10/02/25 12/14/23 08:00 mcg/dose blistr powdr for inhalation (Advair Diskus) fluticasone propionate 50 0 spray intranasal DAILY 10/27/23 10/02/25 12/14/23 mcg/actuation nasal spray,suspension albuterol sulfate 90 mcg/actuation 2 puffs inhalation Q4H PRN 11/02/23 10/02/25 10/26/23 breath activated powder inhaler Shortness Of Breath Or Wheezing or cough #1 ea metoprolol succinate 200 mg 200 mg PO QAM #90 tabs 11/24/24 10/02/25 Unknown tablet,extended release 24 hr apixaban 5 mg tablet (Eliquis) 5 mg PO BID #180 tabs 04/27/25 10/02/25 Unknown dapagliflozin propanediol 10 mg 10 mg PO QAM #90 tabs 04/27/25 10/02/25 Unknown tablet (Farxiga) sacubitril 97 mg-valsartan 103 mg 1 tab PO BID #180 tabs 04/27/25 10/02/25 Unknown tablet (Entresto) spironolactone 25 mg tablet 25 mg PO DAILY #90 tabs 05/19/25 10/02/25 Unknown escitalopram oxalate 20 mg tablet 20 mg PO DAILY 06/06/25 10/02/25 Unknown (Lexapro) ropinirole 2 mg tablet 2 mg PO DAILY 06/06/25 10/02/25 Unknown wvmduduotk-nfkrbgmmdbgml-skbmrcyb 0 cap PO Q6H PRN headache/migraine 10/02/25 10/02/25 Unknown 50 mg-300 mg-40 mg capsule (Fioricet) ondansetron 4 mg disintegrating 0 mg PO Q6H PRN nausea and vomiting 10/02/25 10/02/25 Unknown tablet Active Medications Generic Name Dose Route Start Last Admin Trade Name Freq PRN Reason Stop Dose Admin Acetaminophen 650 mg 10/02/25 15:23 10/04/25 03:08 Acetaminophen 325 Mg Tab PO 11/01/25 15:22 650 mg Q4H PRN Administration Pain or Fever Acetaminophen/Butalbital/Caffeine 1 tab 10/02/25 15:32 10/02/25 20:27 Butalbital/Acetamin/Caffeine Tab PO 11/01/25 15:31 1 tab Q6H PRN Administration headache/migraine Apixaban 5 mg 10/02/25 21:00 10/04/25 08:41 Apixaban 5 Mg Tablet PO 11/01/25 20:59 5 mg BID DONNIE Administration Cyclobenzaprine HCl 10 mg 10/03/25 21:00 10/03/25 21:42 Cyclobenzaprine Hcl 10 Mg Tab PO 11/02/25 20:59 10 mg HS DONNIE Administration Escitalopram Oxalate 20 mg 10/03/25 09:00 10/04/25 08:41 Escitalopram Oxalate 20 Mg Tab PO 11/02/25 08:59 20 mg DAILY DONNIE Administration Fluticasone/Vilanterol 1 puffs 10/02/25 15:45 10/04/25 08:41 Fluticasone/Vilanterol 200/25mcg 14 Puffs/Inhaler INH 11/01/25 15:44 1 puffs DAILY DONNIE Administration Guaifenesin/Dextromethorphan 5 ml 10/02/25 15:23 10/03/25 21:40 Guaifenesin/Dextrom Syrup 100mg/10mg 5ml Udc PO 11/01/25 15:22 5 ml Q6H PRN Administration Cough Melatonin 3 mg 10/02/25 21:00 10/03/25 21:42 Melatonin 3 Mg Tab PO 11/01/25 20:59 3 mg HS DONNIE Administration Menthol 1 ashley 10/02/25 12:18 10/02/25 20:07 Cough Drop (Sugar Free) Ashley 24 Ashley/1 Box BUCCAL 11/01/25 12:17 1 ashley Q2H PRN Administration Sore Throat Metoprolol Succinate 200 mg 10/03/25 09:00 10/04/25 08:41 Metoprolol Succ 50mg Ext Rel Tab PO 11/02/25 08:59 200 mg QAM DONNIE Administration Ondansetron HCl 4 mg 10/02/25 15:23 10/02/25 21:12 Ondansetron Inj 2 Mg/Ml 2 Ml Vial IV 11/01/25 15:22 4 mg Q6H PRN Administration Nausea Ropinirole HCl 2 mg 10/02/25 21:00 10/03/25 21:43 Ropinirole Hcl 2 Mg Tablet PO 11/01/25 20:59 2 mg HS DONNIE Administration Sacubitril/Valsartan 1 tab 10/02/25 21:00 10/04/25 08:42 Valsartan/Sacubitril 103/97mg Tab PO 11/01/25 20:59 1 tab BID DONNIE Administration Spironolactone 25 mg 10/03/25 09:00 10/04/25 08:43 Spironolactone 25 Mg Tab PO 11/02/25 08:59 25 mg DAILY DONNIE Administration Past Medical History Medical History Atrial fibrillation with rapid ventricular response History of COVID-19 10/27/23 tested positive at [facility] through the emergency room. treated with paxlovid on 10/27/23. symptoms: flu symptoms. Migraine hx Atrial fibrillation s/p cardioversion 01/2023 [place]. on Eliquis. Follows with Dr. Rios. 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 CHF (congestive heart failure) Restless leg syndrome Past Family History Family History Daughter PONV (postoperative nausea and vomiting) Mother PONV (postoperative nausea and vomiting) Past Surgical History Surgical History History of cardioversion (~01/2023) at [facility] Family history of reaction to anesthesia MOTHER AND DAUGHTER>N/V Nausea and vomiting after administration of anesthetic agent History of arthroscopy left knee Hx of vasectomy History of colonoscopy History of tooth extraction History of ear surgery ? details Social History Smoking Status: Never smoker tobacco type: cigars Do You Dip or Chew Tobacco: No Hx Alcohol Use: No Hx Substance Use: No substance use type: does not use Physical Exam Vital Signs Last Vital Signs Temp 36.5 C 10/04/25 07:21 Pulse 122 H 10/04/25 07:54 Resp 18 10/04/25 07:21 BP 115/73 10/04/25 07:21 Pulse Ox 93 10/04/25 07:21 O2 Del Method Room Air 10/04/25 07:21 Testing Laboratory Results 10/04/25 08:17 10/04/25 08:17 Urine Color Yellow 10/02/25 11:00 Urine Appearance Clear (Clear) 10/02/25 11:00 Urine pH 8.0 (4.5-7.5) H 10/02/25 11:00 Ur Specific Chama 1.017 (1.000-1.030) 10/02/25 11:00 Urine Protein Negative (Negative) 10/02/25 11:00 Urine Glucose (UA) 2+ (Negative) H 10/02/25 11:00 Urine Ketones Negative (Negative) 10/02/25 11:00 Urine Nitrite Negative (Negative) 10/02/25 11:00 Ur Leukocyte Esterase Negative (Negative) 10/02/25 11:00 Electrocardiogram Date: 10/03/25 Findings: + AFIB @ (167) RVR Echocardiogram Date: 08/09/24 EF: 50-55 LV Function: normal RWMA: + none Valvular Disease: + no significant valvular disease
[2025-10-04] MEDS: ACETAMINOPHEN 325 MG TAB PO STA (10:53)
[2025-10-04] MEDS: MAGNESIUM SULFATE / D5W 1 GM/100 ML BAG IV ONE (10:54)
[2025-10-04] MEDS: PROCHLORPERAZINE 5 MG in SYRINGE 4 ML IV ONE (10:57)
[2025-10-04] MEDS ORDERED: LACTATED RINGER'S 1,000 ML IV SCH (11:00)
--- NOTE | 2025-10-04 11:26 | Electrophysiology Report ---
Date of Service October 04, 2025 Electrophysiology Procedure Electrophysiology Procedure Report The patient was brought to the laboratory being NPO after midnight and was identified in the laboratory, connected to the recording apparatus including electrocardiographic monitoring, noninvasive blood pressure monitoring and pulse oximetry. Anteroposterior patch electrodes were placed. The patient was anesthetized by the anesthesia department. Once adequate anesthesia was obtained a synchronized biphasic shock was delivered using 200 J, there was a lot of ectopy and it was not clear that that shock was successful therefore another synchronized biphasic shock was delivered at 360 J with conversion to a sinus rhythm, although there was a lot of ectopy initially but then sinus rhythm returned. The patient awoke from the anesthetic without sequela, will be observed briefly and then discharged. [facility] [place] Electrophysiology codes Indication for Procedure (1) Atrial fibrillation: Miscellaneous Procedures Procedure 1: EP Miscellaneous: 23370 Cardioversion, elective
[2025-10-04] MEDS ORDERED: PHENYLEPHRINE HCL 10 MG/ML VIAL ONE (11:28)
--- NOTE | 2025-10-04 11:30 | Anesthesiology Progress Note ---
Date of Service October 04, 2025 Anesthesia Post Procedure Vital Signs Vital Signs: Temp Pulse Pulse Pulse Resp BP BP 10/04/25 11:28 71 16 104/74 10/04/25 11:10 115 H 18 112/63 10/04/25 07:54 122 H 10/04/25 07:21 36.5 C 89 18 115/73 10/04/25 04:15 36.5 C 66 18 128/85 10/03/25 23:15 36.8 C 73 18 108/68 10/03/25 21:59 128 H 10/03/25 21:00 10/03/25 19:30 37.0 C 81 18 119/81 10/03/25 15:18 36.8 C 97 H 18 101/70 10/03/25 12:57 107 H Pulse Ox O2 Del Method 10/04/25 11:28 93 Room Air 10/04/25 11:10 97 Room Air 10/04/25 07:54 10/04/25 07:21 93 Room Air 10/04/25 04:15 94 Room Air 10/03/25 23:15 91 Room Air 10/03/25 21:59 10/03/25 21:00 Room Air 10/03/25 19:30 92 Room Air 10/03/25 15:18 91 Room Air 10/03/25 12:57 Pain Intensity Head: Pain Intensity: 2 Transfer of Care Handoff Completed per policy Notes Mental Status: alert / awake / arousable Patient Amnestic to Procedure: Yes Nausea / Vomiting: adequately controlled Pain: adequately controlled Airway Patency, RR, SpO2: stable & adequate BP & HR: stable & adequate Hydration State: stable & adequate Anesthetic Complications: no major complications apparent and Pt Satisfied with anesthetic care
[2025-10-04 11:49] VITALS: PULSE 70
--- NOTE | 2025-10-04 14:44 | XCELERA ---
[id number] \\[id number]
[2025-10-04 15:11] VITALS: RESP 18; O2SAT 97
[2025-10-04 17:19] VITALS: BP 112/63
--- NOTE | 2025-10-04 17:51 | Discharge Summary ---
Date of Service October 04, 2025 Admission HPI Per Admitting Provider 59 y/o male with PMH idiopathy Cardiomyopathy, Afib, CHF, HTN, GERD, asthma that presented to the ED due to general malaise, sore throat, palpitations and chest discomfort. Symptoms started last night. States having sporadic cough as well. Denied any SOB now now but does states feeling more SOB in the last couple of days. He'd been traveling recently due to work, he admitted not following low sodium diet. 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 Denied any chest pain on evaluation. Denied any abdominal pain, nausea or vomiting. Denied any orthopnea. Patient found positive for rhino virus and positive mono test. Admission Exam Per Admitting Provider Constitutional: well developed and well nourished; no acute distress Respiratory: normal respiratory effort, lungs clear to auscultation Auscultation: no crackles and no wheezes Cardiovascular: Rate/Rhythm: + irregularly irregular Gastrointestinal (Abdomen): normal bowel sounds, soft, nontender, no hepatosplenomegaly Skin: no rashes, warm and dry Psychiatric: A+Ox3, euthymic affect Principal Diagnosis rhinovirus a fib RVR Discharge Exam Constitutional WD/WN, vitals as above Respiratory normal respiratory effort, lungs clear to auscultation normal respiratory effort; no respiratory distress and no labored breathing Cardiovascular Rate/Rhythm: regular rate and regular rhythm Heart Sounds: no murmur Vessels: no JVD Extremities: no edema Gastrointestinal (Abdomen) normal bowel sounds, soft, nontender, no hepatosplenomegaly Musculoskeletal Extremities: extremities normal to inspection Skin no rashes, warm and dry Psychiatric A+Ox3, euthymic affect Discharge Data Allergies Allergy/AdvReac Type Severity Reaction Status Date / Time ceftriaxone [From Rocephin] Allergy Severe Throat Verified 06/06/25 11:54 Swelling Tetracyclines Allergy Severe VOMITING Verified 06/06/25 11:54 AND RASH amoxicillin Allergy Unknown RX AN Verified 06/06/25 11:54 INFANT clavulanic acid Allergy Unknown RX AN Verified 06/06/25 11:54 erythromycin base Allergy Unknown REACTION Verified 06/06/25 11:54 TO PCN AND AUGMENTIN Penicillins Allergy Unknown REACTION Verified 06/06/25 11:54 AN INFANT - UNKNOWN banana AdvReac Intermediate Vomiting Verified 06/06/25 11:54 hydromorphone [From Dilaudid] AdvReac Intermediate Vomiting Verified 06/06/25 11:54 Consultations 10/02/25 11:32 ED Decision to Admit Stat 10/03/25 09:54 Consult Cardiology Routine 10/03/25 16:43 Consult Anesthesiology Routine Procedures Performed Operation Date: 10/04/25 13:30 Actual Procedures p Cardioversion - Velasquez Ventura MD Hospital Course (1) Elevated troponin: (2) Nonischemic cardiomyopathy: (3) Rhinovirus: Plan 59 y/o male with PMH idiopathy Cardiomyopathy, Afib, CHF, HTN, GERD, asthma that presented to the ED due to general malaise, sore throat, palpitations and chest discomfort. Symptoms started last night. States having sporadic cough as well. Denied any SOB now now but does states feeling more SOB in the last couple of days. He'd been traveling recently due to work, he admitted not following low sodium diet. 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 Denied any chest pain on evaluation. Denied any abdominal pain, nausea or vomiting. Denied any orthopnea. Patient found positive for rhino virus and positive mono test. Due to SOB and general maise will admit for further monitoring #rhinovirus infection - on arrival to ED [facility] positive for rhinovirus and positive mono test. EBV panel negative for acute infection. - CXR: Mild cardiomegaly. No focal c onsolidations. No pulmonary edema or effusion - reporting cough and generalized malaise were improving this morning, however just having some recurrent headaches. - remains afebrile. WBC 11.5. Electrolytes and kidney function remain stable on discharge. - Symptomatic treatment: Tylenol, cough syrup. #paroxysmal a.fib - continued a fib with RVR overnight, however was rate controlled on morning exam. Underwent cardioversion this afternoon with Dr. Ventura and tolerated procedure well. Plan to follow-up with cardiology after discharge. - suspect some level of dehydration due to vomiting and poor PO. Encourage oral fluid hydration at home after discharge. - continue eliquis 5mg bid #mild CHF/idiopathic cardiomyopathy - was having increased SOB, palpitations and chest discomfort prior to admission, unsure of how much of these symptoms were a result of rhinovirus vs acute CHF exacerbation - last echo 2023, repeated on admission, waiting for final result - BNP 365 on admission, however euvolemic on exam this AM. - Continue spironolactone, Entresto and Farxiga #elevated troponin - Arrival 40.6 repeat 8 - EKK afib, no ST elevation or depression Dispo: Med Tele - DVT prophylaxis: Hans Total Time Total Time Spent Total Time Spent (In Minutes): Nick Pritchett DO, attending physician, spent 35 minutes myself seeing the patient, reviewing the chart, and documenting today. Discharge Plan Discharge Items Patient Disposition: Home - Self-Care Reason For Visit: RHINOVIRUS/MILD CHF EXCAREBATION Discharge Diagnosis: Afib RVR Condition on Discharge: Fair Activity: Per Instructions section Non-emergency contact: Primary Care Provider Call non-emergency contact if: you have any medication questions Follow-up/Referrals: Chad Erickson MD [Primary Care Provider] - Diet: Heart Healthy Addtl Attending Provider Instructions: You were admitted to the hospital for rhinovirus and Atrial fibrillation with a high rate. You received a cardioversion today that helped change the rhythm of your hearth back to normal. Continue supportive treatment for the rhinovirus such as Tylenol and cough drops or decongestant For your restless leg syndrome, we will sent Flexeril 10 mg at night. continue taking the ropinirole A discharge summary will be sent to your primary care physician to ensure continuity of care. Please bring this discharge summary with you to your next office appointment so that your provider can review it at that time. Medications: Your medication list has been reviewed and reconciled upon discharge to ensure accuracy and continuity of care. An updated list of all your medications is included with your hospital discharge paperwork. Please review this list closely and make note of any changes to your medications. Follow up appointments: - Make a follow up appointment with your PCP within the next week. It is very important that you follow up with them shortly after discharge from the hospital. - Keep all of your follow up appointments as already scheduled. If you cannot make an appointment, notify your provider. CONTACT YOUR PRIMARY CARE PROVIDER if you experience any of the following: - Difficulty following your treatment plan - Difficulty taking any of your medications CALL 911 OR GO TO THE EMERGENCY DEPARTMENT if you experience any of the following: - Sudden, severe abdominal pain or nausea/vomiting - Severe chest pain or chest pain that radiates to your jaw or arm - Sudden, severe shortness of breath or difficulty breathing Pending Studies at Discharge: No Stand-Alone Forms: My [facility] [employer], Smoking Cessation Medications and DC Order Prescriptions: New cyclobenzaprine 10 mg Tablet 10 mg PO HS 30 Days Qty: 30 0RF Continued montelukast 10 mg tablet 10 mg PO QAM ascorbate calcium (vitamin C) 500 mg tablet 500 mg PO QAM Patient Comments: 10/02- otc unable to verify cholecalciferol (vitamin D3) 400 unit capsule 400 units PO QAM Patient Comments: 10/02- otc unable to verify Eliquis 5 mg tablet 5 mg PO BID Qty: 180 3RF Hold Instructions: Resume on 11/05/23. Farxiga 10 mg tablet 10 mg PO QAM Qty: 90 3RF Entresto 97-103 mg tablet 1 tab PO BID Qty: 180 3RF spironolactone 25 mg tablet 25 mg PO DAILY Qty: 90 3RF Rx Instructions: started after cardioversion. melatonin 5 mg capsule 5 mg PO HS Patient Comments: 10/02- otc unable to verify fluticasone propion-salmeterol [Advair Diskus] 500-50 mcg/dose blister with device 0 inh inhalation BID Patient Comments: 10/02- last filled 11/14/24 30 day supply metoprolol succinate 200 mg tablet extended release 24 hr 200 mg PO QAM Qty: 90 3RF escitalopram oxalate [Lexapro] 20 mg tablet 20 mg PO DAILY ropinirole 2 mg tablet 2 mg PO DAILY Calcium Magnesium 500 mg calcium -250 mg Tablet 3 tab PO QAM Patient Comments: 10/02- otc unable to verify multivitamin Tablet 1 tab PO QAM Patient Comments: 10/02- otc unable to verify famotidine [Pepcid] 20 mg Tablet 20 mg PO BID PRN (Reason: Heartburn) Patient Comments: 10/02- otc unable to verify furosemide [Lasix] 20 mg tablet 20 mg PO DAILY PRN (Reason: Weight Gain) Patient Comments: 10/02- no fill history unable to verify fluticasone propionate 50 mcg/actuation spray,suspension 0 spray INTRANASAL DAILY Patient Comments: 10/02- last filled 11/14/24 30 day supply albuterol sulfate 90 mcg/actuation aerosol powdr breath activated 2 puffs INH Q4H PRN (Reason: Shortness Of Breath Or Wheezing or cough) Qty: 1 0RF Patient Comments: 1 inh INH as needed; Rx Instructions: use with spacer device ondansetron 4 mg tablet,disintegrating 0 mg PO Q6H PRN (Reason: nausea and vomiting) Patient Comments: 10/02- no fill history unable to verify [id number] [Fioricet] 50-300-40 mg capsule 0 cap PO Q6H PRN (Reason: headache/migraine) Patient Comments: 10/02- no fill history unable to verify Discharge Orders: Discharge Order (Routine); Ordered 10/04/25 Ordered By: Long Reese Admission Data Admit Date/Time: 10/02/25 12:17 Attending Provider: Nick Ahuja Admit Provider: Nick Ahuja Primary Care Provider: Chad Erickson Other Providers: Gerald Trinidad; Velasquez Ventura; Malika Kern; Magaly Castillo; Isabel Peres; Amaya Pro; Jack Kelly; Amadou Manzanares; José Luis Sanchez; Fermin Michelle; Gabriella Amor; Kevan Zarate; Sekou Blankenship; Miguel Holcomb; Zenobia Stinson; Chad Beard; Lorrie Beard; Yung Doherty; Sandi Mckenzie; Timothy Roth; Abigail Granados; Courtney Cantu; Cabrera Machado; Isabel Rhodes; Billie Lockett; Gabrielle Martinez; Milady Pulido; Mat Pulido V; Jonathan Day; Magaly Waite; Leon Hennessy; Juli Romero; Mat Pimentel; Jordon Stinson; Elkin Lepe; Ayala Torrez; Mila Marshall; Mat Cornell; Johan Verma; Camryn Allen; Reji Huff; Nancy Zelaya; Leydi Parker; Wilder Goldstein; Jesus Patel; Alice Ledbetter; José Luis Murillo; Rhina García; Cathy Kasper; Robert Butler; Jack Rain Jr; Lilly Nogueira; Paola Gibson; Marlee Diaz; Cabrera Mitchell; Adrian Valle; Paola Vieira; Tha Selby; Remy Wolf; Leroy Chance; Rober Villela; Carin Valdez; Kishor Hoskins; Jessica Ruth; Cindy Lara; Erlinda Riggs; Pierce Mena Jr; Eryn Prince; Isabel Ovalle; Tiburcio Schilling; Naty Liang; Raysa Mcdonnell; Gabriella Holley; Keely Stinson; Alex Hicks Other Interventions: Discharge Summary Assessment (RN) Last Done: 10/04/25 17:13 Supervising Physician Co-Signing Physician Notes ATTESTATION I also saw the patient and confirmed khalil portions of the history and exam. I agree with the impression and plan in the resident documentation, and as s ummarized below. Patient underwent successful cardioversion to normal sinus rhythm this morning. I discussed the case with the attending imitation marble mechanic and patient is cleared for discharge from their perspective. I saw the patient twice today; midmorning and after his cardioversion. This afternoon, he is feeling somewhat better. He is ambulatory in the room without difficulty. He is dressed for discharge. Still bothered by the cough. Has not slept very well the last couple of nights but we discussed that hopefully he will get better sleep at home. From the standpoint of his upper respiratory infection, this is really just conservative care and time. Now he is back in sinus rhythm, I think he is feeling better. 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 Outpatient follow-up appointments were reviewed. I will see the patient in my office on 10/17/25; we will follow-up on his hospitalization as well as address the RLS type symptoms and the headaches if they still continue. He has follow-up in the heart failure clinic next week and he has an appointment scheduled with cardiology in December, but this can be moved up if necessary Additional per resident documentation Resident Activity Tracking Resident Involvement: Resident Care Provided Care Provided: Adult [facility]
[2025-10-04] MEDS ORDERED: MONTELUKAST SODIUM 10 MG TABLET PO SCH (21:00)
--- NOTE | 2025-10-05 16:23 | Electrocardiogram Report ---
Test Reason : Blood Pressure : */* mmHG Vent. Rate : 96 BPM Atrial Rate : * BPM P-R Int : * ms QRS Dur : 104 ms QT Int : 348 ms P-R-T Axes : * -18 37 degrees QTcB Int : 439 ms Atrial fibrillation Cannot rule out Inferior infarct (cited on or before 07-Jan-2023) Cannot rule out Anterior infarct , age undetermined Abnormal ECG When compared with ECG of 06-Jun-2025 11:40, Atrial fibrillation has replaced Sinus rhythm Vent. rate has increased by 47 bpm Confirmed by Velasquez Ventura ([id number]) on 10/05/2025 4:22:58 PM Referred By: Confirmed By: Velasquez Ventura
--- NOTE | 2025-10-06 08:02 | Electrocardiogram Report ---
Test Reason : Blood Pressure : */* mmHG Vent. Rate : 167 BPM Atrial Rate : * BPM P-R Int : * ms QRS Dur : 96 ms QT Int : 288 ms P-R-T Axes : * -19 14 degrees QTcB Int : 480 ms Atrial fibrillation with rapid ventricular response Inferior infarct (cited on or before 07-Jan-2023) Abnormal ECG When compared with ECG of 02-Oct-2025 10:07, (unconfirmed) Vent. rate has increased by 71 bpm Confirmed by Velasquez Ventura ([id number]) on 10/06/2025 8:01:43 AM Referred By: REFERRED SELF Confirmed By: Velasquez Ventura
--- NOTE | 2025-10-06 09:21 | Electrocardiogram Report ---
Test Reason : Blood Pressure : */* mmHG Vent. Rate : 67 BPM Atrial Rate : 67 BPM P-R Int : 162 ms QRS Dur : 100 ms QT Int : 398 ms P-R-T Axes : 61 -7 39 degrees QTcB Int : 420 ms Normal sinus rhythm Inferior infarct (cited on or before 07-Jan-2023) Cannot rule out Anterior infarct , age undetermined Abnormal ECG When compared with ECG of 03-Oct-2025 02:24, (unconfirmed) Sinus rhythm has replaced Atrial fibrillation Vent. rate has decreased by 100 bpm Nonspecific T wave abnormality now evident in Anterior leads Confirmed by Velasquez Ventura ([id number]) on 10/06/2025 9:21:06 AM Referred By: REFERRED SELF Confirmed By: Velasquez Ventura
== END 2025-10-04 17:49 | disposition home or self-care (01) | DRG 202 ==
LOC: ED 09:39 → EDINP 12:17 → 2W 15:24

== ENCOUNTER 2025-10-07 08:57 | Inpatient (IN) ==
[2025-10-07 09:37] LABS: Hematocrit (blood only) 49.5 % (42.0-52.0); Hemoglobin 16.7 g/dL (14.0-18.0); Immature Granulocytes # (auto) 0.04 K/uL (0.01-0.20); Immature Granulocytes % (auto) 0.4 %; Mean Corpuscular Hemoglobin 29.0 pg (25.0-34.0); Mean Corpuscular Volume 85.9 fL (80.0-100.0); Platelet Count 258 K/uL (130-400); RDW Standard Deviation 40.1 fL (36.4-46.3); Red Blood Count 5.76 M/uL (4.70-6.10); White Blood Count 10.77 K/ul (4.8-10.8)
--- NOTE | 2025-10-07 09:54 | Emergency Department Note ---
Impression & Plan HFrEF (heart failure with reduced ejection fraction), Asthma ED Provider Note NAME: JOSELO PERALTA AGE: 59 SEX: M : 1965 ARRIVES VIA: Walk-In INFORMANT: Patient, ED PROVIDER(S): Miryam Duke MD CHIEF COMPLAINT: Shortness of breath HPI: This is a 59-year-old male history of asthma presenting for shortness of breath. Patient was recently in the hospital for A-fib with RVR and diagnosed viral infection. He was discharged after cardioversion. He notes that since being in the hospital, he has had worsening shortness of breath, fatigue. He thinks it is asthma related. Otherwise he denies any chest pain. He does state he has previous history of pneumonia after asthma exacerbation/URIs that are viral. He reports no new fevers. No leg pain or swelling. ROS: See above HPI for pertinent positives & negatives. A total of 10 systems reviewed and were otherwise negative. PAST MEDICAL HISTORY: See Below PAST SURGICAL HISTORY: See Below FAMILY HISTORY: See Below SOCIAL HISTORY: See Below HOME MEDICATIONS: See Below ALLERGIES: See Below VITALS: See Below PHYSICAL EXAMINATION: General: resting comfortably in no acute distress Head: Normocephalic and atraumatic Eyes: Normal inspection, extraocular muscles intact Ear, nose, throat: Normal external exam Neck: Normal range of motion Respiratory: Wheezing Cardiovascular: Regular rate/rhythm, no murmur GI: soft, nontender, no guarding or rebound Extremities: nontender, moves all extremities Neuro: The patient awake and alert, appropriately conversive, no focal deficits, symmetric faces Skin: Warm, dry, and intact MEDICAL DECISION MAKING: This is a 59-year-old male with history of asthma presenting for shortness of breath. - Bloodwork is reviewed showing no significant leukocytosis, anemia, electrolyte or creatinine abnormality - chest x-ray reveals cardiomegaly with pulmonary vas congestion and small pleural effusions -This patient has no improvement after albuterol treatment. Still hypoxic however. - Due to mixed picture of asthma versus CHF with hypoxia, will admit for further workup and treatment. Discussed with Dr. Yeh for admission Differential diagnosis: CHF, pneumonia, PE, ACS, asthma, COPD Diagnostics interpreted by me: ECG: ECG independently interpreted by me with normal sinus rhythm, rate of 81, normal VT, left anterior fascicular block, normal QTc, no ST segment elevations consistent with STEMI criteria Cardiac Monitoring: An order was placed for continuous cardiac monitoring. The monitor shows a rate of 71 with sinus rhythm. 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 treated with paxlovid on 10/27/23. symptoms: flu symptoms. Migraine hx Atrial fibrillation s/p cardioversion 01/2023 [place]. on Eliquis. Follows with Dr. Rios. 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 CHF (congestive heart failure) Restless leg syndrome Surgical History (Updated 10/07/25 @ 13:01 by Gopi Yeh MD) History of cardioversion (~01/2023) at [facility] Family history of reaction to anesthesia MOTHER AND DAUGHTER>N/V Nausea and vomiting after administration of anesthetic agent History of arthroscopy left knee Hx of vasectomy History of colonoscopy History of tooth extraction History of ear surgery ? details Family History Daughter PONV (postoperative nausea and vomiting) Mother PONV (postoperative nausea and vomiting) Social History Smoking Status: Never smoker Tobacco Type: Cigars Second Hand Exposure: No; Do You Dip or Chew Tobacco: No; Tobacco Cessation Education Requested by Patient: No Hx Alcohol Use: No Hx Substance Use: No Preferred Language: [place] Communication Ability: Effective Lead Web Developer Required: No Beliefs That Will Affect Care: None Current Living Situation: Spouse current occupation: [employer] Other Information That Helps Us Care for You: No Feels Safe at Home: Yes Safety Concerns: Feels Safe At This Time Assistive Devices: None Allergies Allergies Allergy/AdvReac Type Severity Reaction Status Date / Time ceftriaxone [From Rocephin] Allergy Severe Throat Verified 06/06/25 11:54 Swelling Tetracyclines Allergy Severe VOMITING Verified 06/06/25 11:54 AND RASH amoxicillin Allergy Unknown RX AN Verified 06/06/25 11:54 INFANT clavulanic acid Allergy Unknown RX AN Verified 06/06/25 11:54 erythromycin base Allergy Unknown REACTION Verified 06/06/25 11:54 TO PCN AND AUGMENTIN Penicillins Allergy Unknown REACTION Verified 06/06/25 11:54 AN INFANT - UNKNOWN banana AdvReac Intermediate Vomiting Verified 06/06/25 11:54 hydromorphone [From Dilaudid] AdvReac Intermediate Vomiting Verified 06/06/25 11:54 Home Meds Home Medications Medication Instructions Recorded Confirmed ascorbate calcium (vitamin C) 500 500 mg PO QAM 08/17/19 10/07/25 mg tablet cholecalciferol (vitamin D3) 10 400 units PO QAM 08/17/19 10/07/25 mcg (400 unit) capsule montelukast 10 mg tablet 10 mg PO QAM 08/17/19 10/07/25 melatonin 5 mg capsule 5 mg PO HS 09/03/22 10/07/25 calcium 500 mg 3 tab PO QAM 01/05/23 10/07/25 (carb,gluconate)-magnesium 250 mg (gluc,oxide) tablet (Calcium Magnesium) multivitamin 1 tab PO QAM 01/05/23 10/07/25 famotidine 20 mg tablet (Pepcid) 20 mg PO BID PRN Heartburn 01/30/23 10/07/25 furosemide 20 mg tablet (Lasix) 20 mg PO DAILY PRN Weight Gain 01/30/23 10/07/25 fluticasone 500 mcg-salmeterol 50 1 inh inhalation BID 02/19/23 10/07/25 mcg/dose blistr powdr for inhalation (Advair Diskus) fluticasone propionate 50 1 spray intranasal DAILY PRN 10/27/23 10/07/25 mcg/actuation nasal ALLERGIES spray,suspension escitalopram oxalate 20 mg tablet 20 mg PO QAM 06/06/25 10/07/25 (Lexapro) ropinirole 2 mg tablet 2 mg PO DAILY 06/06/25 10/07/25 Previous Rx's Medication Instructions Recorded albuterol sulfate 90 mcg/actuation 2 puffs inhalation Q4H PRN 11/02/23 breath activated powder inhaler Shortness Of Breath Or Wheezing or cough #1 ea metoprolol succinate 200 mg 200 mg PO QAM #90 tabs 11/24/24 tablet,extended release 24 hr apixaban 5 mg tablet (Eliquis) 5 mg PO BID #180 tabs 04/27/25 dapagliflozin propanediol 10 mg 10 mg PO QAM #90 tabs 04/27/25 tablet (Farxiga) sacubitril 97 mg-valsartan 103 mg 1 tab PO BID #180 tabs 04/27/25 tablet (Entresto) spironolactone 25 mg tablet 25 mg PO DAILY #90 tabs 05/19/25 cyclobenzaprine 10 mg tablet 10 mg PO HS 30 days #30 tabs 10/04/25 Results & Data (ED) Vital Signs Vital Signs - 24 hr 10/07/25 09:08 10/07/25 09:26 10/07/25 09:29 Temperature 36.7 C Temperature Source Skin Pulse Rate 93 H Pulse Rate [Apical] 90 Pulse Rate from SpO2 Sensor Respiratory Rate 20 22 Respiratory Effort / Characteristics Non-Labored Spontaneous Non-Labored Spontaneous Respiratory Depth Normal Normal Respiratory Pattern Regular Regular Blood Pressure 117/71 Blood Pressure [Left Arm] 134/95 Blood Pressure Mean 86 Blood Pressure Mean [Left Arm] 108 Blood Pressure Position [Left Arm] Sitting Pulse Oximetry 97 93 88 L Oxygen Delivery Method Room Air Nasal Cannula Room Air Oxygen Flow Rate 2 Sepsis Recent Fever Within 48 Hours No Sepsis New/Unexplained Change in Mental Status N/A Sepsis Action Taken by Nursing No Action Required Oxygen Flow Rate - Titration 2 Pulse Oximetry Post Tiitration 94 10/07/25 09:33 10/07/25 10:08 10/07/25 10:43 Temperature Temperature Source Pulse Rate 83 87 Pulse Rate [Apical] 80 Pulse Rate from SpO2 Sensor Respiratory Rate 22 20 Respiratory Effort / Characteristics Non-Labored Spontaneous Respiratory Depth Normal Respiratory Pattern Regular Blood Pressure Blood Pressure [Left Arm] 143/83 H Blood Pressure Mean Blood Pressure Mean [Left Arm] 103 Blood Pressure Position [Left Arm] Sitting Pulse Oximetry 96 98 Oxygen Delivery Method Nasal Cannula Room Air Oxygen Flow Rate 2 Sepsis Recent Fever Within 48 Hours Sepsis New/Unexplained Change in Mental Status Sepsis Action Taken by Nursing Oxygen Flow Rate - Titration Pulse Oximetry Post Tiitration 10/07/25 11:12 10/07/25 11:30 10/07/25 13:00 Temperature Temperature Source Pulse Rate 77 78 87 Pulse Rate [Apical] Pulse Rate from SpO2 Sensor 77 80 86 Respiratory Rate 24 20 18 Respiratory Effort / Characteristics Respiratory Depth Respiratory Pattern Blood Pressure 124/84 135/83 121/86 Blood Pressure [Left Arm] Blood Pressure Mean 97 100 97 Blood Pressure Mean [Left Arm] Blood Pressure Position [Left Arm] Pulse Oximetry 97 95 94 Oxygen Delivery Method Nasal Cannula Nasal Cannula Nasal Cannula Oxygen Flow Rate 2 2 2 Sepsis Recent Fever Within 48 Hours Sepsis New/Unexplained Change in Mental Status Sepsis Action Taken by Nursing Oxygen Flow Rate - Titration Pulse Oximetry Post Tiitration 10/07/25 13:12 Temperature Temperature Source Pulse Rate 80 Pulse Rate [Apical] Pulse Rate from SpO2 Sensor 81 Respiratory Rate 24 Respiratory Effort / Characteristics Respiratory Depth Respiratory Pattern Blood Pressure 120/91 Blood Pressure [Left Arm] Blood Pressure Mean 100 Blood Pressure Mean [Left Arm] Blood Pressure Position [Left Arm] Pulse Oximetry 92 Oxygen Delivery Method Nasal Cannula Oxygen Flow Rate 2 Sepsis Recent Fever Within 48 Hours Sepsis New/Unexplained Change in Mental Status Sepsis Action Taken by Nursing Oxygen Flow Rate - Titration Pulse Oximetry Post Tiitration Laboratory Data 10/07/25 09:21 10/07/25 09:21 Lab Results 10/07/25 10/07/25 Range/Units 09:21 11:33 WBC 10.77 (4.8-10.8) K/ul RBC 5.76 (4.70-6.10) M/uL Hgb 16.7 (14.0-18.0) g/dL Hct 49.5 (42.0-52.0) % MCV 85.9 (80.0-100.0) fL MCH 29.0 (25.0-34.0) pg MCHC 33.7 (32.0-36.0) g/dL RDW Std Deviation 40.1 (36.4-46.3) fL RDW Coeff of Nam 13.0 (11.5-14.5) % Plt Count 258 (130-400) K/uL MPV 10.0 (9.4-12.4) fL Immature Gran % (Auto) 0.4 % Neut % (Auto) 78.7 % Lymph % (Auto) 9.5 % [place] % (Auto) 8.7 % Eos % (Auto) 2.5 % Baso % (Auto) 0.2 % Neut # (Auto) 8.48 H (1.40-6.50) K/uL Lymph # (Auto) 1.02 L (1.20-3.40) K/uL [place] # (Auto) 0.94 H (0.11-0.59) K/uL Eos # (Auto) 0.27 (0.00-0.50) K/uL Baso # (Auto) 0.02 (0.00-0.20) K/uL Immature Gran # (Auto) 0.04 (0.01-0.20) K/uL Sodium 134 L (136-145) mmol/L Potassium 4.1 (3.5-5.1) mmol/L Chloride 99 (98-107) mmol/L Carbon Dioxide 27 (21-32) mmol/L Anion Gap 8 (3-11) BUN 18 (6-23) mg/dl Creatinine 1.00 (0.6-1.4) mg/dl Est Cr Clr Drug Dosing 111.7 ml/min eGFR 87.78 BUN/Creatinine Ratio 18.0 (10-20) Glucose 135 H (70-99(Fasting)) mg/dl Calcium 9.9 (8.6-10.3) mg/dl Total Bilirubin 0.6 (0.2-1.0) mg/dl AST 38 (13-39) U/L ALT 27 (7-52) U/L Alkaline Phosphatase 51 (34-104) U/L Total Protein 7.8 (6.0-8.3) gm/dl Albumin 4.3 (3.4-5.0) gm/dl Globulin 3.5 (2.5-4.0) gm/dl Albumin/Globulin Ratio 1.2 (0.9-2) Urine Color Yellow Urine Appearance Clear (Clear) Urine pH 5.5 (4.5-7.5) Ur Specific [place] 1.023 (1.000-1.030) Urine Protein Negative (Negative) Urine Glucose (UA) 3+ H (Negative) Urine Ketones Negative (Negative) Urine Blood Negative (Negative) Urine Nitrite Negative (Negative) Urine Bilirubin Negative (Negative) Urine Urobilinogen Negative (Negative) Ur Leukocyte Esterase Negative (Negative) Urine Comment Administered Medications Discontinued Medications Albuterol (Albuterol 0.5% Neb Soln 2.5 Mg/0.5 Ml Vial) 2.5 mg NEB NOW STA; Protocol Stop: 10/07/25 09:57 Last Admin: 10/07/25 10:20 Dose: 2.5 mg Documented By: ARS Albuterol (Albuterol 0.5% Neb Soln 2.5 Mg/0.5 Ml Vial) 2.5 mg NEB NOW STA; Protocol Stop: 10/07/25 11:38 Last Admin: 10/07/25 11:43 Dose: 2.5 mg Documented By: ROCK Methylprednisolone (Methylprednisolone 125 Mg/2 Ml Vial) 125 mg IV NOW STA Stop: 10/07/25 11:07 Last Admin: 10/07/25 11:12 Dose: 125 mg Documented By: MMDoris Imaging Data Radiologist's Impression: Chest X-Ray 10/07/25 09:26 SINGLE VIEW CHEST CLINICAL HISTORY: Dyspnea FINDINGS: An AP, portable, upright chest radiograph is compared to study dated 10/02/2025 and correlated with chest CT dated 12/02/2022. The heart is enlarged. There is pulmonary vascular congestion. Small pleural effusions are suspected. There is bibasilar atelectasis. No pneumothorax is seen. The bony thorax is grossly intact. IMPRESSION: 1. Cardiomegaly with pulmonary vascular congestion. 2. Suspect small pleural effusions. ACT 112: Negative or not required by law. Electronically signed by: Reji Lauren M.D. 10/07/2025 10:01 AM Discharge Plan Visit Data Chief Complaint: Shortness of Breath/Dyspnea Stated Complaint: BREATHING CHALLENGES, COUGH, BODY PAIN ED Provider: Miryam Duke Discharge Problem: HFrEF (heart failure with reduced ejection fraction), Asthma Patient Disposition: Admitted As Inpatient Condition: Fair Discharge Instructions Interventions: ED Discharge Assessment Last Done: 10/07/25 15:03 Discharge Problem: Asthma Qualifiers: Asthma severity: moderate Asthma persistence: unspecified Asthma complication type: with acute exacerbation Qualified Code(s): J45.901 - Unspecified asthma with (acute) exacerbation
[2025-10-07 09:58] LABS: Alanine Aminotransferase 27.0 U/L (7-52); Albumin Globulin Ratio 1.2 (0.9-2); Albumin Level 4.3 gm/dl (3.4-5.0); Alkaline Phosphatase 51.0 U/L (34-104); Anion Gap 8.0 (3-11); Bilirubin,Total 0.6 mg/dl (0.2-1.0); Blood Urea Nitrogen 18.0 mg/dl (6-23); Calcium 9.9 mg/dl (8.6-10.3); Carbon Dioxide 27.0 mmol/L (21-32); Chloride 99.0 mmol/L (98-107); Creatinine Clr Calc Pharmacy 111.7 ml/min; Globulin 3.5 gm/dl (2.5-4.0); Glucose 135.0 mg/dl (70-99(Fasting)); Potassium 4.1 mmol/L (3.5-5.1); Sodium 134.0 mmol/L (136-145); Total Protein 7.8 gm/dl (6.0-8.3)
--- NOTE | 2025-10-07 10:02 | XRay Report ---
SINGLE VIEW CHEST CLINICAL HISTORY: Dyspnea FINDINGS: An AP, portable, upright chest radiograph is compared to study dated 10/02/2025 and correla lela with chest CT dated 12/02/2022. The heart is enlarged. There is pulmonary vascular congestion. Sma ll pleural effusions are suspected. There is bibasilar atelectasis. No pneumothorax is seen. The bony thorax is grossly intact. IMPRESSION: 1. Cardiomegaly with pulmonary vascular congestion. 2. Suspect small pleural effusions. ACT 112: Negative or not required by law. Electronically signed by: Reji Lauren M.D. 10/07/2025 10:01 AM
[2025-10-07] MEDS: ALBUTEROL 0.5% NEB SOLN 2.5 MG/0.5 ML VIAL NEB STA ×2 (10:20→11:43)
[2025-10-07 11:50] LABS: Appearance Urine Clear (Clear); Glucose Urine UA 3+ (Negative)
[2025-10-07] MEDS ORDERED: methylPREDNISolone 10 mg/mL (For Ped Dose < 7mg) IV SCH (15:36)
[2025-10-07] MEDS ORDERED: ONDANSETRON INJ 2 MG/ML 2 ML VIAL IV PRN (15:36)
[2025-10-07] MEDS ORDERED: MELATONIN 3 MG TAB PO PRN (15:36)
[2025-10-07] MEDS ORDERED: POLYETHYLENE (MIRALAX) 17 GM PACK PO PRN (15:36)
[2025-10-07] MEDS ORDERED: ALBUTEROL HFA 8 GM INHALER INH PRN (15:38)
[2025-10-07] MEDS ORDERED: INFLUENZA VACC TS2025-26(6m+)/PF (IIV3) 0.5mL Syr IM ONE (15:47)
[2025-10-07] MEDS ORDERED: PNEUMOCOCCAL VACCINE (PCV20) 20-VAL CONJ-DIP CRM/PF 0.5 ML SYR IM ONE (15:47)
--- NOTE | 2025-10-07 15:50 | History & Physical Report ---
Date of Service October 07, 2025 Assessment & Plan (1) Acute asthma exacerbation: Plan: Patient is a 59 y/o M PMHx nonischemic cardiomyopathy, severe persistent asthma, afib on Eliquis, and HTN who is admitted for acute asthma exacerbation. acute asthma exacerbation - ED labs CBC w/o leukocytosis, H&H 16 & 49. Na 134. K 4.1. Cr 1.0. CXR with cardiomegaly w/ pulmonary vascular congestion and suspected small pleural effusions. Patient with increased O2 requirements, on 2L NC 93%. RA 88%. Otherwise hemodynamically stable. Wheezing was appreciated on exam by ED provider. Treated with albuterol nebulizer and methylprednisolone 125mg IV, which did provide some improvement to his symptoms, however w/o complete resolution and still requiring 2L NC. - DuoNebs q6h - continue methylprednisolone 40mg IV tid - continue to monitor patient, pending evaluation in AM, can consider switching to po - albuterol inhaler 2 puffs q4h prn for wheezing , flucticasone/vilant 200 1 puff daily - incentive spirometry - cardiac monitoring - EKG prn chest pain - CBC, CMP, Mg qAM nonischemic cardiomyopathy/CHF - echo on previous admission 10/04/25 - EF 45-50% ; EF slightly lower than prior (50-55%) with septal wall abnormality and mild MR and TR. - CXR suggestive of possible small pleural effusions. Bedside pocus completed with concern for similar findings, however lungs CTA BL and appears euvolemic on exam. At this time, I do not think there would be a need to diurese him. Will continue to monitor through evening and tomorrow AM after treatment due asthma exacerbation as outlined about. If no improvement, will consider diuresis at that time. - daily weight, strict I&Os - BNP as needed - contineu home spironolactone, entresto and farxiga - serial labs as above atrial fibrillation - s/p cardioversion 10/04/25 - remains NSR with normal HR - continue home metoprolol - continue eliquis 5mg po big - EKG as needed DVT: eliquis Dispo: med/tele (2) Atrial fibrillation: (3) HFrEF (heart failure with reduced ejection fraction): (4) Nonischemic cardiomyopathy: (5) Migraine: (6) Hypertension: Admission and Anticipated Discharge Date Admission Date: October 07, 2025 History of Present Illness Chief Complaint: shortness of breath Primary Care Provider: Chad Erickson Biju Balbuena is a 59 y/o M PMHx nonischemic cardiomyopathy, severe persistent asthma and HTN presented to the ED this morning for evaluation of shortness of breath. Patient recently discharged from [facility] for management of rhinovirus & A. fib RVR. He states that his shortness of breath has been worsening since discharge and is associated with hoarse, productive cough. SOB present both at rest and on exertion. Has home rescue inhalers which he used this morning without relief. Denies chest pain, fever/chills, N/V/D. During previous admission, patient was symptomatically treated for rhinovirus and was cardioverted for afib RVR. ED labs CBC w/o leukocytosis, H&H 16 & 49. Na 134. K 4.1. Cr 1.0. CXR with cardiomegaly w/ pulmonary vascular congestion and suspected small pleural effusions. Patient with increased O2 requirements, on 2L NC 93%. RA 88%. Otherwise hemodynamically stable. Wheezing was appreciated on exam by ED provider. Treated with albuterol nebulizer and methylprednisolone 125mg IV, which did provide some improvement to his symptoms, however w/o complete resolution and still requiring 2L NC. Patient is admitted to [facility] for acute asthma exacerbation likely 2/2 recent rhinovirus infection w/o other known triggers/allergen exposures. Allergies Allergy/AdvReac Type Severity Reaction Status Date / Time ceftriaxone [From Rocephin] Allergy Severe Throat Verified 06/06/25 11:54 Swelling Tetracyclines Allergy Severe VOMITING Verified 06/06/25 11:54 AND RASH amoxicillin Allergy Unknown RX AN Verified 06/06/25 11:54 INFANT clavulanic acid Allergy Unknown RX AN Verified 06/06/25 11:54 erythromycin base Allergy Unknown REACTION Verified 06/06/25 11:54 TO PCN AND AUGMENTIN Penicillins Allergy Unknown REACTION Verified 06/06/25 11:54 AN - UNKNOWN banana AdvReac Intermediate Vomiting Verified 06/06/25 11:54 hydromorphone [From Dilaudid] AdvReac Intermediate Vomiting Verified 06/06/25 11:54 Home Medications Medication Instructions Recorded Confirmed Type ascorbate calcium (vitamin C) 500 500 mg PO QAM 08/17/19 10/07/25 History mg tablet cholecalciferol (vitamin D3) 10 400 units PO QAM 08/17/19 10/07/25 History mcg (400 unit) capsule montelukast 10 mg tablet 10 mg PO QAM 08/17/19 10/07/25 History melatonin 5 mg capsule 5 mg PO HS 09/03/22 10/07/25 History calcium 500 mg 3 tab PO QAM 01/05/23 10/07/25 History (carb,gluconate)-magnesium 250 mg (gluc,oxide) tablet (Calcium Magnesium) multivitamin 1 tab PO QAM 01/05/23 10/07/25 History famotidine 20 mg tablet (Pepcid) 20 mg PO BID PRN Heartburn 01/30/23 10/07/25 History furosemide 20 mg tablet (Lasix) 20 mg PO DAILY PRN Weight Gain 01/30/23 10/07/25 History fluticasone 500 mcg-salmeterol 50 1 inh inhalation BID 02/19/23 10/07/25 History mcg/dose blistr powdr for inhalation (Advair Diskus) fluticasone propionate 50 1 spray intranasal DAILY PRN 10/27/23 10/07/25 History mcg/actuation nasal ALLERGIES spray,suspension albuterol sulfate 90 mcg/actuation 2 puffs inhalation Q4H PRN 11/02/23 10/07/25 Rx breath activated powder inhaler Shortness Of Breath Or Wheezing or cough #1 ea metoprolol succinate 200 mg 200 mg PO QAM #90 tabs 11/24/24 10/07/25 Rx tablet,extended release 24 hr apixaban 5 mg tablet (Eliquis) 5 mg PO BID #180 tabs 04/27/25 10/07/25 Rx dapagliflozin propanediol 10 mg 10 mg PO QAM #90 tabs 04/27/25 10/07/25 Rx tablet (Farxiga) sacubitril 97 mg-valsartan 103 mg 1 tab PO BID #180 tabs 04/27/25 10/07/25 Rx tablet (Entresto) spironolactone 25 mg tablet 25 mg PO DAILY #90 tabs 05/19/25 10/07/25 Rx escitalopram oxalate 20 mg tablet 20 mg PO QAM 06/06/25 10/07/25 History (Lexapro) ropinirole 2 mg tablet 2 mg PO DAILY 06/06/25 10/07/25 History cyclobenzaprine 10 mg tablet 10 mg PO HS 30 days #30 tabs 10/04/25 10/07/25 Rx Past Med/Surg History Problem List (Updated 10/07/25 @ 17:14 by Miryam Duke MD) Acute asthma exacerbation Asthma (Acute) HFrEF (heart failure with reduced ejection fraction) (Acute) Nonischemic cardiomyopathy (Acute) Atrial fibrillation (Acute) Migraine (Acute) Hypertension Insomnia Depression Restless legs syndrome Frequent unifocal PVCs Anticoagulant long-term use History of ventricular tachycardia Medical History (Updated 10/07/25 @ 17:14 by Miryam Duke MD) 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 treated with paxlovid on 10/27/23. symptoms: flu symptoms. Migraine hx Atrial fibrillation s/p cardioversion 01/2023 [place]. on Eliquis. Follows with Dr. Rios. 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 CHF (congestive heart failure) Restless leg syndrome Surgical History (Updated 10/07/25 @ 13:01 by Gopi Yeh MD) History of cardioversion (~01/2023) at [facility] Family history of reaction to anesthesia MOTHER AND DAUGHTER>N/V Nausea and vomiting after administration of anesthetic agent History of arthroscopy left knee Hx of vasectomy History of colonoscopy History of tooth extraction History of ear surgery ? details Family History Daughter PONV (postoperative nausea and vomiting) Mother PONV (postoperative nausea and vomiting) Social History Smoking Status: Never smoker Tobacco Type: Cigars Second Hand Exposure: No; Do You Dip or Chew Tobacco: No; Tobacco Cessation Education Requested by Patient: No Hx Alcohol Use: No Hx Substance Use: No Preferred Language: Spanish Communication Ability: Effective Photocopy Operator Required: No Beliefs That Will Affect Care: None Current Living Situation: Spouse current occupation: [employer] Other Information That Helps Us Care for You: No Feels Safe at Home: Yes Safety Concerns: Feels Safe At This Time Assistive Devices: None Review of Systems Review of Systems: as per hpi Physical Exam Constitutional: WD/WN, vitals as above well developed and well nourished; no acute distress Respiratory: normal respiratory effort; no respiratory distress, no labored breathing and does not use accessory muscles adequate airflow through bilateral lung sepulveda ; no appreciable wheezing, Cardiovascular: RRR, no murmur, no edema Extremities: + edema Gastrointestinal (Abdomen): Inspection/Auscultation: abdomen not distended Percussion/Palpation: abdomen nontender and + abdomen not soft Skin: no rashes, warm and dry Neurologic: no focal neurologic deficits Psychiatric: A+Ox3, euthymic affect Results & Data Results & Data Vital Signs (Past 12 Hours) Vital Signs Temp Pulse Pulse Resp BP BP Pulse Ox 10/07/25 15:36 36.3 C L 71 14 119/73 94 10/07/25 14:15 73 21 108/83 95 10/07/25 13:12 80 24 120/91 92 10/07/25 13:00 87 18 121/86 94 10/07/25 11:30 78 20 135/83 95 10/07/25 11:12 77 24 124/84 97 10/07/25 10:43 80 20 143/83 H 98 10/07/25 10:08 87 10/07/25 09:33 83 22 96 10/07/25 09:29 88 L 10/07/25 09:26 90 22 134/95 93 10/07/25 09:08 36.7 C 93 H 20 117/71 97 O2 Del Method O2 Flow Rate 10/07/25 15:36 Room Air 10/07/25 14:15 Nasal Cannula 2 10/07/25 13:12 Nasal Cannula 2 10/07/25 13:00 Nasal Cannula 2 10/07/25 11:30 Nasal Cannula 2 10/07/25 11:12 Nasal Cannula 2 10/07/25 10:43 Room Air 10/07/25 10:08 10/07/25 09:33 Nasal Cannula 2 10/07/25 09:29 Room Air 10/07/25 09:26 Nasal Cannula 2 10/07/25 09:08 Room Air Code Status & VTE Plan VTE Prophylaxis Plan VTE Prophylaxis will be ordered: Yes Supervising Physician Co-Signing Physician Notes Attending attestation Pt seen and examined in concert with Dr. Olivo. In agreement with the documented findings as noted in the resident documentation with any exceptions or additions as noted here. Presenting with ongoing worsening of shortness of breath and cough which was persistent at end of previous admission. Single episode of diaphoresis without fever, chills/rigor, or other symptoms reported. Similar to previous h/o asthma exacerbations with apparent response to steroid therapy and nebulizer in emergency department. VS as noted. On examination, S1/S2 nl RRR no MCG. Scattered coarse breath sounds decreased at bases. Abd NT/ND BS+ve. Dyspnea with acute hypoxic respiratory failure - O2 per protocol, correction of underlying issues as noted. Asthma with acute exacerabtion - continue duoneb therapy, methylprednisolone 40mg BID starting this PM with early transition to PO steroid Atrial fibrillation - continue AC and rate control and monitor on telemetry HFpEF without recurrence of exacerbation - monitor closely for worsening/unchanging sx with low threshold for more aggressive diuresis. Else see resident documentation as noted. (2) Atrial fibrillation Atrial fibrillation type: unspecified Qualified Code(s): I48.91 - Unspecified atrial fibrillation (5) Migraine Intractability: intractable Migraine type: unspecified Status migrainosus presence: with status migrainosus Qualified Code(s): G43.911 - Migraine, unspecified, intractable, with status migrainosus
[2025-10-07] MEDS: ACETAMINOPHEN 325 MG TAB PO PRN (18:10)
[2025-10-07] MEDS: CYCLOBENZAPRINE HCL 10 MG TAB PO SCH (18:11)
[2025-10-07 19:31] LABS: Anion Gap 8.0 (3-11); Blood Urea Nitrogen 20.0 mg/dl (6-23); Calcium 9.9 mg/dl (8.6-10.3); Carbon Dioxide 27.0 mmol/L (21-32); Chloride 98.0 mmol/L (98-107); Creatinine Clr Calc Pharmacy 105.8 ml/min; Glucose 180.0 mg/dl (70-99(Fasting)); Magnesium 2.3 mg/dl (1.7-2.4); Potassium 4.7 mmol/L (3.5-5.1); Sodium 133.0 mmol/L (136-145)
[2025-10-07] MEDS: ALBUT/IPRATROP 3MG/0.5MG NEB 3 ML VIAL NEB SCH (19:56)
[2025-10-07] MEDS: APIXABAN 5 MG TABLET PO SCH (21:03)
[2025-10-07] MEDS: VALSARTAN/SACUBITRIL 103/97MG TAB PO SCH (21:03)
[2025-10-07] MEDS: MELATONIN 3 MG TAB PO SCH (21:03)
[2025-10-07] MEDS: BENZONATATE 100 MG CAPSULE PO PRN (21:32)
[2025-10-08] MEDS ORDERED: ACETAMINOPHEN 500 MG TAB PO PRN (03:24)
[2025-10-08] MEDS: ACETAMINOPHEN 325 MG TAB PO STA (03:52)
[2025-10-08 06:44] LABS: Hematocrit (blood only) 46.6 % (42.0-52.0); Hemoglobin 16.2 g/dL (14.0-18.0); Mean Corpuscular Hemoglobin 29.3 pg (25.0-34.0); Mean Corpuscular Volume 84.3 fL (80.0-100.0); Platelet Count 278 K/uL (130-400); RDW Standard Deviation 39.8 fL (36.4-46.3); Red Blood Count 5.53 M/uL (4.70-6.10); White Blood Count 13.03 K/ul (4.8-10.8)
[2025-10-08 07:14] LABS: Immature Granulocytes # (auto) 0.07 K/uL (0.01-0.20); Immature Granulocytes % (auto) 0.5 %
[2025-10-08 07:15] LABS: Alanine Aminotransferase 28.0 U/L (7-52); Albumin Globulin Ratio 1.2 (0.9-2); Albumin Level 4.3 gm/dl (3.4-5.0); Alkaline Phosphatase 48.0 U/L (34-104); Anion Gap 12.0 (3-11); Bilirubin,Total 0.5 mg/dl (0.2-1.0); Blood Urea Nitrogen 28.0 mg/dl (6-23); Calcium 10.2 mg/dl (8.6-10.3); Carbon Dioxide 22.0 mmol/L (21-32); Chloride 100.0 mmol/L (98-107); Creatinine Clr Calc Pharmacy 111.9 ml/min; Globulin 3.5 gm/dl (2.5-4.0); Glucose 151.0 mg/dl (70-99(Fasting)); Magnesium 2.4 mg/dl (1.7-2.4); Potassium 4.2 mmol/L (3.5-5.1); Sodium 134.0 mmol/L (136-145); Total Protein 7.8 gm/dl (6.0-8.3)
[2025-10-08] MEDS: SPIRONOLACTONE 25 MG TAB PO SCH (07:51)
[2025-10-08] MEDS: ASCORBIC ACID 500 MG TAB PO SCH (07:51)
[2025-10-08] MEDS: CHOLECALCIFEROL 10 MCG (400 UNITS) TAB PO SCH (07:52)
[2025-10-08] MEDS: METOPROLOL SUCC 50MG EXT REL TAB PO SCH (07:53)
[2025-10-08] MEDS: EMPAGLIFLOZIN 10 MG TAB PO SCH (07:54)
[2025-10-08] MEDS: ESCITALOPRAM OXALATE 20 MG TAB PO SCH (07:55)
[2025-10-08] MEDS: FLUTICASONE/VILANTEROL 200/25MCG 14 PUFFS/INHALER INH SCH (07:55)
[2025-10-08] MEDS: CALCIUM CARBONATE 1250MG TAB PO SCH (07:55)
[2025-10-08] MEDS: MAGNESIUM OXIDE 400 MG TAB PO SCH (08:06)
[2025-10-08] MEDS: FAMOTIDINE 20 MG TAB PO PRN (08:17)
[2025-10-08 11:15] VITALS: BP 128/83; TEMP 98.4
--- NOTE | 2025-10-08 11:40 | Electrocardiogram Report ---
Test Reason : Blood Pressure : */* mmHG Vent. Rate : 81 BPM Atrial Rate : 81 BPM P-R Int : 160 ms QRS Dur : 102 ms QT Int : 388 ms P-R-T Axes : 60 -46 25 degrees QTcB Int : 450 ms Normal sinus rhythm Left anterior fascicular block Cannot rule out Inferior infarct (cited on or before 07-Jan-2023) Cannot rule out Anterior infarct (cited on or before 12-Jan-2023) Abnormal ECG When compared with ECG of 04-Oct-2025 11:35, Left anterior fascicular block is now Present Nonspecific T wave abnormality no longer evident in Anterior leads Confirmed by Jhonny Vega ([id number]) on 10/08/2025 11:39:41 AM Referred By: Confirmed By: Jhonny Vega
[2025-10-08 12:35] VITALS: PULSE 72; RESP 16; O2SAT 94
--- NOTE | 2025-10-08 15:01 | Discharge Summary ---
Date of Service October 08, 2025 Admission HPI Per Admitting Provider Biju Balbuena is a 59 y/o M PMHx nonischemic cardiomyopathy, severe persistent asthma and HTN presented to the ED this morning for evaluation of shortness of breath. Patient recently discharged from [facility] for management of rhinovirus & A. fib RVR. He states that his shortness of breath has been worsening since discharge and is associated with hoarse, productive cough. SOB present both at rest and on exertion. Has home rescue inhalers which he used this morning without relief. Denies chest pain, fever/chills, N/V/D. During previous admission, patient was symptomatically treated for rhinovirus and was cardiover lela for afib RVR. ED labs CBC w/o leukocytosis, H&H 16 & 49. Na 134. K 4.1. Cr 1.0. CXR with cardiomegaly w/ pulmonary vascular congestion and suspected small pleural effusions. Patient with increased O2 requirements, on 2L NC 93%. RA 88%. Otherwise hemodynamically stable. Wheezing was appreciated on exam by ED provider. Treated with albuterol nebulizer and methylprednisolone 125mg IV, which did provide some improvement to his symptoms, however w/o complete resolution and still requiring 2L NC. Patient is [facility] for acute asthma exacerbation likely 2/2 recent rhinovirus infection w/o other known triggers/allergen exposures. Admission Exam Per Admitting Provider Constitutional: WD/WN, vitals as above well developed and well nourished; no acute distress Respiratory: normal respiratory effort; no respiratory distress, no labored breathing and does not use accessory muscles adequate airflow through bilateral lung sepulveda ; no appreciable wheezing, Cardiovascular: RRR, no murmur, no edema Extremities: + edema Gastrointestinal (Abdomen): Inspection/Auscultation: abdomen not distended Percussion/Palpation: abdomen nontender and + abdomen not soft Skin: no rashes, warm and dry Neurologic: no focal neurologic deficits Principal Diagnosis acute asthma exacerbation Discharge Exam Constitutional WD/WN, vitals as above well developed and well nourished; no acute distress Respiratory normal respiratory effort; no respiratory distress, no labored breathing and does not use accessory muscles Cardiovascular RRR, no murmur, no edema Extremities: + edema Gastrointestinal (Abdomen) Inspection/Auscultation: abdomen not distended Percussion/Palpation: abdomen nontender and + abdomen not soft Skin no rashes, warm and dry Psychiatric A+Ox3, euthymic affect Discharge Data Allergies Allergy/AdvReac Type Severity Reaction Status Date / Time ceftriaxone [From Rocephin] Allergy Severe Throat Verified 06/06/25 11:54 Swelling Tetracyclines Allergy Severe VOMITING Verified 06/06/25 11:54 AND RASH amoxicillin Allergy Unknown RX AN Verified 06/06/25 11:54 INFANT clavulanic acid Allergy Unknown RX AN Verified 06/06/25 11:54 INFANT erythromycin base Allergy Unknown REACTION Verified 06/06/25 11:54 TO PCN AND AUGMENTIN Penicillins Allergy Unknown REACTION Verified 06/06/25 11:54 AN - UNKNOWN banana AdvReac Intermediate Vomiting Verified 06/06/25 11:54 hydromorphone [From Dilaudid] AdvReac Intermediate Vomiting Verified 06/06/25 11:54 Consultations 10/07/25 11:44 ED Decision to Admit Stat Hospital Course (1) Acute asthma exacerbation: (2) Atrial fibrillation: (3) HFrEF (heart failure with reduced ejection fraction): (4) Nonischemic cardiomyopathy: (5) Migraine: (6) Hypertension: Plan Patient is a 59 y/o M PMHx nonischemic cardiomyopathy, severe persistent asthma, afib on Eliquis, and HTN who is admitted for acute asthma exacerbation. ED labs CBC w/o leukocytosis, H&H 16 & 49. Na 134. K 4.1. Cr 1.0. CXR with cardiomegaly w/ pulmonary vascular congestion and suspected small pleural effusions. Patient with increased O2 requirements, on 2L NC 93%. RA 88%. Otherwise hemodynamically stable. Wheezing was appreciated on exam by ED provider. Treated with albuterol nebulizer and methylprednisolone 125mg IV, which did provide some improvement to his symptoms, however w/o complete resolution and still requiring 2L NC acute asthma exacerbation - patient well-appearing this morning. Off NC this morning w/o increased work of breathing or accessory muscle usage. O2 sat 92%. Hemodynamically stable, afebrile. Telemetry with NSR with occasional PACs/PVCs HR 70s. - lungs CTA BL w/o appreciable wheezing. WBC 13.03 - likely due to steroids. - managed with DuoNebs q6 and methylprednisolone 40mg IV tid. We also continued his home inhalers: albuterol 2 puffs q4h prn for wheezing, flucticasone/vilant 200/25 mcg 1 puff inhaled daily. - no concern for superimposed infection at this time given, as WBC elevation likely in the setting of steroids and patient remains afebrile. Will hold abx therapy at this time. - on d/c will continue steroid with prednisone 50mg po daily for an additional 3 days, total treatment course of 5 days. - encourage incentive spirometry - continue home inhalers as above as prescribed. nonischemic cardiomyopathy/CHF - echo on previous admission 10/04/25 - EF 45-50% ; EF slightly lower than prior (50-55%) with septal wall abnormality and mild MR and TR. CXR suggestive of possible small pleural effusions. Bedside pocus completed with concern for similar findings, however lungs CTA BL and appears euvolemic on admission. - Today, lungs CTA BL as above. Appears to be euvolemic. Because his symptoms improved with the above treatment for acute asthma exacerbation, there is less concern for acute CHF at this time, therefore did not need diuresis during admission. - continue home spironolactone, entresto, and farxiga atrial fibrillation - s/p cardioversion 10/04/25 - remains NSR with occ PACs/PVCs as above with normal HR 70s - continue home metoprolol - continue eliquis 5mg po big DVT: eliquis Dispo: home dc today Total Time Total Time Spent Total Time Spent (In Minutes): 40 Discharge Plan Discharge Items Patient Disposition: Home - Self-Care Reason For Visit: SHORTNESS OF BREATH Discharge Diagnosis: acute asthma exacerbation Condition on Discharge: Fair Activity: Resume your previous activity Non-emergency contact: Primary Care Provider Call non-emergency contact if: you have any medication questions, your symptoms worsen and you have a fever Follow-up/Referrals: Chad Erickson MD [Primary Care Provider] - Diet: Regular Addtl Attending Provider Instructions: You were seen at [facility] for treatment of an acute asthma exacerbation. During admission, you were treated with inhaled nebulizers and IV steroids. You were also requiring oxygen via nasal cannula due to low oxygen saturations. On day of discharge, your symptoms have much improved and are no longer requiring supplement oxygen. Your steroid will be continued on discharge for an additional 3 days, for a total treatment course of 5 days. A prescription for a decongestant, nasal spray, and nebulizer treatments have also been sent to your pharmacy. Medications: NEW: prednisone 50mg by mouth daily for 3 days Tessalon pearles (benzonatate) 200mg by mouth two times a day as needed for cough guaifenesin 600mg by mouth two times a day as needed for cough/decongestion ipratropium bromide 21mcg nasal spray, 2 speays into each nostril as needed for congestion ipratropium-albuterol nebulization every 6 hours as needed for shortness of breath and wheezing Please continue other home medications as prescribed. Follow-up with your PCP within 1-2 weeks from discharge. Return to care if you experience worsening shortness of breath, chest pain, or high fevers. Pending Studies at Discharge: No Stand-Alone Forms: My [facility] [place], Work/School Release, Smoking Cessation Medications and DC Order Prescriptions: New ipratropium-albuterol 0.5 mg-3 mg(2.5 mg base)/3 mL Solution For Nebulization 3 ml NEB Q6R PRN (Reason: shortness of breath) 7 Days Qty: 90 0RF ipratropium bromide 21 mcg (0.03 %) spray,non-aerosol 2 spray intranasal BID PRN (Reason: allergy symptoms) Qty: 30 0RF Rx Instructions: administer into each nostril guaifenesin 600 mg tablet extended release 12hr 600 mg PO BID PRN (Reason: cough) Qty: 14 0RF benzonatate 200 mg capsule 200 mg PO BID PRN (Reason: cough) Qty: 14 0RF prednisone 50 mg tablet 50 mg PO DAILY 3 Days Qty: 3 0RF Continued montelukast 10 mg tablet 10 mg PO QAM ascorbate calcium (vitamin C) 500 mg tablet 500 mg PO QAM Patient Comments: 10/02- otc unable to verify cholecalciferol (vitamin D3) 400 unit capsule 400 units PO QAM Patient Comments: 10/02- otc unable to verify Eliquis 5 mg tablet 5 mg PO BID Qty: 180 3RF Hold Instructions: Resume on 11/05/23. Farxiga 10 mg tablet 10 mg PO QAM Qty: 90 3RF Entresto 97-103 mg tablet 1 tab PO BID Qty: 180 3RF spironolactone 25 mg tablet 25 mg PO DAILY Qty: 90 3RF Rx Instructions: started after cardioversion. melatonin 5 mg capsule 5 mg PO HS Patient Comments: 10/02- otc unable to verify fluticasone propion-salmeterol [Advair Diskus] 500-50 mcg/dose blister with device 1 inh inhalation BID Patient Comments: 10/02- last filled 11/14/24 30 day supply metoprolol succinate 200 mg tablet extended release 24 hr 200 mg PO QAM Qty: 90 3RF escitalopram oxalate [Lexapro] 20 mg tablet 20 mg PO QAM ropinirole 2 mg tablet 2 mg PO DAILY Calcium Magnesium 500 mg calcium -250 mg Tablet 3 tab PO QAM Patient Comments: 10/02- otc unable to verify multivitamin Tablet 1 tab PO QAM Patient Comments: 10/02- otc unable to verify famotidine [Pepcid] 20 mg Tablet 20 mg PO BID PRN (Reason: Heartburn) Patient Comments: 10/02- otc unable to verify furosemide [Lasix] 20 mg tablet 20 mg PO DAILY PRN (Reason: Weight Gain) Patient Comments: 10/02- no fill history unable to verify fluticasone propionate 50 mcg/actuation spray,suspension 1 spray INTRANASAL DAILY PRN (Reason: ALLERGIES) Patient Comments: 10/02- last filled 11/14/24 30 day supply albuterol sulfate 90 mcg/actuation aerosol powdr breath activated 2 puffs INH Q4H PRN (Reason: Shortness Of Breath Or Wheezing or cough) Qty: 1 0RF Patient Comments: 1 inh INH as needed; Rx Instructions: use with spacer device cyclobenzaprine 10 mg Tablet 10 mg PO HS 30 Days Qty: 30 0RF Discharge Orders: Discharge Order (Routine); Ordered 10/08/25 Ordered By: Yesenia Olivo Admission Data Admit Date/Time: 10/07/25 13:31 Attending Provider: Gopi Yeh Admit Provider: Yesenia Olivo Primary Care Provider: Chad Erickson Other Providers: Gopi Yeh Other Interventions: Discharge Summary Assessment (RN) Last Done: 10/08/25 15:43 Supervising Physician Co-Signing Physician Notes Attending attestation Pt seen and examined in concert with Dr. Olivo. In agreement with the documented findings as noted in the resident documentation with any exceptions or additions as noted here. Ongoing improvement of shortness of breath, cough and fatigue on present treatment for asthma exacerbation. Ambulating around the floors without difficulty. VS as noted. On examination, S1/S2 nl RRR no MCG. Scattered coarse breath sounds decreased at bases 4 hours s/p nebulizer treatment with SPO2 > 92% on RA. Abd NT/ND BS+ve. Dyspnea with acute hypoxic respiratory failure - resolved Asthma with acute exacerabtion - transition to inhaled albuterol, sybicort therapy. Complete course of prednisone as noted. Atrial fibrillation - resume home AC and rate control, no issues on telemetry during admission. HFpEF without recurrence of exacerbation - return to home regimen w/ precautions re: weight, orthopnea, and potential for further diuresis Else see resident documentation as noted. Total attending physician time spent with this patient's care on the day of discharge: 35 minutes.
== END 2025-10-08 17:32 | disposition home or self-care (01) | DRG 202 ==
LOC: ED 08:57 → 2E 13:31
DX: G43.909 Migraine, unspecified, not intractable, without status migrainosus; I50.20 Unspecified systolic (congestive) heart failure; Z79.01 Long term (current) use of anticoagulants; I48.91 Unspecified atrial fibrillation; Z88.5 Allergy status to narcotic agent; J45.51 Severe persistent asthma with (acute) exacerbation; J90 Pleural effusion, not elsewhere classified; Z88.1 Allergy status to other antibiotic agents; J96.01 Acute respiratory failure with hypoxia; I11.0 Hypertensive heart disease with heart failure; I42.8 Other cardiomyopathies; Z88.0 Allergy status to penicillin